=== PATIENT | female | born 1940 | race Caucasian/White ===

== ENCOUNTER 2017-03-17 13:35 | Inpatient (IN) | payer OTHER, BC ==
[2017-03-17 13:39] VITALS: BMI 24.7
--- NOTE | 2017-03-17 14:51 | PDOC ---
History of Present Illness - General Chief Complaint: Revisit, Lab Variance Stated Complaint: LAB VARIANCE, PCP SENT Time Seen by Provider: 03/17/17 14:44 History Source: Patient Exam Limitations: No Limitations - History of Present Illness Initial Comments: 03/17/17 14:55 Patient is a 77-year-old female with no past medical history who presents to the emergency department today complaining of low hemoglobin. Patient states that she was just seen by Dr. Sayda Fay for the first time 2 days ago. She shruthi routine lab work. Today patient was advised by Dr. Fay to come to the emergency department for a hemoglobin of 6. Patient states that she has not seen a primary care doctor in 14 years. Patient has no complaints at this time. Her last stool was yesterday and patient states that it was normal for her. Denies fevers, chills, weakness, shortness of breath, lethargy, chest pain, cough, edema, palpitations, nausea, vomiting, diarrhea, changes in her stool, blood in the stool, or changes in gait. Past History - Travel Traveled outside of the country in the last 30 days: No Close contact w/someone who was outside of country & ill: No - Past Medical History Allergies/Adverse Reactions: Allergies Allergy/AdvReac Type Severity Reaction Status Date / Time No Known Allergies Allergy Verified 03/17/17 13:40 Home Medications: Ambulatory Orders NK [No Known Home Medication] 03/17/17 Other medical history: DENIES MEDICAL HX - Psycho/Social/Smoking Cessation Hx Suicidal Ideation: No Smoking History: Never smoked Have you smoked in the past 12 months: No If you are a former smoker, when did you quit?: 30 YEARS AGO Information on smoking cessation initiated: No Hx Alcohol Use: No Drug/Substance Use Hx: No Review of Systems - Review of Systems Able to Perform ROS?: No Is the patient limited Tajik proficient: No Constitutional: No: Chills, Fever, Malaise, Weakness Respiratory: No: Cough, Shortness of Breath, SOB at Rest, Wheezing Cardiac (ROS): No: Chest Pain, Edema, Lightheadedness, Palpitations, Syncope, Chest Tightness ABD/GI: No: Abdominal Distended, Blood Streaked Bowels, Constipated, Diarrhea, Nausea, Rectal Bleeding, Vomiting, Tarry Stools : No: Burning, Dysuria, Frequency, Flank Pain, Hematuria Integumentary: No: Bruising, Dryness, Rash Neurological: No: Numbness, Paresthesia, Tingling, Weakness Hematologic/Lymphatic: Yes: Anemia. No: Easy Bruising, Swollen Glands All Other Systems: Reviewed and Negative *Physical Exam - Vital Signs Last Vital Signs Temp Pulse Resp BP Pulse Ox 98.1 F 89 16 147/57 100 03/17/17 13:37 03/17/17 13:37 03/17/17 13:37 03/17/17 13:37 03/17/17 13:37 - Physical Exam Comments: 03/17/17 14:59 GENERAL: Well developed, well nourished. Awake and alert. No acute distress. HEENT: Normocephalic, atraumatic. PERRLA, EOMI. No conjunctival pallor. Sclera are non- icteric. Moist mucous membranes. Oropharynx is clear. NECK: Supple. Full ROM. No JVD. Carotid pulses 2+ and symmetric, without bruits. No thyromegaly. No lymphadenopathy. CARDIOVASCULAR: Regular rate and rhythm. No murmurs, rubs, or gallops. Distal pulses are 2+ and symmetric. PULMONARY: No evidence of respiratory distress. Lungs clear to auscultation bilaterally. No wheezing, rales or rhonchi. ABDOMINAL: Soft. Non-tender. Non-distended. No rebound or guarding. No organomegaly. Normoactive bowel sounds. MUSCULOSKELETAL Normal range of motion at all joints. No bony deformities or tenderness. No CVA tenderness. EXTREMITIES: No cyanosis. No clubbing. No edema. No calf tenderness. SKIN: Warm and dry. Normal capillary refill. No rashes. No jaundice. NEUROLOGICAL: Alert, awake, appropriate. Cranial nerves 2-12 intact. No deficits to light touch and temperature in face, upper extremities and lower extremities. No motor deficits in the in face, upper extremities and lower extremities. Normoreflexic in the upper and lower extremities. Normal speech. Toes are down- going bilaterally. Gait is normal without ataxia. PSYCHIATRIC: Cooperative. Good eye contact. Appropriate mood and affect. ED Treatment Course - LABORATORY CBC & Chemistry Diagram: 03/17/17 16:50 03/17/17 16:50 Medical Decision Making - Medical Decision Making 03/17/17 15:02 Patient is a 77-year-old female with no past medical history who presents to the emergency department today complaining of low hemoglobin. We will start workup for anemia of unknown origin. We will redraw labs here in the emergency department. We'll also plan for transfusion. 1. CBC, CMP, PT/INR, TIBC, ferritin, haptoglobin, TSH, stool for occult blood 2. EKG, IV insert 3. Revaluate 03/17/17 16:42 Hemoglobin is 5.9 at this time. 2 units of blood ordered at this time. BUN and creatinine are elevated, however do not know baseline. SHARITA versus chronic changes? Will call Sumeet for admission at this time. 03/17/17 17:[address] Fay and she accepts the patient. Stool for occult blood negative at this time. *DC/Admit/Observation/Transfer Diagnosis at time of Disposition: Anemia Qualifiers: Anemia type: unspecified type Qualified Code(s): D64.9 - Anemia, unspecified - Discharge Dispostion Condition at time of disposition: Guarded Admit: Yes - Referrals Referrals: Sayda Segura [Primary Care Provider] -
[2017-03-17 17:04] LABS: BASOPHIL 0.8 % (0-2.0); EOSINOPHIL 1.3 % (0-4.5); MEAN CELL VOLUME 58.6 fl (80-96); MEAN PLT VOLUME 8.4 fl (7.5-11.1); NEUTROPHILS 78.6 % (42.8-82.8); PLATELET COUNT 282 K/MM3 (134-434); RDW 20.1 % (11.6-15.6); WHITE BLOOD COUNT 9.5 K/mm3 (4.0-10.0)
[2017-03-17 17:06] LABS: MCH 17.6 pg (25.7-33.7)
--- NOTE | 2017-03-17 17:20 | HP ---
Admitting History and Physical - Primary Care Physician PCP: Sayda Segura S - Admission Chief Complaint: severe anemia History of Present Illness: Patient is a 77-year-old female with past medical history of hyperthyroidism (s/ p treatment many years ag), pneumothorax COPD ex tobacco, who presents to the emergency department with severe anemia, low hemoglobin. Patient saw me for the first time in the office 2 days ago. She had routine lab work and her Hg came back at 6 so I advised pt to come to the emergency department for further w/u and treatment.Patient states that she has not seen a primary care doctor in 14 years. Patient has no complaints at this time. Her last stool was yesterday and patient states that it was normal for her. Denies fevers, chills, weakness, shortness of breath, lethargy, chest pain, cough, edema, palpitations, nausea, vomiting, diarrhea, changes in her stool, blood in the stool, or changes in gait. History Source: Patient Limitations to Obtaining History: No Limitations - Past Medical History Pulmonary: Yes: Other (see above) Endocrine: Yes: Hyperthyroidism - Smoking History Smoking history: Former smoker Have you smoked in the past 12 months: No If you are a former smoker, when did you quit?: 30 YEARS AGO - Alcohol/Substance Use Hx Alcohol Use: No History of Substance Use: reports: None - Social History Usual Living Arrangement: Yes: Alone ADL: Independent History of Recent Travel: No Home Medications - Allergies Allergies/Adverse Reactions: Allergies Allergy/AdvReac Type Severity Reaction Status Date / Time No Known Allergies Allergy Verified 03/17/17 13:40 - Home Medications Home Medications: Ambulatory Orders Cephalexin Monohydrate [Keflex -] 500 mg PO BID #14 capsule 03/19/17 Ferrous Sulfate [Feosol] 325 mg PO DAILY #30 tab 03/19/17 Levothyroxine [Synthroid -] 25 mcg PO DAILY@0700 #30 tablet 03/19/17 Family Disease History - Family Disease History Family History: Unremarkable Review of Systems - Review of Systems Constitutional: reports: Unintentional Wgt. Loss. denies: Chills, Fever, Lethargy Eyes: denies: Blind Spots, Blurred Vision, Double Vision HENT: denies: Difficult Swallowing, Ear Pain Neck: denies: Stiffness, Tenderness Cardiovascular: denies: Chest Pain, Edema, Palpitations, Shortness of Breath Respiratory: denies: Cough, SOB Gastrointestinal: denies: Abdominal Pain, Bloating, Constipation, Diarrhea, Vomiting Genitourinary: denies: Dysuria, Flank Pain Musculoskeletal: denies: Back Pain, Extremity Pain Integumentary: denies: Eczema, Rash Neurological: denies: Change in LOC, Headache, Seizure, Syncope Hematology/Lymphatic: denies: Easily Bruised, Excessive Bleeding Psychiatric: denies: Altered Sleep Pattern, Anxiety, Depression Physical Examination Vital Signs: Vital Signs Temperature 98.1 F 03/17/17 13:37 Pulse Rate 89 03/17/17 13:37 Respiratory Rate 16 03/17/17 13:37 Blood Pressure 147/57 03/17/17 13:37 O2 Sat by Pulse Oximetry (%) 100 03/17/17 13:37 Constitutional: Yes: No Distress, Calm Eyes: Yes: Conjunctiva Clear HENT: Yes: Atraumatic Neck: Yes: Supple, Thyromegaly Cardiovascular: Yes: Regular Rate and Rhythm Respiratory: Yes: CTA Bilaterally Gastrointestinal: Yes: Soft. No: Distention, Tenderness Renal/: No: CVA Tenderness - Left, CVA Tenderness - Right Musculoskeletal: No: Joint Stiffness, Joint Swelling Extremities: No: Cold, External Rotation Neurological: Yes: WNL, Alert, Oriented ...Motor Strength: WNL Psychiatric: Yes: WNL, Alert, Oriented. No: Agitated, Suicidal Ideation Labs: CBC, BMP 03/17/17 16:50 Imaging - Results Other: Report Reviewed Assessment/Plan Patient is a 77-year-old female with the above past medical history who presents to the emergency department with severe anemia admit blood transfusion GI, heme eval endocrine eval; f/u labs CAP CT scan d/w ptand daughter at bedside t time 75 min
[2017-03-17 17:23] LABS: INR 1.07 (0.82-1.09); PROTHROMBIN TIME (PATIENT) 11.8 SEC (9.98-11.88)
[2017-03-17 17:30] LABS: ANION GAP 9 (8-16); CO2 24 mmol/L (21-32); GLUCOSE,RANDOM 92 mg/dL (74-106)
[2017-03-17 17:33] LABS: ALK PHOS 166 U/L (45-117); BILIRUBIN,TOTAL 0.3 mg/dL (0.2-1.0); CREATININE 1.7 mg/dL (0.55-1.02); SGOT/AST 20 U/L (15-37); SGPT/ALT 18 U/L (12-78); TOT PROT 7.6 g/dl (6.4-8.2)
[2017-03-17 17:41] LABS: FERRITIN 3.705 ng/ml (6.9-282.5); THYROID STIMULATING HORMONE 8.71 uIU/ml (0.358-3.74)
[2017-03-17 17:53] LABS: POLYCHROMASIA 1+
[2017-03-17 17:54] LABS: ANISOCYTOSIS 1+; HYPOCHROMIA 3+; MACROCYTOSIS 1+; MICROCYTOSIS 1+; OVALOCYTE 1+; POIKILOCYTOSIS 1+
[2017-03-17 17:56] LABS: TEAR DROP CELLS RARE
[2017-03-17 17:57] LABS: PLATELET ESTIMATE ADEQUATE
[2017-03-17 17:59] LABS: RBC MORPHOLOGY COMMENT SLIDE SCANNED
[2017-03-17] MEDS ORDERED: CYANOCOBALAMIN (VITAMIN B-12) 1000 MCG/1 ML VIAL IM ONE (20:51)
[2017-03-18] MEDS: LEVOTHYROXINE NA 25 MCG TABLET (FP) PO SCH (06:27)
[2017-03-18 07:55] LABS: BASOPHIL 0.6 % (0-2.0); EOSINOPHIL 1.4 % (0-4.5); MCHC 30.5 g/dl (32.0-36.0); MEAN CELL VOLUME 65.6 fl (80-96); MEAN PLT VOLUME 8.3 fl (7.5-11.1); NEUTROPHILS 79.6 % (42.8-82.8); PLATELET COUNT 230 K/MM3 (134-434); RDW 25.4 % (11.6-15.6); WHITE BLOOD COUNT 9.3 K/mm3 (4.0-10.0)
[2017-03-18 07:57] LABS: ANION GAP 9 (8-16); CALCIUM 9.1 mg/dL (8.5-10.1); CO2 26 mmol/L (21-32); CREATININE 1.4 mg/dL (0.55-1.02)
[2017-03-18 09:22] LABS: GLUCOSE,RANDOM 103 mg/dL (74-106)
[2017-03-18] MEDS: FERROUS SO4 325 MG TABLET (FP) PO SCH (09:41)
--- NOTE | 2017-03-18 13:51 | PN ---
Progress Note, Physician Chief Complaint: s/p 2 U PRBC feels well no c/o tests and consults dw pt and daughter - Current Medication List Current Medications: Active Medications Ferrous Sulfate (Feosol -) 325 mg PO DAILY [facility] Last Admin: 03/18/17 09:41 Dose: 325 mg Levothyroxine Sodium (Synthroid -) 25 mcg PO DAILY@0700 [facility] Last Admin: 03/18/17 06:27 Dose: 25 mcg - Objective Vital Signs: Vital Signs Temperature 98.0 F 03/18/17 06:51 Pulse Rate 72 03/18/17 06:51 Respiratory Rate 18 03/18/17 06:51 Blood Pressure 174/72 03/18/17 06:51 O2 Sat by Pulse Oximetry (%) 100 03/18/17 01:00 Constitutional: Yes: No Distress, Calm Eyes: Yes: Conjunctiva Clear HENT: Yes: Atraumatic Neck: Yes: Supple Cardiovascular: Yes: Regular Rate and Rhythm Respiratory: Yes: CTA Bilaterally Gastrointestinal: Yes: Soft. No: Distention, Tenderness Genitourinary: No: CVA Tenderness - Left, CVA Tenderness - Right, Hematuria Musculoskeletal: No: Joint Stiffness, Joint Swelling Extremities: No: Cold, Cool Edema: No Peripheral Pulses WNL: Yes Neurological: Yes: WNL, Alert, Oriented ...Motor Strength: WNL Psychiatric: Yes: WNL, Alert, Oriented. No: Agitated, Suicidal Ideation Labs: CBC, BMP 03/18/17 06:30 03/18/17 06:30 INR, PTT INR 1.07 (0.82-1.09) 03/17/17 16:50 - ....Imaging Other: Report Reviewed Assessment/Plan Patient is a 77-year-old female with the above past medical history who presents to the emergency department with severe anemia admit blood transfusion GI, heme eval; consults appreciated and d/w pt; needs EGD and colonoscopy; pt prefers to have them outpt endocrine f/u; needs thyroid US and thyroid biopsy as outpt chest CT noted - possible bilateral INF vs atelectasis; no cough/ SOB; pulm eval abdomen CT noted - ovarian cyst; needs pelvic TV US, [facility] eval d/w pt and daughter at bedside t time 45 min
[2017-03-18] MEDS ORDERED: POTASSIUM CHLORIDE TABS 20 MEQ TABLET.ER (FP) PO ONE (13:53)
--- NOTE | 2017-03-18 14:42 | CONSULT ---
Consult Consult Specialty:: Hematology Referred by:: Dr.Ana Segura Reason for Consultation:: Anemia - History of Present Illness History of Present Illness: Mrs. León is a very pleasant 77 year old female who was admitted from 's office for new onset Anemia. Patient seen and examined. Patient's daughter at bedside. Patient mentioned that she has not seen a physician for years and she most recently saw who ordered labs as an OP, as Hgb was 5.6g/dl, prompted ER visit. She mentioned that she had no complains except that she felt tired and her ankles swell , which she attributed to her age. Otherwise , she denies n /v/cough/fever/chest pain/diarrhea/melena/unintentional weight loss Of note, she was told that she has "hyperactive" thyroid and she is a bit unsure of the hx of the thyroid nodule as she describes it to disappear and then re-appears. - Alcohol/Substance Use Hx Alcohol Use: No - Smoking History Smoking history: Never smoked Have you smoked in the past 12 months: No If you are a former smoker, when did you quit?: 30 YEARS AGO Home Medications - Allergies Allergies/Adverse Reactions: Allergies Allergy/AdvReac Type Severity Reaction Status Date / Time No Known Allergies Allergy Verified 03/17/17 13:40 - Home Medications Home Medications: Ambulatory Orders NK [No Known Home Medication] 03/17/17 Family Disease History - Family Disease History Family History: Denies Review of Systems - Review of Systems Constitutional: reports: Weakness. denies: Diaphoresis, Fever, Lethargy, Loss of Appetite, Unintentional Wgt. Loss HENT: reports: Hearing Loss. denies: Difficult Swallowing Neck: reports: Lumps, Other (nodule in the right side neck). denies: Decreased ROM Cardiovascular: denies: Chest Pain, Edema, Palpitations, Shortness of Breath Respiratory: denies: Cough, Exercise Intolerance, Hemoptysis Gastrointestinal: reports: Indigestion. denies: Abdominal Pain, Constipation, Melena, Nausea, Rectal Bleeding, Vomiting Genitourinary: denies: Burning Hematology/Lymphatic: denies: Easily Bruised, Excessive Bleeding, Swollen Glands Physical Exam Vital Signs: Vital Signs Temperature 98.6 F 03/18/17 10:00 Pulse Rate 82 03/18/17 10:00 Respiratory Rate 18 03/18/17 10:00 Blood Pressure 167/76 03/18/17 10:00 O2 Sat by Pulse Oximetry (%) 99 03/18/17 09:00 Constitutional: Yes: Well Nourished, No Distress, Calm Eyes: Yes: Conjunctiva Clear, EOM Intact HENT: Yes: Atraumatic, Normocephalic Neck: Yes: Supple, Trachea Midline, Other (right sided thyroid nodule). No: Lymphadenopathy Cardiovascular: Yes: Regular Rate and Rhythm Respiratory: Yes: Regular, CTA Bilaterally Gastrointestinal: Yes: Normal Bowel Sounds, Soft Edema: No Labs: CBC, BMP 03/18/17 06:30 03/18/17 06:30 Imaging - Results Chest X-ray: Report Reviewed Cat Scan: Report Reviewed Problem List - Problems (1) Anemia Code(s): D64.9 - ANEMIA, UNSPECIFIED Qualifiers: Anemia type: unspecified type Qualified Code(s): D64.9 - Anemia, unspecified (2) Hyperthyroidism determined by thyroid function test Code(s): E05.90 - THYROTOXICOSIS, UNSP WITHOUT THYROTOXIC CRISIS OR STORM R94.6 - ABNORMAL RESULTS OF THYROID FUNCTION STUDIES (3) SHARITA (acute kidney injury) Code(s): N17.9 - ACUTE KIDNEY FAILURE, UNSPECIFIED Assessment/Plan Severe Microcytic Iron deficiency anemia Renal Failure Elevated ESR Hyperthyroidism Thyroid nodule. -ferrtin of 3, likely was on ongoing progress -s/p 2U prbc with appropriate response. -give IV iron daily length of stay -Endo/GI consult placed. -will await the rest of the screening anemia labs including JUAN ANTONIO. will follow
[2017-03-18] MEDS ORDERED: IRON SUCROSE INJECTION 100 MG in SODIUM CHLORIDE 95 ML IVPB ONE (16:00)
[2017-03-18] MEDS ORDERED: PT OWN MED DRAWER 7, Y5N ONE (16:02)
--- NOTE | 2017-03-18 16:54 | CONSULT ---
Consult Consult Specialty:: Endocrinology Referred by:: Dr Sayda Segura Reason for Consultation:: Thyroid mass - History of Present Illness Chief Complaint: Anemia History of Present Illness: This is a 77-year-old female with h/o hyperthyroidism treated with Radioiodine many years ago who hadn't seen any physician for about 14 years until recently presented to the emergency department today complaining of low hemoglobin. Patient stated that she was just seen by Dr. Sayda Fay for the first time 2 days ago and found to have low Hemoglobin. . Patient has no complaints at this time except for feeling a little tired. She says she notices the right neck mass off and on, - History Source History Provided By: Patient, Family Member, Medical Record Limitations to Obtaining History: No Limitations - Past Medical History Endocrine: Yes: Hyperthyroidism - Alcohol/Substance Use Hx Alcohol Use: No - Smoking History Smoking history: Never smoked Have you smoked in the past 12 months: No If you are a former smoker, when did you quit?: 30 YEARS AGO Home Medications - Allergies Allergies/Adverse Reactions: Allergies Allergy/AdvReac Type Severity Reaction Status Date / Time No Known Allergies Allergy Verified 03/17/17 13:40 - Home Medications Home Medications: Ambulatory Orders NK [No Known Home Medication] 03/17/17 Review of Systems - Review of Systems Constitutional: reports: Weakness Eyes: reports: No Symptoms HENT: reports: No Symptoms Neck: reports: No Symptoms Cardiovascular: reports: No Symptoms Respiratory: reports: No Symptoms Gastrointestinal: reports: No Symptoms Genitourinary: reports: No Symptoms Musculoskeletal: reports: No Symptoms Integumentary: reports: No Symptoms Neurological: reports: No Symptoms Endocrine: reports: No Symptoms Physical Exam Vital Signs: Vital Signs Temperature 98.1 F 03/18/17 15:33 Pulse Rate 76 03/18/17 15:33 Respiratory Rate 18 03/18/17 15:33 Blood Pressure 155/75 03/18/17 15:33 O2 Sat by Pulse Oximetry (%) 99 03/18/17 09:00 Constitutional: Yes: No Distress, Calm Eyes: Yes: Conjunctiva Clear, EOM Intact HENT: Yes: Atraumatic, Normocephalic Neck: Yes: Supple, Trachea Midline, Thyromegaly, Other (Palpable Rt thyroid nodule) Labs: CBC, BMP 03/18/17 06:30 03/18/17 06:30 Imaging - Results Cat Scan: Report Reviewed Assessment/Plan AP; Thyroid nodules: 2.8 cm and 1.9 cm low attenuation lesions in Rt thyroid. Hypothyroidism s/p RadioIodine ablation of thyroid for Hyperthyroidism Anemia ?Atelectasis ?Colitis Sonogram of thyroid. Will probably need FNA of the nodules 5 to 10 % risk of malignancy with thyroid nodules discussed On LT4 25 QD Repeat TFT in 4 weeks. Will f/u
--- NOTE | 2017-03-18 17:23 | CON.PULM ---
Consult Consult Specialty:: PULM/CCM Referred by:: BALWINDER Reason for Consultation:: Abnormal CT chest - History of Present Illness Chief Complaint: Symptomatic Anemia History of Present Illness: 77 F, with listed medical history. Previous 2 PPD smoker. Developed a spontaneous Right PTX about 30 years ago that required chest tube decompression here at [facility]. Patient quit smoking after this event. Admitted due to symptomatic anemia. She received 2 units of RBCs and reports feeling better. No CP or overt SOB, but some ESCOBAR. No fever or chills. No hemoptysis. CT : scattered areas of ground glass opacities -> likely atelectasis and chronic disease. DDX : Mild pulmonary vascular congestion related to severe anemia (patient also developed some mild LE peripheral edema over the past several weeks). - History Source History Provided By: Patient Limitations to Obtaining History: No Limitations - Past Medical History Pulmonary: Yes: Other (Right PTX ). No: O2 Dependent, Pulmonary Embolus Endocrine: Yes: Hyperthyroidism - Alcohol/Substance Use Hx Alcohol Use: No - Smoking History Smoking history: Never smoked Have you smoked in the past 12 months: No If you are a former smoker, when did you quit?: 30 YEARS AGO Home Medications - Allergies Allergies/Adverse Reactions: Allergies Allergy/AdvReac Type Severity Reaction Status Date / Time No Known Allergies Allergy Verified 03/17/17 13:40 - Home Medications Home Medications: Ambulatory Orders NK [No Known Home Medication] 03/17/17 Review of Systems - Review of Systems Constitutional: reports: Lethargy, Malaise. denies: Chills, Fever, Night Sweats , Unintentional Wgt. Loss Eyes: reports: No Symptoms HENT: reports: No Symptoms Neck: reports: No Symptoms Cardiovascular: reports: No Symptoms Respiratory: reports: SOB on Exertion. denies: Cough, Hemoptysis, Snoring, SOB , Wheezing Gastrointestinal: reports: No Symptoms Genitourinary: reports: No Symptoms Breasts: reports: No Symptoms Reported Musculoskeletal: reports: No Symptoms Integumentary: reports: No Symptoms Neurological: reports: No Symptoms Endocrine: reports: No Symptoms Hematology/Lymphatic: reports: No Symptoms Psychiatric: reports: No Symptoms Physical Exam Vital Sings: Vital Signs Temperature 98.1 F 03/18/17 15:33 Pulse Rate 76 03/18/17 15:33 Respiratory Rate 18 03/18/17 15:33 Blood Pressure 155/75 03/18/17 15:33 O2 Sat by Pulse Oximetry (%) 99 03/18/17 09:00 Constitutional: Yes: No Distress, Calm Eyes: Yes: Conjunctiva Clear, EOM Intact HENT: Yes: Atraumatic, Normocephalic Neck: Yes: Supple, Trachea Midline Cardiovascular: Yes: Regular Rate and Rhythm Respiratory: Yes: CTA Bilaterally. No: Accessory Muscle Use, Orthopnea, Rales, Rhonchi, SOB, Stridor, Tachypnea, Wheezes ...Inspection: Yes: WNL Gastrointestinal: Yes: Normal Bowel Sounds, Soft Renal/: Yes: WNL Musculoskeletal: Yes: WNL Extremities: Yes: WNL Edema: Yes Peripheral Pulses WNL: Yes Integumentary: Yes: WNL Neurological: Yes: WNL, Alert, Oriented ...Motor Strength: WNL Psychiatric: Yes: WNL, Alert, Oriented Labs: CBC, BMP 03/18/17 06:30 03/18/17 06:30 Imaging - Results Chest X-ray: Report Reviewed, Image Reviewed Cat Scan: Report Reviewed, Image Reviewed Problem List - Problems (1) Anemia Code(s): D64.9 - ANEMIA, UNSPECIFIED Qualifiers: Anemia type: unspecified type Qualified Code(s): D64.9 - Anemia, unspecified (2) Hyperthyroidism determined by thyroid function test Code(s): E05.90 - THYROTOXICOSIS, UNSP WITHOUT THYROTOXIC CRISIS OR STORM R94.6 - ABNORMAL RESULTS OF THYROID FUNCTION STUDIES (3) Atelectasis of both lungs Code(s): J98.11 - ATELECTASIS (4) 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 Assessment/Plan Transfusional support to normal transfusion thresholds O2 as needed No indication for steroids at this time PFTs once stable as an outpatient BD TX PRN Continued smoking abstinence discussed I do not feel repeat imaging would be necessary in this scenario Will follow Thank you. Dr Mckeon
--- NOTE | 2017-03-18 17:45 | CON.GI ---
Consult - History of Present Illness Chief Complaint: Asymoptomatic found with severe anemia H/H 5.8 History of Present Illness: Patient is a 77 year old female with past medical history of hyperthyroidism presented to the ED on the recommendation of Dr. Segura after receiving low hemoglobin results. Patient states that she has not been seen by a physician for over 20 years. She was seen by Dr. Segura for the first time after being encouraged by her family. Patient states than she was feeling fine except for feeling very tired over the past month. Her bowel movements have been normal. In the past she had a transient episode of alternating bouts of diareah and constipation but this was self limited. She reports decreased appetite over the past month period, a weight loss of 17 lbs during this time. She denies dysphagia, abdominal pain, nausea vomiting, black or bloody stools, chest pains , palpitations. Her son has a history of "ibd". She has never had an EGD or colonoscopy. - History Source History Provided By: Patient, Family Member - Past Medical History Pulmonary: Yes: Other (Right PTX ). No: O2 Dependent, Pulmonary Embolus Endocrine: Yes: Hyperthyroidism - Alcohol/Substance Use Hx Alcohol Use: No - Smoking History Smoking history: Never smoked Have you smoked in the past 12 months: No If you are a former smoker, when did you quit?: 30 YEARS AGO Home Medications - Allergies Allergies/Adverse Reactions: Allergies Allergy/AdvReac Type Severity Reaction Status Date / Time No Known Allergies Allergy Verified 03/17/17 13:40 - Home Medications Home Medications: Ambulatory Orders NK [No Known Home Medication] 03/17/17 Family Disease History - Family Disease History Family Disease History: Other: Son ("IBD") Review of Systems - Review of Systems Constitutional: reports: Lethargy, Malaise, Unintentional Wgt. Loss (poor appetite and weight loss of 17 lbs over one month) HENT: reports: No Symptoms Neck: reports: Lumps (Thyroid nodule) Cardiovascular: reports: No Symptoms Respiratory: reports: SOB on Exertion Gastrointestinal: reports: No Symptoms. denies: Abdominal Pain, Bloating, Constipation, Diarrhea, Dysphagia, Indigestion, Melena, Nausea, Rectal Bleeding , Vomiting, Vomiting Blood, Other Genitourinary: reports: No Symptoms Musculoskeletal: reports: No Symptoms Integumentary: reports: No Symptoms Neurological: reports: No Symptoms Endocrine: reports: Unexplained Weight Loss. denies: No Symptoms, Excessive Sweating, Flushing, Increased Hunger, Increased Thirst, Unexplained Weight Gain (" unintentional loss 17 lb over one month period'), Other Hematology/Lymphatic: reports: No Symptoms Physical Exam-GI Vital Signs: Vital Signs Temperature 98.1 F 03/18/17 17:22 Pulse Rate 78 03/18/17 17:22 Respiratory Rate 20 03/18/17 17:22 Blood Pressure 143/62 03/18/17 17:22 O2 Sat by Pulse Oximetry (%) 99 03/18/17 09:00 Constitutional: Yes: Well Nourished, No Distress, Calm Eyes: Yes: WNL HENT: Yes: WNL, Atraumatic, Normocephalic Neck: Yes: Thyromegaly (right neck thyroid nodule) Cardiovascular: Yes: WNL, Regular Rate and Rhythm Respiratory: Yes: WNL, Regular, CTA Bilaterally Gastrointestinal Inspection: Yes: WNL. No: Ascites, Distention, Hernia, Scars, Other ...Auscultate: Yes: Normoactive Bowel Sounds ...Palpate: Yes: Soft. No: Firm/Rigid, Guarding, Hepatomegaly, Mass, Pulsatile Mass, Splenomegaly, Tenderness, Tenderness, Epigastium, Tenderness, Rebound, Other ...Percussion: Yes: Tympanitic Musculoskeletal: Yes: WNL Extremities: Yes: WNL Edema: LLE: 1+, RLE: 1+ Neurological: Yes: WNL Psychiatric: Yes: WNL Labs: CBC, BMP 03/18/17 06:30 03/18/17 06:30 INR, PTT INR 1.07 (0.82-1.09) 03/17/17 16:50 Problem List - Problems (1) Anemia Code(s): D64.9 - ANEMIA, UNSPECIFIED Qualifiers: Anemia type: unspecified type Qualified Code(s): D64.9 - Anemia, unspecified (2) Hyperthyroidism determined by thyroid function test Assessment/Plan: As per patient had an upcoming outpatient appointment for sonogram of the thyroid gland Code(s): E05.90 - THYROTOXICOSIS, UNSP WITHOUT THYROTOXIC CRISIS OR STORM R94.6 - ABNORMAL RESULTS OF THYROID FUNCTION STUDIES Assessment/Plan Regis looks great. She remains asymptomatic. I have noted her H/H has increased 8.6/28.2 after 2 units of PRBC. I have noted that she is receiving IV iron. Her recent weight loss of 17lbs, and iron deficiency anemia should be evaluated. I recommend that she should have an EGD and colonoscopy. Considering that she has not been seen by a physician in many years, she should first be cleared by cardiology. I have explained my recommendation for EGD and colonoscopy and I have reviewed the risks including bleeding and perforation. She is willing to proceed with informed consent. However, the patient and family has requested Dr. Willadr to perform the procedure. I have explained to the patient and family that Dr. Willard is willing to perform the procedure once he has returned from vacation at the end of next week. This can be done in or outpatient if she has been medically cleared. I have explained to her that if her cbc starts trending downwards or she becomes unstable the procedure may have to be done sooner by the covering physician Dr. Joy Rod. I will leave the ultimate decision to Dr. Segura. She understands and agrees. PLAN EGD and colonoscopy once medically cleared by cardiology May be done outpatient by Dr. Willard, if ok with Dr. Segura Keep hemoglobin >8 Await comprehensive lab studies including iron studies, tumor markers
--- NOTE | 2017-03-18 23:23 | CON.OBG ---
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 Sayda Segura Reason for Consultation:: 77yo P2 with left adnexal cystic mass on CT scan - History of Present Illness Chief Complaint: Patient was admitted with severe anemia and some weakness. In the course of her evaluation found to have a cystic left adnexal mass. History of Present Illness: Not seen by doctors x 14 yrs and has been doing well until 2-3 months ago when she began to lose weight. The pt reports losing 15lb/3mo. She reports episodes of abdominal bloating with occasional diarrhea and constipation. She denies pain , nausea, vomiting, fever or chills. No postmenopausal bleeding. 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 No: O2 Dependent, Pulmonary Embolus Gastrointestinal: Yes: Constipation Hepatobiliary: No: Cirrhosis, Cholelithiasis, Cholecystitis, Choledocholithiasis , Hepatitis A, Hepatitis B, Hepatitis C, Other Renal/: No: Renal Failure, Renal Inusuff, BPH, Cancer, Hematuria, Hemodialysis , Neurogenic Bladder, Renal Calculi, UTI, Other ...: No ...Para: 2 Heme/Onc: Yes: Anemia Infectious Disease: No: AIDS, C-Diff, Herpes Zoster, HIV, MRSA, STD's, Tuberculosis, VREF, Other Psych: No: Addictions, Anxiety, Bipolar, Depression, Panic, Psychosis, Schizophrenia, Other Musculoskeletal: No: Bursitis, Chronic low back pain, Hemiparesis, Hemiplegia, Osteoarthritis, Paraplegia, Other Rheumatology: No: Fibromyalgia, Gout, Lupus, Rheumatoid Arthritis, Sarcoidosis, Vasculitis, Other ENT: No: Allergic Rhinitis, Sinusitis, Other Endocrine: Yes: Hyperthyroidism, Hypothyroidism (s/p radioablation for hyperthyroidism) Dermatology: No: Basal Cell, Cellulitis, Eczema, Melanoma, Psoriasis, Squamous Cell, Other - Past Surgical History Past Surgical History: Yes: (x2 via midline vertical incison, 1st C/S complicated by wound dehiscence) - Alcohol/Substance Use Hx Alcohol Use: No History of Substance Use: reports: None - Smoking History Smoking history: Former smoker Have you smoked in the past 12 months: No If you are a former smoker, when did you quit?: 30 YEARS AGO - Social History Usual Living Arrangement: Alone ADL: Independent History of Recent Travel: No Home Medications - Allergies Allergies/Adverse Reactions: Allergies Allergy/AdvReac Type Severity Reaction Status Date / Time No Known Allergies Allergy Verified 03/17/17 13:40 - Home Medications Home Medications: Ambulatory Orders NK [No Known Home Medication] 03/17/17 Family Disease History - Family Disease History Family Disease History: Other: Son ("IBD"), Daughter (lupus) Review of Systems - Review of Systems Constitutional: reports: Unintentional Wgt. Loss, Weakness Eyes: reports: No Symptoms HENT: reports: No Symptoms Neck: reports: No Symptoms Cardiovascular: reports: No Symptoms Respiratory: reports: No Symptoms Gastrointestinal: reports: Constipation Genitourinary: reports: No Symptoms Breasts: reports: No Symptoms Reported Musculoskeletal: reports: No Symptoms Integumentary: reports: No Symptoms Neurological: reports: No Symptoms Endocrine: reports: Unexplained Weight Loss Hematology/Lymphatic: reports: No Symptoms Psychiatric: reports: No Symptoms Pain Intensity: 0 Physical Exam-WASTE DUSTER Vital Signs: Vital Signs Temperature 98.1 F 03/18/17 17:22 Pulse Rate 78 03/18/17 17:22 Respiratory Rate 20 03/18/17 20:36 Blood Pressure 143/62 03/18/17 17:22 O2 Sat by Pulse Oximetry (%) 100 03/18/17 20:36 Constitutional: Yes: Well Nourished, No Distress, Calm Eyes: Yes: WNL, Conjunctiva Clear HENT: Yes: WNL, Atraumatic, Normocephalic Neck: Yes: WNL, Supple, Trachea Midline Cardiovascular: Yes: WNL, Regular Rate and Rhythm Respiratory: Yes: WNL, Regular, CTA Bilaterally Gastrointestinal: Yes: WNL, Normal Bowel Sounds, Soft. No: Palpable Mass, Pulsatile Mass ...Rectal Exam: Yes: Deferred Renal/: Yes: WNL Pelvis: Yes: Other (declined) External Genitalia: Yes: Other (declined) Internal Exam Deferred: Yes Vaginal Exam: Yes: Other (declined) Musculoskeletal: Yes: WNL Extremities: Yes: WNL Edema: No Integumentary: Yes: WNL Neurological: Yes: WNL, Alert, Oriented ...Motor Strength: WNL Psychiatric: Yes: WNL, Alert, Oriented Labs: CBC, BMP 03/18/17 06:30 03/18/17 06:30 Assessment/Plan 77yo P2 with severe anemia and episodes of abdominal bloating and weight loss, found to have a 5cm left adnexal cystic mass. The pt is undergoid evlauation and treatment for severe anemia. I will follow the pt. Pelvic US is planned either as in-patient or outpatient. I discussed with the pt that all adnexal masses are considered to be potentially cancer until proven otherwise. I gave her my office information and advised to follow-up after discharge. Possible need for surgical excision of the left adnexal mass explained. This can be arranged after the pt is discharged and her w/u is completed.
[2017-03-19 06:07] LABS: FREE T3 2.7 pg/mL (2.0-4.4)
[2017-03-19 06:07] LABS: SERUM IRON 12 ug/dL (27-139); TOTAL IRON BINDING CAPACITY 404 ug/dL (250-450); UIBC 392 ug/dL (118-369)
[2017-03-19] MEDS: LEVOTHYROXINE NA 25 MCG TABLET (FP) PO SCH (06:25)
[2017-03-19 06:44] VITALS: TEMP 97.9
[2017-03-19 07:18] LABS: BASOPHIL 0.7 % (0-2.0); EOSINOPHIL 2.1 % (0-4.5); MCH 20.1 pg (25.7-33.7); MCHC 31.5 g/dl (32.0-36.0); MEAN CELL VOLUME 63.8 fl (80-96); MEAN PLT VOLUME 8.3 fl (7.5-11.1); NEUTROPHILS 78.7 % (42.8-82.8); PLATELET COUNT 214 K/MM3 (134-434); WHITE BLOOD COUNT 8.8 K/mm3 (4.0-10.0)
[2017-03-19 07:45] LABS: ANION GAP 10 (8-16); CALCIUM 8.7 mg/dL (8.5-10.1); CO2 24 mmol/L (21-32); CREATININE 1.4 mg/dL (0.55-1.02)
[2017-03-19 08:18] LABS: GLUCOSE,RANDOM 96 mg/dL (74-106)
[2017-03-19] MEDS: FERROUS SO4 325 MG TABLET (FP) PO SCH (09:57)
--- NOTE | 2017-03-19 10:03 | PN ---
Progress Note (short form) - Note Progress Note: PULMONARY Denies shortness of breath, cough, fevers or chills. Last Vital Signs Temp Pulse Resp BP Pulse Ox 97.9 F 73 20 142/64 100 03/19/17 06:42 03/19/17 06:42 03/19/17 06:42 03/19/17 06:42 03/18/17 20:36 Gen: NAD at rest Heart: RRR Lung: decreased breath sounds at the bases Abd: soft, nontender Ext: distal edema CBC, BMP 03/19/17 06:30 03/19/17 06:30 Active Medications Ferrous Sulfate (Feosol -) 325 mg PO DAILY [facility] Last Admin: 03/19/17 09:57 Dose: 325 mg Levothyroxine Sodium (Synthroid -) 25 mcg PO DAILY@0700 [facility] Last Admin: 03/19/17 06:25 Dose: 25 mcg A/P Microcytic Anemia s/p PRBC transfusions Acute Kidney Injury Hyperthyroidism Nonspecific infiltrates on CT chest - f/u echocardiogram - outpt PFTs due to smoking history - GI evaluation in progress - DVT prophylaxis
[2017-03-19 11:32] VITALS: BP 155/88; PULSE 77
--- NOTE | 2017-03-19 11:53 | CON.CARD ---
Consult Consult Specialty:: Cardiology Referred by:: Sayda Segura MD Reason for Consultation:: Pre-procedural cardiovascular evaluation - History of Present Illness Chief Complaint: Severe anemia History of Present Illness: Patient is a 77-year-old female with past medical history hypothyroidism, previous 2 PPD smoker, spontaneous right PTX 30 years ago post chest tube decompression referred for low hemoglobin of 6 with symptomatic fatigue over last month, inadvertent weight loss, but denies abd pain, melena, hematochezia, NSAID use, chest pain, dyspnea, near or true syncope, palpitations, orthopnea, PND or LE edema. 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 No: O2 Dependent, Pulmonary Embolus Gastrointestinal: Yes: Constipation Hepatobiliary: No: Cirrhosis, Cholelithiasis, Cholecystitis, Choledocholithiasis , Hepatitis A, Hepatitis B, Hepatitis C, Other Renal/: No: Renal Failure, Renal Inusuff, BPH, Cancer, Hematuria, Hemodialysis , Neurogenic Bladder, Renal Calculi, UTI, Other ...: No Infectious Disease: No: AIDS, C-Diff, Herpes Zoster, HIV, MRSA, STD's, Tuberculosis, VREF, Other Psych: No: Addictions, Anxiety, Bipolar, Depression, Panic, Psychosis, Schizophrenia, Other Musculoskeletal: No: Bursitis, Chronic low back pain, Hemiparesis, Hemiplegia, Osteoarthritis, Paraplegia, Other Rheumatology: No: Fibromyalgia, Gout, Lupus, Rheumatoid Arthritis, Sarcoidosis, Vasculitis, Other ENT: No: Allergic Rhinitis, Sinusitis, Other Endocrine: Yes: Hyperthyroidism Dermatology: No: Basal Cell, Cellulitis, Eczema, Melanoma, Psoriasis, Squamous Cell, Other - Past Surgical History Past Surgical History: Yes: (x2 via midline vertical incison, 1st C/S complicated by wound dehiscence) - Alcohol/Substance Use Hx Alcohol Use: No History of Substance Use: reports: None - Smoking History Smoking history: Never smoked Have you smoked in the past 12 months: No If you are a former smoker, when did you quit?: 30 YEARS AGO - Social History Usual Living Arrangement: Alone ADL: Independent History of Recent Travel: No Home Medications - Allergies Allergies/Adverse Reactions: Allergies Allergy/AdvReac Type Severity Reaction Status Date / Time No Known Allergies Allergy Verified 03/17/17 13:40 - Home Medications Home Medications: Ambulatory Orders NK [No Known Home Medication] 03/17/17 Family Disease History - Family Disease History Family Disease History: Other: Son ("IBD"), Daughter (lupus) Review of Systems - Review of Systems Constitutional: reports: Weakness Vital Signs: Vital Signs Temperature 97.9 F 03/19/17 09:00 Pulse Rate 77 03/19/17 09:00 Respiratory Rate 20 03/19/17 09:00 Blood Pressure 155/88 03/19/17 09:00 O2 Sat by Pulse Oximetry (%) 100 03/18/17 20:36 Constitutional: Yes: No Distress, Calm Neck: Yes: Supple Respiratory: Yes: Regular, CTA Bilaterally Gastrointestinal: Yes: Soft, Hypoactive Bowel Sounds Cardiovascular: Yes: Regular Rate and Rhythm JVD: No Carotid Bruit: No Heart Sounds: Yes: S1, S2 Murmur: Yes: Systolic Murmur, Grade 1 Edema: No - Other Data Labs, Other Data: CBC, BMP 03/19/17 06:30 03/19/17 06:30 INR, PTT INR 1.07 (0.82-1.09) 03/17/17 16:50 Troponin, BNP 03/19/17 06:30 B-Natriuretic Peptide 1331.16 H Troponin, BNP 03/19/17 06:30 B-Natriuretic Peptide 1331.16 H NSR @ [address]-T changes Echo: Pending Imaging - Results Cat Scan: Report Reviewed (CT : scattered areas of ground glass opacities -> likely atelectasis and chronic disease.) EKG: Report Reviewed (NSR @ [address]-T changes) Problem List - Problems (1) SHARITA (acute kidney injury) Code(s): N17.9 - ACUTE KIDNEY FAILURE, UNSPECIFIED (2) Anemia Code(s): D64.9 - ANEMIA, UNSPECIFIED Qualifiers: Anemia type: unspecified type Qualified Code(s): D64.9 - Anemia, unspecified (3) Atelectasis of both lungs Code(s): J98.11 - ATELECTASIS (4) 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 (5) Pre-procedural cardiovascular examination Code(s): Z01.810 - ENCOUNTER FOR PREPROCEDURAL CARDIOVASCULAR EXAMINATION (6) Hypothyroidism Code(s): E03.9 - HYPOTHYROIDISM, UNSPECIFIED Qualifiers: Hypothyroidism type: unspecified Qualified Code(s): E03.9 - Hypothyroidism, unspecified Assessment/Plan 1. Pre-procedural cardiovascular evaluation 2. Hypothyroidism 3. Microcytic Anemia s/p PRBC transfusions 4. Acute Kidney Injury 5. Nonspecific infiltrates on CT chest P:1. Transfuse to maintain Hgb>8.0, f/u iron studies and tumor markers 2. F/u echocardiogram results, dose thyroid replacement per TSH 3. Given absence of symptoms of acute coronary syndrome, decompensated CHF or malignant arrhythmia, there are no absolute cardiovascular contraindications against proceeding with planned EGD/colonoscopy 4. Outpt PFTs due to smoking history, IS, BD prn 5. Thank you for consultative opportunity
--- NOTE | 2017-03-19 13:10 | DS ---
Physical Examination Vital Signs: Vital Signs Temperature 97.9 F 03/19/17 09:00 Pulse Rate 77 03/19/17 09:00 Respiratory Rate 20 03/19/17 09:00 Blood Pressure 155/88 03/19/17 09:00 O2 Sat by Pulse Oximetry (%) 100 03/18/17 20:36 Findings/Remarks: feeling well, wants to go home, has more tests scheduled for tomorrow (mammogram , thyroid US) which can be done outpt only. Has a small area of phlebitis LUE forearm over the site of the peripheral IV (removed); d/w pt and daughter local ice, topical bacitracin, if worse or not better by tomorrow to start po keflex; ordered from pharmacy; if fever > 101 to RTER. consults reviewed and d.w pt and aprilagamericoer at bedside; w/u needed EGD colonoscopy , ROCKET ENGINE TESTER US, heme f/u, endocrine f.u and thyroid US and biopsy; pt said she will do them all BP borderline high; pt prefers not to take any meds now; likes and eats salty food; advised LS diet, check BP home and call me if > 150/90; high TSH, started on synthroid, f/u TFTs outpt; po iron; f/ u labs outpt pulm consult d/w pt; needs incentive spirometry; f/u chest CT outpt and pulm f/ u outpt seen by cardiology for EGD colonoscopy clearance echo WNL d/w pt and daughter all the above scripts done t time 45 min Constitutional: Yes: No Distress, Calm Eyes: Yes: Conjunctiva Clear HENT: Yes: Atraumatic Neck: Yes: Supple Cardiovascular: Yes: Regular Rate and Rhythm Respiratory: Yes: Regular, CTA Bilaterally Gastrointestinal: Yes: Soft Renal/: No: CVA Tenderness - Left, CVA Tenderness - Right, Hematuria Musculoskeletal: No: Back Pain, Joint Stiffness Extremities: Yes: Other (L superficial phlebitis). No: Calf Tenderness, Cold, Cool, Cyanosis Edema: No Peripheral Pulses WNL: Yes Integumentary: No: Rash, Venous Stasis Changes Neurological: Yes: WNL, Alert, Oriented ...Motor Strength: WNL Psychiatric: Yes: WNL, Alert, Oriented. No: Agitated, Suicidal Ideation Labs: CBC, BMP 03/19/17 06:30 03/19/17 06:30 Discharge Summary Reason For Visit: ANEMIA Current Active Problems SHARITA (acute kidney injury) (Acute) Anemia (Acute) Atelectasis of both lungs (Acute) 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) (Acute) Hyperthyroidism determined by thyroid function test (Acute) Hypothyroidism (Acute) Pre-procedural cardiovascular examination (Acute) Procedures: Principal: blood transfusions for severe anemia Other Procedures: CAP CT, GI, heme eval and w/u of anemia Hospital Course: improved with above; also seen by endocrine for thyroid mass, ROCKET ENGINE TESTER for ovariancyst,pulm for abNL chest CT DC home, f/u as advised. Condition: Guarded - Instructions Diet, Activity, Other Instructions: f/u PCP and labs in 1 week; check BP home call MD if >160/90; check BP in office in 1 week; LS diet GI dr Willard for EGD colonoscopy next week outpt f/u chest CT in 1 month cardiology, pulmonary f/u endocrine f/u TFTs x 1 months; thyroid biopsy outpt ROCKET ENGINE TESTER f/u for ovarian cyst, TV/US outpt f/u tumor markers heme f/u dr Gomez, spep upep results pending take meds as advised local cold compresses L forearm superficial phlebitis, topical bacitracin; if not better by tomorrow start keflex (ordered); if worse, puss/ fluctuence, fever /chills call me ewa and go to ER RTER if any CP/SOB/ bleed d/w pt and daughter Referrals: Sayda Segura [Primary Care Provider] - Eddie Willard MD [Staff Physician] - Ap Rizzo MD, MD [Staff Physician] - Luisito Gomez MD [Staff Physician] - Ronny Whitman MD [Staff Physician] - Alvino Hanna MD [Staff Physician] - Disposition: HOME - Home Medications Comprehensive Discharge Medication List: Ambulatory Orders Cephalexin Monohydrate [Keflex -] 500 mg PO BID #14 capsule 03/19/17 Ferrous Sulfate [Feosol] 325 mg PO DAILY #30 tab 03/19/17 Levothyroxine [Synthroid -] 25 mcg PO DAILY@0700 #30 tablet 03/19/17
--- NOTE | 2017-03-19 16:46 | EKG ---
Test Reason : Blood Pressure : / mmHG Vent. Rate : 072 BPM Atrial Rate : 072 BPM P-R Int : 150 ms QRS Dur : 074 ms QT Int : 414 ms P-R-T Axes : 034 -14 050 degrees QTc Int : 453 ms NORMAL SINUS RHYTHM POSSIBLE LEFT ATRIAL ENLARGEMENT CANNOT RULE OUT ANTERIOR INFARCT , AGE UNDETERMINED ABNORMAL ECG NO PREVIOUS ECGS AVAILABLE Confirmed by MIKE CHARLTON MD ([id number]) on 03/19/2017 4:46:35 PM Referred By: AM Confirmed By:MIKE CHARLTON MD
[2017-03-20 00:07] LABS: A/G RATIO 0.7 (0.7-1.7); ALBUMIN 2.9 g/dL (2.9-4.4); GLOBULIN, TOTAL 4.3 g/dL (2.2-3.9); M-SPIKE Not Observed g/dL (Not Observed); TOTAL PROTEIN 7.2 g/dL (6.0-8.5)
== END 2017-03-19 14:07 | disposition home or self-care (01) | DRG 812 ==
LOC: JER 13:35 → JERBED 17:35 → J8W 21:10
PROVIDERS: ADMIT Internal Medicine; ATTEND Internal Medicine
PROC: 30233H1 Transfusion of Nonautologous Whole Blood into Peripheral Vein, Percutaneous Approach (ICD-10-PCS; principal; 2017-03-17)
DX: D50.9 Iron deficiency anemia, unspecified (principal); N17.9 Acute kidney failure, unspecified; J98.11 Atelectasis; E05.90 Thyrotoxicosis, unspecified without thyrotoxic crisis or storm; E04.1 Nontoxic single thyroid nodule; Z87.891 Personal history of nicotine dependence; J44.9 Chronic obstructive pulmonary disease, unspecified; E89.0 Postprocedural hypothyroidism; N85.8 Other specified noninflammatory disorders of uterus; N83.202 Unspecified ovarian cyst, left side
CPT/HCPCS: 36415; 36430; 71020-TC; 71250-TC; 74176-TC; 80048; 80053; 80061; 81003; 81015; 82105; 82272; 82378; 82607; 82728; 82746; 83010; 83540; 83550; 83721; 83735; 83880; 84155; 84165; 84439; 84443; 84481; 85025; 85044; 85610; 85651; 85730; 86038; 86304; 86376; 86800; 86850; 86900; 86901; 86922; 87086; 87186; 93005; 93010; 93306-TC; 94010; 99283-25; J1756; P9038; P9058; Q9967

== ENCOUNTER → 2017-04-10 | Day surgery (SDC) | payer OTHER, BC ==
--- NOTE | 2017-04-11 15:59 | PATH ---
Cytology Non-Gynecological Report Patient Name: PATRICIA ROJAS [facility]. Rec. #: [id number] /Age/Gender: 1940 (Age: 77) / F Account: [id number] Location: RADIOLOGY Taken: 04/10/2017 Received: 04/10/2017 Reported: 04/11/2017 Physicians: Roberto Whitaker M.D. Specimen(s) Received RIGHT THYROID FNA Clinical History Right thyroid nodule, 4.5 x 2.7 x 4 cm Final Diagnosis THYROID GLAND, RIGHT LOBE, US GUIDED FINE NEEDLE ASPIRATION BIOPSY: SATISFACTORY FOR EVALUATION. NO MALIGNANT CELLS IDENTIFIED. CONSISTENT WITH NODULAR GOITER WITH CYSTIC CHANGE (BENIGN FOLLICULAR NODULE, BETHESDA CATEGORY II, BENIGN), SEE COMMENT. Comment: The smears and the cell block show clusters of bland appearing follicular epithelial cells with many cells demonstrating Hurthle cell (oncocytic) change. Numerous macrophages are present, indicative for cystic change. Few lymphocytes are seen in the background suggestive of background lymphocytic thyroiditis. Abundant colloid is present. Electronically Signed Wyatt Del Toro M.D. Gross Description Received are four air dried smears, four smears in 95% alcohol, and 20 cc of bloody fluid in formalin. Four diff-quik stained slides, four Pap stained slides and one cell block are made.
== END | disposition home or self-care (01) ==
LOC: JRADIR 07:56
PROVIDERS: ATTEND Internal Medicine
PROC: 0G9H3ZX Drainage of Right Thyroid Gland Lobe, Percutaneous Approach, Diagnostic (ICD-10-PCS; principal; 2017-04-10)
PROC: BG44ZZZ Ultrasonography of Thyroid Gland (ICD-10-PCS; 2017-04-10)
DX: E04.1 Nontoxic single thyroid nodule (principal)
CPT/HCPCS: 76942; 88173; 88305-TC

== ENCOUNTER 2017-04-21 12:39 | Inpatient (IN) | payer OTHER, BC ==
--- NOTE | 2017-04-21 12:45 | PDOC ---
History of Present Illness <Eddie Wong - Last Filed: 04/21/17 15:07> - General History Source: Patient Exam Limitations: No Limitations - History of Present Illness Initial Comments: 04/21/17 14:00 77 y/o F with a PMHx of hyperthyroidism, atelectasis of bilateral lungs, acute kidney injury presents to the ED via EMS dizziness and weakness. At PCPs office 3 and a half weeks ago, her Hgb was found to be 5, so she was transferred to a hospital and transfused two units. She was stabilized and felt better. She then received an upper and lower endoscopy outpatient 4 days ago. Since then, she has experienced multiple episodes of hematemesis and hematochezia. Today, she woke up and was so dizzy she could not stand up. She reports associated nausea. Her doctor told her they found a mass on endoscopy, which may be colon cancer. <Breanna Pratt - Last Filed: 04/21/17 17:23> - General Chief Complaint: Lightheaded Stated Complaint: DIZZY Time Seen by Provider: 04/21/17 12:44 Past History - Past Medical History Anemia: Yes Asthma: No Cancer: No Cardiac Disorders: No CVA: No COPD: No (ATELECTASIS OF BOTH LUNGS) CHF: No Dementia: No Diabetes: No GI Disorders: No Disorders: (ACUTE KIDNEY INJURY) HTN: No Hypercholesterolemia: No Liver Disease: No Seizures: No Thyroid Disease: Yes (HYPERTHYROIDISM) - Surgical History Abdominal Surgery: No Appendectomy: No Cardiac Surgery: No Cholecystectomy: No Lung Surgery: No Neurologic Surgery: No Orthopedic Surgery: No - Suicide/Smoking/Psychosocial Hx Smoking History: Former smoker Have you smoked in the past 12 months: No If you are a former smoker, when did you quit?: 30 YEARS AGO Hx Alcohol Use: No Drug/Substance Use Hx: No Substance Use Type: None Hx Substance Use Treatment: No <Eddie Wong - Last Filed: 04/21/17 15:07> <Breanna Pratt - Last Filed: 04/21/17 17:23> - Past Medical History Allergies/Adverse Reactions: Allergies Allergy/AdvReac Type Severity Reaction Status Date / Time No Known Allergies Allergy Verified 04/21/17 13:00 Home Medications: Ambulatory Orders Ferrous Sulfate [Feosol] 325 mg PO DAILY #30 tab 03/19/17 Levothyroxine [Synthroid -] 25 mcg PO DAILY@0700 #30 tablet 03/19/17 Review of Systems - Review of Systems Able to Perform ROS?: Yes Comments:: 04/21/17 14:00 GENERAL/CONSTITUTIONAL: (+) weakness. No fever or chills. HEAD, EYES, EARS, NOSE AND THROAT: No change in vision. No ear pain or discharge. No sore throat. CARDIOVASCULAR: No chest pain or shortness of breath. RESPIRATORY: No cough, wheezing, or hemoptysis. GASTROINTESTINAL: (+) nausea, vomiting, hematemesis, hematochezia. No diarrhea or constipation. GENITOURINARY: No dysuria, frequency, or change in urination. MUSCULOSKELETAL: No joint or muscle swelling or pain. No neck or back pain. SKIN: No rash NEUROLOGIC: (+) dizziness. No headache, loss of consciousness, or change in strength/sensation. ENDOCRINE: No increased thirst. No abnormal weight change. HEMATOLOGIC/LYMPHATIC: No anemia, easy bleeding, or history of blood clots. ALLERGIC/IMMUNOLOGIC: No hives or skin allergy. <Breanna Pratt - Last Filed: 04/21/17 17:23> *Physical Exam - Vital Signs Last Vital Signs Temp Pulse Resp BP Pulse Ox 97.7 F 78 17 100/51 98 04/21/17 12:57 04/21/17 13:42 04/21/17 13:42 04/21/17 13:42 04/21/17 13:42 - Physical Exam Comments: 04/21/17 14:00 GENERAL: Awake, alert, and fully oriented, in no acute distress. Pale, frail. HEAD: No signs of trauma EYES: PERRLA, EOMI, sclera anicteric, conjunctiva clear ENT: Auricles normal inspection, hearing grossly normal, nares patent, oropharynx clear without exudates. Moist mucosa NECK: Normal ROM, supple, no lymphadenopathy, JVD, or masses LUNGS: Breath sounds equal, clear to auscultation bilaterally. No wheezes, and no crackles HEART: Regular rate and rhythm, normal S1 and S2, no murmurs, rubs or gallops ABDOMEN: Soft, nontender, normoactive bowel sounds. No guarding, no rebound. No masses EXTREMITIES: Normal range of motion, no edema. No clubbing or cyanosis. No cords, erythema, or tenderness NEUROLOGICAL: Cranial nerves II through XII grossly intact. Normal speech, normal gait SKIN: Warm, Dry, normal turgor, no rashes or lesions noted. <SantaBreanna Danielle - Last Filed: 04/21/17 17:23> Heart Score/ECG Review #1 04/21/17 15:23 NSR at 69 bpm. <Nigel Prattobhan Danielle - Last Filed: 04/21/17 17:23> ED Treatment Course - LABORATORY CBC & Chemistry Diagram: 04/21/17 13:00 04/21/17 13:20 <Eddie Wong - Last Filed: 04/21/17 15:07> - LABORATORY CBC & Chemistry Diagram: 04/21/17 13:00 04/21/17 13:20 - ADDITIONAL ORDERS Additional order review: Laboratory Results 04/21/17 13:00 PT with INR 13.20 H INR 1.20 H PTT (Actin FS) 24.7 L 04/21/17 13:00 RBC 2.14 L D MCV 76.6 L MCHC 31.2 L RDW 30.7 H MPV 7.1 L D Neutrophils % 84.9 H Lymphocytes % 6.2 L Monocytes % 8.5 Eosinophils % 0.1 D Basophils % 0.3 - RADIOLOGY Radiograph Interpretation: 04/21/17 16:36 Chest X-Ray Reported by Dr. Nicolás Lehman Impression: No significant interval change or acute lung disease is present. 04/21/17 17:19 Abdomen & Pelvis CT Reported by Dr. Sony Cardoza Impression: COncentric wall thickening is noted involving the ascending colon with associated mild pericolonic soft tissue stranding. Given the lack of interval change in comparison to a previous CT study of 03/18/17 neoplastic disease is probably more likely. As on the prior study there are several mildly enlarged adjacent right lower quadrant mesenteric lymph nodes. The remainder of the study also appears unchanged. Nonspecific 6 cm left adnexal cyst - ? cystadenoma/cystadenocarcinoma. Hepatic cirrhosis. Mild splenomegaly. Small hiatal hernia. Cholelithiasis. Unchanged bilateral pathcy lower lung field opacities consistent with chronic atelectasis/scarring. - Medications Given in the ED: ED Medications Discontinued Medications Generic Name Dose Route Start Last Admin Trade Name Freq PRN Reason Stop Dose Admin Famotidine/Sodium Chloride 50 mls @ 100 mls/hr 04/21/17 13:02 04/21/17 13:22 Pepcid 20 Mg Premixed Ivpb - IVPB 04/21/17 13:31 100 mls/hr ONCE ONE Administration Sodium Chloride 1,000 mls @ 1,000 mls/hr 04/21/17 13:00 04/21/17 13:22 Normal Saline - IV 04/21/17 13:59 1,000 mls/hr ASDIR STA Administration Ondansetron HCl 4 mg 04/21/17 13:02 04/21/17 13:22 Zofran Injection IVPUSH 04/21/17 13:03 4 mg ONCE ONE Administration <Breanna Pratt - Last Filed: 04/21/17 17:23> *DC/Admit/Observation/Transfer - Discharge Dispostion Admit: Yes - Attestations Physician Attestion: 04/21/17 12:44 I, Dr. Eddie Wong, attest that this document has been prepared under my direction and personally reviewed by me in its entirety. I further attest, that it accurately reflects all work, treatment, procedures and medical decision -making performed by me. <Eddie Wong - Last Filed: 04/21/17 15:07> - Attestations Scribe Attestion: 04/21/17 14:00 Documentation prepared by Breanna Pratt, acting as clinical medical assistant for Eddie Wong DO. <Breanna Pratt - Last Filed: 04/21/17 17:23> Diagnosis at time of Disposition: Acute blood loss anemia GIB (gastrointestinal bleeding) Qualifiers: GI bleed type/associated pathology: unspecified gastrointestinal hemorrhage type Qualified Code(s): K92.2 - Gastrointestinal hemorrhage, unspecified - Discharge Dispostion Condition at time of disposition: Improved - Referrals
[2017-04-21 13:00] VITALS: BMI 24.5
[2017-04-21] MEDS ORDERED: SODIUM CHLORIDE 1,000 ML IV STA (13:00)
[2017-04-21] MEDS ORDERED: ONDANSETRON 4 MG/2 ML VIAL IVPUSH ONE (13:02)
[2017-04-21] MEDS ORDERED: FAMOTIDINE 20 MG/50 ML IVPB 50 ML IVPB ONE ×2 (13:02→13:09)
[2017-04-21] MEDS ORDERED: ONDANSETRON 4 MG/2 ML VIAL ONE (13:09)
[2017-04-21 13:25] LABS: BASOPHIL 0.3 % (0-2.0); EOSINOPHIL 0.1 % (0-4.5); MCH 23.9 pg (25.7-33.7); MCHC 31.2 g/dl (32.0-36.0); MEAN CELL VOLUME 76.6 fl (80-96); MEAN PLT VOLUME 7.1 fl (7.5-11.1); NEUTROPHILS 84.9 % (42.8-82.8); PLATELET COUNT 220 K/MM3 (134-434); RDW 30.7 % (11.6-15.6); WHITE BLOOD COUNT 11.4 K/mm3 (4.0-10.0)
[2017-04-21 13:44] LABS: INR 1.2 (0.82-1.09); PROTHROMBIN TIME (PATIENT) 13.2 SEC (9.98-11.88)
[2017-04-21 13:47] LABS: ACTIVATED PTT 24.7 SECONDS (26.9-34.4)
[2017-04-21 13:59] LABS: ALBUMIN 2.1 g/dl (3.4-5.0); ANION GAP 11 (8-16); CALCIUM 7.3 mg/dL (8.5-10.1); CO2 21 mmol/L (21-32)
[2017-04-21 14:05] LABS: ALK PHOS 171 U/L (45-117); BILIRUBIN,TOTAL 0.3 mg/dL (0.2-1.0); CPK 31 IU/L (26-192); CREATININE 1.5 mg/dL (0.55-1.02); LDH 153 U/L (84-246); SGOT/AST 20 U/L (15-37); SGPT/ALT 18 U/L (12-78); TOT PROT 5.6 g/dl (6.4-8.2); TROPONIN I 0.02 ng/ml (0.00-0.05)
[2017-04-21 14:07] LABS: GLUCOSE,RANDOM 118 mg/dL (74-106)
[2017-04-21 14:14] LABS: ANISOCYTOSIS 2+; HYPOCHROMIA 2+; PLATELET ESTIMATE ADEQUATE (NORMAL)
--- NOTE | 2017-04-21 14:29 | HP ---
Admitting History and Physical - Primary Care Physician PCP: Sayda Segura S - Admission Chief Complaint: dizziness History of Present Illness: 77 y/o F with a PMHx of hyperthyroidism, atelectasis of bilateral lungs, acute kidney injury presents to the ED via EMS dizziness and weakness. At PCPs office 3 and a half weeks ago, her Hgb was found to be 5, so she was transferred to a hospital and transfused two units. She was stabilized and felt better. She then received an upper and lower endoscopy outpatient 4 days ago. Since then, she has experienced multiple episodes of hematemesis and hematochezia. Today, she woke up and was so dizzy she could not stand up. She reports associated nausea. Her doctor told her they found a mass on endoscopy, which may be colon cancer. History Source: Patient, Family Member, Medical Record Limitations to Obtaining History: No Limitations - Past Medical History Pulmonary: Yes: Other Gastrointestinal: Yes: Constipation Heme/Onc: Yes: Anemia Endocrine: Yes: Hyperthyroidism - Past Surgical History Past Surgical History: Yes: - Smoking History Smoking history: Former smoker Have you smoked in the past 12 months: No If you are a former smoker, when did you quit?: 30 YEARS AGO - Alcohol/Substance Use Hx Alcohol Use: No History of Substance Use: reports: None - Social History Usual Living Arrangement: Yes: With Child ADL: Independent History of Recent Travel: No Home Medications - Allergies Allergies/Adverse Reactions: Allergies Allergy/AdvReac Type Severity Reaction Status Date / Time No Known Allergies Allergy Verified 04/21/17 13:00 - Home Medications Home Medications: Ambulatory Orders Ferrous Sulfate [Feosol] 325 mg PO DAILY #30 tab 03/19/17 Levothyroxine [Synthroid -] 25 mcg PO DAILY@0700 #30 tablet 03/19/17 Family Disease History - Family Disease History Family Disease History: Other: Daughter (lupus) Review of Systems - Review of Systems Constitutional: denies: Chills, Fever Eyes: denies: Blind Spots, Blurred Vision HENT: denies: Ear Pain, Epistaxis Neck: denies: Pain on Movement, Tenderness Cardiovascular: denies: Chest Pain, Shortness of Breath Respiratory: denies: Cough, Hemoptysis, SOB Gastrointestinal: reports: Rectal Bleeding, Vomiting Blood. denies: Abdominal Pain, Bloating, Constipation, Diarrhea Genitourinary: denies: Discharge, Dysuria, Flank Pain Musculoskeletal: denies: Back Pain, Extremity Pain Integumentary: denies: Pruritis, Rash Neurological: denies: Confusion, Unsteady Gait Hematology/Lymphatic: denies: Easily Bruised, Excessive Bleeding Psychiatric: denies: Altered Sleep Pattern, Anxiety, Depression Physical Examination Vital Signs: Vital Signs Temperature 97.7 F 04/21/17 12:57 Pulse Rate 78 04/21/17 13:42 Respiratory Rate 17 04/21/17 13:42 Blood Pressure 100/51 04/21/17 13:42 O2 Sat by Pulse Oximetry (%) 98 04/21/17 13:42 Constitutional: Yes: No Distress, Calm Eyes: Yes: Conjunctiva Clear HENT: Yes: Atraumatic Neck: Yes: Supple Cardiovascular: Yes: Regular Rate and Rhythm Respiratory: Yes: CTA Bilaterally Gastrointestinal: Yes: Soft. No: Distention, Tenderness Renal/: No: CVA Tenderness - Left, CVA Tenderness - Right Musculoskeletal: No: Joint Stiffness, Joint Swelling Extremities: No: Cold, Cool, Cyanosis Edema: No Integumentary: No: Rash, Venous Stasis Changes Neurological: Yes: WNL, Alert, Oriented ...Motor Strength: WNL Psychiatric: Yes: WNL, Alert, Oriented. No: Agitated, Suicidal Ideation Labs: CBC, BMP 04/21/17 13:00 04/21/17 13:20 Imaging - Results Chest X-ray: Report Reviewed Other: Report Reviewed Assessment/Plan 77 y/o F with a PMHx of hyperthyroidism, atelectasis of bilateral lungs, acute kidney injury presents to the ED via EMS dizziness and weakness. At PCPs office 3 and a half weeks ago, her Hgb was found to be 5, so she was transferred to a hospital and transfused two units. She was stabilized and felt better. She then received an upper and lower endoscopy outpatient 4 days ago. Since then, she has experienced multiple episodes of hematemesis and hematochezia. Today, she woke up and was so dizzy she could not stand up. She reports associated nausea. Her doctor told her they found a mass on endoscopy, which may be colon cancer. admit to telemetry cardiac and GI eval check pathology d/w pt and daughter at bedside surgical eval dr Torres transfuse to Hg 8-9 falls PFX d/w Gi dr Willard
[2017-04-21 14:35] LABS: THYROID STIMULATING HORMONE 3.37 uIU/ml (0.358-3.74)
[2017-04-21] MEDS ORDERED: PANTOPRAZOLE SODIUM 80 MG in SODIUM CHLORIDE 100 ML IVPB SCH (16:15)
--- NOTE | 2017-04-21 16:34 | EKG ---
Test Reason : Blood Pressure : / mmHG Vent. Rate : 069 BPM Atrial Rate : 069 BPM P-R Int : 154 ms QRS Dur : 074 ms QT Int : 452 ms P-R-T Axes : 043 -10 036 degrees QTc Int : 484 ms NORMAL SINUS RHYTHM CANNOT RULE OUT ANTERIOR INFARCT (CITED ON OR BEFORE 17-MAR-2017) ABNORMAL ECG WHEN COMPARED WITH ECG OF 17-MAR-2017 17:37, T WAVE VARIATION Confirmed by AMERICO FIGUEROA, ARTURO ([id number]) on 04/21/2017 4:33:42 PM Referred By: Confirmed By:ARTURO DRISCOLL MD
[2017-04-21] MEDS ORDERED: PANTOPRAZOLE SODIUM 40 MG VIAL ONE (16:44)
--- NOTE | 2017-04-21 16:47 | CON.GI ---
Consult Consult Specialty:: GASTROENTEROLOGY - History of Present Illness Chief Complaint: VOMITING, HEMATEMESIS,HEMATOCHEZIA History of Present Illness: 77 YEAR OLD FEMALEL WHO HAS A HISTORY OF IRON DEFICIENCY ANEMIA AND WAS SEEN INPATIENT FOR SAME LAST MONTH. SHE WAS FOUND TO HAVE A THICKENED ASCENDING COLON READ A COLITIS. SHE HAD ENDOSCOPY AND COLONOSCOPY ON FRIDAY. WE HAD OFFER HER EARLIER INPATIENT PROCEDURES WITH MY PARTNER BUT SHE REFUSED. THE REPORTS ARE IN THE COMPUTER. ON UPPER ENDOSCOPY SHE WAS FOUND TO HAVE SEVERE ESOPHAGITIS AND ABNORMAL DISTAL ESOPHAGEAL TISSUE POSSIBLY IN THE FACE OF LONGSTANDING REFLUX/SEXTON'S. BIOPSY WERE TAKEN TO RULE OUT MALIGNANCY. IN THE COLON SHE HAD A FRIABLE MASS IN THE DISTAL ASCENDING COLON/ HEPATIC FLEXURE THAT WAS LARGE. I WAS NOT ABLE TO PASS INTO THE PROXIMAL ASCENDING COLO. BIOPSIES WERE OBTAINED. SHE HAS BEEN ON PRILOSEC SINCE FRIDAY. SHE WAS DOING WELL ALL WEEKEND. YESTERDAY HER DAUGHTER SAID SHE LOOKED WEAK. THE PATIENT THIS MORNING HAD DIZZINESS AND VOMITED DARK MATERIAL WITH A LITTLE BLOOD. SHE ALSO HAD MILD HEMATOCHEZIA. IN THE ED SHE WAS FOUND TO HAVE A HGB OF 5 AND IS NOW ADMITTED. 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's, CVA, Dementia, Migraine, Multiple Sclerosis, Peripheral Neuropathy, Parkinson's, Seizure, Syncope, TIA, Vertigo, Other Cardio/Vascular: No: AFIB, Aneurysm, Aortic Insufficiency, Aortic Stenosis, CAD , CHF, Deep Vein Thrombosis, HTN, Hyperlipdemia, WI, Mitral Insufficiency, Mitral Stenosis, Murmur, Pulmonary Hypertension, Other Pulmonary: Yes: Other Gastrointestinal: Yes: Constipation Hepatobiliary: No: Cirrhosis, Cholelithiasis, Cholecystitis, Choledocholithiasis , Hepatitis A, Hepatitis B, Hepatitis C, Other Renal/: No: Renal Failure, Renal Inusuff, BPH, Cancer, Hematuria, Hemodialysis , Neurogenic Bladder, Renal Calculi, UTI, Other Reproductive: No: Ectopic , Endometriosis, Fibroids, PID, Polycystic Ovary Syndrome, Postmenopausal, Other Heme/Onc: Yes: Anemia Infectious Disease: No: AIDS, C-Diff, Herpes Zoster, HIV, MRSA, STD's, Tuberculosis, VREF, Other Psych: No: Addictions, Anxiety, Bipolar, Depression, Panic, Psychosis, Schizophrenia, Other Musculoskeletal: No: Bursitis, Chronic low back pain, Hemiparesis, Hemiplegia, Osteoarthritis, Paraplegia, Other Rheumatology: No: Fibromyalgia, Gout, Lupus, Rheumatoid Arthritis, Sarcoidosis, Vasculitis, Other Endocrine: Yes: Hyperthyroidism Dermatology: No: Basal Cell, Cellulitis, Eczema, Melanoma, Psoriasis, Squamous Cell, Other - Past Surgical History Past Surgical History: Yes: Colonoscopy, , Upper Endoscopy - Alcohol/Substance Use Hx Alcohol Use: No History of Substance Use: reports: None - Smoking History Smoking history: Former smoker Have you smoked in the past 12 months: No If you are a former smoker, when did you quit?: 30 YEARS AGO - Social History Usual Living Arrangement: Alone ADL: Independent History of Recent Travel: No Home Medications - Allergies Allergies/Adverse Reactions: Allergies Allergy/AdvReac Type Severity Reaction Status Date / Time No Known Allergies Allergy Verified 04/21/17 13:00 - Home Medications Home Medications: Ambulatory Orders Ferrous Sulfate [Feosol] 325 mg PO DAILY #30 tab 03/19/17 Levothyroxine [Synthroid -] 25 mcg PO DAILY@0700 #30 tablet 03/19/17 Family Disease History - Family Disease History Family Disease History: Other: Son, Daughter Review of Systems - Review of Systems Constitutional: reports: Weakness Eyes: reports: No Symptoms HENT: reports: No Symptoms Neck: reports: No Symptoms Cardiovascular: reports: No Symptoms Respiratory: reports: No Symptoms Gastrointestinal: reports: Nausea, Rectal Bleeding, Vomiting Genitourinary: denies: No Symptoms, Burning, Discharge, Dysuria, Flank Pain, Frequency, Hematuria, Incontinence, Lesions, Menses, Pain, Testicular Mass, Testicular Pain, Testicular Swelling, Urgency, Vaginal Bleeding, Other Breasts: denies: No Symptoms Reported, See HPI, Breast Implants, Discharge from Nipple, Lumps, Pain, Skin Changes, Other Musculoskeletal: denies: No Symptoms, Back Pain, Crepitus, Decreased ROM, Extremity Pain, Joint Pain, Joint Swelling, Muscle Pain, Muscle Cramps, Muscle Weakness, Other Integumentary: denies: No Symptoms, Blister, Bruising, Change in Color, Eczema, Erythema, Incision, Lesions, Lump, Pallor, Pruritis, Rash, Wound, Other Neurological: reports: Dizziness Physical Exam-GI Vital Signs: Vital Signs Temperature 97.6 F 04/21/17 15:15 Pulse Rate 73 04/21/17 16:24 Respiratory Rate 18 04/21/17 16:24 Blood Pressure 130/54 04/21/17 16:24 O2 Sat by Pulse Oximetry (%) 100 04/21/17 16:24 Constitutional: Yes: No Distress, Calm Eyes: Yes: Conjunctiva Clear HENT: Yes: Normocephalic Neck: Yes: Supple Cardiovascular: Yes: Regular Rate and Rhythm Respiratory: Yes: Regular Gastrointestinal Inspection: Yes: WNL ...Auscultate: Yes: Normoactive Bowel Sounds ...Palpate: Yes: Soft Musculoskeletal: Yes: WNL Extremities: Yes: WNL Neurological: Yes: Alert, Oriented, Other (NON FOCAL) Psychiatric: Yes: Alert, Oriented Labs: INR, PTT INR 1.20 (0.82-1.09) H 04/21/17 13:00 Laboratory Tests 04/21/17 04/21/17 04/21/17 13:00 13:00 13:20 WBC 11.4 H D RBC 2.14 L D Hgb 5.1 L* D Hct 16.4 L D MCV 76.6 L MCH 23.9 L MCHC 31.2 L RDW 30.7 H Plt Count 220 D MPV 7.1 L D Neutrophils % 84.9 H Lymphocytes % 6.2 L Monocytes % 8.5 Eosinophils % 0.1 D Basophils % 0.3 Hypochromia 2+ Platelet Estimate Adequate Anisocytosis 2+ PT with INR 13.20 H INR 1.20 H PTT (Actin FS) 24.7 L Sodium 139 Potassium 4.0 Chloride 107 Carbon Dioxide 21 D Anion Gap 11 BUN 47 H D Creatinine 1.5 H Creat Clearance w eGFR 33.67 Random Glucose 118 H D Calcium 7.3 L Total Bilirubin 0.3 AST 20 D ALT 18 D Alkaline Phosphatase 171 H D LD Total 153 Creatine Kinase 31 Troponin I 0.02 Total Protein 5.6 L D Albumin 2.1 L D TSH 3.37 D Imaging - Results Cat Scan: Pending Problem List - Problems (1) Hematemesis with nausea Assessment/Plan: PROBLABLY BLEEDING FROM ESOPHAGITIS AND BIOPSY. BLEEDING SUGGESTS SEVERE INFLAMMATION AND/OR DYSPLASIA(MALIGNANCY). TRANSFUSE TO HGB OF 9 OR BETTER. NPO , AWAIT BIOPSIES WHICH SHOULD BE BY TOMORROW. I HAVE PLACED CALL TO PATHOLOGY. UNOFFCIALLY THE NEW CT SCAN FROM TODAY SHOWS THE LARGE COLONIC MASS IN THE HEPATIC AND ASCENDING COLON. PATIENT NEEDS TO BE SEEN BY A SURGEON DURING THIS HOSPITALIZATION. DR AGUILERA HAS SUGGESTED DR CUENCA. I WILL PLACE A CONSULT REQUEST INTO HIM. I WILL SEND A CEA OFF TODAY. COLON BIOPSIES SHOULD BE READY BY TOMORROW OR THE NEXT DAY. IF EGD IS NEEDED I WILL REPEAT THAT THIS WEEK. DAVIE HARVEY MD Code(s): K92.0 - HEMATEMESIS R11.0 - NAUSEA (2) Acute blood loss anemia Code(s): D62 - ACUTE POSTHEMORRHAGIC ANEMIA (3) Iron deficiency anemia Code(s): D50.9 - IRON DEFICIENCY ANEMIA, UNSPECIFIED (4) Colon neoplasm Code(s): D49.0 - NEOPLASM OF UNSPECIFIED BEHAVIOR OF DIGESTIVE SYSTEM (5) Esophagitis Code(s): K20.9 - ESOPHAGITIS, UNSPECIFIED (6) Hypothyroidism Code(s): E03.9 - HYPOTHYROIDISM, UNSPECIFIED Qualifiers: Hypothyroidism type: unspecified Qualified Code(s): E03.9 - Hypothyroidism, unspecified
[2017-04-21] MEDS: PANTOPRAZOLE SODIUM 80 MG in SODIUM CHLORIDE 100 ML IVPB SCH (19:30)
[2017-04-22] MEDS: PANTOPRAZOLE SODIUM 80 MG in SODIUM CHLORIDE 100 ML IVPB SCH ×2 (04:00→15:02)
[2017-04-22] MEDS: LEVOTHYROXINE NA 25 MCG TABLET (FP) PO SCH (06:21)
[2017-04-22 07:56] LABS: BASOPHIL 0.5 % (0-2.0); EOSINOPHIL 0.5 % (0-4.5); MCH 26.9 pg (25.7-33.7); MCHC 32.9 g/dl (32.0-36.0); MEAN CELL VOLUME 81.8 fl (80-96); MEAN PLT VOLUME 8.5 fl (7.5-11.1); NEUTROPHILS 82.7 % (42.8-82.8); PLATELET COUNT 178 K/MM3 (134-434); RDW 26.7 % (11.6-15.6)
[2017-04-22 08:04] LABS: WHITE BLOOD COUNT 10.7 K/mm3 (4.0-10.0)
[2017-04-22 08:17] LABS: ALBUMIN 2.1 g/dl (3.4-5.0); ALK PHOS 144 U/L (45-117); ANION GAP 7 (8-16); BILIRUBIN,TOTAL 0.6 mg/dL (0.2-1.0); CALCIUM 7.2 mg/dL (8.5-10.1); CO2 22 mmol/L (21-32); CREATININE 1.3 mg/dL (0.55-1.02); GLUCOSE,RANDOM 84 mg/dL (74-106); SGOT/AST 22 U/L (15-37); SGPT/ALT 16 U/L (12-78); TOT PROT 5.7 g/dl (6.4-8.2)
[2017-04-22] MEDS ORDERED: PANTOPRAZOLE SODIUM 40 MG in SODIUM CHLORIDE 100 ML IVPB SCH (10:00)
[2017-04-22] MEDS ORDERED: PEG3350/SOD SULF,BICARB,CL/KCL 4,000 ML SOLN.RECON PO ONE (10:30)
--- NOTE | 2017-04-22 10:30 | PN ---
Progress Note, Physician Chief Complaint: in bed NAD afebrile VSS no new c/o; no CP/SOB, no cough/dysuria s/p 2 U PRBC Hg 7.6; will order 2 more units PRBC all consults reviewed and d/w pt and daughter at bedside - Current Medication List Current Medications: Active Medications Ferrous Sulfate (Feosol -) 325 mg PO DAILY [facility] Pantoprazole Sodium 80 mg/ (Sodium Chloride) 100 mls @ 10 mls/hr IVPB Q10H KARL PRN Reason: 8 MG/HR Last Admin: 04/22/17 04:00 Dose: 10 mls/hr Levothyroxine Sodium (Synthroid -) 25 mcg PO DAILY@0700 KARL Last Admin: 04/22/17 06:21 Dose: 25 mcg - Objective Vital Signs: Vital Signs Temperature 99.1 F 04/22/17 06:00 Pulse Rate 74 04/22/17 06:00 Respiratory Rate 20 04/22/17 06:00 Blood Pressure 113/50 04/22/17 06:00 O2 Sat by Pulse Oximetry (%) 103 H 04/21/17 21:00 Constitutional: Yes: No Distress, Calm Eyes: Yes: Conjunctiva Clear HENT: Yes: Atraumatic Neck: Yes: Supple Cardiovascular: Yes: Regular Rate and Rhythm Respiratory: Yes: CTA Bilaterally Gastrointestinal: Yes: Soft. No: Distention, Tenderness Genitourinary: No: CVA Tenderness - Left, CVA Tenderness - Right Musculoskeletal: No: Joint Stiffness, Joint Swelling Extremities: No: Cold, Cool, Cyanosis Edema: No Integumentary: No: Rash, Venous Stasis Changes Neurological: Yes: WNL, Alert, Oriented ...Motor Strength: WNL Psychiatric: Yes: WNL, Alert, Oriented. No: Agitated, Suicidal Ideation Labs: CBC, BMP 04/22/17 05:35 04/22/17 05:35 INR, PTT INR 1.20 (0.82-1.09) H 04/21/17 13:00 - ....Imaging Other: Report Reviewed Assessment/Plan 77 y/o F with a PMHx of hyperthyroidism, atelectasis of bilateral lungs, acute kidney injury presents to the ED via EMS dizziness and weakness. Severe anemia GI bleed, colonic mass possible colon CA admitted to telemetry; consults appreciated transfuse to Hg 8-9 cardiac and GI eval check pathology surgical eval - d/w dr Torres - for tumor excision in am; also d/w [employer] dr Hanna to eval for ovarian mass/cyst found on abdomen pelvic CT falls PFX d/w pt and daughter NO ABSOLUTE CONTRAINDICATIONS FOR THE PROPOSED SURGERY
[2017-04-22] MEDS: FERROUS SO4 325 MG TABLET (FP) PO SCH (12:24)
--- NOTE | 2017-04-22 12:41 | CONSULT ---
Consultation: REQUESTING PROVIDER: CONSULT REQUEST: We have been asked to medically evaluate this patient for pre- operative risk assessment. HISTORY OF PRESENT ILLNESS: 77F with PMH hyperthyroidism, atelectasis of bilateral lungs, acute kidney injury who presented to ED with weakness and dizziness. Pt was admitted for severe anemia. Pt had Abd CT which revealed possible colon CA as well as cystic pelvic mass. Pt is to go for abdominal surgery tomorrow. REVIEW OF SYSTEMS: CONSTITUTIONAL: generalized weakness Absent: fever, chills, diaphoresis, , malaise, loss of appetite, weight change HEENT: Absent: rhinorrhea, nasal congestion, throat pain, throat swelling, difficulty swallowing, mouth swelling, ear pain, eye pain, visual changes CARDIOVASCULAR: Absent: chest pain, syncope, palpitations, irregular heart rate, lightheadedness , peripheral edema RESPIRATORY: Absent: cough, shortness of breath, dyspnea with exertion, orthopnea, wheezing, stridor, hemoptysis GASTROINTESTINAL: Absent: abdominal pain, abdominal distension, nausea, vomiting, diarrhea, constipation, melena, hematochezia GENITOURINARY: Absent: dysuria, frequency, urgency, hesitancy, hematuria, flank pain, genital pain MUSCULOSKELETAL: Absent: myalgia, arthralgia, joint swelling, back pain, neck pain SKIN: Absent: rash, itching, pallor HEMATOLOGIC/IMMUNOLOGIC: Absent: easy bleeding, easy bruising, lymphadenopathy, frequent infections ENDOCRINE: Absent: unexplained weight gain, unexplained weight loss, heat intolerance, cold intolerance NEUROLOGIC: Absent: headache, focal weakness or paresthesias, dizziness, unsteady gait, seizure, mental status changes, bladder or bowel incontinence PSYCHIATRIC: Absent: anxiety, depression, suicidal or homicidal ideation, hallucinations. PHYSICAL EXAMINATION Vital Signs - 24 hr 04/21/17 04/21/17 04/21/17 15:15 16:24 17:30 Temperature 97.6 F Pulse Rate Pulse Rate [ 73 73 72 Apical] Respiratory 18 17 Rate Blood Pressure Blood Pressure 102/44 130/54 100/58 [Left Arm] O2 Sat by Pulse 100 98 Oximetry (%) 04/21/17 04/21/17 04/21/17 18:00 21:00 22:00 Temperature 98.0 F 99.1 F Pulse Rate 80 84 Pulse Rate [ Apical] Respiratory 18 20 Rate Blood Pressure 125/55 118/62 Blood Pressure [Left Arm] O2 Sat by Pulse 103 H Oximetry (%) 04/22/17 04/22/17 04/22/17 02:10 06:00 09:00 Temperature 99.6 F 99.1 F 98.8 F Pulse Rate 85 74 79 Pulse Rate [ Apical] Respiratory 18 20 18 Rate Blood Pressure 133/58 113/50 121/61 Blood Pressure [Left Arm] O2 Sat by Pulse Oximetry (%) GENERAL: Awake, alert, and fully oriented, in no acute distress. HEAD: Normal with no signs of trauma. NECK: Normal range of motion, supple without lymphadenopathy, JVD, or masses. LUNGS: Breath sounds equal, clear to auscultation bilaterally. No wheezes, and no crackles. No accessory muscle use. HEART: Regular rate and rhythm, normal S1 and S2 with soft 2/6 systolic ejection murmur at RUSB, no rub or gallop. ABDOMEN: Soft, nontender, not distended, normoactive bowel sounds, no guarding, no rebound, no masses. No hepatomegaly or splenomegaly. UPPER EXTREMITIES: 2+ pulses, warm, well-perfused. No cyanosis. No clubbing. Cap refill <2 seconds. No peripheral edema. LOWER EXTREMITIES: 2+ pulses, warm, well-perfused. No calf tenderness. No peripheral edema. NEUROLOGICAL: Cranial nerves II-XII intact. Normal speech. SKIN: Warm, dry, normal turgor, no rashes or lesions noted. Laboratory Results - last 24 hr 04/22/17 04/22/17 05:35 05:35 WBC 10.7 H RBC 2.81 L D Hgb 7.6 L D Hct 23.0 L D MCV 81.8 MCH 26.9 D MCHC 32.9 RDW 26.7 H Plt Count 178 MPV 8.5 D Neutrophils % 82.7 Lymphocytes % 7.3 L Monocytes % 9.0 Eosinophils % 0.5 D Basophils % 0.5 Sodium 139 Potassium 3.7 Chloride 110 H Carbon Dioxide 22 Anion Gap 7 L BUN 40 H Creatinine 1.3 H Creat Clearance w eGFR 39.72 Random Glucose 84 D Calcium 7.2 L Total Bilirubin 0.6 D AST 22 ALT 16 Alkaline Phosphatase 144 H Total Protein 5.7 L Albumin 2.1 L Active Medications Generic Name Dose Route Start Last Admin Trade Name Freq PRN Reason Stop Dose Admin Ferrous Sulfate 325 mg 04/22/17 10:00 04/22/17 12:24 Feosol - PO 325 mg DAILY KARL Administration Pantoprazole Sodium 80 mg/ 100 mls @ 10 mls/hr 04/21/17 19:00 04/22/17 04:00 Sodium Chloride IVPB 10 mls/hr Q10H KARL Administration 8 MG/HR Levothyroxine Sodium 25 mcg 04/22/17 07:00 04/22/17 06:21 Synthroid - PO 25 mcg DAILY@0700 KARL Administration ASSESSMENT/PLAN: 77F with PMH hyperthyroidism, atelectasis of bilateral lungs, acute kidney injury who presented to ED with weakness and dizziness. Pt was admitted for severe anemia. #Abdominal surgery -Pt walks up 30 steps daily without cp, sob, hay -No cardiac history -Former smoker, quit 41yrs ago -Given absence of symptoms of acute coronary syndrome, decompensated CHF or malignant arrhythmia, there are no absolute cardiovascular contraindications against proceeding with planned abdominal surgery #Anemia -requiring transfusions -Hb 7.6 #Hypothyroid -on Synthroid Dispo: Thank you for this consultative opportunity. Heber Mendoza MD PGY-1 Cardiology service Visit type - Emergency Visit Emergency Visit: No - New Patient This patient is new to me today: No - Critical Care Critical Care patient: No
--- NOTE | 2017-04-22 12:42 | CON.CARD ---
Consult Consult Specialty:: Cardiology Referred by:: Dr. Segura Reason for Consultation:: Cardiac evaluation and for clearance - History of Present Illness Chief Complaint: Severe anemia History of Present Illness: Patient is a 77 year old female with underlying history of hypothyroidism, previous smoker, spontaneous pneumothorax post chest tube decompression and low hemoglobin with symptomatic fatigue who underwent colonoscopy. She was admitted with GI bleed and severe anemia. She as near obstructive mass in the hepatic flexure and currently awaits surgical intervention. Cardiology consultation was called for clearance. She denies chest pain, shortness of breath or palpitations. She denies paroxysmal nocturnal dyspnea or orthopnea. She denies fever or chills. She denies headache or lightheadedness. She denies nausea, vomiting, diarrhea or abdominal pain. Hemoglobin was 5 and she was transfused with PRBC. - History Source History Provided By: Patient, Medical Record Limitations to Obtaining History: No Limitations - Past Medical History Gastrointestinal: Yes: Constipation, GI Bleed, Other (Colon mass at the hepatic flexure) Heme/Onc: Yes: Anemia Endocrine: Yes: Hyperthyroidism - Past Surgical History Past Surgical History: Yes: Colonoscopy, , Upper Endoscopy - Alcohol/Substance Use Hx Alcohol Use: No History of Substance Use: reports: None - Smoking History Smoking history: Former smoker Have you smoked in the past 12 months: No If you are a former smoker, when did you quit?: 30 YEARS AGO - Social History Usual Living Arrangement: Alone ADL: Independent History of Recent Travel: No Home Medications - Allergies Allergies/Adverse Reactions: Allergies Allergy/AdvReac Type Severity Reaction Status Date / Time No Known Allergies Allergy Verified 04/21/17 13:00 - Home Medications Home Medications: Ambulatory Orders Ferrous Sulfate [Feosol] 325 mg PO DAILY #30 tab 03/19/17 Levothyroxine [Synthroid -] 25 mcg PO DAILY@0700 #30 tablet 03/19/17 Family Disease History - Family Disease History Family Disease History: Other: Son, Daughter Review of Systems - Review of Systems Constitutional: denies: Chills, Fever Cardiovascular: denies: Chest Pain, Palpitations, Shortness of Breath Respiratory: denies: Cough, Hemoptysis, Orthopnea, PND, SOB, SOB on Exertion Gastrointestinal: denies: Abdominal Pain, Constipation, Diarrhea, Melena, Nausea , Rectal Bleeding, Vomiting Musculoskeletal: denies: Joint Pain Neurological: denies: Dizziness, Headache, Seizure, Syncope, Weakness Vital Signs: Vital Signs Temperature 98.8 F 04/22/17 09:00 Pulse Rate 79 04/22/17 09:00 Respiratory Rate 18 04/22/17 09:00 Blood Pressure 121/61 04/22/17 09:00 O2 Sat by Pulse Oximetry (%) 103 H 04/21/17 21:00 Neck: Yes: Supple Respiratory: Yes: CTA Bilaterally Gastrointestinal: Yes: Normal Bowel Sounds, Soft. No: Tenderness Cardiovascular: Yes: Regular Rate and Rhythm JVD: No Carotid Bruit: No PMI: Non-Displaced Heart Sounds: Yes: S1, S2. No: Gallop Murmur: Yes: Systolic Murmur, Grade 1 Edema: No - Other Data Labs, Other Data: CBC, BMP 04/22/17 05:35 04/22/17 05:35 INR, PTT INR 1.20 (0.82-1.09) H 04/21/17 13:00 Laboratory Results - last 24 hr 04/21/17 04/22/17 04/22/17 13:04 05:35 05:35 WBC 10.7 H RBC 2.81 L D Hgb 7.6 L D Hct 23.0 L D MCV 81.8 MCH 26.9 D MCHC 32.9 RDW 26.7 H Plt Count 178 MPV 8.5 D Neutrophils % 82.7 Lymphocytes % 7.3 L Monocytes % 9.0 Eosinophils % 0.5 D Basophils % 0.5 Sodium 139 Potassium 3.7 Chloride 110 H Carbon Dioxide 22 Anion Gap 7 L BUN 40 H Creatinine 1.3 H Creat Clearance w eGFR 39.72 Random Glucose 84 D Calcium 7.2 L Total Bilirubin 0.6 D AST 22 ALT 16 Alkaline Phosphatase 144 H Total Protein 5.7 L Albumin 2.1 L Urine Color Urine Appearance Urine pH Urine Protein Urine Glucose (UA) Urine Ketones Urine Blood Urine Nitrite Urine Bilirubin Urine Urobilinogen Urine RBC Urine WBC Blood Type O POSITIVE Antibody Screen Negative Crossmatch See Detail 04/22/17 09:12 WBC RBC Hgb Hct MCV MCH MCHC RDW Plt Count MPV Neutrophils % Lymphocytes % Monocytes % Eosinophils % Basophils % Sodium Potassium Chloride Carbon Dioxide Anion Gap BUN Creatinine Creat Clearance w eGFR Random Glucose Calcium Total Bilirubin AST ALT Alkaline Phosphatase Total Protein Albumin Urine Color Yellow Urine Appearance Cloudy Urine pH 7.0 Urine Protein 1+ H Urine Glucose (UA) Negative Urine Ketones Negative Urine Blood 1+ H Urine Nitrite Negative Urine Bilirubin Negative Urine Urobilinogen Negative Urine RBC 2 Urine WBC 1118 Blood Type Antibody Screen Crossmatch Normal sinus rhythm Imaging - Results Chest X-ray: Report Reviewed (Unremarkable) Cat Scan: Report Reviewed (Colonic thickening, adenexal mass) Ultrasound: Report Reviewed (Transvaginal with adnexal cyst) EKG: Report Reviewed Problem List - Problems (1) Acute blood loss anemia Code(s): D62 - ACUTE POSTHEMORRHAGIC ANEMIA (2) Colon neoplasm Code(s): D49.0 - NEOPLASM OF UNSPECIFIED BEHAVIOR OF DIGESTIVE SYSTEM (3) Iron deficiency anemia Code(s): D50.9 - IRON DEFICIENCY ANEMIA, UNSPECIFIED Qualifiers: Iron deficiency anemia type: unspecified iron deficiency Qualified Code(s): D50.9 - Iron deficiency anemia, unspecified (4) Anemia Code(s): D64.9 - ANEMIA, UNSPECIFIED Qualifiers: Anemia type: unspecified type Qualified Code(s): D64.9 - Anemia, unspecified (5) Hypothyroidism Code(s): E03.9 - HYPOTHYROIDISM, UNSPECIFIED Qualifiers: Hypothyroidism type: unspecified Qualified Code(s): E03.9 - Hypothyroidism, unspecified (6) Pre-procedural cardiovascular examination Code(s): Z01.810 - ENCOUNTER FOR PREPROCEDURAL CARDIOVASCULAR EXAMINATION Assessment/Plan 1. Colon mass for surgery 2. Microcytic anemia requiring PRBC transfusion 3. Hypothyroidism 4. CKD 5. Adnexal cyst PLAN: 1. No absolute contraindication in proceeding with surgery in view of absence of ischemic symptoms, decompensated congestive heart failure or malignant arrhythmias. 2. Follow CBC and transfuse PRBC as needed Will follow with you. Thank you Tucker Marquez MD
[2017-04-22 12:48] LABS: URINE APPEARANCE CLOUDY; URINE BILIRUBIN NEGATIVE (NEGATIVE); URINE BLOOD 1+ (NEGATIVE); URINE COLOR YELLOW; URINE GLUCOSE (UA) NEGATIVE (NEGATIVE); URINE KETONE NEGATIVE (NEGATIVE); URINE NITRITE NEGATIVE (NEGATIVE); URINE UROBILINOGEN NEGATIVE mg/dL (0.2-1.0)
[2017-04-22 12:55] LABS: URINE LEUK ESTERASE 3+ (NEGATIVE); URINE PROTEIN 1+ (NEGATIVE)
--- NOTE | 2017-04-22 13:00 | PN ---
Progress Note (short form) - Note Progress Note: surgery pt seen and examined. full consult dictated. 77f with known colonic mass, underwent colonoscopy and upper endoscopy Ayo. Pt admitted yesterday for presumed upper gi bleed from upper endoscoy biopsy. colonoscopy showed nearly obstruction mass a hepatic flexure. Ct shows apple core lesion at hepatic flexure/distal ascending colon. Enlarged lymph nodes noted. No liver lesions. HGB 5 on arrival and now 7 after 2 prbc. incidental finding of adenexal mass noted. on exam abd is soft with midline scar. no masses. Plan- hepatic flexure colon mass likely cancer with anemia and near obstruction. Pt will benefit from colonic resection. Upper gi bleed appears to have resolved. 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 follow biopsy results. will start bowel prep. invanz prophylaxis. Poss surgery tomorrow.
[2017-04-22 13:09] LABS: URINE RBC 2 /hpf (0-3); URINE WBC 1118 /hpf (3-5)
--- NOTE | 2017-04-22 14:48 | CON.PULM ---
Consult Consult Specialty:: PULM/CCM Referred by:: BALWINDER Reason for Consultation:: Clearance prior to surgery - History of Present Illness Chief Complaint: weakness / severe anemia History of Present Illness: 77 hyperthyroidism, colonic mass suspected to be colon CA, former smoker, history of PTX and decompression, and likely chronic lung disease. CT chest 03/2017 : chronic mild atelectasis in the bases, nodules or masses. Patient admitted for symptomatic anemia requiring pRBCS. Obstructing mass noted on CT imaging. 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: Alzheimer's, CVA, Dementia, Migraine, Multiple Sclerosis, Peripheral Neuropathy, Parkinson's, Seizure, Syncope, TIA, Vertigo, Other Cardio/Vascular: No: AFIB, Aneurysm, Aortic Insufficiency, Aortic Stenosis, CAD , CHF, Deep Vein Thrombosis, HTN, Hyperlipdemia, OK, Mitral Insufficiency, Mitral Stenosis, Murmur, Pulmonary Hypertension, Other Pulmonary: Yes: Other Gastrointestinal: Yes: Constipation Hepatobiliary: No: Cirrhosis, Cholelithiasis, Cholecystitis, Choledocholithiasis , Hepatitis A, Hepatitis B, Hepatitis C, Other Renal/: No: Renal Failure, Renal Inusuff, BPH, Cancer, Hematuria, Hemodialysis , Neurogenic Bladder, Renal Calculi, UTI, Other Infectious Disease: No: AIDS, C-Diff, Herpes Zoster, HIV, MRSA, STD's, Tuberculosis, VREF, Other Psych: No: Addictions, Anxiety, Bipolar, Depression, Panic, Psychosis, Schizophrenia, Other Musculoskeletal: No: Bursitis, Chronic low back pain, Hemiparesis, Hemiplegia, Osteoarthritis, Paraplegia, Other Rheumatology: No: Fibromyalgia, Gout, Lupus, Rheumatoid Arthritis, Sarcoidosis, Vasculitis, Other Endocrine: Yes: Hyperthyroidism Dermatology: No: Basal Cell, Cellulitis, Eczema, Melanoma, Psoriasis, Squamous Cell, Other - Past Surgical History Past Surgical History: Yes: Colonoscopy, , Upper Endoscopy - Alcohol/Substance Use Hx Alcohol Use: No History of Substance Use: reports: None - Smoking History Smoking history: Former smoker Have you smoked in the past 12 months: No If you are a former smoker, when did you quit?: 30 YEARS AGO - Social History Usual Living Arrangement: Alone ADL: Independent History of Recent Travel: No Home Medications - Allergies Allergies/Adverse Reactions: Allergies Allergy/AdvReac Type Severity Reaction Status Date / Time No Known Allergies Allergy Verified 04/21/17 13:00 - Home Medications Home Medications: Ambulatory Orders Ferrous Sulfate [Feosol] 325 mg PO DAILY #30 tab 03/19/17 Levothyroxine [Synthroid -] 25 mcg PO DAILY@0700 #30 tablet 03/19/17 Family Disease History - Family Disease History Family Disease History: Other: Son, Daughter Review of Systems - Review of Systems Constitutional: reports: Lethargy, Malaise. denies: Chills, Fever, Night Sweats Eyes: reports: No Symptoms HENT: reports: No Symptoms Neck: reports: No Symptoms Cardiovascular: denies: Chest Pain, Palpitations, Shortness of Breath Respiratory: denies: Cough, Hemoptysis, Snoring, SOB, Wheezing Gastrointestinal: reports: Bloating, Indigestion, Nausea Genitourinary: reports: No Symptoms Breasts: reports: No Symptoms Reported Musculoskeletal: reports: No Symptoms Integumentary: reports: No Symptoms Neurological: reports: No Symptoms Hematology/Lymphatic: reports: No Symptoms Psychiatric: reports: No Symptoms Physical Exam Vital Sings: Vital Signs Temperature 98.8 F 04/22/17 09:00 Pulse Rate 79 04/22/17 09:00 Respiratory Rate 18 04/22/17 09:00 Blood Pressure 121/61 04/22/17 09:00 O2 Sat by Pulse Oximetry (%) 103 H 04/21/17 21:00 Constitutional: Yes: No Distress, Calm Eyes: Yes: Conjunctiva Clear, EOM Intact HENT: Yes: Atraumatic, Normocephalic Neck: Yes: Supple, Trachea Midline Cardiovascular: Yes: Regular Rate and Rhythm Respiratory: Yes: CTA Bilaterally, On Nasal O2. No: Accessory Muscle Use, Rales , Stridor, Tachypnea, Wheezes ...Inspection: Yes: WNL ...Clubbing: No Gastrointestinal: Yes: Normal Bowel Sounds, Soft Renal/: Yes: WNL Musculoskeletal: Yes: WNL Extremities: Yes: WNL Edema: No Peripheral Pulses WNL: Yes Integumentary: Yes: WNL Neurological: Yes: Alert, Oriented ...Motor Strength: WNL Psychiatric: Yes: WNL, Alert, Oriented Labs: CBC, BMP 04/22/17 05:35 09/19/17 05:35 Imaging - Results Chest X-ray: Report Reviewed, Image Reviewed Problem List - Problems (1) Acute blood loss anemia Code(s): D62 - ACUTE POSTHEMORRHAGIC ANEMIA (2) Colon neoplasm Code(s): D49.0 - NEOPLASM OF UNSPECIFIED BEHAVIOR OF DIGESTIVE SYSTEM (3) Esophagitis Code(s): K20.9 - ESOPHAGITIS, UNSPECIFIED (4) GIB (gastrointestinal bleeding) Code(s): K92.2 - GASTROINTESTINAL HEMORRHAGE, UNSPECIFIED Qualifiers: GI bleed type/associated pathology: unspecified gastrointestinal hemorrhage type Qualified Code(s): K92.2 - Gastrointestinal hemorrhage, unspecified (5) Hematemesis with nausea Code(s): K92.0 - HEMATEMESIS R11.0 - NAUSEA (6) SHARITA (acute kidney injury) Code(s): N17.9 - ACUTE KIDNEY FAILURE, UNSPECIFIED (7) Atelectasis of both lungs Code(s): J98.11 - ATELECTASIS (8) 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 Assessment/Plan Transfusional support O2 as needed BD TX PRN No role for systemic steroids at this time No obvious history consistent with OSAS> No Pulmonary contraindication for OR as intervention outweighs risk Dr Mckeon
--- NOTE | 2017-04-22 16:11 | CONS ---
DATE OF CONSULTATION: 04/22/2017 REASON FOR CONSULTATION: Colon mass. This is a consultation at the request of Dr. Sayda Segura. This is an inpatient consultation. BRIEF HISTORY: This is a 77-year-old female who was recently diagnosed with anemia. At the time, she had a CAT scan done which showed an abnormal portion of her ascending colon and hepatic flexure. At that time, it was considered either to be a malignancy versus colitis, and she declined colonoscopy then. She underwent last Friday a colonoscopy as well as an upper endoscopy. Colonoscopy findings were significant for a mass located at the hepatic flexure, that was nearly obstructing, and the scope was unable to pass. She also was noted on upper endoscopy to have inflammatory changes at the GE junction, and biopsies were taken there as well. Patient was discharged home on a high-fiber diet and returned to the hospital yesterday with vomiting blood and blood in her stool. She was admitted for presumed bleeding from her upper endoscopy biopsy sites. Since admission, her bleeding has stopped. Her hemoglobin was 5 on admission, and after 2 units of blood, it is now 7.5. Request was made for surgical evaluation for the colonic mass. She admits to a 15-pound weight loss in the past 3 months. PAST MEDICAL HISTORY: Significant for anemia, possible colitis, and constipation. PAST SURGICAL HISTORY: Includes 2 sections, followed by incisional hernia repair. She had a chest tube placed for pneumothorax many years ago. SOCIAL HISTORY: Significant for quitting tobacco 40 years ago. HOME MEDICATIONS: Include iron and Synthroid. FAMILY HISTORY: Negative for malignancy in the immediate family. REVIEW OF SYSTEMS: General: Admits to fatigue. Cardiac: Denies chest pain or palpitations. Respiratory: Denies shortness of breath or wheeze. Gastrointestinal: As in HPI. Genitourinary: Denies dysuria. Musculoskeletal: Denies joint pain and joint swelling. Psychiatric: Denies anxiety, depression, or hearing voices. PHYSICAL EXAMINATION: General: This is a well-developed, well-nourished, 77-year-old female in no distress. Vital Signs: She is afebrile. Her vital signs are stable. HEENT: Her head is normocephalic. Her sclerae are anicteric. Neck: Supple. Chest: Clear. Abdomen: Soft, nontender. There is a large midline scar. There are no obvious hernias. She has no masses, no tenderness. Extremities: Trace edema. LABORATORY DATA: Her white blood cell count is 10.7; her hemoglobin is 7.6, up from 5.1; her platelet count is 178. Her coagulation profile is normal. Her chemistries are unremarkable with the exception of a mildly elevated alkaline phosphatase. On review of her imaging, she has a CAT scan of her abdomen and pelvis which shows a thickened segment of her distal ascending colon as well as hepatic flexure, with an apple-core appearance. Contrast is able to pass through it, but it is definitely compressed. She also has enlarged lymph nodes in that area. There are no obvious masses noted in the liver. No omental caking noted. She does appear to have an incidental finding of a cystic mass located probably in her adnexa which is felt to either be a cystadenoma or a cystadenocarcinoma. The patient has had an ultrasound of this; results are pending. ASSESSMENT: This is a 77-year-old female with history of weight loss, anemia, and constipation, noted to have a colonic mass on CAT scan and colonoscopy located at her hepatic flexure. She also was admitted for an upper gastrointestinal bleed from an upper endoscopy biopsy site and has an incidental pelvic mass. At this point, the patient would benefit from a colonic resection of this likely malignancy. We will await biopsy results which should be available today. Also, I have requested a gynecological opinion regarding the cystic mass located in the pelvis, and ultrasound results are pending. Based on recommendations, we will likely move in the direction of surgery potentially tomorrow. This can likely be done laparoscopically. We will start the patient with a bowel prep of GoLYTELY. We will give Invanz prophylaxis at the time of incision to prevent infection. Patient is currently being optimized by the cardiology service. Even if this is not proven to be a malignancy, there are other indications for surgery such as near obstruction and anemia, and the patient likely would benefit from having this segment removed. Risks and benefits of surgery have been explained to the patient and her daughter in detail. These are including, but not limited to, the possibility of conversion to open, possible injury to viscera, the possibility of blood loss requiring blood transfusion, the possibility of an anastomotic leak, the possibility of future hernia, the possibility of future obstruction, the possibility of an ostomy, plus a multitude of medical risks including, but not limited to, cardiac, neurologic, pulmonary, and vascular complications, even . The patient understands these risks and is agreeable to surgery. DO SHON NAVARRO/[id number]
--- NOTE | 2017-04-22 17:44 | PN ---
GI Progress Note Subjective: GASTROENTEROLOGY STARTED ON BOWEL PREP HAVING BM, TOLERATING OK FOR SURGERY TOMORROW - Objective Vital Signs: Vital Signs Temperature 98.3 F 04/22/17 15:22 Pulse Rate 72 04/22/17 15:22 Respiratory Rate 18 04/22/17 09:00 Blood Pressure 119/59 04/22/17 15:22 O2 Sat by Pulse Oximetry (%) 103 H 04/21/17 21:00 Constitutional: No Distress, Calm Eyes: Yes: Conjunctiva Clear HENT: Yes: Normocephalic Neck: Yes: Supple Cardiovascular: Yes: Regular Rate and Rhythm Respiratory: Yes: Regular Gastrointestinal Inspection: Yes: WNL ...Auscultate: Yes: Normoactive Bowel Sounds Extremities: Yes: WNL Labs: CBC, BMP 04/22/17 05:35 04/22/17 05:35 INR, PTT INR 1.20 (0.82-1.09) H 04/21/17 13:00 - ....Imaging X-ray: Report Reviewed, Image Reviewed Problem List - Problems (1) Colon neoplasm Assessment/Plan: SEEN BY GENERAL SURGERY. SPOKE WITH PATHOLOGIST TODAY BIOPSIES FROM MASS IN HEPATIC/ASCENDING COLON WERE TUBULAR ADENOMA. CLINICALLY I BELIEVE THAT THIS IS A MALIGNANCY AND THE RESULTS ARE DUE TO SAMPLING SMALL PART OF A LARGE TUMOR. THE TUMOR IS AT AT 7 CM AND HAS CAUSED BLEEDING AND SEVERE ANEMIA. I AGREE WITH PROCEEDING TO SURGERY TOMORROW. NEEDS TRANSFUSIONAL SUPPORT, REPEAT CBC AFTER TRANSFUSIONS AT 11 AM Code(s): D49.0 - NEOPLASM OF UNSPECIFIED BEHAVIOR OF DIGESTIVE SYSTEM (2) Hematemesis with nausea Assessment/Plan: BLEEDING HAS STOPPED WOULD CONTINUE IV PROTONIX FOR [address] ALLEN TODAY ESOPHAGEAL BIOPSY + FOR SEXTON'S ESOPHAGITIS NO DYSPLASIA PLAN FOR REPEAT EGD 3 MONTHS POST SURGERY Code(s): K92.0 - HEMATEMESIS R11.0 - NAUSEA (3) Acute blood loss anemia Code(s): D62 - ACUTE POSTHEMORRHAGIC ANEMIA (4) Iron deficiency anemia Code(s): D50.9 - IRON DEFICIENCY ANEMIA, UNSPECIFIED Qualifiers: Iron deficiency anemia type: unspecified iron deficiency Qualified Code(s): D50.9 - Iron deficiency anemia, unspecified (5) Esophagitis Code(s): K20.9 - ESOPHAGITIS, UNSPECIFIED (6) Hypothyroidism Code(s): E03.9 - HYPOTHYROIDISM, UNSPECIFIED Qualifiers: Hypothyroidism type: unspecified Qualified Code(s): E03.9 - Hypothyroidism, unspecified
--- NOTE | 2017-04-22 20:39 | CON.OBG ---
Consult Consult Specialty:: SURVEYOR'S ASSISTANT Referred by:: Dr. Monroe Segura Reason for Consultation:: 77yo female with left cystic adnexal mass - History of Present Illness Chief Complaint: 77yo female with left cystic adnexal mass, admitted for severe anemia, and diagnosed with colon mass. History of Present Illness: The pt was seen by me in Mar for a left adnexal mass, while she was admitted to [facility] with severe anemia. The pt was asked to f/u in office but did not come in. I was asked to see the patient today, after she was admitted again for anemia and found to have a large colon mass that showed tubular adenoma on bx but may be malignant. The pt is scheduled for colon resection tomorrow morning. - History Source History Provided By: Patient, Medical Record Limitations to Obtaining History: No Limitations - Past Medical History MICROBIAL SPECIALIST: No: Alzheimer's, CVA, Dementia, Migraine, Multiple Sclerosis, Peripheral Neuropathy, Parkinson's, Seizure, Syncope, TIA, Vertigo, Other Cardio/Vascular: No: AFIB, Aneurysm, Aortic Insufficiency, Aortic Stenosis, CAD , CHF, Deep Vein Thrombosis, HTN, Hyperlipdemia, [place], Mitral Insufficiency, Mitral Stenosis, Murmur, Pulmonary Hypertension, Other Pulmonary: Yes: Other Gastrointestinal: Yes: Constipation, GI Bleed, Other (Colon mass at the hepatic flexure) Hepatobiliary: No: Cirrhosis, Cholelithiasis, Cholecystitis, Choledocholithiasis , Hepatitis A, Hepatitis B, Hepatitis C, Other Renal/: No: Renal Failure, Renal Inusuff, BPH, Cancer, Hematuria, Hemodialysis , Neurogenic Bladder, Renal Calculi, UTI, Other Heme/Onc: Yes: Anemia Infectious Disease: No: AIDS, C-Diff, Herpes Zoster, HIV, MRSA, STD's, Tuberculosis, VREF, Other Psych: No: Addictions, Anxiety, Bipolar, Depression, Panic, Psychosis, Schizophrenia, Other Musculoskeletal: No: Bursitis, Chronic low back pain, Hemiparesis, Hemiplegia, Osteoarthritis, Paraplegia, Other Rheumatology: No: Fibromyalgia, Gout, Lupus, Rheumatoid Arthritis, Sarcoidosis, Vasculitis, Other Endocrine: Yes: Hyperthyroidism Dermatology: No: Basal Cell, Cellulitis, Eczema, Melanoma, Psoriasis, Squamous Cell, Other - Past Surgical History Past Surgical History: Yes: Colonoscopy, (x 2), Upper Endoscopy - Alcohol/Substance Use Hx Alcohol Use: No History of Substance Use: reports: None - Smoking History Smoking history: Former smoker Have you smoked in the past 12 months: No If you are a former smoker, when did you quit?: 30 YEARS AGO - Social History Usual Living Arrangement: Alone ADL: Independent History of Recent Travel: No Home Medications - Allergies Allergies/Adverse Reactions: Allergies Allergy/AdvReac Type Severity Reaction Status Date / Time No Known Allergies Allergy Verified 04/21/17 13:00 - Home Medications Home Medications: Ambulatory Orders Ferrous Sulfate [Feosol] 325 mg PO DAILY #30 tab 03/19/17 Levothyroxine [Synthroid -] 25 mcg PO DAILY@0700 #30 tablet 03/19/17 Family Disease History - Family Disease History Family Disease History: Other: Son, Daughter Review of Systems - Review of Systems Constitutional: reports: Lethargy, Weakness Eyes: reports: No Symptoms HENT: reports: No Symptoms Neck: reports: No Symptoms Cardiovascular: reports: Shortness of Breath Gastrointestinal: reports: No Symptoms Genitourinary: reports: No Symptoms Breasts: reports: No Symptoms Reported Integumentary: reports: No Symptoms Neurological: reports: No Symptoms Endocrine: reports: No Symptoms Hematology/Lymphatic: reports: No Symptoms Psychiatric: reports: No Symptoms Pain Intensity: 0 Physical Exam-SURVEYOR'S ASSISTANT Vital Signs: Vital Signs Temperature 98.7 F 04/22/17 18:00 Pulse Rate 75 04/22/17 18:00 Respiratory Rate 18 04/22/17 18:00 Blood Pressure 137/60 04/22/17 18:00 O2 Sat by Pulse Oximetry (%) 103 H 04/21/17 21:00 Labs: CBC, BMP 04/22/17 05:35 04/22/17 05:35 Assessment/Plan 77yo P2 with 6.5cm left cystic adnexal mass and large colon mass. The pt is scheduled by surgery (Dr. Torres) for colon resection in am (time is to be determined). It would be preferable if the patient also has left oophorectomy, possibly bilateral oophorectomy, done at the same time. Either myself or my partner will attempt to accommodate tomorrow's OR schedule. However, I spoke to Dr. Torres and he feels comfortable to perform a left oophorectomy without SURVEYOR'S ASSISTANT involvement, if necessary.
[2017-04-23] MEDS ORDERED: PT OWN MED DRAWER 7, Y5N ONE (01:29)
[2017-04-23 01:30] LABS: MCH 27.4 pg (25.7-33.7); MCHC 33.6 g/dl (32.0-36.0); MEAN CELL VOLUME 81.4 fl (80-96); MEAN PLT VOLUME 8.5 fl (7.5-11.1); PLATELET COUNT 177 K/MM3 (134-434); RDW 22.5 % (11.6-15.6); WHITE BLOOD COUNT 12.3 K/mm3 (4.0-10.0)
[2017-04-23] MEDS: PANTOPRAZOLE SODIUM 80 MG in SODIUM CHLORIDE 100 ML IVPB SCH ×2 (01:32→21:15)
[2017-04-23] MEDS: LEVOTHYROXINE NA 25 MCG TABLET (FP) PO SCH (06:07)
[2017-04-23 08:15] LABS: BASOPHIL 0.4 % (0-2.0); EOSINOPHIL 0.4 % (0-4.5); MCH 26.8 pg (25.7-33.7); MCHC 33.3 g/dl (32.0-36.0); MEAN CELL VOLUME 80.4 fl (80-96); MEAN PLT VOLUME 8.5 fl (7.5-11.1); NEUTROPHILS 86.5 % (42.8-82.8); PLATELET COUNT 174 K/MM3 (134-434); WHITE BLOOD COUNT 13.1 K/mm3 (4.0-10.0)
--- NOTE | 2017-04-23 08:44 | PN ---
Progress Note, Physician History of Present Illness: Tolerated laparoscopic extended right colectomy with en bloc resection of portion of abd wall and removal of left adenexal mass without hemodynamic perturbations. - Current Medication List Current Medications: Active Medications Ertapenem (Invanz (Pre-Docked)) 1 gm IVPB ONCE ONE Stop: 04/23/17 10:01 Ferrous Sulfate (Feosol -) 325 mg PO DAILY [facility] Last Admin: 04/22/17 12:24 Dose: 325 mg Pantoprazole Sodium 80 mg/ (Sodium Chloride) 100 mls @ 10 mls/hr IVPB Q10H [facility] PRN Reason: 8 MG/HR Last Admin: 04/23/17 01:32 Dose: 10 mls/hr Levothyroxine Sodium (Synthroid -) 25 mcg PO DAILY@0700 [facility] Last Admin: 04/23/17 06:07 Dose: Not Given - Objective Vital Signs: Vital Signs Temperature 99.4 F 04/23/17 08:02 Pulse Rate 77 04/23/17 08:02 Respiratory Rate 18 04/23/17 08:02 Blood Pressure 147/67 04/23/17 08:02 O2 Sat by Pulse Oximetry (%) 97 04/22/17 21:00 Constitutional: Yes: No Distress, Calm Neck: Yes: Supple Cardiovascular: Yes: Regular Rate and Rhythm Respiratory: Yes: Regular, Diminished, On Nasal O2 Gastrointestinal: Yes: Soft, Hypoactive Bowel Sounds, Other (Post-op) Edema: No Labs: CBC, BMP 04/23/17 05:46 INR, PTT INR 1.20 (0.82-1.09) H 04/21/17 13:00 Problem List - Problems (1) Acute blood loss anemia Code(s): D62 - ACUTE POSTHEMORRHAGIC ANEMIA (2) Colon neoplasm Code(s): D49.0 - NEOPLASM OF UNSPECIFIED BEHAVIOR OF DIGESTIVE SYSTEM (3) GIB (gastrointestinal bleeding) Code(s): K92.2 - GASTROINTESTINAL HEMORRHAGE, UNSPECIFIED Qualifiers: GI bleed type/associated pathology: unspecified gastrointestinal hemorrhage type Qualified Code(s): K92.2 - Gastrointestinal hemorrhage, unspecified (4) Hypothyroidism Code(s): E03.9 - HYPOTHYROIDISM, UNSPECIFIED Qualifiers: Hypothyroidism type: unspecified Qualified Code(s): E03.9 - Hypothyroidism, unspecified (5) Adnexal mass Code(s): N94.9 - UNSP COND ASSOC W FEMALE GENITAL ORGANS AND MENSTRUAL CYCLE (6) S/P laparoscopic colectomy Code(s): Z90.49 - ACQUIRED ABSENCE OF OTHER SPECIFIED PARTS OF DIGESTIVE TRACT (7) Chronic kidney disease Code(s): N18.9 - CHRONIC KIDNEY DISEASE, UNSPECIFIED Qualifiers: Chronic kidney disease stage: stage 2 (mild) Qualified Code(s): N18.2 - Chronic kidney disease, stage 2 (mild) Assessment/Plan 1. Hepatic flexure colon mass POD#0 laparoscopic right colectomy, tumor invading abd wall and adhesed to surface of duodenum and likely involving lymphatics and vascular 2. Left cystic adnexal mass post left oophorectomy POD#0 2. Microcytic anemia post transfusion 3. Hypothyroidism 4. CKD PLAN: 1. Follow CBC and transfuse PRBC as needed 2. F/u pathology, staging work-up 3. Routine post-op care, mojgan-op abx course, DVT prophylaxis
[2017-04-23 08:55] LABS: ALBUMIN 2.2 g/dl (3.4-5.0); ANION GAP 13 (8-16); CALCIUM 7.3 mg/dL (8.5-10.1); CO2 19 mmol/L (21-32); SGOT/AST 19 U/L (15-37); SGPT/ALT 14 U/L (12-78)
[2017-04-23 08:58] LABS: ALK PHOS 175 U/L (45-117); BILIRUBIN,TOTAL 0.7 mg/dL (0.2-1.0); CREATININE 1.3 mg/dL (0.55-1.02); TOT PROT 5.7 g/dl (6.4-8.2)
[2017-04-23 08:59] LABS: GLUCOSE,RANDOM 96 mg/dL (74-106)
[2017-04-23] MEDS: FERROUS SO4 325 MG TABLET (FP) PO SCH (09:03)
[2017-04-23] MEDS ORDERED: ROCURONIUM BROMIDE 50 MG/5 ML VIAL ONE ×2 (09:10→09:36)
[2017-04-23] MEDS ORDERED: PROPOFOL 20 ML ONE (09:10)
[2017-04-23] MEDS ORDERED: SUCCINYLCHOLINE CHLORIDE 200 MG/10 ML VIAL ONE (09:10)
[2017-04-23] MEDS ORDERED: LIDOCAINE HCL/PF 2% SDV 5ML VIAL ONE (09:15)
[2017-04-23] MEDS ORDERED: ERTAPENEM SODIUM 1 GM/50 ML PRE-DOCKED IVPB ONE ×2 (09:20→10:00)
[2017-04-23] MEDS ORDERED: DEXAMETHASONE SOD PHOSPHATE 4 MG/1 ML VIAL ONE (09:32)
[2017-04-23] MEDS ORDERED: ceFAZolin SODIUM 1 GM VIAL ONE (09:32)
[2017-04-23 09:46] LABS: PLATELET ESTIMATE ADEQUATE (NORMAL)
[2017-04-23 09:47] LABS: ANISOCYTOSIS 2+; MICROCYTOSIS 1+; POLYCHROMASIA F
[2017-04-23] MEDS ORDERED: HYDROmorphone HCL/PF 1 MG/ML VIAL (FOR PYXIS CHARGING ONLY) ONE (09:57)
--- NOTE | 2017-04-23 10:38 | PN ---
Progress Note, Physician Chief Complaint: in postop s/p R hemicolectomy opens eyes; NAD; VSS afebrile daughter at bedside also d/w surgery dr Torres; most likely colon CA; will ask antoni onc jitendra d/w [employer] dr Hanna - Current Medication List Current Medications: Active Medications Ferrous Sulfate (Feosol -) 325 mg PO DAILY [facility] Last Admin: 04/23/17 09:03 Dose: Not Given Pantoprazole Sodium 80 mg/ (Sodium Chloride) 100 mls @ 10 mls/hr IVPB Q10H [facility] PRN Reason: 8 MG/HR Last Admin: 04/23/17 01:32 Dose: 10 mls/hr Levothyroxine Sodium (Synthroid -) 25 mcg PO DAILY@0700 [facility] Last Admin: 04/23/17 06:07 Dose: Not Given - Objective Vital Signs: Vital Signs Temperature 99.4 F 04/23/17 08:02 Pulse Rate 77 04/23/17 08:02 Respiratory Rate 18 04/23/17 08:02 Blood Pressure 147/67 04/23/17 08:02 O2 Sat by Pulse Oximetry (%) 97 04/22/17 21:00 Constitutional: Yes: No Distress Eyes: Yes: Conjunctiva Clear HENT: Yes: Atraumatic Neck: Yes: Supple Cardiovascular: Yes: Regular Rate and Rhythm Respiratory: Yes: Diminished Gastrointestinal: Yes: Soft, Other (s/p surgery ND, decreased BS) Genitourinary: No: Hematuria Musculoskeletal: No: Joint Swelling Extremities: No: Cold, Cool, Cyanosis Edema: No Integumentary: No: Rash, Venous Stasis Changes Neurological: No: Alert, Oriented Psychiatric: No: Alert, Oriented, Agitated Labs: CBC, BMP 04/23/17 05:46 04/23/17 05:46 INR, PTT INR 1.20 (0.82-1.09) H 04/21/17 13:00 - ....Imaging Other: Report Reviewed Assessment/Plan 77 y/o F with a PMHx of hyperthyroidism, atelectasis of bilateral lungs, acute kidney injury presents to the ED via EMS dizziness and weakness. Severe anemia GI bleed, colonic mass possible colon CA admitted to telemetry; consults appreciated transfused to 9 s/p R hemicolectomy and partial oophorectomy cardiac, pulm and GI f/u check pathology Heme onc eval f/u labs d/w pt's daughter t time 40 min
[2017-04-23] MEDS ORDERED: GLYCOPYRROLATE 0.2 MG/1 ML VIAL ONE (11:42)
[2017-04-23] MEDS ORDERED: NEOSTIGMINE METHYLSULFATE 0.5 MG/ML - 10 ML MDV ONE (11:43)
--- NOTE | 2017-04-23 12:21 | OP ---
Operative Note - Note: Operative Date: 04/23/17 Pre-Operative Diagnosis: right colon neoplasm, left adenexal mass, weight loss, anemia, constipation Operation: laparoscopic extended right colectomy with en bloc resection of portion of abd wall, removal of left adenexal mass Findings: tumor invading abd wall and adhesed to surface of duodenum and likely involving lymphatics and vascular (See Dr. Torres's description in dictated report) left adenexal mass/cyst Post-Operative Diagnosis: Same as Pre-op Surgeon: Michael Torres Vp Customer Development: Eloy Herzog Anesthesiologist/IMPRESS ASSOCIATE: Enrico Brady Anesthesia: General Specimens Removed: right colon with transverse colon, portion of abd wall, left adenexal mass Estimated Blood Loss (mls): 30 Operative Report Dictated: Yes
[2017-04-23] MEDS ORDERED: oxyCODONE HCL 5 MG TABLET PO PRN (12:27)
[2017-04-23] MEDS ORDERED: ACETAMINOPHEN 650 MG SUPP.RECT PR PRN (12:32)
[2017-04-23] MEDS ORDERED: LACTATED RINGERS SOLUTION 1,000 ML IV SCH (13:00)
[2017-04-23] MEDS ORDERED: ONDANSETRON 4 MG/2 ML VIAL IVPUSH PRN (13:00)
[2017-04-23] MEDS ORDERED: HYDROmorphone HCL CARPU-JECT 2 MG/1 ML DISP.SYRIN ONE (13:06)
[2017-04-23] MEDS: HYDROmorphone HCL CARPU-JECT 1 MG/1 ML DISP.SYRIN IVPUSH PRN ×2 (13:10→13:50)
--- NOTE | 2017-04-23 16:15 | CONSULT ---
Consult Consult Specialty:: Oncology - History of Present Illness History of Present Illness: Known from previous hospiatlization. Now diagnosed with colon cancer. s/p surgerytoday. Seen for the new diagnosis. 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: No: Alzheimer's, CVA, Dementia, Migraine, Multiple Sclerosis, Peripheral Neuropathy, Parkinson's, Seizure, Syncope, TIA, Vertigo, Other Cardio/Vascular: No: AFIB, Aneurysm, Aortic Insufficiency, Aortic Stenosis, CAD , CHF, Deep Vein Thrombosis, HTN, Hyperlipdemia, [place], Mitral Insufficiency, Mitral Stenosis, Murmur, Pulmonary Hypertension, Other Pulmonary: Yes: Other Gastrointestinal: Yes: Constipation Hepatobiliary: No: Cirrhosis, Cholelithiasis, Cholecystitis, Choledocholithiasis , Hepatitis A, Hepatitis B, Hepatitis C, Other Renal/: No: Renal Failure, Renal Inusuff, BPH, Cancer, Hematuria, Hemodialysis , Neurogenic Bladder, Renal Calculi, UTI, Other Infectious Disease: No: AIDS, C-Diff, Herpes Zoster, HIV, MRSA, STD's, Tuberculosis, VREF, Other Psych: No: Addictions, Anxiety, Bipolar, Depression, Panic, Psychosis, Schizophrenia, Other Musculoskeletal: No: Bursitis, Chronic low back pain, Hemiparesis, Hemiplegia, Osteoarthritis, Paraplegia, Other Rheumatology: No: Fibromyalgia, Gout, Lupus, Rheumatoid Arthritis, Sarcoidosis, Vasculitis, Other Endocrine: Yes: Hyperthyroidism Dermatology: No: Basal Cell, Cellulitis, Eczema, Melanoma, Psoriasis, Squamous Cell, Other - Past Surgical History Past Surgical History: Yes: - Alcohol/Substance Use Hx Alcohol Use: No History of Substance Use: reports: None - Smoking History Smoking history: Former smoker Have you smoked in the past 12 months: No If you are a former smoker, when did you quit?: 30 YEARS AGO - Social History Usual Living Arrangement: Alone ADL: Independent History of Recent Travel: No Home Medications - Allergies Allergies/Adverse Reactions: Allergies Allergy/AdvReac Type Severity Reaction Status Date / Time No Known Allergies Allergy Verified 04/21/17 13:00 - Home Medications Home Medications: Ambulatory Orders Ferrous Sulfate [Feosol] 325 mg PO DAILY #30 tab 03/19/17 Levothyroxine [Synthroid -] 25 mcg PO DAILY@0700 #30 tablet 03/19/17 Family Disease History - Family Disease History Family Disease History: Other: Son, Daughter (lupus) Physical Exam Vital Signs: Vital Signs Temperature 98.2 F 04/23/17 15:17 Pulse Rate 78 04/23/17 15:17 Respiratory Rate 18 04/23/17 15:17 Blood Pressure 126/70 04/23/17 15:17 O2 Sat by Pulse Oximetry (%) 99 04/23/17 15:17 Constitutional: Yes: Other (sleepy) Cardiovascular: Yes: Regular Rate and Rhythm Respiratory: Yes: Regular, CTA Bilaterally Edema: No Labs: CBC, BMP 04/23/17 05:46 04/23/17 05:46 Imaging - Results Cat Scan: Report Reviewed Assessment/Plan New diagnosis of colon cancer. Will await for final surgical path report. recommendations to follow likely will need adjuvant chemo will f/u CEA. discussed with son and corazon d/w
[2017-04-23] MEDS: D5-1/2NS+20 MEQ KCL - 1,000 ML IV SCH (21:19)
[2017-04-24] MEDS: morphine CARPU-JECT 2 MG/1 ML DISP.SYRIN IVPB PRN (02:48)
[2017-04-24] MEDS: PANTOPRAZOLE SODIUM 80 MG in SODIUM CHLORIDE 100 ML IVPB SCH ×2 (06:43→16:06)
[2017-04-24 07:32] LABS: BASOPHIL 0.1 % (0-2.0); MCH 27.3 pg (25.7-33.7); MCHC 33.5 g/dl (32.0-36.0); MEAN CELL VOLUME 81.3 fl (80-96); NEUTROPHILS 88.2 % (42.8-82.8); PLATELET COUNT 231 K/MM3 (134-434); RDW 23.7 % (11.6-15.6); WHITE BLOOD COUNT 12.9 K/mm3 (4.0-10.0)
[2017-04-24 07:49] LABS: ALBUMIN 1.8 g/dl (3.4-5.0); ANION GAP 8 (8-16); CO2 21 mmol/L (21-32); CREATININE 1.6 mg/dL (0.55-1.02); GLUCOSE,RANDOM 165 mg/dL (74-106); MAGNESIUM 2.2 mg/dL (1.8-2.4); SGOT/AST 22 U/L (15-37); SGPT/ALT 14 U/L (12-78)
[2017-04-24 07:50] LABS: ALK PHOS 134 U/L (45-117); BILIRUBIN,TOTAL 0.5 mg/dL (0.2-1.0); TOT PROT 5.5 g/dl (6.4-8.2)
[2017-04-24 08:30] LABS: CALCIUM 6.8 mg/dL (8.5-10.1)
[2017-04-24] MEDS ORDERED: PANTOPRAZOLE SODIUM 40 MG in SODIUM CHLORIDE 100 ML IVPB SCH (10:00)
--- NOTE | 2017-04-24 10:22 | PN ---
Progress Note, Physician History of Present Illness: Incisional discomfort, no flatus yet. - Current Medication List Current Medications: Active Medications Acetaminophen (Tylenol Suppository -) 650 mg ND Q4H PRN PRN Reason: FEVER OR PAIN Enoxaparin Sodium (Lovenox -) 40 mg SQ BID [facility] Ertapenem (Invanz (Pre-Docked)) 1 gm IVPB DAILY [facility] Stop: 04/25/17 08:59 Hydromorphone HCl (Dilaudid Injection -) 0.5 mg IVPUSH [id number] PRN PRN Reason: PAIN Stop: 04/26/17 13:01 Last Admin: 04/23/17 13:50 Dose: 0.5 mg Potassium Chloride/Dextrose/Sod Cl (D5-1/2ns+20 Meq Kcl -) 1,000 mls @ 100 mls/ hr IV ASDIR [facility] Last Admin: 04/23/17 21:19 Dose: 100 mls/hr Pantoprazole Sodium 80 mg/ (Sodium Chloride) 100 mls @ 10 mls/hr IVPB Q10H [facility] PRN Reason: 8 MG/HR Last Admin: 04/24/17 06:43 Dose: 10 mls/hr Morphine Sulfate (Morphine Injection -) 4 mg IVPB Q3H PRN PRN Reason: MODERATE PAIN Morphine Sulfate (Morphine Injection -) 2 mg IVPB Q3H PRN PRN Reason: PAIN Last Admin: 04/24/17 02:48 Dose: 2 mg Oxycodone HCl (Roxicodone -) 7.5 mg PO Q4H PRN PRN Reason: PAIN - Objective Vital Signs: Vital Signs Temperature 98.2 F 04/24/17 06:00 Pulse Rate 79 04/24/17 06:00 Respiratory Rate 20 04/24/17 06:00 Blood Pressure 119/50 04/24/17 06:00 O2 Sat by Pulse Oximetry (%) 100 04/23/17 21:00 Constitutional: Yes: No Distress, Calm Neck: Yes: Supple Cardiovascular: Yes: Regular Rate and Rhythm Respiratory: Yes: Regular, Diminished, On Nasal O2 Gastrointestinal: Yes: Soft, Hypoactive Bowel Sounds, Other (Post-op) Edema: No Labs: CBC, BMP 04/24/17 06:40 04/24/17 06:40 INR, PTT INR 1.20 (0.82-1.09) H 04/21/17 13:00 Problem List - Problems (1) Acute blood loss anemia Code(s): D62 - ACUTE POSTHEMORRHAGIC ANEMIA (2) Colon neoplasm Code(s): D49.0 - NEOPLASM OF UNSPECIFIED BEHAVIOR OF DIGESTIVE SYSTEM (3) GIB (gastrointestinal bleeding) Code(s): K92.2 - GASTROINTESTINAL HEMORRHAGE, UNSPECIFIED Qualifiers: GI bleed type/associated pathology: unspecified gastrointestinal hemorrhage type Qualified Code(s): K92.2 - Gastrointestinal hemorrhage, unspecified (4) Hypothyroidism Code(s): E03.9 - HYPOTHYROIDISM, UNSPECIFIED Qualifiers: Hypothyroidism type: unspecified Qualified Code(s): E03.9 - Hypothyroidism, unspecified (5) Adnexal mass Code(s): N94.9 - UNSP COND ASSOC W FEMALE GENITAL ORGANS AND MENSTRUAL CYCLE (6) S/P laparoscopic colectomy Code(s): Z90.49 - ACQUIRED ABSENCE OF OTHER SPECIFIED PARTS OF DIGESTIVE TRACT (7) Chronic kidney disease Code(s): N18.9 - CHRONIC KIDNEY DISEASE, UNSPECIFIED Qualifiers: Chronic kidney disease stage: stage 2 (mild) Qualified Code(s): N18.2 - Chronic kidney disease, stage 2 (mild) Assessment/Plan 1. Hepatic flexure colon caincer POD#1 laparoscopic right colectomy, tumor invading abd wall and adhesed to surface of duodenum and likely involving lymphatics and vascular 2. Left cystic adnexal mass post left oophorectomy POD#1 3. Microcytic anemia post transfusion 4. Hypothyroidism 5. Acute on CKD PLAN: 1. Follow CBC and transfuse PRBC as needed, IVF with monitor renal fxn 2. F/u pathology, CEA, staging work-up, likely will need adjuvant chemo 3. Routine post-op care, mojgan-op abx course, DVT prophylaxis
--- NOTE | 2017-04-24 10:25 | PN ---
Progress Note, Physician Chief Complaint: in bed has RUQ pain with moving; daughter at bedside; to do OOB with PT; still NPO; did not pass stools nor gas. - Current Medication List Current Medications: Active Medications Acetaminophen (Tylenol Suppository -) 650 mg HI Q4H PRN PRN Reason: FEVER OR PAIN Calcium Chloride (Calcium Chloride 10% -) 1 gm IVPB ONCE ONE Stop: 04/24/17 10:23 Enoxaparin Sodium (Lovenox -) 40 mg SQ BID [facility] Ertapenem (Invanz (Pre-Docked)) 1 gm IVPB DAILY [facility] Stop: 04/25/17 08:59 Hydromorphone HCl (Dilaudid Injection -) 0.5 mg IVPUSH [id number] PRN PRN Reason: PAIN Stop: 04/26/17 13:01 Last Admin: 04/23/17 13:50 Dose: 0.5 mg Potassium Chloride/Dextrose/Sod Cl (D5-1/2ns+20 Meq Kcl -) 1,000 mls @ 100 mls/ hr IV ASDIR [facility] Last Admin: 04/23/17 21:19 Dose: 100 mls/hr Pantoprazole Sodium 80 mg/ (Sodium Chloride) 100 mls @ 10 mls/hr IVPB Q10H [facility] PRN Reason: 8 MG/HR Last Admin: 04/24/17 06:43 Dose: 10 mls/hr Morphine Sulfate (Morphine Injection -) 4 mg IVPB Q3H PRN PRN Reason: MODERATE PAIN Morphine Sulfate (Morphine Injection -) 2 mg IVPB Q3H PRN PRN Reason: PAIN Last Admin: 04/24/17 02:48 Dose: 2 mg Oxycodone HCl (Roxicodone -) 7.5 mg PO Q4H PRN PRN Reason: PAIN - Objective Vital Signs: Vital Signs Temperature 98.2 F 04/24/17 06:00 Pulse Rate 79 04/24/17 06:00 Respiratory Rate 20 04/24/17 06:00 Blood Pressure 119/50 04/24/17 06:00 O2 Sat by Pulse Oximetry (%) 100 04/23/17 21:00 Constitutional: Yes: No Distress, Calm Eyes: Yes: Conjunctiva Clear HENT: Yes: Atraumatic Neck: Yes: Supple Cardiovascular: Yes: Regular Rate and Rhythm Respiratory: Yes: CTA Bilaterally Gastrointestinal: Yes: Soft, Tenderness (RUQ) Musculoskeletal: No: Joint Stiffness, Joint Swelling Extremities: No: Cold, Cool Edema: No Integumentary: No: Rash, Venous Stasis Changes Neurological: Yes: WNL, Alert, Oriented ...Motor Strength: WNL Psychiatric: Yes: WNL, Alert, Oriented. No: Agitated, Suicidal Ideation Labs: CBC, BMP 04/24/17 06:40 04/24/17 06:40 INR, PTT INR 1.20 (0.82-1.09) H 04/21/17 13:00 - ....Imaging Other: Report Reviewed Assessment/Plan 77 y/o F with a PMHx of hyperthyroidism, atelectasis of bilateral lungs, acute kidney injury presents to the ED via EMS dizziness and weakness. Severe anemia GI bleed, colonic mass probably colon CA s/p R hemicolectomy and partial oophorectomy cardiac, pulm and GI f/u check pathology Heme onc eval f/u labs d/w pt's daughter
--- NOTE | 2017-04-24 10:36 | PN ---
Progress Note (short form) - Note Progress Note: PULMONARY Denies shortness of breath or chest pain. c/o discomfort from NGT. Pain adequately controlled. Last Vital Signs Temp Pulse Resp BP Pulse Ox 98.2 F 79 20 119/50 100 04/24/17 06:00 04/24/17 06:00 04/24/17 06:00 04/24/17 06:00 04/23/17 21:00 Gen: NAD at rest Heart: RRR Lung: decreased breath sounds at the bases Abd:soft, appropriately tender, incisions clean Ext: no edema CBC, BMP 04/24/17 06:40 04/24/17 06:40 Active Medications Acetaminophen (Tylenol Suppository -) 650 mg [place] Q4H PRN PRN Reason: FEVER OR PAIN Calcium Chloride (Calcium Chloride 10% -) 1 gm IVPB ONCE ONE Stop: 04/24/17 10:23 Enoxaparin Sodium (Lovenox -) 40 mg SQ BID [facility] Ertapenem (Invanz (Pre-Docked)) 1 gm IVPB DAILY [facility] Stop: 04/25/17 08:59 Hydromorphone HCl (Dilaudid Injection -) 0.5 mg IVPUSH [id number] PRN PRN Reason: PAIN Stop: 04/26/17 13:01 Last Admin: 04/23/17 13:50 Dose: 0.5 mg Potassium Chloride/Dextrose/Sod Cl (D5-1/2ns+20 Meq Kcl -) 1,000 mls @ 100 mls/ hr IV ASDIR [facility] Last Admin: 04/23/17 21:19 Dose: 100 mls/hr Pantoprazole Sodium 80 mg/ (Sodium Chloride) 100 mls @ 10 mls/hr IVPB Q10H [facility] PRN Reason: 8 MG/HR Last Admin: 04/24/17 06:43 Dose: 10 mls/hr Morphine Sulfate (Morphine Injection -) 4 mg IVPB Q3H PRN PRN Reason: MODERATE PAIN Morphine Sulfate (Morphine Injection -) 2 mg IVPB Q3H PRN PRN Reason: PAIN Last Admin: 04/24/17 02:48 Dose: 2 mg Oxycodone HCl (Roxicodone -) 7.5 mg PO Q4H PRN PRN Reason: PAIN A/P Colon Cancer/Left Adnexal Mass s/p Laparoscopic Right Colectomy Anemia Acute on Chronic Renal Failure Hypothyroidism - f/u pathology - pain control - incentive spirometry - NGT per surgery - await return of bowel function - DVT prophylaxis
[2017-04-24] MEDS ORDERED: CALCIUM CHLORIDE 10% 1 GM/10 ML *VIAL IVPB ONE (11:15)
[2017-04-24] MEDS: D5-1/2NS+20 MEQ KCL - 1,000 ML IV SCH ×2 (11:20→22:00)
[2017-04-24] MEDS: morphine CARPU-JECT 4 MG/1 ML DISP.SYRIN IVPB PRN ×2 (11:22→18:14)
--- NOTE | 2017-04-24 11:27 | OP ---
DATE OF OPERATION: 04/23/2017 PREOPERATIVE DIAGNOSES: Large-bowel obstruction; right colonic mass, suspect carcinoma; complex left adnexal mass. POSTOPERATIVE DIAGNOSES: Large-bowel obstruction; right colonic mass, suspect carcinoma; complex left adnexal mass. PROCEDURE: Laparoscopic extended right hemicolectomy, resection of right adnexal mass, resection of portion of right upper abdominal wall, omental patch, peritoneal lavage. SURGEON: Michael Torres MD FLATWORK TIER: Eloy Herzog DO ANESTHESIA: Enrico Brady MD (general). ESTIMATED BLOOD LOSS: Minimal. SPECIMEN: None. OPERATIVE FINDINGS: 1. Large bulky tumor in the right colon at the level of the hepatic flexure. 2. Obvious growth beyond the serosa of the colon into the right upper abdominal wall. 3. Obvious bulky lymph nodes in the ileocolic and middle colic pedicles. 4. No obvious ascites. 5. No obvious peritoneal implants. 6. Cystic mass in the left adnexa region, consistent with a complex left ovarian cyst. DESCRIPTION OF OPERATIVE PROCEDURE: Patient identified and appropriately positioned on the operating room table. After placement of general anesthesia, the abdomen prepped and draped in the usual sterile fashion with ChloraPrep. A supraumbilical incision was made deep in the subcutaneous tissue. The fascia was divided sharply, the peritoneum incised, and under direct vision, a Veress needle followed by a structural needle placed. The remaining ports, all 5 mm, placed under direct vision. Upon placement of the laparoscope, grossly the liver appeared to be mildly cirrhotic (macronodular). There was an obvious bulky tumor adherent to the right upper abdominal wall. The mesentery to the right colon (the ileocolic and middle colic pedicles) contained bulky adenopathy. There was no obvious ascites, peritoneal implants. There was a large complex cystic mass in the left adnexa. The right colon was lifted to the anterior abdominal wall. What appeared to be the right colic pedicle was identified. This pedicle was completely thickened and bulky with what would be consistent with metastatic tumor into the lymph nodes. The peritoneum overlying the pedicle was incised. The lymph nodes were as best as possible down to the level of the vessels, and the vessels were serially ligated with the [employer] LigaSure device. Four welds placed prior to complete division. Some tumor due to the adenopathy had to be left in the vascular pedicle. The loose areolar plane, that is normally developed once this was divided overlying the duodenum, was not able to be developed easily due to this tumor. The tissue plane overlying the retroperitoneum and duodenum was edematous. The plane was bluntly. However, the duodenum could not be identified well at this point due to the large bulky mass that was encountered medially which appeared to be consistent with the right colic and middle colic bundles that was all encased in tumor. Given this finding, the colon now was rolled medially to the patient's left lower quadrant of the abdomen and the abdominal wall. The colon was clearly growing into the right upper abdominal wall. The portion of the abdominal wall was resected with the LigaSure device including the oblique musculature and transversus abdominis muscle. This was then taken down to the level of the white line of Toldt and coming from inferiorly and at the more-distal segment of the hepatic flexure. The 2 ends were then met and the colon off the abdominal wall. Due to the vascular issues that were encountered medially, the transverse colon now was from the gastrocolic ligament with LigaSure device. Again, this whole tissue plane was markedly edematous from the tumor. The mesentery of the transverse colon was identified, and the hepatic flexure was taken down in a similar fashion using the LigaSure device. Next, the transverse colon was lifted to the anterior abdominal wall, and the middle colic pedicle was identified more medial. The pedicle was left intact, and the left branch clearly was followed toward the distal segment of the transverse colon. The pedicle at the root of the mesentery was traced down to the level of the root, and the right branch was identified as well, and just at the takeoff of the right branch was noted to be a large amount of bulky adenopathy. The right branch was dissected bluntly as best off the adenopathy and taken with the LigaSure device. Again, 4 welds placed prior to complete division. Portions of the lymph node had to be left intact to separate out the right middle branch of the middle colic vessels. This was then directed more towards the right colic. That window had to be created from 2 sides most medially and from a lateral aspect. The window in that mesentery was marked thickened and consistent with tumor filled. This was divided with LigaSure device as well, and in doing this division and separation, the duodenum was followed and identified from the level of the pylorus around the first portion and second portion of the duodenum. The colon now rolled medially , and going from lateral to medial in this section, the colon was off the anterolateral aspect of the duodenum. Now, the colon was rolled laterally, and the medial dissection plane was then done in a similar fashion, dividing the thickened mesentery and peritoneal reflection off the duodenum. This was done sharply. Once the 2 windows were created, the right colic bundle identified along with a large amount of tumor. This was divided with LigaSure device. The left branch of the middle colic was left intact going to the distal segment of the transverse colon. The distal line of resection was grossly chosen to be approximately 5-6 inches away from the obvious end of the tumor. At this point, the mesenteric had been completely freed, and the gastrocolic completely freed to what I was going to use at the level of the distal line of resection. Next, the colon was completely freed off the white line of Toldt along with the appendix in the right pelvis with blunt and sharp dissection. The peritoneal attachment of the ileum in the pelvis was divided sharply to allow mobilization of the small bowel. Once this was accomplished, attention now focused to removing the left adnexal mass. The pelvis identified and there were adhesions of sigmoid colon to the left pelvis and left abdominal wall. These adhesions were taken down with the LigaSure device, and once the colon was freed off the left pelvic wall, the left adnexal mass was identified. The adnexal mass was plastered to the pelvic wall and with blunt dissection. The broad ligament identified and the anterior layer of the broad ligament was scored sharply, and in doing so, the ovarian vessels identified and serially taken off with the LigaSure device. Four welds placed prior to complete division. The complex mass was then rolled medially off the tube, and the plane between the mass and the tube was divided with the LigaSure device. Once that was accomplished, the suspensory ligament of the ovary medially was off the round ligament, and the specimen was then held with a grasper. The pelvis was then irrigated and the operative field examined, noted to be hemostatic. At this point, the camera port site was then extended inferiorly beyond the umbilicus. A wound protector placed. The wound was then subsequently draped off, and the complex ovarian mass was brought out through the wound protector and handed off as specimen, left complex adnexal mass. Then, the colon was brought out through the wound protector as well, as well as the portion of the ileum. Approximately a foot of the ileum was mobilized into the operative field, and the colon was mobilized to the level of the divided mesentery. The proximal line of resection was chosen approximately 7 inches from the ileocecal valve, and the distal line of resection was chosen approximately 5 inches from the obvious gross disease. The ileum was anastomosed to the transverse colon in a functional, modo-fo-gxke fashion with a JUAN 80, 3.8-mm stapler. The enterotomy closed with a TA 60, 3.8-mm stapler. The transverse staple line was oversewn with 3-0 silk Lembert sutures. The mesentery to the divided small bowel was taken with LigaSure device. Again, 4 welds were placed prior to complete division. Next, a portion of the omentum was mobilized over the transverse oversewn staple line and anchored with interrupted 3-0 silk sutures as an omental patch. This was a pedicle patch with the vascular supply left intact. The bowel proximal and distal to the anastomosis was pink and viable grossly. There was no misfire, and the bobby were all intact. There was a good 2-1/2 to 3 fingerbreadths' opening. The bowel returned now to its anatomic position. The duodenum examined and noted to be grossly without violation. The pedicles that were taken were hemostatic as well. At this point, the drape, re-draping, and wound protector were removed. Surgeon and welder first class changed gown and gloves, as well as suction and Bovie tip. The abdomen was then copiously irrigated with warm saline. Approximately 5 L were used. The operative field examined and noted to be hemostatic. During the anastomosis of the ileum to the transverse colon, the distal transverse colon had liquid greenish stool. This was suctioned and locally lavaged with dilute 50% Betadine. The operative field examined once again, noted to be hemostatic. Where the abdominal wall was resected, the edges had Covidien clips applied so that it may help if radiation is to be given. The midline fascia was reapproximated with interrupted No. 1 PDS suture. The subcutaneous space irrigated, and the skin was left open since this was a contaminated case and the bowel was not prepped well due to its large-bowel obstruction. At the conclusion of this case, sponge and needle counts were correct. ATTESTATION: A brief operative note handwritten on the preprinted form. [facility] queried prior to giving any narcotics. Roberto BENNETT [id number] cc: MD Eddie Velasquez MD MTDD
[2017-04-24] MEDS: ERTAPENEM SODIUM 1 GM/50 ML PRE-DOCKED IVPB SCH ×2 (12:03→12:06)
--- NOTE | 2017-04-24 21:14 | PN ---
Progress Note (short form) - Note Progress Note: Patient seen and examined Feels OK AFVSS Cor: RSR, No murmurs, No gallops Lungs: Clear to P&A Abd: Soft, Normal bowel sounds, No organomegaly Ext:No significant edema Skin: No rashes, Integument intact Abnormal Lab Results 04/21/17 04/25/17 04/25/17 13:04 06:15 06:15 WBC 12.8 H RBC 3.48 L Hgb 9.5 L Hct 29.1 L RDW 23.6 H MPV 7.4 L Neutrophils % 91.3 H Lymphocytes % 3.2 L Chloride 110 H Anion Gap 7 L Creatinine 1.3 H Random Glucose 133 H Calcium 7.6 L Alkaline Phosphatase 121 H Total Protein 5.2 L Albumin 1.8 L Crossmatch See Detail Active Medications Generic Name Dose Route Start Last Admin Trade Name Freq PRN Reason Stop Dose Admin Acetaminophen 650 mg 04/23/17 12:32 Tylenol Suppository - [place] Q4H PRN FEVER OR PAIN Enoxaparin Sodium 40 mg 04/25/17 10:00 04/25/17 09:13 Lovenox - SQ 40 mg BID KARL Administration Hydromorphone HCl 0.5 mg 04/23/17 13:00 04/23/17 13:50 Dilaudid Injection - IVPUSH 04/26/17 13:01 0.5 mg [id number] PRN Administration PAIN Potassium Chloride/Dextrose/Sod Cl 1,000 mls @ 100 mls/hr 04/23/17 12:30 08:38 D5-1/2ns+20 Meq Kcl - IV 100 mls/hr ASDIR KARL Administration Pantoprazole Sodium 80 mg/ 100 mls @ 10 mls/hr 04/23/17 21:00 04/25/17 03:05 Sodium Chloride IVPB 10 mls/hr Q10H KARL Administration 8 MG/HR Morphine Sulfate 4 mg 04/23/17 12:27 04/24/17 18:14 Morphine Injection - IVPB 4 mg Q3H PRN Administration MODERATE PAIN Morphine Sulfate 2 mg 04/23/17 22:12 04/25/17 09:12 Morphine Injection - IVPB 2 mg Q3H PRN Administration PAIN Oxycodone HCl 7.5 mg 04/23/17 12:27 Roxicodone - PO Q4H PRN PAIN A/P 77 y/o patient with iron deficiency anemia, CKD, rt. hemicolectomy for colonic mass suspect T4b, node+ await final path PD no. 1 ambulatory
[2017-04-25] MEDS: PANTOPRAZOLE SODIUM 80 MG in SODIUM CHLORIDE 100 ML IVPB SCH ×3 (03:05→22:57)
[2017-04-25 07:12] LABS: BASOPHIL 0.1 % (0-2.0); EOSINOPHIL 0.3 % (0-4.5); MCH 27.3 pg (25.7-33.7); MCHC 32.7 g/dl (32.0-36.0); MEAN CELL VOLUME 83.5 fl (80-96); MEAN PLT VOLUME 7.4 fl (7.5-11.1); NEUTROPHILS 91.3 % (42.8-82.8); PLATELET COUNT 179 K/MM3 (134-434); RDW 23.6 % (11.6-15.6); WHITE BLOOD COUNT 12.8 K/mm3 (4.0-10.0)
[2017-04-25 07:30] LABS: ALBUMIN 1.8 g/dl (3.4-5.0); ANION GAP 7 (8-16); CALCIUM 7.6 mg/dL (8.5-10.1); CO2 21 mmol/L (21-32)
[2017-04-25 07:34] LABS: ALK PHOS 121 U/L (45-117); BILIRUBIN,TOTAL 0.6 mg/dL (0.2-1.0); CREATININE 1.3 mg/dL (0.55-1.02); SGOT/AST 19 U/L (15-37); SGPT/ALT 12 U/L (12-78); TOT PROT 5.2 g/dl (6.4-8.2)
[2017-04-25 07:35] LABS: GLUCOSE,RANDOM 133 mg/dL (74-106)
[2017-04-25] MEDS: D5-1/2NS+20 MEQ KCL - 1,000 ML IV SCH ×3 (08:38→23:30)
[2017-04-25] MEDS: morphine CARPU-JECT 2 MG/1 ML DISP.SYRIN IVPB PRN ×3 (09:12→19:46)
--- NOTE | 2017-04-25 09:28 | PN ---
Progress Note, Physician Chief Complaint: in bed still with RUQ pain; NPO, did not pass gas yet Braga removed was OOB with PT but has abdominal pain when moving - Current Medication List Current Medications: Active Medications Acetaminophen (Tylenol Suppository -) 650 mg [place] Q4H PRN PRN Reason: FEVER OR PAIN Enoxaparin Sodium (Lovenox -) 40 mg SQ BID [facility] Last Admin: 04/25/17 09:13 Dose: 40 mg Hydromorphone HCl (Dilaudid Injection -) 0.5 mg IVPUSH [id number] PRN PRN Reason: PAIN Stop: 04/26/17 13:01 Last Admin: 04/23/17 13:50 Dose: 0.5 mg Potassium Chloride/Dextrose/Sod Cl (D5-1/2ns+20 Meq Kcl -) 1,000 mls @ 100 mls/ hr IV ASDIR [facility] Last Admin: 04/25/17 08:38 Dose: 100 mls/hr Pantoprazole Sodium 80 mg/ (Sodium Chloride) 100 mls @ 10 mls/hr IVPB Q10H KARL PRN Reason: 8 MG/HR Last Admin: 04/25/17 03:05 Dose: 10 mls/hr Morphine Sulfate (Morphine Injection -) 4 mg IVPB Q3H PRN PRN Reason: MODERATE PAIN Last Admin: 04/24/17 18:14 Dose: 4 mg Morphine Sulfate (Morphine Injection -) 2 mg IVPB Q3H PRN PRN Reason: PAIN Last Admin: 04/25/17 09:12 Dose: 2 mg Oxycodone HCl (Roxicodone -) 7.5 mg PO Q4H PRN PRN Reason: PAIN - Objective Vital Signs: Vital Signs Temperature 98 F 04/25/17 08:00 Pulse Rate 97 H 04/25/17 08:00 Respiratory Rate 18 04/25/17 08:00 Blood Pressure 158/60 04/25/17 08:00 O2 Sat by Pulse Oximetry (%) 100 04/24/17 21:00 Constitutional: Yes: No Distress Eyes: Yes: Conjunctiva Clear HENT: Yes: Atraumatic Neck: Yes: Supple Cardiovascular: Yes: Regular Rate and Rhythm Respiratory: Yes: CTA Bilaterally Gastrointestinal: Yes: Soft Musculoskeletal: No: Joint Stiffness, Joint Swelling Extremities: No: Cold, Cool, Cyanosis Edema: No Integumentary: No: Rash, Venous Stasis Changes Neurological: Yes: WNL, Alert, Oriented ...Motor Strength: WNL Psychiatric: Yes: WNL, Alert, Oriented. No: Agitated, Suicidal Ideation Labs: CBC, BMP 04/25/17 06:15 04/25/17 06:15 INR, PTT INR 1.20 (0.82-1.09) H 04/21/17 13:00 - ....Imaging Other: Report Reviewed Assessment/Plan 77 y/o F with a PMHx of hyperthyroidism, atelectasis of bilateral lungs, acute kidney injury presents to the ED via EMS dizziness and weakness. Severe anemia GI bleed, colonic mass probably colon CA s/p R hemicolectomy and partial oophorectomy cardiac, pulm and GI f/u check pathology Heme onc eval f/u labs d/w pt's daughter
[2017-04-25] MEDS ORDERED: ENOXAPARIN NA (PORCINE) 40 MG/0.4 ML DISP.SYRIN SQ SCH (10:00)
--- NOTE | 2017-04-25 10:59 | PN ---
Progress Note (short form) - Note Progress Note: surgery pt seen and examined. still sore on right side. ambulating. no flatus. no nausea afebrile u/o 1000 abd- soft, expected right sided muscular tenderness, incision clean, mild distension, Laboratory Tests 04/25/ 06:15 WBC 12.8 H A/P 1) pod #2- cont npo. cont ivf, d/c garcia 2) pain- dilaudid, 3) prophylaxis- protonix, lovenox, oob 4) likey colon ca- suspect t4, node positive- follow path 5) low albumin, malnutrition- increased risk of leak. would not start tpn as likely to start diet in next 2-4 days and risk > benefit
--- NOTE | 2017-04-25 11:57 | PN ---
Progress Note (short form) - Note Progress Note: Patient seen and examined Sitting in a chair. Bowel fn not returned yet, POD#2 remains NPO. Seen by Surgery Has soreness in the abdomen AFVSS Cor: RSR, No murmurs, No gallops Lungs: Clear to P&A Ext:No significant edema Skin: No rashes, Integument intact Temp Pulse Resp BP Pulse Ox 98 F 97 H 18 158/60 100 04/25/17 08:00 04/25/17 08:00 04/25/17 08:00 04/25/17 08:00 04/24/17 21:00 CBC, BMP 04/25/17 06:15 04/25/17 06:15 Current Medications Generic Name Dose Route Start Last Admin Trade Name Freq PRN Reason Stop Dose Admin Acetaminophen 650 mg 04/23/17 12:32 Tylenol Suppository - [place] Q4H PRN FEVER OR PAIN Enoxaparin Sodium 40 mg 04/25/17 10:00 04/25/17 09:13 Lovenox - SQ 40 mg BID KARL Administration Hydromorphone HCl 0.5 mg 04/23/17 13:00 04/23/17 13:50 Dilaudid Injection - IVPUSH 04/26/17 13:01 0.5 mg [id number] PRN Administration PAIN Potassium Chloride/Dextrose/Sod Cl 1,000 mls @ 100 mls/hr 04/23/17 12:30 08:38 D5-1/2ns+20 Meq Kcl - IV 100 mls/hr ASDIR KARL Administration Pantoprazole Sodium 80 mg/ 100 mls @ 10 mls/hr 04/23/17 21:00 04/25/17 03:05 Sodium Chloride IVPB 10 mls/hr Q10H KARL Administration 8 MG/HR Morphine Sulfate 4 mg 04/23/17 12:27 04/24/17 18:14 Morphine Injection - IVPB 4 mg Q3H PRN Administration MODERATE PAIN Morphine Sulfate 2 mg 04/23/17 22:12 04/25/17 09:12 Morphine Injection - IVPB 2 mg Q3H PRN Administration PAIN Oxycodone HCl 7.5 mg 04/23/17 12:27 Roxicodone - PO Q4H PRN PAIN Assessment/Plan: Likely Stage III Colon ca, await final path POD#2. Anemia from colon ca. -will need adjuvant therapy once discharged, yet to discuss with the pt, will await the final pathology -CEA reviewed, not high. -staging w/u , last CT chest was from 03/18. -appreciate surgery consult -she states that she walked in the hallway yesterday -DVT ppx -d/c jose today
--- NOTE | 2017-04-25 14:33 | PN ---
Progress Note, Physician History of Present Illness: Incisional discomfort, no flatus yet, NGT d/doe. - Current Medication List Current Medications: Active Medications Acetaminophen (Tylenol Suppository -) 650 mg [place] Q4H PRN PRN Reason: FEVER OR PAIN Enoxaparin Sodium (Lovenox -) 40 mg SQ BID [facility] Last Admin: 04/25/17 09:13 Dose: 40 mg Hydromorphone HCl (Dilaudid Injection -) 0.5 mg IVPUSH [id number] PRN PRN Reason: PAIN Stop: 04/26/17 13:01 Last Admin: 04/23/17 13:50 Dose: 0.5 mg Potassium Chloride/Dextrose/Sod Cl (D5-1/2ns+20 Meq Kcl -) 1,000 mls @ 100 mls/ hr IV ASDIR [facility] Last Admin: 04/25/17 08:38 Dose: 100 mls/hr Pantoprazole Sodium 80 mg/ (Sodium Chloride) 100 mls @ 10 mls/hr IVPB Q10H KARL PRN Reason: 8 MG/HR Last Admin: 04/25/17 13:19 Dose: 10 mls/hr Morphine Sulfate (Morphine Injection -) 4 mg IVPB Q3H PRN PRN Reason: MODERATE PAIN Last Admin: 04/24/17 18:14 Dose: 4 mg Morphine Sulfate (Morphine Injection -) 2 mg IVPB Q3H PRN PRN Reason: PAIN Last Admin: 04/25/17 12:21 Dose: 2 mg Oxycodone HCl (Roxicodone -) 7.5 mg PO Q4H PRN PRN Reason: PAIN - Objective Vital Signs: Vital Signs Temperature 98 F 04/25/17 08:00 Pulse Rate 97 H 04/25/17 08:00 Respiratory Rate 18 04/25/17 08:00 Blood Pressure 158/60 04/25/17 08:00 O2 Sat by Pulse Oximetry (%) 96 04/25/17 09:00 Constitutional: Yes: No Distress, Calm Neck: Yes: Supple Cardiovascular: Yes: Regular Rate and Rhythm Respiratory: Yes: Regular, Diminished Gastrointestinal: Yes: Soft, Hypoactive Bowel Sounds Edema: No Labs: CBC, BMP 04/25/17 06:15 04/25/17 06:15 INR, PTT INR 1.20 (0.82-1.09) H 04/21/17 13:00 Problem List - Problems (1) Acute blood loss anemia Code(s): D62 - ACUTE POSTHEMORRHAGIC ANEMIA (2) Colon neoplasm Code(s): D49.0 - NEOPLASM OF UNSPECIFIED BEHAVIOR OF DIGESTIVE SYSTEM (3) GIB (gastrointestinal bleeding) Code(s): K92.2 - GASTROINTESTINAL HEMORRHAGE, UNSPECIFIED Qualifiers: GI bleed type/associated pathology: unspecified gastrointestinal hemorrhage type Qualified Code(s): K92.2 - Gastrointestinal hemorrhage, unspecified (4) Hypothyroidism Code(s): E03.9 - HYPOTHYROIDISM, UNSPECIFIED Qualifiers: Hypothyroidism type: unspecified Qualified Code(s): E03.9 - Hypothyroidism, unspecified (5) Adnexal mass Code(s): N94.9 - UNSP COND ASSOC W FEMALE GENITAL ORGANS AND MENSTRUAL CYCLE (6) S/P laparoscopic colectomy Code(s): Z90.49 - ACQUIRED ABSENCE OF OTHER SPECIFIED PARTS OF DIGESTIVE TRACT (7) Chronic kidney disease Code(s): N18.9 - CHRONIC KIDNEY DISEASE, UNSPECIFIED Qualifiers: Chronic kidney disease stage: stage 2 (mild) Qualified Code(s): N18.2 - Chronic kidney disease, stage 2 (mild) Assessment/Plan 1. Hepatic flexure colon caincer POD#2 laparoscopic right colectomy, tumor invading abd wall and adhesed to surface of duodenum and likely involving lymphatics and vascular 2. Left cystic adnexal mass post left oophorectomy POD#2 3. Microcytic anemia post transfusion 4. Hypothyroidism 5. Acute on CKD PLAN: 1. Follow CBC and transfuse PRBC as needed, IVF with monitor renal fxn, replete K 2. F/u pathology, staging work-up, likely will need adjuvant chemo 3. Routine post-op care, analgesia as needed DVT prophylaxis, await return of bowel function, early ambulation
[2017-04-26] MEDS: morphine CARPU-JECT 2 MG/1 ML DISP.SYRIN IVPB PRN (01:07)
[2017-04-26 08:02] LABS: BASOPHIL 0.4 % (0-2.0); MCHC 32.8 g/dl (32.0-36.0); MEAN CELL VOLUME 82.3 fl (80-96); MEAN PLT VOLUME 8.4 fl (7.5-11.1); NEUTROPHILS 91.6 % (42.8-82.8); PLATELET COUNT 177 K/MM3 (134-434); WHITE BLOOD COUNT 13.4 K/mm3 (4.0-10.0)
[2017-04-26] MEDS: PANTOPRAZOLE SODIUM 80 MG in SODIUM CHLORIDE 100 ML IVPB SCH ×2 (08:08→19:59)
[2017-04-26] MEDS: D5-1/2NS+20 MEQ KCL - 1,000 ML IV SCH ×2 (08:12→19:59)
[2017-04-26 08:40] LABS: ALBUMIN 1.5 g/dl (3.4-5.0); ALK PHOS 117 U/L (45-117); ANION GAP 7 (8-16); BILIRUBIN,TOTAL 1.4 mg/dL (0.2-1.0); CALCIUM 7.1 mg/dL (8.5-10.1); CO2 20 mmol/L (21-32); CREATININE 1.2 mg/dL (0.55-1.02); GLUCOSE,RANDOM 122 mg/dL (74-106); MAGNESIUM 1.9 mg/dL (1.8-2.4); SGOT/AST 18 U/L (15-37); SGPT/ALT 11 U/L (12-78); TOT PROT 4.9 g/dl (6.4-8.2)
--- NOTE | 2017-04-26 09:11 | PN ---
Progress Note (short form) - Note Progress Note: surgery pt seen and examined. still sore on right side. ambulated yesterday. some flatus. no nausea. only pain with movement. had some hallucinations last night afebrile abd- soft, expected right sided muscular tenderness, incision clean, mild distension, soft in all 4 quadrants Laboratory Tests 04/26/ 07:00 WBC 13.4 H A/P 1) pod #3- cont npo. cont ivf, garcia replaced for retention, will remove again and try again 2) pain- hold narcotics, only tylenol 3) prophylaxis- protonix, lovenox, oob 4) likey colon ca- suspect t4, node positive- follow path 5) low albumin, malnutrition- increased risk of leak. would not start tpn as likely to start diet in next 2-4 days and risk > benefit
[2017-04-26] MEDS: ENOXAPARIN NA (PORCINE) 40 MG/0.4 ML DISP.SYRIN SQ SCH (09:34)
--- NOTE | 2017-04-26 11:20 | PN ---
Progress Note, Physician Chief Complaint: still has abdominal pain with moving, to remove Braga and watch for urinary retention daughter at bedside; pt still NPO - Current Medication List Current Medications: Active Medications Acetaminophen (Tylenol Suppository -) 650 mg [place] Q4H PRN PRN Reason: FEVER OR PAIN Enoxaparin Sodium (Lovenox -) 40 mg SQ DAILY [facility] Last Admin: 04/26/17 09:34 Dose: 40 mg Potassium Chloride/Dextrose/Sod Cl (D5-1/2ns+20 Meq Kcl -) 1,000 mls @ 100 mls/ hr IV ASDIR KARL Last Admin: 04/26/17 08:12 Dose: 100 mls/hr Pantoprazole Sodium 80 mg/ (Sodium Chloride) 100 mls @ 10 mls/hr IVPB Q10H KARL PRN Reason: 8 MG/HR Last Admin: 04/26/17 08:08 Dose: 10 mls/hr - Objective Vital Signs: Vital Signs Temperature 98 F 04/26/17 08:00 Pulse Rate 83 04/26/17 08:00 Respiratory Rate 18 04/26/17 08:00 Blood Pressure 142/61 04/26/17 08:00 O2 Sat by Pulse Oximetry (%) 98 04/26/17 09:00 Constitutional: Yes: No Distress Eyes: Yes: Conjunctiva Clear HENT: Yes: Atraumatic Neck: Yes: Supple Cardiovascular: Yes: Regular Rate and Rhythm Respiratory: Yes: CTA Bilaterally Gastrointestinal: Yes: Soft, Tenderness (with palpation). No: Distention Genitourinary: No: CVA Tenderness - Left, CVA Tenderness - Right Musculoskeletal: Yes: Joint Stiffness. No: Joint Swelling Extremities: No: Cold, Cool, Cyanosis Edema: No Integumentary: No: Rash, Venous Stasis Changes Neurological: Yes: WNL, Alert, Oriented ...Motor Strength: WNL Psychiatric: Yes: WNL, Alert, Oriented. No: Agitated, Suicidal Ideation Labs: CBC, BMP 04/26/17 07:00 04/26/17 07:00 INR, PTT INR 1.20 (0.82-1.09) H 04/21/17 13:00 - ....Imaging Other: Report Reviewed Assessment/Plan 77 y/o F with a PMHx of hyperthyroidism, atelectasis of bilateral lungs, acute kidney injury presents to the ED via EMS dizziness and weakness. Severe anemia GI bleed, colonic mass probably colon CA s/p R hemicolectomy and partial oophorectomy cardiac, pulm and GI f/u check pathology f/u labs d/w pt's daughter
--- NOTE | 2017-04-26 11:48 | PN ---
Progress Note (short form) - Note Progress Note: Chief Complaint: Events noted, notes reviewed, Sitting in a chair complaining of incision discomfort, denies any chest discomfort or dyspnea History of Present Illness: Seen and examined. Events noted, notes reviewed, Sitting in a chair complaining of incision discomfort, denies any chest discomfort or dyspnea Medications: Current Medications Acetaminophen (Tylenol Suppository -) 650 mg [place] Q4H PRN PRN Reason: FEVER OR PAIN Enoxaparin Sodium (Lovenox -) 40 mg SQ DAILY [facility] Last Admin: 04/26/17 09:34 Dose: 40 mg Potassium Chloride/Dextrose/Sod Cl (D5-1/2ns+20 Meq Kcl -) 1,000 mls @ 100 mls/ hr IV ASDIR [facility] Last Admin: 04/26/17 08:12 Dose: 100 mls/hr Pantoprazole Sodium 80 mg/ (Sodium Chloride) 100 mls @ 10 mls/hr IVPB Q10H [facility] PRN Reason: 8 MG/HR Last Admin: 04/26/17 08:08 Dose: 10 mls/hr Vital Signs: Last Vital Signs Temp Pulse Resp BP Pulse Ox 98 F 83 18 142/61 98 04/26/17 08:00 04/26/17 08:00 04/26/17 08:00 04/26/17 08:00 04/26/17 09:00 Intake & Output 04/23/17 04/24/17 04/25/17 04/26/17 23:59 23:59 23:59 23:59 Intake Total 1100 1490 2770 100 Output Total 450 1000 1602 900 Balance 898 513 1822 -800 Neck: Supple Negative JVD No Bruit Respiratory: Diminished Breath Sounds at the Bases Cardiovascular: S1 S2 Regular Rate Rhythm Gastrointestinal: Soft Benign Hypoactive Bowel Sounds Ext: No Edema Labs: CBC, BMP 04/26/17 07:00 04/26/17 07:00 INR, PTT INR 1.20 (0.82-1.09) H 04/21/17 13:00 Assessment/Plan ASSESSMENT: 1. Hepatic flexure colon carcinoma stage III, POD#3, post laparoscopic right colectomy 2. Left cystic adnexal mass post left oophorectomy POD#3 3. Anemia post transfusion 4. Hypothyroidism 5. Acute on CKD PLAN: 1. Pain management as per primary team 2. DVT prophylaxis 3. Adjuvant chemotherapy as per oncology service pending staging Dania Gerard M.D.
--- NOTE | 2017-04-26 12:19 | PN ---
Progress Note (short form) - Note Progress Note: Patient seen and examined Sitting in a chair. Bowel fn not returned yet, POD#3 remains NPO. Seen by Surgery continues to have soreness in the abdomen walked today +hallucinations post morphine administration AFVSS Cor: RSR, No murmurs, No gallops Lungs: Clear to P&A Ext:No significant edema Skin: No rashes, Integum Last Vital Signs Temp Pulse Resp BP Pulse Ox 98 F 83 18 142/61 98 04/26/17 08:00 04/26/17 08:00 04/26/17 08:00 04/26/17 08:00 04/26/17 09:00 CBC, BMP 04/26/17 07:00 04/26/17 07:00 Current Medications Generic Name Dose Route Start Last Admin Trade Name Freq PRN Reason Stop Dose Admin Acetaminophen 650 mg 04/23/17 12:32 Tylenol Suppository - [place] Q4H PRN FEVER OR PAIN Enoxaparin Sodium 40 mg 04/26/17 10:00 04/26/17 09:34 Lovenox - SQ 40 mg DAILY [facility] Administration Potassium Chloride/Dextrose/Sod Cl 1,000 mls @ 100 mls/hr 04/23/17 12:30 08:12 D5-1/2ns+20 Meq Kcl - IV 100 mls/hr ASDIR [facility] Administration Pantoprazole Sodium 80 mg/ 100 mls @ 10 mls/hr 04/23/17 21:00 04/26/17 08:08 Sodium Chloride IVPB 10 mls/hr Q10H [facility] Administration 8 MG/HR Assessment/Plan: Likely Stage III Colon ca, await final path POD#2. Anemia from colon ca. -discuss chemo once recovers -will consider to repeat CT imaging ( CT chest) once more stable, last from no evidence of jarrod involvement. -pain control, did not want percocet/morphine, Tylenol extra strength. -await return of normal bowel function, garcia back in as failed TOV -rest management per primary team -discussed with family at bedside
[2017-04-27] MEDS: PANTOPRAZOLE SODIUM 80 MG in SODIUM CHLORIDE 100 ML IVPB SCH ×2 (05:49→14:23)
[2017-04-27] MEDS: D5-1/2NS+20 MEQ KCL - 1,000 ML IV SCH ×2 (05:49→17:58)
[2017-04-27 07:32] LABS: BASOPHIL 0.2 % (0-2.0); EOSINOPHIL 1.1 % (0-4.5); MCH 27.6 pg (25.7-33.7); MCHC 33.7 g/dl (32.0-36.0); MEAN CELL VOLUME 81.7 fl (80-96); MEAN PLT VOLUME 8.3 fl (7.5-11.1); PLATELET COUNT 173 K/MM3 (134-434); RDW 24.1 % (11.6-15.6); WHITE BLOOD COUNT 10.7 K/mm3 (4.0-10.0)
--- NOTE | 2017-04-27 07:56 | PN ---
Progress Note (short form) - Note Progress Note: surgery pt seen and examined. feels better. small flatus. afebrile abd- soft, minimal right sided tenderness, much improved Laboratory Tests 04/27/17 06:30 WBC 10.7 H A/P 1) pod #4- cont npo. cont ivf, garcia still in for retention, will remove again and try again 2) pain- only tylenol 3) prophylaxis- protonix, lovenox, oob 4) likey colon ca- suspect t4, node positive- follow path 5) low albumin, malnutrition- increased risk of leak. would not start tpn as likely to start diet in next 2-4 days and risk > benefit
[2017-04-27 08:02] LABS: ANION GAP 10 (8-16); CALCIUM 7.3 mg/dL (8.5-10.1); CO2 18 mmol/L (21-32); CREATININE 1.1 mg/dL (0.55-1.02); GLUCOSE,RANDOM 127 mg/dL (74-106); MAGNESIUM 1.8 mg/dL (1.8-2.4)
--- NOTE | 2017-04-27 09:08 | PN ---
Progress Note, Physician Chief Complaint: in bed awake alert NAD; could not urinate so Braga reinserted; passed gas but no stool; still NPO - Current Medication List Current Medications: Active Medications Acetaminophen (Tylenol Suppository -) 650 mg [place] Q4H PRN PRN Reason: FEVER OR PAIN Acetaminophen (Tylenol -) 650 mg PO Q4H PRN PRN Reason: FEVER OR PAIN Enoxaparin Sodium (Lovenox -) 40 mg SQ DAILY [facility] Last Admin: 04/26/17 09:34 Dose: 40 mg Potassium Chloride/Dextrose/Sod Cl (D5-1/2ns+20 Meq Kcl -) 1,000 mls @ 100 mls/ hr IV ASDIR [facility] Last Admin: 04/27/17 05:49 Dose: 100 mls/hr Pantoprazole Sodium 80 mg/ (Sodium Chloride) 100 mls @ 10 mls/hr IVPB Q10H [facility] PRN Reason: 8 MG/HR Last Admin: 04/27/17 05:49 Dose: 10 mls/hr - Objective Vital Signs: Vital Signs Temperature 97.9 F 04/27/17 07:33 Pulse Rate 78 04/27/17 07:33 Respiratory Rate 18 04/27/17 07:33 Blood Pressure 130/58 04/27/17 07:33 O2 Sat by Pulse Oximetry (%) 98 04/26/17 21:00 Constitutional: Yes: No Distress Eyes: Yes: Conjunctiva Clear HENT: Yes: Atraumatic Neck: Yes: Supple Cardiovascular: Yes: Regular Rate and Rhythm Respiratory: Yes: CTA Bilaterally Gastrointestinal: Yes: Soft. No: Distention Genitourinary: No: CVA Tenderness - Left, CVA Tenderness - Right Musculoskeletal: No: Joint Stiffness, Joint Swelling Extremities: No: Cold, Cool, Cyanosis Edema: No Integumentary: No: Rash, Venous Stasis Changes Neurological: Yes: WNL, Alert, Oriented ...Motor Strength: WNL Psychiatric: Yes: WNL, Alert, Oriented. No: Agitated, Suicidal Ideation Labs: CBC, BMP 04/27/17 06:30 04/27/17 06:30 INR, PTT INR 1.20 (0.82-1.09) H 04/21/17 13:00 - ....Imaging Other: Report Reviewed Assessment/Plan 77 y/o F with a PMHx of hyperthyroidism, atelectasis of bilateral lungs, acute kidney injury presents to the ED via EMS dizziness and weakness. Severe anemia GI bleed, colonic mass probably colon CA s/p R hemicolectomy and partial oophorectomy cardiac, pulm and GI f/u check pathology f/u labs d/w pt's daughter
--- NOTE | 2017-04-27 09:31 | PN ---
Progress Note (short form) - Note Progress Note: Chief Complaint: Events noted, notes reviewed, resting in bed, complaining of incision discomfort severity of which has decreased, denies any chest discomfort or dyspnea History of Present Illness: Seen and examined. Events noted, notes reviewed, resting in bed, complaining of incision discomfort severity of which has decreased, denies any chest discomfort or dyspnea Medications: Current Medications Acetaminophen (Tylenol Suppository -) 650 mg [place] Q4H PRN PRN Reason: FEVER OR PAIN Acetaminophen (Tylenol -) 650 mg PO Q4H PRN PRN Reason: FEVER OR PAIN Enoxaparin Sodium (Lovenox -) 40 mg SQ DAILY [facility] Last Admin: 04/26/17 09:34 Dose: 40 mg Potassium Chloride/Dextrose/Sod Cl (D5-1/2ns+20 Meq Kcl -) 1,000 mls @ 100 mls/ hr IV ASDIR [facility] Last Admin: 04/27/17 05:49 Dose: 100 mls/hr Pantoprazole Sodium 80 mg/ (Sodium Chloride) 100 mls @ 10 mls/hr IVPB Q10H [facility] PRN Reason: 8 MG/HR Last Admin: 04/27/17 05:49 Dose: 10 mls/hr Vital Signs: Last Vital Signs Temp Pulse Resp BP Pulse Ox 97.9 F 78 18 130/58 98 04/27/17 07:33 04/27/17 07:33 04/27/17 07:33 04/27/17 07:33 04/26/17 21:00 Intake & Output 04/24/17 04/25/17 04/26/17 04/27/17 23:59 23:59 23:59 23:59 Intake Total 1490 2770 100 1320 Output Total 1000 1602 1625 100 Balance 490 1168 -1525 1220 Neck: Supple Negative JVD No Bruit Respiratory: Diminished Breath Sounds at the Bases Cardiovascular: S1 S2 Regular Rate Rhythm Gastrointestinal: Soft Benign Hypoactive Bowel Sounds Ext: No Edema Labs: CBC, BMP 04/27/17 06:30 04/27/17 06:30 INR, PTT INR 1.20 (0.82-1.09) H 04/21/17 13:00 Assessment/Plan ASSESSMENT: 1. Hepatic flexure colon carcinoma stage III, POD#4, post laparoscopic right colectomy 2. Left cystic adnexal mass post left oophorectomy POD#4 3. Anemia post transfusion 4. Hypothyroidism 5. Acute on CKD PLAN: 1. Pain management as per primary team 2. DVT prophylaxis 3. Adjuvant chemotherapy as per oncology service pending staging Dania Gerard M.D.
[2017-04-27 10:11] LABS: ANISOCYTOSIS 2+; MACROCYTOSIS 1+
[2017-04-27] MEDS: ENOXAPARIN NA (PORCINE) 40 MG/0.4 ML DISP.SYRIN SQ SCH (10:46)
[2017-04-27] MEDS: ACETAMINOPHEN 325 MG TABLET (FP) PO PRN (13:49)
[2017-04-28] MEDS: PANTOPRAZOLE SODIUM 80 MG in SODIUM CHLORIDE 100 ML IVPB SCH ×2 (02:00→10:19)
[2017-04-28 08:38] LABS: BASOPHIL 0.2 % (0-2.0); EOSINOPHIL 1.3 % (0-4.5); MCH 26.6 pg (25.7-33.7); MCHC 32.8 g/dl (32.0-36.0); MEAN CELL VOLUME 81.2 fl (80-96); MEAN PLT VOLUME 7.6 fl (7.5-11.1); NEUTROPHILS 87.1 % (42.8-82.8); PLATELET COUNT 269 K/MM3 (134-434); RDW 24.4 % (11.6-15.6); WHITE BLOOD COUNT 13.6 K/mm3 (4.0-10.0)
[2017-04-28 09:07] LABS: ANION GAP 9 (8-16); CALCIUM 7.5 mg/dL (8.5-10.1); CO2 19 mmol/L (21-32); CREATININE 1.3 mg/dL (0.55-1.02); GLUCOSE,RANDOM 109 mg/dL (74-106); MAGNESIUM 1.8 mg/dL (1.8-2.4); PHOSPHOROUS 2.8 mg/dL (2.5-4.9)
--- NOTE | 2017-04-28 09:38 | PN ---
Progress Note, Physician History of Present Illness: Incisional discomfort improving, having BM, but reports voiding dysfunction. - Current Medication List Current Medications: Active Medications Acetaminophen (Tylenol Suppository -) 650 mg [place] Q4H PRN PRN Reason: FEVER OR PAIN Acetaminophen (Tylenol -) 650 mg PO Q4H PRN PRN Reason: FEVER OR PAIN Last Admin: 04/27/17 13:49 Dose: 650 mg Enoxaparin Sodium (Lovenox -) 40 mg SQ DAILY [facility] Last Admin: 04/27/17 10:46 Dose: 40 mg Potassium Chloride/Dextrose/Sod Cl (D5-1/2ns+20 Meq Kcl -) 1,000 mls @ 100 mls/ hr IV ASDIR [facility] Last Admin: 04/27/17 17:58 Dose: 100 mls/hr Pantoprazole Sodium 80 mg/ (Sodium Chloride) 100 mls @ 10 mls/hr IVPB Q10H [facility] PRN Reason: 8 MG/HR Last Admin: 04/28/17 02:00 Dose: 10 mls/hr - Objective Vital Signs: Vital Signs Temperature 97.6 F 04/28/17 05:44 Pulse Rate 78 04/28/17 05:44 Respiratory Rate 20 04/28/17 05:44 Blood Pressure 145/52 04/28/17 05:44 O2 Sat by Pulse Oximetry (%) 96 04/27/17 21:00 Constitutional: Yes: No Distress, Calm Neck: Yes: Supple Cardiovascular: Yes: Regular Rate and Rhythm Respiratory: Yes: Regular, Diminished Gastrointestinal: Yes: Normal Bowel Sounds, Soft Edema: No Labs: CBC, BMP 04/28/17 07:30 04/28/17 07:30 INR, PTT INR 1.20 (0.82-1.09) H 04/21/17 13:00 Problem List - Problems (1) Acute blood loss anemia Code(s): D62 - ACUTE POSTHEMORRHAGIC ANEMIA (2) Colon neoplasm Code(s): D49.0 - NEOPLASM OF UNSPECIFIED BEHAVIOR OF DIGESTIVE SYSTEM (3) GIB (gastrointestinal bleeding) Code(s): K92.2 - GASTROINTESTINAL HEMORRHAGE, UNSPECIFIED Qualifiers: GI bleed type/associated pathology: unspecified gastrointestinal hemorrhage type Qualified Code(s): K92.2 - Gastrointestinal hemorrhage, unspecified (4) Hypothyroidism Code(s): E03.9 - HYPOTHYROIDISM, UNSPECIFIED Qualifiers: Hypothyroidism type: unspecified Qualified Code(s): E03.9 - Hypothyroidism, unspecified (5) Adnexal mass Code(s): N94.9 - UNSP COND ASSOC W FEMALE GENITAL ORGANS AND MENSTRUAL CYCLE (6) S/P laparoscopic colectomy Code(s): Z90.49 - ACQUIRED ABSENCE OF OTHER SPECIFIED PARTS OF DIGESTIVE TRACT (7) Chronic kidney disease Code(s): N18.9 - CHRONIC KIDNEY DISEASE, UNSPECIFIED Qualifiers: Chronic kidney disease stage: stage 2 (mild) Qualified Code(s): N18.2 - Chronic kidney disease, stage 2 (mild) Assessment/Plan 1. Stage III hepatic flexure colon cancer POD#5 laparoscopic right colectomy 2. Left cystic adnexal mass post left oophorectomy POD#5 3. Microcytic anemia post transfusion 4. Hypothyroidism 5. Acute on CKD 6. Voiding dysfunction PLAN: 1. Pain management as per primary team 2. DVT and GI prophylaxis 3. Adjuvant chemotherapy as per oncology service pending staging 4. Bladder scan and catheterization as needed
--- NOTE | 2017-04-28 10:07 | PN ---
Progress Note (short form) - Note Progress Note: surgery pt seen and examined. feels the same. tolerated some liquids last night. still no voiding. only walked two times yesterday. afebrile abd- soft, more distension today, minimal tenderness, soft Laboratory Tests 04/28/ 07:30 WBC 13.6 H A/P 1) pod #5- full liquids. cont ivf, straight cath prn, 2) pain- only tylenol 3) prophylaxis- protonix, lovenox, oob 4) likey colon ca- suspect t4, node positive- follow path 5) low albumin, malnutrition- increased risk of leak. cont liquids. 6) leukocytosis- unclear source. will get cxr to look for atelectasis. will check ua. no fever. been off abx for 4 days.
[2017-04-28] MEDS: ENOXAPARIN NA (PORCINE) 40 MG/0.4 ML DISP.SYRIN SQ SCH (10:15)
[2017-04-28] MEDS: D5-1/2NS+20 MEQ KCL - 1,000 ML IV SCH (10:19)
[2017-04-28] MEDS: ACETAMINOPHEN 325 MG TABLET (FP) PO PRN (11:41)
--- NOTE | 2017-04-28 11:48 | PN ---
Progress Note (short form) - Note Progress Note: Ambulated with a walker. Denies CP or SOB. Some minimal dry cough. Using the Incentive Spirometer sporadically according to her daughter. CXR : Left basilar plate like atelectasis / No gross infiltrate Intake & Output 04/25/17 04/26/17 04/27/17 04/28/17 23:59 23:59 23:59 23:59 Intake Total 2770 1310 2530 1320 Output Total 1602 1625 825 200 Balance 1168 -315 1705 1120 Last Vital Signs Temp Pulse Resp BP Pulse Ox 97.6 F 78 20 145/52 96 04/28/17 05:44 04/28/17 05:44 04/28/17 05:44 04/28/17 05:44 04/27/17 21:00 Active Medications Acetaminophen (Tylenol Suppository -) 650 mg [place] Q4H PRN PRN Reason: FEVER OR PAIN Acetaminophen (Tylenol -) 650 mg PO Q4H PRN PRN Reason: FEVER OR PAIN Last Admin: 04/28/17 11:41 Dose: 650 mg Enoxaparin Sodium (Lovenox -) 40 mg SQ DAILY [facility] Last Admin: 04/28/17 10:15 Dose: 40 mg Pantoprazole Sodium 80 mg/ (Sodium Chloride) 100 mls @ 10 mls/hr IVPB Q10H [facility] PRN Reason: 8 MG/HR Last Admin: 04/28/17 10:19 Dose: Not Given Potassium Chloride/Dextrose/Sod Cl (D5-1/2ns+20 Meq Kcl -) 1,000 mls @ 70 mls/ hr IV ASDIR [facility] Last Admin: 04/28/17 10:19 Dose: 70 mls/hr Constitutional: Yes: No Distress Eyes: Yes: Conjunctiva Clear, EOM Intact HENT: Yes: Atraumatic, Normocephalic Neck: Yes: Supple, Trachea Midline Cardiovascular: Yes: Regular Rate and Rhythm Respiratory: Yes: CTA Bilaterally, On Nasal O2. No: Accessory Muscle Use, Rales , Stridor, Tachypnea, Wheezes ...Inspection: Yes: WNL ...Clubbing: No Gastrointestinal: Yes: Normal Bowel Sounds, Soft Renal/: Yes: WNL Musculoskeletal: Yes: WNL Extremities: Yes: WNL Edema: No Peripheral Pulses WNL: Yes Integumentary: Yes: WNL Neurological: Yes: Alert, Oriented ...Motor Strength: WNL Psychiatric: Yes: WNL, Alert, Oriented Labs: Laboratory Results - last 24 hr 04/28/17 04/28/17 07:30 07:30 WBC 13.6 H RBC 3.73 Hgb 9.9 L Hct 30.3 L MCV 81.2 MCH 26.6 MCHC 32.8 RDW 24.4 H Plt Count 269 D MPV 7.6 Neutrophils % 87.1 H Lymphocytes % 4.6 L D Monocytes % 6.8 Eosinophils % 1.3 Basophils % 0.2 Sodium 135 L Potassium 4.3 Chloride 107 Carbon Dioxide 19 L Anion Gap 9 BUN 13 Creatinine 1.3 H Random Glucose 109 H Calcium 7.5 L Phosphorus 2.8 D Magnesium 1.8 Problem List - Problems (1) Acute blood loss anemia Code(s): D62 - ACUTE POSTHEMORRHAGIC ANEMIA (2) Colon neoplasm Code(s): D49.0 - NEOPLASM OF UNSPECIFIED BEHAVIOR OF DIGESTIVE SYSTEM (3) Esophagitis Code(s): K20.9 - ESOPHAGITIS, UNSPECIFIED (4) GIB (gastrointestinal bleeding) Code(s): K92.2 - GASTROINTESTINAL HEMORRHAGE, UNSPECIFIED Qualifiers: GI bleed type/associated pathology: unspecified gastrointestinal hemorrhage type Qualified Code(s): K92.2 - Gastrointestinal hemorrhage, unspecified (5) Hematemesis with nausea Code(s): K92.0 - HEMATEMESIS R11.0 - NAUSEA (6) SHARITA (acute kidney injury) Code(s): N17.9 - ACUTE KIDNEY FAILURE, UNSPECIFIED (7) Atelectasis of both lungs Code(s): J98.11 - ATELECTASIS (8) 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 S/P laparoscopic extended right colectomy with en bloc resection of portion of abd wall, removal of left adenexal mass Assessment/Plan Encouraged patient to use Incentive Spirometer and Ambulate -> Do not think that she needs ABX at this time O2 as needed BD TX PRN No role for systemic steroids at this time D/C planning Dr Mckeon Problem List - Problems (1) Acute blood loss anemia Code(s): D62 - ACUTE POSTHEMORRHAGIC ANEMIA (2) Colon neoplasm Code(s): D49.0 - NEOPLASM OF UNSPECIFIED BEHAVIOR OF DIGESTIVE SYSTEM (3) Esophagitis Code(s): K20.9 - ESOPHAGITIS, UNSPECIFIED (4) GIB (gastrointestinal bleeding) Code(s): K92.2 - GASTROINTESTINAL HEMORRHAGE, UNSPECIFIED Qualifiers: GI bleed type/associated pathology: unspecified gastrointestinal hemorrhage type Qualified Code(s): K92.2 - Gastrointestinal hemorrhage, unspecified (5) Hematemesis with nausea Code(s): K92.0 - HEMATEMESIS R11.0 - NAUSEA (6) SHARITA (acute kidney injury) Code(s): N17.9 - ACUTE KIDNEY FAILURE, UNSPECIFIED (7) Atelectasis of both lungs Code(s): J98.11 - ATELECTASIS (8) 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
--- NOTE | 2017-04-28 14:01 | PN ---
Progress Note, Physician Chief Complaint: OOB to chair had 1 BM is on fluid diet; Braga removed - Current Medication List Current Medications: Active Medications Acetaminophen (Tylenol Suppository -) 650 mg [place] Q4H PRN PRN Reason: FEVER OR PAIN Acetaminophen (Tylenol -) 650 mg PO Q4H PRN PRN Reason: FEVER OR PAIN Last Admin: 04/28/17 11:41 Dose: 650 mg Enoxaparin Sodium (Lovenox -) 40 mg SQ DAILY [facility] Last Admin: 04/28/17 10:15 Dose: 40 mg Pantoprazole Sodium 80 mg/ (Sodium Chloride) 100 mls @ 10 mls/hr IVPB Q10H [facility] PRN Reason: 8 MG/HR Last Admin: 04/28/17 10:19 Dose: Not Given Potassium Chloride/Dextrose/Sod Cl (D5-1/2ns+20 Meq Kcl -) 1,000 mls @ 70 mls/ hr IV ASDIR [facility] Last Admin: 04/28/17 10:19 Dose: 70 mls/hr - Objective Vital Signs: Vital Signs Temperature 97.9 F 04/28/17 08:00 Pulse Rate 76 04/28/17 08:00 Respiratory Rate 20 04/28/17 08:00 Blood Pressure 116/63 04/28/17 08:00 O2 Sat by Pulse Oximetry (%) 96 04/28/17 08:00 Constitutional: Yes: No Distress, Calm Eyes: Yes: Conjunctiva Clear HENT: Yes: Atraumatic Neck: Yes: Supple Cardiovascular: Yes: Regular Rate and Rhythm Respiratory: Yes: CTA Bilaterally Gastrointestinal: Yes: Soft, Tenderness Genitourinary: No: CVA Tenderness - Left, CVA Tenderness - Right Musculoskeletal: No: Joint Stiffness, Joint Swelling Extremities: No: Cold, Cool, Cyanosis Edema: No Integumentary: No: Rash, Venous Stasis Changes Neurological: Yes: WNL, Alert, Oriented ...Motor Strength: WNL Psychiatric: Yes: WNL, Alert, Oriented. No: Agitated, Suicidal Ideation Labs: CBC, BMP 04/28/17 07:30 04/28/17 07:30 INR, PTT INR 1.20 (0.82-1.09) H 04/21/17 13:00 - ....Imaging Other: Report Reviewed Assessment/Plan 77 y/o F with a PMHx of hyperthyroidism, atelectasis of bilateral lungs, acute kidney injury presents to the ED via EMS dizziness and weakness. Severe anemia GI bleed, colonic mass probably colon CA s/p R hemicolectomy and partial oophorectomy cardiac, pulm and GI f/u check pathology f/u labs d/w pt's daughter
[2017-04-29 05:09] LABS: URINE APPEARANCE CLEAR; URINE BILIRUBIN NEGATIVE (NEGATIVE); URINE BLOOD 1+ (NEGATIVE); URINE COLOR YELLOW; URINE GLUCOSE (UA) NEGATIVE (NEGATIVE); URINE KETONE NEGATIVE (NEGATIVE); URINE NITRITE NEGATIVE (NEGATIVE); URINE PROTEIN NEGATIVE (NEGATIVE); URINE UROBILINOGEN NEGATIVE mg/dL (0.2-1.0)
[2017-04-29 05:26] LABS: URINE LEUK ESTERASE 1+ (NEGATIVE)
[2017-04-29 05:32] LABS: URINE BACTERIA RARE /hpf (NONE SEEN); URINE MUCUS RARE; URINE RBC 12 /hpf (0-3); URINE WBC 14 /hpf (3-5)
[2017-04-29 07:08] LABS: BASOPHIL 0.5 % (0-2.0); EOSINOPHIL 1.1 % (0-4.5); MCH 26.8 pg (25.7-33.7); MCHC 32.7 g/dl (32.0-36.0); MEAN CELL VOLUME 81.9 fl (80-96); MEAN PLT VOLUME 7.7 fl (7.5-11.1); NEUTROPHILS 87.8 % (42.8-82.8); PLATELET COUNT 394 K/MM3 (134-434); RDW 24.4 % (11.6-15.6); WHITE BLOOD COUNT 12.2 K/mm3 (4.0-10.0)
[2017-04-29 08:38] LABS: ANION GAP 11 (8-16); CALCIUM 7.6 mg/dL (8.5-10.1); CO2 18 mmol/L (21-32); CREATININE 1.5 mg/dL (0.55-1.02); GLUCOSE,RANDOM 108 mg/dL (74-106); MAGNESIUM 1.9 mg/dL (1.8-2.4); PHOSPHOROUS 2.9 mg/dL (2.5-4.9)
[2017-04-29] MEDS: D5-1/2NS+20 MEQ KCL - 1,000 ML IV SCH ×2 (08:59→10:52)
--- NOTE | 2017-04-29 09:48 | PN ---
Progress Note (short form) - Note Progress Note: Chief Complaint: Events noted, notes reviewed, resting in bed, denies any chest discomfort or dyspnea History of Present Illness: Seen and examined. Events noted, notes reviewed, resting in bed, denies any chest discomfort or dyspnea Medications: Current Medications Acetaminophen (Tylenol Suppository -) 650 mg [place] Q4H PRN PRN Reason: FEVER OR PAIN Acetaminophen (Tylenol -) 650 mg PO Q4H PRN PRN Reason: FEVER OR PAIN Last Admin: 04/28/17 11:41 Dose: 650 mg Enoxaparin Sodium (Lovenox -) 40 mg SQ DAILY [facility] Last Admin: 04/28/17 10:15 Dose: 40 mg Pantoprazole Sodium 80 mg/ (Sodium Chloride) 100 mls @ 10 mls/hr IVPB Q10H [facility] PRN Reason: 8 MG/HR Last Admin: 04/28/17 10:19 Dose: Not Given Potassium Chloride/Dextrose/Sod Cl (D5-1/2ns+20 Meq Kcl -) 1,000 mls @ 70 mls/ hr IV ASDIR [facility] Last Admin: 04/29/17 08:59 Dose: 70 mls/hr Vital Signs: Last Vital Signs Temp Pulse Resp BP Pulse Ox 97.8 F 84 18 132/57 96 04/29/17 06:00 04/29/17 06:00 04/29/17 06:00 04/29/17 06:00 04/28/17 21:00 Intake & Output 04/26/17 04/27/17 04/28/17 04/29/17 23:59 23:59 23:59 23:59 Intake Total 1310 2530 1556 60 Output Total 1625 825 200 Balance -315 1705 1356 60 Neck: Supple Negative JVD No Bruit Respiratory: Diminished Breath Sounds at the Bases Cardiovascular: S1 S2 Regular Rate Rhythm Gastrointestinal: Soft Benign Normal Bowel Sounds Ext: No Edema Labs: CBC, BMP 04/29/17 06:10 04/29/17 06:10 Assessment/Plan ASSESSMENT: 1. Hepatic flexure colon carcinoma stage III, post laparoscopic right colectomy 2. Left cystic adnexal mass post left oophorectomy 3. Anemia post transfusion 4. Hypothyroidism 5. Acute on CKD PLAN: 1. Pain management as per primary team 2. DVT prophylaxis 3. Adjuvant chemotherapy as per oncology service Dania Gerard M.D.
[2017-04-29] MEDS: ENOXAPARIN NA (PORCINE) 40 MG/0.4 ML DISP.SYRIN SQ SCH (09:56)
[2017-04-29] MEDS: ACETAMINOPHEN 325 MG TABLET (FP) PO PRN (09:58)
--- NOTE | 2017-04-29 10:20 | PN ---
GI Progress Note Subjective: GASTROENTEROLOGY SEEN TODAY, SHE IS OOB WALKING IN HALLS STILL ON LIQUID DIET PASSING STOOLS SOME RESIDUAL PAIN SPOKE WITH SURGEON AFTER OPERATION AND CALLED PATHOLOGY TODAY THE FULL PATH REPORT WILL BE READY IN THE AM - Objective Vital Signs: Vital Signs Temperature 97.8 F 04/29/17 06:00 Pulse Rate 84 04/29/17 06:00 Respiratory Rate 18 04/29/17 06:00 Blood Pressure 132/57 04/29/17 06:00 O2 Sat by Pulse Oximetry (%) 96 04/28/17 21:00 Constitutional: Calm Eyes: Yes: Conjunctiva Clear Neck: Yes: Supple Cardiovascular: Yes: Regular Rate and Rhythm Respiratory: Yes: Regular ...Auscultate: Yes: Normoactive Bowel Sounds ...Palpate: Yes: Other (HEALING WOUNDS) Extremities: Yes: WNL Labs: CBC, BMP 04/29/17 06:10 04/29/17 06:10 INR, PTT INR 1.20 (0.82-1.09) H 04/21/17 13:00 Problem List - Problems (1) Colon neoplasm Assessment/Plan: AWAIT FOR PATH ONCOLOGY FOLLOW UP POST OP CARE PER SURGERY Code(s): D49.0 - NEOPLASM OF UNSPECIFIED BEHAVIOR OF DIGESTIVE SYSTEM (2) Barretts esophagus Assessment/Plan: CONTINUE PROTONIX, CAN CHANGE TO PROTONIX 40 MG PO BID EGD OUTPATIENT Code(s): K22.70 - SEXTON'S ESOPHAGUS WITHOUT DYSPLASIA (3) Hematemesis with nausea Code(s): K92.0 - HEMATEMESIS R11.0 - NAUSEA (4) Acute blood loss anemia Code(s): D62 - ACUTE POSTHEMORRHAGIC ANEMIA (5) Iron deficiency anemia Code(s): D50.9 - IRON DEFICIENCY ANEMIA, UNSPECIFIED Qualifiers: Iron deficiency anemia type: unspecified iron deficiency Qualified Code(s): D50.9 - Iron deficiency anemia, unspecified (6) Hypothyroidism Code(s): E03.9 - HYPOTHYROIDISM, UNSPECIFIED Qualifiers: Hypothyroidism type: unspecified Qualified Code(s): E03.9 - Hypothyroidism, unspecified
[2017-04-29] MEDS: PANTOPRAZOLE SODIUM 80 MG in SODIUM CHLORIDE 100 ML IVPB SCH (10:37)
--- NOTE | 2017-04-29 10:40 | PN ---
Progress Note, Physician Chief Complaint: OOB to chair started purre diet tolerated well, had BM and urinated OJ less pain consults reviewed daughter and son at bedside walked with PT 200 feet - Current Medication List Current Medications: Active Medications Acetaminophen (Tylenol Suppository -) 650 mg [place] Q4H PRN PRN Reason: FEVER OR PAIN Acetaminophen (Tylenol -) 650 mg PO Q4H PRN PRN Reason: FEVER OR PAIN Last Admin: 04/29/17 09:58 Dose: 650 mg Enoxaparin Sodium (Lovenox -) [address] [facility] Last Admin: 04/29/17 09:56 Dose: 40 mg Pantoprazole Sodium 80 mg/ (Sodium Chloride) 100 mls @ 10 mls/hr IVPB Q10H [facility] PRN Reason: 8 MG/HR Last Admin: 04/28/17 10:19 Dose: Not Given Potassium Chloride/Dextrose/Sod Cl (D5-1/2ns+20 Meq Kcl -) 1,000 mls @ 70 mls/ hr IV ASDIR [facility] Last Admin: 04/29/17 08:59 Dose: 70 mls/hr - Objective Vital Signs: Vital Signs Temperature 97.8 F 04/29/17 06:00 Pulse Rate 84 04/29/17 06:00 Respiratory Rate 18 04/29/17 06:00 Blood Pressure 132/57 04/29/17 06:00 O2 Sat by Pulse Oximetry (%) 96 04/28/17 21:00 Constitutional: Yes: No Distress, Calm Eyes: Yes: Conjunctiva Clear HENT: Yes: Atraumatic Neck: Yes: Supple Cardiovascular: Yes: Regular Rate and Rhythm Respiratory: Yes: CTA Bilaterally Gastrointestinal: Yes: Soft, Tenderness (less). No: Distention Genitourinary: No: CVA Tenderness - Left, CVA Tenderness - Right Musculoskeletal: No: Joint Stiffness, Joint Swelling Extremities: No: Cold, Cool, Cyanosis Edema: No Integumentary: No: Rash, Venous Stasis Changes Neurological: Yes: WNL, Alert, Oriented ...Motor Strength: WNL Psychiatric: Yes: WNL, Alert, Oriented. No: Agitated, Suicidal Ideation Labs: CBC, BMP 04/29/17 06:10 04/29/17 06:10 INR, PTT INR 1.20 (0.82-1.09) H 04/21/17 13:00 - ....Imaging Other: Report Reviewed Assessment/Plan 77 y/o F with a PMHx of hyperthyroidism, atelectasis of bilateral lungs, acute kidney injury presents to the ED via EMS dizziness and weakness. Severe anemia GI bleed, colonic mass colon CA s/p R hemicolectomy and partial oophorectomy cardiac, pulm and GI f/u oncology f/u outpt for further treatment f/u labs d/w pt and pt's daughter and son DC home in am if OK with surgery
--- NOTE | 2017-04-29 13:24 | PATH ---
Surgical Pathology Report Patient Name: PATRICIA ROJAS [facility]. Rec. #: [id number] /Age/Gender: 1940 (Age: 77) / F Account: [id number] Location: [address] [place] [address]/[facility] Taken: 04/23/2017 Received: 04/23/2017 Reported: 04/29/2017 Physicians: Michael Segura M.D. Specimen(s) Received A: LEFT ADNEXAL MASS B: EXTENDED RIGHT HEMICOLECTOMY WITH PORTION OF RIGHT ABDOMINAL WALL Clinical History Colon mass Final Diagnosis A. LEFT ADNEXAL MASS, EXCISION: BENIGN MUCINOUS CYSTADENOMA, ENDOCERVICAL TYPE, ALONG WITH BENIGN CYSTIC OXANA TUMOR. NO MALIGNANT FEATURES IDENTIFIED. B. COLON, EXTENDED RIGHT HEMICOLECTOMY WITH RIGHT ABDOMINAL WALL RESECTION: MODERATELY DIFFERENTIATED (LOW GRADE) ADENOCARCINOMA WITH EXTENSIVE NECROSIS, 5.5 CM IN GREATEST DIMENSION, EXTENDING THROUGH ENTIRE THICKNESS OF COLONIC WALL TO VISCERAL SEROSA, WITH GROSSLY NOTED AREA OF PERFORATION. DENSE FIBROUS ADHESIONS TO PORTION OF ABDOMINAL WALL ARE NOTED, BUT NO NEOPLASTIC GLANDS ARE IDENTIFIED INVADING INTO ABDOMINAL WALL. PROXIMAL, DISTAL, AND RADIAL MARGINS OF EXCISION ARE FREE OF CARCINOMA, WITH CARCINOMA 0.8 CM FROM THE RADIAL/ABDOMINAL WALL MARGIN, AND 6 CM FROM THE DISTAL MARGIN. LYMPH VASCULAR INVASION IS PRESENT. PERINEURAL INVASION IS PRESENT. AREAS SUSPICIOUS FOR LARGE VESSEL/VENOUS INVASION ARE IDENTIFIED WITH ELASTIC STAIN, BUT NO DEFINITE LARGE VESSEL/VENOUS INVASION IS IDENTIFIED. NO METASTATIC CARCINOMA IDENTIFIED IN 20 MESENTERIC LYMPH NODES (0/20). BENIGN APPENDIX WITH FIBROUS OBLITERATION OF LUMEN PRESENT. Comment: Also see prior specimen [id number]. Immunohistochemical stains for MisMatch Repair Protein Analysis performed at [facility] in [place], [place] ([id number]) and interpreted at [facility] show the following: RESULTS: HMLH-1 LOSS OF NUCLEAR EXPRESSION HMSH-2 INTACT NUCLEAR EXPRESSION HMSH-6 INTACT NUCLEAR EXPRESSION PMS2 LOSS OF NUCLEAR EXPRESSION INTERPRETATION: Loss of nuclear expression of MLH1 and PSM2: Additional molecular tests are pending, and a report will follow. Comments Colorectal carcinoma : Surgical Pathology Cancer Case Summary (Checklist) Based on AJCC/UICC TNM, 7th edition Specimen: B. EXTENDED RIGHT HEMICOLECTOMY WITH PORTION OF RIGHT ABDOMINAL WALL Procedure: EXTENDED RIGHT HEMICOLECTOMY Tumor Site: RIGHT COLON Tumor Size Greatest dimension: 5.5 cm Macroscopic Tumor Perforation _X__ Present Histologic Type : ADENOCARCINOMA Histologic Grade _X__ Low-grade (well-differentiated to moderately differentiated) Microscopic Tumor Extension _X__ Tumor penetrates to the surface of the visceral peritoneum (serosa) Margins Proximal Margin _X__ Uninvolved by invasive carcinoma Distal Margin _X__ Uninvolved by invasive carcinoma Circumferential (Radial) or Mesenteric Margin _X__ Uninvolved by invasive carcinoma If all margins uninvolved by invasive carcinoma: Distance of invasive carcinoma from closest margin: 8 mm Specify margin: ABDOMINAL WALL/ RADIAL MARGIN Lymph-Vascular Invasion _X__ Present Perineural Invasion _X__ Present Tumor Deposits (discontinuous extramural extension) _X__ Not identified Pathologic Staging (pTNM) Primary Tumor: pT4a Regional Lymph Nodes: pN0 Number examined 20 Number involved 0 Distant Metastasis : pMX Electronically Signed Ap Joshua M.D. Gross Description A. Received in formalin labeled "left adnexal mass," is a 6.0 x 5.2 x 4.5 cm intact cyst. The outer surface is winkler kraus and smooth. The lumen contains clear serous fluid. The inner lining of the cyst is smooth. No excrescences are identified grossly. Intramural Director sections are submitted in 4 cassettes. B. Received in formalin labeled "extended right hemicolectomy with portion of right abdominal wall," is a 9 cm in length portion of terminal ileum with an attached 19 cm in length portion of cecum and right colon. There is a suture present marking the abdominal wall, per the surgeon. The specimen displays 2 stapled mucosal margins and abundant attached pericolonic adipose tissue. The serosa is winkler-kraus with a focal defect and fibrous adhesions as well as a 2 cm in greatest dimension portion of attached abdominal wall (inked blue). There is a 4 cm in length vermiform appendix attached to the cecum. Sectioning reveals a 5.5 x 5.3 cm winkler-brown, circumferential, hemorrhagic and ulcerated mass in the right colon, 6 cm from the distal mucosal margin. The mass extends through the serosa and into the pericolonic adipose tissue. The mass is focally continuous with the serosal defect. The mass is 1 cm from the mesenteric margin of resection. The remaining colonic mucosa is winkler with normal folds. Sectioning of the appendix reveals a focally dilated lumen containing brown fecal material. Sectioning of the pericolonic adipose tissue reveals multiple winkler, irregular lymph nodes ranging from 0.3-0.7 cm in greatest dimension. Intramural Director sections are submitted in 27 cassettes as follows: 1-terminal ileal margin of resection; 2-distal mucosal margin of resection; 3-mesenteric margin of resection; 4-appendix; 5-6-mass to abdominal wall (inked blue); 7-mass to serosal defect; 2-85-fzmzugdphn mass; 13-uninvolved terminal ileum; 14-uninvolved distal right colon; 15-23-one whole bisected lymph node each; 64-23-wnbcyeyf whole lymph nodes each. 04/24/2017 [facility]04/24/2017
--- NOTE | 2017-04-29 14:32 | PN ---
Progress Note (short form) - Note Progress Note: surgery pt seen and examined. feels well today. tolerating liquids. ambulating. no pain. afebrile abd- soft, nt,nd, incision clean Laboratory Tests 04/29/17 06:10 WBC 12.2 H A/P 1) pod #6- low residue diet for 1 week. surgically stable for d/c tomorrow if remains well. 2) pain- only tylenol 3) prophylaxis- protonix, lovenox, while in hospital 4) likey colon ca- t4 with negative nodes, will need outpt onc eval 5) low albumin, malnutrition- low fiber diet 6) leukocytosis- unclear source. cxr and ua unremarkable. likely reactive. slightly improved.
--- NOTE | 2017-04-29 16:05 | PN ---
Progress Note (short form) - Note Progress Note: Feels overall better. Denies CP or SOB. Some minimal dry cough. Intake & Output 04/26/17 04/27/17 04/28/17 04/29/17 23:59 23:59 23:59 23:59 Intake Total 1310 2530 1556 260 Output Total 1625 825 200 Balance -315 1705 1356 260 Last Vital Signs Temp Pulse Resp BP Pulse Ox 97.3 F L 70 21 141/58 97 04/29/17 13:47 04/29/17 13:47 04/29/17 13:47 04/29/17 13:47 04/29/17 09:00 Active Medications Acetaminophen (Tylenol Suppository -) [address] Q4H PRN PRN Reason: FEVER OR PAIN Acetaminophen (Tylenol -) 650 mg PO Q4H PRN PRN Reason: FEVER OR PAIN Last Admin: 04/29/17 09:58 Dose: 650 mg Enoxaparin Sodium (Lovenox -) 40 mg SQ DAILY KARL Last Admin: 04/29/17 09:56 Dose: 40 mg Pantoprazole Sodium (Protonix -) 40 mg PO DAILY [facility] Constitutional: Yes: No Distress Eyes: Yes: Conjunctiva Clear, EOM Intact HENT: Yes: Atraumatic, Normocephalic Neck: Yes: Supple, Trachea Midline Cardiovascular: Yes: Regular Rate and Rhythm Respiratory: Yes: CTA Bilaterally, On Nasal O2. No: Accessory Muscle Use, Rales , Stridor, Tachypnea, Wheezes ...Inspection: Yes: WNL ...Clubbing: No Gastrointestinal: Yes: Normal Bowel Sounds, Soft Renal/: Yes: WNL Musculoskeletal: Yes: WNL Extremities: Yes: WNL Edema: No Peripheral Pulses WNL: Yes Integumentary: Yes: WNL Neurological: Yes: Alert, Oriented ...Motor Strength: WNL Psychiatric: Yes: WNL, Alert, Oriented Labs: Laboratory Results - last 24 hr 04/29/17 04/29/17 04/29/17 04:00 06:10 06:10 WBC 12.2 H RBC 3.95 Hgb 10.6 L Hct 32.4 MCV 81.9 MCH 26.8 MCHC 32.7 RDW 24.4 H Plt Count 394 D MPV 7.7 Neutrophils % 87.8 H Lymphocytes % 3.6 L D Monocytes % 7.0 Eosinophils % 1.1 Basophils % 0.5 Sodium 133 L Potassium 4.4 Chloride 104 Carbon Dioxide 18 L Anion Gap 11 BUN 15 Creatinine 1.5 H Random Glucose 108 H Calcium 7.6 L Phosphorus 2.9 Magnesium 1.9 Urine Color Yellow Urine Appearance Clear Urine pH 6.0 Ur Specific Joseph <= 1.005 Urine Protein Negative Urine Glucose (UA) Negative Urine Ketones Negative Urine Blood 1+ H Urine Nitrite Negative Urine Bilirubin Negative Urine Urobilinogen Negative Urine RBC 12 Urine WBC 14 Ur Epithelial Cells Rare Urine Bacteria Rare Urine Mucus Rare Problem List - Problems (1) Acute blood loss anemia Code(s): D62 - ACUTE POSTHEMORRHAGIC ANEMIA (2) Colon neoplasm Code(s): D49.0 - NEOPLASM OF UNSPECIFIED BEHAVIOR OF DIGESTIVE SYSTEM (3) Esophagitis Code(s): K20.9 - ESOPHAGITIS, UNSPECIFIED (4) GIB (gastrointestinal bleeding) Code(s): K92.2 - GASTROINTESTINAL HEMORRHAGE, UNSPECIFIED Qualifiers: GI bleed type/associated pathology: unspecified gastrointestinal hemorrhage type Qualified Code(s): K92.2 - Gastrointestinal hemorrhage, unspecified (5) Hematemesis with nausea Code(s): K92.0 - HEMATEMESIS R11.0 - NAUSEA (6) SHARITA (acute kidney injury) Code(s): N17.9 - ACUTE KIDNEY FAILURE, UNSPECIFIED (7) Atelectasis of both lungs Code(s): J98.11 - ATELECTASIS (8) 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 S/P laparoscopic extended right colectomy with en bloc resection of portion of abd wall, removal of left adenexal mass Assessment/Plan Incentive Spirometery Ambulate as tolerated O2 as needed BD TX PRN Monitor off ABX No role for systemic steroids at this time D/C planning Dr Mckeon Problem List - Problems (1) Acute blood loss anemia Code(s): D62 - ACUTE POSTHEMORRHAGIC ANEMIA (2) Colon neoplasm Code(s): D49.0 - NEOPLASM OF UNSPECIFIED BEHAVIOR OF DIGESTIVE SYSTEM (3) Esophagitis Code(s): K20.9 - ESOPHAGITIS, UNSPECIFIED (4) GIB (gastrointestinal bleeding) Code(s): K92.2 - GASTROINTESTINAL HEMORRHAGE, UNSPECIFIED Qualifiers: GI bleed type/associated pathology: unspecified gastrointestinal hemorrhage type Qualified Code(s): K92.2 - Gastrointestinal hemorrhage, unspecified (5) Hematemesis with nausea Code(s): K92.0 - HEMATEMESIS R11.0 - NAUSEA (6) SHARITA (acute kidney injury) Code(s): N17.9 - ACUTE KIDNEY FAILURE, UNSPECIFIED (7) Atelectasis of both lungs Code(s): J98.11 - ATELECTASIS (8) 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
--- NOTE | 2017-04-29 19:24 | PN ---
Progress Note (short form) - Note Progress Note: Patient seen and examined Patient and family well known to me . Discussed diagnosis with patient/family . At least T4a lesion. Testing for microsatellite instability reveals 2 MMR r genes abnormal and additional testing is pending. P.E. Remains weak and debilitated post surgery Lungs are clear. RSR Abdomen is distended with surgical scars. normoactive bowel sounds LE edema Last Vital Signs Temp Pulse Resp BP Pulse Ox 97.3 F L 70 21 141/58 97 04/29/17 13:47 04/29/17 13:47 04/29/17 13:47 04/29/17 13:47 04/29/17 09:00 CBC, BMP 04/29/17 06:10 04/29/17 06:10 Impression: Invasive adenoca of colon - multiple negative prognostic features-- gross perforation, LVI, Perineural invasion, at least T4a lesion, possible large vessel invasion-- although not proven. Will need adjuvant systemic therapy when healed surgically. patient and family aware.
[2017-04-30 08:07] LABS: BASOPHIL 0.4 % (0-2.0); EOSINOPHIL 0.6 % (0-4.5); MCH 26.5 pg (25.7-33.7); MCHC 32.7 g/dl (32.0-36.0); MEAN CELL VOLUME 81.1 fl (80-96); MEAN PLT VOLUME 7.8 fl (7.5-11.1); NEUTROPHILS 87.6 % (42.8-82.8); PLATELET COUNT 246 K/MM3 (134-434); RDW 23.7 % (11.6-15.6); WHITE BLOOD COUNT 10.9 K/mm3 (4.0-10.0)
[2017-04-30 08:42] LABS: ALBUMIN 1.4 g/dl (3.4-5.0); ANION GAP 9 (8-16); CALCIUM 7.5 mg/dL (8.5-10.1); CO2 17 mmol/L (21-32); CREATININE 1.4 mg/dL (0.55-1.02); GLUCOSE,RANDOM 83 mg/dL (74-106); SGOT/AST 42 U/L (15-37)
[2017-04-30 08:45] LABS: ALK PHOS 360 U/L (45-117); BILIRUBIN,TOTAL 0.9 mg/dL (0.2-1.0); SGPT/ALT 32 U/L (12-78); TOT PROT 4.7 g/dl (6.4-8.2)
[2017-04-30 08:59] VITALS: BP 149/58; PULSE 78; TEMP 98.2
[2017-04-30] MEDS: ENOXAPARIN NA (PORCINE) 40 MG/0.4 ML DISP.SYRIN SQ SCH (09:16)
[2017-04-30] MEDS ORDERED: PANTOPRAZOLE 40 MG TABLET (FP) PO SCH (10:00)
--- NOTE | 2017-04-30 11:16 | PN ---
Progress Note (short form) - Note Progress Note: Patient seen and examined Sitting in a chair. ready to be discharged. AFVSS Cor: RSR, No murmurs, No gallops Lungs: Clear to P&A Abdomen: slightly distended, BS+ Ext:No significant edema Skin: No rashes, Integum Last Vital Signs Temp Pulse Resp BP Pulse Ox 98.2 F 78 18 149/58 98 04/30/17 08:00 04/30/17 08:00 04/30/17 08:00 04/30/17 08:00 04/29/17 20:23 Current Medications Generic Name Dose Route Start Last Admin Trade Name Freq PRN Reason Stop Dose Admin Acetaminophen 650 mg 04/23/17 12:32 Tylenol Suppository - AR Q4H PRN FEVER OR PAIN Acetaminophen 650 mg 04/26/17 13:38 04/29/17 09:58 Tylenol - PO 650 mg Q4H PRN Administration FEVER OR PAIN Enoxaparin Sodium 40 mg 04/26/17 10:00 04/30/17 09:16 Lovenox - SQ 40 mg DAILY KARL Administration Pantoprazole Sodium 40 mg 04/30/17 10:00 04/30/17 09:16 Protonix - PO 40 mg DAILY KARL Administration CBC, BMP 04/30/17 06:30 04/30/17 06:30 INR, PTT INR 1.20 (0.82-1.09) H 04/21/17 13:00 Assessment/Plan: Likely Stage III Colon ca, with negative prognostic markers Anemia from colon ca. s/p surgery -advised to follow-up in the office -seen by yesterday as per family wishes. -they are aware of the plan
--- NOTE | 2017-04-30 11:21 | DS ---
Physical Examination Vital Signs: Vital Signs Temperature 98.2 F 04/30/17 08:00 Pulse Rate 78 04/30/17 08:00 Respiratory Rate 18 04/30/17 08:00 Blood Pressure 149/58 04/30/17 08:00 O2 Sat by Pulse Oximetry (%) 98 04/29/17 20:23 Findings/Remarks: in bed looks great feels well, less pain, ate OK, had BM and urinated normally; wants to go home; daughter at bedside results, pathology, tests and consults reviewed and d/w pt and daughter d/w ONC dr Gomez & dr Luna, d/w surgery dr Melissa BASS to go home, f/u as advised meds, diet d/w pt and daughter script done will have home VNS; d/w staff t time 40 min Constitutional: Yes: No Distress, Calm Eyes: Yes: Conjunctiva Clear HENT: Yes: Atraumatic Neck: Yes: Supple Cardiovascular: Yes: Regular Rate and Rhythm Respiratory: Yes: CTA Bilaterally Gastrointestinal: Yes: Soft. No: Distention, Tenderness Renal/: No: CVA Tenderness - Left, CVA Tenderness - Right Musculoskeletal: No: Joint Stiffness, Joint Swelling Extremities: No: Cold, Cool, Cyanosis Edema: No Integumentary: No: Rash, Venous Stasis Changes Neurological: Yes: WNL, Alert, Oriented ...Motor Strength: WNL Psychiatric: Yes: WNL, Alert, Oriented. No: Agitated, Suicidal Ideation Labs: CBC, BMP 04/30/17 06:30 04/30/17 06:30 Discharge Summary Reason For Visit: GASTROINTESTINAL HEMORRHAGE,ANEMIA Current Active Problems Acute blood loss anemia (Acute) Adnexal mass (Acute) Barretts esophagus (Acute) Chronic kidney disease (Acute) Colon neoplasm (Acute) Esophagitis (Acute) GIB (gastrointestinal bleeding) (Acute) Hematemesis with nausea (Acute) Iron deficiency anemia (Acute) S/P laparoscopic colectomy (Acute) Procedures: Principal: admitted with anemia, colon mass Other Procedures: R hemicolectomy; diagnosed with colon CA; Hospital Course: transfused; seen by ONCOLOGY; stable now for DC; f/u as advised d/w pt and daughter, d/w consultants Condition: Improved - Instructions Diet, Activity, Other Instructions: f/u PCP and surgery in 1-2 weeks see ONCOLOGY after cleared by surgery to start colon CA treatment RTER if worse pain or fever/ or bleeding f/u with endocrine dr Whitman for thyroid ds, pulmonary dr Monterroso for lung ds and cardiology dr Alma fairchild done and d/w pt and daughter Referrals: Sayda Segura [Primary Care Provider] - Michael Torres MD [Staff Physician] - Luisito Gomez MD [Staff Physician] - Disposition: VNS/HOME HEALTH CARE - Home Medications Comprehensive Discharge Medication List: Ambulatory Orders Ferrous Sulfate [Feosol] 325 mg PO DAILY #30 tab 03/19/17 Levothyroxine [Synthroid -] 25 mcg PO DAILY@0700 #30 tablet 03/19/17 Acetaminophen [Tylenol .Regular Strength -] 650 mg PO Q4H PRN #0 tablet Pantoprazole Sodium [Protonix -] 40 mg PO DAILY #30 tab 04/30/17
--- NOTE | 2017-04-30 12:01 | PN ---
Progress Note (short form) - Note Progress Note: surgery pt seen and examined. feels well. abd soft, nt Plan- agree with discharge. will see in 1-2 weeks. low fiber for one week.
== END 2017-04-30 14:31 | disposition home health service (06) | DRG 329 ==
LOC: JER 12:39 → JERBED 15:09 → J4W 18:00 → JSAMEDAYSX 04-23 10:39 → J6S 04-23 15:10
PROVIDERS: ADMIT Internal Medicine; ATTEND Internal Medicine
PROC: 30233N1 Transfusion of Nonautologous Red Blood Cells into Peripheral Vein, Percutaneous Approach (ICD-10-PCS; 2017-04-21)
PROC: 0UB14ZZ Excision of Left Ovary, Percutaneous Endoscopic Approach (ICD-10-PCS; 2017-04-23)
PROC: 0WBF4ZZ Excision of Abdominal Wall, Percutaneous Endoscopic Approach (ICD-10-PCS; 2017-04-23)
PROC: 0WUF47Z Supplement Abdominal Wall with Autologous Tissue Substitute, Percutaneous Endoscopic Approach (ICD-10-PCS; 2017-04-23)
PROC: 0DTF4ZZ Resection of Right Large Intestine, Percutaneous Endoscopic Approach (ICD-10-PCS; principal; 2017-04-23 09:30)
DX: C18.9 Malignant neoplasm of colon, unspecified (principal); K63.1 Perforation of intestine (nontraumatic); N17.9 Acute kidney failure, unspecified; J98.11 Atelectasis; D62 Acute posthemorrhagic anemia; K92.0 Hematemesis; E46 Unspecified protein-calorie malnutrition; Z87.891 Personal history of nicotine dependence; D63.0 Anemia in neoplastic disease; N83.202 Unspecified ovarian cyst, left side; R11.0 Nausea; K20.9 Esophagitis, unspecified; E03.9 Hypothyroidism, unspecified; K59.09 Other constipation; N18.2 Chronic kidney disease, stage 2 (mild); E88.09 Other disorders of plasma-protein metabolism, not elsewhere classified; D72.828 Other elevated white blood cell count; Z68.24 Body mass index [BMI] 24.0-24.9, adult
CPT/HCPCS: 36415; 36430; 71010-TC; 71020-TC; 74176-TC; 76830-TC; 76856-TC; 80048; 80053; 81003; 81015; 82378; 83540; 83615; 83735; 84100; 84443; 84484; 85025; 85027; 85610; 85730; 86850; 86900; 86901; 86922; 88307-TC; 88309-TC; 93005; 93010; 94760; 97116-GP; 97162-GP; 99285-25; P9038; P9058

== ENCOUNTER 2017-05-16 09:28 | Inpatient (IN) | payer OTHER, BC ==
--- NOTE | 2017-05-16 09:52 | PDOC ---
History of Present Illness - General History Source: Patient, Family Exam Limitations: No Limitations - History of Present Illness Initial Comments: 05/16/17 10:35 The patient is a 77 year old female, with a significant past medical history of colon cancer and tumor(s/p right hemicolectomy) , atelectasis both lungs, SHARITA, and hypothyroidism, who presents to the ED sent by PCP Dr. Segura for evaluation of low sodium levels and elevated BUN/creatinine s/p right hemicolectomy, resection of right adnexal mass, and resection of right upper abdominal wall on 04/23/17. As per daughter, the patient was seen by her PCP Dr. Segura yesterday, where she had bloodwork done which revealed low sodium and elevated BUN/cr. Daughter reports patient was given Lasix yesterday, and was advised to present to the ED for further evaluation. Daughter reports patient was eating normally s/p surgery, but during the past week she has decreased appetite. Patient reports decreased urinary output(which improved after receiving Lasix yesterday), but denies any dysuria, hematuria, or urgency. She denies any nausea, vomiting, diarrhea, or constipation. She reports lower extremity edema bilaterally, but denies any chest pain, shortness of breath, diaphoresis, or palpitations. Patient reports she had an US of her lower extremities yesterday, which was negative. She denies any fever, chills, cough, headache, or dizziness. She denies any recent travel or sick contacts. Allergies: NKDA Past Surgical History: Hemicolectomy, resection of right adnexal mass, and resection of right upper abdominal wall. Social History: Former Smoker. No ETOH or recreational drug use. PCP: Dr. Segura Surgeon: Dr. Torres <Kerry Dent - Last Filed: 05/16/17 12:31> <Cheli Monreal - Last Filed: 05/16/17 12:35> - General Chief Complaint: Revisit, Lab Variance Stated Complaint: EVALUATION (PCP SENT),LOW NA Time Seen by Provider: 05/16/17 09:51 Past History <Kerry Dent - Last Filed: 05/16/17 12:31> - Past Medical History Anemia: Yes Asthma: No Cancer: Yes (COLON CA AND TUMOR) Cardiac Disorders: No CVA: No COPD: No (ATELECTASIS OF BOTH LUNGS) CHF: No Dementia: No Diabetes: No GI Disorders: No Disorders: (ACUTE KIDNEY INJURY) HTN: No Hypercholesterolemia: No Liver Disease: No Seizures: No Thyroid Disease: Yes (HYPOTHYROIDISM) - Surgical History Abdominal Surgery: Yes (COLON) Appendectomy: No Cardiac Surgery: No Cholecystectomy: No Lung Surgery: No Neurologic Surgery: No Orthopedic Surgery: No - Suicide/Smoking/Psychosocial Hx Smoking History: Former smoker Have you smoked in the past 12 months: No If you are a former smoker, when did you quit?: 30 YEARS AGO Information on smoking cessation initiated: No 'Breaking Loose' booklet given: 04/21/17 Hx Alcohol Use: No Drug/Substance Use Hx: No Substance Use Type: None Hx Substance Use Treatment: No <Cheli Monreal - Last Filed: 05/16/17 12:35> - Past Medical History Allergies/Adverse Reactions: Allergies Allergy/AdvReac Type Severity Reaction Status Date / Time No Known Allergies Allergy Verified 05/16/17 09:32 Home Medications: Ambulatory Orders Furosemide [Lasix] 40 mg PO DAILY 05/16/17 Iron 0 mg PO DAILY 05/16/17 Levothyroxine [Synthroid -] 25 mcg PO DAILY 05/16/17 Multivitamin/Iron/Folic Acid [Centrum Women Tablet] 1 each PO DAILY 05/16/17 Pantoprazole Sodium 40 mg PO DAILY 05/16/17 Potassium Chloride 20 meq PO DAILY 05/16/17 Review of Systems - Review of Systems Able to Perform ROS?: Yes Comments:: 05/16/17 10:35 GENERAL/CONSTITUTIONAL: No fever or chills. No weakness. HEAD, EYES, EARS, NOSE AND THROAT: No change in vision. No ear pain or discharge. No sore throat. CARDIOVASCULAR: No chest pain or shortness of breath. RESPIRATORY: No cough, wheezing, or hemoptysis. GASTROINTESTINAL: No nausea, vomiting, diarrhea or constipation. GENITOURINARY: No dysuria, frequency, or change in urination. MUSCULOSKELETAL: Yes bilateral lower extremity edema. No joint or muscle swelling or pain. No neck or back pain. SKIN: No rash NEUROLOGIC: No headache, vertigo, loss of consciousness, or change in strength/ sensation. ENDOCRINE: Yes decreased appetite. No increased thirst. No abnormal weight change. HEMATOLOGIC/LYMPHATIC: No anemia, easy bleeding, or history of blood clots. ALLERGIC/IMMUNOLOGIC: No hives or skin allergy. <Kerry Dent - Last Filed: 05/16/17 12:31> *Physical Exam - Vital Signs Last Vital Signs Temp Pulse Resp BP Pulse Ox 97.9 F 88 18 125/61 100 05/16/17 09:33 05/16/17 09:33 05/16/17 09:33 05/16/17 09:33 05/16/17 09:33 - Physical Exam Comments: 05/16/17 10:36 GENERAL: Awake, alert, and fully oriented, in no acute distress HEAD: No signs of trauma EYES: PERRLA, EOMI, sclera anicteric, conjunctiva clear ENT: Auricles normal inspection, hearing grossly normal, nares patent, oropharynx clear without exudates. Moist mucosa NECK: Normal ROM, supple, no lymphadenopathy, JVD, or masses LUNGS: Breath sounds equal, clear to auscultation bilaterally. No wheezes, and no crackles HEART: Regular rate and rhythm, normal S1 and S2, no murmurs, rubs or gallops ABDOMEN: Tender at the incision points, but incisions are dry and well-healing. Soft, normoactive bowel sounds. No guarding, no rebound. No masses EXTREMITIES: 4+ pitting edema in the bilateral lower extremities. Normal range of motion. No clubbing or cyanosis. No cords, erythema, or tenderness NEUROLOGICAL: Cranial nerves II through XII grossly intact. Normal speech, normal gait SKIN: Well healing incisions. Warm, Dry, normal turgor, no rashes noted. <Kerry Dent - Last Filed: 05/16/17 12:31> - Vital Signs Last Vital Signs Temp Pulse Resp BP Pulse Ox 97.9 F 88 18 125/61 100 05/16/17 09:33 05/16/17 09:33 05/16/17 09:33 05/16/17 09:33 05/16/17 09:33 <Cheli Monreal - Last Filed: 05/16/17 12:35> Heart Score/ECG Review - ECG Intrepretation Comment:: 05/16/17 10:32 sinus at 89, q waves anterior that are age indeterminate, t wave flattening diffusely <Cheli Monreal - Last Filed: 05/16/17 12:35> ED Treatment Course - LABORATORY CBC & Chemistry Diagram: 05/16/17 10:54 05/16/17 10:54 <Kerry Dent - Last Filed: 05/16/17 12:31> - LABORATORY CBC & Chemistry Diagram: 05/16/17 10:54 05/16/17 10:54 <Cheli Monreal - Last Filed: 05/16/17 12:35> Medical Decision Making - Medical Decision Making 05/16/17 12:31 First call placed to Dr. Segura at 12:30. Case discussed at this time. <Kerry Dent - Last Filed: 05/16/17 12:31> - Medical Decision Making 05/16/17 10:29 a/p: 77yo female sent by PMD for elevated bun/cr and low sodium on outpt labs yesterday -given a dose of lasix yesterday by PMD. -outpt ultrasound negative for dvt -post op 3 weeks from colon resection with normal bowel habits -elevated WBC, poss post op reaction, concern given abnl labs for poss infection , will obtain cxr and ua/cx -monitor given low sodium -will most likely need admission 05/16/17 12:33 pt denies coughing. no cp/sob. Pt with mildly elevated wbc. No fevers. Ua negative. CXR shows atelectasis. Will monitor. Pt with elevated BUN/CR. Case discussed with the patient who is willing to stay for further eval and treatment. Pt had elevated TSH yesterday. Has low albumin today. Will need inpt management. 05/16/17 12:[address] Segura who accepts pt to service. <Cheli Monreal - Last Filed: 05/16/17 12:35> *DC/Admit/Observation/Transfer - Attestations Scribe Attestion: 05/16/17 10:36 Documentation prepared by Kerry Dent, acting as medical videographer for Cheli Monreal DO. <Kerry Dent - Last Filed: 05/16/17 12:31> - Discharge Dispostion Admit: Yes - Attestations Physician Attestion: 05/16/17 12:35 I, Dr. Cheli Monreal, DO, attest that this document has been prepared under my direction and personally reviewed by me in its entirety. I further attest, that it accurately reflects all work, treatment, procedures and medical decision -making performed by me. <Cheli Monreal - Last Filed: 05/16/17 12:35> Diagnosis at time of Disposition: Generalized edema, SHARITA (acute kidney injury), Hypoalbuminemia - Discharge Dispostion Condition at time of disposition: Fair - Referrals Referrals: Sayda Segura [Primary Care Provider] -
[2017-05-16 11:28] LABS: MCH 25.8 pg (25.7-33.7); MCHC 31.9 g/dl (32.0-36.0); MEAN CELL VOLUME 80.8 fl (80-96); MEAN PLT VOLUME 6.8 fl (7.5-11.1); PLATELET COUNT 285 K/MM3 (134-434); WHITE BLOOD COUNT 17.4 K/mm3 (4.0-10.0)
[2017-05-16 11:37] LABS: INR 1.22 (0.82-1.09); PROTHROMBIN TIME (PATIENT) 13.8 SEC (9.98-11.88)
[2017-05-16 11:40] LABS: ACTIVATED PTT 31.8 SECONDS (26.9-34.4)
[2017-05-16 11:52] LABS: URINE APPEARANCE SLCLOUDY; URINE BILIRUBIN NEGATIVE (NEGATIVE); URINE BLOOD NEGATIVE (NEGATIVE); URINE COLOR YELLOW; URINE GLUCOSE (UA) NEGATIVE (NEGATIVE); URINE KETONE NEGATIVE (NEGATIVE); URINE NITRITE NEGATIVE (NEGATIVE); URINE PROTEIN NEGATIVE (NEGATIVE); URINE UROBILINOGEN NEGATIVE mg/dL (0.2-1.0)
[2017-05-16 12:21] LABS: ALBUMIN 1.5 g/dl (3.4-5.0); ANION GAP 14 (8-16); BILIRUBIN,TOTAL 0.5 mg/dL (0.2-1.0); CO2 22 mmol/L (21-32); CREATININE 1.8 mg/dL (0.55-1.02); GLUCOSE,RANDOM 102 mg/dL (74-106); MAGNESIUM 1.9 mg/dL (1.8-2.4); SGOT/AST 24 U/L (15-37); SGPT/ALT 19 U/L (12-78); TOT PROT 5.6 g/dl (6.4-8.2)
[2017-05-16 12:22] LABS: ALK PHOS 316 U/L (45-117)
[2017-05-16 12:38] LABS: THYROID STIMULATING HORMONE 8.53 uIU/ml (0.358-3.74)
[2017-05-16 12:39] LABS: FREE T4 1.67 ng/dl (0.76-1.46)
[2017-05-16 13:40] LABS: PLATELET ESTIMATE ADEQUATE (NORMAL); TOTAL CELLS COUNTED 100
[2017-05-16 16:27] VITALS: BMI 28.7
[2017-05-16 17:10] LABS: URINE LEUK ESTERASE 1+ (NEGATIVE)
--- NOTE | 2017-05-16 17:28 | HP ---
Admitting History and Physical - Primary Care Physician PCP: Sayda Segura - Admission Chief Complaint: legs edema, weight gain, low Na and high creat, high WBC; LLE cellulitis History of Present Illness: The patient is a 77 year old female, with a significant past medical history of colon cancer and tumor(s/p right hemicolectomy) , atelectasis both lungs, SHARITA, and hypothyroidism, who presents to the ED after I saw her in office the day before and found to have low sodium levels and elevated BUN/creatinine - s/p recent right hemicolectomy, resection of right adnexal mass, and resection of right upper abdominal wall on 04/23/17.Daughter reports patient was eating normally s/p surgery, but during the past week she has decreased appetite. Patient reports decreased urinary output(which improved after receiving Lasix yesterday), but denies any dysuria, hematuria, or urgency. She denies any nausea , vomiting, diarrhea, or constipation. She reports lower extremity edema bilaterally, but denies any chest pain, shortness of breath, diaphoresis, or palpitations. Patient reports she had an US of her lower extremities yesterday, which was negative. She denies any fever, chills, cough, headache, or dizziness. She denies any recent travel or sick contacts. legs US negative for DVT pt's albumin also very low pt reported 25 lbs weight gain since her surgery (2 weeks) also noted some redness LLE pretibial not sure from what no wounds or trauma; no falls; no bug bites; scratched it, itchy and tender now History Source: Patient, Family Member, Medical Record Limitations to Obtaining History: No Limitations - Past Medical History Pulmonary: Yes: Other Gastrointestinal: Yes: Constipation Heme/Onc: Yes: Anemia Endocrine: Yes: Hyperthyroidism - Past Surgical History Past Surgical History: Yes: - Advance Directives Advance Directives: Yes: Living Will, Health Care Proxy - Smoking History Smoking history: Former smoker Have you smoked in the past 12 months: No If you are a former smoker, when did you quit?: 50 YEARS AGO - Alcohol/Substance Use Hx Alcohol Use: No History of Substance Use: reports: None - Social History Usual Living Arrangement: Yes: Alone ADL: Independent History of Recent Travel: No Home Medications - Allergies Allergies/Adverse Reactions: Allergies Allergy/AdvReac Type Severity Reaction Status Date / Time No Known Allergies Allergy Verified 05/16/17 09:32 - Home Medications Home Medications: Ambulatory Orders Furosemide [Lasix] 40 mg PO DAILY 05/16/17 Iron 0 mg PO DAILY 05/16/17 Levothyroxine [Synthroid -] 25 mcg PO DAILY 05/16/17 Multivitamin/Iron/Folic Acid [Centrum Women Tablet] 1 each PO DAILY 05/16/17 Pantoprazole Sodium 40 mg PO DAILY 05/16/17 Potassium Chloride 20 meq PO DAILY 05/16/17 Family Disease History - Family Disease History Family Disease History: Other: Son, Daughter (lupus) Review of Systems - Review of Systems Constitutional: denies: Chills, Fever, Loss of Appetite Eyes: denies: Blurred Vision, Double Vision HENT: denies: Ear Pain, Epistaxis Neck: denies: Stiffness, Tenderness Cardiovascular: denies: Chest Pain, Shortness of Breath Respiratory: denies: Cough, SOB Gastrointestinal: denies: Abdominal Pain, Diarrhea, Rectal Bleeding, Vomiting Genitourinary: denies: Burning, Dysuria, Flank Pain Musculoskeletal: denies: Back Pain, Joint Pain Integumentary: reports: Rash (LLE). denies: Wound Neurological: reports: Unsteady Gait, Weakness (general). denies: Change in LOC , Dizziness, Headache, Seizure, Syncope Endocrine: reports: Unexplained Weight Gain Hematology/Lymphatic: denies: Easily Bruised, Excessive Bleeding Psychiatric: denies: Altered Sleep Pattern, Anxiety, Depression, Suicidal Physical Examination Vital Signs: Vital Signs Temperature 97.5 F L 05/16/17 15:00 Pulse Rate 77 05/16/17 15:00 Respiratory Rate 18 05/16/17 15:00 Blood Pressure 120/50 05/16/17 15:00 O2 Sat by Pulse Oximetry (%) 100 05/16/17 15:52 Constitutional: Yes: No Distress, Calm Eyes: Yes: Conjunctiva Clear HENT: Yes: Atraumatic Neck: Yes: Supple Cardiovascular: Yes: Regular Rate and Rhythm Respiratory: Yes: CTA Bilaterally Gastrointestinal: Yes: Soft, Ascites, Other (s/p surgery. wound healed). No: Tenderness Renal/: No: CVA Tenderness - Left, CVA Tenderness - Right, Hematuria Musculoskeletal: No: Joint Stiffness, Joint Swelling Extremities: Yes: Erythema (LLE pretibial). No: Cold, Cool, Cyanosis Edema: Yes (3+ both legs) Peripheral Pulses WNL: Yes Integumentary: Yes: Rash (LLE). No: Pressure Ulcer, Skin Tear, Venous Stasis Changes Neurological: Yes: WNL, Alert, Oriented ...Motor Strength: WNL Psychiatric: Yes: WNL, Alert, Oriented. No: Agitated, Suicidal Ideation Imaging - Results Chest X-ray: Report Reviewed Other: Report Reviewed Assessment/Plan The patient is a 77 year old female, with a significant past medical history of colon cancer and tumor(s/p right hemicolectomy) , atelectasis both lungs, SHARITA, and hypothyroidism, who presents to the ED with LLE cellulitis, also both legs edema and anasarca, ascites; ARF/CRF; low Na, low albumine, high creat and high WBC admit to inpt IV ATB Renal, cardio, ID and surgery eval lasix close f/u labs f/u cultures falls DVT pfx d/w pt and staff, d/w pt's daughter and son at bedside
[2017-05-16 18:15] LABS: URINE BACTERIA MANY /hpf (NEGATIVE); URINE RBC 0-2 /hpf (0-3)
[2017-05-16] MEDS: CEFTRIAXONE 1 G/50 ML PREMIX 50 ML IVPB SCH (19:11)
[2017-05-16] MEDS: HEPARIN NA (PORCINE) 5,000 UNITS/ML 1ML VIAL SQ SCH (22:00)
[2017-05-16] MEDS: ACETAMINOPHEN 325 MG TABLET (FP) PO PRN (22:00)
[2017-05-17] MEDS: LEVOTHYROXINE NA 50 MCG TABLET (FP) PO SCH (06:05)
[2017-05-17] MEDS: ACETAMINOPHEN 325 MG TABLET (FP) PO PRN ×3 (06:05→21:37)
[2017-05-17 07:25] LABS: BASOPHIL 0.1 % (0-2.0); EOSINOPHIL 0.3 % (0-4.5); MCH 25.7 pg (25.7-33.7); MEAN CELL VOLUME 80.4 fl (80-96); MEAN PLT VOLUME 7.5 fl (7.5-11.1); NEUTROPHILS 89.8 % (42.8-82.8); PLATELET COUNT 270 K/MM3 (134-434); RDW 21.3 % (11.6-15.6); WHITE BLOOD COUNT 16.4 K/mm3 (4.0-10.0)
[2017-05-17 07:42] LABS: ALBUMIN 1.3 g/dl (3.4-5.0); ANION GAP 12 (8-16); CALCIUM 8.1 mg/dL (8.5-10.1); CO2 20 mmol/L (21-32); GLUCOSE,RANDOM 87 mg/dL (74-106)
[2017-05-17 07:47] LABS: ALK PHOS 305 U/L (45-117); BILIRUBIN,TOTAL 0.6 mg/dL (0.2-1.0); CREATININE 1.8 mg/dL (0.55-1.02); SGPT/ALT 18 U/L (12-78); TOT PROT 5.2 g/dl (6.4-8.2)
[2017-05-17 08:15] LABS: SGOT/AST 37 U/L (15-37)
--- NOTE | 2017-05-17 09:00 | CON.NEP ---
Consult Consult Specialty:: Nephrology Referred by:: Dr. Segura Reason for Consultation:: SHARITA, Volume overload - History of Present Illness Chief Complaint: Leg swelling History of Present Illness: This is a 77 year old woman with PMhx of Colon Ca (recently diagnosed) s/p right hemicolectomy, hypothyrodisim, CKD (Cr ~1.3 last admission) who presented with complaints of leg swelling found to have BUN/Cr of 24/1.8. Denies any NSAID use. No recent contrast exposure. No flank pain, hematuria. Notes decreased urine output. No N/V/D. Has been moving her bowels. Has some Abd tenderness. Seen the surgeon this past week and told that the abd was doing well. - History Source History Provided By: Patient Limitations to Obtaining History: No Limitations - Past Medical History Pulmonary: Yes: Other Gastrointestinal: Yes: Constipation Heme/Onc: Yes: Cancer Endocrine: Yes: Hyperthyroidism - Past Surgical History Past Surgical History: Yes: - Alcohol/Substance Use Hx Alcohol Use: No History of Substance Use: reports: None - Smoking History Smoking history: Former smoker Have you smoked in the past 12 months: No If you are a former smoker, when did you quit?: 50 YEARS AGO - Social History Usual Living Arrangement: Alone ADL: Independent History of Recent Travel: No Home Medications - Allergies Allergies/Adverse Reactions: Allergies Allergy/AdvReac Type Severity Reaction Status Date / Time No Known Allergies Allergy Verified 05/16/17 09:32 - Home Medications Home Medications: Ambulatory Orders Furosemide [Lasix] 40 mg PO DAILY 05/16/17 Iron 0 mg PO DAILY 05/16/17 Levothyroxine [Synthroid -] 25 mcg PO DAILY 05/16/17 Multivitamin/Iron/Folic Acid [Centrum Women Tablet] 1 each PO DAILY 05/16/17 Pantoprazole Sodium 40 mg PO DAILY 05/16/17 Potassium Chloride 20 meq PO DAILY 05/16/17 Family Disease History - Family Disease History Family Disease History: Other: Son, Daughter (lupus) Review of Systems - Review of Systems Constitutional: reports: No Symptoms Eyes: reports: No Symptoms HENT: reports: No Symptoms Neck: reports: No Symptoms Cardiovascular: reports: Edema. denies: Chest Pain, Palpitations, Shortness of Breath Respiratory: denies: Cough, Hemoptysis, Orthopnea, SOB, SOB on Exertion Gastrointestinal: reports: Abdominal Pain, Constipation. denies: Nausea, Vomiting Genitourinary: denies: Dysuria, Flank Pain Neurological: reports: No Symptoms Nephrology Consult - Height Height: 5 ft 2 in - Weight Weight: 157 lb 1.6 oz - BMI Body Mass Index (BMI): 28.7 - Lab Results CBC,BMP: CBC, BMP 05/17/17 06:00 05/17/17 06:00 Anion Gap: Anion Gap Anion Gap 12 (8-16) 05/17/17 06:00 - Imaging Chest X-ray: Report Reviewed - Physical Examination Vital Signs: Vital Signs Temperature 97.7 F 05/17/17 06:29 Pulse Rate 81 05/17/17 06:29 Respiratory Rate 20 05/17/17 06:29 Blood Pressure 128/60 05/17/17 06:29 O2 Sat by Pulse Oximetry (%) 100 05/16/17 21:00 Constitutional: Yes: No Distress, Calm Eyes: Yes: Conjunctiva Clear, EOM Intact HENT: Yes: Atraumatic, Normocephalic Neck: Yes: Supple Cardiovascular: Yes: Regular Rate and Rhythm, S1, S2. No: JVD, Murmur, Rub Respiratory: Yes: Regular, CTA Bilaterally. No: Rales, Rhonchi, SOB Gastrointestinal: Yes: Distention, Tenderness. No: Soft Renal/: No: Anuria, Bladder Distention, CVA Tenderness - Left, CVA Tenderness - Right, Braga Present Edema: No Neurological: Yes: Alert, Oriented Problem List - Problems (1) SHARITA (acute kidney injury) Code(s): N17.9 - ACUTE KIDNEY FAILURE, UNSPECIFIED (2) Anasarca Code(s): R60.1 - GENERALIZED EDEMA (3) Hypoalbuminemia Code(s): E88.09 - OTH DISORDERS OF PLASMA-PROTEIN METABOLISM, NEC (4) Colon neoplasm Code(s): D49.0 - NEOPLASM OF UNSPECIFIED BEHAVIOR OF DIGESTIVE SYSTEM Assessment/Plan 77 year old woman with PMhx of Colon Ca (recently diagnosed) s/p right hemicolectomy, hypothyrodisim, CKD (Cr ~1.3 last admission) who presented with complaints of leg swelling found to have BUN/Cr of 24/1.8. #Acute Renal Failure with Edema Differential includes obstruction vs. pre-renal injury in setting of HF vs. Abd compartment syndrome Urine studies show low Na, (no urine cr so could not calculate FeNa) UA showed no protein so less likely nephrotic syndrome causing LE edema check Renal US r/o obstruction Give IV Lasix 40m x 1, trend BUN/Cr levels Low salt diet consider surgical eval to access abd as it is distended #Colon Ca with Abd distension s/p recent hemicolectomy supportive care surgical eval #Hyponatremia from fluid overload/CKD trend with IV diuresis #Anemia/Leukocytosis Management as per primary/heme Thank you Will follow Raul Fuentes DO
[2017-05-17] MEDS: HEPARIN NA (PORCINE) 5,000 UNITS/ML 1ML VIAL SQ SCH ×2 (09:42→21:36)
[2017-05-17] MEDS: CEFTRIAXONE 1 G/50 ML PREMIX 50 ML IVPB SCH (09:43)
[2017-05-17] MEDS: MULTIVITAMINS (DAILY MVI) TABLET (FP) PO SCH (09:45)
[2017-05-17] MEDS: FERROUS SO4 325 MG TABLET (FP) PO SCH (09:45)
[2017-05-17] MEDS ORDERED: FUROSEMIDE 40 MG/4 ML INJECTABLE VIAL IVPB ONE (12:15)
[2017-05-17] MEDS ORDERED: FUROSEMIDE 40 MG/4 ML INJECTABLE VIAL ONE (12:15)
--- NOTE | 2017-05-17 12:29 | PN ---
Progress Note, Physician Chief Complaint: in bed NAD afebrile; s/p lasix x1 diuresed a lot; to check weight daily LLE slightly better with ATB; ambulates to the bathroom; advised to call for help; falls risks and PFX d/w pt - Current Medication List Current Medications: Active Medications Acetaminophen (Tylenol -) 650 mg PO Q6H PRN PRN Reason: FEVER OR PAIN Last Admin: 05/17/17 06:05 Dose: 650 mg Ferrous Sulfate (Feosol -) 325 mg PO DAILY@0800 [facility] Last Admin: 05/17/17 09:45 Dose: 325 mg Heparin Sodium (Porcine) (Heparin -) 5,000 unit SQ BID [facility] Last Admin: 05/17/17 09:42 Dose: 5,000 unit CEFTRIAXONE 1 G/50 ML PREMIX (Ceftriaxone 1 Gm-D5w Bag) 50 mls @ 100 mls/hr IVPB DAILY [facility] Last Admin: 05/17/17 09:43 Dose: 100 mls/hr Levothyroxine Sodium (Synthroid -) 50 mcg PO DAILY@0700 [facility] Last Admin: 05/17/17 06:05 Dose: 50 mcg Multivitamins/Minerals/Vitamin C (Tab-A-Vit -) 1 tab PO DAILY [facility] Last Admin: 05/17/17 09:45 Dose: 1 tab - Objective Vital Signs: Vital Signs Temperature 97.7 F 05/17/17 06:29 Pulse Rate 81 05/17/17 06:29 Respiratory Rate 20 05/17/17 06:29 Blood Pressure 128/60 05/17/17 06:29 O2 Sat by Pulse Oximetry (%) 100 05/16/17 21:00 Constitutional: Yes: No Distress, Calm Eyes: Yes: Conjunctiva Clear HENT: Yes: Atraumatic Neck: Yes: Supple Cardiovascular: Yes: Regular Rate and Rhythm Respiratory: Yes: Regular Gastrointestinal: Yes: Soft, Ascites. No: Tenderness Genitourinary: No: CVA Tenderness - Left, CVA Tenderness - Right Musculoskeletal: No: Joint Stiffness, Joint Swelling Extremities: No: Cold, Cool Edema: Yes Integumentary: Yes: Rash. No: Venous Stasis Changes Neurological: Yes: WNL, Alert, Oriented ...Motor Strength: WNL Psychiatric: Yes: WNL, Alert, Oriented. No: Agitated, Suicidal Ideation Labs: CBC, BMP 05/17/17 06:00 05/17/17 06:00 INR, PTT INR 1.22 (0.82-1.09) H 05/16/17 10:54 - ....Imaging Other: Report Reviewed Assessment/Plan The patient is a 77 year old female, with a significant past medical history of colon cancer and tumor(s/p right hemicolectomy) , atelectasis both lungs, SHARITA, and hypothyroidism, who presents to the ED with LLE cellulitis, also both legs edema and anasarca, ascites; ARF/CRF; low Na, low albumine, high creat and high WBC admit to inpt IV ATB Renal, cardio, ID and surgery consults lasix close f/u labs f/u cultures falls DVT pfx d/w pt and staff, d/w pt's daughterat bedside
--- NOTE | 2017-05-17 12:49 | EKG ---
Test Reason : Blood Pressure : / mmHG Vent. Rate : 089 BPM Atrial Rate : 089 BPM P-R Int : 132 ms QRS Dur : 076 ms QT Int : 366 ms P-R-T Axes : -05 -06 012 degrees QTc Int : 445 ms NORMAL SINUS RHYTHM WITH SINUS ARRHYTHMIA INFERIOR INFARCT , AGE UNDETERMINED CANNOT RULE OUT ANTERIOR INFARCT (CITED ON OR BEFORE 17-MAR-2017) ABNORMAL ECG WHEN COMPARED WITH ECG OF 21-APR-2017 13:43, NO SIGNIFICANT CHANGE WAS FOUND Confirmed by LATRICIA HEAD MD ([id number]) on 05/17/2017 12:49:12 PM Referred By: Confirmed By:LATRICIA HEAD MD
--- NOTE | 2017-05-17 14:58 | CON.CARD ---
Consult Consult Specialty:: Cardiology Referred by:: Dr. Segura Reason for Consultation:: Cardiac evaluation - History of Present Illness Chief Complaint: Pedal edema History of Present Illness: Patient is a 77 year old female with underlying history of hypothyroidism, history of spontaneous pneumothorax post chest tube decompression, anemia and CKD who was sent in by PMD for management of hyponatremia, elevated BUN/Cr and bilateral pedal edema. She denies chest pain, shortness of breath or palpitations. She denies paroxysmal nocturnal dyspnea or orthopnea. She denies fever or chills. She denies headache or lightheadedness. She recently had abdominal surgery for resection of mass in the hepatic flexure. Surgery was uneventful. - History Source History Provided By: Patient, Medical Record Limitations to Obtaining History: No Limitations - Past Medical History Gastrointestinal: Yes: Other (Post abdominal surgery) Endocrine: Yes: Hypothyroidism - Past Surgical History Past Surgical History: Yes: Colectomy, Additional Surgical History: Resection of adnexal mass - Alcohol/Substance Use Hx Alcohol Use: No History of Substance Use: reports: None - Smoking History Smoking history: Former smoker Have you smoked in the past 12 months: No If you are a former smoker, when did you quit?: 50 YEARS AGO - Social History Usual Living Arrangement: Alone ADL: Independent History of Recent Travel: No Home Medications - Allergies Allergies/Adverse Reactions: Allergies Allergy/AdvReac Type Severity Reaction Status Date / Time No Known Allergies Allergy Verified 05/16/17 09:32 - Home Medications Home Medications: Ambulatory Orders Furosemide [Lasix] 40 mg PO DAILY 05/16/17 Iron 0 mg PO DAILY 05/16/17 Levothyroxine [Synthroid -] 25 mcg PO DAILY 05/16/17 Multivitamin/Iron/Folic Acid [Centrum Women Tablet] 1 each PO DAILY 05/16/17 Pantoprazole Sodium 40 mg PO DAILY 05/16/17 Potassium Chloride 20 meq PO DAILY 05/16/17 Family Disease History - Family Disease History Family Disease History: Other: Son, Daughter (lupus) Review of Systems - Review of Systems Constitutional: denies: Chills, Fever Cardiovascular: denies: Chest Pain, Palpitations, Shortness of Breath Respiratory: denies: Cough, Hemoptysis, Orthopnea, PND, SOB, SOB on Exertion Gastrointestinal: denies: Abdominal Pain, Constipation, Diarrhea, Melena, Nausea , Rectal Bleeding, Vomiting Musculoskeletal: denies: Joint Pain Neurological: denies: Dizziness, Headache, Seizure, Syncope Vital Signs: Vital Signs Temperature 97.4 F L 05/17/17 14:53 Pulse Rate 93 H 05/17/17 14:53 Respiratory Rate 18 05/17/17 14:53 Blood Pressure 130/69 05/17/17 14:53 O2 Sat by Pulse Oximetry (%) 100 05/16/17 21:00 Neck: Yes: Supple Respiratory: Yes: Regular, CTA Bilaterally Gastrointestinal: Yes: Normal Bowel Sounds, Distention. No: Tenderness Cardiovascular: Yes: Regular Rate and Rhythm JVD: No Carotid Bruit: No PMI: Non-Displaced Heart Sounds: Yes: S1, S2 Murmur: Yes: Systolic Murmur, Grade 1 Edema: Yes Edema: LLE: 1+, RLE: 1+ - Other Data Labs, Other Data: CBC, BMP 05/17/17 06:00 05/17/17 06:00 INR, PTT INR 1.22 (0.82-1.09) H 05/16/17 10:54 Laboratory Results - last 24 hr 05/16/17 05/17/17 05/17/17 11:30 06:00 06:00 WBC 16.4 H RBC 3.29 L Hgb 8.5 L Hct 26.4 L MCV 80.4 MCH 25.7 MCHC 32.0 RDW 21.3 H Plt Count 270 MPV 7.5 D Neutrophils % 89.8 H Lymphocytes % 3.7 L Monocytes % 6.1 Eosinophils % 0.3 Basophils % 0.1 Sodium 131 L Potassium 4.4 Chloride 99 Carbon Dioxide 20 L Anion Gap 12 BUN 25 H Creatinine 1.8 H Creat Clearance w eGFR 27.28 Random Glucose 87 Calcium 8.1 L Ferritin 172.960 Total Bilirubin 0.6 AST 37 D ALT 18 Alkaline Phosphatase 305 H Total Protein 5.2 L Albumin 1.3 L Urine Color Yellow Urine Appearance Slcloudy Urine pH 5.0 Ur Specific Jay <= 1.005 Urine Protein Negative Urine Glucose (UA) Negative Urine Ketones Negative Urine Blood Negative Urine Nitrite Negative Urine Bilirubin Negative Urine Urobilinogen Negative Ur Leukocyte Esterase 1+ H Urine RBC 0-2 Urine WBC 2-5 Ur Epithelial Cells Few Urine Bacteria Many Normal sinus rhythm with sinus arrhythmia Imaging - Results Chest X-ray: Report Reviewed (Atelectasis left base) EKG: Report Reviewed Problem List - Problems (1) SHARITA (acute kidney injury) Code(s): N17.9 - ACUTE KIDNEY FAILURE, UNSPECIFIED (2) Adnexal mass Code(s): N94.9 - UNSP COND ASSOC W FEMALE GENITAL ORGANS AND MENSTRUAL CYCLE (3) Anemia Code(s): D64.9 - ANEMIA, UNSPECIFIED Qualifiers: Anemia type: unspecified type Qualified Code(s): D64.9 - Anemia, unspecified; D64.9 - Anemia, unspecified (4) Colon neoplasm Code(s): D49.0 - NEOPLASM OF UNSPECIFIED BEHAVIOR OF DIGESTIVE SYSTEM (5) Hypothyroidism Code(s): E03.9 - HYPOTHYROIDISM, UNSPECIFIED Qualifiers: Hypothyroidism type: unspecified Qualified Code(s): E03.9 - Hypothyroidism, unspecified; E03.9 - Hypothyroidism, unspecified; E03.9 - Hypothyroidism, unspecified (6) Hyponatremia Code(s): E87.1 - HYPO-OSMOLALITY AND HYPONATREMIA Assessment/Plan 1. Hyponatremia 2. Acute on CKD 3. Pedal edema 4. Hypothyroidism 5. Post abdominal surgery with hemicolectomy, resection of adnexal mass 6. Anemia PLAN: 1. Correct Na. 2. Diuretics as needed and monitor renal function. Renal input noted 3. Antibiotic coverage 4. Surgery evaluation for post op management - abdomen appears distended although she does not complain of abdominal discomfort Further plans are to follow Tucker Marquez MD
[2017-05-17 15:54] LABS: SODIUM,RANDOM URINE 9 MMOL/L
[2017-05-18] MEDS: LEVOTHYROXINE NA 50 MCG TABLET (FP) PO SCH (06:09)
[2017-05-18 07:35] LABS: BASOPHIL 0.9 % (0-2.0); EOSINOPHIL 0.9 % (0-4.5); MCH 25.7 pg (25.7-33.7); MCHC 32.4 g/dl (32.0-36.0); MEAN CELL VOLUME 79.3 fl (80-96); MEAN PLT VOLUME 7.7 fl (7.5-11.1); PLATELET COUNT 286 K/MM3 (134-434); RDW 21.5 % (11.6-15.6)
[2017-05-18 08:19] LABS: ANION GAP 13 (8-16); CALCIUM 7.4 mg/dL (8.5-10.1); CO2 22 mmol/L (21-32); CREATININE 1.7 mg/dL (0.55-1.02); FERRITIN 145.496 ng/ml (6.9-282.5); GLUCOSE,RANDOM 89 mg/dL (74-106); MAGNESIUM 1.9 mg/dL (1.8-2.4)
[2017-05-18 08:20] LABS: ALBUMIN 1.3 g/dl (3.4-5.0); ALK PHOS 292 U/L (45-117); BILIRUBIN,TOTAL 0.3 mg/dL (0.2-1.0); SGOT/AST 24 U/L (15-37); SGPT/ALT 17 U/L (12-78); TOT PROT 5.2 g/dl (6.4-8.2)
[2017-05-18] MEDS: FERROUS SO4 325 MG TABLET (FP) PO SCH (08:30)
[2017-05-18] MEDS: ACETAMINOPHEN 325 MG TABLET (FP) PO PRN ×2 (09:10→17:55)
[2017-05-18] MEDS: CEFTRIAXONE 1 G/50 ML PREMIX 50 ML IVPB SCH (09:11)
[2017-05-18] MEDS: HEPARIN NA (PORCINE) 5,000 UNITS/ML 1ML VIAL SQ SCH ×2 (09:11→22:46)
[2017-05-18] MEDS: MULTIVITAMINS (DAILY MVI) TABLET (FP) PO SCH (09:12)
--- NOTE | 2017-05-18 09:12 | PN ---
Progress Note (short form) - Note Progress Note: Renal follow up for SHARITA Pt seen and examined at the bedside reports some "pulling" like tenderness in the abd legs remain swollen but imporved per pt no sob making urine Vital Signs Temperature 98.2 F 05/18/17 08:27 Pulse Rate 85 05/18/17 08:27 Respiratory Rate 16 05/18/17 08:27 Blood Pressure 132/69 05/18/17 08:27 O2 Sat by Pulse Oximetry (%) 100 05/16/17 21:00 Intake & Output 05/15/17 05/16/17 05/17/17 05/18/17 23:59 23:59 23:59 23:59 Intake Total 100 1150 50 Balance 100 1150 50 Weight 157 lb 1.6 oz 157 lb 1.6 oz NAD, awake and alert RRR, no M/R CTA + abd distension, + tense, no tenderness 2+ LE edema, no cyanosis or clubbing CBC, BMP 05/18/17 06:15 05/18/17 06:15 Current Medications Acetaminophen (Tylenol -) 650 mg PO Q6H PRN PRN Reason: FEVER OR PAIN Last Admin: 05/17/17 21:37 Dose: 650 mg Ferrous Sulfate (Feosol -) 325 mg PO DAILY@0800 [facility] Last Admin: 05/17/17 09:45 Dose: 325 mg Heparin Sodium (Porcine) (Heparin -) 5,000 unit SQ BID [facility] Last Admin: 05/17/17 21:36 Dose: 5,000 unit CEFTRIAXONE 1 G/50 ML PREMIX (Ceftriaxone 1 Gm-D5w Bag) 50 mls @ 100 mls/hr IVPB DAILY [facility] Last Admin: 05/17/17 09:43 Dose: 100 mls/hr Levothyroxine Sodium (Synthroid -) 50 mcg PO DAILY@0700 [facility] Last Admin: 05/18/17 06:09 Dose: 50 mcg Multivitamins/Minerals/Vitamin C (Tab-A-Vit -) 1 tab PO DAILY [facility] Last Admin: 05/17/17 09:45 Dose: 1 tab A/P 77 year old woman with PMhx of Colon Ca (recently diagnosed) s/p right hemicolectomy, hypothyrodisim, CKD (Cr ~1.3 last admission) who presented with complaints of leg swelling found to have BUN/Cr of 24/1.8. #Acute Renal Failure with Edema Differential includes obstruction vs. pre-renal injury in setting of HF vs. Abd compartment syndrome Urine studies show FeNa < 1% indicating preserved tubular function Pt also has subnephrotic proteinuria Renal function stable at this time continue IV lasix 40mg IV once daily for management of edema imaging of the kidney is pending #Colon Ca with Abd distension s/p recent hemicolectomy supportive care surgical eval Abd US is ordered #Hyponatremia from fluid overload/CKD trend with IV diuresis #Anemia/Leukocytosis Management as per primary/heme Thank you Will follow Raul Fuentes DO Problem List - Problems (1) SHARITA (acute kidney injury) Code(s): N17.9 - ACUTE KIDNEY FAILURE, UNSPECIFIED (2) Anasarca Code(s): R60.1 - GENERALIZED EDEMA (3) Hypoalbuminemia Code(s): E88.09 - OTH DISORDERS OF PLASMA-PROTEIN METABOLISM, NEC (4) Colon neoplasm Code(s): D49.0 - NEOPLASM OF UNSPECIFIED BEHAVIOR OF DIGESTIVE SYSTEM
--- NOTE | 2017-05-18 09:32 | CONS ---
DATE OF CONSULTATION: 05/18/2017 REQUESTING PHYSICIAN: Sayda Segura MD RESPONDING PHYSICIAN: Rommel Acevedo MD REASON FOR CONSULTATION: Status post hemicolectomy for cancer/abdominal evaluation. HISTORY: This is a 77-year-old woman who apparently was diagnosed with locally-advanced right colon cancer recently. She underwent a laparoscopic right hemicolectomy approximately 2-1/2 weeks ago. She was discharged home and doing well; however, over the course of the last several days, she had a diminished appetite and was not quite feeling herself. She saw her PMD, who had run some routine blood work and found that she was hyponatremic with evidence also of renal failure. With that history, she was admitted to the hospital. According to the patient, she has been eating at home regularly without difficulty. She has been moving her bowels. She states that she had a bowel movement here in the hospital last night. She has been eating regular food, which has been brought from home by her daughter yesterday. On questioning, she complains of mild right-sided abdominal discomfort since the surgery, which waxes and wanes, but is tolerable. No other specific complaints. PAST MEDICAL HISTORY: Hypothyroidism, heart disease. PHYSICAL EXAMINATION: General: She is awake and alert, in no acute distress. Abdomen: Mildly distended, but soft with mild tenderness along the right gutter in the region of the recent right hemicolectomy. No guarding or rebound. LABORATORY DATA: White count 16.4 with hemoglobin 8.5 and hematocrit 26.4. Her electrolytes are essentially within normal limits with a sodium now 131, BUN 25, creatinine 1.4. Urine clean-catch obtained on May 16, 2017, is consistent with gram-D strep/enterococcus (more than 100,000). No imaging studies. IMPRESSION: A 77-year-old woman status post laparoscopic right hemicolectomy for locally-advanced colon cancer approximately 2-1/2 weeks ago. Patient now admitted with hyponatremia and an elevated creatinine of 1.8. Here in the hospital, the patient had been found to have a significant leg edema and has been managed with Lasix by the Cardiology Service with some improvement. The etiology of her acute renal failure with this edema is unknown at this time. In spite the patient tolerating a diet and moving her bowels, her abdomen is mild to moderately distended and mildly tender along the right gutter of undetermined etiology. No acute surgical findings. Suggest would continue diet as already instituted, considering the patient does have a functioning gut, but complete both cardiac and renal evaluations. CT of the abdomen and pelvis could be considered once her medical issues have been addressed and if she still remains with abdominal distention. Patient also noted to have a urinary tract infection with positive urine cultures/negative blood cultures; being addressed by Medical Service. I will remain available and thank you. ROMMEL ACEVEDO M.D. [id number]
[2017-05-18] MEDS ORDERED: POLYETHYLENE GLYCOL 3350 119 GM BTL PO PRN (09:52)
--- NOTE | 2017-05-18 09:52 | PN ---
Progress Note, Physician Chief Complaint: OOB to chair, ate OK had BM; feels better - Current Medication List Current Medications: Active Medications Acetaminophen (Tylenol -) 650 mg PO Q6H PRN PRN Reason: FEVER OR PAIN Last Admin: 05/18/17 09:10 Dose: 650 mg Ferrous Sulfate (Feosol -) 325 mg PO DAILY@0800 [facility] Last Admin: 05/17/17 09:45 Dose: 325 mg Furosemide (Lasix Injection -) 40 mg IVPB ONCE ONE Stop: 05/18/17 10:01 Heparin Sodium (Porcine) (Heparin -) 5,000 unit SQ BID [facility] Last Admin: 05/18/17 09:11 Dose: 5,000 unit CEFTRIAXONE 1 G/50 ML PREMIX (Ceftriaxone 1 Gm-D5w Bag) 50 mls @ 100 mls/hr IVPB DAILY [facility] Last Admin: 05/18/17 09:11 Dose: 100 mls/hr Levothyroxine Sodium (Synthroid -) 50 mcg PO DAILY@0700 [facility] Last Admin: 05/18/17 06:09 Dose: 50 mcg Multivitamins/Minerals/Vitamin C (Tab-A-Vit -) 1 tab PO DAILY [facility] Last Admin: 05/18/17 09:12 Dose: 1 tab - Objective Vital Signs: Vital Signs Temperature 98.2 F 05/18/17 08:27 Pulse Rate 85 05/18/17 08:27 Respiratory Rate 16 05/18/17 08:27 Blood Pressure 132/69 05/18/17 08:27 O2 Sat by Pulse Oximetry (%) 100 05/16/17 21:00 Constitutional: Yes: No Distress, Calm Eyes: Yes: Conjunctiva Clear HENT: Yes: Atraumatic Neck: Yes: Supple Cardiovascular: Yes: Regular Rate and Rhythm Respiratory: Yes: CTA Bilaterally Gastrointestinal: Yes: Soft, Ascites Extremities: No: Cold, Cool Edema: Yes Integumentary: Yes: Rash. No: Venous Stasis Changes Neurological: Yes: WNL, Alert, Oriented ...Motor Strength: WNL Psychiatric: Yes: WNL, Alert, Oriented. No: Agitated Labs: CBC, BMP 05/18/17 06:15 05/18/17 06:15 INR, PTT INR 1.22 (0.82-1.09) H 05/16/17 10:54 - ....Imaging Other: Report Reviewed Assessment/Plan The patient is a 77 year old female, with a significant past medical history of colon cancer and tumor(s/p right hemicolectomy) , atelectasis both lungs, SHARITA, and hypothyroidism, who presents to the ED with LLE cellulitis, also both legs edema and anasarca, ascites; ARF/CRF; low Na, low albumine, high creat and high WBC admit to inpt IV ATB Renal, cardio, ID and surgery consults lasix close f/u labs f/u cultures falls DVT pfx d/w pt and staff
[2017-05-18] MEDS ORDERED: FUROSEMIDE 40 MG/4 ML INJECTABLE VIAL IVPB ONE (10:00)
[2017-05-18] MEDS ORDERED: PANTOPRAZOLE 40 MG TABLET (FP) PO SCH (10:00)
--- NOTE | 2017-05-18 10:08 | PN ---
Progress Note, Physician Chief Complaint: Sitting in chair Not in distress History of Present Illness: Patient was seen and examined. Awake and alert. Chart was reviewed Denies chest pain, SOB or palpitations Abdomen appears distended Await further evaluation - Current Medication List Current Medications: Active Medications Acetaminophen (Tylenol -) 650 mg PO Q6H PRN PRN Reason: FEVER OR PAIN Last Admin: 05/18/17 09:10 Dose: 650 mg Ferrous Sulfate (Feosol -) 325 mg PO DAILY@0800 [facility] Last Admin: 05/17/17 09:45 Dose: 325 mg Heparin Sodium (Porcine) (Heparin -) 5,000 unit SQ BID [facility] Last Admin: 05/18/17 09:11 Dose: 5,000 unit CEFTRIAXONE 1 G/50 ML PREMIX (Ceftriaxone 1 Gm-D5w Bag) 50 mls @ 100 mls/hr IVPB DAILY [facility] Last Admin: 05/18/17 09:11 Dose: 100 mls/hr Levothyroxine Sodium (Synthroid -) 50 mcg PO DAILY@0700 [facility] Last Admin: 05/18/17 06:09 Dose: 50 mcg Multivitamins/Minerals/Vitamin C (Tab-A-Vit -) 1 tab PO DAILY [facility] Last Admin: 05/18/17 09:12 Dose: 1 tab Pantoprazole Sodium (Protonix -) 40 mg PO BID [facility] Polyethylene Glycol (Miralax (For Daily Use) -) 17 gm PO DAILY PRN PRN Reason: CONSTIPATION - Objective Vital Signs: Vital Signs Temperature 98.2 F 05/18/17 08:27 Pulse Rate 85 05/18/17 08:27 Respiratory Rate 16 05/18/17 08:27 Blood Pressure 132/69 05/18/17 08:27 O2 Sat by Pulse Oximetry (%) 100 05/16/17 21:00 Neck: Yes: Supple Cardiovascular: Yes: Regular Rate and Rhythm, Murmur (Soft SM), S1, S2 Respiratory: Yes: CTA Bilaterally Gastrointestinal: Yes: Distention. No: Tenderness Edema: Yes Edema: LLE: 2+, RLE: 2+ Additional Findings/Remarks: - Review of Systems Constitutional: denies: Chills, Fever Cardiovascular: denies: Chest Pain, Palpitations, Shortness of Breath Respiratory: denies: Cough, Hemoptysis, Orthopnea, PND, SOB, SOB on Exertion Gastrointestinal: denies: Abdominal Pain, Constipation, Diarrhea, Melena, Nausea , Rectal Bleeding, Vomiting Musculoskeletal: denies: Joint Pain Neurological: denies: Dizziness, Headache, Seizure, Syncope Labs: CBC, BMP 05/18/17 06:15 05/18/17 06:15 INR, PTT INR 1.22 (0.82-1.09) H 05/16/17 10:54 Problem List - Problems (1) SHARITA (acute kidney injury) Code(s): N17.9 - ACUTE KIDNEY FAILURE, UNSPECIFIED (2) Adnexal mass Code(s): N94.9 - UNSP COND ASSOC W FEMALE GENITAL ORGANS AND MENSTRUAL CYCLE (3) Anemia Code(s): D64.9 - ANEMIA, UNSPECIFIED Qualifiers: Anemia type: unspecified type Qualified Code(s): D64.9 - Anemia, unspecified; D64.9 - Anemia, unspecified (4) Colon neoplasm Code(s): D49.0 - NEOPLASM OF UNSPECIFIED BEHAVIOR OF DIGESTIVE SYSTEM (5) Hypothyroidism Code(s): E03.9 - HYPOTHYROIDISM, UNSPECIFIED Qualifiers: Hypothyroidism type: unspecified Qualified Code(s): E03.9 - Hypothyroidism, unspecified; E03.9 - Hypothyroidism, unspecified; E03.9 - Hypothyroidism, unspecified (6) Hyponatremia Code(s): E87.1 - HYPO-OSMOLALITY AND HYPONATREMIA Assessment/Plan 1. Hyponatremia 2. Acute on CKD 3. Pedal edema 4. Hypothyroidism 5. Post abdominal surgery with hemicolectomy, resection of adnexal mass 6. Anemia PLAN: 1. Correct Na. (currently 131) 2. Diuretics as needed and monitor renal function. Renal input noted. Renal US 3. Antibiotic coverage 4. Surgery evaluation for post op management - abdomen appears distended although she does not complain of abdominal discomfort - currently scheduled for CT of abdomen and pelvis Further plans are to follow Tucker Marquez MD
--- NOTE | 2017-05-18 14:38 | PN ---
Progress Note (short form) - Note Progress Note: ID Consult dictated Cellulitis L LE S/P laparoscopic colectomy Azotemia Asymptomatic bacteruria Cefazolin 1gm IVPB q12h Elevation, LE No treatment for + Urine c/s
--- NOTE | 2017-05-18 15:24 | CONS ---
DATE OF CONSULTATION: DATE OF DICTATION: 05/18/2017 A 77-year-old female evaluated for cellulitis of the left lower extremity. The patient had undergone a laparoscopic right hemicolectomy and excision of right adnexal mass on April 23, 2017. She was discharged home. She was seen in followup by her primary care physician, where she was noted to have lower extremity edema, hyponatremia, and azotemia. She was admitted to the hospital. Her hospital course has been complicated by development of erythema, warmth, and swelling of the pretibial aspect of the left lower extremity. She was treated with ceftriaxone for presumed cellulitis. She denies any history of trauma to that area. No insect or animal bites or scratches. She denies prior history of soft tissue infection requiring hospitalization. Denies history of MRSA. She has been afebrile. White count on admission was elevated at 17,000. She was also found to have positive urine culture for enterococcus; however, denies any urinary tract symptoms. She has had no dysuria or hematuria. PAST MEDICAL HISTORY: Positive for colon cancer, hypothyroidism, acute kidney injury. PAST SURGICAL HISTORY: Status post laparoscopic right hemicolectomy and excision of right adnexal mass. No known allergies. MEDICATIONS: Lasix, Synthroid, Protonix. SOCIAL HISTORY: She lives at home. Former smoker. SYSTEMS REVIEW: Neurologic: No loss of consciousness, seizure activity, focal weakness. Cardiac: Negative chest pain or palpitations. Respiratory: Negative cough or sputum production. Gastrointestinal: As per HPI. Genitourinary: Negative for urinary tract infection. LABORATORY DATA: White count on admission 17,000, presently 12.0; hematocrit 25.0; platelet count 286. BUN 28, creatinine 1.7. Urinalysis with 2 to 5 white cells. Urine culture with enterococcus. Blood cultures with no growth. Chest x-ray negative for acute infiltrate. PHYSICAL EXAMINATION: General: She is out of bed to chair, in no acute distress. Vital Signs: Temperature 98.2, blood pressure 132/69, pulse 85 and regular, respirations 16/min. HEENT: Sclerae anicteric. Heart Sounds: S1, S2. Lungs: Clear. Abdomen: Soft, obese, healed laparoscopic surgical wounds. Extremities: Positive for edema to 2+ bilaterally. There is an area of erythema and warmth present over the pretibial aspect of the left lower extremity approximately 12 cm in length. It is slightly tender. No fluctuance or crepitus. No lymphangitic streaking. IMPRESSION: 1. Cellulitis of the left lower extremity. 2. Status post laparoscopic colectomy. 3. Azotemia. 4. Asymptomatic bacteruria. Empiric antibiotic coverage for skin pathogens with cefazolin 1 g IV piggyback every 12 hours. Continue elevation, diuretic therapy. No treatment for positive urine culture. Thank you for the kind referral. LATRICIA MUNOZ M.D. [id number]
[2017-05-18] MEDS ORDERED: FUROSEMIDE 40 MG/4 ML INJECTABLE VIAL ONE (16:08)
[2017-05-18] MEDS ORDERED: PT OWN MED DRAWER 7, Y5N ONE (16:09)
[2017-05-18] MEDS ORDERED: CEFAZOLIN 1 GM in DEXTROSE 5%-WATER - 50 ML IVPB SCH (22:00)
[2017-05-19] MEDS: ACETAMINOPHEN 325 MG TABLET (FP) PO PRN (02:24)
[2017-05-19 06:06] LABS: SERUM IRON 12 ug/dL (27-139); TOTAL IRON BINDING CAPACITY 130 ug/dL (250-450); UIBC 118 ug/dL (118-369)
[2017-05-19] MEDS: LEVOTHYROXINE NA 50 MCG TABLET (FP) PO SCH (06:44)
[2017-05-19 07:30] LABS: BASOPHIL 0.7 % (0-2.0); EOSINOPHIL 0.6 % (0-4.5); MCHC 32.8 g/dl (32.0-36.0); MEAN CELL VOLUME 79.2 fl (80-96); MEAN PLT VOLUME 7.4 fl (7.5-11.1); NEUTROPHILS 84.2 % (42.8-82.8); PLATELET COUNT 289 K/MM3 (134-434); RDW 21.1 % (11.6-15.6); WHITE BLOOD COUNT 13.6 K/mm3 (4.0-10.0)
[2017-05-19 07:53] LABS: ALBUMIN 1.3 g/dl (3.4-5.0); CALCIUM 7.3 mg/dL (8.5-10.1); GLUCOSE,RANDOM 89 mg/dL (74-106)
[2017-05-19 07:57] LABS: ALK PHOS 294 U/L (45-117); ANION GAP 13 (8-16); BILIRUBIN,TOTAL 0.4 mg/dL (0.2-1.0); CO2 23 mmol/L (21-32); CREATININE 1.7 mg/dL (0.55-1.02); MAGNESIUM 1.8 mg/dL (1.8-2.4); PHOSPHOROUS 4.8 mg/dL (2.5-4.9); SGOT/AST 24 U/L (15-37); SGPT/ALT 15 U/L (12-78)
[2017-05-19] MEDS ORDERED: CEFAZOLIN 1 GM/D5W 50 ML IVPB SCH (08:25)
[2017-05-19] MEDS: FERROUS SO4 325 MG TABLET (FP) PO SCH (09:00)
[2017-05-19] MEDS: MULTIVITAMINS (DAILY MVI) TABLET (FP) PO SCH (09:34)
[2017-05-19] MEDS: PANTOPRAZOLE 40 MG TABLET (FP) PO SCH (09:34)
[2017-05-19] MEDS: HEPARIN NA (PORCINE) 5,000 UNITS/ML 1ML VIAL SQ SCH ×2 (09:35→23:31)
[2017-05-19] MEDS ORDERED: CEFAZOLIN (PRE-DOCKED) 50 ML IVPB SCH (09:41)
--- NOTE | 2017-05-19 09:48 | PN ---
Progress Note, Physician History of Present Illness: C/O vague mid-abdominal "pulling " sensation No N/V No BM today No c/o L LE pain Denies dysuria Afebrile WBC slightly elevated - Current Medication List Current Medications: Active Medications Acetaminophen (Tylenol -) 650 mg PO Q6H PRN PRN Reason: FEVER OR PAIN Last Admin: 05/19/17 02:24 Dose: 650 mg Ferrous Sulfate (Feosol -) 325 mg PO DAILY@0800 [facility] Last Admin: 05/19/17 09:00 Dose: 325 mg Heparin Sodium (Porcine) (Heparin -) 5,000 unit SQ BID [facility] Last Admin: 05/19/17 09:35 Dose: 5,000 unit Cefazolin Sodium (Ancef 1gm Ivpb (Pre-Docked)) 50 mls @ 100 mls/hr IVPB BID [facility] Levothyroxine Sodium (Synthroid -) 50 mcg PO DAILY@0700 [facility] Last Admin: 05/19/17 06:44 Dose: 50 mcg Multivitamins/Minerals/Vitamin C (Tab-A-Vit -) 1 tab PO DAILY [facility] Last Admin: 05/19/17 09:34 Dose: 1 tab Pantoprazole Sodium (Protonix -) 40 mg PO DAILY [facility] Last Admin: 05/19/17 09:34 Dose: 40 mg Polyethylene Glycol (Miralax (For Daily Use) -) 17 gm PO DAILY PRN PRN Reason: CONSTIPATION - Objective Vital Signs: Vital Signs Temperature 98.7 F 05/19/17 09:33 Pulse Rate 90 05/19/17 09:33 Respiratory Rate 16 05/19/17 09:33 Blood Pressure 128/47 05/19/17 09:33 O2 Sat by Pulse Oximetry (%) 100 05/16/17 21:00 Constitutional: Yes: No Distress Eyes: Yes: Conjunctiva Clear Cardiovascular: Yes: Regular Rate and Rhythm, S1, S2 Respiratory: Yes: CTA Bilaterally Gastrointestinal: Yes: Normal Bowel Sounds, Soft. No: Tenderness Extremities: Yes: Other (decreased Le edema decreased L LE erythema) Labs: CBC, BMP 05/19/17 05:35 05/19/17 05:35 INR, PTT INR 1.22 (0.82-1.09) H 05/16/17 10:54 Assessment/Plan Cellulitis L LE Asymptomatic bacteruria Leukocytosis Azotemia S/P laparoscopic colectomy Continue cefazolin Elevation
[2017-05-19] MEDS ORDERED: POTASSIUM CHLORIDE TABS 20 MEQ TABLET.ER (FP) PO ONE (09:54)
--- NOTE | 2017-05-19 11:42 | PN ---
Progress Note, Physician Chief Complaint: in bed no new c/o but more abdomen distension, seen by surgery - Current Medication List Current Medications: Active Medications Acetaminophen (Tylenol -) 650 mg PO Q6H PRN PRN Reason: FEVER OR PAIN Last Admin: 05/19/17 02:24 Dose: 650 mg Ferrous Sulfate (Feosol -) 325 mg PO DAILY@0800 [facility] Last Admin: 05/19/17 09:00 Dose: 325 mg Heparin Sodium (Porcine) (Heparin -) 5,000 unit SQ BID [facility] Last Admin: 05/19/17 09:35 Dose: 5,000 unit Cefazolin Sodium (Ancef 1gm Ivpb (Pre-Docked)) 50 mls @ 100 mls/hr IVPB BID [facility] Last Admin: 05/19/17 09:53 Dose: 100 mls/hr Levothyroxine Sodium (Synthroid -) 50 mcg PO DAILY@0700 [facility] Last Admin: 05/19/17 06:44 Dose: 50 mcg Multivitamins/Minerals/Vitamin C (Tab-A-Vit -) 1 tab PO DAILY [facility] Last Admin: 05/19/17 09:34 Dose: 1 tab Pantoprazole Sodium (Protonix -) 40 mg PO DAILY [facility] Last Admin: 05/19/17 09:34 Dose: 40 mg Polyethylene Glycol (Miralax (For Daily Use) -) 17 gm PO DAILY PRN PRN Reason: CONSTIPATION - Objective Vital Signs: Vital Signs Temperature 98.7 F 05/19/17 09:33 Pulse Rate 90 05/19/17 09:33 Respiratory Rate 16 05/19/17 09:33 Blood Pressure 128/47 05/19/17 09:33 O2 Sat by Pulse Oximetry (%) 100 05/16/17 21:00 Constitutional: Yes: No Distress, Calm Eyes: Yes: Conjunctiva Clear HENT: Yes: Atraumatic Neck: Yes: Supple Cardiovascular: Yes: Regular Rate and Rhythm Respiratory: Yes: CTA Bilaterally Gastrointestinal: Yes: Soft, Distention. No: Tenderness Genitourinary: No: CVA Tenderness - Left, CVA Tenderness - Right Musculoskeletal: No: Joint Stiffness, Joint Swelling Extremities: No: Cold, Cool Edema: Yes Integumentary: Yes: Rash (LLE better) Neurological: Yes: WNL, Alert, Oriented ...Motor Strength: WNL Psychiatric: Yes: WNL, Alert, Oriented. No: Agitated, Suicidal Ideation Labs: CBC, BMP 05/19/17 05:35 05/19/17 05:35 INR, PTT INR 1.22 (0.82-1.09) H 05/16/17 10:54 - ....Imaging Other: Report Reviewed Assessment/Plan The patient is a 77 year old female, with a significant past medical history of colon cancer and tumor(s/p right hemicolectomy) , atelectasis both lungs, SHARITA, and hypothyroidism, who presents to the ED with LLE cellulitis, also both legs edema and anasarca, ascites; ARF/CRF; low Na, low albumine, high creat and high WBC admit to inpt IV ATB per ID Renal, cardio, ID and surgery consults appreciated will check abdomen CT lasix close f/u labs f/u cultures falls DVT pfx d/w pt and staff
--- NOTE | 2017-05-19 11:52 | PN ---
Progress Note (short form) - Note Progress Note: Renal follow up for SHARITA Pt seen and examined at the bedside awake and alert no acute complaints no N/V, moving bowels making urine leg edema getting better Vital Signs Temperature 98.7 F 05/19/17 09:33 Pulse Rate 90 05/19/17 09:33 Respiratory Rate 16 05/19/17 09:33 Blood Pressure 128/47 05/19/17 09:33 O2 Sat by Pulse Oximetry (%) 100 05/16/17 21:00 Intake & Output 05/16/17 05/17/17 05/18/17 05/19/17 23:59 23:59 23:59 23:59 Intake Total 100 1150 730 200 Balance 100 1150 730 200 Weight 157 lb 1.6 oz 157 lb 1.6 oz NAD RRR, no M/R CTA + abd distension, + tense, no tenderness 1+ edema in LE CBC, BMP 05/19/17 05:35 05/19/17 05:35 Laboratory Tests 05/17/17 05/17/17 05/18/17 15:15 15:15 06:15 Calcium 7.4 L Phosphorus 4.0 D Magnesium 1.9 Iron TIBC Iron Saturation Albumin 1.3 L U Random Total Protein 72 H Ur Random Sodium 9 Ur Random Urea Nitrogn 527 Urine Creatinine 103.0 05/18/17 05/19/17 06:15 05:35 Calcium 7.3 L Phosphorus 4.8 Magnesium 1.8 Iron 12 L TIBC 130 L Iron Saturation 9 L Albumin 1.3 L U Random Total Protein Ur Random Sodium Ur Random Urea Nitrogn Urine Creatinine Current Medications Acetaminophen (Tylenol -) 650 mg PO Q6H PRN PRN Reason: FEVER OR PAIN Last Admin: 05/19/17 02:24 Dose: 650 mg Ferrous Sulfate (Feosol -) 325 mg PO DAILY@0800 [facility] Last Admin: 05/19/17 09:00 Dose: 325 mg Furosemide (Lasix Injection -) 40 mg IVPUSH DAILY [facility] Heparin Sodium (Porcine) (Heparin -) 5,000 unit SQ BID [facility] Last Admin: 05/19/17 09:35 Dose: 5,000 unit Cefazolin Sodium (Ancef 1gm Ivpb (Pre-Docked)) 50 mls @ 100 mls/hr IVPB BID [facility] Last Admin: 10/16/17 09:53 Dose: 100 mls/hr Levothyroxine Sodium (Synthroid -) 50 mcg PO DAILY@0700 [facility] Last Admin: 05/19/17 06:44 Dose: 50 mcg Multivitamins/Minerals/Vitamin C (Tab-A-Vit -) 1 tab PO DAILY [facility] Last Admin: 05/19/17 09:34 Dose: 1 tab Pantoprazole Sodium (Protonix -) 40 mg PO DAILY [facility] Last Admin: 05/19/17 09:34 Dose: 40 mg Polyethylene Glycol (Miralax (For Daily Use) -) 17 gm PO DAILY PRN PRN Reason: CONSTIPATION Potassium Chloride (K-Dur -) 40 meq PO DAILY [facility] A/P 77 year old woman with PMhx of Colon Ca (recently diagnosed) s/p right hemicolectomy, hypothyrodisim, CKD (Cr ~1.3 last admission) who presented with complaints of leg swelling found to have BUN/Cr of 24/1.8. #Acute Renal Failure with Edema Renal Us showed no obstruction urine studies are bland w/o significant proteinuria or blood FeNa is low indicating preserved tubular function to get additional IV lasix today trend BUN/Cr #Colon Ca with Abd distension s/p recent hemicolectomy Surgical follow up of the abd consider non-contrast CT of the Abd #Hyponatremia from fluid overload/CKD, mild improvement thus far trend with IV diuresis #Anemia/Leukocytosis Management as per primary/heme Raul Fuentes DO Problem List - Problems (1) SHARITA (acute kidney injury) Code(s): N17.9 - ACUTE KIDNEY FAILURE, UNSPECIFIED (2) Anasarca Code(s): R60.1 - GENERALIZED EDEMA (3) Hypoalbuminemia Code(s): E88.09 - OTH DISORDERS OF PLASMA-PROTEIN METABOLISM, NEC (4) Colon neoplasm Code(s): D49.0 - NEOPLASM OF UNSPECIFIED BEHAVIOR OF DIGESTIVE SYSTEM
[2017-05-19] MEDS: POTASSIUM CHLORIDE TABS 20 MEQ TABLET.ER (FP) PO SCH (12:16)
--- NOTE | 2017-05-19 12:46 | PN ---
Progress Note, Physician - Current Medication List Current Medications: Active Medications Acetaminophen (Tylenol -) 650 mg PO Q6H PRN PRN Reason: FEVER OR PAIN Last Admin: 05/19/17 02:24 Dose: 650 mg Ferrous Sulfate (Feosol -) 325 mg PO DAILY@0800 [facility] Last Admin: 05/19/17 09:00 Dose: 325 mg Furosemide (Lasix Injection -) 40 mg IVPUSH DAILY [facility] Heparin Sodium (Porcine) (Heparin -) 5,000 unit SQ BID [facility] Last Admin: 05/19/17 09:35 Dose: 5,000 unit Cefazolin Sodium (Ancef 1gm Ivpb (Pre-Docked)) 50 mls @ 100 mls/hr IVPB BID [facility] Last Admin: 05/19/17 09:53 Dose: 100 mls/hr Levothyroxine Sodium (Synthroid -) 50 mcg PO DAILY@0700 [facility] Last Admin: 05/19/17 06:44 Dose: 50 mcg Multivitamins/Minerals/Vitamin C (Tab-A-Vit -) 1 tab PO DAILY [facility] Last Admin: 05/19/17 09:34 Dose: 1 tab Pantoprazole Sodium (Protonix -) 40 mg PO DAILY [facility] Last Admin: 05/19/17 09:34 Dose: 40 mg Polyethylene Glycol (Miralax (For Daily Use) -) 17 gm PO DAILY PRN PRN Reason: CONSTIPATION Potassium Chloride (K-Dur -) 40 meq PO DAILY [facility] Last Admin: 05/19/17 12:16 Dose: Not Given - Objective Vital Signs: Vital Signs Temperature 98.7 F 05/19/17 09:33 Pulse Rate 90 05/19/17 09:33 Respiratory Rate 16 05/19/17 09:33 Blood Pressure 128/47 05/19/17 09:33 O2 Sat by Pulse Oximetry (%) 100 05/16/17 21:00 Labs: CBC, BMP 05/19/17 05:35 05/19/17 05:35 INR, PTT INR 1.22 (0.82-1.09) H 05/16/17 10:54 Assessment/Plan 1. Hyponatremia 2. Acute on CKD with hypokalemia 3. Pedal edema with Cellulitis L LE and Leukocytosis 4. Asymptomatic bacteruria 5. Hypothyroidism 6. Colon cancer post right hemicolectomy, resection of adnexal mass 7. Anemia PLAN: 1. Correct Na. (currently 131) 2. Diuretics as needed and monitor renal function and electrolytes. Renal input and Renal US results noted, replete K 3. Empiric antibiotic coverage per C&S 4. Surgery evaluation for post op management - abdomen appears distended although she does not complain of abdominal discomfort - currently scheduled for CT of abdomen and pelvis
--- NOTE | 2017-05-19 13:10 | CONSULT ---
Consult - text type - Consultation Consultation Note: Covering Dr. Padilla. Was asked to evaluate this patient however, as per records, Dr Willard is the patient's director of customer acquisition who saw her on prior admissions and was involved in her care. Please reach out and inform him about the patient. Discussed with covering RN.
[2017-05-19] MEDS: FUROSEMIDE 40 MG/4 ML INJECTABLE VIAL IVPUSH SCH (13:23)
[2017-05-19] MEDS ORDERED: ERTAPENEM SODIUM 1 GM/50 ML PRE-DOCKED IVPB SCH (14:30)
--- NOTE | 2017-05-19 14:34 | PN ---
Progress Note (short form) - Note Progress Note: surgery ct reviewed. Large collection at site of abdominal wall resection with some drops of air in this location and near the anastamosis. large ascites without free air over liver. Differential includes previous sealed/small current anastamotic leak vs abscess vs residual gas and seroma from laparoscopic surgery. Will arrange for IR drainage of collection. If there is a leak would attempt non operative management as she would have a hostile abd this close to her previous surgery. Pt is eating well and non toxic appearing. will change abx to ivanz from ancef.
--- NOTE | 2017-05-19 16:09 | CONSULT ---
Consult - text type - Consultation Consultation Note: The patient is a 77 year old female, with a significant past medical history of colon cancer (s/p right hemicolectomy) , - s/p recent right hemicolectomy, resection of right adnexal mass, and resection of right upper abdominal wall on 04/23/17. She denies any nausea, vomiting, diarrhea, or constipation. She reports lower extremity edema bilaterally, but denies any chest pain, shortness of breath, diaphoresis, or palpitations. She denies any fever, chills, cough, headache, or dizziness. pt's albumin also very low pt reported 25 lbs weight gain since her surgery (2 weeks) - Past Medical History Pulmonary: Yes: Other Gastrointestinal: Yes: Constipation Heme/Onc: Yes: Anemia Endocrine: Yes: Hyperthyroidism - Past Surgical History Past Surgical History: Yes: - Advance Directives Advance Directives: Yes: Living Will, Health Care Proxy - Smoking History Smoking history: Former smoker - Allergies Allergies/Adverse Reactions: Allergies Allergy/AdvReac Type Severity Reaction Status Date / Time No Known Allergies Allergy Verified 05/16/17 09:32 - Home Medications Home Medications: Ambulatory Orders Furosemide [Lasix] 40 mg PO DAILY 05/16/17 Iron 0 mg PO DAILY 05/16/17 Levothyroxine [Synthroid -] 25 mcg PO DAILY 05/16/17 Multivitamin/Iron/Folic Acid [Centrum Women Tablet] 1 each PO DAILY 05/16/17 Pantoprazole Sodium 40 mg PO DAILY 05/16/17 Potassium Chloride 20 meq PO DAILY 05/16/17 Physical Examination Vital Signs: Last Vital Signs Temp Pulse Resp BP Pulse Ox 97.7 F 76 26 H 147/62 100 05/19/17 14:02 05/19/17 16:25 05/19/17 16:25 05/19/17 16:25 05/19/17 16:25 Cor: RSR, No murmurs, No gallops Lungs: Clear to P&A Abd: Soft, Normal bowel sounds, ascites, incision sites erythema Ext:edema, LLE cellulitis Skin: No rashes, Integument intact Assessment/Plan The patient is a 77 year old female, with a significant past medical history of colon cancer and tumor(s/p right hemicolectomy) , atelectasis both lungs, SHARITA, and hypothyroidism, who presents to the ED with LLE cellulitis, also both legs edema and anasarca, ascites; ARF/CRF; low Na, low albumin, high creat and high WBC CT shows large abdominal wall collection--air /fluid level --concerning for abscess-- at site of recent resection also with intraabdominal air ? anastomotic leak started antibiotics IR draingage transfusion for Hgb <7 will follow
[2017-05-19] MEDS: METRONIDAZOLE 500 MG PREMIXED 100 ML IVPB SCH ×2 (16:25→23:31)
[2017-05-19] MEDS: CEFTRIAXONE 2 GM in DEXTROSE 5%-WATER - 100 ML IVPB SCH (16:25)
[2017-05-20] MEDS: METRONIDAZOLE 500 MG PREMIXED 100 ML IVPB SCH ×3 (03:02→17:22)
[2017-05-20] MEDS: LEVOTHYROXINE NA 50 MCG TABLET (FP) PO SCH (06:43)
[2017-05-20 07:50] LABS: BASOPHIL 0.4 % (0-2.0); EOSINOPHIL 0.3 % (0-4.5); MCH 26.3 pg (25.7-33.7); MCHC 33.1 g/dl (32.0-36.0); MEAN CELL VOLUME 79.5 fl (80-96); MEAN PLT VOLUME 7.2 fl (7.5-11.1); PLATELET COUNT 288 K/MM3 (134-434); RDW 18.3 % (11.6-15.6); WHITE BLOOD COUNT 14.5 K/mm3 (4.0-10.0)
[2017-05-20] MEDS: FERROUS SO4 325 MG TABLET (FP) PO SCH (08:00)
[2017-05-20 08:11] LABS: ALBUMIN 1.4 g/dl (3.4-5.0); ALK PHOS 319 U/L (45-117); ANION GAP 13 (8-16); BILIRUBIN,TOTAL 0.7 mg/dL (0.2-1.0); CALCIUM 7.4 mg/dL (8.5-10.1); CO2 24 mmol/L (21-32); CREATININE 1.5 mg/dL (0.55-1.02); MAGNESIUM 1.8 mg/dL (1.8-2.4); SGOT/AST 21 U/L (15-37); SGPT/ALT 13 U/L (12-78); TOT PROT 5.4 g/dl (6.4-8.2)
[2017-05-20 08:18] LABS: GLUCOSE,RANDOM 83 mg/dL (74-106)
[2017-05-20] MEDS: PANTOPRAZOLE 40 MG TABLET (FP) PO SCH (09:16)
[2017-05-20] MEDS: POTASSIUM CHLORIDE TABS 20 MEQ TABLET.ER (FP) PO SCH (09:16)
[2017-05-20] MEDS: HEPARIN NA (PORCINE) 5,000 UNITS/ML 1ML VIAL SQ SCH ×2 (09:16→22:10)
[2017-05-20] MEDS: MULTIVITAMINS (DAILY MVI) TABLET (FP) PO SCH (09:16)
[2017-05-20] MEDS: CEFTRIAXONE 2 GM in DEXTROSE 5%-WATER - 100 ML IVPB SCH (09:16)
--- NOTE | 2017-05-20 09:43 | PN ---
Progress Note, Physician Chief Complaint: events noted pt in bed NAD no new c/o no pain, R abdomen drain in / fluid collection in R abdomen, d/w surgery - Current Medication List Current Medications: Active Medications Acetaminophen (Tylenol -) 650 mg PO Q6H PRN PRN Reason: FEVER OR PAIN Last Admin: 05/19/17 02:24 Dose: 650 mg Ferrous Sulfate (Feosol -) 325 mg PO DAILY@0800 [facility] Last Admin: 05/20/17 08:00 Dose: 325 mg Furosemide (Lasix Injection -) 40 mg IVPUSH DAILY [facility] Last Admin: 05/19/17 13:23 Dose: 40 mg Heparin Sodium (Porcine) (Heparin -) 5,000 unit SQ BID [facility] Last Admin: 05/20/17 09:16 Dose: 5,000 unit Ceftriaxone Sodium 2 gm/ (Dextrose) 100 mls @ 200 mls/hr IVPB DAILY [facility] Last Admin: 05/20/17 09:16 Dose: 200 mls/hr Metronidazole (Flagyl 500mg Premixed Ivpb -) 100 mls @ 100 mls/hr IVPB Q8H-IV [facility] Last Admin: 05/20/17 03:02 Dose: 100 mls/hr Levothyroxine Sodium (Synthroid -) 50 mcg PO DAILY@0700 [facility] Last Admin: 05/20/17 06:43 Dose: 50 mcg Multivitamins/Minerals/Vitamin C (Tab-A-Vit -) 1 tab PO DAILY [facility] Last Admin: 05/20/17 09:16 Dose: 1 tab Pantoprazole Sodium (Protonix -) 40 mg PO DAILY [facility] Last Admin: 05/20/17 09:16 Dose: 40 mg Polyethylene Glycol (Miralax (For Daily Use) -) 17 gm PO DAILY PRN PRN Reason: CONSTIPATION Potassium Chloride (K-Dur -) 40 meq PO DAILY [facility] Last Admin: 05/20/17 09:16 Dose: 40 meq - Objective Vital Signs: Vital Signs Temperature 97.8 F 05/20/17 06:00 Pulse Rate 78 05/20/17 06:00 Respiratory Rate 20 05/20/17 06:00 Blood Pressure 114/55 05/20/17 06:00 O2 Sat by Pulse Oximetry (%) 99 05/19/17 21:00 Constitutional: Yes: No Distress, Calm Eyes: Yes: Conjunctiva Clear HENT: Yes: Atraumatic Neck: Yes: Supple Cardiovascular: Yes: Regular Rate and Rhythm Respiratory: Yes: CTA Bilaterally Gastrointestinal: Yes: Soft. No: Distention, Tenderness Genitourinary: No: CVA Tenderness - Left, CVA Tenderness - Right Musculoskeletal: No: Joint Stiffness, Joint Swelling Extremities: No: Cold, Cool Edema: Yes Integumentary: Yes: Rash Neurological: Yes: WNL, Alert, Oriented ...Motor Strength: WNL Psychiatric: Yes: WNL, Alert, Oriented. No: Agitated Labs: CBC, BMP 05/20/17 06:00 05/20/17 06:00 INR, PTT INR 1.22 (0.82-1.09) H 05/16/17 10:54 - ....Imaging Other: Report Reviewed Assessment/Plan The patient is a 77 year old female, with a significant past medical history of colon cancer and tumor(s/p right hemicolectomy) , atelectasis both lungs, SHARITA, and hypothyroidism, who presents to the ED with LLE cellulitis, also both legs edema and anasarca, ascites; ARF/CRF; low Na, low albumine, high creat and high WBC R abdomen collection r/o abscess; drained in IR, drain still in IV ATB per ID Renal, cardio, ID and surgery consults appreciated lasix iv close f/u labs f/u cultures falls DVT pfx d/w pt and staff d/w surgery dr Herzog and ID dr Núñez
[2017-05-20] MEDS: FUROSEMIDE 40 MG/4 ML INJECTABLE VIAL IVPUSH SCH (09:56)
--- NOTE | 2017-05-20 11:21 | PN ---
Progress Note, Physician Chief Complaint: Events noted Now with a drain inserted for abdominal fluid collection/abscess History of Present Illness: Patient was seen and examined. Awake and alert. Chart was reviewed Denies chest pain, SOB or palpitations Abdominal CT noted and drain inserted for fluid collection suspicious for abscess in addition to ascites - Current Medication List Current Medications: Active Medications Acetaminophen (Tylenol -) 650 mg PO Q6H PRN PRN Reason: FEVER OR PAIN Last Admin: 05/19/17 02:24 Dose: 650 mg Ferrous Sulfate (Feosol -) 325 mg PO DAILY@0800 [facility] Last Admin: 05/20/17 08:00 Dose: 325 mg Furosemide (Lasix Injection -) 40 mg IVPUSH DAILY [facility] Last Admin: 05/20/17 09:56 Dose: 40 mg Heparin Sodium (Porcine) (Heparin -) 5,000 unit SQ BID [facility] Last Admin: 05/20/17 09:16 Dose: 5,000 unit Ceftriaxone Sodium 2 gm/ (Dextrose) 100 mls @ 200 mls/hr IVPB DAILY [facility] Last Admin: 05/20/17 09:16 Dose: 200 mls/hr Metronidazole (Flagyl 500mg Premixed Ivpb -) 100 mls @ 100 mls/hr IVPB Q8H-IV [facility] Last Admin: 05/20/17 09:56 Dose: 100 mls/hr Levothyroxine Sodium (Synthroid -) 50 mcg PO DAILY@0700 [facility] Last Admin: 05/20/17 06:43 Dose: 50 mcg Multivitamins/Minerals/Vitamin C (Tab-A-Vit -) 1 tab PO DAILY [facility] Last Admin: 05/20/17 09:16 Dose: 1 tab Pantoprazole Sodium (Protonix -) 40 mg PO DAILY [facility] Last Admin: 05/20/17 09:16 Dose: 40 mg Polyethylene Glycol (Miralax (For Daily Use) -) 17 gm PO DAILY PRN PRN Reason: CONSTIPATION Potassium Chloride (K-Dur -) 40 meq PO DAILY [facility] Last Admin: 05/20/17 09:16 Dose: 40 meq - Objective Vital Signs: Vital Signs Temperature 97.8 F 05/20/17 06:00 Pulse Rate 78 05/20/17 06:00 Respiratory Rate 20 05/20/17 06:00 Blood Pressure 114/55 05/20/17 06:00 O2 Sat by Pulse Oximetry (%) 99 05/19/17 21:00 Neck: Yes: Supple Cardiovascular: Yes: Regular Rate and Rhythm, S1, S2 Respiratory: Yes: Diminished Gastrointestinal: Yes: Ascites, Distention, Other (drain inserted) Edema: Yes Edema: LLE: 1+, RLE: 1+ Additional Findings/Remarks: - Review of Systems Constitutional: denies: Chills, Fever Cardiovascular: denies: Chest Pain, Palpitations, Shortness of Breath Respiratory: denies: Cough, Hemoptysis, Orthopnea, PND, SOB, SOB on Exertion Gastrointestinal: denies: Abdominal Pain, Constipation, Diarrhea, Melena, Nausea , Rectal Bleeding, Vomiting Musculoskeletal: denies: Joint Pain Neurological: denies: Dizziness, Headache, Seizure, Syncope Labs: CBC, BMP 05/20/17 06:00 05/20/17 06:00 Problem List - Problems (1) SHARITA (acute kidney injury) Code(s): N17.9 - ACUTE KIDNEY FAILURE, UNSPECIFIED (2) Adnexal mass Code(s): N94.9 - UNSP COND ASSOC W FEMALE GENITAL ORGANS AND MENSTRUAL CYCLE (3) Anemia Code(s): D64.9 - ANEMIA, UNSPECIFIED Qualifiers: Anemia type: unspecified type Qualified Code(s): D64.9 - Anemia, unspecified; D64.9 - Anemia, unspecified (4) Colon neoplasm Code(s): D49.0 - NEOPLASM OF UNSPECIFIED BEHAVIOR OF DIGESTIVE SYSTEM (5) Hypothyroidism Code(s): E03.9 - HYPOTHYROIDISM, UNSPECIFIED Qualifiers: Hypothyroidism type: unspecified Qualified Code(s): E03.9 - Hypothyroidism, unspecified; E03.9 - Hypothyroidism, unspecified; E03.9 - Hypothyroidism, unspecified (6) Hyponatremia Code(s): E87.1 - HYPO-OSMOLALITY AND HYPONATREMIA (7) Abdominal abscess Code(s): K65.1 - PERITONEAL ABSCESS (8) Ascites Code(s): R18.8 - OTHER ASCITES Qualifiers: Ascites type: other type Qualified Code(s): R18.8 - Other ascites; R18.8 - Other ascites Assessment/Plan 1. Hyponatremia 2. Acute on CKD 3. Pedal edema 4. Hypothyroidism 5. Post abdominal surgery with hemicolectomy, resection of adnexal mass - fluid collection suspicious for abscess s/p insertion of drain, presence of ascities with abdominal distension 6. Anemia PLAN: 1. Correct Na. 2. Diuretics as needed and monitor renal function. 3. Antibiotic coverage 4. Surgery input noted. Drain in place and monitor output and repeat imaging study to follow Further plans are to follow Tucker Marquez MD
--- NOTE | 2017-05-20 15:47 | PN ---
Progress Note (short form) - Note Progress Note: Renal follow up for SHARITA Pt seen and examined at the bedside chart reviewed s/p CT yesterday that showed abcess in Abd, s/p drain placement pt without any acute complaints leg edema is improving Vital Signs Temperature 97.3 F L 05/20/17 15:07 Pulse Rate 75 05/20/17 15:07 Respiratory Rate 20 05/20/17 15:07 Blood Pressure 121/56 05/20/17 15:07 O2 Sat by Pulse Oximetry (%) 99 05/20/17 09:00 Intake & Output 05/17/17 05/18/17 05/19/17 05/20/17 23:59 23:59 23:59 23:59 Intake Total 1150 730 790 900 Output Total 100 70 Balance 1150 730 690 830 Weight 157 lb 1.6 oz 151 lb 156 lb NAD RRR, no M/R CTA + abd distension, + tense, no tenderness, drain in place 1+ edema in LE CBC, BMP 05/20/17 06:00 05/20/17 06:00 Current Medications Acetaminophen (Tylenol -) 650 mg PO Q6H PRN PRN Reason: FEVER OR PAIN Last Admin: 05/19/17 02:24 Dose: 650 mg Ferrous Sulfate (Feosol -) 325 mg PO DAILY@0800 [facility] Last Admin: 05/20/17 08:00 Dose: 325 mg Furosemide (Lasix Injection -) 40 mg IVPUSH DAILY [facility] Last Admin: 05/20/17 09:56 Dose: 40 mg Heparin Sodium (Porcine) (Heparin -) 5,000 unit SQ BID [facility] Last Admin: 05/20/17 09:16 Dose: 5,000 unit Ceftriaxone Sodium 2 gm/ (Dextrose) 100 mls @ 200 mls/hr IVPB DAILY [facility] Last Admin: 05/20/17 09:16 Dose: 200 mls/hr Metronidazole (Flagyl 500mg Premixed Ivpb -) 100 mls @ 100 mls/hr IVPB Q8H-IV [facility] Last Admin: 05/20/17 09:56 Dose: 100 mls/hr Levothyroxine Sodium (Synthroid -) 50 mcg PO DAILY@0700 [facility] Last Admin: 05/20/17 06:43 Dose: 50 mcg Multivitamins/Minerals/Vitamin C (Tab-A-Vit -) 1 tab PO DAILY [facility] Last Admin: 05/20/17 09:16 Dose: 1 tab Pantoprazole Sodium (Protonix -) 40 mg PO DAILY [facility] Last Admin: 05/20/17 09:16 Dose: 40 mg Polyethylene Glycol (Miralax (For Daily Use) -) 17 gm PO DAILY PRN PRN Reason: CONSTIPATION Potassium Chloride (K-Dur -) 40 meq PO DAILY [facility] Last Admin: 05/20/17 09:16 Dose: 40 meq A/P 77 year old woman with PMhx of Colon Ca (recently diagnosed) s/p right hemicolectomy, hypothyrodisim, CKD (Cr ~1.3 last admission) who presented with complaints of leg swelling found to have BUN/Cr of 24/1.8. #Acute Renal Failure with Edema Renal Us showed no obstruction urine studies are bland w/o significant proteinuria or blood Renal function improving slowly continue IV lasix daily trend BUN/Cr pt is currently NPO #Colon Ca with Abd distension s/p recent hemicolectomy s/p drain placement NPO surgical follow up continue Abx as per primary/ID #Hyponatremia from fluid overload/CKD, mild improvement thus far trend with IV diuresis Raul Fuentes DO Problem List - Problems (1) SHARITA (acute kidney injury) Code(s): N17.9 - ACUTE KIDNEY FAILURE, UNSPECIFIED (2) Anasarca Code(s): R60.1 - GENERALIZED EDEMA (3) Hypoalbuminemia Code(s): E88.09 - OTH DISORDERS OF PLASMA-PROTEIN METABOLISM, NEC (4) Colon neoplasm Code(s): D49.0 - NEOPLASM OF UNSPECIFIED BEHAVIOR OF DIGESTIVE SYSTEM
--- NOTE | 2017-05-20 16:21 | PN ---
Progress Note (short form) - Note Progress Note: Patient seen and examined. She feels a bit weak. She did get blood transfusion yesterday. Chart reviewed. Events noted. All consults input noted. O/E: Cor: RSR, No murmurs, No gallops Lungs: Clear to P&A Abd: distended, catheter present, Ext:edema, LLE cellulitis Temp Pulse Resp BP Pulse Ox 97.3 F L 75 20 121/56 99 05/20/17 15:07 05/20/17 15:07 05/20/17 15:07 05/20/17 15:07 05/20/17 09:00 CBC, BMP 05/20/17 06:00 05/20/17 06:00 Current Medications Generic Name Dose Route Start Last Admin Trade Name Freq PRN Reason Stop Dose Admin Acetaminophen 650 mg 05/16/17 20:03 05/19/17 02:24 Tylenol - PO 650 mg Q6H PRN Administration FEVER OR PAIN Ferrous Sulfate 325 mg 05/17/17 08:00 05/20/17 08:00 Feosol - PO 325 mg DAILY@0800 [facility] Administration Furosemide 40 mg 05/19/17 11:45 05/20/17 09:56 Lasix Injection - IVPUSH 40 mg DAILY [facility] Administration Heparin Sodium (Porcine) 5,000 unit 05/16/17 22:00 05/20/17 09:16 Heparin - SQ 5,000 unit BID [facility] Administration Ceftriaxone Sodium 2 gm/ 100 mls @ 200 mls/hr 05/19/17 15:30 05/20/17 09:16 Dextrose IVPB 200 mls/hr DAILY [facility] Administration Metronidazole 100 mls @ 100 mls/hr 05/19/17 14:45 05/20/17 09:56 Flagyl 500mg Premixed Ivpb - IVPB 100 mls/hr Q8H-IV [facility] Administration Levothyroxine Sodium 50 mcg 05/17/17 07:00 05/20/17 06:43 Synthroid - PO 50 mcg DAILY@0700 [facility] Administration Multivitamins/Minerals/Vitamin C 1 tab 05/17/17 10:00 05/20/17 09:16 Tab-A-Vit - PO 1 tab DAILY [facility] Administration Pantoprazole Sodium 40 mg 05/19/17 10:00 05/20/17 09:16 Protonix - PO 40 mg DAILY [facility] Administration Polyethylene Glycol 17 gm 05/18/17 09:52 Miralax (For Daily Use) - PO DAILY PRN CONST[facility] Potassium Chloride 40 meq 05/19/17 11:45 05/20/17 09:16 K-Dur - PO 40 meq DAILY [facility] Administration The patient is a 77 year old female, with a significant past medical history of colon cancer and tumor(s/p right hemicolectomy) , atelectasis both lungs, SHARITA, and hypothyroidism, who presents to the ED with LLE cellulitis, also both legs edema and anasarca, ascites; ARF/CRF; low Na, low albumin, high creat and high WBC CT shows large abdominal wall collection--air /fluid level --concerning for abscess-- at site of recent resection started antibiotics IR drainage transfusion for Hgb <7 will follow
--- NOTE | 2017-05-20 16:38 | PN ---
Progress Note (short form) - Note Progress Note: surgery pt seen and examined. hungry. feels well. over 100 drainage from marcia abd- soft, nt Plan- cont marcia drain. cont iv abx. start diet. Pt clinically well. may repeat ct on Friday.
[2017-05-21] MEDS: METRONIDAZOLE 500 MG PREMIXED 100 ML IVPB SCH ×3 (01:01→17:27)
[2017-05-21] MEDS: LEVOTHYROXINE NA 50 MCG TABLET (FP) PO SCH (06:15)
[2017-05-21 07:40] LABS: BASOPHIL 0.6 % (0-2.0); EOSINOPHIL 0.6 % (0-4.5); MCH 26.7 pg (25.7-33.7); MCHC 33.4 g/dl (32.0-36.0); MEAN CELL VOLUME 79.8 fl (80-96); MEAN PLT VOLUME 7.4 fl (7.5-11.1); NEUTROPHILS 85.6 % (42.8-82.8); PLATELET COUNT 296 K/MM3 (134-434); RDW 18.4 % (11.6-15.6); WHITE BLOOD COUNT 12.4 K/mm3 (4.0-10.0)
[2017-05-21] MEDS: FERROUS SO4 325 MG TABLET (FP) PO SCH (07:46)
[2017-05-21 07:59] LABS: ANION GAP 12 (8-16); CALCIUM 7.6 mg/dL (8.5-10.1); CO2 24 mmol/L (21-32); GLUCOSE,RANDOM 82 mg/dL (74-106); MAGNESIUM 1.7 mg/dL (1.8-2.4)
[2017-05-21 08:00] LABS: CREATININE 1.7 mg/dL (0.55-1.02); PHOSPHOROUS 5.2 mg/dL (2.5-4.9)
[2017-05-21] MEDS ORDERED: PT OWN MED DRAWER 7, Y5N ONE (09:07)
[2017-05-21] MEDS: MULTIVITAMINS (DAILY MVI) TABLET (FP) PO SCH (09:10)
[2017-05-21] MEDS: PANTOPRAZOLE 40 MG TABLET (FP) PO SCH (09:10)
[2017-05-21] MEDS: POTASSIUM CHLORIDE TABS 20 MEQ TABLET.ER (FP) PO SCH (09:10)
[2017-05-21] MEDS: FUROSEMIDE 40 MG/4 ML INJECTABLE VIAL IVPUSH SCH (09:11)
[2017-05-21] MEDS: HEPARIN NA (PORCINE) 5,000 UNITS/ML 1ML VIAL SQ SCH ×2 (09:11→21:49)
[2017-05-21] MEDS: CEFTRIAXONE 2 GM in DEXTROSE 5%-WATER - 100 ML IVPB SCH (09:11)
--- NOTE | 2017-05-21 09:55 | PN ---
Progress Note (short form) - Note Progress Note: surgery pt seen and examined. feels great. walking. ate 1/2 pound of roast beef last night. best appetite in weeks. afebrile abd- soft, mild distension, nt drain with pus, anaerobic smell, kraus, 70 ml in last 24 hours. no obvious fecal matter Plan- post colectomy abscess, doubt leak. cont iv abx. cont drain. would repeat ct Friday with fistulagram by IR
[2017-05-21] MEDS ORDERED: MAGNESIUM SULF 50% (8.12 MEQ/2 ML-1 GM VIAL) IVPB ONE (12:00)
--- NOTE | 2017-05-21 12:17 | PN ---
Progress Note, Physician Chief Complaint: OOB to chair ate OK, daughter at bedside - Current Medication List Current Medications: Active Medications Acetaminophen (Tylenol -) 650 mg PO Q6H PRN PRN Reason: FEVER OR PAIN Last Admin: 05/19/17 02:24 Dose: 650 mg Ferrous Sulfate (Feosol -) 325 mg PO DAILY@0800 [facility] Last Admin: 05/21/17 07:46 Dose: 325 mg Furosemide (Lasix Injection -) 40 mg IVPUSH DAILY [facility] Last Admin: 05/21/17 09:11 Dose: 40 mg Heparin Sodium (Porcine) (Heparin -) 5,000 unit SQ BID [facility] Last Admin: 05/21/17 09:11 Dose: 5,000 unit Ceftriaxone Sodium 2 gm/ (Dextrose) 100 mls @ 200 mls/hr IVPB DAILY [facility] Last Admin: 05/21/17 09:11 Dose: 200 mls/hr Metronidazole (Flagyl 500mg Premixed Ivpb -) 100 mls @ 100 mls/hr IVPB Q8H-IV [facility] Last Admin: 05/21/17 09:11 Dose: 100 mls/hr Levothyroxine Sodium (Synthroid -) 50 mcg PO DAILY@0700 [facility] Last Admin: 05/21/17 06:15 Dose: 50 mcg Multivitamins/Minerals/Vitamin C (Tab-A-Vit -) 1 tab PO DAILY [facility] Last Admin: 05/21/17 09:10 Dose: 1 tab Pantoprazole Sodium (Protonix -) 40 mg PO DAILY [facility] Last Admin: 05/21/17 09:10 Dose: 40 mg Polyethylene Glycol (Miralax (For Daily Use) -) 17 gm PO DAILY PRN PRN Reason: CONSTIPATION Potassium Chloride (K-Dur -) 40 meq PO DAILY [facility] Last Admin: 05/21/17 09:10 Dose: 40 meq - Objective Vital Signs: Vital Signs Temperature 97.7 F 05/21/17 06:00 Pulse Rate 79 05/21/17 06:00 Respiratory Rate 20 05/21/17 06:00 Blood Pressure 110/56 05/21/17 06:00 O2 Sat by Pulse Oximetry (%) 96 05/20/17 21:00 Constitutional: Yes: No Distress Eyes: Yes: Conjunctiva Clear HENT: Yes: Atraumatic Neck: Yes: Supple Cardiovascular: Yes: Regular Rate and Rhythm Respiratory: Yes: CTA Bilaterally Gastrointestinal: Yes: Soft. No: Distention, Tenderness Musculoskeletal: No: Joint Swelling Extremities: No: Cold, Cool Edema: Yes Integumentary: Yes: Rash Neurological: Yes: WNL, Alert, Oriented ...Motor Strength: WNL Psychiatric: Yes: WNL, Alert, Oriented. No: Agitated Labs: CBC, BMP 05/21/17 06:00 05/21/17 06:00 INR, PTT INR 1.22 (0.82-1.09) H 05/16/17 10:54 - ....Imaging Other: Report Reviewed Assessment/Plan The patient is a 77 year old female, with a significant past medical history of colon cancer and tumor(s/p right hemicolectomy) , atelectasis both lungs, HSARITA, and hypothyroidism, who presents to the ED with LLE cellulitis, also both legs edema and anasarca, ascites; ARF/CRF; low Na, low albumine, high creat and high WBC R abdomen collection r/o abscess/ collection; drained in IR, drain in IV ATB per ID Renal, cardio, ID and surgery consults appreciated lasix iv close f/u labs f/u cultures falls DVT pfx d/w pt and staff d/w daughter
--- NOTE | 2017-05-21 14:27 | PN ---
Progress Note, Physician History of Present Illness: Afebrile, abd pain and distension improving with drainage. - Current Medication List Current Medications: Active Medications Acetaminophen (Tylenol -) 650 mg PO Q6H PRN PRN Reason: FEVER OR PAIN Last Admin: 05/19/17 02:24 Dose: 650 mg Ferrous Sulfate (Feosol -) 325 mg PO DAILY@0800 [facility] Last Admin: 05/21/17 07:46 Dose: 325 mg Furosemide (Lasix Injection -) 40 mg IVPUSH DAILY [facility] Last Admin: 05/21/17 09:11 Dose: 40 mg Heparin Sodium (Porcine) (Heparin -) 5,000 unit SQ BID [facility] Last Admin: 05/21/17 09:11 Dose: 5,000 unit Ceftriaxone Sodium 2 gm/ (Dextrose) 100 mls @ 200 mls/hr IVPB DAILY [facility] Last Admin: 05/21/17 09:11 Dose: 200 mls/hr Metronidazole (Flagyl 500mg Premixed Ivpb -) 100 mls @ 100 mls/hr IVPB Q8H-IV [facility] Last Admin: 05/21/17 09:11 Dose: 100 mls/hr Levothyroxine Sodium (Synthroid -) 50 mcg PO DAILY@0700 [facility] Last Admin: 05/21/17 06:15 Dose: 50 mcg Multivitamins/Minerals/Vitamin C (Tab-A-Vit -) 1 tab PO DAILY [facility] Last Admin: 05/21/17 09:10 Dose: 1 tab Pantoprazole Sodium (Protonix -) 40 mg PO DAILY [facility] Last Admin: 05/21/17 09:10 Dose: 40 mg Polyethylene Glycol (Miralax (For Daily Use) -) 17 gm PO DAILY PRN PRN Reason: CONSTIPATION Potassium Chloride (K-Dur -) 40 meq PO DAILY [facility] Last Admin: 05/21/17 09:10 Dose: 40 meq - Objective Vital Signs: Vital Signs Temperature 97.4 F L 05/21/17 09:00 Pulse Rate 80 05/21/17 09:00 Respiratory Rate 20 05/21/17 09:00 Blood Pressure 118/54 05/21/17 09:00 O2 Sat by Pulse Oximetry (%) 98 05/21/17 09:00 Constitutional: Yes: No Distress, Calm, Thin Neck: Yes: Supple Cardiovascular: Yes: Regular Rate and Rhythm Respiratory: Yes: Regular, Diminished Gastrointestinal: Yes: Soft, Hypoactive Bowel Sounds, Other (Abd drain in place) Edema: Yes Labs: CBC, BMP 05/21/17 06:00 05/21/17 06:00 INR, PTT INR 1.22 (0.82-1.09) H 05/16/17 10:54 Problem List - Problems (1) SHARITA (acute kidney injury) Code(s): N17.9 - ACUTE KIDNEY FAILURE, UNSPECIFIED (2) Abdominal abscess Code(s): K65.1 - PERITONEAL ABSCESS (3) Ascites Code(s): R18.8 - OTHER ASCITES Qualifiers: Ascites type: other type Qualified Code(s): R18.8 - Other ascites; R18.8 - Other ascites (4) Hyponatremia Code(s): E87.1 - HYPO-OSMOLALITY AND HYPONATREMIA (5) Chronic kidney disease Code(s): N18.9 - CHRONIC KIDNEY DISEASE, UNSPECIFIED Qualifiers: Chronic kidney disease stage: stage 2 (mild) Qualified Code(s): N18.2 - Chronic kidney disease, stage 2 (mild); N18.2 - Chronic kidney disease, stage 2 (mild) (6) Hypothyroidism Code(s): E03.9 - HYPOTHYROIDISM, UNSPECIFIED Qualifiers: Hypothyroidism type: unspecified Qualified Code(s): E03.9 - Hypothyroidism, unspecified; E03.9 - Hypothyroidism, unspecified; E03.9 - Hypothyroidism, unspecified Assessment/Plan 05/19/2017 Echo: Normal LV size and fxn, no sig valve abnl 1. Hyponatremia 2. Acute on CKD 3. Pedal edema 4. Hypothyroidism 5. Post abdominal surgery with hemicolectomy, resection of adnexal mass - with abscess formation s/p insertion of drain, presence of ascities with abdominal distension 6. Anemia PLAN: 1. Correct Na. 2. Change to Lasix 40 po qd with monitor diuretic response, renal function and electrolytes, wrap legs. 3. Complete antibiotic coverage 4. Surgery input noted. Drain in place and monitor output and plan for repeat ct Friday with fistulagram by IR 5. DVT and GI prophylaxis
--- NOTE | 2017-05-21 18:36 | PN ---
Progress Note (short form) - Note Progress Note: Renal follow up for SHARITA Pt seen and examined at the bedside sitting in the chair no sob, chest pain abd feels ok tolerated diet last night Vital Signs Temperature 97.8 F 05/21/17 14:27 Pulse Rate 79 05/21/17 14:27 Respiratory Rate 20 05/21/17 14:27 Blood Pressure 116/87 05/21/17 14:27 O2 Sat by Pulse Oximetry (%) 98 05/21/17 09:00 Intake & Output 05/18/17 05/19/17 05/20/17 05/21/17 23:59 23:59 23:59 23:59 Intake Total 730 856 878 5284 Output Total 100 140 20 Balance 730 734 658 1678 Weight 151 lb 156 lb 155 lb 8 oz NAD RRR, no M/R CTA + abd distension, + tense, no tenderness, drain in place 1+ edema in LE CBC, BMP 05/21/17 06:00 05/21/17 06:00 Current Medications Acetaminophen (Tylenol -) 650 mg PO Q6H PRN PRN Reason: FEVER OR PAIN Last Admin: 05/19/17 02:24 Dose: 650 mg Ferrous Sulfate (Feosol -) 325 mg PO DAILY@0800 [facility] Last Admin: 05/21/17 07:46 Dose: 325 mg Furosemide (Lasix -) 40 mg PO DAILY [facility] Heparin Sodium (Porcine) (Heparin -) 5,000 unit SQ BID [facility] Last Admin: 05/21/17 09:11 Dose: 5,000 unit Ceftriaxone Sodium 2 gm/ (Dextrose) 100 mls @ 200 mls/hr IVPB DAILY [facility] Last Admin: 05/21/17 09:11 Dose: 200 mls/hr Metronidazole (Flagyl 500mg Premixed Ivpb -) 100 mls @ 100 mls/hr IVPB Q8H-IV [facility] Last Admin: 05/21/17 17:27 Dose: 100 mls/hr Levothyroxine Sodium (Synthroid -) 50 mcg PO DAILY@0700 [facility] Last Admin: 05/21/17 06:15 Dose: 50 mcg Multivitamins/Minerals/Vitamin C (Tab-A-Vit -) 1 tab PO DAILY [facility] Last Admin: 05/21/17 09:10 Dose: 1 tab Pantoprazole Sodium (Protonix -) 40 mg PO DAILY [facility] Last Admin: 05/21/17 09:10 Dose: 40 mg Polyethylene Glycol (Miralax (For Daily Use) -) 17 gm PO DAILY PRN PRN Reason: CONSTIPATION Potassium Chloride (K-Dur -) 40 meq PO DAILY [facility] Last Admin: 05/21/17 09:10 Dose: 40 meq A/P 77 year old woman with PMhx of Colon Ca (recently diagnosed) s/p right hemicolectomy, hypothyrodisim, CKD (Cr ~1.3 last admission) who presented with complaints of leg swelling found to have BUN/Cr of 24/1.8. #Acute Renal Failure with Edema Cr up trended to 1.7 today from 1.5 on IV lasix (got dose today), to get oral lasix tomorrow trend BUN/Cr #Colon Ca with Abd distension s/p recent hemicolectomy s/p drain placement surgical follow up continue Abx as per primary/ID #Hyponatremia from fluid overload/CKD, mild improvement thus far trend with diuresis Raul Fuentes DO Problem List - Problems (1) SHARITA (acute kidney injury) Code(s): N17.9 - ACUTE KIDNEY FAILURE, UNSPECIFIED (2) Anasarca Code(s): R60.1 - GENERALIZED EDEMA (3) Hypoalbuminemia Code(s): E88.09 - OTH DISORDERS OF PLASMA-PROTEIN METABOLISM, NEC (4) Colon neoplasm Code(s): D49.0 - NEOPLASM OF UNSPECIFIED BEHAVIOR OF DIGESTIVE SYSTEM
[2017-05-22] MEDS: METRONIDAZOLE 500 MG PREMIXED 100 ML IVPB SCH ×3 (01:06→18:08)
[2017-05-22] MEDS: LEVOTHYROXINE NA 50 MCG TABLET (FP) PO SCH (06:11)
--- NOTE | 2017-05-22 07:29 | PN ---
Progress Note, Physician Chief Complaint: drain in still draining no abdominal pain; afebrile - Current Medication List Current Medications: Active Medications Acetaminophen (Tylenol -) 650 mg PO Q6H PRN PRN Reason: FEVER OR PAIN Last Admin: 05/19/17 02:24 Dose: 650 mg Ferrous Sulfate (Feosol -) 325 mg PO DAILY@0800 [facility] Last Admin: 05/21/17 07:46 Dose: 325 mg Furosemide (Lasix -) 40 mg PO DAILY [facility] Heparin Sodium (Porcine) (Heparin -) 5,000 unit SQ BID [facility] Last Admin: 05/21/17 21:49 Dose: 5,000 unit Ceftriaxone Sodium 2 gm/ (Dextrose) 100 mls @ 200 mls/hr IVPB DAILY [facility] Last Admin: 05/21/17 09:11 Dose: 200 mls/hr Metronidazole (Flagyl 500mg Premixed Ivpb -) 100 mls @ 100 mls/hr IVPB Q8H-IV [facility] Last Admin: 05/22/17 01:06 Dose: 100 mls/hr Levothyroxine Sodium (Synthroid -) 50 mcg PO DAILY@0700 [facility] Last Admin: 05/22/17 06:11 Dose: 50 mcg Multivitamins/Minerals/Vitamin C (Tab-A-Vit -) 1 tab PO DAILY [facility] Last Admin: 05/21/17 09:10 Dose: 1 tab Pantoprazole Sodium (Protonix -) 40 mg PO DAILY [facility] Last Admin: 05/21/17 09:10 Dose: 40 mg Polyethylene Glycol (Miralax (For Daily Use) -) 17 gm PO DAILY PRN PRN Reason: CONSTIPATION Potassium Chloride (K-Dur -) 40 meq PO DAILY [facility] Last Admin: 05/21/17 09:10 Dose: 40 meq - Objective Vital Signs: Vital Signs Temperature 97.6 F 05/22/17 06:00 Pulse Rate 75 05/22/17 06:00 Respiratory Rate 20 05/22/17 06:00 Blood Pressure 112/53 05/22/17 06:00 O2 Sat by Pulse Oximetry (%) 98 05/21/17 21:00 Constitutional: Yes: No Distress, Calm Eyes: Yes: Conjunctiva Clear HENT: Yes: Atraumatic Neck: Yes: Supple Cardiovascular: Yes: Regular Rate and Rhythm Respiratory: Yes: CTA Bilaterally Gastrointestinal: Yes: Soft. No: Distention, Tenderness Genitourinary: No: CVA Tenderness - Left, CVA Tenderness - Right Musculoskeletal: No: Joint Stiffness, Joint Swelling Extremities: No: Cold, Cool, Cyanosis Edema: Yes Integumentary: Yes: Rash (much improved). No: Venous Stasis Changes Neurological: Yes: WNL, Alert, Oriented ...Motor Strength: WNL Psychiatric: Yes: WNL, Alert, Oriented. No: Agitated, Suicidal Ideation Labs: CBC, BMP 05/21/17 06:00 05/21/17 06:00 INR, PTT INR 1.22 (0.82-1.09) H 05/16/17 10:54 - ....Imaging Other: Report Reviewed Assessment/Plan The patient is a 77 year old female, with a significant past medical history of colon cancer and tumor(s/p right hemicolectomy) , atelectasis both lungs, SHARITA, and hypothyroidism, who presents to the ED with LLE cellulitis, also both legs edema and anasarca, ascites; ARF/CRF; low Na, low albumine, high creat and high WBC R abdomen collection r/o abscess/ collection; drained in IR, drain in IV ATB per ID Renal, cardio, ID and surgery consults appreciated lasix po close f/u labs and weight f/u cultures falls DVT pfx d/w pt and staff d/w daughter
[2017-05-22 07:47] LABS: BASOPHIL 0.3 % (0-2.0); EOSINOPHIL 0.7 % (0-4.5); MCH 26.5 pg (25.7-33.7); MCHC 33.4 g/dl (32.0-36.0); MEAN CELL VOLUME 79.5 fl (80-96); MEAN PLT VOLUME 6.8 fl (7.5-11.1); NEUTROPHILS 83.9 % (42.8-82.8); PLATELET COUNT 349 K/MM3 (134-434); RDW 19.2 % (11.6-15.6); WHITE BLOOD COUNT 11.6 K/mm3 (4.0-10.0)
[2017-05-22 08:16] LABS: ALBUMIN 1.4 g/dl (3.4-5.0); ANION GAP 14 (8-16); CALCIUM 7.3 mg/dL (8.5-10.1); CO2 23 mmol/L (21-32); MAGNESIUM 2.3 mg/dL (1.8-2.4); SGOT/AST 17 U/L (15-37)
[2017-05-22 08:18] LABS: ALK PHOS 297 U/L (45-117); BILIRUBIN,TOTAL 0.3 mg/dL (0.2-1.0); CREATININE 1.4 mg/dL (0.55-1.02); PHOSPHOROUS 3.5 mg/dL (2.5-4.9); SGPT/ALT 6 U/L (12-78); TOT PROT 5.4 g/dl (6.4-8.2)
[2017-05-22 08:19] LABS: GLUCOSE,RANDOM 117 mg/dL (74-106)
[2017-05-22] MEDS ORDERED: PT OWN MED DRAWER 7, Y5N ONE (08:44)
[2017-05-22] MEDS: CEFTRIAXONE 2 GM in DEXTROSE 5%-WATER - 100 ML IVPB SCH (09:01)
[2017-05-22] MEDS: PANTOPRAZOLE 40 MG TABLET (FP) PO SCH (09:03)
[2017-05-22] MEDS: MULTIVITAMINS (DAILY MVI) TABLET (FP) PO SCH (09:03)
[2017-05-22] MEDS: FERROUS SO4 325 MG TABLET (FP) PO SCH (09:03)
[2017-05-22] MEDS: FUROSEMIDE 40 MG TABLET (FP) PO SCH (09:03)
[2017-05-22] MEDS: HEPARIN NA (PORCINE) 5,000 UNITS/ML 1ML VIAL SQ SCH ×2 (09:03→22:11)
[2017-05-22] MEDS: POTASSIUM CHLORIDE TABS 20 MEQ TABLET.ER (FP) PO SCH (09:03)
--- NOTE | 2017-05-22 10:10 | PN ---
Progress Note, Physician History of Present Illness: Afebrile, abd pain and distension improving with drainage. LE wrapped. - Current Medication List Current Medications: Active Medications Acetaminophen (Tylenol -) 650 mg PO Q6H PRN PRN Reason: FEVER OR PAIN Last Admin: 05/19/17 02:24 Dose: 650 mg Ferrous Sulfate (Feosol -) 325 mg PO DAILY@0800 [facility] Last Admin: 05/22/17 09:03 Dose: 325 mg Furosemide (Lasix -) 40 mg PO DAILY [facility] [place] Last Admin: 05/22/17 09:03 Dose: 40 mg Heparin Sodium (Porcine) (Heparin -) 5,000 unit SQ BID [facility] [place] Last Admin: 05/22/17 09:03 Dose: 5,000 unit Ceftriaxone Sodium 2 gm/ (Dextrose) 100 mls @ 200 mls/hr IVPB DAILY [facility] [place] Last Admin: 05/22/17 09:01 Dose: 200 mls/hr Metronidazole (Flagyl 500mg Premixed Ivpb -) 100 mls @ 100 mls/hr IVPB Q8H-IV [facility] [place] Last Admin: 05/22/17 09:02 Dose: 100 mls/hr Levothyroxine Sodium (Synthroid -) 50 mcg PO DAILY@0700 [facility] [place] Last Admin: 05/22/17 06:11 Dose: 50 mcg Multivitamins/Minerals/Vitamin C (Tab-A-Vit -) 1 tab PO DAILY [facility] [place] Last Admin: 05/22/17 09:03 Dose: 1 tab Pantoprazole Sodium (Protonix -) 40 mg PO DAILY [facility] [place] Last Admin: 05/22/17 09:03 Dose: 40 mg Polyethylene Glycol (Miralax (For Daily Use) -) 17 gm PO DAILY PRN PRN Reason: CONSTIPATION Potassium Chloride (K-Dur -) 40 meq PO DAILY [facility] [place] Last Admin: 05/22/17 09:03 Dose: 40 meq - Objective Vital Signs: Vital Signs Temperature 97.6 F 05/22/17 06:00 Pulse Rate 83 05/22/17 09:19 Respiratory Rate 18 05/22/17 09:19 Blood Pressure 120/59 05/22/17 09:19 O2 Sat by Pulse Oximetry (%) 98 05/21/17 21:00 Constitutional: Yes: No Distress, Calm, Thin Neck: Yes: Supple Cardiovascular: Yes: Regular Rate and Rhythm Respiratory: Yes: Regular, Diminished Gastrointestinal: Yes: Soft, Distention, Hypoactive Bowel Sounds Edema: Yes Edema: LLE: 1+, RLE: 1+ Labs: CBC, BMP 05/22/17 06:00 05/22/17 06:00 INR, PTT INR 1.22 (0.82-1.09) H 05/16/17 10:54 Problem List - Problems (1) SHARITA (acute kidney injury) Code(s): N17.9 - ACUTE KIDNEY FAILURE, UNSPECIFIED (2) Abdominal abscess Code(s): K65.1 - PERITONEAL ABSCESS (3) Ascites Code(s): R18.8 - OTHER ASCITES Qualifiers: Ascites type: other type Qualified Code(s): R18.8 - Other ascites; R18.8 - Other ascites (4) Hyponatremia Code(s): E87.1 - HYPO-OSMOLALITY AND HYPONATREMIA (5) Chronic kidney disease Code(s): N18.9 - CHRONIC KIDNEY DISEASE, UNSPECIFIED Qualifiers: Chronic kidney disease stage: stage 2 (mild) Qualified Code(s): N18.2 - Chronic kidney disease, stage 2 (mild); N18.2 - Chronic kidney disease, stage 2 (mild) (6) Hypothyroidism Code(s): E03.9 - HYPOTHYROIDISM, UNSPECIFIED Qualifiers: Hypothyroidism type: unspecified Qualified Code(s): E03.9 - Hypothyroidism, unspecified; E03.9 - Hypothyroidism, unspecified; E03.9 - Hypothyroidism, unspecified Assessment/Plan 05/19/2017 Echo: Normal LV size and fxn, no sig valve abnl 1. Hyponatremia 2. Acute on CKD improving 3. Pedal edema 4. Hypothyroidism 5. Post abdominal surgery with hemicolectomy, resection of adnexal mass - with abscess formation s/p insertion of drain, presence of ascities with abdominal distension 6. Anemia PLAN: 1. Correct Na. 2. Continue Lasix 40 po qd with monitor diuretic response, renal function and electrolytes, wrap legs, replete K. 3. Complete antibiotic coverage 4. Surgery input noted. Drain in place and monitor output and plan for repeat ct Friday with fistulagram by IR 5. DVT and GI prophylaxis
--- NOTE | 2017-05-22 14:38 | PN ---
Progress Note (short form) - Note Progress Note: surgery pt well. afebrile abd- soft, nt, marcia purulent 60 ml recorded over 24 hours Plan- repeat ct tomorrow with IR fistulagram. Poss d/c on po augmentin 875 bid for 1 week pending cultures/sensitivites. will need to go home with drain.
--- NOTE | 2017-05-22 16:15 | PN ---
Progress Note (short form) - Note Progress Note: Renal follow up for SHARITA Pt seen and examined at the bedside complains of pain and pulling sensation in her left leg when trying to walk Vital Signs Temperature 97.7 F 05/22/17 14:02 Pulse Rate 79 05/22/17 14:02 Respiratory Rate 20 05/22/17 14:02 Blood Pressure 122/52 05/22/17 14:02 O2 Sat by Pulse Oximetry (%) 98 05/21/17 21:00 Intake & Output 05/19/17 05/20/17 05/21/17 05/22/17 23:59 23:59 23:59 23:59 Intake Total 389 642 4524 520 Output Total 100 140 20 115 Balance 264 991 5961 405 Weight 151 lb 156 lb 155 lb 8 oz 156 lb 8 oz NAD RRR, no M/R CTA + abd distension, + tense, no tenderness, drain in place 1+ edema in LE CBC, BMP 05/22/17 06:00 05/22/17 06:00 Current Medications Acetaminophen (Tylenol -) 650 mg PO Q6H PRN PRN Reason: FEVER OR PAIN Last Admin: 05/19/17 02:24 Dose: 650 mg Ferrous Sulfate (Feosol -) 325 mg PO DAILY@0800 [facility] Last Admin: 05/22/17 09:03 Dose: 325 mg Furosemide (Lasix -) 40 mg PO DAILY [facility] Last Admin: 05/22/17 09:03 Dose: 40 mg Heparin Sodium (Porcine) (Heparin -) 5,000 unit SQ BID [facility] Last Admin: 05/22/17 09:03 Dose: 5,000 unit Ceftriaxone Sodium 2 gm/ (Dextrose) 100 mls @ 200 mls/hr IVPB DAILY [facility] Last Admin: 05/22/17 09:01 Dose: 200 mls/hr Metronidazole (Flagyl 500mg Premixed Ivpb -) 100 mls @ 100 mls/hr IVPB Q8H-IV [facility] Last Admin: 05/22/17 09:02 Dose: 100 mls/hr Levothyroxine Sodium (Synthroid -) 50 mcg PO DAILY@0700 [facility] Last Admin: 05/22/17 06:11 Dose: 50 mcg Multivitamins/Minerals/Vitamin C (Tab-A-Vit -) 1 tab PO DAILY [facility] Last Admin: 05/22/17 09:03 Dose: 1 tab Pantoprazole Sodium (Protonix -) 40 mg PO DAILY [facility] Last Admin: 05/22/17 09:03 Dose: 40 mg Polyethylene Glycol (Miralax (For Daily Use) -) 17 gm PO DAILY PRN PRN Reason: CONSTIPATION Potassium Chloride (K-Dur -) 40 meq PO DAILY [facility] Last Admin: 05/22/17 09:03 Dose: 40 meq A/P 77 year old woman with PMhx of Colon Ca (recently diagnosed) s/p right hemicolectomy, hypothyrodisim, CKD (Cr ~1.3 last admission) who presented with complaints of leg swelling found to have BUN/Cr of 24/1.8. #Acute Renal Failure with Edema cr improved to 1.4 today continue oral lasix trend BUN/Cr #Colon Ca with Abd distension s/p recent hemicolectomy s/p drain placement surgical follow up continue Abx as per primary/ID #Hyponatremia from fluid overload/CKD, mild improvement thus far trend with diuresis #Leg pain for repeat US today US done prior to admission was negative for DVT Raul Fuentes DO Problem List - Problems (1) SHARITA (acute kidney injury) Code(s): N17.9 - ACUTE KIDNEY FAILURE, UNSPECIFIED (2) Anasarca Code(s): R60.1 - GENERALIZED EDEMA (3) Hypoalbuminemia Code(s): E88.09 - OTH DISORDERS OF PLASMA-PROTEIN METABOLISM, NEC (4) Colon neoplasm Code(s): D49.0 - NEOPLASM OF UNSPECIFIED BEHAVIOR OF DIGESTIVE SYSTEM
[2017-05-22] MEDS: ACETAMINOPHEN 325 MG TABLET (FP) PO PRN (16:27)
[2017-05-23] MEDS: METRONIDAZOLE 500 MG PREMIXED 100 ML IVPB SCH ×3 (01:08→18:34)
[2017-05-23] MEDS: LEVOTHYROXINE NA 50 MCG TABLET (FP) PO SCH ×2 (06:18→18:35)
[2017-05-23 08:43] LABS: CALCIUM 7.6 mg/dL (8.5-10.1)
[2017-05-23 08:46] LABS: ANION GAP 12 (8-16); CO2 22 mmol/L (21-32); CREATININE 1.5 mg/dL (0.55-1.02); GLUCOSE,RANDOM 94 mg/dL (74-106); MAGNESIUM 2.2 mg/dL (1.8-2.4); PHOSPHOROUS 3.7 mg/dL (2.5-4.9)
[2017-05-23] MEDS ORDERED: PT OWN MED DRAWER 7, Y5N ONE (10:22)
[2017-05-23] MEDS: HEPARIN NA (PORCINE) 5,000 UNITS/ML 1ML VIAL SQ SCH ×2 (10:33→21:56)
[2017-05-23] MEDS: CEFTRIAXONE 2 GM in DEXTROSE 5%-WATER - 100 ML IVPB SCH (10:33)
--- NOTE | 2017-05-23 10:47 | PN ---
Progress Note, Physician History of Present Illness: Afebrile, abd pain and distension improving with drainage. LE wrapped with improvement in edema. - Current Medication List Current Medications: Active Medications Acetaminophen (Tylenol -) 650 mg PO Q6H PRN PRN Reason: FEVER OR PAIN Last Admin: 05/22/17 16:27 Dose: 325 mg Ferrous Sulfate (Feosol -) 325 mg PO DAILY@0800 [facility] Last Admin: 05/22/17 09:03 Dose: 325 mg Furosemide (Lasix -) 40 mg PO DAILY [facility] Last Admin: 05/22/17 09:03 Dose: 40 mg Heparin Sodium (Porcine) (Heparin -) 5,000 unit SQ BID [facility] Last Admin: 05/22/17 22:11 Dose: 5,000 unit Ceftriaxone Sodium 2 gm/ (Dextrose) 100 mls @ 200 mls/hr IVPB DAILY [facility] Last Admin: 05/22/17 09:01 Dose: 200 mls/hr Metronidazole (Flagyl 500mg Premixed Ivpb -) 100 mls @ 100 mls/hr IVPB Q8H-IV [facility] Last Admin: 05/23/17 01:08 Dose: 100 mls/hr Levothyroxine Sodium (Synthroid -) 50 mcg PO DAILY@0700 [facility] Last Admin: 05/23/17 06:18 Dose: Not Given Multivitamins/Minerals/Vitamin C (Tab-A-Vit -) 1 tab PO DAILY [facility] Last Admin: 05/22/17 09:03 Dose: 1 tab Pantoprazole Sodium (Protonix -) 40 mg PO DAILY [facility] Last Admin: 05/22/17 09:03 Dose: 40 mg Polyethylene Glycol (Miralax (For Daily Use) -) 17 gm PO DAILY PRN PRN Reason: CONSTIPATION Potassium Chloride (K-Dur -) 40 meq PO DAILY [facility] Last Admin: 05/22/17 09:03 Dose: 40 meq - Objective Vital Signs: Vital Signs Temperature 97.4 F L 05/23/17 10:31 Pulse Rate 71 05/23/17 10:31 Respiratory Rate 18 05/23/17 10:31 Blood Pressure 125/55 05/23/17 10:31 O2 Sat by Pulse Oximetry (%) 99 05/22/17 21:00 Constitutional: Yes: No Distress, Calm Neck: Yes: Supple Cardiovascular: Yes: Regular Rate and Rhythm Respiratory: Yes: Regular, Diminished Gastrointestinal: Yes: Soft, Distention, Hypoactive Bowel Sounds Edema: Yes Edema: LLE: 1+, RLE: 1+ Labs: CBC, BMP 05/22/17 06:00 05/23/17 07:00 INR, PTT INR 1.22 (0.82-1.09) H 05/16/17 10:54 - ....Imaging Ultrasound: Report Reviewed (No DVT) Problem List - Problems (1) SHARITA (acute kidney injury) Code(s): N17.9 - ACUTE KIDNEY FAILURE, UNSPECIFIED (2) Abdominal abscess Code(s): K65.1 - PERITONEAL ABSCESS (3) Ascites Code(s): R18.8 - OTHER ASCITES Qualifiers: Ascites type: other type Qualified Code(s): R18.8 - Other ascites; R18.8 - Other ascites (4) Hyponatremia Code(s): E87.1 - HYPO-OSMOLALITY AND HYPONATREMIA (5) Chronic kidney disease Code(s): N18.9 - CHRONIC KIDNEY DISEASE, UNSPECIFIED Qualifiers: Chronic kidney disease stage: stage 2 (mild) Qualified Code(s): N18.2 - Chronic kidney disease, stage 2 (mild); N18.2 - Chronic kidney disease, stage 2 (mild) (6) Hypothyroidism Code(s): E03.9 - HYPOTHYROIDISM, UNSPECIFIED Qualifiers: Hypothyroidism type: unspecified Qualified Code(s): E03.9 - Hypothyroidism, unspecified; E03.9 - Hypothyroidism, unspecified; E03.9 - Hypothyroidism, unspecified Assessment/Plan 05/19/2017 Echo: Normal LV size and fxn, no sig valve abnl 1. Hyponatremia 2. Acute on CKD improving 3. Pedal edema 4. Hypothyroidism 5. Post abdominal surgery with hemicolectomy, resection of adnexal mass - with abscess formation s/p insertion of drain, presence of ascities with abdominal distension 6. Anemia PLAN: 1. Correct Na. 2. Continue Lasix 40 po qd with monitor diuretic response, renal function and electrolytes, wrap legs, replete K. 3. Complete antibiotic coverage 4. Surgery input noted. Drain in place and monitor output and f/u CT fistulogram results 5. DVT and GI prophylaxis
--- NOTE | 2017-05-23 11:52 | PN ---
Progress Note, Physician Chief Complaint: feels well afebrile no abdominal pain; no leg pain - Current Medication List Current Medications: Active Medications Acetaminophen (Tylenol -) 650 mg PO Q6H PRN PRN Reason: FEVER OR PAIN Last Admin: 05/22/17 16:27 Dose: 325 mg Ferrous Sulfate (Feosol -) 325 mg PO DAILY@0800 [facility] Last Admin: 05/22/17 09:03 Dose: 325 mg Furosemide (Lasix -) 40 mg PO DAILY [facility] Last Admin: 05/22/17 09:03 Dose: 40 mg Heparin Sodium (Porcine) (Heparin -) 5,000 unit SQ BID [facility] Last Admin: 05/23/17 10:33 Dose: 5,000 unit Ceftriaxone Sodium 2 gm/ (Dextrose) 100 mls @ 200 mls/hr IVPB DAILY [facility] Last Admin: 05/23/17 10:33 Dose: 200 mls/hr Metronidazole (Flagyl 500mg Premixed Ivpb -) 100 mls @ 100 mls/hr IVPB Q8H-IV [facility] Last Admin: 05/23/17 10:33 Dose: 100 mls/hr Levothyroxine Sodium (Synthroid -) 50 mcg PO DAILY@0700 [facility] Last Admin: 05/23/17 06:18 Dose: Not Given Multivitamins/Minerals/Vitamin C (Tab-A-Vit -) 1 tab PO DAILY [facility] Last Admin: 05/22/17 09:03 Dose: 1 tab Pantoprazole Sodium (Protonix -) 40 mg PO DAILY [facility] Last Admin: 05/22/17 09:03 Dose: 40 mg Polyethylene Glycol (Miralax (For Daily Use) -) 17 gm PO DAILY PRN PRN Reason: CONSTIPATION Potassium Chloride (K-Dur -) 40 meq PO DAILY [facility] Last Admin: 05/22/17 09:03 Dose: 40 meq - Objective Vital Signs: Vital Signs Temperature 97.4 F L 05/23/17 10:31 Pulse Rate 71 05/23/17 10:31 Respiratory Rate 18 05/23/17 10:31 Blood Pressure 125/55 05/23/17 10:31 O2 Sat by Pulse Oximetry (%) 99 05/22/17 21:00 Constitutional: Yes: No Distress, Calm Eyes: Yes: Conjunctiva Clear HENT: Yes: Atraumatic Neck: Yes: Supple Cardiovascular: Yes: Regular Rate and Rhythm Respiratory: Yes: CTA Bilaterally Gastrointestinal: Yes: Soft. No: Distention, Tenderness Genitourinary: No: CVA Tenderness - Left, CVA Tenderness - Right Musculoskeletal: No: Joint Stiffness, Joint Swelling Extremities: No: Cold, Cool Edema: Yes Integumentary: Yes: Rash. No: Venous Stasis Changes Neurological: Yes: WNL, Alert, Oriented ...Motor Strength: WNL Psychiatric: Yes: WNL, Alert, Oriented. No: Agitated, Suicidal Ideation Labs: CBC, BMP 05/22/17 06:00 05/23/17 07:00 INR, PTT INR 1.22 (0.82-1.09) H 05/16/17 10:54 - ....Imaging Other: Report Reviewed Assessment/Plan The patient is a 77 year old female, with a significant past medical history of colon cancer and tumor(s/p right hemicolectomy) , atelectasis both lungs, SHARITA, and hypothyroidism, who presents to the ED with LLE cellulitis, also both legs edema and anasarca, ascites; ARF/CRF; low Na, low albumine, high creat and high WBC R abdomen collection r/o abscess/ collection; drained in IR, drain in IV ATB per ID Renal, cardio, ID and surgery consults appreciated lasix po close f/u labs and weight f/u cultures falls DVT pfx d/w pt and staff d/w daughter
--- NOTE | 2017-05-23 13:51 | PN ---
Progress Note (short form) - Note Progress Note: surgery ct shows significant improvement in collection. fistulagram being done now. pt feels well plan-surgically stable for d/c with drain. 1 week augmentin 875 bid. follow results of fistula-gram.
--- NOTE | 2017-05-23 15:47 | PN ---
Progress Note, Physician History of Present Illness: OOB in chair No c/o leg pain No abdominal pain No fever/ chills - Current Medication List Current Medications: Active Medications Acetaminophen (Tylenol -) 650 mg PO Q6H PRN PRN Reason: FEVER OR PAIN Last Admin: 05/22/17 16:27 Dose: 325 mg Ferrous Sulfate (Feosol -) 325 mg PO DAILY@0800 [facility] Last Admin: 05/22/17 09:03 Dose: 325 mg Furosemide (Lasix -) 40 mg PO DAILY [facility] Last Admin: 05/22/17 09:03 Dose: 40 mg Heparin Sodium (Porcine) (Heparin -) 5,000 unit SQ BID [facility] Last Admin: 05/23/17 10:33 Dose: 5,000 unit Ceftriaxone Sodium 2 gm/ (Dextrose) 100 mls @ 200 mls/hr IVPB DAILY [facility] Last Admin: 05/23/17 10:33 Dose: 200 mls/hr Metronidazole (Flagyl 500mg Premixed Ivpb -) 100 mls @ 100 mls/hr IVPB Q8H-IV [facility] Last Admin: 05/23/17 10:33 Dose: 100 mls/hr Levothyroxine Sodium (Synthroid -) 50 mcg PO DAILY@0700 [facility] Last Admin: 05/23/17 06:18 Dose: Not Given Multivitamins/Minerals/Vitamin C (Tab-A-Vit -) 1 tab PO DAILY [facility] Last Admin: 05/22/17 09:03 Dose: 1 tab Pantoprazole Sodium (Protonix -) 40 mg PO DAILY [facility] Last Admin: 05/22/17 09:03 Dose: 40 mg Polyethylene Glycol (Miralax (For Daily Use) -) 17 gm PO DAILY PRN PRN Reason: CONSTIPATION Potassium Chloride (K-Dur -) 40 meq PO DAILY [facility] Last Admin: 05/22/17 09:03 Dose: 40 meq - Objective Vital Signs: Vital Signs Temperature 97.4 F L 05/23/17 10:31 Pulse Rate 71 05/23/17 10:31 Respiratory Rate 18 05/23/17 10:31 Blood Pressure 125/55 05/23/17 10:31 O2 Sat by Pulse Oximetry (%) 99 05/22/17 21:00 Constitutional: Yes: No Distress Eyes: Yes: Conjunctiva Clear Cardiovascular: Yes: Regular Rate and Rhythm, S1, S2 Respiratory: Yes: CTA Bilaterally Gastrointestinal: Yes: Normal Bowel Sounds, Soft, Other (+ DELFIN drain with scant serous fluid). No: Tenderness Extremities: Yes: Other (resolved erythema L LE) Edema: Yes Labs: CBC, BMP 05/22/17 06:00 05/23/17 07:00 INR, PTT INR 1.22 (0.82-1.09) H 05/16/17 10:54 Assessment/Plan Cellulitis L LE resolved Asymptomatic bacteruria Leukocytosis improved Azotemia S/P laparoscopic colectomy S/P drainage intraabdominal collection may substitute po Augmentin 875mg bid x 7d
--- NOTE | 2017-05-23 15:54 | PN ---
Progress Note (short form) - Note Progress Note: Renal follow up for SHARITA Pt seen and examined at the bedside no acute complaints no sob, chest pain Vital Signs Temperature 97.4 F L 05/23/17 10:31 Pulse Rate 71 05/23/17 10:31 Respiratory Rate 18 05/23/17 10:31 Blood Pressure 125/55 05/23/17 10:31 O2 Sat by Pulse Oximetry (%) 99 05/22/17 21:00 Intake & Output 05/20/17 05/21/17 05/22/17 05/23/17 23:59 23:59 23:59 23:59 Intake Total 900 1200 620 200 Output Total 140 20 120 10 Balance 760 1180 500 190 Weight 156 lb 155 lb 8 oz 156 lb 8 oz 157 lb 1.6 oz NAD RRR, no M/R CTA + abd distension, + tense, no tenderness, drain in place 1+ edema in LE CBC, BMP 05/22/17 06:00 05/23/17 07:00 Current Medications Acetaminophen (Tylenol -) 650 mg PO Q6H PRN PRN Reason: FEVER OR PAIN Last Admin: 05/22/17 16:27 Dose: 325 mg Ferrous Sulfate (Feosol -) 325 mg PO DAILY@0800 [facility] Last Admin: 05/22/17 09:03 Dose: 325 mg Furosemide (Lasix -) 40 mg PO DAILY [facility] Last Admin: 05/22/17 09:03 Dose: 40 mg Heparin Sodium (Porcine) (Heparin -) 5,000 unit SQ BID [facility] Last Admin: 05/23/17 10:33 Dose: 5,000 unit Ceftriaxone Sodium 2 gm/ (Dextrose) 100 mls @ 200 mls/hr IVPB DAILY [facility] Last Admin: 05/23/17 10:33 Dose: 200 mls/hr Metronidazole (Flagyl 500mg Premixed Ivpb -) 100 mls @ 100 mls/hr IVPB Q8H-IV [facility] Last Admin: 05/23/17 10:33 Dose: 100 mls/hr Levothyroxine Sodium (Synthroid -) 50 mcg PO DAILY@0700 [facility] Last Admin: 05/23/17 06:18 Dose: Not Given Multivitamins/Minerals/Vitamin C (Tab-A-Vit -) 1 tab PO DAILY [facility] Last Admin: 05/22/17 09:03 Dose: 1 tab Pantoprazole Sodium (Protonix -) 40 mg PO DAILY [facility] Last Admin: 05/22/17 09:03 Dose: 40 mg Polyethylene Glycol (Miralax (For Daily Use) -) 17 gm PO DAILY PRN PRN Reason: CONSTIPATION Potassium Chloride (K-Dur -) 40 meq PO DAILY [facility] Last Admin: 05/22/17 09:03 Dose: 40 meq A/P 77 year old woman with PMhx of Colon Ca (recently diagnosed) s/p right hemicolectomy, hypothyrodisim, CKD (Cr ~1.3 last admission) who presented with complaints of leg swelling found to have BUN/Cr of 24/1.8. #Acute Renal Failure with Edema Renal function stable at the present time continue oral laix 40mg daily, can titrate further with goal of evolemia trend BUN/cr as inpatient #Colon Ca with Abd distension s/p recent hemicolectomy continue drain with abx as per sx #Hyponatremia from fluid overload/CKD, mild improvement thus far trend with diuresis salt and free water restriction #Leg pain no DVT on US Raul Alfredo FINN Problem List - Problems (1) SHARITA (acute kidney injury) Code(s): N17.9 - ACUTE KIDNEY FAILURE, UNSPECIFIED (2) Anasarca Code(s): R60.1 - GENERALIZED EDEMA (3) Hypoalbuminemia Code(s): E88.09 - OTH DISORDERS OF PLASMA-PROTEIN METABOLISM, NEC (4) Colon neoplasm Code(s): D49.0 - NEOPLASM OF UNSPECIFIED BEHAVIOR OF DIGESTIVE SYSTEM
[2017-05-23] MEDS: POTASSIUM CHLORIDE TABS 20 MEQ TABLET.ER (FP) PO SCH (17:18)
[2017-05-23] MEDS: PANTOPRAZOLE 40 MG TABLET (FP) PO SCH (17:18)
[2017-05-23] MEDS: MULTIVITAMINS (DAILY MVI) TABLET (FP) PO SCH (17:19)
[2017-05-23] MEDS: FUROSEMIDE 40 MG TABLET (FP) PO SCH (17:19)
[2017-05-23] MEDS: FERROUS SO4 325 MG TABLET (FP) PO SCH (17:19)
[2017-05-24] MEDS: METRONIDAZOLE 500 MG PREMIXED 100 ML IVPB SCH ×3 (02:32→18:21)
[2017-05-24] MEDS: LEVOTHYROXINE NA 50 MCG TABLET (FP) PO SCH (06:31)
[2017-05-24] MEDS ORDERED: PT OWN MED DRAWER 7, Y5N ONE ×2 (08:42→09:19)
[2017-05-24] MEDS: FUROSEMIDE 40 MG TABLET (FP) PO SCH (09:17)
[2017-05-24] MEDS: FERROUS SO4 325 MG TABLET (FP) PO SCH (09:17)
[2017-05-24] MEDS: MULTIVITAMINS (DAILY MVI) TABLET (FP) PO SCH (09:17)
[2017-05-24] MEDS: PANTOPRAZOLE 40 MG TABLET (FP) PO SCH (09:17)
[2017-05-24] MEDS: POTASSIUM CHLORIDE TABS 20 MEQ TABLET.ER (FP) PO SCH (09:17)
[2017-05-24] MEDS: CEFTRIAXONE 2 GM in DEXTROSE 5%-WATER - 100 ML IVPB SCH (09:20)
--- NOTE | 2017-05-24 09:48 | PN ---
Progress Note, Physician Chief Complaint: switched to po ATB per ID; repeat abdomen CT noted and d/w pt and daughter;l has a lot of leakage around the R drain tube but less fluid draining in the bag ; will check with surgery further tx gained 1 lbs on po lasix will give 1 extra dose IV - Current Medication List Current Medications: Active Medications Acetaminophen (Tylenol -) 650 mg PO Q6H PRN PRN Reason: FEVER OR PAIN Last Admin: 05/22/17 16:27 Dose: 325 mg Ferrous Sulfate (Feosol -) 325 mg PO DAILY@0800 [facility] Last Admin: 05/24/17 09:17 Dose: 325 mg Furosemide (Lasix -) 40 mg PO DAILY [facility] Last Admin: 05/24/17 09:17 Dose: 40 mg Ceftriaxone Sodium 2 gm/ (Dextrose) 100 mls @ 200 mls/hr IVPB DAILY [facility] Last Admin: 05/24/17 09:20 Dose: 200 mls/hr Metronidazole (Flagyl 500mg Premixed Ivpb -) 100 mls @ 100 mls/hr IVPB Q8H-IV [facility] Last Admin: 05/24/17 09:15 Dose: 100 mls/hr Levothyroxine Sodium (Synthroid -) 50 mcg PO DAILY@0700 [facility] Last Admin: 05/24/17 06:31 Dose: 50 mcg Multivitamins/Minerals/Vitamin C (Tab-A-Vit -) 1 tab PO DAILY [facility] Last Admin: 05/24/17 09:17 Dose: 1 tab Pantoprazole Sodium (Protonix -) 40 mg PO DAILY [facility] Last Admin: 05/24/17 09:17 Dose: 40 mg Polyethylene Glycol (Miralax (For Daily Use) -) 17 gm PO DAILY PRN PRN Reason: CONSTIPATION Potassium Chloride (K-Dur -) 40 meq PO DAILY [facility] Last Admin: 05/24/17 09:17 Dose: 40 meq - Objective Vital Signs: Vital Signs Temperature 97.7 F 05/24/17 09:00 Pulse Rate 82 05/24/17 09:00 Respiratory Rate 18 05/24/17 09:00 Blood Pressure 122/61 05/24/17 09:00 O2 Sat by Pulse Oximetry (%) 94 L 05/23/17 21:00 Constitutional: Yes: No Distress, Calm Eyes: Yes: Conjunctiva Clear HENT: Yes: Atraumatic Neck: Yes: Supple Cardiovascular: Yes: Regular Rate and Rhythm Respiratory: Yes: CTA Bilaterally Gastrointestinal: Yes: Soft. No: Distention, Tenderness Genitourinary: No: CVA Tenderness - Left, CVA Tenderness - Right Musculoskeletal: No: Joint Stiffness, Joint Swelling Extremities: No: Cold, Cool Edema: Yes Neurological: Yes: WNL, Alert, Oriented ...Motor Strength: WNL Psychiatric: Yes: WNL, Alert, Oriented. No: Agitated, Suicidal Ideation Labs: CBC, BMP 05/22/17 06:00 05/23/17 07:00 INR, PTT INR 1.22 (0.82-1.09) H 05/16/17 10:54 - ....Imaging Other: Report Reviewed Assessment/Plan The patient is a 77 year old female, with a significant past medical history of colon cancer and tumor(s/p right hemicolectomy) , atelectasis both lungs, SHARITA, and hypothyroidism, who presents to the ED with LLE cellulitis, also both legs edema and anasarca, ascites; ARF/CRF; low Na, low albumine, high creat and high WBC R abdomen collection r/o abscess/ collection; drained in IR, drain in with peritube leakage po ATB per ID Renal, cardio, ID and surgery f/u lasix po and 1 extra dose IV see above close f/u labs and weight f/u cultures falls DVT pfx d/w pt and staff d/w daughter
[2017-05-24] MEDS ORDERED: FUROSEMIDE 40 MG/4 ML INJECTABLE VIAL IVPUSH ONE (10:30)
--- NOTE | 2017-05-24 11:03 | PN ---
Progress Note (short form) - Note Progress Note: Chief Complaint: Events noted, notes reviewed, denies any chest pain or dyspnea , denies any abdominal discomfort, peripheral edema persists History of Present Illness: Seen and examined. Events noted, notes reviewed, denies any chest pain or dyspnea, denies any abdominal discomfort, peripheral edema persists Medications: Current Medications Acetaminophen (Tylenol -) 650 mg PO Q6H PRN PRN Reason: FEVER OR PAIN Last Admin: 05/22/17 16:27 Dose: 325 mg Ferrous Sulfate (Feosol -) 325 mg PO DAILY@0800 [facility] Last Admin: 05/24/17 09:17 Dose: 325 mg Furosemide (Lasix -) 40 mg PO DAILY [facility] Last Admin: 05/24/17 09:17 Dose: 40 mg Ceftriaxone Sodium 2 gm/ (Dextrose) 100 mls @ 200 mls/hr IVPB DAILY [facility] Last Admin: 05/24/17 09:20 Dose: 200 mls/hr Metronidazole (Flagyl 500mg Premixed Ivpb -) 100 mls @ 100 mls/hr IVPB Q8H-IV [facility] Last Admin: 05/24/17 09:15 Dose: 100 mls/hr Levothyroxine Sodium (Synthroid -) 50 mcg PO DAILY@0700 [facility] Last Admin: 05/24/17 06:31 Dose: 50 mcg Multivitamins/Minerals/Vitamin C (Tab-A-Vit -) 1 tab PO DAILY [facility] Last Admin: 05/24/17 09:17 Dose: 1 tab Pantoprazole Sodium (Protonix -) 40 mg PO DAILY [facility] Last Admin: 05/24/17 09:17 Dose: 40 mg Polyethylene Glycol (Miralax (For Daily Use) -) 17 gm PO DAILY PRN PRN Reason: CONSTIPATION Potassium Chloride (K-Dur -) 40 meq PO DAILY [facility] Last Admin: 05/24/17 09:17 Dose: 40 meq Vital Signs: Last Vital Signs Temp Pulse Resp BP Pulse Ox 97.7 F 82 18 122/61 94 L 05/24/17 09:00 05/24/17 09:00 05/24/17 09:00 05/24/17 09:00 05/23/17 21:00 Intake & Output 05/21/17 05/22/17 05/23/17 05/24/17 23:59 23:59 23:59 23:59 Intake Total 1200 620 550 100 Output Total 20 120 65 0 Balance 1180 500 485 100 Weight 155 lb 8 oz 156 lb 8 oz 157 lb 1.6 oz 158 lb 5 oz Constitutional: No Distress, Calm Neck: Supple Negative JVD No Bruit Respiratory: Clear to A&P Bilaterally Cardiovascular: S1 S2 Regular Rate and Rhythm Gastrointestinal: Soft Benign Normal Bowel Sounds Ext: No Edema Labs: CBC, BMP 05/22/17 06:00 05/23/17 07:00 Hepatic Panel Total Bilirubin 0.3 mg/dL (0.2-1.0) D 05/22/17 06:00 AST 17 U/L (15-37) 05/22/17 06:00 ALT 6 U/L (12-78) L D 05/22/17 06:00 Alkaline Phosphatase 297 U/L (45-117) H 05/22/17 06:00 Albumin 1.4 g/dl (3.4-5.0) L 05/22/17 06:00 INR, PTT INR 1.22 (0.82-1.09) H 05/16/17 10:54 Assessment/Plan ASSESSMENT: 1. Hyponatremia, persistent 2. Acute on CKD, resolving 3. Persistent peripheral edema 4. Hypothyroidism 5. Post abdominal surgery with hemicolectomy, resection of adnexal mass - with abscess formation post insertion of drain 6. Anemia PLAN: 1. Hyponatremia correction 2. Continue PO Lasix with caution and close monitoring of renal function 3. Antibiotic as per the primary 4. Leg elevation and ANDI bandage prn for management of the above noted peripheral edema Dania Gerard M.D.
--- NOTE | 2017-05-24 11:08 | PN ---
Progress Note (short form) - Note Progress Note: surgery ct shows no fistula. abscess much improved. cont drain. will follow as outpt. needs 1 week of augmentin 875 bid at discharge
--- NOTE | 2017-05-24 14:30 | PN ---
Progress Note, Physician Chief Complaint: The patient seen in her room. Daughter with her. The patient had Hemicolectomy and has developed abdominal abscess. The DELFIN drain is draining minimal amounts of purulent drainage. This is a 77 year old woman with PMhx of Colon Ca s/p right Hemicolectomy, Hypothyrodisim, CKD (Cr ~1.3 last admission) who presented with complaints of leg swelling found to have BUN/Cr of 24/1.8. The Renal functions are improved now to Serum Cr 1.5. - Current Medication List Current Medications: Active Medications Acetaminophen (Tylenol -) 650 mg PO Q6H PRN PRN Reason: FEVER OR PAIN Last Admin: 05/22/17 16:27 Dose: 325 mg Ferrous Sulfate (Feosol -) 325 mg PO DAILY@0800 [facility] Last Admin: 05/24/17 09:17 Dose: 325 mg Furosemide (Lasix -) 40 mg PO DAILY [facility] Last Admin: 05/24/17 09:17 Dose: 40 mg Ceftriaxone Sodium 2 gm/ (Dextrose) 100 mls @ 200 mls/hr IVPB DAILY [facility] Last Admin: 05/24/17 09:20 Dose: 200 mls/hr Metronidazole (Flagyl 500mg Premixed Ivpb -) 100 mls @ 100 mls/hr IVPB Q8H-IV [facility] Last Admin: 05/24/17 09:15 Dose: 100 mls/hr Levothyroxine Sodium (Synthroid -) 50 mcg PO DAILY@0700 [facility] Last Admin: 05/24/17 06:31 Dose: 50 mcg Multivitamins/Minerals/Vitamin C (Tab-A-Vit -) 1 tab PO DAILY [facility] Last Admin: 05/24/17 09:17 Dose: 1 tab Pantoprazole Sodium (Protonix -) 40 mg PO DAILY [facility] Last Admin: 05/24/17 09:17 Dose: 40 mg Polyethylene Glycol (Miralax (For Daily Use) -) 17 gm PO DAILY PRN PRN Reason: CONSTIPATION Potassium Chloride (K-Dur -) 40 meq PO DAILY [facility] Last Admin: 05/24/17 09:17 Dose: 40 meq - Objective Vital Signs: Vital Signs Temperature 97.3 F L 05/24/17 13:44 Pulse Rate 93 H 05/24/17 13:44 Respiratory Rate 20 05/24/17 13:44 Blood Pressure 129/63 05/24/17 13:44 O2 Sat by Pulse Oximetry (%) 94 L 05/23/17 21:00 Constitutional: Yes: Well Nourished, Calm, Pallor Eyes: Yes: Conjunctiva Clear HENT: Yes: Normocephalic Neck: Yes: Supple Respiratory: Yes: Regular, Diminished Gastrointestinal: Yes: Normal Bowel Sounds, Soft Edema: Yes Edema: LLE: 3+, RLE: 3+ Neurological: Yes: Alert, Oriented Labs: CBC, BMP 05/22/17 06:00 05/23/17 07:00 INR, PTT INR 1.22 (0.82-1.09) H 05/16/17 10:54 Problem List - Problems (1) SHARITA (acute kidney injury) Code(s): N17.9 - ACUTE KIDNEY FAILURE, UNSPECIFIED (2) Abdominal abscess Code(s): K65.1 - PERITONEAL ABSCESS (3) Ascites Code(s): R18.8 - OTHER ASCITES Qualifiers: Ascites type: other type Qualified Code(s): R18.8 - Other ascites; R18.8 - Other ascites (4) Hypoalbuminemia Code(s): E88.09 - OTH DISORDERS OF PLASMA-PROTEIN METABOLISM, NEC (5) Hyponatremia Code(s): E87.1 - HYPO-OSMOLALITY AND HYPONATREMIA (6) Chronic kidney disease Code(s): N18.9 - CHRONIC KIDNEY DISEASE, UNSPECIFIED Qualifiers: Chronic kidney disease stage: stage 2 (mild) Qualified Code(s): N18.2 - Chronic kidney disease, stage 2 (mild); N18.2 - Chronic kidney disease, stage 2 (mild) (7) Colon neoplasm Code(s): D49.0 - NEOPLASM OF UNSPECIFIED BEHAVIOR OF DIGESTIVE SYSTEM Assessment/Plan 77 year old woman with PMhx of Colon Ca (recently diagnosed) s/p right hemicolectomy, hypothyrodisim, CKD (Cr ~1.3 last admission) #Acute Renal Failure with Edema Renal function stable at the present time. The last Serum Creatinine is 1.5 mg/ dL continue oral laix 40mg daily, can titrate further with goal of evolemia trend BUN/cr as inpatient #Colon Ca with Abd distension s/p recent hemicolectomy continue drain with abx as per sx #Hyponatremia From fluid overload/CKD, mild improvement thus far trend with diuresis salt and free water restriction Leg pain and edema no DVT on US Plan: Continue Lasix Sodium restriction in diet. Abx as ordered. Will monitor the renal functions periodically. Thank you. Will follow with you. Swetha Light MD
[2017-05-25] MEDS: METRONIDAZOLE 500 MG PREMIXED 100 ML IVPB SCH ×2 (01:32→10:08)
[2017-05-25] MEDS: LEVOTHYROXINE NA 50 MCG TABLET (FP) PO SCH (06:03)
[2017-05-25 07:55] LABS: ALBUMIN 1.5 g/dl (3.4-5.0); ANION GAP 12 (8-16); CALCIUM 7.5 mg/dL (8.5-10.1); CO2 23 mmol/L (21-32); CREATININE 1.3 mg/dL (0.55-1.02); SGOT/AST 20 U/L (15-37); SGPT/ALT < 6 U/L (12-78)
[2017-05-25 07:56] LABS: ALK PHOS 258 U/L (45-117); BILIRUBIN,TOTAL 0.5 mg/dL (0.2-1.0); TOT PROT 5.3 g/dl (6.4-8.2)
[2017-05-25 08:26] LABS: BASOPHIL 0.5 % (0-2.0); EOSINOPHIL 0.7 % (0-4.5); MCHC 33.8 g/dl (32.0-36.0); MEAN CELL VOLUME 79.9 fl (80-96); NEUTROPHILS 84.5 % (42.8-82.8); PLATELET COUNT 251 K/MM3 (134-434); RDW 19.4 % (11.6-15.6); WHITE BLOOD COUNT 10.6 K/mm3 (4.0-10.0)
[2017-05-25 08:29] LABS: GLUCOSE,RANDOM 98 mg/dL (74-106)
--- NOTE | 2017-05-25 09:21 | PN ---
Progress Note, Physician Chief Complaint: afebrile no pain had BM less draining in the bag and less leakage around the tube; pt feels uncomfortable to go home with the drain tube; will f/u with surgery to see if possible to DC drain tube here - Current Medication List Current Medications: Active Medications Acetaminophen (Tylenol -) 650 mg PO Q6H PRN PRN Reason: FEVER OR PAIN Last Admin: 05/22/17 16:27 Dose: 325 mg Ferrous Sulfate (Feosol -) 325 mg PO DAILY@0800 [facility] Last Admin: 05/24/17 09:17 Dose: 325 mg Furosemide (Lasix -) 40 mg PO DAILY [facility] Last Admin: 05/24/17 09:17 Dose: 40 mg Ceftriaxone Sodium 2 gm/ (Dextrose) 100 mls @ 200 mls/hr IVPB DAILY [facility] Last Admin: 05/24/17 09:20 Dose: 200 mls/hr Metronidazole (Flagyl 500mg Premixed Ivpb -) 100 mls @ 100 mls/hr IVPB Q8H-IV [facility] Last Admin: 05/25/17 01:32 Dose: 100 mls/hr Levothyroxine Sodium (Synthroid -) 50 mcg PO DAILY@0700 [facility] Last Admin: 05/25/17 06:03 Dose: 50 mcg Multivitamins/Minerals/Vitamin C (Tab-A-Vit -) 1 tab PO DAILY [facility] Last Admin: 05/24/17 09:17 Dose: 1 tab Pantoprazole Sodium (Protonix -) 40 mg PO DAILY [facility] Last Admin: 05/24/17 09:17 Dose: 40 mg Polyethylene Glycol (Miralax (For Daily Use) -) 17 gm PO DAILY PRN PRN Reason: CONSTIPATION Potassium Chloride (K-Dur -) 40 meq PO DAILY [facility] Last Admin: 05/24/17 09:17 Dose: 40 meq - Objective Vital Signs: Vital Signs Temperature 97.8 F 05/25/17 05:20 Pulse Rate 90 05/24/17 22:06 Respiratory Rate 18 05/24/17 22:06 Blood Pressure 128/55 05/24/17 22:06 O2 Sat by Pulse Oximetry (%) 94 L 05/24/17 21:00 Constitutional: Yes: No Distress, Calm Eyes: Yes: Conjunctiva Clear HENT: Yes: Atraumatic Neck: Yes: Supple Cardiovascular: Yes: Regular Rate and Rhythm Respiratory: Yes: CTA Bilaterally Gastrointestinal: Yes: Soft. No: Distention, Tenderness Genitourinary: No: CVA Tenderness - Left, CVA Tenderness - Right Musculoskeletal: No: Joint Stiffness, Joint Swelling Extremities: No: Cold, Cool, Cyanosis Edema: Yes (less, legs) Integumentary: Yes: Rash (LLE less;). No: Venous Stasis Changes Neurological: Yes: WNL, Alert, Oriented ...Motor Strength: WNL Psychiatric: Yes: WNL, Alert, Oriented. No: Agitated, Suicidal Ideation Labs: CBC, BMP 05/25/17 06:00 05/25/17 06:00 INR, PTT INR 1.22 (0.82-1.09) H 05/16/17 10:54 - ....Imaging Other: Report Reviewed Assessment/Plan The patient is a 77 year old female, with a significant past medical history of colon cancer and tumor(s/p right hemicolectomy) , atelectasis both lungs, SHARITA, and hypothyroidism, who presents to the ED with LLE cellulitis, also both legs edema and anasarca, ascites; ARF/CRF; low Na, low albumine, high creat and high WBC R abdomen collection r/o abscess/ collection; drained in IR, drain in with peritube leakage better - further tx per surgery po ATB per ID Renal, cardio, ID and surgery f/u lasix po LLE cellulitis better but pt said she has on/off LLE rash in the same spot for over 1 year, intermittently - I advised her to see yanci Bray after DC home close f/u labs and weight cultures noted falls DVT pfx d/w pt and staff
[2017-05-25] MEDS ORDERED: PT OWN MED DRAWER 7, Y5N ONE (10:05)
[2017-05-25 10:08] LABS: ANISOCYTOSIS 2+; HYPOCHROMIA 2+; MICROCYTOSIS 2+
[2017-05-25] MEDS: CEFTRIAXONE 2 GM in DEXTROSE 5%-WATER - 100 ML IVPB SCH (10:08)
[2017-05-25] MEDS: MULTIVITAMINS (DAILY MVI) TABLET (FP) PO SCH (10:08)
[2017-05-25] MEDS: POTASSIUM CHLORIDE TABS 20 MEQ TABLET.ER (FP) PO SCH (10:08)
[2017-05-25] MEDS: PANTOPRAZOLE 40 MG TABLET (FP) PO SCH (10:08)
[2017-05-25] MEDS: FUROSEMIDE 40 MG TABLET (FP) PO SCH (10:08)
[2017-05-25] MEDS: FERROUS SO4 325 MG TABLET (FP) PO SCH (10:08)
--- NOTE | 2017-05-25 10:47 | PN ---
Progress Note (short form) - Note Progress Note: Chief Complaint: Events noted, notes reviewed, denies any chest pain or dyspnea , denies any abdominal discomfort, peripheral edema persists but improved History of Present Illness: Seen and examined. Events noted, notes reviewed, denies any chest pain or dyspnea, denies any abdominal discomfort, peripheral edema persists but improved Medications: Current Medications Acetaminophen (Tylenol -) 650 mg PO Q6H PRN PRN Reason: FEVER OR PAIN Last Admin: 05/22/17 16:27 Dose: 325 mg Ferrous Sulfate (Feosol -) 325 mg PO DAILY@0800 [facility] Last Admin: 05/25/17 10:08 Dose: 325 mg Furosemide (Lasix -) 40 mg PO DAILY [facility] Last Admin: 05/25/17 10:08 Dose: 40 mg Ceftriaxone Sodium 2 gm/ (Dextrose) 100 mls @ 200 mls/hr IVPB DAILY [facility] Last Admin: 05/25/17 10:08 Dose: 200 mls/hr Metronidazole (Flagyl 500mg Premixed Ivpb -) 100 mls @ 100 mls/hr IVPB Q8H-IV [facility] Last Admin: 05/25/17 10:08 Dose: 100 mls/hr Levothyroxine Sodium (Synthroid -) 50 mcg PO DAILY@0700 [facility] Last Admin: 05/25/17 06:03 Dose: 50 mcg Multivitamins/Minerals/Vitamin C (Tab-A-Vit -) 1 tab PO DAILY [facility] Last Admin: 05/25/17 10:08 Dose: 1 tab Pantoprazole Sodium (Protonix -) 40 mg PO DAILY [facility] Last Admin: 05/25/17 10:08 Dose: 40 mg Polyethylene Glycol (Miralax (For Daily Use) -) 17 gm PO DAILY PRN PRN Reason: CONSTIPATION Potassium Chloride (K-Dur -) 40 meq PO DAILY [facility] Last Admin: 05/25/17 10:08 Dose: 40 meq Vital Signs: Last Vital Signs Temp Pulse Resp BP Pulse Ox 98.1 F 75 18 135/58 94 L 05/25/17 10:11 05/25/17 10:11 05/25/17 10:11 05/25/17 10:11 05/24/17 21:00 Intake & Output 05/22/17 05/23/17 05/24/17 05/25/17 23:59 23:59 23:59 23:59 Intake Total 620 550 987 100 Output Total 120 65 0 10 Balance 500 485 987 90 Weight 156 lb 8 oz 157 lb 1.6 oz 158 lb 5 oz Constitutional: No Distress, Calm Neck: Supple Negative JVD No Bruit Respiratory: Clear to A&P Bilaterally Cardiovascular: S1 S2 Regular Rate and Rhythm Gastrointestinal: Soft Benign Normal Bowel Sounds Ext: Edema Labs: CBC, BMP 05/25/17 06:00 05/25/17 06:00 Hepatic Panel Total Bilirubin 0.5 mg/dL (0.2-1.0) D 05/25/17 06:00 AST 20 U/L (15-37) 05/25/17 06:00 ALT < 6 U/L (12-78) L 05/25/17 06:00 Alkaline Phosphatase 258 U/L (45-117) H 05/25/17 06:00 Albumin 1.5 g/dl (3.4-5.0) L 05/25/17 06:00 Assessment/Plan ASSESSMENT: 1. Hyponatremia, persistent 2. Acute on CKD, resolving 3. Persistent peripheral edema, resolving 4. Hypothyroidism 5. Post abdominal surgery with hemicolectomy, resection of adnexal mass - with abscess formation post insertion of drain 6. Anemia PLAN: 1. Hyponatremia correction as per the primary team 2. Continue PO Lasix with caution and close monitoring of renal function 3. Antibiotic as per the primary 4. Leg elevation and ANDI bandage prn for management of the above noted persistent peripheral edema Dania Gerard M.D.
--- NOTE | 2017-05-25 12:27 | PN ---
Progress Note, Physician Chief Complaint: The patient seen in her room. Family visiting. Reports feeling much better. The patient had Hemicolectomy and has developed abdominal abscess. Has leg swelling and redness, L > R Maintains good urine output. - Current Medication List Current Medications: Active Medications Acetaminophen (Tylenol -) 650 mg PO Q6H PRN PRN Reason: FEVER OR PAIN Last Admin: 05/22/17 16:27 Dose: 325 mg Amoxicillin/Clavulanate Potassium (Augmentin - 875mg Tablet) 1 tab PO BID@0800, 1730 [facility] Ferrous Sulfate (Feosol -) 325 mg PO DAILY@0800 [facility] Last Admin: 05/25/17 10:08 Dose: 325 mg Furosemide (Lasix -) 40 mg PO DAILY [facility] Last Admin: 05/25/17 10:08 Dose: 40 mg Hydrocortisone (Hytone 1% Cream -) 1 applic TP BID [facility] Levothyroxine Sodium (Synthroid -) 50 mcg PO DAILY@0700 [facility] Last Admin: 05/25/17 06:03 Dose: 50 mcg Multivitamins/Minerals/Vitamin C (Tab-A-Vit -) 1 tab PO DAILY [facility] Last Admin: 05/25/17 10:08 Dose: 1 tab Pantoprazole Sodium (Protonix -) 40 mg PO DAILY [facility] Last Admin: 05/25/17 10:08 Dose: 40 mg Polyethylene Glycol (Miralax (For Daily Use) -) 17 gm PO DAILY PRN PRN Reason: CONSTIPATION Potassium Chloride (K-Dur -) 40 meq PO DAILY [facility] Last Admin: 05/25/17 10:08 Dose: 40 meq - Objective Vital Signs: Vital Signs Temperature 98.1 F 05/25/17 10:11 Pulse Rate 75 05/25/17 10:11 Respiratory Rate 18 05/25/17 10:11 Blood Pressure 135/58 05/25/17 10:11 O2 Sat by Pulse Oximetry (%) 94 L 05/24/17 21:00 Constitutional: Yes: No Distress, Calm Eyes: Yes: Conjunctiva Clear HENT: Yes: Normocephalic Neck: Yes: Trachea Midline Cardiovascular: Yes: S1, S2 Respiratory: Yes: Regular, Diminished Gastrointestinal: Yes: Normal Bowel Sounds Edema: LLE: 2+, RLE: 2+ Neurological: Yes: Alert, Oriented Psychiatric: Yes: Alert, Oriented Labs: CBC, BMP 05/25/17 06:00 05/25/17 06:00 INR, PTT INR 1.22 (0.82-1.09) H 05/16/17 10:54 Problem List - Problems (1) SHARITA (acute kidney injury) Code(s): N17.9 - ACUTE KIDNEY FAILURE, UNSPECIFIED (2) Abdominal abscess Code(s): K65.1 - PERITONEAL ABSCESS (3) Ascites Code(s): R18.8 - OTHER ASCITES Qualifiers: Ascites type: other type Qualified Code(s): R18.8 - Other ascites; R18.8 - Other ascites (4) Hypoalbuminemia Code(s): E88.09 - OTH DISORDERS OF PLASMA-PROTEIN METABOLISM, NEC (5) Hyponatremia Code(s): E87.1 - HYPO-OSMOLALITY AND HYPONATREMIA (6) Chronic kidney disease Code(s): N18.9 - CHRONIC KIDNEY DISEASE, UNSPECIFIED Qualifiers: Chronic kidney disease stage: stage 2 (mild) Qualified Code(s): N18.2 - Chronic kidney disease, stage 2 (mild); N18.2 - Chronic kidney disease, stage 2 (mild) (7) Colon neoplasm Code(s): D49.0 - NEOPLASM OF UNSPECIFIED BEHAVIOR OF DIGESTIVE SYSTEM Assessment/Plan The patient is a 77 year old female, with a significant past medical history of colon cancer s/p right hemicolectomy , atelectasis both lungs, SHARITA, and hypothyroidism, who presents to the ED with Left lower extremity cellulitis, also both legs edema , ascites; ARF/CRF, Hyponatremia. The patient is on Lasix 40 mg daily, and she tolerates it well. Will continue the same. LLE cellulitis better ...On abx Acute Renal failure. The azotemia is improving towards her baseline. Serum Sodium in acceptable range and stable. Will monitor. Thank you. Swetha Light MD
[2017-05-25] MEDS: HYDROCORTISONE 1% TOPICAL CREAM 30 GM TUBE TP SCH ×2 (13:29→22:04)
[2017-05-25] MEDS: ACETAMINOPHEN 325 MG TABLET (FP) PO PRN (17:22)
[2017-05-25] MEDS: AMOX TR/POT CLAV 875MG/125MG TABLETS (FP) PO SCH (17:53)
[2017-05-26] MEDS: LEVOTHYROXINE NA 50 MCG TABLET (FP) PO SCH (06:13)
[2017-05-26] MEDS: AMOX TR/POT CLAV 875MG/125MG TABLETS (FP) PO SCH ×2 (08:30→17:46)
[2017-05-26] MEDS: FERROUS SO4 325 MG TABLET (FP) PO SCH (08:30)
[2017-05-26] MEDS: HYDROCORTISONE 1% TOPICAL CREAM 30 GM TUBE TP SCH ×2 (09:26→21:54)
[2017-05-26] MEDS: FUROSEMIDE 40 MG TABLET (FP) PO SCH (09:26)
[2017-05-26] MEDS: MULTIVITAMINS (DAILY MVI) TABLET (FP) PO SCH (09:26)
[2017-05-26] MEDS: POTASSIUM CHLORIDE TABS 20 MEQ TABLET.ER (FP) PO SCH (09:26)
[2017-05-26] MEDS: PANTOPRAZOLE 40 MG TABLET (FP) PO SCH (09:26)
--- NOTE | 2017-05-26 10:30 | PN ---
Progress Note, Physician Chief Complaint: still with leakage around the drain tube R abdomen - Current Medication List Current Medications: Active Medications Acetaminophen (Tylenol -) 650 mg PO Q6H PRN PRN Reason: FEVER OR PAIN Last Admin: 05/25/17 17:22 Dose: 325 mg Amoxicillin/Clavulanate Potassium (Augmentin - 875mg Tablet) 1 tab PO BID@0800, 1730 [facility] Last Admin: 05/26/17 08:30 Dose: 1 tab Ferrous Sulfate (Feosol -) 325 mg PO DAILY@0800 [facility] Last Admin: 05/26/17 08:30 Dose: 325 mg Furosemide (Lasix -) 40 mg PO DAILY [facility] Last Admin: 05/26/17 09:26 Dose: 40 mg Hydrocortisone (Hytone 1% Cream -) 1 applic TP BID [facility] Last Admin: 05/26/17 09:26 Dose: 1 applic Levothyroxine Sodium (Synthroid -) 50 mcg PO DAILY@0700 [facility] Last Admin: 05/26/17 06:13 Dose: 50 mcg Multivitamins/Minerals/Vitamin C (Tab-A-Vit -) 1 tab PO DAILY [facility] Last Admin: 05/26/17 09:26 Dose: 1 tab Pantoprazole Sodium (Protonix -) 40 mg PO DAILY [facility] Last Admin: 05/26/17 09:26 Dose: 40 mg Polyethylene Glycol (Miralax (For Daily Use) -) 17 gm PO DAILY PRN PRN Reason: CONSTIPATION Potassium Chloride (K-Dur -) 40 meq PO DAILY [facility] Last Admin: 05/26/17 09:26 Dose: 40 meq - Objective Vital Signs: Vital Signs Temperature 98.0 F 05/26/17 09:24 Pulse Rate 82 05/26/17 09:24 Respiratory Rate 18 05/26/17 09:24 Blood Pressure 122/55 05/26/17 09:24 O2 Sat by Pulse Oximetry (%) 98 05/25/17 21:00 Constitutional: Yes: No Distress, Calm Eyes: Yes: Conjunctiva Clear HENT: Yes: Atraumatic Neck: Yes: Supple Cardiovascular: Yes: Regular Rate and Rhythm Respiratory: Yes: CTA Bilaterally Gastrointestinal: Yes: Soft. No: Tenderness Genitourinary: No: CVA Tenderness - Left, CVA Tenderness - Right Musculoskeletal: No: Joint Swelling, Muscle Pain Extremities: No: Cold, Cool, Cyanosis Edema: Yes (much less) Neurological: Yes: WNL, Alert, Oriented ...Motor Strength: WNL Psychiatric: Yes: WNL, Alert, Oriented. No: Agitated, Suicidal Ideation Labs: CBC, BMP 05/25/17 06:00 05/25/17 06:00 INR, PTT INR 1.22 (0.82-1.09) H 05/16/17 10:54 - ....Imaging Other: Report Reviewed Assessment/Plan The patient is a 77 year old female, with a significant past medical history of colon cancer and tumor(s/p right hemicolectomy) , atelectasis both lungs, SHARITA, and hypothyroidism, who presents to the ED with LLE cellulitis, also both legs edema and anasarca, ascites; ARF/CRF; low Na, low albumine, high creat and high WBC R abdomen collection r/o abscess/ collection; drained in IR, drain in with peritube leakage better - further tx per surgery po ATB per ID Renal, cardio, ID and surgery f/u lasix po LLE cellulitis better but pt said she has on/off LLE rash in the same spot for over 1 year, intermittently - I advised her to see yanci Bray after DC home close f/u labs and weight cultures noted falls DVT pfx d/w pt and staff
--- NOTE | 2017-05-26 10:54 | PN ---
Progress Note, Physician History of Present Illness: Afebrile, abd pain and distension improving with drainage. LE wrapped with improvement in edema. - Current Medication List Current Medications: Active Medications Acetaminophen (Tylenol -) 650 mg PO Q6H PRN PRN Reason: FEVER OR PAIN Last Admin: 05/25/17 17:22 Dose: 325 mg Amoxicillin/Clavulanate Potassium (Augmentin - 875mg Tablet) 1 tab PO BID@0800, 1730 [facility] Last Admin: 05/26/17 08:30 Dose: 1 tab Ferrous Sulfate (Feosol -) 325 mg PO DAILY@0800 [facility] Last Admin: 05/26/17 08:30 Dose: 325 mg Furosemide (Lasix -) 40 mg PO DAILY [facility] Last Admin: 05/26/17 09:26 Dose: 40 mg Hydrocortisone (Hytone 1% Cream -) 1 applic TP BID [facility] Last Admin: 05/26/17 09:26 Dose: 1 applic Levothyroxine Sodium (Synthroid -) 50 mcg PO DAILY@0700 [facility] Last Admin: 05/26/17 06:13 Dose: 50 mcg Multivitamins/Minerals/Vitamin C (Tab-A-Vit -) 1 tab PO DAILY [facility] Last Admin: 05/26/17 09:26 Dose: 1 tab Pantoprazole Sodium (Protonix -) 40 mg PO DAILY [facility] Last Admin: 05/26/17 09:26 Dose: 40 mg Polyethylene Glycol (Miralax (For Daily Use) -) 17 gm PO DAILY PRN PRN Reason: CONSTIPATION Potassium Chloride (K-Dur -) 40 meq PO DAILY [facility] Last Admin: 05/26/17 09:26 Dose: 40 meq - Objective Vital Signs: Vital Signs Temperature 98.0 F 05/26/17 09:24 Pulse Rate 82 05/26/17 09:24 Respiratory Rate 18 05/26/17 09:24 Blood Pressure 122/55 05/26/17 09:24 O2 Sat by Pulse Oximetry (%) 98 05/25/17 21:00 Constitutional: Yes: No Distress, Calm, Thin Neck: Yes: Supple Cardiovascular: Yes: Regular Rate and Rhythm Respiratory: Yes: Regular, Diminished Gastrointestinal: Yes: Soft, Hypoactive Bowel Sounds Edema: Yes Labs: CBC, BMP 05/25/17 06:00 05/25/17 06:00 INR, PTT INR 1.22 (0.82-1.09) H 05/16/17 10:54 Problem List - Problems (1) SHARITA (acute kidney injury) Code(s): N17.9 - ACUTE KIDNEY FAILURE, UNSPECIFIED (2) Abdominal abscess Code(s): K65.1 - PERITONEAL ABSCESS (3) Ascites Code(s): R18.8 - OTHER ASCITES Qualifiers: Ascites type: other type Qualified Code(s): R18.8 - Other ascites; R18.8 - Other ascites (4) Hyponatremia Code(s): E87.1 - HYPO-OSMOLALITY AND HYPONATREMIA (5) Chronic kidney disease Code(s): N18.9 - CHRONIC KIDNEY DISEASE, UNSPECIFIED Qualifiers: Chronic kidney disease stage: stage 2 (mild) Qualified Code(s): N18.2 - Chronic kidney disease, stage 2 (mild); N18.2 - Chronic kidney disease, stage 2 (mild) (6) Hypothyroidism Code(s): E03.9 - HYPOTHYROIDISM, UNSPECIFIED Qualifiers: Hypothyroidism type: unspecified Qualified Code(s): E03.9 - Hypothyroidism, unspecified; E03.9 - Hypothyroidism, unspecified; E03.9 - Hypothyroidism, unspecified Assessment/Plan 05/19/2017 Echo: Normal LV size and fxn, no sig valve abnl 1. Hyponatremia, persistent 2. Acute on CKD improving 3. Pedal edema improving 4. Hypothyroidism 5. Post abdominal surgery with hemicolectomy, resection of adnexal mass - with abscess formation s/p insertion of drain, presence of ascities with abdominal distension 6. Anemia PLAN: 1. Correct Na. 2. Continue Lasix 40 po qd with monitor diuretic response, renal function and electrolytes, wrap legs, replete K. 3. Complete antibiotic course 4. Leg elevation and ANDI bandage prn for management of the above noted persistent peripheral edema 5. DVT and GI prophylaxis
--- NOTE | 2017-05-26 12:41 | PN ---
Progress Note (short form) - Note Progress Note: surgery pt seen and examined last night and today. feels well. drain leaking at skin site and air entering bag. spoke with Dr. Weston who will adjust drain. no surgical contraindication to discharge.
--- NOTE | 2017-05-26 13:19 | PN ---
Progress Note, Physician Chief Complaint: The patient seen in her room. Seems upset about the leaking drain. Maintains good urine output. no chest pain. No shortness of breath. - Current Medication List Current Medications: Active Medications Acetaminophen (Tylenol -) 650 mg PO Q6H PRN PRN Reason: FEVER OR PAIN Last Admin: 05/25/17 17:22 Dose: 325 mg Amoxicillin/Clavulanate Potassium (Augmentin - 875mg Tablet) 1 tab PO BID@0800, 1730 [facility] Last Admin: 05/26/17 08:30 Dose: 1 tab Ferrous Sulfate (Feosol -) 325 mg PO DAILY@0800 [facility] Last Admin: 05/26/17 08:30 Dose: 325 mg Furosemide (Lasix -) 40 mg PO DAILY [facility] Last Admin: 05/26/17 09:26 Dose: 40 mg Hydrocortisone (Hytone 1% Cream -) 1 applic TP BID [facility] Last Admin: 05/26/17 09:26 Dose: 1 applic Levothyroxine Sodium (Synthroid -) 50 mcg PO DAILY@0700 [facility] Last Admin: 05/26/17 06:13 Dose: 50 mcg Multivitamins/Minerals/Vitamin C (Tab-A-Vit -) 1 tab PO DAILY [facility] Last Admin: 05/26/17 09:26 Dose: 1 tab Pantoprazole Sodium (Protonix -) 40 mg PO DAILY [facility] Last Admin: 05/26/17 09:26 Dose: 40 mg Polyethylene Glycol (Miralax (For Daily Use) -) 17 gm PO DAILY PRN PRN Reason: CONSTIPATION Potassium Chloride (K-Dur -) 40 meq PO DAILY [facility] Last Admin: 05/26/17 09:26 Dose: 40 meq - Objective Vital Signs: Vital Signs Temperature 98.0 F 05/26/17 09:24 Pulse Rate 82 05/26/17 09:24 Respiratory Rate 18 05/26/17 09:24 Blood Pressure 122/55 05/26/17 09:24 O2 Sat by Pulse Oximetry (%) 98 05/26/17 09:24 Constitutional: Yes: Anxious, Mild Distress Eyes: Yes: Conjunctiva Clear HENT: Yes: Atraumatic Neck: Yes: Trachea Midline Cardiovascular: Yes: Regular Rate and Rhythm, S1, S2 Respiratory: Yes: Regular, CTA Bilaterally Gastrointestinal: Yes: Normal Bowel Sounds Genitourinary: No: CVA Tenderness - Left, CVA Tenderness - Right Neurological: Yes: Alert, Oriented Labs: CBC, BMP 05/25/17 06:00 05/25/17 06:00 INR, PTT INR 1.22 (0.82-1.09) H 05/16/17 10:54 Problem List - Problems (1) SHARITA (acute kidney injury) Code(s): N17.9 - ACUTE KIDNEY FAILURE, UNSPECIFIED (2) Abdominal abscess Code(s): K65.1 - PERITONEAL ABSCESS (3) Ascites Code(s): R18.8 - OTHER ASCITES Qualifiers: Ascites type: other type Qualified Code(s): R18.8 - Other ascites; R18.8 - Other ascites (4) Hypoalbuminemia Code(s): E88.09 - OTH DISORDERS OF PLASMA-PROTEIN METABOLISM, NEC (5) Hyponatremia Code(s): E87.1 - HYPO-OSMOLALITY AND HYPONATREMIA (6) Chronic kidney disease Code(s): N18.9 - CHRONIC KIDNEY DISEASE, UNSPECIFIED Qualifiers: Chronic kidney disease stage: stage 2 (mild) Qualified Code(s): N18.2 - Chronic kidney disease, stage 2 (mild); N18.2 - Chronic kidney disease, stage 2 (mild) (7) Colon neoplasm Code(s): D49.0 - NEOPLASM OF UNSPECIFIED BEHAVIOR OF DIGESTIVE SYSTEM Assessment/Plan The patient is a 77 year old female, with a significant past medical history of colon cancer s/p right hemicolectomy , atelectasis both lungs, SHARITA, and hypothyroidism, who presents to the ED with Left lower extremity cellulitis, also both legs edema , ascites; ARF/CRF, Hyponatremia. leaking DELFIN drain. IR to evaluate. LLE cellulitis better ...On abx Acute Renal failure. The azotemia is improving towards her baseline. Serum Sodium in acceptable range and stable ( 133 mEq/L) Will monitor. Thank you. Swetha Light MD
[2017-05-26] MEDS: ACETAMINOPHEN 325 MG TABLET (FP) PO PRN (17:49)
[2017-05-27] MEDS: LEVOTHYROXINE NA 50 MCG TABLET (FP) PO SCH (06:03)
[2017-05-27] MEDS: FERROUS SO4 325 MG TABLET (FP) PO SCH (09:21)
[2017-05-27] MEDS: HYDROCORTISONE 1% TOPICAL CREAM 30 GM TUBE TP SCH ×2 (09:21→09:33)
[2017-05-27] MEDS: AMOX TR/POT CLAV 875MG/125MG TABLETS (FP) PO SCH (09:21)
[2017-05-27] MEDS: FUROSEMIDE 40 MG TABLET (FP) PO SCH (09:21)
[2017-05-27] MEDS: PANTOPRAZOLE 40 MG TABLET (FP) PO SCH (09:26)
[2017-05-27] MEDS: MULTIVITAMINS (DAILY MVI) TABLET (FP) PO SCH (09:26)
[2017-05-27] MEDS: POTASSIUM CHLORIDE TABS 20 MEQ TABLET.ER (FP) PO SCH (09:26)
[2017-05-27 09:28] VITALS: BP 129/65; PULSE 85; TEMP 98.4
--- NOTE | 2017-05-27 10:15 | PN ---
Progress Note, Physician - Current Medication List Current Medications: Active Medications Acetaminophen (Tylenol -) 650 mg PO Q6H PRN PRN Reason: FEVER OR PAIN Last Admin: 05/26/17 17:49 Dose: 325 mg Amoxicillin/Clavulanate Potassium (Augmentin - 875mg Tablet) 1 tab PO BID@0800, 1730 [facility] Last Admin: 05/27/17 09:21 Dose: 1 tab Ferrous Sulfate (Feosol -) 325 mg PO DAILY@0800 [facility] Last Admin: 05/27/17 09:21 Dose: 325 mg Furosemide (Lasix -) 40 mg PO DAILY [facility] Last Admin: 05/27/17 09:21 Dose: 40 mg Hydrocortisone (Hytone 1% Cream -) 1 applic TP BID [facility] Last Admin: 05/27/17 09:33 Dose: 1 applic Levothyroxine Sodium (Synthroid -) 50 mcg PO DAILY@0700 [facility] Last Admin: 05/27/17 06:03 Dose: 50 mcg Multivitamins/Minerals/Vitamin C (Tab-A-Vit -) 1 tab PO DAILY [facility] Last Admin: 05/27/17 09:26 Dose: 1 tab Pantoprazole Sodium (Protonix -) 40 mg PO DAILY [facility] Last Admin: 05/27/17 09:26 Dose: 40 mg Polyethylene Glycol (Miralax (For Daily Use) -) 17 gm PO DAILY PRN PRN Reason: CONSTIPATION Potassium Chloride (K-Dur -) 40 meq PO DAILY [facility] Last Admin: 05/27/17 09:26 Dose: 40 meq - Objective Vital Signs: Vital Signs Temperature 98.4 F 05/27/17 09:27 Pulse Rate 85 05/27/17 09:27 Respiratory Rate 18 05/27/17 09:27 Blood Pressure 129/65 05/27/17 09:27 O2 Sat by Pulse Oximetry (%) 98 05/26/17 20:35 Labs: CBC, BMP 05/25/17 06:00 05/25/17 06:00 INR, PTT INR 1.22 (0.82-1.09) H 05/16/17 10:54 Problem List - Problems (1) SHARITA (acute kidney injury) Code(s): N17.9 - ACUTE KIDNEY FAILURE, UNSPECIFIED (2) Adnexal mass Code(s): N94.9 - UNSP COND ASSOC W FEMALE GENITAL ORGANS AND MENSTRUAL CYCLE (3) Anemia Code(s): D64.9 - ANEMIA, UNSPECIFIED Qualifiers: Anemia type: unspecified type Qualified Code(s): D64.9 - Anemia, unspecified; D64.9 - Anemia, unspecified (4) Colon neoplasm Code(s): D49.0 - NEOPLASM OF UNSPECIFIED BEHAVIOR OF DIGESTIVE SYSTEM (5) Hypothyroidism Code(s): E03.9 - HYPOTHYROIDISM, UNSPECIFIED Qualifiers: Hypothyroidism type: unspecified Qualified Code(s): E03.9 - Hypothyroidism, unspecified; E03.9 - Hypothyroidism, unspecified; E03.9 - Hypothyroidism, unspecified (6) Hyponatremia Code(s): E87.1 - HYPO-OSMOLALITY AND HYPONATREMIA (7) Abdominal abscess Code(s): K65.1 - PERITONEAL ABSCESS (8) Ascites Code(s): R18.8 - OTHER ASCITES Qualifiers: Ascites type: other type Qualified Code(s): R18.8 - Other ascites; R18.8 - Other ascites
--- NOTE | 2017-05-27 11:08 | DS ---
Physical Examination Vital Signs: Vital Signs Temperature 98.4 F 05/27/17 09:27 Pulse Rate 85 05/27/17 09:27 Respiratory Rate 18 05/27/17 09:27 Blood Pressure 129/65 05/27/17 09:27 O2 Sat by Pulse Oximetry (%) 98 05/26/17 20:35 Findings/Remarks: feels well no c.o no apin VSS afebrile; R abdomen tube drain changed yesterday, no leak around tube and very small amount of DC in tube d/w pt and daughter at bedside; cleared by surgery to go home; F/u with surgery, GI, PCP and IR as advised; remove R drain as advised by surgery ATB and Lasix, K po ordered / pharmacy and d/w pt and daughter scripts done; d/w CM; t time 40 min Constitutional: Yes: No Distress, Calm Eyes: Yes: Conjunctiva Clear HENT: Yes: Atraumatic Neck: Yes: Supple Cardiovascular: Yes: Regular Rate and Rhythm Respiratory: Yes: CTA Bilaterally Gastrointestinal: Yes: Soft, Other (R drain tube no leakage no rash no tenderness;). No: Tenderness Renal/: No: CVA Tenderness - Left, CVA Tenderness - Right Musculoskeletal: No: Back Pain, Joint Stiffness, Joint Swelling Extremities: No: Cold, Cool, Cyanosis Edema: Yes (much improved) Neurological: Yes: WNL, Alert, Oriented ...Motor Strength: WNL Psychiatric: Yes: WNL, Alert, Oriented. No: Agitated, Suicidal Ideation Labs: CBC, BMP 05/25/17 06:00 05/25/17 06:00 Discharge Summary Reason For Visit: ACUTE KIDNEY INJURY Current Active Problems SHARITA (acute kidney injury) (Acute) Abdominal abscess (Acute) Anasarca (Acute) Ascites (Acute) Hypoalbuminemia (Acute) Hyponatremia (Acute) Procedures: Principal: admitted with legs edema, LLE cellulitis; UTI;. also found to have R abdominal abscess after R hemicolectomy;. also ARF/ IV depleted , hypoNa and hypoalbuminemia; Other Procedures: IV ATB per ID; seen by surgery;. had R abdominal draain by IR ;. po lasix and K; cardiology eval; Hospital Course: improved with above; DC home on PO ATB and with R abdominal draining tube; F/u as advised and remove tube per surgery Condition: Improved - Instructions Diet, Activity, Other Instructions: f.u PCP and surgery in 1-2 weeks after DC home; remove drain per surgery outpt; f/u labs CBC CMP in 1-2 weeks after DC home RTER if worse or recurrent c/o or fever; falls PFX; GI f/u as advised legs elevation; check weight daily; call me if up > 2-3 lbs home VNS for R abdominal drainage site; go to ER or call us if any pain, rash or drainage Referrals: Sayda Segura [Primary Care Provider] - Michael Torres MD [Staff Physician] - Eddie Willard MD [Staff Physician] - Disposition: VNS/HOME HEALTH CARE - Home Medications Comprehensive Discharge Medication List: Ambulatory Orders Furosemide [Lasix] 40 mg PO DAILY 05/16/17 Iron 0 mg PO DAILY 05/16/17 Multivitamin/Iron/Folic Acid [Centrum Women Tablet] 1 each PO DAILY 05/16/17 Pantoprazole Sodium 40 mg PO DAILY 05/16/17 Potassium Chloride 20 meq PO DAILY 05/16/17 Acetaminophen [Tylenol .Regular Strength -] 650 mg PO Q6H PRN #0 tablet Amox-Tr/K Cl [Augmentin 875-125mg Tablet -] 1 tab PO BID@0800,1730 #14 tablet Furosemide [Lasix -] 40 mg PO DAILY #90 tablet 05/25/17 Hydrocortisone 1% Cream [Hytone 1% Cream -] 1 applic TP BID #1 tube 05/25/17 Levothyroxine [Synthroid -] 50 mcg PO DAILY@0700 tablet 05/25/17 Multivitamins [Multivit ([facility] Formul[facility])] 1 tab PO DAILY tab 05/25/17 Pantoprazole Sodium [Protonix -] 40 mg PO DAILY tab 05/25/17 Polyethylene Glycol 3350 [Miralax 119 gm Btl -] 17 gm PO DAILY PRN #0 bottle Potassium Chloride [K-Dur -] 40 meq PO DAILY #90 tab 05/25/17
--- NOTE | 2017-05-27 12:10 | PN ---
Progress Note, Physician Chief Complaint: The patient seen in her room. Comfortable. The drain gas been changed. No chest pain. No fever. Good urine output. - Current Medication List Current Medications: Active Medications Acetaminophen (Tylenol -) 650 mg PO Q6H PRN PRN Reason: FEVER OR PAIN Last Admin: 05/26/17 17:49 Dose: 325 mg Amoxicillin/Clavulanate Potassium (Augmentin - 875mg Tablet) 1 tab PO BID@0800, 1730 [facility] Last Admin: 05/27/17 09:21 Dose: 1 tab Ferrous Sulfate (Feosol -) 325 mg PO DAILY@0800 [facility] Last Admin: 05/27/17 09:21 Dose: 325 mg Furosemide (Lasix -) 40 mg PO DAILY [facility] Last Admin: 05/27/17 09:21 Dose: 40 mg Hydrocortisone (Hytone 1% Cream -) 1 applic TP BID [facility] Last Admin: 05/27/17 09:33 Dose: 1 applic Levothyroxine Sodium (Synthroid -) 50 mcg PO DAILY@0700 [facility] Last Admin: 05/27/17 06:03 Dose: 50 mcg Multivitamins/Minerals/Vitamin C (Tab-A-Vit -) 1 tab PO DAILY [facility] Last Admin: 05/27/17 09:26 Dose: 1 tab Pantoprazole Sodium (Protonix -) 40 mg PO DAILY [facility] Last Admin: 05/27/17 09:26 Dose: 40 mg Polyethylene Glycol (Miralax (For Daily Use) -) 17 gm PO DAILY PRN PRN Reason: CONSTIPATION Potassium Chloride (K-Dur -) 40 meq PO DAILY [facility] Last Admin: 05/27/17 09:26 Dose: 40 meq - Objective Vital Signs: Vital Signs Temperature 98.4 F 05/27/17 09:27 Pulse Rate 85 05/27/17 09:27 Respiratory Rate 18 05/27/17 09:27 Blood Pressure 129/65 05/27/17 09:27 O2 Sat by Pulse Oximetry (%) 98 05/26/17 20:35 Constitutional: Yes: No Distress, Anxious Eyes: Yes: Conjunctiva Clear HENT: Yes: Normocephalic Neck: Yes: Trachea Midline Cardiovascular: Yes: S1, S2 Respiratory: Yes: CTA Bilaterally Gastrointestinal: Yes: Normal Bowel Sounds, Other (DELFIN drain with minimal purilent drainage.) Genitourinary: No: CVA Tenderness - Left, CVA Tenderness - Right Labs: CBC, BMP 05/25/17 06:00 05/25/17 06:00 INR, PTT INR 1.22 (0.82-1.09) H 05/16/17 10:54 Problem List - Problems (1) SHARITA (acute kidney injury) Code(s): N17.9 - ACUTE KIDNEY FAILURE, UNSPECIFIED (2) Abdominal abscess Code(s): K65.1 - PERITONEAL ABSCESS (3) Ascites Code(s): R18.8 - OTHER ASCITES Qualifiers: Ascites type: other type Qualified Code(s): R18.8 - Other ascites; R18.8 - Other ascites (4) Hypoalbuminemia Code(s): E88.09 - OTH DISORDERS OF PLASMA-PROTEIN METABOLISM, NEC (5) Hyponatremia Code(s): E87.1 - HYPO-OSMOLALITY AND HYPONATREMIA (6) Chronic kidney disease Code(s): N18.9 - CHRONIC KIDNEY DISEASE, UNSPECIFIED Qualifiers: Chronic kidney disease stage: stage 2 (mild) Qualified Code(s): N18.2 - Chronic kidney disease, stage 2 (mild); N18.2 - Chronic kidney disease, stage 2 (mild) (7) Colon neoplasm Code(s): D49.0 - NEOPLASM OF UNSPECIFIED BEHAVIOR OF DIGESTIVE SYSTEM Assessment/Plan The patient is a 77 year old female, with a significant past medical history of colon cancer s/p right hemicolectomy , atelectasis both lungs, SHARITA, and hypothyroidism, who presented to the ER with Left lower extremity cellulitis, also both legs edema , ascites; ARF/CRF, Hyponatremia. The DELFIN drain replaced. The patient says she ma be discharged today. LLE cellulitis improving. Acute Renal failure. The azotemia is improving towards her baseline. Serum Sodium in acceptable range and stable If discharged, she should have VNS arrangements. I will follow her as out patient as needed. Thanks again for your trust in our services. Swetha Light MD
== END 2017-05-27 12:35 | disposition home health service (06) | DRG 862 ==
LOC: JER 09:28 → JERBED 12:35 → J7W 14:00
PROVIDERS: ADMIT Internal Medicine; ATTEND Internal Medicine
PROC: 30233N1 Transfusion of Nonautologous Red Blood Cells into Peripheral Vein, Percutaneous Approach (ICD-10-PCS; principal; 2017-05-19)
PROC: 0W9G30Z Drainage of Peritoneal Cavity with Drainage Device, Percutaneous Approach (ICD-10-PCS; 2017-05-19)
PROC: BW11YZZ Fluoroscopy of Abdomen and Pelvis using Other Contrast (ICD-10-PCS; 2017-05-23)
DX: T81.4XXA Infection following a procedure, initial encounter (principal); K65.1 Peritoneal abscess; N17.9 Acute kidney failure, unspecified; L03.116 Cellulitis of left lower limb; N39.0 Urinary tract infection, site not specified; E87.1 Hypo-osmolality and hyponatremia; R18.8 Other ascites; J98.11 Atelectasis; Y83.9 Surgical procedure, unspecified as the cause of abnormal reaction of the patient, or of later complication, without mention of misadventure at the time of the procedure; E88.09 Other disorders of plasma-protein metabolism, not elsewhere classified; D64.9 Anemia, unspecified; E03.9 Hypothyroidism, unspecified; Z85.038 Personal history of other malignant neoplasm of large intestine; N18.9 Chronic kidney disease, unspecified; D72.829 Elevated white blood cell count, unspecified; E87.70 Fluid overload, unspecified
CPT/HCPCS: 36415; 36430; 49406; 49423; 71010-TC; 74176-TC; 76000-TC; 76080-TC; 76098-TC; 76700-TC; 77012-TC; 80048; 80053; 81003; 81015; 82272; 82436; 82570; 82728; 83540; 83550; 83735; 83880; 84100; 84133; 84156; 84300; 84439; 84443; 84540; 85025; 85027; 85610; 85730; 86850; 86900; 86901; 86922; 87040; 87070; 87075; 87076; 87086; 87102; 87116; 87186; 87205; 87206; 87210; 87899; 93005; 93010; 93306-TC; 93970-TC; 93971-TC; 99284-25; C1729; C1769; J1644; P9038; P9058; Q9967

== ENCOUNTER 2017-08-29 10:42 | Inpatient (IN) | payer OTHER, BC ==
--- NOTE | 2017-08-29 14:59 | PDOC ---
History of Present Illness - General Chief Complaint: Bleeding from Anus Stated Complaint: VAGINAL BLEEDING Time Seen by Provider: 08/29/17 11:40 History Source: Patient - History of Present Illness Timing/Duration: reports: other (this am) Past History - Past Medical History Allergies/Adverse Reactions: Allergies Allergy/AdvReac Type Severity Reaction Status Date / Time No Known Allergies Allergy Verified 08/29/17 11:39 Home Medications: Ambulatory Orders Acetaminophen [Tylenol .Regular Strength -] 650 mg PO Q6H PRN #0 tablet Levothyroxine [Synthroid -] 50 mcg PO DAILY@0700 tablet 05/25/17 Multivitamins [Multivit ([facility] Formul[facility])] 1 tab PO DAILY tab 05/25/17 Pantoprazole Sodium [Protonix -] 40 mg PO DAILY tab 05/25/17 Anemia: Yes Cancer: Yes (COLON CA AND TUMOR) Disorders: Yes (ACUTE KIDNEY INJURY) Liver Disease: Yes (cirrhosis) Thyroid Disease: Yes (HYPOTHYROIDISM) - Surgical History Abdominal Surgery: Yes (COLON) - Suicide/Smoking/Psychosocial Hx Smoking History: Former smoker Have you smoked in the past 12 months: No If you are a former smoker, when did you quit?: 50 YEARS AGO Information on smoking cessation initiated: No 'Breaking Loose' booklet given: 04/21/17 Hx Alcohol Use: No Drug/Substance Use Hx: No Substance Use Type: None Hx Substance Use Treatment: No Review of Systems - Review of Systems Constitutional: No: Chills, Fever Respiratory: No: Shortness of Breath Cardiac (ROS): No: Chest Pain, Lightheadedness, Palpitations, Syncope ABD/GI: No: Constipated, Nausea, Vomiting, Abdominal cramping *Physical Exam - Vital Signs Last Vital Signs Temp Pulse Resp BP Pulse Ox 97.9 F 84 16 123/60 100 08/29/17 11:39 08/29/17 11:39 08/29/17 11:39 08/29/17 11:39 08/29/17 11:39 - Physical Exam General Appearance: Yes: Appropriately Dressed. No: Apparent Distress HEENT: positive: Normal Voice Neck: positive: Supple Respiratory/Chest: negative: Respiratory Distress Cardiovascular: positive: Regular Rate, S1, S2 Gastrointestinal/Abdominal: positive: Soft. negative: Tender Rectal Exam: positive: other (sig amount of maroon colored stool) Integumentary: positive: Dry, Warm Neurologic: positive: Fully Oriented, Alert, Normal Mood/Affect ED Treatment Course - LABORATORY CBC & Chemistry Diagram: 08/29/17 15:00 08/29/17 15:00 Medical Decision Making - Medical Decision Making 08/29/17 14:55 77-year-old female, history of colon cancer status post resection, cirrhosis, Whitfield's esophagus, status post endoscopy with clipping of bleeding site to distal esophagus [address] Willard, with hemoglobin of 10 day 4 days ago , here w/ 1 episode of black stool this a.m. States stool was loose. No constipation, abdominal pain, nausea, vomiting, fever, chills, weakness, or dizziness. See exam UGIB w/p recent surveillance endoscopy for Whitfield's w/ clipping of distal esophagus bleeding site Stable in ED w/ benign abd and significant maroon colored stool on glove -IVF -labs -GI c/s -admit 08/29/17 15:[address] Sayda Segura, wants patient admitted to her service. Pending GI c/s for recs. Will start protonix as per ED attending 08/29/17 15:25 08/29/17 15:32 08/29/17 16:29 Dr. Willard bedside evaluating patient. Hemoglobin came back at 8, will do CBC every 2 hours while patient in ER. Patient has a ready bed on [facility] but as per M.Richard, wants patient upgraded to ICU. Now waiting for lumber racker to call back. Of note, patient had ultrasound earlier today which showed signs consistent with cirrhosis. GI recommending octreotide at this time 08/29/17 16:[address] Mckeon for the ICU *DC/Admit/Observation/Transfer Diagnosis at time of Disposition: GIB (gastrointestinal bleeding) Qualifiers: GI bleed type/associated pathology: melena Qualified Code(s): K92.1 - Melena - Discharge Dispostion Condition at time of disposition: Fair Admit: Yes - Referrals - Patient Instructions - Post Discharge Activity
[2017-08-29] MEDS ORDERED: SODIUM CHLORIDE 500 ML IV STA (15:02)
[2017-08-29] MEDS ORDERED: PANTOPRAZOLE SODIUM 40 MG VIAL IVPUSH ONE (15:32)
[2017-08-29 15:42] LABS: BASO % 0.8 % (0-2.0); EOS % 2.6 % (0-4.5); HEMATOCRIT 25.5 % (32.4-45.2); HEMOGLOBIN 8.5 GM/dL (10.7-15.3); LYMPH % 13.6 % (8-40); MCH 29.6 pg (25.7-33.7); MCHC 33.5 g/dl (32.0-36.0); MEAN CELL VOLUME 88.4 fl (80-96); MEAN PLT VOLUME 8.4 fl (7.5-11.1); PLATELET COUNT 182 K/MM3 (134-434); RBC 2.89 M/mm3 (3.60-5.2); RDW 15.9 % (11.6-15.6); WHITE BLOOD COUNT 6.2 K/mm3 (4.0-10.0)
[2017-08-29] MEDS ORDERED: PANTOPRAZOLE SODIUM 80 MG in SODIUM CHLORIDE 100 ML IVPB SCH (15:45)
[2017-08-29] MEDS ORDERED: PANTOPRAZOLE SODIUM 40 MG VIAL ONE (15:49)
[2017-08-29] MEDS ORDERED: PANTOPRAZOLE SODIUM 160 MG in DEXTROSE 5%-WATER - 290 ML IVPB ONE (16:00)
[2017-08-29 16:06] LABS: INR 1.08 (0.82-1.09); PROTHROMBIN TIME (PATIENT) 12.2 SEC (9.98-11.88)
[2017-08-29 16:11] LABS: ALBUMIN 2.7 g/dl (3.4-5.0); ALK PHOS 377 U/L (45-117); ANION GAP 9 (8-16); BILIRUBIN,TOTAL 0.4 mg/dL (0.2-1.0); BLOOD UREA NITROGEN 40 mg/dL (7-18); CALCIUM 8.3 mg/dL (8.5-10.1); CHLORIDE 106 mmol/L (98-107); CO2 24 mmol/L (21-32); CREATININE 1.3 mg/dL (0.55-1.02); GLUCOSE,RANDOM 92 mg/dL (74-106); POTASSIUM 4.5 mmol/L (3.5-5.1); SGOT/AST 41 U/L (15-37); SGPT/ALT 26 U/L (12-78); SODIUM 139 mmol/L (136-145); TOT PROT 7.2 g/dl (6.4-8.2)
[2017-08-29] MEDS ORDERED: OCTREOTIDE ACETATE 50 MCG/1 ML - 1 ML VIAL IVPUSH ONE (16:36)
--- NOTE | 2017-08-29 16:39 | CON.GI ---
Consult Consult Specialty:: Gastroenterology Referred by:: Dr. Segura Reason for Consultation:: GI bleed - History of Present Illness Chief Complaint: Maroon colored stool and melena this AM. History of Present Illness: 77F underwent an EGD on 08/[address] Willard during which biopsies were taken from the distal esophagus which caused bleeding that required endoclipping. She was sent for a CBC the next day and reports it as being normal. Today while having a sonogram here today she noted black and marroon colored rectal bleeding. She had one episode and none since. The sonogram was done to assess her cirrhosis which Dr. Willard has attributed to a fatty liver. She has a h/o Sexton's esophagus and was told that her esophagus was very raw. 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 She tells me that her renal function has normalized. She has not yet started chemotherapy. 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 SAMPSON), Cholelithiasis, Other (ASCITES POST SURGERY, HYPOALBUMINEMIA) Renal/: Yes: Renal Failure (resolved) Infectious Disease: Yes: Other (INTRAABDOMINAL ABSCESS POST SURGERY) Endocrine: Yes: Hyperthyroidism (treated with RAIU and now hypothyroid, recent benign biopsy) Dermatology: Yes: Cellulitis - Past Surgical History Past Surgical History: Yes: Colonoscopy, (C section x 2), Oopherectomy , Upper Endoscopy Additional Surgical History: s/p Right hemiocolectomy, ovariectomy 04/24/17 for cancer - Alcohol/Substance Use Hx Alcohol Use: No History of Substance Use: reports: None - Smoking History Smoking history: Former smoker Have you smoked in the past 12 months: No If you are a former smoker, when did you quit?: 50 YEARS AGO - Social History Usual Living Arrangement: Alone ADL: Independent Place of : [facility] History of Recent Travel: No Home Medications - Allergies Allergies/Adverse Reactions: Allergies Allergy/AdvReac Type Severity Reaction Status Date / Time No Known Allergies Allergy Verified 08/29/17 11:39 - Home Medications Home Medications: Ambulatory Orders Acetaminophen [Tylenol .Regular Strength -] 650 mg PO Q6H PRN #0 tablet Levothyroxine [Synthroid -] 50 mcg PO DAILY@0700 tablet 05/25/17 Multivitamins [Multivit ([facility] Formulary)] 1 tab PO DAILY tab 05/25/17 Pantoprazole Sodium [Protonix -] 40 mg PO DAILY tab 05/25/17 Family Disease History - Family Disease History Family Disease History: CA: Father (lung cancer), Mother (ovarian cancer), Brother (lung cancer), Other: Son, Daughter (lupus) Review of Systems - Review of Systems Constitutional: reports: Unintentional Wgt. Loss, Weakness Eyes: reports: No Symptoms HENT: reports: No Symptoms Neck: reports: No Symptoms Cardiovascular: reports: No Symptoms Respiratory: reports: No Symptoms Gastrointestinal: reports: Rectal Bleeding Genitourinary: reports: No Symptoms Neurological: reports: No Symptoms Physical Exam-GI Vital Signs: Vital Signs Temperature 97.9 F 08/29/17 11:39 Pulse Rate 77 08/29/17 16:19 Respiratory Rate 16 08/29/17 16:19 Blood Pressure 114/48 08/29/17 16:19 O2 Sat by Pulse Oximetry (%) 100 08/29/17 16:19 CBC,CMP WBC 6.2 K/mm3 (4.0-10.0) 08/29/17 15:00 RBC 2.89 M/mm3 (3.60-5.2) L D 08/29/17 15:00 Hgb 8.5 GM/dL (10.7-15.3) L D 08/29/17 15:00 Hct 25.5 % (32.4-45.2) L D 08/29/17 15:00 MCV 88.4 fl (80-96) 08/29/17 15:00 MCH 29.6 pg (25.7-33.7) 08/29/17 15:00 MCHC 33.5 g/dl (32.0-36.0) 08/29/17 15:00 RDW 15.9 % (11.6-15.6) H 08/29/17 15:00 Plt Count 182 K/MM3 (134-434) 08/29/17 15:00 MPV 8.4 fl (7.5-11.1) 08/29/17 15:00 Neutrophils % 71.0 % (42.8-82.8) 08/29/17 15:00 Lymphocytes % 13.6 % (8-40) D 08/29/17 15:00 Monocytes % 12.0 % (3.8-10.2) H 08/29/17 15:00 Eosinophils % 2.6 % (0-4.5) D 08/29/17 15:00 Basophils % 0.8 % (0-2.0) 08/29/17 15:00 Sodium 139 mmol/L (136-145) 08/29/17 15:00 Potassium 4.5 mmol/L (3.5-5.1) 08/29/17 15:00 Chloride 106 mmol/L (98-107) 08/29/17 15:00 Carbon Dioxide 24 mmol/L (21-32) 08/29/17 15:00 Anion Gap 9 (8-16) 08/29/17 15:00 BUN 40 mg/dL (7-18) H 08/29/17 15:00 Creatinine 1.3 mg/dL (0.55-1.02) H 08/29/17 15:00 Creat Clearance w eGFR 39.72 (>60) 08/29/17 15:00 Random Glucose 92 mg/dL (74-106) 08/29/17 15:00 Calcium 8.3 mg/dL (8.5-10.1) L 08/29/17 15:00 Total Bilirubin 0.4 mg/dL (0.2-1.0) D 08/29/17 15:00 AST 41 U/L (15-37) H 08/29/17 15:00 ALT 26 U/L (12-78) 08/29/17 15:00 Alkaline Phosphatase 377 U/L (45-117) H 08/29/17 15:00 Total Protein 7.2 g/dl (6.4-8.2) 08/29/17 15:00 Albumin 2.7 g/dl (3.4-5.0) L 08/29/17 15:00 Current Medications Generic Name Dose Route Start Last Admin Trade Name Freq PRN Reason Stop Dose Admin Pantoprazole Sodium 160 mg/ 290 mls @ 14.5 mls/hr 08/29/17 16:00 08/29/17 16: 18 Dextrose IVPB 08/30/17 11:59 14.5 mls/hr Q20H ONE Administration Octreotide Acetate 1,200 mcg/ 500 mls @ 20.83 mls/hr 08/29/17 17:00 Sodium Chloride IVPB ASDIR KARL 50 MCG/HR Constitutional: Yes: Anxious Eyes: Yes: Conjunctiva Clear HENT: Yes: Atraumatic Neck: Yes: Supple Cardiovascular: Yes: Regular Rate and Rhythm Respiratory: Yes: CTA Bilaterally Gastrointestinal Inspection: Yes: Scars (laparoscopic and overlapping midline suprapubic vertical incisions) ...Auscultate: Yes: Normoactive Bowel Sounds ...Palpate: Yes: Soft, Other (nontender) ...Rectal Exam: Yes: Guaiac Positive (radha of dried red blood), Hemorrhoids/ External Labs: CBC, BMP 08/29/17 15:00 08/29/17 15:00 Imaging - Results Ultrasound: Report Reviewed (cholelithiasis, cirrhosis) Problem List - Problems (1) GERD (gastroesophageal reflux disease) Code(s): K21.9 - GASTRO-ESOPHAGEAL REFLUX DISEASE WITHOUT ESOPHAGITIS (2) Cholelithiasis Code(s): K80.20 - CALCULUS OF GALLBLADDER W/O CHOLECYSTITIS W/O OBSTRUCTION (3) Acute blood loss anemia Assessment/Plan: Suspect bleeding from the distal esophageal biopsy sites that has not been controlled by the clips. This may reflects portal hypertension given her cirrhosis so will empirically start octreotide with the pantoprazole drip, Given portal hypertension concerns would not transfuse for Hb over 8. Will follow CBCs. I have discussed the potential need for emergent endoscopic intervention with risk of distal esophageal perforation. Code(s): D62 - ACUTE POSTHEMORRHAGIC ANEMIA (4) Barretts esophagus Code(s): K22.70 - SEXTON'S ESOPHAGUS WITHOUT DYSPLASIA (5) Cirrhosis Code(s): K74.60 - UNSPECIFIED CIRRHOSIS OF LIVER (6) Colon neoplasm Code(s): D49.0 - NEOPLASM OF UNSPECIFIED BEHAVIOR OF DIGESTIVE SYSTEM Assessment/Plan Octreotide and PPI drips Serial CBCs Transfuse as needed Will reserve repeat EGD for persistent bleeding.
[2017-08-29] MEDS ORDERED: OCTREOTIDE ACETATE 1,200 MCG in DEXTROSE 5%-WATER - 488 ML IVPB SCH (16:45)
[2017-08-29] MEDS ORDERED: SODIUM CHLORIDE IVPB SCH (17:00)
[2017-08-29] MEDS ORDERED: OCTREOTIDE ACETATE IVPB SCH (17:00)
[2017-08-29 17:53] LABS: EOS % 2.9 % (0-4.5); HEMATOCRIT 23.5 % (32.4-45.2); HEMOGLOBIN 7.9 GM/dL (10.7-15.3); LYMPH % 14.8 % (8-40); MCH 30.1 pg (25.7-33.7); MCHC 33.5 g/dl (32.0-36.0); MEAN CELL VOLUME 89.8 fl (80-96); MEAN PLT VOLUME 9.2 fl (7.5-11.1); MONO % 13.7 % (3.8-10.2); NEUT % 67.6 % (42.8-82.8); PLATELET COUNT 146 K/MM3 (134-434); RBC 2.62 M/mm3 (3.60-5.2); RDW 16.1 % (11.6-15.6); WHITE BLOOD COUNT 5.5 K/mm3 (4.0-10.0)
[2017-08-29 20:10] VITALS: BMI 22.8
[2017-08-29] MEDS ORDERED: ACETAMINOPHEN 325 MG TABLET (FP) PO PRN (20:39)
--- NOTE | 2017-08-29 20:46 | HP ---
Admitting History and Physical - Primary Care Physician PCP: Sayda Segura S - Admission Chief Complaint: GI bleed History of Present Illness: 77-year-old female, history of colon cancer status post resection about 5 months ago, cirrhosis, Whitfield's esophagus, status post endoscopy 5 days ago with clipping of bleeding site to distal esophagus [address] Willard, had hemoglobin of 10 day 4 days ago, here w/ 1 episode of black stool this a.m. States stool was loose. No constipation, abdominal pain, nausea, vomiting, fever, chills, weakness, or dizziness. 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 SAMPSON), Cholelithiasis, Other (ASCITES POST SURGERY, HYPOALBUMINEMIA) Renal/: Yes: Renal Failure (resolved) Heme/Onc: Yes: Anemia Infectious Disease: Yes: Other (INTRAABDOMINAL ABSCESS POST SURGERY) Endocrine: Yes: Hyperthyroidism (treated with RAIU and now hypothyroid, recent benign biopsy) Dermatology: Yes: Cellulitis - Past Surgical History Past Surgical History: Yes: Colonoscopy, (C section x 2), Oopherectomy , Upper Endoscopy - Smoking History Smoking history: Former smoker Have you smoked in the past 12 months: No If you are a former smoker, when did you quit?: 50 YEARS AGO - Alcohol/Substance Use Hx Alcohol Use: No History of Substance Use: reports: None - Social History ADL: Independent History of Recent Travel: No Home Medications - Allergies Allergies/Adverse Reactions: Allergies Allergy/AdvReac Type Severity Reaction Status Date / Time No Known Allergies Allergy Verified 08/29/17 11:39 - Home Medications Home Medications: Ambulatory Orders Acetaminophen [Tylenol .Regular Strength -] 650 mg PO Q6H PRN #0 tablet Levothyroxine [Synthroid -] 50 mcg PO DAILY@0700 tablet 05/25/17 Multivitamins [Multivit ([facility] Formulary)] 1 tab PO DAILY tab 05/25/17 Pantoprazole Sodium [Protonix -] 40 mg PO DAILY tab 05/25/17 Family Disease History - Family Disease History Family Disease History: CA: Father (lung cancer), Mother (ovarian cancer), Brother (lung cancer), Other: Son, Daughter (lupus) Review of Systems - Review of Systems Constitutional: denies: Chills, Fever, Lethargy, Loss of Appetite Eyes: denies: Blind Spots, Blurred Vision, Double Vision HENT: denies: Difficult Swallowing, Epistaxis Neck: denies: Stiffness, Tenderness Cardiovascular: denies: Chest Pain, Shortness of Breath Respiratory: denies: Cough, Hemoptysis, SOB Gastrointestinal: reports: Constipation. denies: Abdominal Pain, Bloating, Diarrhea, Vomiting Genitourinary: reports: Dysuria (frequent urination but no burning no hematuria) . denies: Flank Pain Musculoskeletal: denies: Back Pain, Extremity Pain Integumentary: denies: Eczema, Rash, Wound Neurological: reports: Unsteady Gait, Weakness (general). denies: Change in LOC , Change in Speech, Confusion, Dizziness, Headache, Seizure, Syncope Endocrine: denies: Excessive Sweating Hematology/Lymphatic: denies: Easily Bruised, Excessive Bleeding Psychiatric: denies: Anxiety, Depression Physical Examination Vital Signs: Vital Signs Temperature 98.2 F 08/29/17 19:30 Pulse Rate 74 08/29/17 19:30 Respiratory Rate 16 08/29/17 19:30 Blood Pressure 136/52 08/29/17 19:30 O2 Sat by Pulse Oximetry (%) 100 08/29/17 19:30 Constitutional: Yes: No Distress, Calm Eyes: Yes: Conjunctiva Clear HENT: Yes: Atraumatic Neck: Yes: Supple Cardiovascular: Yes: Regular Rate and Rhythm Respiratory: Yes: CTA Bilaterally Gastrointestinal: Yes: Soft, Melena. No: Distention, Tenderness Renal/: No: CVA Tenderness - Left, CVA Tenderness - Right, Hematuria Musculoskeletal: No: Joint Stiffness, Joint Swelling Extremities: No: Cold, Cool, Cyanosis Edema: No Integumentary: No: Rash, Venous Stasis Changes Neurological: Yes: WNL, Alert, Oriented ...Motor Strength: WNL Psychiatric: Yes: WNL, Alert, Oriented. No: Agitated, Suicidal Ideation Labs: CBC, BMP 08/29/17 17:00 08/29/17 15:00 Imaging - Results Chest X-ray: Report Reviewed Other: Report Reviewed Assessment/Plan 77-year-old female, history of colon cancer status post resection, cirrhosis, Whitfield's esophagus, status post endoscopy with clipping of bleeding site to distal esophagus [address] Willard, with hemoglobin of 10 day 4 days ago , here w/ 1 episode of black stool this a.m. States stool was loose. Hg 8 and + melena will admit to ICU GI eval NPO IV octreotide IV PPI serial CBC might need blood transfusions if active bleeding will need emergent EGD also d/w pt and son & daughter: will check UCX r/o UTI gastric PFX, PPI falls PFX pt advised do not get OOB alone, call for help if needs OOB DVT PFX with TEDs and SCDs, can not use sq heparin b/o GI bleed; pt at risk for DVT/PE given immobility and ho cancer, hypercoag state, pt and family aware prognosis guarded t time 75 min
--- NOTE | 2017-08-29 21:01 | CONSULT ---
Consult Consult Specialty:: Pulm/CCM Reason for Consultation:: GIB - History of Present Illness Chief Complaint: GIB History of Present Illness: 77yow with PMHx of colon cancer s/p rt hemicolectmy, cirrhosis, Sexton's esophagus, s/p endoscopy with clipping of bleeding polyp to distal esophagus who presents to ED with c/o 1 episode of maroon colored and black loose stool this a.m. She denied constipation, abdominal pain, nausea, vomiting, fever, chills, weakness, or dizziness. In ED HR 84, BP 123/60, O2 sat 100% o rm air. Labs notable for Hgb 7.9 down fro 8.5 on08/26, BUN/creat 40/1.3. She was started on PPI and octreotide drips and transferred to ICU for management. In ICU HD stable. No new episodes of melena. 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 SAMPSON), Cholelithiasis, Other (ASCITES POST SURGERY, HYPOALBUMINEMIA) Renal/: Yes: Renal Failure (resolved) Infectious Disease: Yes: Other (INTRAABDOMINAL ABSCESS POST SURGERY) Endocrine: Yes: Hyperthyroidism (treated with RAIU and now hypothyroid, recent benign biopsy) Dermatology: Yes: Cellulitis - Past Surgical History Past Surgical History: Yes: Colonoscopy, (C section x 2), Oopherectomy , Upper Endoscopy Additional Surgical History: s/p Right hemiocolectomy, ovariectomy 04/24/17 for cancer - Alcohol/Substance Use Hx Alcohol Use: No History of Substance Use: reports: None - Smoking History Smoking history: Former smoker Have you smoked in the past 12 months: No If you are a former smoker, when did you quit?: 50 YEARS AGO - Social History Usual Living Arrangement: Alone ADL: Independent History of Recent Travel: No Home Medications - Allergies Allergies/Adverse Reactions: Allergies Allergy/AdvReac Type Severity Reaction Status Date / Time No Known Allergies Allergy Verified 08/29/17 11:39 - Home Medications Home Medications: Ambulatory Orders Acetaminophen [Tylenol .Regular Strength -] 650 mg PO Q6H PRN #0 tablet 10/22/ 17 Levothyroxine [Synthroid -] 50 mcg PO DAILY@0700 tablet 05/25/17 Multivitamins [Multivit ([facility] Formulary)] 1 tab PO DAILY tab 05/25/17 Pantoprazole Sodium [Protonix -] 40 mg PO DAILY tab 05/25/17 Family Disease History - Family Disease History Family Disease History: CA: Father (lung cancer), Mother (ovarian cancer), Brother (lung cancer), Other: Son, Daughter (lupus) Review of Systems - Review of Systems Constitutional: reports: No Symptoms Eyes: reports: No Symptoms HENT: reports: No Symptoms Neck: reports: No Symptoms Cardiovascular: reports: No Symptoms Respiratory: reports: No Symptoms Gastrointestinal: reports: No Symptoms Genitourinary: reports: No Symptoms Musculoskeletal: reports: No Symptoms Integumentary: reports: No Symptoms Neurological: reports: No Symptoms Endocrine: reports: No Symptoms Hematology/Lymphatic: reports: No Symptoms Psychiatric: reports: No Symptoms Physical Exam Vital Signs: Vital Signs Temperature 98.2 F 08/29/17 19:30 Pulse Rate 74 08/29/17 19:30 Respiratory Rate 16 08/29/17 19:30 Blood Pressure 136/52 08/29/17 19:30 O2 Sat by Pulse Oximetry (%) 100 08/29/17 19:30 Constitutional: Yes: Well Nourished, No Distress, Calm Eyes: Yes: WNL, PERRL HENT: Yes: Atraumatic, Normocephalic Neck: Yes: Supple, Trachea Midline Cardiovascular: Yes: Regular Rate and Rhythm Respiratory: Yes: Regular, CTA Bilaterally Gastrointestinal: Yes: Normal Bowel Sounds, Soft Renal/: Yes: Braga Present Extremities: Yes: WNL Edema: No Peripheral Pulses WNL: Yes Integumentary: Yes: WNL Neurological: Yes: Alert, Oriented Psychiatric: Yes: Alert, Oriented Labs: CBC, BMP 08/29/17 17:00 08/29/17 15:00 CBC,CMP WBC 5.5 K/mm3 (4.0-10.0) 08/29/17 17:00 RBC 2.62 M/mm3 (3.60-5.2) L 08/29/17 17:00 Hgb 7.9 GM/dL (10.7-15.3) L 08/29/17 17:00 Hct 23.5 % (32.4-45.2) L 08/29/17 17:00 MCV 89.8 fl (80-96) 08/29/17 17:00 MCH 30.1 pg (25.7-33.7) 08/29/17 17:00 MCHC 33.5 g/dl (32.0-36.0) 08/29/17 17:00 RDW 16.1 % (11.6-15.6) H 08/29/17 17:00 Plt Count 146 K/MM3 (134-434) 08/29/17 17:00 MPV 9.2 fl (7.5-11.1) 08/29/17 17:00 Neutrophils % 67.6 % (42.8-82.8) 08/29/17 17:00 Lymphocytes % 14.8 % (8-40) 08/29/17 17:00 Monocytes % 13.7 % (3.8-10.2) H 08/29/17 17:00 Eosinophils % 2.9 % (0-4.5) 08/29/17 17:00 Basophils % 1.0 % (0-2.0) 08/29/17 17:00 Sodium 139 mmol/L (136-145) 08/29/17 15:00 Potassium 4.5 mmol/L (3.5-5.1) 08/29/17 15:00 Chloride 106 mmol/L (98-107) 08/29/17 15:00 Carbon Dioxide 24 mmol/L (21-32) 08/29/17 15:00 Anion Gap 9 (8-16) 08/29/17 15:00 BUN 40 mg/dL (7-18) H 08/29/17 15:00 Creatinine 1.3 mg/dL (0.55-1.02) H 08/29/17 15:00 Creat Clearance w eGFR 39.72 (>60) 08/29/17 15:00 Random Glucose 92 mg/dL (74-106) 08/29/17 15:00 Calcium 8.3 mg/dL (8.5-10.1) L 08/29/17 15:00 Total Bilirubin 0.4 mg/dL (0.2-1.0) D 08/29/17 15:00 AST 41 U/L (15-37) H 08/29/17 15:00 ALT 26 U/L (12-78) 08/29/17 15:00 Alkaline Phosphatase 377 U/L (45-117) H 08/29/17 15:00 Total Protein 7.2 g/dl (6.4-8.2) 08/29/17 15:00 Albumin 2.7 g/dl (3.4-5.0) L 08/29/17 15:00 Current Medications Acetaminophen (Tylenol -) 650 mg PO Q6H PRN PRN Reason: FEVER Pantoprazole Sodium 160 mg/ (Dextrose) 290 mls @ 14.5 mls/hr IVPB Q20H ONE Stop: 08/30/17 11:59 Last Admin: 08/29/17 16:18 Dose: 14.5 mls/hr Octreotide Acetate 1,200 mcg/ (Sodium Chloride) 500 mls @ 20.83 mls/hr IVPB ASDIR KARL PRN Reason: 50 MCG/HR Last Admin: 08/29/17 17:13 Dose: 20.83 mls/hr Levothyroxine Sodium (Synthroid -) 50 mcg PO DAILY@0700 KARL Multivitamins/Minerals/Vitamin C (Tab-A-Vit -) 1 tab PO DAILY KARL Vital Signs Period Temp Pulse Resp BP Sys/Benavides Pulse Ox Last 24 Hr 97.9 F-98.5 F 62-84 14-18 109-141/48-64 100-100 Imaging - Results Ultrasound: Report Reviewed Problem List - Problems (1) GERD (gastroesophageal reflux disease) Code(s): K21.9 - GASTRO-ESOPHAGEAL REFLUX DISEASE WITHOUT ESOPHAGITIS (2) GIB (gastrointestinal bleeding) Code(s): K92.2 - GASTROINTESTINAL HEMORRHAGE, UNSPECIFIED Qualifiers: GI bleed type/associated pathology: melena Qualified Code(s): K92.1 - Melena (3) SHARITA (acute kidney injury) Code(s): N17.9 - ACUTE KIDNEY FAILURE, UNSPECIFIED (4) Acute blood loss anemia Code(s): D62 - ACUTE POSTHEMORRHAGIC ANEMIA (5) Anemia Code(s): D64.9 - ANEMIA, UNSPECIFIED Qualifiers: Anemia type: unspecified type Qualified Code(s): D64.9 - Anemia, unspecified (6) Barretts esophagus Code(s): K22.70 - SEXTON'S ESOPHAGUS WITHOUT DYSPLASIA (7) Cirrhosis Code(s): K74.60 - UNSPECIFIED CIRRHOSIS OF LIVER (8) Colon neoplasm Code(s): D49.0 - NEOPLASM OF UNSPECIFIED BEHAVIOR OF DIGESTIVE SYSTEM (9) Esophagitis Code(s): K20.9 - ESOPHAGITIS, UNSPECIFIED Assessment/Plan 77yow with PMHx of colon cancer s/p rt hemicolectmy, cirrhosis, Sexton's esophagus, s/p endoscopy with clipping of bleeding polyp to distal esophagus who presents to ED with melena and acute anemia. Started on PPI and octreotide drips. Being followed by GI. She is hemodynamically stable. Plan: -GI consulted -Maintain large bore mojgan IV -continue PPI and octreotide drips -Serial CBC and coags -Transfuse for Hgb <7 -NPO for now -Advance diet as per GI -DVT proph with SCD Pebbles L[place], BETHEL CC time 35mins
[2017-08-29] MEDS ORDERED: VASOPRESSIN 20 UNITS/ML VIAL IV ONE (21:46)
[2017-08-29] MEDS ORDERED: NOREPINEPHRINE BITARTRATE 4 MG/4 ML ML IV ONE (21:56)
[2017-08-29 23:16] LABS: BASO % 0.7 % (0-2.0); EOS % 4.8 % (0-4.5); HEMATOCRIT 24.4 % (32.4-45.2); HEMOGLOBIN 8.2 GM/dL (10.7-15.3); LYMPH % 15.9 % (8-40); MCH 29.9 pg (25.7-33.7); MCHC 33.5 g/dl (32.0-36.0); MEAN CELL VOLUME 89.2 fl (80-96); MEAN PLT VOLUME 8.1 fl (7.5-11.1); MONO % 11.9 % (3.8-10.2); NEUT % 66.7 % (42.8-82.8); PLATELET COUNT 130 K/MM3 (134-434); RBC 2.73 M/mm3 (3.60-5.2); WHITE BLOOD COUNT 4.3 K/mm3 (4.0-10.0)
[2017-08-30 02:33] LABS: URINE APPEARANCE CLOUDY; URINE BILIRUBIN NEGATIVE (NEGATIVE); URINE BLOOD 1+ (NEGATIVE); URINE COLOR YELLOW; URINE GLUCOSE (UA) NEGATIVE (NEGATIVE); URINE KETONE NEGATIVE (NEGATIVE); URINE NITRITE NEGATIVE (NEGATIVE); URINE PROTEIN NEGATIVE (NEGATIVE); URINE UROBILINOGEN NEGATIVE mg/dL (0.2-1.0)
[2017-08-30 02:35] LABS: URINE LEUK ESTERASE 3+ (NEGATIVE)
[2017-08-30 02:38] LABS: EPI CELLS FEW /HPF (FEW); URINE BACTERIA MANY /hpf (NONE SEEN); URINE HYALINE CAST 2 /lpf; URINE MUCUS RARE
[2017-08-30] MEDS: LEVOTHYROXINE NA 50 MCG TABLET (FP) PO SCH (06:08)
[2017-08-30 06:30] LABS: BASO % 0.8 % (0-2.0); EOS % 5.1 % (0-4.5); HEMATOCRIT 24.4 % (32.4-45.2); HEMOGLOBIN 8.3 GM/dL (10.7-15.3); LYMPH % 11.2 % (8-40); MCH 30.3 pg (25.7-33.7); MCHC 33.9 g/dl (32.0-36.0); MEAN CELL VOLUME 89.4 fl (80-96); MEAN PLT VOLUME 8.9 fl (7.5-11.1); MONO % 11.7 % (3.8-10.2); NEUT % 71.2 % (42.8-82.8); PLATELET COUNT 136 K/MM3 (134-434); RBC 2.73 M/mm3 (3.60-5.2); RDW 15.8 % (11.6-15.6); WHITE BLOOD COUNT 4.8 K/mm3 (4.0-10.0)
[2017-08-30 06:57] LABS: CHLORIDE 107 mmol/L (98-107); POTASSIUM 4.2 mmol/L (3.5-5.1); SODIUM 140 mmol/L (136-145)
[2017-08-30 07:08] LABS: ALBUMIN 2.6 g/dl (3.4-5.0); ALK PHOS 316 U/L (45-117); ANION GAP 8 (8-16); BILIRUBIN,TOTAL 0.6 mg/dL (0.2-1.0); BLOOD UREA NITROGEN 38 mg/dL (7-18); CALCIUM 8.4 mg/dL (8.5-10.1); CO2 25 mmol/L (21-32); CREATININE 1.4 mg/dL (0.55-1.02); PHOSPHOROUS 3.9 mg/dL (2.5-4.9); SGOT/AST 41 U/L (15-37); SGPT/ALT 23 U/L (12-78); TOT PROT 6.7 g/dl (6.4-8.2)
[2017-08-30 07:18] LABS: GLUCOSE,RANDOM 102 mg/dL (74-106)
--- NOTE | 2017-08-30 09:33 | PN ---
Progress Note, Physician Chief Complaint: in ICU Hg stable no bleed so far; OOB to chair consults and tests appreciated and d/w pt and daughter at bedside UA loaded WBC, urinary frequency; UCX pending; IV ceftriaxone for now pt had abdominal wall cellulitis couple months ago had po ATB per ID at [place] then had diarrhea which resolved when ATB completed; will f/u closely here - Current Medication List Current Medications: Active Medications Acetaminophen (Tylenol -) 650 mg PO Q6H PRN PRN Reason: FEVER Pantoprazole Sodium 160 mg/ (Dextrose) 290 mls @ 14.5 mls/hr IVPB Q20H ONE Stop: 08/30/17 11:59 Last Admin: 08/29/17 16:18 Dose: 14.5 mls/hr Octreotide Acetate 1,200 mcg/ (Sodium Chloride) 500 mls @ 20.83 mls/hr IVPB ASDIR KARL PRN Reason: 50 MCG/HR Last Admin: 08/29/17 17:13 Dose: 20.83 mls/hr Ceftriaxone Sodium 1 gm/ (Dextrose) 50 mls @ 100 mls/hr IVPB DAILY KARL Levothyroxine Sodium (Synthroid -) 50 mcg PO DAILY@0700 KARL Last Admin: 08/30/17 06:08 Dose: Not Given Multivitamins/Minerals/Vitamin C (Tab-A-Vit -) 1 tab PO DAILY KARL - Objective Vital Signs: Vital Signs Temperature 98.2 F 08/30/17 06:00 Pulse Rate 65 08/30/17 08:00 Respiratory Rate 16 08/30/17 08:00 Blood Pressure 126/55 08/30/17 08:00 O2 Sat by Pulse Oximetry (%) 100 08/29/17 21:00 Constitutional: Yes: No Distress, Calm Eyes: Yes: Conjunctiva Clear HENT: Yes: Atraumatic Neck: Yes: Supple Cardiovascular: Yes: Regular Rate and Rhythm Respiratory: Yes: CTA Bilaterally Gastrointestinal: Yes: Soft. No: Distention, Tenderness Genitourinary: No: CVA Tenderness - Left, CVA Tenderness - Right, Hematuria Musculoskeletal: No: Joint Stiffness, Joint Swelling Extremities: Yes: Other (TEDs to legs; had SCDs to legs at night). No: Calf Tenderness, Cold, Cool, Cyanosis Edema: No Integumentary: No: Pressure Ulcer, Rash, Skin Tear, Venous Stasis Changes Neurological: Yes: WNL, Alert, Oriented ...Motor Strength: WNL Psychiatric: Yes: WNL, Alert, Oriented. No: Agitated, Suicidal Ideation Labs: CBC, BMP 08/30/17 06:10 08/30/17 06:10 INR, PTT INR 1.08 (0.82-1.09) 08/29/17 15:00 - ....Imaging Other: Report Reviewed Assessment/Plan 77-year-old female, history of colon cancer status post resection, cirrhosis, Whitfield's esophagus, status post endoscopy with clipping of bleeding site to distal esophagus [address] Willard, with hemoglobin of 10 day 4 days ago , here w/ 1 episode of black stool this a.m. States stool was loose. Hg 8 and + melena admitted to ICU GI f/u NPO IV octreotide IV PPI serial CBC might need blood transfusions if active bleeding will need emergent EGD also d/w pt and son & daughter: IV ceftriaxone for UTI, check UCX; to let me know if diarrhea develops gastric PFX, PPI falls PFX pt advised do not get OOB alone, call for help if needs OOB DVT PFX with TEDs and SCDs, can not use sq heparin b/o GI bleed; pt at risk for DVT/PE given immobility and ho cancer, hypercoag state, pt and family aware prognosis guarded t time 40 min
[2017-08-30] MEDS ORDERED: CEFTRIAXONE 1 G/50 ML PREMIX 50 ML IVPB SCH (10:00)
--- NOTE | 2017-08-30 10:17 | PN ---
Progress Note (short form) - Note Progress Note: PULM/CCM Pt seen & examined in the ICU. Pt is CA+OX3, no melena O/N, no Abd Pain. ACTIVE MEDS Acetaminophen (Tylenol -) 650 mg PO Q6H PRN PRN Reason: FEVER CEFTRIAXONE 1 G/50 ML PREMIX (Ceftriaxone 1 Gm-D5w Bag) 50 mls @ 100 mls/hr IVPB DAILY [facility] Last Admin: 08/30/17 11:45 Dose: 100 mls/hr Pantoprazole Sodium 160 mg/ (Dextrose) 290 mls @ 14.5 mls/hr IVPB Q20H [facility] Last Admin: 08/30/17 14:30 Dose: 14.5 mls/hr Octreotide Acetate 1,200 mcg/ (Sodium Chloride) 500 mls @ 20.83 mls/hr IVPB ASDIR [facility] PRN Reason: 50 MCG/HR Last Admin: 08/30/17 18:52 Dose: 20.83 mls/hr Levothyroxine Sodium (Synthroid -) 50 mcg PO DAILY@0700 [facility] Last Admin: 08/30/17 06:08 Dose: Not Given Multivitamins/Minerals/Vitamin C (Tab-A-Vit -) 1 tab PO DAILY [facility] Last Admin: 08/30/17 12:27 Dose: Not Given V/S Period Temp Pulse Resp BP Sys/Benavides Pulse Ox Last 24 Hr 98.0 F-98.5 F 59-70 07-21 120-161/50-68 100-100 I'S & O's 08/27/17 08/28/17 08/29/17 08/30/17 23:59 23:59 23:59 23:59 Intake Total 1121.2 Balance 1121.2 Weight 58.649 kg 58.649 kg CBC, BMP 08/30/17 19:20 08/30/17 06:10 RECENT STUDIES TO NOTE: CXR 08/29: The heart size is within normal limits. The lung levine are free of pulmonary infiltrates or pleural effusions. There is tortuosity and calcification of the thoracic aorta and degenerative changes of the thoracic spine. IMPRESSION: No acute disease. ASSESS: This is a 77 y/o woman w/ a PMHx/o colon CA s/p R hemicolectmy, cirrhosis, Whitfield's esophagus, s/p endoscopy w/ clipping of bleeding polyp to distal esophagus on 08/25 who re-presents now (08/29) w/ asymptomatic maroon colored and black loose stool. PLAN: -Maintain Large Bore IVs X 2 -Maintain active T & S -Continue PPI drip -Wean Octreotide -Clear liquids -Serial CBCs -Monitor LA -Normal transfusion thresholds -EGD for persistent bleeding -SCDs DGL, ACNP-BC [facility] ICU PULM/CCM 4405 Critical Care Total Critical Care Time (in minutes): 39 Critical Care Statement: The care of this patient involved high complexity decision making to prevent further life threatening deterioration of the patient 's condition and/or to evaluate & treat vital organ system(s) failure or risk of failure.
--- NOTE | 2017-08-30 12:19 | EKG ---
Test Reason : Blood Pressure : / mmHG Vent. Rate : 071 BPM Atrial Rate : 071 BPM P-R Int : 150 ms QRS Dur : 076 ms QT Int : 420 ms P-R-T Axes : 050 -27 038 degrees QTc Int : 456 ms NORMAL SINUS RHYTHM POSSIBLE LEFT ATRIAL ENLARGEMENT CANNOT RULE OUT ANTERIOR INFARCT (CITED ON OR BEFORE 17-MAR-2017) ABNORMAL ECG WHEN COMPARED WITH ECG OF 02-JUN-2017 12:21, NO SIGNIFICANT CHANGE WAS FOUND Confirmed by MD MARKUS, KATI ([id number]) on 08/30/2017 12:19:17 PM Referred By: Confirmed By:KATI APARICIO MD
[2017-08-30] MEDS: MULTIVITAMINS (DAILY MVI) TABLET (FP) PO SCH (12:27)
--- NOTE | 2017-08-30 13:38 | PN ---
GI Progress Note Subjective: GI NOte: No bloody BM overnight. NO pain or vomiting. Thirsty. - Objective Vital Signs: Vital Signs Temperature 98.3 F 08/30/17 10:00 Pulse Rate 66 08/30/17 10:00 Respiratory Rate 16 08/30/17 12:00 Blood Pressure 161/68 08/30/17 11:26 O2 Sat by Pulse Oximetry (%) 100 08/30/17 12:00 Laboratory Tests 08/29/17 08/29/17 08/29/17 15:00 15:00 15:00 Hgb 8.5 L D Hct 25.5 L D Plt Count 182 INR 1.08 BUN 40 H Creatinine 1.3 H Total Bilirubin 0.4 D AST 41 H ALT 26 Alkaline Phosphatase 377 H Albumin 2.7 L 08/29/17 08/29/17 08/30/17 17:00 23:00 06:10 Hgb 7.9 L 8.2 L 8.3 L Hct Plt Count 136 INR BUN Creatinine Total Bilirubin AST ALT Alkaline Phosphatase Albumin 08/30/17 06:10 Hgb Hct Plt Count INR BUN 38 H Creatinine 1.4 H Total Bilirubin 0.6 D AST 41 H ALT 23 Alkaline Phosphatase 316 H Albumin Constitutional: No Distress Eyes: Yes: Conjunctiva Clear ...Auscultate: Yes: Normoactive Bowel Sounds ...Palpate: Yes: Soft, Other (nontender) Labs: CBC, BMP 08/30/17 06:10 08/30/17 06:10 INR, PTT INR 1.08 (0.82-1.09) 08/29/17 15:00 Assessment/Plan Decrease Octreotide to 25mcg/hr Continue PPI drip Clear liquids Serial CBCs Transfuse as needed Will reserve repeat EGD for persistent bleeding. Problem List - Problems (1) GERD (gastroesophageal reflux disease) Code(s): K21.9 - GASTRO-ESOPHAGEAL REFLUX DISEASE WITHOUT ESOPHAGITIS Qualifiers: Esophagitis presence: with esophagitis Qualified Code(s): K21.0 - Gastro- esophageal reflux disease with esophagitis (2) Cholelithiasis Code(s): K80.20 - CALCULUS OF GALLBLADDER W/O CHOLECYSTITIS W/O OBSTRUCTION (3) Acute blood loss anemia Assessment/Plan: It appears that the bleeding from the distal esophageal biopsy sites has resolved. Will decrease octreotide rate and continue PPI drip. Caleb allow clear liquids. Given gallstones will check GGT as the alkaline phosphatase is elevated. [place] emergent endoscopic intervention for life threatening bleeding. Code(s): D62 - ACUTE POSTHEMORRHAGIC ANEMIA (4) Barretts esophagus Code(s): K22.70 - SEXTON'S ESOPHAGUS WITHOUT DYSPLASIA (5) Cirrhosis Code(s): K74.60 - UNSPECIFIED CIRRHOSIS OF LIVER (6) Colon neoplasm Code(s): D49.0 - NEOPLASM OF UNSPECIFIED BEHAVIOR OF DIGESTIVE SYSTEM
[2017-08-30] MEDS ORDERED: SODIUM CHLORIDE IVPB SCH (13:39)
[2017-08-30] MEDS ORDERED: OCTREOTIDE ACETATE IVPB SCH (13:39)
[2017-08-30] MEDS ORDERED: PANTOPRAZOLE SODIUM 80 MG in SODIUM CHLORIDE 100 ML IVPB SCH (13:45)
[2017-08-30] MEDS: PANTOPRAZOLE SODIUM 160 MG in DEXTROSE 5%-WATER - 290 ML IVPB SCH (14:30)
[2017-08-30] MEDS: SODIUM CHLORIDE IVPB SCH (18:52)
[2017-08-30] MEDS: OCTREOTIDE ACETATE IVPB SCH (18:52)
[2017-08-30 19:33] LABS: HEMATOCRIT 27.4 % (32.4-45.2); HEMOGLOBIN 9.1 GM/dL (10.7-15.3); MCH 29.7 pg (25.7-33.7); MCHC 33.2 g/dl (32.0-36.0); MEAN CELL VOLUME 89.4 fl (80-96); MEAN PLT VOLUME 8.2 fl (7.5-11.1); PLATELET COUNT 153 K/MM3 (134-434); RBC 3.06 M/mm3 (3.60-5.2); RDW 15.9 % (11.6-15.6); WHITE BLOOD COUNT 5.6 K/mm3 (4.0-10.0)
[2017-08-31] MEDS: LEVOTHYROXINE NA 50 MCG TABLET (FP) PO SCH (06:11)
[2017-08-31 06:42] LABS: HEMATOCRIT 26.4 % (32.4-45.2); HEMOGLOBIN 8.9 GM/dL (10.7-15.3); LYMPH % 9.7 % (8-40); MCH 30.2 pg (25.7-33.7); MCHC 33.8 g/dl (32.0-36.0); MEAN CELL VOLUME 89.3 fl (80-96); MEAN PLT VOLUME 8.8 fl (7.5-11.1); MONO % 12.1 % (3.8-10.2); NEUT % 71.2 % (42.8-82.8); PLATELET COUNT 157 K/MM3 (134-434); RBC 2.96 M/mm3 (3.60-5.2); RDW 15.6 % (11.6-15.6); WHITE BLOOD COUNT 5.3 K/mm3 (4.0-10.0)
[2017-08-31 07:08] LABS: ALBUMIN 2.7 g/dl (3.4-5.0); BILIRUBIN,TOTAL 0.5 mg/dL (0.2-1.0); TOT PROT 7.1 g/dl (6.4-8.2)
[2017-08-31 07:10] LABS: ALBUMIN 2.7 g/dl (3.4-5.0); ANION GAP 10 (8-16); BLOOD UREA NITROGEN 34 mg/dL (7-18); CALCIUM 8.6 mg/dL (8.5-10.1); CHLORIDE 104 mmol/L (98-107); CO2 25 mmol/L (21-32); GAMMA GLUTAMYL TRANSPEPTIDASE 149 U/L (5-85); POTASSIUM 3.9 mmol/L (3.5-5.1); SODIUM 139 mmol/L (136-145)
[2017-08-31 07:12] LABS: ALK PHOS 303 U/L (45-117); BILIRUBIN,TOTAL 0.5 mg/dL (0.2-1.0); CREATININE 1.5 mg/dL (0.55-1.02); SGOT/AST 39 U/L (15-37); SGPT/ALT 23 U/L (12-78); TOT PROT 7.2 g/dl (6.4-8.2)
[2017-08-31 07:20] LABS: BILIRUBIN,DIRECT 0.2 mg/dL (0.0-0.2)
[2017-08-31 07:21] LABS: GLUCOSE,RANDOM 117 mg/dL (74-106)
--- NOTE | 2017-08-31 10:16 | PN ---
GI Progress Note Subjective: GI NOte: Had maroon colored BMs x 2 last night after clear liquids but Hb has not fallen. Hopefully this reflects passage of old blood. - Objective Vital Signs: Vital Signs Temperature 98.2 F 08/31/17 06:00 Pulse Rate 64 08/31/17 08:00 Respiratory Rate 15 08/31/17 08:00 Blood Pressure 143/60 08/31/17 08:00 O2 Sat by Pulse Oximetry (%) 100 08/30/17 21:00 Laboratory Tests 08/29/17 08/29/17 08/29/17 15:00 15:00 17:00 Hgb 8.5 L D 7.9 L BUN 40 H Creatinine 1.3 H 08/29/17 08/30/17 08/30/17 23:00 06:10 19:20 Hgb 8.2 L 8.3 L 9.1 L BUN Creatinine 08/31/17 08/31/17 06:15 06:15 Hgb 8.9 L BUN 34 H Creatinine 1.5 H Constitutional: Calm ...Auscultate: Yes: Normoactive Bowel Sounds ...Palpate: Yes: Soft, Other (nontender) Labs: CBC, BMP 08/31/17 06:15 08/31/17 06:15 INR, PTT INR 1.08 (0.82-1.09) 08/29/17 15:00 Problem List - Problems (1) GERD (gastroesophageal reflux disease) Code(s): K21.9 - GASTRO-ESOPHAGEAL REFLUX DISEASE WITHOUT ESOPHAGITIS Qualifiers: Esophagitis presence: with esophagitis Qualified Code(s): K21.0 - Gastro- esophageal reflux disease with esophagitis (2) Cholelithiasis Code(s): K80.20 - CALCULUS OF GALLBLADDER W/O CHOLECYSTITIS W/O OBSTRUCTION (3) Acute blood loss anemia Assessment/Plan: I believe that the bleeding from the distal esophageal biopsy sites is resolving. Will allow clear liquids but will not decrease octreotide yet. [place] emergent endoscopic intervention for life threatening bleeding. Code(s): D62 - ACUTE POSTHEMORRHAGIC ANEMIA (4) Barretts esophagus Code(s): K22.70 - SEXTON'S ESOPHAGUS WITHOUT DYSPLASIA (5) Cirrhosis Code(s): K74.60 - UNSPECIFIED CIRRHOSIS OF LIVER (6) Colon neoplasm Code(s): D49.0 - NEOPLASM OF UNSPECIFIED BEHAVIOR OF DIGESTIVE SYSTEM
--- NOTE | 2017-08-31 10:23 | PN ---
Progress Note, Physician Chief Complaint: in bed NAD VSShad few melenic dark blood stools last night but HG 9, stable - ? old blood? also has some diarrhea; will add bacid po; will ask ID for further ATB tx; UCx Strep d/w pt and daughter at bedside; - Current Medication List Current Medications: Active Medications Acetaminophen (Tylenol -) 650 mg PO Q6H PRN PRN Reason: FEVER CEFTRIAXONE 1 G/50 ML PREMIX (Ceftriaxone 1 Gm-D5w Bag) 50 mls @ 100 mls/hr IVPB DAILY [facility] Last Admin: 08/30/17 11:45 Dose: 100 mls/hr Pantoprazole Sodium 160 mg/ (Dextrose) 290 mls @ 14.5 mls/hr IVPB Q20H [facility] Last Admin: 08/30/17 14:30 Dose: 14.5 mls/hr Octreotide Acetate 1,200 mcg/ (Sodium Chloride) 500 mls @ 20.83 mls/hr IVPB ASDIR [facility] PRN Reason: 50 MCG/HR Last Admin: 08/30/17 18:52 Dose: 20.83 mls/hr Levothyroxine Sodium (Synthroid -) 50 mcg PO DAILY@0700 [facility] Last Admin: 08/31/17 06:11 Dose: Not Given Multivitamins/Minerals/Vitamin C (Tab-A-Vit -) 1 tab PO DAILY [facility] Last Admin: 08/30/17 12:27 Dose: Not Given - Objective Vital Signs: Vital Signs Temperature 98.6 F 08/31/17 10:00 Pulse Rate 66 08/31/17 10:00 Respiratory Rate 15 08/31/17 10:00 Blood Pressure 132/70 08/31/17 10:00 O2 Sat by Pulse Oximetry (%) 100 08/30/17 21:00 Constitutional: Yes: No Distress, Calm Eyes: Yes: Conjunctiva Clear HENT: Yes: Atraumatic Neck: Yes: Supple Cardiovascular: Yes: Regular Rate and Rhythm Respiratory: Yes: CTA Bilaterally Gastrointestinal: Yes: Soft. No: Distention Genitourinary: No: CVA Tenderness - Left, CVA Tenderness - Right, Hematuria Musculoskeletal: No: Joint Stiffness, Joint Swelling Extremities: No: Cold, Cool, Cyanosis Edema: No Integumentary: No: Rash, Venous Stasis Changes Neurological: Yes: WNL, Alert, Oriented ...Motor Strength: WNL Psychiatric: Yes: WNL, Alert, Oriented. No: Agitated, Suicidal Ideation Labs: CBC, BMP 08/31/17 06:15 08/31/17 06:15 INR, PTT INR 1.08 (0.82-1.09) 08/29/17 15:00 - ....Imaging Other: Report Reviewed Assessment/Plan 77-year-old female, history of colon cancer status post resection, cirrhosis, Whitfield's esophagus, status post endoscopy with clipping of bleeding site to distal esophagus [address] Willard, with hemoglobin of 10 day 4 days ago , here w/ 1 episode of black stool this a.m. States stool was loose. Hg 9 now without any blood products but recurrent melena admitted to ICU GI f/u NPO IV octreotide IV PPI serial CBC might need blood transfusions if active bleeding will need emergent EGD also d/w pt and daughter: IV ceftriaxone for UTI, UCX STrep; diarrhea - po bacid, check stools for CDiff ID eval gastric PFX, PPI falls PFX pt advised do not get OOB alone, call for help if needs OOB DVT PFX with TEDs and SCDs, can not use sq heparin b/o GI bleed; pt at risk for DVT/PE given immobility and ho cancer, hypercoag state, pt and family aware prognosis guarded t time 40 min
--- NOTE | 2017-08-31 13:04 | PN ---
Progress Note (short form) - Note Progress Note: ID Consult dictated GI bleed UTI Grp B strep Antibiotic - induced diarrhea Amoxicillin suspension 250mg po tid x 7d
--- NOTE | 2017-08-31 14:41 | CONS ---
DATE OF CONSULTATION: DATE OF DICTATION: 08/31/2017 The patient is a 77-year-old female who was evaluated for urinary tract infection and Whitfield's esophagus. She had undergone EGD on August 25, 2017, with clipping of distal esophageal vessels. She subsequently developed melenic stool and anemia. She was admitted to the intensive care unit. In the intensive care unit, the patient complained of urinary frequency. Urinalysis showed many white cells. Urine culture is now growing a group B streptococcus. She was empirically treated with ceftriaxone, and patient reports developing diarrhea after taking ceftriaxone. The patient had had a similar episode last year, when she was being treated for cellulitis. She developed profuse diarrhea while on ceftriaxone. She denies any dysuria or hematuria at the present time. No high-grade fever or shaking chills. Past medical history positive for colon cancer, status post right hemicolectomy, hypothyroidism, cirrhosis, chronic liver disease, Whitfield's esophagus. PAST SURGICAL HISTORY: Status post section. No known allergies. MEDICATIONS: Synthroid and Protonix. SOCIAL HISTORY: Resides at home with family members. Former smoker. Nondrinker. SYSTEMS REVIEW: Neurologic: No loss of consciousness, seizure activity, or focal weakness. Cardiac: Negative chest pain or palpitations. Respiratory: Negative cough or sputum production. Gastrointestinal: As per HPI. Genitourinary: As per HPI. LABORATORY DATA: White count 5.3, hematocrit 26.4, platelet count 157. BUN 34, creatinine 1.5, total bilirubin 0.5, alkaline phosphatase 303, AST 39. Urinalysis: 561 white cells. Urine culture growing group B streptococcus. PHYSICAL EXAMINATION: General: She is awake and alert, not acutely toxic appearing. Vital Signs: Temperature 98.6. Blood pressure 140/61. Pulse 66, regular. Respirations 15 per minute. Eyes: Sclerae anicteric. Heart Sounds: S1, S2. Lungs: Clear bilaterally. No rhonchi, rales, or wheezes. Abdomen: Soft. No tenderness elicited. Extremities: Negative for edema. IMPRESSION: 1. Gastrointestinal bleed. 2. Group B streptococcus urinary tract infection. 3. Antibiotic-induced diarrhea. Will substitute amoxicillin 250 mg p.o. 3 times a day for 7 days for treatment of urinary tract infection. Will give suspension in light of recent esophageal bleed. Case discussed with patient's daughter present at the time of examination. Thank you for the kind referral. LATRICIA MUNOZ M.D. [id number]
[2017-08-31] MEDS: AMOXICILLIN ORAL SUSPENSION - 250 MG/5 ML PO SCH ×2 (16:35→22:41)
[2017-08-31] MEDS: LACTOBACILLUS ACIDOPHILUS 1 EACH TAB (FP) PO SCH (16:35)
--- NOTE | 2017-08-31 17:19 | PN ---
Progress Note (short form) - Note Progress Note: PULM/CCM Pt seen & examined in the ICU. Pt is CA+OX3, few melanic dark stools O/N, Hgb stable 8.9 - 9.0. Active Medications Acetaminophen (Tylenol -) 650 mg PO Q6H PRN PRN Reason: FEVER Amoxicillin (Amoxicillin Suspension -) 250 mg PO TID [facility] Last Admin: 08/31/17 16:35 Dose: 250 mg Pantoprazole Sodium 160 mg/ (Dextrose) 290 mls @ 14.5 mls/hr IVPB Q20H [facility] Last Admin: 08/30/17 14:30 Dose: 14.5 mls/hr Octreotide Acetate 1,200 mcg/ (Sodium Chloride) 500 mls @ 20.83 mls/hr IVPB ASDIR [facility] PRN Reason: 50 MCG/HR Last Admin: 08/30/17 18:52 Dose: 20.83 mls/hr Lactobacillus Acidophilus (Bacid -) 1 tab PO DAILY [facility] Last Admin: 08/31/17 16:35 Dose: 1 tab Levothyroxine Sodium (Synthroid -) 50 mcg PO DAILY@0700 [facility] Last Admin: 08/31/17 06:11 Dose: Not Given Multivitamins/Minerals/Vitamin C (Tab-A-Vit -) 1 tab PO DAILY [facility] Last Admin: 08/30/17 12:27 Dose: Not Given Vital Signs Period Temp Pulse Resp BP Sys/Benavides Pulse Ox Last 24 Hr 98.2 F-98.7 F 60-68 12-17 132-165/51-70 100 Initial Vital Signs Temp Pulse Resp BP Pulse Ox 97.9 F 84 16 123/60 100 08/29/17 11:39 08/29/17 11:39 08/29/17 11:39 08/29/17 11:39 08/29/17 11:39 GEN: 77 y/o woman, C & A, OOB --> Chair, NAD HEENT: PERRL, an-icteric, Dry MMM PULM: CTAB CV: nml S1 S2, RR ABD: + VBS, S/S N/T N/D X4Q EXT: + Pulses, WWPX4, (-) edema CBC, BMP 08/31/17 06:15 08/31/17 06:15 Microbiology 08/29/17 21:00 Urine - Urine Clean Catch Urine Culture - Preliminary Strep Agalactiae Group B RECENT STUDIES TO NOTE: CXR 08/29: The heart size is within normal limits. The lung levine are free of pulmonary infiltrates or pleural effusions. There is tortuosity and calcification of the thoracic aorta and degenerative changes of the thoracic spine. IMPRESSION: No acute disease. ASSESS: This is a 77 y/o woman w/ a PMHx/o colon CA s/p R hemicolectmy, cirrhosis, Whitfield's esophagus, s/p endoscopy w/ clipping of bleeding polyp to distal esophagus on 08/25 who re-presents now (08/29) w/ asymptomatic maroon colored and black loose stool c/b a Grp B strep UTI. PLAN: -Maintain Large Bore IVs X 2 -Maintain active T & S -Continue PPI drip -Cont Octreotide -Clear liquids -Serial CBCs -Monitor LA -Normal transfusion thresholds -EGD for persistent bleeding -GI -Amoxicillin suspension 250mg po tid x 7d -ID -SCDs DGL, ACNP-BC [facility] ICU PULM/CCM 4431 Critical Care Total Critical Care Time (in minutes): 39 Critical Care Statement: The care of this patient involved high complexity decision making to prevent further life threatening deterioration of the patient 's condition and/or to evaluate & treat vital organ system(s) failure or risk of failure.
[2017-08-31] MEDS: OCTREOTIDE ACETATE IVPB SCH (19:00)
[2017-08-31] MEDS: SODIUM CHLORIDE IVPB SCH (19:00)
[2017-09-01 06:08] LABS: EOS % 6.6 % (0-4.5); HEMATOCRIT 26.1 % (32.4-45.2); HEMOGLOBIN 8.8 GM/dL (10.7-15.3); LYMPH % 9.1 % (8-40); MCH 30.1 pg (25.7-33.7); MCHC 33.7 g/dl (32.0-36.0); MEAN CELL VOLUME 89.1 fl (80-96); MEAN PLT VOLUME 7.9 fl (7.5-11.1); NEUT % 70.3 % (42.8-82.8); PLATELET COUNT 165 K/MM3 (134-434); RBC 2.92 M/mm3 (3.60-5.2); RDW 15.5 % (11.6-15.6); WHITE BLOOD COUNT 5.1 K/mm3 (4.0-10.0)
[2017-09-01] MEDS: LEVOTHYROXINE NA 50 MCG TABLET (FP) PO SCH (06:40)
[2017-09-01] MEDS: AMOXICILLIN ORAL SUSPENSION - 250 MG/5 ML PO SCH ×3 (06:41→20:59)
[2017-09-01] MEDS: PANTOPRAZOLE SODIUM 160 MG in DEXTROSE 5%-WATER - 290 ML IVPB SCH (06:42)
[2017-09-01 06:59] LABS: ANION GAP 10 (8-16); BLOOD UREA NITROGEN 27 mg/dL (7-18); CALCIUM 8.3 mg/dL (8.5-10.1); CHLORIDE 105 mmol/L (98-107); CO2 24 mmol/L (21-32); CREATININE 1.5 mg/dL (0.55-1.02); POTASSIUM 3.6 mmol/L (3.5-5.1); SODIUM 139 mmol/L (136-145)
[2017-09-01 07:01] LABS: GLUCOSE,RANDOM 120 mg/dL (74-106)
--- NOTE | 2017-09-01 07:43 | PN ---
Progress Note (short form) - Note Progress Note: ID Oral antibiotic No urinary complaints Selected Entries 09/01/17 06:00 Temperature 98.4 F Pulse Rate 53 L Respiratory 14 Rate Blood Pressure 136/61 Microbiology 08/29/17 21:00 Urine - Urine Clean Catch Urine Culture - Preliminary Strep Agalactiae Group B Laboratory Tests 08/29/17 09/01/17 21:03 05:40 WBC 5.1 Hgb 8.8 L Hct 26.1 L Plt Count 165 Urine Urobilinogen Negative Urine WBC (Auto) 561 Urine RBC (Auto) 23 Urine Bacteria Many Assessment Group B strep urinary infection Plan Antibiotic as ordered Kindly recall us as needed Wilton FIGUEROA
[2017-09-01] MEDS: LACTOBACILLUS ACIDOPHILUS 1 EACH TAB (FP) PO SCH (09:28)
[2017-09-01] MEDS: MULTIVITAMINS (DAILY MVI) TABLET (FP) PO SCH (09:28)
--- NOTE | 2017-09-01 09:37 | PN ---
Physical Exam: SUBJECTIVE: Patient seen and examined The patient is a 77 year old female with a history of colon cancer s/p hemicolectomy, cirrhosis, mckeon's esophagus s/p endoscopic clipping of a bleeding polyp on 08/25 who is admitted to the ICU for melena, GI bleed and acute anemia. The patient denies any abdominal pain or any bowel movements since yesterday. Otherwise no acute events overnight. OBJECTIVE: Vital Signs Period Temp Pulse Resp BP Sys/Benavides Pulse Ox Last 24 Hr 98.2 F-98.6 F 53-68 12-18 130-165/55-70 100 GENERAL: The patient is awake, alert, and fully oriented, in no acute distress. HEAD: Normal with no signs of trauma. EYES: sclera anicteric, conjunctiva clear. No ptosis. ENT: oropharynx clear without exudates, moist mucous membranes. NECK: Trachea midline, full range of motion, supple. LUNGS: Breath sounds equal, clear to auscultation bilaterally, no wheezes, no crackles, no accessory muscle use. HEART: Regular rate and rhythm, S1, S2 without murmur, rub or gallop. ABDOMEN: Soft, nontender, nondistended, normoactive bowel sounds, no guarding, no rebound, no hepatosplenomegaly, no masses. EXTREMITIES: 2+ pulses, warm, well-perfused, no edema. NEUROLOGICAL: Normal speech, gait not observed. PSYCH: Normal mood, normal affect. SKIN: Warm, dry, normal turgor, no rashes or lesions noted Laboratory Results - last 24 hr 09/01/17 09/01/17 05:40 05:40 WBC 5.1 RBC 2.92 L Hgb 8.8 L Hct 26.1 L MCV 89.1 MCH 30.1 MCHC 33.7 RDW 15.5 Plt Count 165 MPV 7.9 D Neutrophils % 70.3 Lymphocytes % 9.1 Monocytes % 13.0 H Eosinophils % 6.6 H Basophils % 1.0 Sodium 139 Potassium 3.6 Chloride 105 Carbon Dioxide 24 Anion Gap 10 BUN 27 H Creatinine 1.5 H Random Glucose 120 H Calcium 8.3 L Active Medications Generic Name Dose Route Start Last Admin Trade Name Freq PRN Reason Stop Dose Admin Acetaminophen 650 mg 08/29/17 20:39 Tylenol - PO Q6H PRN FEVER Amoxicillin 250 mg 08/31/17 14:00 09/01/17 06:41 Amoxicillin Suspension - PO 250 mg TID [facility] Administration Pantoprazole Sodium 160 mg/ 290 mls @ 14.5 mls/hr 08/30/17 14:15 09/01/17 06: 42 Dextrose IVPB 14.5 mls/hr Q20H [facility] Administration Octreotide Acetate 1,200 mcg/ 500 mls @ 20.83 mls/hr 08/30/17 19:00 08/31/17 19:00 Sodium Chloride IVPB 20.83 mls/hr ASDIR [facility] Administration 50 MCG/HR Lactobacillus Acidophilus 1 tab 08/31/17 12:30 09/01/17 09:28 Bacid - PO 1 tab DAILY [facility] Administration Levothyroxine Sodium 50 mcg 08/30/17 07:00 09/01/17 06:40 Synthroid - PO 50 mcg DAILY@0700 [facility] Administration Multivitamins/Minerals/Vitamin C 1 tab 08/30/17 10:00 09/01/17 09:28 Tab-A-Vit - PO 1 tab DAILY [facility] Administration ASSESSMENT/PLAN: The patient is a 77 year old female with a history of colon cancer s/p hemicolectomy, cirrhosis, mckeon's esophagus s/p endoscopic clipping of a bleeding polyp on 08/25 who is admitted to the ICU for melena, GI bleed and acute anemia. NEURO Patient is alert and oriented x3 No issues currently. -Will continue to monitor. CV No Issues currently. -Will continue to monitor. RESP No Issues currently. -Will continue to monitor GI #GI bleed with melena The patient reports no stools over the past 1 day. She was noted to have 2 melenotic small bowel movements 1 day ago, but otherwise no acute changes. GI is following. -Continue Octreotide drip. -Continue Pantoprazole drip. -Will continue to monitor. -Appreciate GI recs. Heme #Acute Anemia The patient presented with a hgb of 7.3 which is now improved to 8.8 -Will continue to monitor h/h. -Will transfuse as needed. Renal No issues currently. -Will continue to monitor. ID No issues currently. -Will continue to monitor. MSK No issues currently FEN/GI -Replete electrolytes PRN, will monitor PPX -Pantoprazole -Mechanical SCDs DISPO: Stable for floor monitoring. Visit type - Emergency Visit Emergency Visit: No - New Patient This patient is new to me today: Yes Date on this admission: 09/01/17 - Critical Care Critical Care patient: No
--- NOTE | 2017-09-01 10:27 | PN ---
Progress Note, Physician Chief Complaint: in ICU on IV octreotide H&H stable but had some black loose stools on IV ATB for UTI, will ask ID eval on clear fluid diet tolerates OK no N/V/ abdominal pain daughter at bedside d/w GI dr Willard pt had outpt US with him which showed R abdominal mass, will check CT scan - Current Medication List Current Medications: Active Medications Acetaminophen (Tylenol -) 650 mg PO Q6H PRN PRN Reason: FEVER Amoxicillin (Amoxicillin Suspension -) 250 mg PO TID [facility] Last Admin: 09/01/17 06:41 Dose: 250 mg Pantoprazole Sodium 160 mg/ (Dextrose) 290 mls @ 14.5 mls/hr IVPB Q20H [facility] Last Admin: 09/01/17 06:42 Dose: 14.5 mls/hr Octreotide Acetate 1,200 mcg/ (Sodium Chloride) 500 mls @ 20.83 mls/hr IVPB ASDIR [facility] PRN Reason: 50 MCG/HR Last Admin: 08/31/17 19:00 Dose: 20.83 mls/hr Lactobacillus Acidophilus (Bacid -) 1 tab PO DAILY [facility] Last Admin: 09/01/17 09:28 Dose: 1 tab Levothyroxine Sodium (Synthroid -) 50 mcg PO DAILY@0700 [facility] Last Admin: 09/01/17 06:40 Dose: 50 mcg Multivitamins/Minerals/Vitamin C (Tab-A-Vit -) 1 tab PO DAILY [facility] Last Admin: 09/01/17 09:28 Dose: 1 tab - Objective Vital Signs: Vital Signs Temperature 98 F 09/01/17 10:00 Pulse Rate 68 09/01/17 10:00 Respiratory Rate 18 09/01/17 10:00 Blood Pressure 150/60 09/01/17 10:00 O2 Sat by Pulse Oximetry (%) 100 08/31/17 21:00 Constitutional: Yes: No Distress, Calm Eyes: Yes: Conjunctiva Clear HENT: Yes: Atraumatic Neck: Yes: Supple Cardiovascular: Yes: Regular Rate and Rhythm Respiratory: Yes: CTA Bilaterally Gastrointestinal: Yes: Soft. No: Distention, Tenderness Genitourinary: No: CVA Tenderness - Left, CVA Tenderness - Right Musculoskeletal: No: Joint Stiffness, Joint Swelling Extremities: No: Cold, Cool Edema: No Integumentary: No: Rash, Venous Stasis Changes Neurological: Yes: WNL, Alert, Oriented ...Motor Strength: WNL Psychiatric: Yes: WNL, Alert, Oriented. No: Agitated, Suicidal Ideation Labs: CBC, BMP 09/01/17 05:40 09/01/17 05:40 INR, PTT INR 1.08 (0.82-1.09) 08/29/17 15:00 - ....Imaging Other: Report Reviewed Assessment/Plan 77-year-old female, history of colon cancer status post resection, cirrhosis, Whitfield's esophagus, status post endoscopy with clipping of bleeding site to distal esophagus [address] Willard, with hemoglobin of 10 day 4 days ago , here w/ 1 episode of black stool this a.m. States stool was loose. Hg 9 now without any blood products but recurrent melena admitted to ICU GI f/u ? R abdominal mass/US - will check abdominal CT scan clear fluids diet IV octreotide IV PPI serial CBC might need blood transfusions if active bleeding will need emergent EGD UTI: ID eval for ATB tx diarrhea - po bacid, check stools for CDiff gastric PFX, PPI falls PFX pt advised do not get OOB alone, call for help if needs OOB DVT PFX with TEDs and SCDs, can not use sq heparin b/o GI bleed; pt at risk for DVT/PE given immobility and ho cancer, hypercoag state, pt and family aware prognosis guarded t time 40 min
--- NOTE | 2017-09-01 11:05 | PN ---
GI Progress Note Subjective: Dr. Becerra covering for Dr. Padilla No acute events No overt bleeding Overall Ms. León states feeling well No PRBC transfusion requirements - Objective Vital Signs: Vital Signs Temperature 98 F 09/01/17 10:00 Pulse Rate 68 09/01/17 10:00 Respiratory Rate 18 09/01/17 10:00 Blood Pressure 150/60 09/01/17 10:00 O2 Sat by Pulse Oximetry (%) 100 08/31/17 21:00 Constitutional: Calm Eyes: No: Sclera Icterus Cardiovascular: Yes: Regular Rate and Rhythm. No: Murmur Respiratory: Yes: CTA Bilaterally Gastrointestinal Inspection: Yes: Scars (midline vertical surgical scar), Other (protuberant lower abdomen) ...Auscultate: Yes: Normoactive Bowel Sounds ...Palpate: Yes: Soft. No: Hepatomegaly, Splenomegaly, Tenderness ...Percussion: No: Tympanitic Edema: No (No LE edema) Neurological: Yes: Alert, Oriented Labs: CBC, BMP 09/01/17 05:40 09/01/17 05:40 INR, PTT INR 1.08 (0.82-1.09) 08/29/17 15:00 Problem List - Problems (1) GIB (gastrointestinal bleeding) Assessment/Plan: Suspected UGIB s/p EGD w/ mckeon's surveillance biopsies 09/[address] Wlilard Likely post biopsy bleeding however with h/o cirrhosis being treated as if portal HTN could be playing a role such as bleeding from esophageal varices s/p biopsy. Plan: Continue clears Decreased octreotide to 25mcg/hr Continue PPI drip until tomorrow then change to 40mg once daily Monitor for active ongoing bleeding Code(s): K92.2 - GASTROINTESTINAL HEMORRHAGE, UNSPECIFIED Qualifiers: GI bleed type/associated pathology: melena Qualified Code(s): K92.1 - Melena
--- NOTE | 2017-09-01 12:49 | PN ---
Teaching Attending Note Name of Resident: Julian Banuelso ATTENDING PHYSICIAN STATEMENT I saw and evaluated the patient. I reviewed the resident's note and discussed the case with the resident. I agree with the resident's findings and plan as documented. SUBJECTIVE: Pt seen and examined in the ICU. No bleeding overnight. Denies shortness of breath, chest pain or abdominal pain. OBJECTIVE: Last Vital Signs Temp Pulse Resp BP Pulse Ox 98 F 64 18 134/80 100 09/01/17 10:00 09/01/17 12:00 09/01/17 12:00 09/01/17 12:00 08/31/17 21:00 Intake & Output 08/29/17 08/30/17 08/31/17 09/01/17 23:59 23:59 23:59 23:59 Intake Total 1121.2 1170.6 576 Balance 1121.2 1170.6 576 Weight 58.649 kg 58.649 kg 58.287 kg 57.606 kg Gen: NAD at rest Heart: RRR Lung: decreased breath sounds at the bases Abd: soft, nontender Ext: no edema CBC, BMP 09/01/17 05:40 09/01/17 05:40 Active Medications Acetaminophen (Tylenol -) 650 mg PO Q6H PRN PRN Reason: FEVER Amoxicillin (Amoxicillin Suspension -) 250 mg PO TID [facility] Last Admin: 09/01/17 06:41 Dose: 250 mg Pantoprazole Sodium 160 mg/ (Dextrose) 290 mls @ 14.5 mls/hr IVPB Q20H [facility] Last Admin: 09/01/17 06:42 Dose: 14.5 mls/hr Octreotide Acetate 1,200 mcg/ (Sodium Chloride) 500 mls @ 20.83 mls/hr IVPB ASDIR [facility] PRN Reason: 50 MCG/HR Last Admin: 08/31/17 19:00 Dose: 20.83 mls/hr Lactobacillus Acidophilus (Bacid -) 1 tab PO DAILY [facility] Last Admin: 09/01/17 09:28 Dose: 1 tab Levothyroxine Sodium (Synthroid -) 50 mcg PO DAILY@0700 [facility] Last Admin: 09/01/17 06:40 Dose: 50 mcg Multivitamins/Minerals/Vitamin C (Tab-A-Vit -) 1 tab PO DAILY [facility] Last Admin: 09/01/17 09:28 Dose: 1 tab ASSESSMENT AND PLAN: GI Bleed Liver Cirrhosis UTI h/o Colon Ca s/p R hemicolectomy Whitfield's Esophagus - monitor H/H - transfuse as needed - complete octreotide gtt - protoinx gtt per GI - clear liquids - continue antibiotics - DVT prophylaxis - can monitor on floor
[2017-09-01 14:11] LABS: HBSAG SCREEN Negative (Negative); HEP B CORE AB, TOT Negative (Negative)
[2017-09-01] MEDS ORDERED: SODIUM CHLORIDE IVPB SCH ×2 (14:28→17:30)
[2017-09-01] MEDS ORDERED: OCTREOTIDE ACETATE IVPB SCH ×2 (14:28→17:30)
[2017-09-01] MEDS ORDERED: PT OWN MED DRAWER 7, Y5N ONE (14:40)
[2017-09-01] MEDS ORDERED: OCTREOTIDE ACETATE 1,200 MCG in DEXTROSE 5%-WATER - 488 ML IVPB SCH (17:30)
[2017-09-02 06:21] LABS: BASO % 1.1 % (0-2.0); HEMATOCRIT 24.7 % (32.4-45.2); HEMOGLOBIN 8.4 GM/dL (10.7-15.3); LYMPH % 11.5 % (8-40); MCH 30.2 pg (25.7-33.7); MCHC 34.1 g/dl (32.0-36.0); MEAN CELL VOLUME 88.6 fl (80-96); MEAN PLT VOLUME 8.2 fl (7.5-11.1); MONO % 13.8 % (3.8-10.2); NEUT % 65.6 % (42.8-82.8); PLATELET COUNT 165 K/MM3 (134-434); RBC 2.79 M/mm3 (3.60-5.2); RDW 15.6 % (11.6-15.6)
[2017-09-02] MEDS: AMOXICILLIN ORAL SUSPENSION - 250 MG/5 ML PO SCH ×3 (06:28→21:37)
[2017-09-02] MEDS: PANTOPRAZOLE SODIUM 160 MG in DEXTROSE 5%-WATER - 290 ML IVPB SCH ×2 (06:31→06:32)
[2017-09-02] MEDS: LEVOTHYROXINE NA 50 MCG TABLET (FP) PO SCH (06:31)
--- NOTE | 2017-09-02 06:36 | PN ---
Progress Note, Physician Chief Complaint: feels OK no new c/o abdomen CT d/w pt and daughter: large collection R sided of abdomen - pt asymptomatic, no fever no WBC d/w surgery dr Herzog: most likely seroma collection s/p surgery; no intervention needed at this point; f/u US in 2-3 months d/w pt and daughter if she develops any pain or fever to call us or go to ER right away had some black stools but H&H stable; still on clear fluids, will d/w GI to advnace diet on PO ATB, still diarrhea - Current Medication List Current Medications: Active Medications Acetaminophen (Tylenol -) 650 mg PO Q6H PRN PRN Reason: FEVER Amoxicillin (Amoxicillin Suspension -) 250 mg PO TID [facility] Last Admin: 09/02/17 06:28 Dose: 250 mg Pantoprazole Sodium 160 mg/ (Dextrose) 290 mls @ 14.5 mls/hr IVPB Q20H [facility] Last Admin: 09/02/17 06:32 Dose: 14.5 mls/hr Octreotide Acetate 1,200 mcg/ (Sodium Chloride) 500 mls @ 10.41 mls/hr IVPB ASDIR [facility] PRN Reason: 25 MCG/HR Last Admin: 09/01/17 18:03 Dose: 10.41 mls/hr Lactobacillus Acidophilus (Bacid -) 1 tab PO DAILY [facility] Last Admin: 09/01/17 09:28 Dose: 1 tab Levothyroxine Sodium (Synthroid -) 50 mcg PO DAILY@0700 [facility] Last Admin: 09/02/17 06:31 Dose: 50 mcg Multivitamins/Minerals/Vitamin C (Tab-A-Vit -) 1 tab PO DAILY [facility] Last Admin: 09/01/17 09:28 Dose: 1 tab - Objective Vital Signs: Vital Signs Temperature 98.5 F 09/01/17 22:00 Pulse Rate 59 L 09/02/17 00:00 Respiratory Rate 14 09/02/17 00:00 Blood Pressure 146/61 09/02/17 00:00 O2 Sat by Pulse Oximetry (%) 98 09/02/17 00:38 Constitutional: Yes: No Distress, Calm Eyes: Yes: Conjunctiva Clear HENT: Yes: Atraumatic Neck: Yes: Supple Cardiovascular: Yes: Regular Rate and Rhythm Respiratory: Yes: CTA Bilaterally Gastrointestinal: Yes: Soft. No: Distention, Tenderness Musculoskeletal: No: Joint Stiffness, Joint Swelling Extremities: No: Cold, Cool, Cyanosis Edema: No Integumentary: No: Rash, Venous Stasis Changes Neurological: Yes: WNL, Alert, Oriented ...Motor Strength: WNL Psychiatric: Yes: WNL, Alert, Oriented. No: Agitated, Suicidal Ideation Labs: CBC, BMP 09/02/17 05:45 INR, PTT INR 1.08 (0.82-1.09) 08/29/17 15:00 - ....Imaging Other: Report Reviewed Assessment/Plan 77-year-old female, history of colon cancer status post resection, cirrhosis, Whitfield's esophagus, status post endoscopy with clipping of bleeding site to distal esophagus [address] Willard, with hemoglobin of 10 day 4 days ago , here w/ 1 episode of black stool this a.m. States stool was loose. Hg 9 now without any blood products but recurrent melena admitted to ICU GI f/u, advance diet? R abdominal seroma, f/u outpt see above clear fluids diet IV octreotide IV PPI serial CBC might need blood transfusions if active bleeding will need emergent EGD UTI: po ATB tx per ID. diarrhea - po bacid, check stools for CDiff gastric PFX, PPI falls PFX pt advised do not get OOB alone, call for help if needs OOB DVT PFX with TEDs and SCDs, can not use sq heparin b/o GI bleed; pt at risk for DVT/PE given immobility and ho cancer, hypercoag state, pt and family aware prognosis guarded t time 40 min
[2017-09-02 06:50] LABS: ALBUMIN 2.6 g/dl (3.4-5.0); ANION GAP 9 (8-16); BILIRUBIN,TOTAL 0.4 mg/dL (0.2-1.0); BLOOD UREA NITROGEN 20 mg/dL (7-18); CALCIUM 8.1 mg/dL (8.5-10.1); CHLORIDE 106 mmol/L (98-107); CO2 24 mmol/L (21-32); CREATININE 1.5 mg/dL (0.55-1.02); MAGNESIUM 1.9 mg/dL (1.8-2.4); PHOSPHOROUS 3.4 mg/dL (2.5-4.9); POTASSIUM 3.4 mmol/L (3.5-5.1); SGOT/AST 27 U/L (15-37); SGPT/ALT 17 U/L (12-78); SODIUM 139 mmol/L (136-145); TOT PROT 6.7 g/dl (6.4-8.2)
[2017-09-02 06:51] LABS: ALK PHOS 250 U/L (45-117)
[2017-09-02 06:52] LABS: GLUCOSE,RANDOM 112 mg/dL (74-106)
[2017-09-02] MEDS ORDERED: POTASSIUM CHLORIDE TABS 20 MEQ TABLET.ER (FP) PO ONE (08:30)
--- NOTE | 2017-09-02 08:56 | PN ---
Physical Exam: SUBJECTIVE: Patient seen and examined The patient is a 77 year old female with a history of colon cancer s/p hemicolectomy, cirrhosis, mckeon's esophagus s/p endoscopic clipping of a bleeding polyp on 08/25 who is admitted to the ICU for melena, GI bleed and acute anemia. Patient noted to have a dark bowel movement overnight, but otherwise no obvious signs of acute bleeding. CT abdomen pelvis demonstrated a concern for a lesion in the RUQ concerning for abscess vs. hematoma vs. fluid collection. Otherwise, no acute events overnight. OBJECTIVE: Vital Signs Period Temp Pulse Resp BP Sys/Benavides Pulse Ox Last 24 Hr 98 F-98.5 F 54-68 14-20 120-150/55-97 98-100 GENERAL: The patient is awake, alert, and fully oriented, in no acute distress. HEAD: Normal with no signs of trauma. EYES: sclera anicteric, conjunctiva clear. No ptosis. ENT: oropharynx clear without exudates, moist mucous membranes. NECK: Trachea midline, full range of motion, supple. LUNGS: Breath sounds equal, clear to auscultation bilaterally, no wheezes, no crackles, no accessory muscle use. HEART: Regular rate and rhythm, S1, S2 without murmur, rub or gallop. ABDOMEN: Soft, nontender, nondistended, normoactive bowel sounds, no guarding, no rebound, no hepatosplenomegaly, no masses. EXTREMITIES: 2+ pulses, warm, well-perfused, no edema. NEUROLOGICAL: Normal speech, gait not observed. PSYCH: Normal mood, normal affect. SKIN: Warm, dry, normal turgor, no rashes or lesions noted Laboratory Results - last 24 hr 08/31/17 09/02/17 09/02/17 06:15 05:45 05:45 WBC 5.0 RBC 2.79 L Hgb 8.4 L Hct 24.7 L MCV 88.6 MCH 30.2 MCHC 34.1 RDW 15.6 Plt Count 165 MPV 8.2 Neutrophils % 65.6 Lymphocytes % 11.5 D Monocytes % 13.8 H Eosinophils % 8.0 H Basophils % 1.1 Sodium 139 Potassium 3.4 L Chloride 106 Carbon Dioxide 24 Anion Gap 9 BUN 20 H Creatinine 1.5 H Creat Clearance w eGFR 33.67 Random Glucose 112 H Calcium 8.1 L Phosphorus 3.4 Magnesium 1.9 Total Bilirubin 0.4 AST 27 ALT 17 Alkaline Phosphatase 250 H Total Protein 6.7 Albumin 2.6 L Tumor Marker AFP 3.5 [place]ER[place] Screen Negative Hepatitis A Ab Total Negative Hep Bs Antigen Negative Hep Bs Antibody Non reactive Hep B Core Total Ab Negative Hepatitis C Antibody <0.1 Active Medications Generic Name Dose Route Start Last Admin Trade Name Freq PRN Reason Stop Dose Admin Acetaminophen 650 mg 08/29/17 20:39 Tylenol - PO Q6H PRN FEVER Amoxicillin 250 mg 08/31/17 14:00 09/02/17 06:28 Amoxicillin Suspension - PO 250 mg TID [facility] Administration Pantoprazole Sodium 160 mg/ 290 mls @ 14.5 mls/hr 08/30/17 14:15 09/02/17 06: 32 Dextrose IVPB 14.5 mls/hr Q20H [facility] Administration Octreotide Acetate 1,200 mcg/ 500 mls @ 10.41 mls/hr 09/01/17 17:30 09/01/17 18:03 Sodium Chloride IVPB 10.41 mls/hr ASDIR [facility] Administration 25 MCG/HR Lactobacillus Acidophilus 1 tab 08/31/17 12:30 09/01/17 09:28 Bacid - PO 1 tab DAILY [facility] Administration Levothyroxine Sodium 50 mcg 08/30/17 07:00 09/02/17 06:31 Synthroid - PO 50 mcg DAILY@0700 [facility] Administration Multivitamins/Minerals/Vitamin C 1 tab 08/30/17 10:00 09/01/17 09:28 Tab-A-Vit - PO 1 tab DAILY [facility] Administration ASSESSMENT/PLAN: The patient is a 77 year old female with a history of colon cancer s/p hemicolectomy, cirrhosis, mckeon's esophagus s/p endoscopic clipping of a bleeding polyp on 08/25 who is admitted to the ICU for melena, GI bleed and acute anemia. NEURO Patient is alert and oriented x3 No issues currently. -Will continue to monitor. CV No Issues currently. -Will continue to monitor. RESP No Issues currently. -Will continue to monitor GI #GI bleed with melena The patient reports 1 dark bowel movement overnight. She was noted to have 2 melenotic small bowel movements 2 day ago, but otherwise no acute changes. GI is following. CT abdomen demonstrated a fluid collection in the RUQ likely due to post-operative changes. -Discontinue Octreotide drip. -Discontinue Pantoprazole drip. -Will continue to monitor. -Appreciate GI recs. Heme #Acute Anemia The patient presented with a hgb of 7.3 which is now improved to 8.4 -Will continue to monitor h/h. -Will transfuse as needed. Renal No issues currently. -Will continue to monitor. ID No issues currently. -Will continue to monitor. MSK No issues currently FEN/GI -Replete electrolytes PRN, will monitor PPX -Mechanical SCDs DISPO: Stable for floor monitoring. Visit type - Emergency Visit Emergency Visit: No - New Patient This patient is new to me today: No - Critical Care Critical Care patient: No
--- NOTE | 2017-09-02 08:57 | PN ---
Progress Note (short form) - Note Progress Note: surgery pt admitted for ugi bleed. previous right colectomy with abdominal wall resection and subsequent hematoma/abscess drainage. Pt readmitted several months later for ugi bleed. eating well. normal wbc. no fever. ct done now showing resolution of ascites and heterogeneous collection at previous drain site. clinically not an abscess. clinically not a recurrence as it is too large. suspect residual hematoma. no need to drain. consider repeat imaging in 3 months to ensure decreasing size.
[2017-09-02] MEDS: MULTIVITAMINS (DAILY MVI) TABLET (FP) PO SCH (09:35)
[2017-09-02] MEDS: LACTOBACILLUS ACIDOPHILUS 1 EACH TAB (FP) PO SCH (09:35)
[2017-09-02] MEDS ORDERED: ACETAMINOPHEN 325 MG TABLET (FP) PO PRN (12:13)
--- NOTE | 2017-09-02 12:59 | PN ---
Teaching Attending Note Name of Resident: Julian Banuelos ATTENDING PHYSICIAN STATEMENT I saw and evaluated the patient. I reviewed the resident's note and discussed the case with the resident. I agree with the resident's findings and plan as documented. SUBJECTIVE: Pt seen and examined in the ICU. Dark stools overnight but H/H stable. Off protonix and octreotide gtts. OBJECTIVE: Last Vital Signs Temp Pulse Resp BP Pulse Ox 97.2 F L 58 L 16 115/72 98 09/02/17 10:27 09/02/17 12:00 09/02/17 12:00 09/02/17 10:27 09/02/17 00:38 Intake & Output 08/30/17 08/31/17 09/01/17 09/02/17 23:59 23:59 23:59 23:59 Intake Total 1121.2 1170.6 2004.6 319.2 Balance 1121.2 1170.6 2004.6 319.2 Weight 58.649 kg 58.287 kg 57.606 kg 58.105 kg Gen: NAD at rest Heart: RRR Lung: decreased breath sounds at the bases Abd: soft, nontender Ext: no edema CBC, BMP 09/02/17 05:45 09/02/17 05:45 Active Medications Acetaminophen (Tylenol -) 650 mg PO Q6H PRN PRN Reason: FEVER Amoxicillin (Amoxicillin Suspension -) 250 mg PO TID [facility] Lactobacillus Acidophilus (Bacid -) 1 tab PO DAILY [facility] Levothyroxine Sodium (Synthroid -) 50 mcg PO DAILY@0700 [facility] Multivitamins/Minerals/Vitamin C (Tab-A-Vit -) 1 tab PO DAILY [facility] Pantoprazole Sodium (Protonix -) 40 mg PO BID [facility] ASSESSMENT AND PLAN: GI Bleed Liver Cirrhosis UTI h/o Colon Ca s/p R hemicolectomy Whitfield's Esophagus - monitor H/H - transfuse as needed - PO protonix - advance diet per GI - continue antibiotics - DVT prophylaxis - can monitor on floor
--- NOTE | 2017-09-02 16:31 | PN ---
GI Progress Note Subjective: GI NOte: Stool have cahnged form shamar to black but Hb remains stable. No pain. I have stop PPI and octreotide drips. Will advance diet - Objective Vital Signs: Vital Signs Temperature 98.4 F 09/02/17 13:45 Pulse Rate 64 09/02/17 13:45 Respiratory Rate 16 09/02/17 13:45 Blood Pressure 144/62 09/02/17 13:45 O2 Sat by Pulse Oximetry (%) 98 09/02/17 00:38 Laboratory Tests 08/29/17 08/30/17 08/31/17 23:00 19:20 06:15 Hgb 8.2 L 9.1 L 8.9 L 09/01/17 09/02/17 05:40 05:45 Hgb 8.8 L 8.4 L Constitutional: No Distress ...Auscultate: Yes: Normoactive Bowel Sounds ...Palpate: Yes: Soft, Other (nontender) Labs: CBC, BMP 09/02/17 05:45 09/02/17 05:45 INR, PTT INR 1.08 (0.82-1.09) 08/29/17 15:00 Problem List - Problems (1) GERD (gastroesophageal reflux disease) Code(s): K21.9 - GASTRO-ESOPHAGEAL REFLUX DISEASE WITHOUT ESOPHAGITIS Qualifiers: Esophagitis presence: with esophagitis Qualified Code(s): K21.0 - Gastro- esophageal reflux disease with esophagitis (2) Cholelithiasis Code(s): K80.20 - CALCULUS OF GALLBLADDER W/O CHOLECYSTITIS W/O OBSTRUCTION (3) Acute blood loss anemia Assessment/Plan: Marah is now passing old blood. Will allow soft diet. Continue oral PPI Code(s): D62 - ACUTE POSTHEMORRHAGIC ANEMIA (4) Barretts esophagus Code(s): K22.70 - SEXTON'S ESOPHAGUS WITHOUT DYSPLASIA (5) Cirrhosis Code(s): K74.60 - UNSPECIFIED CIRRHOSIS OF LIVER (6) Colon neoplasm Code(s): D49.0 - NEOPLASM OF UNSPECIFIED BEHAVIOR OF DIGESTIVE SYSTEM
[2017-09-02] MEDS ORDERED: PANTOPRAZOLE 40 MG TABLET (FP) PO SCH ×2 (22:00)
[2017-09-03] MEDS: AMOXICILLIN ORAL SUSPENSION - 250 MG/5 ML PO SCH (05:36)
[2017-09-03 05:45] LABS: HEMATOCRIT 25.2 % (32.4-45.2); HEMOGLOBIN 8.5 GM/dL (10.7-15.3); MCH 30.2 pg (25.7-33.7); MCHC 33.6 g/dl (32.0-36.0); MEAN CELL VOLUME 89.8 fl (80-96); PLATELET COUNT 155 K/MM3 (134-434); RBC 2.81 M/mm3 (3.60-5.2); RDW 15.7 % (11.6-15.6); WHITE BLOOD COUNT 5.2 K/mm3 (4.0-10.0)
[2017-09-03 06:06] LABS: ALBUMIN 2.6 g/dl (3.4-5.0); ANION GAP 8 (8-16); BLOOD UREA NITROGEN 17 mg/dL (7-18); CALCIUM 8.3 mg/dL (8.5-10.1); CHLORIDE 106 mmol/L (98-107); CO2 24 mmol/L (21-32); POTASSIUM 3.9 mmol/L (3.5-5.1); SODIUM 138 mmol/L (136-145)
[2017-09-03 06:09] LABS: ALK PHOS 287 U/L (45-117); BILIRUBIN,TOTAL 0.4 mg/dL (0.2-1.0); CREATININE 1.6 mg/dL (0.55-1.02); SGOT/AST 27 U/L (15-37); SGPT/ALT 15 U/L (12-78)
[2017-09-03 06:10] LABS: GLUCOSE,RANDOM 114 mg/dL (74-106)
[2017-09-03] MEDS ORDERED: LEVOTHYROXINE NA 50 MCG TABLET (FP) PO SCH (07:00)
--- NOTE | 2017-09-03 08:38 | DS ---
Physical Examination Vital Signs: Vital Signs Temperature 97.9 F 09/03/17 06:00 Pulse Rate 62 09/03/17 06:00 Respiratory Rate 15 09/03/17 06:00 Blood Pressure 141/62 09/03/17 06:00 O2 Sat by Pulse Oximetry (%) 99 09/02/17 21:18 Findings/Remarks: in bed doing well no GI bleed no black stools; diarrhea subsided tolerated po food, wants to go home ambulates OK H&H stable; off IV octreotide per ID OK to DC ATB per GI OK to DC home f/u as advised d/w pt and daughter at bedside scripts done t time 40 min Constitutional: Yes: No Distress, Calm Eyes: Yes: Conjunctiva Clear HENT: Yes: Atraumatic Neck: Yes: Supple Cardiovascular: Yes: Regular Rate and Rhythm Respiratory: Yes: CTA Bilaterally Gastrointestinal: Yes: Soft. No: Distention, Tenderness Renal/: No: CVA Tenderness - Left, CVA Tenderness - Right Musculoskeletal: No: Joint Stiffness, Joint Swelling, Muscle Pain Extremities: No: Cold, Cool, Cyanosis Edema: No Integumentary: No: Rash, Venous Stasis Changes Neurological: Yes: WNL, Alert, Oriented ...Motor Strength: WNL Psychiatric: Yes: WNL, Alert, Oriented. No: Agitated, Suicidal Ideation Labs: CBC, BMP 09/03/17 05:15 09/03/17 05:15 Discharge Summary Reason For Visit: MELENA Current Active Problems Cholelithiasis (Acute) GERD (gastroesophageal reflux disease) (Acute) GIB (gastrointestinal bleeding) (Acute) Procedures: Principal: admitted with UGI bleed sec to varices / liver cirrhosis after EGD Other Procedures: IV octreotide; ICU monitoring;. GI eval dr Padilla;. UTI: ATB per ID; surgery eval also Hospital Course: improved with above; DC home and f/u as advised; Condition: Improved - Instructions Referrals: Sayda Segura [Primary Care Provider] - Ricarda Padilla MD [Staff Physician] - Eloy Herzog MD [Staff Physician] - Disposition: VNS/HOME HEALTH CARE - Home Medications Comprehensive Discharge Medication List: Ambulatory Orders Acetaminophen [Tylenol .Regular Strength -] 650 mg PO Q6H PRN #0 tablet Levothyroxine [Synthroid -] 50 mcg PO DAILY@0700 tablet 05/25/17 Multivitamins [Multivit ([facility])] 1 tab PO DAILY tab 05/25/17 Pantoprazole Sodium [Protonix -] 40 mg PO DAILY tab 05/25/17
[2017-09-03 09:01] VITALS: BP 111/61; PULSE 62
[2017-09-03 09:42] VITALS: TEMP 98.2
[2017-09-03] MEDS ORDERED: PANTOPRAZOLE 40 MG TABLET (FP) PO SCH (10:00)
[2017-09-03] MEDS ORDERED: MULTIVITAMINS (DAILY MVI) TABLET (FP) PO SCH (10:00)
[2017-09-03] MEDS ORDERED: LACTOBACILLUS ACIDOPHILUS 1 EACH TAB (FP) PO SCH (10:00)
--- NOTE | 2017-09-03 11:19 | PN ---
Physical Exam: SUBJECTIVE: Patient seen and examined. She is feeling good today, no complaints , no more episodes of bleeding. No overnight events. OBJECTIVE: Vital Signs Period Temp Pulse Resp BP Sys/Benavides Pulse Ox Last 24 Hr 97.9 F-98.4 F 58-109 13-18 111-153/51-69 99-99 GENERAL: The patient is awake, alert, and fully oriented, in no acute distress. HEAD: Normal with no signs of trauma. EYES: extraocular movements intact, sclera anicteric, conjunctiva clear. ENT: oropharynx clear without exudates, moist mucous membranes. NECK: Trachea midline, full range of motion, supple. LUNGS: Breath sounds equal, clear to auscultation bilaterally, no wheezes, no crackles, no accessory muscle use. HEART: Regular rate and rhythm, S1, S2 without murmur, rub or gallop. ABDOMEN: Soft, nontender, distended, normoactive bowel sounds, no guarding, no rebound, no hepatosplenomegaly, no masses, well healed longitudinal scar present , s/p hemicolectomy. EXTREMITIES: 2+ pulses, warm, no edema. NEUROLOGICAL: Normal speech, no facial asymmetry, motor 5/5, gait WNL. PSYCH: Normal mood, normal affect. SKIN: Warm, dry, normal turgor, no rashes. Laboratory Results - last 24 hr 09/03/17 09/03/17 05:15 05:15 WBC 5.2 RBC 2.81 L Hgb 8.5 L Hct 25.2 L MCV 89.8 MCH 30.2 MCHC 33.6 RDW 15.7 H Plt Count 155 MPV 8.0 Sodium 138 Potassium 3.9 Chloride 106 Carbon Dioxide 24 Anion Gap 8 BUN 17 Creatinine 1.6 H Creat Clearance w eGFR 31.26 Random Glucose 114 H Calcium 8.3 L Total Bilirubin 0.4 AST 27 ALT 15 Alkaline Phosphatase 287 H Total Protein 7.0 Albumin 2.6 L Active Medications Generic Name Dose Route Start Last Admin Trade Name Freq PRN Reason Stop Dose Admin Acetaminophen 650 mg 09/02/17 12:13 Tylenol - PO Q6H PRN FEVER Lactobacillus Acidophilus 1 tab 09/03/17 10:00 09/03/17 09:46 Bacid - PO 1 tab DAILY [facility] Administration Levothyroxine Sodium 50 mcg 09/03/17 07:00 09/03/17 06:08 Synthroid - PO 50 mcg DAILY@0700 [facility] Administration Multivitamins/Minerals/Vitamin C 1 tab 09/03/17 10:00 09/03/17 09:46 Tab-A-Vit - PO 1 tab DAILY [facility] Administration Pantoprazole Sodium 40 mg 09/03/17 10:00 09/03/17 09:46 Protonix - PO 40 mg DAILY [facility] Administration ASSESSMENT/PLAN: The patient is a 77 year old female with a history of colon cancer s/p hemicolectomy, cirrhosis, mckeon's esophagus s/p endoscopic clipping of a bleeding polyp on 08/25 who is admitted to the ICU for melena, GI bleed and acute anemia. NEURO Patient is alert and oriented x3 No issues currently. CV No Issues currently. -Will continue to monitor. RESP No Issues currently. -Will continue to monitor GI GI bleed with melena -the pt still reports dark bowel movements but no melena. Octreotide drip and PPI drip were stopped -Will continue to monitor. Heme Acute Anemia The patient presented with a hgb of 7.3 which is now improved to 8.4, stable today 8.5 Renal No issues currently. -Will continue to monitor. ID No issues currently. -Will continue to monitor. FEN no fluids/no changes/soft diet PPX -Mechanical SCDs GI PPX: protonix 40 mg qd DISPO: Stable for floor monitoring or discharge home Problem List - Problems (1) GERD (gastroesophageal reflux disease) Code(s): K21.9 - GASTRO-ESOPHAGEAL REFLUX DISEASE WITHOUT ESOPHAGITIS Qualifiers: Esophagitis presence: with esophagitis Qualified Code(s): K21.0 - Gastro- esophageal reflux disease with esophagitis (2) Acute blood loss anemia Code(s): D62 - ACUTE POSTHEMORRHAGIC ANEMIA (3) Anemia Code(s): D64.9 - ANEMIA, UNSPECIFIED Qualifiers: Anemia type: unspecified type Qualified Code(s): D64.9 - Anemia, unspecified (4) Barretts esophagus Code(s): K22.70 - MCKEON'S ESOPHAGUS WITHOUT DYSPLASIA (5) Cirrhosis Code(s): K74.60 - UNSPECIFIED CIRRHOSIS OF LIVER (6) Colon neoplasm Code(s): D49.0 - NEOPLASM OF UNSPECIFIED BEHAVIOR OF DIGESTIVE SYSTEM (7) History of colon cancer Code(s): Z85.038 - PERSONAL HISTORY OF MALIGNANT NEOPLASM OF LARGE INTESTINE Visit type - Emergency Visit Emergency Visit: Yes ED Registration Date: 08/29/17 Care time: The patient presented to the Emergency Department on the above date and was hospitalized for further evaluation of their emergent condition. - New Patient This patient is new to me today: No - Critical Care Critical Care patient: Yes Total Critical Care Time (in minutes): 40 Critical Care Statement: The care of this patient involved high complexity decision making to prevent further life threatening deterioration of the patient 's condition and/or to evaluate & treat vital organ system(s) failure or risk of failure.
--- NOTE | 2017-09-03 11:37 | PN ---
Teaching Attending Note Name of Resident: Virgen Gaspar ATTENDING PHYSICIAN STATEMENT I saw and evaluated the patient. I reviewed the resident's note and discussed the case with the resident. I agree with the resident's findings and plan as documented. SUBJECTIVE: Pt seen and examined in the ICU. Dark stools overnight but no change in H/H. Tolerating soft diet. OBJECTIVE: Last Vital Signs Temp Pulse Resp BP Pulse Ox 98.2 F 62 18 111/61 99 09/03/17 09:01 09/03/17 09:01 09/03/17 09:01 09/03/17 09:01 09/02/17 21:18 Intake & Output 08/31/17 09/01/17 09/02/17 09/03/17 23:59 23:59 23:59 23:59 Intake Total 1170.6 2005.6 999.2 120 Balance 1170.6 2005.6 999.2 120 Weight 58.287 kg 57.606 kg 58.105 kg 57.425 kg Gen: NAD at rest Heart: RRR Lung: decreased breath sounds at the bases Abd: soft, nontender Ext: no edema CBC, BMP 09/03/17 05:15 09/03/17 05:15 Active Medications Acetaminophen (Tylenol -) 650 mg PO Q6H PRN PRN Reason: FEVER Lactobacillus Acidophilus (Bacid -) 1 tab PO DAILY [facility] Last Admin: 09/03/17 09:46 Dose: 1 tab Levothyroxine Sodium (Synthroid -) 50 mcg PO DAILY@0700 [facility] Last Admin: 09/03/17 06:08 Dose: 50 mcg Multivitamins/Minerals/Vitamin C (Tab-A-Vit -) 1 tab PO DAILY [facility] Last Admin: 09/03/17 09:46 Dose: 1 tab Pantoprazole Sodium (Protonix -) 40 mg PO DAILY [facility] Last Admin: 09/03/17 09:46 Dose: 40 mg ASSESSMENT AND PLAN: GI Bleed Liver Cirrhosis UTI h/o Colon Ca s/p R hemicolectomy Whitfield's Esophagus - monitor H/H - transfuse as needed - PO protonix - advance diet per GI - s/p antibiotics - DVT prophylaxis - d/c planning
== END 2017-09-03 11:30 | disposition home health service (06) | DRG 919 ==
LOC: JER 10:42 → JERBED 15:02 → JICU 18:28
PROVIDERS: ADMIT Internal Medicine; ATTEND Internal Medicine
DX: K91.840 Postprocedural hemorrhage of a digestive system organ or structure following a digestive system procedure (principal); I85.01 Esophageal varices with bleeding; D62 Acute posthemorrhagic anemia; C18.9 Malignant neoplasm of colon, unspecified; N39.0 Urinary tract infection, site not specified; K76.6 Portal hypertension; B95.1 Streptococcus, group B, as the cause of diseases classified elsewhere; K74.60 Unspecified cirrhosis of liver; K22.70 Barrett's esophagus without dysplasia; K21.0 Gastro-esophageal reflux disease with esophagitis; E03.9 Hypothyroidism, unspecified; R19.7 Diarrhea, unspecified; Z87.891 Personal history of nicotine dependence; Z90.49 Acquired absence of other specified parts of digestive tract; Z85.038 Personal history of other malignant neoplasm of large intestine
CPT/HCPCS: 36415; 71045-TC; 74176-TC; 76700-TC; 80048; 80053; 80076; 81003; 81015; 82105; 82977; 83735; 84100; 85025; 85027; 85610; 86038; 86704; 86706; 86708; 86803; 86850; 86900; 86901; 87086; 87186; 87340; 93005; 93010; 99284-25

== ENCOUNTER 2017-09-22 11:31 | Inpatient (IN) | payer OTHER, BC ==
--- NOTE | 2017-09-22 12:58 | PDOC ---
History of Present Illness - General History Source: Patient Exam Limitations: No Limitations - History of Present Illness Initial Comments: 09/22/17 17:27 The patient is a 77 year old female with a significant PMH of anemia, colon CA ( s/p resection), acute kidney injury, cirrhosis of liver, Barretts esophagus, varices, hemorrhoids, and hypothyroidism who presents to the emergency department with 3 episodes of black tarry stool since this morning. She describes her stool this morning as liquid diarrhea episodes with a blackish color and tarry appearance at about 3AM, 7:30AM, and 9AM, which became a black, consistent solid stool at 11AM. She also reports associated nausea and upper abdominal discomfort. The patient notes she has had 2 previous episodes of hematochezia over the past 6 months after she had her resection, and has had multiple endoscopies done. Her prior endoscopies have been done by Dr. Willard and Dr. Padilla. The patient denies chest pain, shortness of breath, headache and dizziness. Denies fever, chills, nausea, vomit, and constipation. Denies dysuria, frequency, urgency and hematuria. Denies weakness, numbness Allergies: NKA Past surgical history: Colon resection. Social history: No reported cigarette, alcohol, or drug use. PCP: None reported. <Ghanshyam Park - Last Filed: 09/22/17 17:51> <Herman Juan - Last Filed: 09/22/17 19:13> - General Chief Complaint: Rectal Bleed Stated Complaint: BLOOD IN STOOL Time Seen by Provider: 09/22/17 12:25 Past History <Ghanshyam Park - Last Filed: 09/22/17 17:51> - Past Medical History Anemia: Yes Cancer: Yes (COLON CA AND TUMOR) COPD: No Disorders: Yes (ACUTE KIDNEY INJURY) Liver Disease: Yes (cirrhosis) Thyroid Disease: Yes (HYPOTHYROIDISM) - Surgical History Abdominal Surgery: Yes (COLON resection) - Suicide/Smoking/Psychosocial Hx Smoking History: Never smoked Have you smoked in the past 12 months: No If you are a former smoker, when did you quit?: 50 YEARS AGO Information on smoking cessation initiated: No 'Breaking Loose' booklet given: 08/29/17 Hx Alcohol Use: No Drug/Substance Use Hx: No Substance Use Type: None Hx Substance Use Treatment: No <Drake,Dionjeff - Last Filed: 09/22/17 19:13> - Past Medical History Allergies/Adverse Reactions: Allergies Allergy/AdvReac Type Severity Reaction Status Date / Time No Known Allergies Allergy Verified 09/22/17 11:48 Home Medications: Ambulatory Orders Levothyroxine [Synthroid -] 50 mcg PO DAILY@0700 tablet 05/25/17 Multivit-Min/Iron/Folic/Lutein [Centrum Silver Women Tablet] 1 each PO DAILY Pantoprazole Sodium [Protonix -] 40 mg PO BID 09/22/17 Review of Systems - Review of Systems Able to Perform ROS?: Yes Comments:: 09/22/17 17:27 GENERAL/CONSTITUTIONAL: No fever or chills. No weakness. HEAD, EYES, EARS, NOSE AND THROAT: No change in vision. No ear pain or discharge. No sore throat. GASTROINTESTINAL: (+) Black tarry stool. No nausea, vomiting, or constipation. GENITOURINARY: No dysuria, frequency, or change in urination. CARDIOVASCULAR: No chest pain or shortness of breath. RESPIRATORY: No cough, wheezing, or hemoptysis. MUSCULOSKELETAL: No joint or muscle swelling or pain. No neck or back pain. SKIN: No rash NEUROLOGIC: No headache, vertigo, loss of consciousness, or change in strength/ sensation. ENDOCRINE: No increased thirst. No abnormal weight change. HEMATOLOGIC/LYMPHATIC: No anemia, easy bleeding, or history of blood clots. ALLERGIC/IMMUNOLOGIC: No hives or skin allergy. <Ghanshyam Park - Last Filed: 09/22/17 17:51> *Physical Exam - Vital Signs Last Vital Signs Temp Pulse Resp BP Pulse Ox 97.7 F 72 18 130/55 100 09/22/17 11:35 09/22/17 11:35 09/22/17 11:35 09/22/17 11:35 09/22/17 11:35 - Physical Exam Comments: 09/22/17 17:28 GENERAL: Awake, alert, and fully oriented, in no acute distress HEAD: No signs of trauma EYES: PERRLA, EOMI, sclera anicteric, conjunctiva clear ENT: Auricles normal inspection, hearing grossly normal, nares patent, oropharynx clear without exudates. Moist mucosa NECK: Normal ROM, supple, no lymphadenopathy, JVD, or masses LUNGS: Breath sounds equal, clear to auscultation bilaterally. No wheezes, and no crackles HEART: Regular rate and rhythm, normal S1 and S2, no murmurs, rubs or gallops ABDOMEN: Soft, nontender, normoactive bowel sounds. No guarding, no rebound. No masses. Rectal exam with non bleeding, non thrombosed hemorrhoids with dark brown stool w/o tangela blood. EXTREMITIES: Normal range of motion, no edema. No clubbing or cyanosis. No cords , erythema, or tenderness BACK: No midline spinal tenderness in cervical/thoracic/lumbar region NEUROLOGICAL: Normal speech, cranial nerves intact, negative pronator drift, 5/ 5 strength in all 4 extremities, normal sensation to light touch in all 4 extremities, normal cerebellar exam, normal gait, normal reflexes and tone SKIN: Warm, Dry, normal turgor, no rashes or lesions noted. <Ghanshyam Park - Last Filed: 09/22/17 17:51> - Vital Signs Last Vital Signs Temp Pulse Resp BP Pulse Ox 97.7 F 72 18 130/55 100 09/22/17 11:35 09/22/17 11:35 09/22/17 11:35 09/22/17 11:35 09/22/17 11:35 <Herman Juan - Last Filed: 09/22/17 19:13> ED Treatment Course - LABORATORY CBC & Chemistry Diagram: 09/22/17 15:00 09/22/17 16:50 - ADDITIONAL ORDERS Additional order review: Laboratory Results 09/22/17 09/22/17 09/22/17 15:00 15:00 15:00 PT with INR INR PTT (Actin FS) Sodium Cancelled Potassium Cancelled Chloride Cancelled Carbon Dioxide Cancelled Anion Gap Cancelled BUN Cancelled Creatinine Cancelled Creat Clearance w eGFR Cancelled Random Glucose Cancelled Lactic Acid 1.2 Calcium Cancelled Total Bilirubin Cancelled AST Cancelled ALT Cancelled Alkaline Phosphatase Cancelled Total Protein Cancelled Albumin Cancelled Lipase Cancelled Stool Occult Blood Crossmatch See Detail 09/22/17 09/22/17 15:00 13:57 PT with INR 11.90 H INR 1.05 PTT (Actin FS) 32.6 Sodium Potassium Chloride Carbon Dioxide Anion Gap BUN Creatinine Creat Clearance w eGFR Random Glucose Lactic Acid Calcium Total Bilirubin AST ALT Alkaline Phosphatase Total Protein Albumin Lipase Stool Occult Blood Negative Crossmatch 09/22/17 15:00 RBC 2.36 L MCV 85.5 MCHC 33.6 RDW 15.2 MPV 8.0 Neutrophils % 82.0 D Lymphocytes % 8.7 D Monocytes % 8.0 Eosinophils % 0.6 D Basophils % 0.7 - Medications Given in the ED: ED Medications Discontinued Medications Generic Name Dose Route Start Last Admin Trade Name Ethel PRN Reason Stop Dose Admin Pantoprazole Sodium 40 mg 09/22/17 13:48 09/22/17 15:24 Protonix Iv IVPUSH 09/22/17 13:49 40 mg ONCE ONE Administration <Ghanshyam Park - Last Filed: 09/22/17 17:51> - LABORATORY CBC & Chemistry Diagram: 09/22/17 15:00 09/22/17 16:50 <Herman Juan - Last Filed: 09/22/17 19:13> Medical Decision Making - Medical Decision Making 09/22/17 16:[address] Padilla at 15:40, who said he could not come down to see the patient and told us to contact. Dr. Becerra. We spoke with Dr. Becerra who came down and discussed the case. Awaiting recommendations. 09/22/17 17:[address] Navjot Segura who admitted the patient. <Ghanshyam Park - Last Filed: 09/22/17 17:51> - Medical Decision Making 09/22/17 16:41 77yo F hx colon ca, varices s/p clipping, hx UGIB p/w melena since 3am this morning. Vitals in ED wnl. Guaiac stool dark but occult negative. Pt given pantoprazole. Hgb returned as 6.8. Pt's family states baseline hgb in 9's. Ocretotide ordered given hx varices. Pt stated her GI doc was Dr. Flores, we discussed case with him, he asked that we call Dr. Becerra. Case discussed with Dr. Becerra in the ED, who has evaluated patient and ordered octreotide bolus/drip Case discussed with Dr. Emiliano Segura, who accepts patient for admission to inpt med/surg. Case discussed in detail with admitting physician including history, physical exam and ancillary studies. Admitting physician has assumed care for the patient, will follow all pending diagnostics and will complete the evaluation and treatment. <Herman Juan - Last Filed: 09/22/17 19:13> *DC/Admit/Observation/Transfer - Attestations Scribe Attestion: 09/22/17 17:28 Documentation prepared by Ghanshyam Park, acting as medical records library professor for Herman Juan MD. <Ghanshyam Park - Last Filed: 09/22/17 17:51> - Discharge Dispostion Admit: Yes - Attestations Physician Attestion: 09/22/17 16:45 I, Dr. Herman Juan MD, attest that this document has been prepared under my direction and personally reviewed by me in its entirety. I further attest, that it accurately reflects all work, treatment, procedures and medical decision -making performed by me. <Herman Juan - Last Filed: 09/22/17 19:13> Diagnosis at time of Disposition: GIB (gastrointestinal bleeding) Qualifiers: GI bleed type/associated pathology: melena Qualified Code(s): K92.1 - Melena - Discharge Dispostion Condition at time of disposition: Stable
[2017-09-22] MEDS ORDERED: PANTOPRAZOLE SODIUM 40 MG VIAL IVPUSH ONE (13:48)
[2017-09-22 15:08] LABS: BASO % 0.7 % (0-2.0); EOS % 0.6 % (0-4.5); HEMATOCRIT 20.2 % (32.4-45.2); LYMPH % 8.7 % (8-40); MCH 28.7 pg (25.7-33.7); MCHC 33.6 g/dl (32.0-36.0); MEAN CELL VOLUME 85.5 fl (80-96); PLATELET COUNT 182 K/MM3 (134-434); RBC 2.36 M/mm3 (3.60-5.2); RDW 15.2 % (11.6-15.6); WHITE BLOOD COUNT 8.1 K/mm3 (4.0-10.0)
[2017-09-22 15:15] LABS: HEMOGLOBIN 6.8 GM/dL (10.7-15.3)
[2017-09-22 15:16] LABS: ADD RBC MORPHOLOGY YES
[2017-09-22] MEDS ORDERED: PANTOPRAZOLE SODIUM 40 MG VIAL ONE (15:23)
[2017-09-22 15:32] LABS: INR 1.05 (0.82-1.09); PROTHROMBIN TIME (PATIENT) 11.9 SEC (9.98-11.88)
[2017-09-22 15:35] LABS: ACTIVATED PTT 32.6 SECONDS (26.9-34.4)
[2017-09-22 15:44] LABS: ANISOCYTOSIS 1+; PLATELET ESTIMATE ADEQUATE
--- NOTE | 2017-09-22 16:37 | CON.GI ---
Consult Consult Specialty:: GI: Dr. Becerra covering for Dr. Padilla Referred by:: Dr. Sayda Segura Reason for Consultation:: Melena - History of Present Illness Chief Complaint: My stool was black History of Present Illness: 77F admitted through [facility] ER for evaluation of black bowel movements. She states that she was in her USOH up until last night when she began experiencing black "muddy" bowel movements. they persisted through the night and into this morning. Her last bowel movements was dark but formed. She has been followed by Dr. Eddie Willard for cirrhosis. She recently had undergone upper endoscopy with him in mid / end of this past August with ? biopsies performed for mckeon's (? clipping performed). She subsequently developed melena, was seen by Dr. Ricarda Padilla 08/29/16 and was admitted to the [facility] ICU. She was started in octreotide drip and PPI, treated conservatively and was discharged. CT scan at that time revealed a periduodenal mass as well. She opted to switch care to Dr. Padilla as she wanted more local care. Currently, she has not had a melenic BM in the ER. She denies abdominal pain , nausea, vomiting or hematemesis. She denies eddie hematochezia. 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 SAMPSON), Cholelithiasis, Other (ASCITES POST SURGERY, HYPOALBUMINEMIA) Renal/: Yes: Renal Failure (resolved) Infectious Disease: Yes: Other (INTRAABDOMINAL ABSCESS POST SURGERY) Endocrine: Yes: Hyperthyroidism (treated with RAIU and now hypothyroid, recent benign biopsy) Dermatology: Yes: Cellulitis - Past Surgical History Past Surgical History: Yes: Colectomy, Colonoscopy, (C section x 2), Oopherectomy, Upper Endoscopy - Alcohol/Substance Use Hx Alcohol Use: No History of Substance Use: reports: None - Smoking History Smoking history: Never smoked Have you smoked in the past 12 months: No If you are a former smoker, when did you quit?: 50 YEARS AGO - Social History Usual Living Arrangement: Alone ADL: Independent Place of : [place] History of Recent Travel: No Home Medications - Allergies Allergies/Adverse Reactions: Allergies Allergy/AdvReac Type Severity Reaction Status Date / Time No Known Allergies Allergy Verified 09/22/17 11:48 - Home Medications Home Medications: Ambulatory Orders Levothyroxine [Synthroid -] 50 mcg PO DAILY@0700 tablet 05/25/17 Multivit-Min/Iron/Folic/Lutein [Centrum Silver Women Tablet] 1 each PO DAILY Pantoprazole Sodium [Protonix -] 40 mg PO BID 09/22/17 Family Disease History - Family Disease History Family Disease History: CA: Father (lung cancer), Mother (ovarian cancer), Brother (lung cancer), Other: Son, Daughter (lupus) Physical Exam-GI Vital Signs: Vital Signs Temperature 97.7 F 09/22/17 16:00 Pulse Rate 91 09/22/17 16:00 Respiratory Rate 18 09/22/17 16:00 Blood Pressure 132/59 09/22/17 16:00 O2 Sat by Pulse Oximetry (%) 100 RA 09/22/17 16:00 Constitutional: Yes: Calm Eyes: No: Sclera Icterus Cardiovascular: Yes: Regular Rate and Rhythm, Murmur (+ Systolic murmur) Respiratory: Yes: CTA Bilaterally Gastrointestinal Inspection: Yes: Scars ...Auscultate: Yes: Normoactive Bowel Sounds ...Palpate: Yes: Soft. No: Hepatomegaly, Splenomegaly, Tenderness ...Percussion: No: Tympanitic ...Rectal Exam: Yes: Other (+ external hemorrhoids with mild rectal prolapse. No blood/melena) Edema: No (No LE edema) Neurological: Yes: Alert, Oriented Labs: CBC, BMP 09/22/17 15:00 09/22/17 15:00 INR, PTT INR 1.05 (0.82-1.09) 09/22/17 15:00 Problem List - Problems (1) Melena Assessment/Plan: Patient with melenic BM's through the night and worsening anemia from her baseline. hemopdynamically stable. ? etiology of melena. ? secondary to pathology associated with portal HTN such as esophageal/gastric varices, portal gastropathy. ? If alternate pathology such as PUD / invasive process to the duodenum given CT scan findings. Plan: Discussed possibility of upper endoscopy with Ms. León and her daughter who was present bedside. she is hesitant to have endoscopy performed at this time and wanted to discuss things with Dr. Padilla first. I discussed things with her and he will be talking with her and her daughter. In the interim: Admit to ICU NPO except meds Octrotide drip and infusion ordered Protonix drip ordered Code(s): K92.1 - MELENA
[2017-09-22] MEDS ORDERED: OCTREOTIDE ACETATE 50 MCG/1 ML - 1 ML VIAL IVPUSH ONE (16:56)
[2017-09-22] MEDS ORDERED: PANTOPRAZOLE SODIUM 80 MG in SODIUM CHLORIDE 100 ML IVPB SCH (17:00)
[2017-09-22 17:48] LABS: ALBUMIN 2.7 g/dl (3.4-5.0); ANION GAP 8 (8-16); BILIRUBIN,TOTAL 0.5 mg/dL (0.2-1.0); BLOOD UREA NITROGEN 29 mg/dL (7-18); CALCIUM 7.8 mg/dL (8.5-10.1); CHLORIDE 101 mmol/L (98-107); CO2 25 mmol/L (21-32); CREATININE 1.1 mg/dL (0.55-1.02); GLUCOSE,RANDOM 91 mg/dL (74-106); POTASSIUM 3.7 mmol/L (3.5-5.1); SGOT/AST 33 U/L (15-37); SGPT/ALT 13 U/L (12-78); SODIUM 134 mmol/L (136-145); TOT PROT 6.5 g/dl (6.4-8.2)
[2017-09-22 17:49] LABS: ALK PHOS 213 U/L (45-117)
[2017-09-22] MEDS: PANTOPRAZOLE SODIUM 160 MG in DEXTROSE 5%-WATER - 290 ML IVPB SCH (18:00)
[2017-09-22] MEDS: OCTREOTIDE ACETATE 1,200 MCG in DEXTROSE 5%-WATER - 488 ML IVPB SCH (18:00)
[2017-09-22] MEDS ORDERED: OCTREOTIDE ACETATE 100 MCG/1 ML ONE (18:07)
[2017-09-23 00:47] VITALS: BMI 21.3
--- NOTE | 2017-09-23 01:17 | CONSULT ---
Consult Consult Specialty:: Pulm Critical Care Referred by:: Dr. Moreno Reason for Consultation:: GIB - History of Present Illness Chief Complaint: black tarry stools History of Present Illness: The patient is a 77 yo woman w/ PMHx of anemia, colon CA (s/p resection), SHARITA, cirrhosis, Barretts esophagus, bleeding varices, hemorrhoids, and hypothyroidism who presented to the [facility] w/ c/o of black tarry stool x3 since morning. She described her stool this morning as first formed tarry stool then liquid tarry stool. +dizziness and weakness, +nausea and indigestion. Of note, she endorses that she had 2 episodes of hematochezia over the past 6 months after she had her resection, and has had multiple EGDs done (by Dr. Willard and Dr. Padilla). Confirmed Barretts in August 2017 c/b melena req' ing ICU stay, tx'ed conservatively and discharged. CT scan at that time revealed a periduodenal mass. In the ED, she was hemodynamically stable, started on octreotide and protonix gtts, Hgb 6.7 and received 1 Unit PRBC and started 2nd unit PRBC before arriving to ICU overnight. In the ICU, pt is hemodynamically stable, she denies any discomfort, and nausea is improved. No stool since arriving to ED from home. No abdominal tenderness on palp. Skin is warm and pink. 2nd unit of PRBC hanging. Continued on octreotide and protonix gtts. 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 SAMPSON), Cholelithiasis, Other (ASCITES POST SURGERY, HYPOALBUMINEMIA) Renal/: Yes: Renal Failure (resolved) Infectious Disease: Yes: Other (INTRAABDOMINAL ABSCESS POST SURGERY) Endocrine: Yes: Hyperthyroidism (treated with RAIU and now hypothyroid, recent benign biopsy) Dermatology: Yes: Cellulitis - Past Surgical History Past Surgical History: Yes: Colectomy, Colonoscopy, (C section x 2), Oopherectomy, Upper Endoscopy - Alcohol/Substance Use Hx Alcohol Use: No History of Substance Use: reports: None - Smoking History Smoking history: Never smoked Have you smoked in the past 12 months: No If you are a former smoker, when did you quit?: 50 YEARS AGO - Social History Usual Living Arrangement: Alone ADL: Independent History of Recent Travel: No Home Medications - Allergies Allergies/Adverse Reactions: Allergies Allergy/AdvReac Type Severity Reaction Status Date / Time No Known Allergies Allergy Verified 09/22/17 11:48 - Home Medications Home Medications: Ambulatory Orders Levothyroxine [Synthroid -] 50 mcg PO DAILY@0700 tablet 05/25/17 Multivit-Min/Iron/Folic/Lutein [Centrum Silver Women Tablet] 1 each PO DAILY Pantoprazole Sodium [Protonix -] 40 mg PO BID 09/22/17 Family Disease History - Family Disease History Family Disease History: CA: Father (lung cancer), Mother (ovarian cancer), Brother (lung cancer), Other: Son, Daughter (lupus) Review of Systems - Review of Systems Constitutional: reports: No Symptoms Eyes: reports: No Symptoms HENT: reports: No Symptoms Neck: reports: No Symptoms Cardiovascular: reports: No Symptoms Respiratory: reports: No Symptoms Gastrointestinal: reports: Bloating, Nausea. denies: Abdominal Pain, Constipation, Dysphagia, Vomiting, Vomiting Blood Genitourinary: reports: No Symptoms Breasts: reports: No Symptoms Reported Musculoskeletal: reports: No Symptoms Integumentary: reports: No Symptoms Neurological: reports: Dizziness, Weakness Endocrine: reports: No Symptoms Hematology/Lymphatic: reports: No Symptoms Psychiatric: reports: No Symptoms Pain Intensity: 0 Physical Exam Vital Signs: Vital Signs Temperature 98.5 F 09/23/17 00:25 Pulse Rate 78 09/23/17 00:25 Respiratory Rate 16 09/23/17 00:25 Blood Pressure 157/78 09/23/17 00:25 O2 Sat by Pulse Oximetry (%) 100 09/23/17 00:25 Constitutional: Yes: Well Nourished, No Distress, Calm Eyes: Yes: WNL, Conjunctiva Clear, EOM Intact HENT: Yes: WNL, Atraumatic, Normocephalic Neck: Yes: WNL, Supple, Trachea Midline Cardiovascular: Yes: WNL, Regular Rate and Rhythm Respiratory: Yes: WNL, Regular, CTA Bilaterally Gastrointestinal: Yes: Normal Bowel Sounds. No: Abdomen, Obese, Distention, Hernia, Melena, Palpable Mass, Pulsatile Mass, Rectal Bleeding, Tenderness, Tenderness, Epigastrium, Tenderness, Rebound, Vomiting ...Rectal Exam: Yes: Deferred Renal/: Yes: WNL Breast(s): Yes: WNL Musculoskeletal: Yes: WNL Extremities: Yes: WNL Edema: Yes Edema: LLE: Trace, RLE: Trace Peripheral Pulses WNL: Yes Integumentary: Yes: WNL Neurological: Yes: WNL, Alert, Oriented ...Motor Strength: WNL Psychiatric: Yes: WNL, Alert, Oriented Labs: CBC, BMP 09/22/17 15:00 09/22/17 16:50 Imaging - Results Chest X-ray: Report Reviewed (clear) Problem List - Problems (1) Acute blood loss anemia Code(s): D62 - ACUTE POSTHEMORRHAGIC ANEMIA (2) Cirrhosis Code(s): K74.60 - UNSPECIFIED CIRRHOSIS OF LIVER (3) GIB (gastrointestinal bleeding) Code(s): K92.2 - GASTROINTESTINAL HEMORRHAGE, UNSPECIFIED Qualifiers: GI bleed type/associated pathology: melena Qualified Code(s): K92.1 - Melena (4) Hyponatremia Code(s): E87.1 - HYPO-OSMOLALITY AND HYPONATREMIA Assessment/Plan This is a 77 yo woman admitted to ICU for further management and evaluation of black tarry stool most likely Upper GIB in the setting of cirrhosis ?portal HTN vs. bleeding varices given hx vs. malignancy given duodenal mass on recent CT vs. PUD. Plan: -maintain large bore PIVs -transfuse PRBC -trend CBC and coags -NPO except meds -Octrotide drip -Protonix drip ordered -F/u w/ Dr. padilla re: EGD discussions/ plan -trend creat (adm creat 1.1) BETHEL Palacio- Pulm Critical Care
[2017-09-23 02:26] LABS: URINE APPEARANCE CLEAR; URINE BILIRUBIN NEGATIVE (NEGATIVE); URINE BLOOD NEGATIVE (NEGATIVE); URINE COLOR LTYELLOW; URINE GLUCOSE (UA) NEGATIVE (NEGATIVE); URINE KETONE TRACE (NEGATIVE); URINE LEUK ESTERASE NEGATIVE (NEGATIVE); URINE NITRITE NEGATIVE (NEGATIVE); URINE PROTEIN NEGATIVE (NEGATIVE); URINE UROBILINOGEN NEGATIVE mg/dL (0.2-1.0)
[2017-09-23] MEDS ORDERED: PT OWN MED DRAWER 7, Y5N ONE ×6 (06:13→18:44)
[2017-09-23 06:49] LABS: ALBUMIN 2.7 g/dl (3.4-5.0); ANION GAP 12 (8-16); BLOOD UREA NITROGEN 31 mg/dL (7-18); CALCIUM 8.2 mg/dL (8.5-10.1); CHLORIDE 101 mmol/L (98-107); CO2 23 mmol/L (21-32); CREATININE 1.1 mg/dL (0.55-1.02); POTASSIUM 3.6 mmol/L (3.5-5.1); SGOT/AST 38 U/L (15-37); SGPT/ALT 12 U/L (12-78); SODIUM 136 mmol/L (136-145)
[2017-09-23 06:50] LABS: ALK PHOS 199 U/L (45-117); TOT PROT 6.5 g/dl (6.4-8.2)
[2017-09-23 06:53] LABS: GLUCOSE,RANDOM 129 mg/dL (74-106)
[2017-09-23] MEDS ORDERED: LEVOTHYROXINE NA 50 MCG TABLET (FP) PO SCH (07:00)
--- NOTE | 2017-09-23 07:07 | PN ---
Progress Note, Physician History of Present Illness: 77 YOF with h/o cirrhosis, esophageal varices s/p clipping, colon CA s/p resection, multiple EGD and colonoscopies (by Drs. Willard and Valerie), anemia (baseline Hgb 9-10), SHARITA, Whitfield's esophagus, and hypothyroidism, presented to ED afternoon of 09/22 with black tarry stool, nausea and upper abdominal discomfort. She denies recent EtOH use. She normally takes Protonix. VS wnl at that time, FOBT negative (but reportedly dark stool on SASHA), Hgb 6.8, INR 1.05, Dr. Jaycob Becerra saw patient, octreotide bolus&drip and protonix drip ordered, patient transfused pRBC x2 units, then patient admitted to Dr. Navjot Segura. Subjective: Patient notes mild lower abdominal gas-like pain which is relieved if she is able to pass gas. One small BM this morning which was dark. Intake/Output: In: 732cc Out: 200cc Net: 532cc BM: One this AM, several yesterday - Current Medication List Current Medications: Active Medications Octreotide Acetate 1,200 mcg/ (Dextrose) 500 mls @ 20.83 mls/hr IVPB ASDIR KARL PRN Reason: 50 MCG/HR Last Admin: 09/22/17 18:00 Dose: 20.83 mls/hr Pantoprazole Sodium 160 mg/ (Dextrose) 290 mls @ 14.5 mls/hr IVPB Q20H KARL Last Admin: 09/22/17 18:00 Dose: 14.5 mls/hr Levothyroxine Sodium (Synthroid Injection -) 50 mcg IVPUSH DAILY [facility] - Objective Vital Signs: Vital Signs Temperature 98.2 F 09/23/17 06:00 Pulse Rate 67 09/23/17 06:00 Respiratory Rate 17 09/23/17 06:00 Blood Pressure 162/66 09/23/17 06:00 O2 Sat by Pulse Oximetry (%) 100 09/23/17 00:25 Constitutional: Yes: Well Nourished, No Distress, Calm Eyes: Yes: Conjunctiva Clear, EOM Intact HENT: Yes: Atraumatic, Normocephalic Neck: Yes: Supple, Trachea Midline Cardiovascular: Yes: Regular Rate and Rhythm Respiratory: Yes: Regular, CTA Bilaterally Gastrointestinal: Yes: Normal Bowel Sounds, Soft, Other (minimal suprapubic tenderness stated d/t gas) ...Rectal Exam: Yes: Other (small external hemorrhoid, no active bleeding) Musculoskeletal: Yes: WNL Extremities: Yes: WNL Edema: No Integumentary: Yes: WNL. No: Jaundice Neurological: Yes: WNL, Alert, Oriented. No: Asterixis Psychiatric: Yes: WNL, Alert, Oriented Labs: CBC, BMP 09/23/17 05:35 INR, PTT INR 1.05 (0.82-1.09) 09/22/17 15:00 Assessment/Plan 77 YOF with h/o cirrhosis, esophageal varices s/p clipping, colon CA s/p resection, multiple EGD and colonoscopies (by Drs. Willard and Valerie), anemia (baseline Hgb 9-10), SAHRITA, Whitfield's esophagus, and hypothyroidism, presented to ED afternoon of 09/22 with black tarry stool, nausea and upper abdominal discomfort. She denies recent EtOH use. She normally takes Protonix. VS wnl at that time, FOBT negative (but reportedly dark stool on SASHA), Hgb 6.8, INR 1.05, Dr. Jaycob Becerra saw patient, octreotide bolus&drip and protonix drip ordered, patient transfused pRBC x2 units, then patient admitted to Dr. Navjot Segura. GI #Melena. Most likely UGIB, specifically most likely bleeding varices. Possible alternate etiology PUD or malignancy (as Pt had colon CA in the past now s/p resection). Patient denies recent fever, lymphadenopathy, night sweats. Did have 5 lb weight loss in the past month or so but had been hospitalized for UGIB in August and subsequently was on liquid diet until a week ago -GI following -Patient wishes to hold off on EGD until she can speak with her GI doctor ( Valerie) -Continue ostreotide and protonix drip -Trend BUN/Cr and H/H (recheck CBCD this afternoon) -Patient to have endoscopy either tomorrow or Friday -NPO for now per GI -Start D5-1/2 NS at 50cc/hr HEME #Anemia, worsened from baseline. ED Hgb was 6.8, family notes normal baseline for her is 9-10. Most likely acute blood loss anemia. Patient is s/p pRBC transfusion x2 units night of 09/22. -Monitor H/H -Transfuse prn for Hgb<7.0 or symptomatic -Monitor for transfusion reaction FEN/GI #Hyponatremia, mild, resolved. -Monitor CMP #Cirrhosis, chronic. Associated varices previously clipped. Previously had been speculated to be SAMPSON. Patient denies h/o hepatitis or EtOH use. -Continue octreotide per GI recs PPX GI: Protonix and octreotide drip DVT: SCDs DISPO: Continued ICU care
[2017-09-23 08:10] LABS: HEMATOCRIT 28.2 % (32.4-45.2); HEMOGLOBIN 9.7 GM/dL (10.7-15.3); MCH 29.2 pg (25.7-33.7); MCHC 34.5 g/dl (32.0-36.0); MEAN CELL VOLUME 84.8 fl (80-96); MEAN PLT VOLUME 8.9 fl (7.5-11.1); PLATELET COUNT 144 K/MM3 (134-434); RBC 3.32 M/mm3 (3.60-5.2); RDW 14.5 % (11.6-15.6); WHITE BLOOD COUNT 7.2 K/mm3 (4.0-10.0)
[2017-09-23] MEDS ORDERED: LEVOTHYROXINE SODIUM 100 MCG VIAL IVPUSH SCH ×2 (10:00→10:11)
--- NOTE | 2017-09-23 10:19 | PN ---
GI Progress Note Subjective: Patient describes small dark BM this morning Denies abdominal pain S/P 2 U PRBC - Objective Vital Signs: Vital Signs Temperature 98.2 F 09/23/17 06:00 Pulse Rate 64 09/23/17 09:00 Respiratory Rate 22 09/23/17 09:00 Blood Pressure 152/64 09/23/17 09:00 O2 Sat by Pulse Oximetry (%) 100 09/23/17 08:04 Constitutional: Calm Eyes: No: Sclera Icterus Cardiovascular: Yes: Regular Rate and Rhythm Respiratory: Yes: CTA Bilaterally Gastrointestinal Inspection: No: Distention ...Auscultate: Yes: Normoactive Bowel Sounds ...Palpate: No: Hepatomegaly, Tenderness ...Percussion: No: Tympanitic Edema: No (No LE edema) Neurological: Yes: Alert, Oriented Labs: CBC, BMP 09/23/17 05:35 09/23/17 05:35 INR, PTT INR 1.05 (0.82-1.09) 09/22/17 15:00 Hepatic Panel Total Bilirubin 1.0 mg/dL (0.2-1.0) D 09/23/17 05:35 AST 38 U/L (15-37) H 09/23/17 05:35 ALT 12 U/L (12-78) 09/23/17 05:35 Alkaline Phosphatase 199 U/L (45-117) H 09/23/17 05:35 Albumin 2.7 g/dl (3.4-5.0) L 09/23/17 05:35 Problem List - Problems (1) Melena Assessment/Plan: Monitor H/H For possible EGD +/- banding tomorrow Octreotide infusion Protonix infusion Code(s): K92.1 - MELENA
--- NOTE | 2017-09-23 10:26 | HP ---
Admitting History and Physical - Primary Care Physician PCP: Navjot Segura - Admission Chief Complaint: Black Stools History of Present Illness: Pt with significant Hx/o Colon Ca ans s/p resection, liver cirrhosi and esophageal varices, Barretts esophagus, noticed to have black stool the night before coming to ER; in ER she was found to have Hb of 6.8. Pt was admitted, started on IV Protonix, IV Octreotide, PRBC were ordered. 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 SAMPSON), Cholelithiasis, Other (ASCITES POST SURGERY, HYPOALBUMINEMIA) Renal/: Yes: Renal Failure (resolved) Heme/Onc: Yes: Anemia Infectious Disease: Yes: Other (INTRAABDOMINAL ABSCESS POST SURGERY) Endocrine: Yes: Hyperthyroidism (treated with RAIU and now hypothyroid, recent benign biopsy) Dermatology: Yes: Cellulitis - Past Surgical History Past Surgical History: Yes: Colectomy, Colonoscopy, (C section x 2), Oopherectomy, Upper Endoscopy - Smoking History Smoking history: Never smoked Have you smoked in the past 12 months: No If you are a former smoker, when did you quit?: 50 YEARS AGO - Alcohol/Substance Use Hx Alcohol Use: No History of Substance Use: reports: None - Social History ADL: Independent History of Recent Travel: No Home Medications - Allergies Allergies/Adverse Reactions: Allergies Allergy/AdvReac Type Severity Reaction Status Date / Time No Known Allergies Allergy Verified 09/22/17 11:48 - Home Medications Home Medications: Ambulatory Orders Levothyroxine [Synthroid -] 50 mcg PO DAILY@0700 tablet 05/25/17 Multivit-Min/Iron/Folic/Lutein [Centrum Silver Women Tablet] 1 each PO DAILY Pantoprazole Sodium [Protonix -] 40 mg PO BID 09/22/17 Family Disease History - Family Disease History Family Disease History: CA: Father (lung cancer), Mother (ovarian cancer), Brother (lung cancer), Other: Son, Daughter (lupus) Review of Systems - Review of Systems Constitutional: denies: Chills, Fever Eyes: denies: Blurred Vision, Double Vision HENT: denies: Difficult Swallowing, Ear Discharge, Ear Pain, Throat Pain Neck: denies: Pain on Movement, Stiffness Cardiovascular: denies: Chest Pain, Palpitations Respiratory: denies: Cough, SOB, Wheezing Gastrointestinal: reports: Bloating. denies: Abdominal Pain, Diarrhea, Vomiting Genitourinary: denies: Burning, Discharge, Frequency Musculoskeletal: denies: Back Pain, Joint Swelling, Muscle Pain Integumentary: denies: Bruising, Eczema, Rash Neurological: denies: Change in LOC, Change in Speech Endocrine: reports: Excessive Sweating. denies: Intolerance to Cold Hematology/Lymphatic: denies: Easily Bruised, Excessive Bleeding Psychiatric: denies: Anxiety, Depression Physical Examination Vital Signs: Vital Signs Temperature 98.2 F 09/23/17 06:00 Pulse Rate 64 09/23/17 09:00 Respiratory Rate 22 09/23/17 09:00 Blood Pressure 152/64 09/23/17 09:00 O2 Sat by Pulse Oximetry (%) 100 09/23/17 08:04 Constitutional: Yes: No Distress, Calm Eyes: Yes: Conjunctiva Clear HENT: No: Pharyngeal Erythema, Rhinnorhea Neck: Yes: Trachea Midline. No: Lymphadenopathy Cardiovascular: Yes: Regular Rate and Rhythm, S1, S2 Respiratory: Yes: Regular, CTA Bilaterally. No: Rales Gastrointestinal: Yes: Normal Bowel Sounds, Soft. No: Tenderness ...Rectal Exam: Yes: Deferred Renal/: Yes: Other (deferred). No: CVA Tenderness - Left, CVA Tenderness - Right Musculoskeletal: No: Back Pain, Joint Swelling, Muscle Pain Extremities: No: Cold, Cool Edema: No Integumentary: No: Bruising, Rash Neurological: Yes: Alert, Oriented, Other (symmeteric examination in UE/ LE/ face) Psychiatric: Yes: Alert, Oriented Labs: CBC, BMP 09/23/17 05:35 09/23/17 05:35 Imaging - Results Chest X-ray: Report Reviewed Problem List - Problems (1) GIB (gastrointestinal bleeding) Code(s): K92.2 - GASTROINTESTINAL HEMORRHAGE, UNSPECIFIED Qualifiers: GI bleed type/associated pathology: melena Qualified Code(s): K92.1 - Melena (2) Esophageal varices Code(s): I85.00 - ESOPHAGEAL VARICES WITHOUT BLEEDING (3) Anemia Code(s): D64.9 - ANEMIA, UNSPECIFIED Qualifiers: Anemia type: unspecified type Qualified Code(s): D64.9 - Anemia, unspecified (4) Chronic kidney disease Code(s): N18.9 - CHRONIC KIDNEY DISEASE, UNSPECIFIED Qualifiers: Chronic kidney disease stage: stage 2 (mild) Qualified Code(s): N18.2 - Chronic kidney disease, stage 2 (mild) (5) Cirrhosis Code(s): K74.60 - UNSPECIFIED CIRRHOSIS OF LIVER (6) Esophageal varices determined by endoscopy Code(s): I85.00 - ESOPHAGEAL VARICES WITHOUT BLEEDING (7) Hypothyroidism Code(s): E03.9 - HYPOTHYROIDISM, UNSPECIFIED Qualifiers: Hypothyroidism type: unspecified Qualified Code(s): E03.9 - Hypothyroidism , unspecified (8) Hyponatremia Code(s): E87.1 - HYPO-OSMOLALITY AND HYPONATREMIA Assessment/Plan Admit to ICU IV Octreotide IV Protonix GI consult -appreciated; case was d/w Dr. Nory Camilo, for Endoscopy in AM. NPO Serial labs AM labs Case was d/w pt and pt's dg ( at bed side); both are hesitant about EDG; importance of EGD was reviewed with both; risks associated with anemia were reviewed; all questions were answered. Time spent for admission and coordination of care: over 85 minutes.
[2017-09-23] MEDS: PANTOPRAZOLE SODIUM 160 MG in DEXTROSE 5%-WATER - 290 ML IVPB SCH (12:19)
--- NOTE | 2017-09-23 12:58 | EKG ---
Test Reason : Blood Pressure : / mmHG Vent. Rate : 075 BPM Atrial Rate : 075 BPM P-R Int : 114 ms QRS Dur : 082 ms QT Int : 420 ms P-R-T Axes : 010 -33 022 degrees QTc Int : 469 ms NORMAL SINUS RHYTHM LEFT AXIS DEVIATION LOW VOLTAGE QRS CANNOT RULE OUT ANTERIOR INFARCT (CITED ON OR BEFORE 17-MAR-2017) ABNORMAL ECG Confirmed by Mike Koo MD ([id number]) on 09/23/2017 12:58:13 PM Referred By: Confirmed By:Mike Koo MD
[2017-09-23 19:06] LABS: HEMATOCRIT 27.8 % (32.4-45.2); HEMOGLOBIN 9.5 GM/dL (10.7-15.3); MCH 29.2 pg (25.7-33.7); MCHC 34.1 g/dl (32.0-36.0); MEAN CELL VOLUME 85.7 fl (80-96); PLATELET COUNT 180 K/MM3 (134-434); RBC 3.24 M/mm3 (3.60-5.2); RDW 14.5 % (11.6-15.6); WHITE BLOOD COUNT 9.3 K/mm3 (4.0-10.0)
[2017-09-23] MEDS: SIMETHICONE 40 MG/0.6 ML BOTTLE PO PRN (19:27)
[2017-09-23] MEDS: OCTREOTIDE ACETATE 1,200 MCG in DEXTROSE 5%-WATER - 488 ML IVPB SCH (19:32)
--- NOTE | 2017-09-23 21:33 | PN ---
Progress Note (short form) - Note Progress Note: GI NOte: Dr. Becerra's coverage consultaton and earlier note today is appreciated. Last night Marah informed me that she would like for me to assume her GI care. I had advised her to return to Dr. Willard's care during her last visit but she has changed her mind. I reviewed her prvious ebndoscopies , surgical reports and pathology. I discussed EGD in detail with Marah and her son and daughter. I explained my concern about a new periduodenal mass vs collection on her current CT. This could be a hematoma and source of this anemia. The duodenal ramos are thickened and may reflect tumor invasion which I also discussed. I informed them of the potential risks of upper endoscopy which may include rubber band ligation of varices including the risks of perforation and hemorrhage. She has signed an informed consent. I roge attempt this tomorrow if the schedule permits.
[2017-09-24 07:06] LABS: HEMATOCRIT 28.5 % (32.4-45.2); HEMOGLOBIN 9.7 GM/dL (10.7-15.3); MCH 28.9 pg (25.7-33.7); MCHC 33.9 g/dl (32.0-36.0); MEAN CELL VOLUME 85.3 fl (80-96); MEAN PLT VOLUME 7.7 fl (7.5-11.1); PLATELET COUNT 184 K/MM3 (134-434); RBC 3.34 M/mm3 (3.60-5.2); RDW 14.7 % (11.6-15.6); WHITE BLOOD COUNT 8.9 K/mm3 (4.0-10.0)
[2017-09-24 07:25] LABS: INR 1.06 (0.82-1.09)
[2017-09-24 07:28] LABS: ACTIVATED PTT 29.7 SECONDS (26.9-34.4)
[2017-09-24 07:58] LABS: ALBUMIN 2.9 g/dl (3.4-5.0); ANION GAP 10 (8-16); BLOOD UREA NITROGEN 29 mg/dL (7-18); CALCIUM 7.7 mg/dL (8.5-10.1); CHLORIDE 99 mmol/L (98-107); CO2 23 mmol/L (21-32); CREATININE 1.2 mg/dL (0.55-1.02); GLUCOSE,RANDOM 124 mg/dL (74-106); LDH 323 U/L (84-246); POTASSIUM 3.4 mmol/L (3.5-5.1); SGOT/AST 38 U/L (15-37); SGPT/ALT 12 U/L (12-78); SODIUM 132 mmol/L (136-145)
[2017-09-24 08:02] LABS: ALK PHOS 190 U/L (45-117); BILIRUBIN,TOTAL 0.7 mg/dL (0.2-1.0); TOT PROT 6.7 g/dl (6.4-8.2)
--- NOTE | 2017-09-24 09:29 | PN ---
Progress Note (short form) - Note Progress Note: Oncology Note: Brief HPI: Known to us from 04/2017. In 04/2017 was admitted anemia found to have colon mass and was s/p /p right hemicolectomy for a hepatic flexure carcinoma with local lymphatic spread, due to her high risk features chemo was considered at that time, but post surgery, she has multiple hospitalizations including for abscess requiring multiple drains and subsequently developed renal failure and anasarca. recently, she had admissions for GIB, s/p EGD in 08/2017 and now again admitted with black tarry stools. Her CT scan was reviewed from before and from this admission, and did not have evidence of any mets in 05/2017 , but now has a possible "mass" near the duodenal region for which she underwent endoscopic procedure again today, for which results are pending, but 's note reviewed. She also has h/o cirrhosis/Portal HTN/Whitfield's We were consulted for the known hx of colon ca and also now with a possible mass. Patient is seen and examined. Just returned from the procedure. Last Vital Signs Temp Pulse Resp BP Pulse Ox 98.2 F 88 14 173/63 98 09/24/17 06:00 09/24/17 08:00 09/24/17 09:00 09/24/17 08:00 09/24/17 09:00 CBC, BMP 09/24/17 06:45 09/24/17 06:45 Current Medications Generic Name Dose Route Start Last Admin Trade Name Freq PRN Reason Stop Dose Admin Octreotide Acetate 1,200 mcg/ 500 mls @ 20.83 mls/hr 09/22/17 17:00 09/23/17 19:32 Dextrose IVPB Not Given ASDIR KARL 50 MCG/HR Pantoprazole Sodium 160 mg/ 290 mls @ 14.5 mls/hr 09/22/17 17:00 09/23/17 12: 19 Dextrose IVPB 14.5 mls/hr Q20H KARL Administration Levothyroxine Sodium 50 mcg 09/23/17 10:11 09/24/17 06:24 Synthroid Injection - IVPUSH Not Given DAILY@0700 KARL Simethicone 40 mg 09/23/17 16:45 09/23/17 19:27 Mylicon Liquid - PO 40 mg QID PRN Administration PAIN Chart reviewed in detail. GI/EGD noted Likely recurrent Colon Ca. mass bleeding/Obstruction, will d/w path, will need to consider ?RT. supportive transfusions Multi-disciplinary discussion to be held will d/w daughter.
--- NOTE | 2017-09-24 10:02 | PN ---
Progress Note, Physician Chief Complaint: chart, tests, labs, events noted s/p ICU admission for UGI bleed s/p PRBC transfusions and IV octreotide seen by ICU team and GI VSS awake alert NAD no bleed currently but had some black stools earlier - Current Medication List Current Medications: Active Medications Octreotide Acetate 1,200 mcg/ (Dextrose) 500 mls @ 20.83 mls/hr IVPB ASDIR KARL PRN Reason: 50 MCG/HR Last Admin: 09/23/17 19:32 Dose: Not Given Pantoprazole Sodium 160 mg/ (Dextrose) 290 mls @ 14.5 mls/hr IVPB Q20H [facility] Last Admin: 09/23/17 12:19 Dose: 14.5 mls/hr Levothyroxine Sodium (Synthroid Injection -) 50 mcg IVPUSH DAILY@0700 [facility] Last Admin: 09/24/17 06:24 Dose: Not Given Potassium Chloride (K-Dur -) 40 meq PO ONCE ONE Stop: 09/24/17 09:30 Simethicone (Mylicon Liquid -) 40 mg PO QID PRN PRN Reason: PAIN Last Admin: 09/23/17 19:27 Dose: 40 mg - Objective Vital Signs: Vital Signs Temperature 98.2 F 09/24/17 06:00 Pulse Rate 61 09/24/17 09:37 Respiratory Rate 14 09/24/17 09:37 Blood Pressure 136/62 09/24/17 09:37 O2 Sat by Pulse Oximetry (%) 98 09/24/17 09:00 Constitutional: Yes: No Distress, Calm Eyes: Yes: Conjunctiva Clear HENT: Yes: Atraumatic Neck: Yes: Supple Cardiovascular: Yes: Regular Rate and Rhythm Respiratory: Yes: CTA Bilaterally Gastrointestinal: Yes: Soft. No: Distention, Tenderness Genitourinary: No: CVA Tenderness - Left, CVA Tenderness - Right Musculoskeletal: No: Joint Stiffness, Joint Swelling Extremities: No: Cold, Cool, Cyanosis Edema: No Integumentary: No: Rash, Venous Stasis Changes Neurological: Yes: WNL, Alert, Oriented ...Motor Strength: WNL Psychiatric: Yes: WNL, Alert, Oriented. No: Agitated Labs: CBC, BMP 09/24/17 06:45 09/24/17 06:45 INR, PTT INR 1.06 (0.82-1.09) 09/24/17 06:45 - ....Imaging Other: Report Reviewed Assessment/Plan 77 YOF h/o colon CA s/p R hemicolectomy 1 year ago s/p EGD 1 month ago esopahgeal varices, liver cirrhosis admitted with UGI bleed and severe anemia ICU PRBC transfusions IV octreotide f/u CBC further managemnet per GI; repeat EGD, abdomen CT consider surgery eval d/w pt and daughter prognosis guarded DVT PFX TEDs to legs, SCDs, pt does not want them for now can not use sq heparin b/o active GI bleed and anemia; d/w pt risks of clotting (cancer hypercoag state) and bleeding with sq heparin, she is aware falls PFX pt advised do not get OOB alone decubs PFX; pt is ambulatory, walks to bathroom t time 40 min
[2017-09-24] MEDS ORDERED: POTASSIUM CHLORIDE TABS 20 MEQ TABLET.ER (FP) PO ONE ×2 (10:30→13:00)
[2017-09-24] MEDS: PANTOPRAZOLE SODIUM 160 MG in DEXTROSE 5%-WATER - 290 ML IVPB SCH (10:38)
--- NOTE | 2017-09-24 11:24 | PN ---
Progress Note (short form) - Note Progress Note: GI Procedure NOte: Please see scanned EGD report. Bleeding is emanating from a partially obstructing neoplasm in the 2nd portion of the duodenum which most likely represents invasion by recurrent colon cancer. Only a single biopsy was taken which may not be diagnostic as it could not be well directed into the tumor. The findings were discussed with the daughter and Dr Segura.
[2017-09-24 12:36] LABS: AMYLASE 44 U/L (25-115); LIPASE 92 U/L (73-393)
--- NOTE | 2017-09-24 12:49 | PN ---
Teaching Attending Note Name of Resident: Emperatriz Hardwick ATTENDING PHYSICIAN STATEMENT I saw and evaluated the patient. I reviewed the resident's note and discussed the case with the resident. I agree with the resident's findings and plan as documented. SUBJECTIVE: Pt seen and examined in the ICU. s/p EGD this AM showing bleeding likely from duodenal mass. Denies shortness of breath or chest pain. No abdominal pain, nausea or vomiting. OBJECTIVE: Last Vital Signs Temp Pulse Resp BP Pulse Ox 98.3 F 62 20 159/56 98 09/24/17 10:00 09/24/17 10:00 09/24/17 10:00 09/24/17 10:00 09/24/17 09:00 Intake & Output 09/21/17 09/22/17 09/23/17 09/24/17 23:59 23:59 23:59 23:59 Intake Total 1152.4 623.6 Output Total 1500 Balance -347.6 623.6 Weight 58.967 kg 54.613 kg 54.658 kg Gen: NAD at rest Heart: RRR Lung: decreased breath sounds at the bases Abd: soft, nontender Ext: no edema CBC, BMP 09/24/17 06:45 09/24/17 06:45 Active Medications Octreotide Acetate 1,200 mcg/ (Dextrose) 500 mls @ 20.83 mls/hr IVPB ASDIR KARL PRN Reason: 50 MCG/HR Last Admin: 09/23/17 19:32 Dose: Not Given Levothyroxine Sodium (Synthroid Injection -) 50 mcg IVPUSH DAILY@0700 [facility] Last Admin: 09/24/17 06:24 Dose: Not Given Pantoprazole Sodium (Protonix -) 40 mg PO BID [facility] Simethicone (Mylicon Liquid -) 40 mg PO QID PRN PRN Reason: PAIN Last Admin: 09/23/17 19:27 Dose: 40 mg ASSESSMENT AND PLAN: GI Bleed Acute Blood Loss Anemia 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
[2017-09-24] MEDS ORDERED: OCTREOTIDE ACETATE 1,200 MCG in DEXTROSE 5%-WATER - 488 ML IVPB SCH ×2 (15:46→21:23)
[2017-09-24] MEDS ORDERED: SIMETHICONE 40 MG/0.6 ML BOTTLE PO PRN (15:46)
[2017-09-24] MEDS ORDERED: PT OWN MED DRAWER 7, Y5N ONE (17:16)
[2017-09-24] MEDS: SIMETHICONE 40 MG/0.6 ML BOTTLE PO PRN ×2 (19:07→23:30)
[2017-09-24] MEDS: PANTOPRAZOLE 40 MG TABLET (FP) PO SCH (21:32)
[2017-09-24] MEDS ORDERED: PANTOPRAZOLE 40 MG TABLET (FP) PO SCH (22:00)
[2017-09-25] MEDS: SIMETHICONE 40 MG/0.6 ML BOTTLE PO PRN (05:34)
[2017-09-25 06:02] LABS: BASO % 0.6 % (0-2.0); EOS % 2.1 % (0-4.5); HEMATOCRIT 28.3 % (32.4-45.2); HEMOGLOBIN 9.8 GM/dL (10.7-15.3); LYMPH % 7.6 % (8-40); MCH 29.7 pg (25.7-33.7); MCHC 34.8 g/dl (32.0-36.0); MEAN CELL VOLUME 85.4 fl (80-96); MEAN PLT VOLUME 8.2 fl (7.5-11.1); MONO % 9.7 % (3.8-10.2); PLATELET COUNT 176 K/MM3 (134-434); RBC 3.31 M/mm3 (3.60-5.2); RDW 14.4 % (11.6-15.6); WHITE BLOOD COUNT 7.3 K/mm3 (4.0-10.0)
[2017-09-25 06:29] LABS: ALBUMIN 2.9 g/dl (3.4-5.0); ANION GAP 10 (8-16); BLOOD UREA NITROGEN 20 mg/dL (7-18); CALCIUM 8.2 mg/dL (8.5-10.1); CHLORIDE 99 mmol/L (98-107); CO2 23 mmol/L (21-32); CREATININE 1.2 mg/dL (0.55-1.02); POTASSIUM 3.8 mmol/L (3.5-5.1); SGOT/AST 35 U/L (15-37); SGPT/ALT 12 U/L (12-78); SODIUM 132 mmol/L (136-145)
[2017-09-25 06:31] LABS: ALK PHOS 207 U/L (45-117); BILIRUBIN,TOTAL 0.8 mg/dL (0.2-1.0); TOT PROT 6.8 g/dl (6.4-8.2)
[2017-09-25 06:32] LABS: GLUCOSE,RANDOM 126 mg/dL (74-106)
--- NOTE | 2017-09-25 06:37 | PN ---
Progress Note, Physician Chief Complaint: no more bleeding EGD and US noted duodenal mass; needs surgical and heme onc eval d/w pt and daughter - Current Medication List Current Medications: Active Medications Octreotide Acetate 1,200 mcg/ (Dextrose) 500 mls @ 20.83 mls/hr IVPB ASDIR KARL PRN Reason: 50 MCG/HR Last Admin: 09/24/17 21:32 Dose: 20.83 mls/hr Levothyroxine Sodium (Synthroid Injection -) 50 mcg IVPUSH DAILY@0700 KARL Pantoprazole Sodium (Protonix -) 40 mg PO BID KARL Last Admin: 09/24/17 21:32 Dose: 40 mg Simethicone (Mylicon Liquid -) 40 mg PO Q6H PRN PRN Reason: PAIN Last Admin: 09/25/17 05:34 Dose: 40 mg - Objective Vital Signs: Vital Signs Temperature 98 F 09/25/17 03:09 Pulse Rate 67 09/25/17 03:09 Respiratory Rate 18 09/25/17 03:09 Blood Pressure 162/86 09/25/17 03:09 O2 Sat by Pulse Oximetry (%) 98 09/24/17 22:00 Constitutional: Yes: No Distress, Calm Eyes: Yes: Conjunctiva Clear HENT: Yes: Atraumatic Neck: Yes: Supple Cardiovascular: Yes: Regular Rate and Rhythm Respiratory: Yes: CTA Bilaterally Gastrointestinal: Yes: Soft. No: Distention, Tenderness Genitourinary: No: CVA Tenderness - Left, CVA Tenderness - Right Musculoskeletal: No: Joint Stiffness, Joint Swelling Extremities: No: Cold, Cool, Cyanosis Edema: No Integumentary: No: Rash, Venous Stasis Changes Neurological: Yes: WNL, Alert, Oriented ...Motor Strength: WNL Psychiatric: Yes: WNL, Alert, Oriented. No: Agitated, Suicidal Ideation Labs: CBC, BMP 09/25/17 05:22 INR, PTT INR 1.06 (0.82-1.09) 09/24/17 06:45 - ....Imaging Other: Report Reviewed Assessment/Plan 77 YOF h/o colon CA s/p R hemicolectomy 1 year ago s/p EGD 1 month ago esophageal varices, liver cirrhosis admitted with UGI bleed and severe anemia ICU s/p PRBC transfusions IV octreotide f/u CBC IM B12 for low B12; will need iron po further managemnet per GI; consider repeat EGD with pediatric tube to get sample tissue for pathology (d/w GI - not able to get good samples b/o duodenal obstruction) heme onc and surgery eval d/w pt and daughter prognosis guarded DVT PFX TEDs to legs, SCDs, pt does not want them for now can not use sq heparin b/o active GI bleed and anemia; falls PFX pt advised do not get OOB alone decubs PFX; pt is ambulatory, walks to bathroom t time 40 min
[2017-09-25] MEDS ORDERED: LEVOTHYROXINE SODIUM 100 MCG VIAL IVPUSH SCH (07:00)
[2017-09-25] MEDS ORDERED: amLODIPine BESYLATE 2.5 MG TABLET (FP) ONE (07:41)
[2017-09-25] MEDS ORDERED: PT OWN MED DRAWER 7, Y5N ONE (07:42)
[2017-09-25] MEDS ORDERED: amLODIPine BESYLATE 2.5 MG TABLET (FP) PO ONE (07:45)
[2017-09-25] MEDS: LEVOTHYROXINE SODIUM 100 MCG VIAL IVPUSH SCH (08:03)
[2017-09-25] MEDS: PANTOPRAZOLE 40 MG TABLET (FP) PO SCH ×2 (09:18→21:37)
--- NOTE | 2017-09-25 13:50 | CONS ---
DATE OF CONSULTATION: 09/25/2017 REFERRING PHYSICIAN: Ricarda Padilla MD REASON FOR REFERRAL: Duodenal mass. BRIEF HISTORY: This is a 77-year-old female who approximately a year ago I had operated on for a right colon cancer. At that point, she underwent an extensive resection; she had an extended right hemicolectomy with abdominal wall resection and peeling of the tumor off the duodenum. Her pathology at that time demonstrated 0 out of 22 lymph nodes, she had a perforation, and the tumor exceeded the serosa. Margins of resection on the abdominal wall were negative. Margins of resections proximal and distal were also negative as well. At the time of surgery, it appeared patient had locally advanced cancer. She now presents with anemia, and she underwent recent endoscopy by Dr. Willard in August of this year. The endoscopy did not demonstrate any acute findings. Repeat endoscopy by Dr. Padilla noted a mass at the level of the second portion of the duodenum. Given the location of this mass, biopsies of this were very difficult , and the mass was friable (appeared also to be the source of her melenic stools). Pathology on the biopsy masses pending. At the time of admission, the patient had a hemoglobin of 5 and change. She had no leukocytosis noted. PAST MEDICAL HISTORY: As mentioned above. She has a history of esophageal varices, Whitfield's, cirrhosis as well. PAST SURGICAL HISTORY: As mentioned above. x2, oophorectomy, and multitude of endoscopies. ALLERGIES: None. MEDICATIONS: Refer to chart. SOCIAL HISTORY: Patient does not smoke or drink. PHYSICAL EXAMINATION: Unremarkable. She has very well-healed scars. IMPRESSION/PLAN: Duodenal mass. This is a 77-year-old female with a duodenal mass. There are findings extrinsic as well as intrinsic, and therefore, it is thought that this patient could have a recurrent disease at this time. Pathology is still outstanding. If the pathology demonstrates obvious tumor, the patient should be treated appropriately. If no obvious tumor is identified, consideration should be given for a percutaneous biopsy by Interventional Radiology of the extrinsic mass at the level of the duodenum. In any event, the patient, given her cirrhosis and varices, is not a surgical candidate at this time, and this patient should be managed medically. No acute surgical intervention is offered or needed at this time. Thank you for allowing me to participate in the care of your patient. I will be available on a p.r.n. basis. Roberto BENNETT [id number] cc: MD Irving Pierce DO Orest Kozicky, MD Richard Wu, MD MTDD
--- NOTE | 2017-09-25 15:34 | PATH ---
Surgical Pathology Report Patient Name: PATRICIA ROJAS [facility]. Rec. #: [id number] /Age/Gender: 1940 (Age: 77) / F Account: [id number] Location: ICU [employer] Taken: 09/24/2017 Received: 09/24/2017 Reported: 09/25/2017 Physicians: Roberto Yan M.D. Amara Nandikolla, M.D. Specimen(s) Received BX NEOPLASM 2ND PORTION DUODENUM Clinical History Preoperative diagnosis: CA hepatic flexure, melena Postoperative diagnosis: Hiatal hernia, esophageal varices, portal gastropathy,? Neoplasm in second portion of duodenum Final Diagnosis DUODENUM, SECOND PORTION, NEOPLASM, BIOPSY: SUPERFICIAL FRAGMENTS OF SMALL BOWEL MUCOSA WITH SEVERE ACUTE AND CHRONIC INFLAMMATION, FOCAL ULCERATION AND HEMORRHAGE. Comment: Deeper levels examined. Suggest clinical/radiologic correlation. Prior colon carcinoma s/p resection is noted ([id number]). Findings discussed with Dr. Barnett. Electronically Signed Ana Price M.D. Gross Description Received in formalin, labeled "biopsy neoplasm second portion duodenum" are 4 winkler-brown, irregular portions of soft tissue ranging from 0.1-0.3 cm. in greatest dimension. The specimens are submitted in toto in one cassette. 09/24/201709/24/2017
--- NOTE | 2017-09-25 16:26 | PN ---
GI Progress Note Subjective: For Dr. Padilla: No abdominal pain No melena Pathology from EGD = ulcerated small bowel mucosa - Objective Vital Signs: Vital Signs Temperature 98.3 F 09/25/17 14:00 Pulse Rate 64 09/25/17 14:00 Respiratory Rate 18 09/25/17 14:00 Blood Pressure 146/70 09/25/17 14:00 O2 Sat by Pulse Oximetry (%) 100 09/25/17 09:00 Constitutional: Calm Eyes: No: Sclera Icterus Cardiovascular: Yes: Regular Rate and Rhythm Respiratory: Yes: CTA Bilaterally Gastrointestinal Inspection: No: Distention ...Auscultate: Yes: Normoactive Bowel Sounds ...Palpate: No: Tenderness Edema: No (No LE edema) Neurological: Yes: Alert, Oriented Labs: CBC, BMP 09/25/17 05:22 09/25/17 05:22 INR, PTT INR 1.06 (0.82-1.09) 09/24/17 06:45 Assessment/Plan 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 Padilla. While biopsies unrevealing for malignancy, he will consider repeat EGD with pediatric endoscope and await oncology input. D/C Octrotide continue protonix Problem List - Problems (1) Melena Code(s): K92.1 - MELENA
--- NOTE | 2017-09-25 18:07 | PN ---
Progress Note (short form) - Note Progress Note: Had d/w Ms. León and her daughter re: path findings. Explained that to reevaluate the site and try to obtain further biopsies / get better look at the duodenal site in question, Dr. Padilla wanted to perform repeat EGD with pediatric endoscope for further evaluation. Ms. Pritchard consented for procedure. Problem List - Problems (1) Melena Code(s): K92.1 - MELENA
[2017-09-26] MEDS: LEVOTHYROXINE SODIUM 100 MCG VIAL IVPUSH SCH (06:04)
[2017-09-26 06:07] LABS: CARCINOEMBRYONIC ANTIGEN 2.5 ng/mL (0.0-4.7)
[2017-09-26] MEDS: SIMETHICONE 40 MG/0.6 ML BOTTLE PO PRN (09:13)
[2017-09-26] MEDS: PANTOPRAZOLE 40 MG TABLET (FP) PO SCH ×2 (09:15→21:10)
--- NOTE | 2017-09-26 10:18 | PN ---
Progress Note, Physician Chief Complaint: no GI bleed, counts stable - Current Medication List Current Medications: Active Medications Levothyroxine Sodium (Synthroid Injection -) 50 mcg IVPUSH DAILY@0700 [facility] Last Admin: 09/26/17 06:04 Dose: Not Given Pantoprazole Sodium (Protonix -) 40 mg PO BID [facility] Last Admin: 09/26/17 09:15 Dose: 40 mg Simethicone (Mylicon Liquid -) 40 mg PO Q6H PRN PRN Reason: PAIN Last Admin: 09/26/17 09:13 Dose: 40 mg - Objective Vital Signs: Vital Signs Temperature 97.7 F 09/26/17 02:00 Pulse Rate 66 09/26/17 06:00 Respiratory Rate 18 09/26/17 06:00 Blood Pressure 149/55 09/26/17 06:00 O2 Sat by Pulse Oximetry (%) 100 09/25/17 21:00 Constitutional: Yes: No Distress, Calm Eyes: Yes: Conjunctiva Clear HENT: Yes: Atraumatic Neck: Yes: Supple Cardiovascular: Yes: Regular Rate and Rhythm Respiratory: Yes: CTA Bilaterally Gastrointestinal: Yes: Soft. No: Distention, Tenderness Genitourinary: No: CVA Tenderness - Left, CVA Tenderness - Right Musculoskeletal: No: Joint Stiffness, Joint Swelling Extremities: No: Cold, Cool Edema: No Integumentary: No: Rash, Venous Stasis Changes Neurological: Yes: WNL, Alert, Oriented ...Motor Strength: WNL Psychiatric: Yes: WNL, Alert, Oriented. No: Agitated Labs: CBC, BMP 09/25/17 05:22 09/25/17 05:22 INR, PTT INR 1.06 (0.82-1.09) 09/24/17 06:45 - ....Imaging Other: Report Reviewed Assessment/Plan 77 YOF h/o colon CA s/p R hemicolectomy 1 year ago s/p EGD 1 month ago esophageal varices, liver cirrhosis admitted with UGI bleed and severe anemia ICU s/p PRBC transfusions IV octreotide f/u CBC IM B12 for low B12; will need iron po path pending heme onc and surgery eval d/w pt and daughter prognosis guarded advised DVT PFX TEDs to legs, SCDs, pt still does not want them for now can not use sq heparin b/o active GI bleed and anemia; falls PFX pt advised do not get OOB alone decubs PFX; pt is ambulatory, walks to bathroom
--- NOTE | 2017-09-26 12:50 | PN ---
Progress Note (short form) - Note Progress Note: Patient seen and examined Scheduled for follow up endoscopy with pediatric scope. 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 Last Vital Signs Temp Pulse Resp BP Pulse Ox 97.6 F 60 18 166/66 100 09/26/17 10:00 09/26/17 12:00 09/26/17 12:00 09/26/17 12:00 09/25/17 21:00 HEENT: ROSI, EOM Intact Oropharynx: No thrush, No mucositis, coated tongue Cor: RSR, No murmurs, No gallops Lungs: Clear to P&A Abd: Soft, Normal bowel sounds, No organomegaly, sensitivty in RLQ Ext:No significant edema Skin: No rashes, Integument intact CBC, BMP 09/25/17 05:22 09/25/17 05:22 Current Medications Generic Name Dose Route Start Last Admin Trade Name Freq PRN Reason Stop Dose Admin Levothyroxine Sodium 50 mcg 09/25/17 07:00 09/26/17 06:04 Synthroid Injection - IVPUSH Not Given DAILY@0700 [facility] Pantoprazole Sodium 40 mg 09/24/17 22:00 09/26/17 09:15 Protonix - PO 40 mg BID [facility] Administration Simethicone 40 mg 09/24/17 21:23 09/26/17 09:13 Mylicon Liquid - PO 40 mg Q6H PRN Administration PAIN Impression: 77 year old with history of colon ca , s/p surgery with no post op adjuvant therapy. Course complicated by post op complications. Presents now with GI bleeding , duodenal mass. For biopsy with pediatric scope. Unfortunately , most likely recurrent colon ca. To await biopsy results and then for discussion. about management.
--- NOTE | 2017-09-26 14:24 | PN ---
Progress Note (short form) - Note Progress Note: GI NOte: Please see scanned EGD report. Today I was able to negotiate the scope alongside the friable duodenal neoplasm and obtain multiple biopsies. The tumor is growing semicircumferentially and in some portions occludes 3/4 of the lumen. It spans about 6-7 cm from the descending to the end of the 2nd portion of the duodenum. The ampulla could not be identified. Findings were discussed with Marah, her daughter and her son. Given the findings I will allow full liquids. She will need to be observed in the ICU for bleeding following biopsies of this friable tumor. I await the pathology result.
[2017-09-26 21:58] LABS: BASO % 0.8 % (0-2.0); EOS % 1.8 % (0-4.5); HEMATOCRIT 29.9 % (32.4-45.2); HEMOGLOBIN 10.3 GM/dL (10.7-15.3); LYMPH % 6.9 % (8-40); MCH 29.5 pg (25.7-33.7); MCHC 34.4 g/dl (32.0-36.0); MEAN CELL VOLUME 85.9 fl (80-96); MEAN PLT VOLUME 8.1 fl (7.5-11.1); MONO % 9.7 % (3.8-10.2); NEUT % 80.8 % (42.8-82.8); PLATELET COUNT 218 K/MM3 (134-434); RBC 3.49 M/mm3 (3.60-5.2); RDW 14.9 % (11.6-15.6); WHITE BLOOD COUNT 7.7 K/mm3 (4.0-10.0)
[2017-09-27] MEDS ORDERED: PT OWN MED DRAWER 7, Y5N ONE (03:58)
[2017-09-27] MEDS: LEVOTHYROXINE SODIUM 100 MCG VIAL IVPUSH SCH (06:12)
[2017-09-27 06:47] LABS: BASO % 0.6 % (0-2.0); EOS % 2.2 % (0-4.5); HEMATOCRIT 28.3 % (32.4-45.2); HEMOGLOBIN 9.8 GM/dL (10.7-15.3); LYMPH % 8.2 % (8-40); MCH 29.6 pg (25.7-33.7); MCHC 34.5 g/dl (32.0-36.0); MEAN CELL VOLUME 85.7 fl (80-96); MEAN PLT VOLUME 8.7 fl (7.5-11.1); MONO % 10.4 % (3.8-10.2); NEUT % 78.6 % (42.8-82.8); PLATELET COUNT 220 K/MM3 (134-434); RBC 3.31 M/mm3 (3.60-5.2); RDW 14.9 % (11.6-15.6); RETICULOCYTES 2.66 % (0.5-1.5); WHITE BLOOD COUNT 7.4 K/mm3 (4.0-10.0)
[2017-09-27 07:01] LABS: CHLORIDE 97 mmol/L (98-107); POTASSIUM 3.5 mmol/L (3.5-5.1); SODIUM 132 mmol/L (136-145)
--- NOTE | 2017-09-27 07:12 | PN ---
Progress Note, Physician Chief Complaint: has gas, better with simethicone path nonrevealing will need repeat EGD with smaller tube - Current Medication List Current Medications: Active Medications Cyanocobalamin (Vitamin B12 Injection -) 1,000 mcg IM DAILY [facility] Levothyroxine Sodium (Synthroid Injection -) 50 mcg IVPUSH DAILY@0700 [facility] Last Admin: 09/27/17 06:12 Dose: 50 mcg Pantoprazole Sodium (Protonix -) 40 mg PO BID [facility] Last Admin: 09/26/17 21:10 Dose: 40 mg Simethicone (Mylicon Liquid -) 40 mg PO Q6H PRN PRN Reason: PAIN Last Admin: 09/26/17 09:13 Dose: 40 mg - Objective Vital Signs: Vital Signs Temperature 97.6 F 09/27/17 06:00 Pulse Rate 69 09/26/17 22:00 Respiratory Rate 18 09/27/17 06:00 Blood Pressure 144/62 09/27/17 06:00 O2 Sat by Pulse Oximetry (%) 100 09/25/17 21:00 Constitutional: Yes: No Distress, Calm Eyes: Yes: Conjunctiva Clear HENT: Yes: Atraumatic Neck: Yes: Supple Cardiovascular: Yes: Regular Rate and Rhythm Respiratory: Yes: CTA Bilaterally Gastrointestinal: Yes: Soft. No: Distention, Tenderness Genitourinary: No: CVA Tenderness - Left, CVA Tenderness - Right Musculoskeletal: No: Joint Stiffness, Joint Swelling Extremities: No: Cold, Cool Edema: No Integumentary: No: Rash, Venous Stasis Changes Neurological: Yes: WNL, Alert, Oriented ...Motor Strength: WNL Psychiatric: Yes: WNL, Alert, Oriented. No: Agitated, Suicidal Ideation Labs: INR, PTT INR 1.06 (0.82-1.09) 09/24/17 06:45 - ....Imaging Other: Report Reviewed Assessment/Plan 77 YOF h/o colon CA s/p R hemicolectomy 1 year ago s/p EGD 1 month ago esophageal varices, liver cirrhosis admitted with UGI bleed and severe anemia ICU s/p PRBC transfusions IV octreotide f/u CBC IM B12 for low B12; repeat EGD per GI heme onc and surgery eval d/w pt and daughter prognosis guarded advised DVT PFX TEDs to legs, SCDs, pt still does not want them for now can not use sq heparin b/o active GI bleed and anemia; falls PFX pt advised do not get OOB alone decubs PFX; pt is ambulatory, walks to bathroom
[2017-09-27 07:19] LABS: ALBUMIN 2.8 g/dl (3.4-5.0); ALK PHOS 217 U/L (45-117); ANION GAP 15 (8-16); BILIRUBIN,TOTAL 0.7 mg/dL (0.2-1.0); BLOOD UREA NITROGEN 18 mg/dL (7-18); CALCIUM 8.1 mg/dL (8.5-10.1); CO2 20 mmol/L (21-32); CREATININE 1.1 mg/dL (0.55-1.02); SGOT/AST 28 U/L (15-37); SGPT/ALT 14 U/L (12-78); TOT PROT 6.9 g/dl (6.4-8.2)
[2017-09-27 07:33] LABS: GLUCOSE,RANDOM 111 mg/dL (74-106)
[2017-09-27] MEDS: CYANOCOBALAMIN (VITAMIN B-12) 1000 MCG/1 ML VIAL IM SCH (09:50)
[2017-09-27] MEDS: PANTOPRAZOLE 40 MG TABLET (FP) PO SCH ×2 (09:50→21:01)
--- NOTE | 2017-09-27 16:11 | PN ---
GI Progress Note Subjective: GI NOte: No overt bleeding following the biopsies. No BM but is passing flatus. Tolerated full liquids and wants more. Hb stable. Discussed the case with Dr. Luna as well as Marah's children. - Objective Vital Signs: Vital Signs Temperature 98.5 F 09/27/17 14:00 Pulse Rate 71 09/27/17 14:00 Respiratory Rate 16 09/27/17 14:00 Blood Pressure 143/61 09/27/17 14:00 O2 Sat by Pulse Oximetry (%) 100 09/25/17 21:00 Laboratory Tests 09/22/17 09/22/17 09/22/17 15:00 15:00 16:50 WBC 8.1 D Hgb 6.8 L* D Plt Count Retic Count PT with INR 11.90 H BUN Creatinine Total Bilirubin AST ALT Alkaline Phosphatase 213 H Albumin Carcinoembryonic Ag 09/23/17 09/23/17 09/24/17 05:35 18:00 06:45 WBC 9.3 Hgb 9.5 L 9.7 L Plt Count 180 D Retic Count PT with INR BUN 31 H Creatinine 1.1 H Total Bilirubin 1.0 D AST 38 H ALT 12 Alkaline Phosphatase 199 H Albumin 2.7 L Carcinoembryonic Ag 09/24/17 09/24/17 09/26/17 06:45 06:45 21:30 WBC Hgb 10.3 L Plt Count Retic Count PT with INR BUN Creatinine Total Bilirubin AST ALT Alkaline Phosphatase 190 H Albumin Carcinoembryonic Ag 2.5 09/27/17 09/27/17 06:15 06:15 WBC Hgb 9.8 L Plt Count Retic Count 2.66 H D PT with INR BUN 18 Creatinine 1.1 H Total Bilirubin 0.7 AST ALT Alkaline Phosphatase 217 H Albumin Carcinoembryonic Ag Constitutional: Calm ...Auscultate: Yes: Normoactive Bowel Sounds ...Palpate: Yes: Soft, Other (nontender) Labs: CBC, BMP 09/27/17 06:15 09/27/17 06:15 INR, PTT INR 1.06 (0.82-1.09) 09/24/17 06:45 Problem List - Problems (1) Duodenal mass Assessment/Plan: Continue to suspect recurrence of colon cancer at within the duodenum associated with bleeding and partial duodenal and biliary ( rising alkaline phosphatase) obstruction. Discussed palliative RT and then perhaps chemotherapy with Dr Luna. Await pathology. Will try chopped diet Code(s): K31.89 - OTHER DISEASES OF STOMACH AND DUODENUM (2) GIB (gastrointestinal bleeding) Code(s): K92.2 - GASTROINTESTINAL HEMORRHAGE, UNSPECIFIED Qualifiers: GI bleed type/associated pathology: melena Qualified Code(s): K92.1 - Melena
[2017-09-28] MEDS ORDERED: PT OWN MED DRAWER 7, Y5N ONE (05:22)
[2017-09-28] MEDS: LEVOTHYROXINE SODIUM 100 MCG VIAL IVPUSH SCH (06:00)
[2017-09-28 06:23] LABS: BASO % 0.7 % (0-2.0); EOS % 3.1 % (0-4.5); HEMATOCRIT 26.1 % (32.4-45.2); LYMPH % 11.3 % (8-40); MCH 29.6 pg (25.7-33.7); MCHC 34.4 g/dl (32.0-36.0); MEAN CELL VOLUME 86.1 fl (80-96); MEAN PLT VOLUME 8.4 fl (7.5-11.1); MONO % 11.7 % (3.8-10.2); NEUT % 73.2 % (42.8-82.8); PLATELET COUNT 210 K/MM3 (134-434); RBC 3.03 M/mm3 (3.60-5.2); RDW 15.3 % (11.6-15.6)
[2017-09-28 06:50] LABS: ALBUMIN 2.6 g/dl (3.4-5.0); ANION GAP 11 (8-16); BLOOD UREA NITROGEN 20 mg/dL (7-18); CALCIUM 8.4 mg/dL (8.5-10.1); CHLORIDE 97 mmol/L (98-107); CO2 24 mmol/L (21-32); POTASSIUM 3.7 mmol/L (3.5-5.1); SGOT/AST 29 U/L (15-37); SGPT/ALT 14 U/L (12-78); SODIUM 132 mmol/L (136-145)
[2017-09-28 06:53] LABS: ALK PHOS 235 U/L (45-117); BILIRUBIN,TOTAL 0.4 mg/dL (0.2-1.0); CREATININE 1.1 mg/dL (0.55-1.02); GAMMA GLUTAMYL TRANSPEPTIDASE 118 U/L (5-85); TOT PROT 6.5 g/dl (6.4-8.2)
[2017-09-28 07:01] LABS: GLUCOSE,RANDOM 111 mg/dL (74-106)
--- NOTE | 2017-09-28 07:32 | PN ---
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 d/w pt and daughter; path pending - Current Medication List Current Medications: Active Medications Cyanocobalamin (Vitamin B12 Injection -) 1,000 mcg IM DAILY [facility] Last Admin: 09/27/17 09:50 Dose: 1,000 mcg Levothyroxine Sodium (Synthroid Injection -) 50 mcg IVPUSH DAILY@0700 [facility] Last Admin: 09/28/17 06:00 Dose: 50 mcg Pantoprazole Sodium (Protonix -) 40 mg PO BID [facility] Last Admin: 09/27/17 21:01 Dose: 40 mg Simethicone (Mylicon Liquid -) 40 mg PO Q6H PRN PRN Reason: PAIN Last Admin: 09/26/17 09:13 Dose: 40 mg - Objective Vital Signs: Vital Signs Temperature 98.3 F 09/28/17 04:45 Pulse Rate 62 09/28/17 04:45 Respiratory Rate 12 09/28/17 04:45 Blood Pressure 144/56 09/28/17 04:45 O2 Sat by Pulse Oximetry (%) 100 09/25/17 21:00 Constitutional: Yes: No Distress, Calm Eyes: Yes: Conjunctiva Clear HENT: Yes: Atraumatic Neck: Yes: Supple Cardiovascular: Yes: Regular Rate and Rhythm Respiratory: Yes: CTA Bilaterally Gastrointestinal: Yes: Soft. No: Distention, Tenderness Genitourinary: No: CVA Tenderness - Left, CVA Tenderness - Right Musculoskeletal: No: Joint Stiffness, Joint Swelling Extremities: No: Cold, Cool, Cyanosis Edema: No Integumentary: No: Pressure Ulcer, Rash, Venous Stasis Changes Neurological: Yes: WNL, Alert, Oriented ...Motor Strength: WNL Psychiatric: Yes: WNL, Alert, Oriented. No: Agitated, Suicidal Ideation Labs: CBC, BMP 09/28/17 06:00 09/28/17 06:00 INR, PTT INR 1.06 (0.82-1.09) 09/24/17 06:45 - ....Imaging Other: Report Reviewed Assessment/Plan 77 YOF h/o colon CA s/p R hemicolectomy 1 year ago s/p EGD 1 month ago esophageal varices, liver cirrhosis admitted with UGI bleed and severe anemia, stable f/u CBC IM B12 for low B12; noted EGD, f/u GI; path pending heme onc and surgery f/u d/w pt and daughter prognosis guarded advised DVT PFX TEDs to legs, SCDs can not use sq heparin b/o active GI bleed and anemia; falls PFX pt advised do not get OOB alone decubs PFX; pt is ambulatory, walks to bathroom
[2017-09-28] MEDS: PANTOPRAZOLE 40 MG TABLET (FP) PO SCH ×2 (10:29→21:42)
[2017-09-28] MEDS: CYANOCOBALAMIN (VITAMIN B-12) 1000 MCG/1 ML VIAL IM SCH (10:30)
--- NOTE | 2017-09-28 15:56 | PN ---
GI Progress Note Subjective: GI NOte: Tolerated soft diet but hates the appearance of most entrees. No nausea or vomiting. Has not had a BM in days. Alkaline phosphatase creeping up. - Objective Vital Signs: Vital Signs Temperature 97.8 F 09/28/17 10:00 Pulse Rate 69 09/28/17 10:00 Respiratory Rate 18 09/28/17 10:00 Blood Pressure 123/69 09/28/17 10:00 O2 Sat by Pulse Oximetry (%) 100 09/28/17 08:00 Laboratory Tests 09/27/17 09/27/17 09/28/17 06:15 06:15 06:00 WBC 7.0 Hgb 9.8 L 9.0 L Total Bilirubin GGT Alkaline Phosphatase 217 H 09/28/17 06:00 WBC Hgb Total Bilirubin 0.4 D GGT 118 H D Alkaline Phosphatase 235 H Constitutional: Calm Gastrointestinal Inspection: Yes: Distention ...Auscultate: Yes: Normoactive Bowel Sounds ...Palpate: Yes: Soft, Other (nontender) Labs: CBC, BMP 09/28/17 06:00 09/28/17 06:00 INR, PTT INR 1.06 (0.82-1.09) 09/24/17 06:45 Assessment/Plan Will try soft diet Will start Miralax for constipation Problem List - Problems (1) Duodenal mass Code(s): K31.89 - OTHER DISEASES OF STOMACH AND DUODENUM (2) GIB (gastrointestinal bleeding) Code(s): K92.2 - GASTROINTESTINAL HEMORRHAGE, UNSPECIFIED Qualifiers: GI bleed type/associated pathology: melena Qualified Code(s): K92.1 - Melena
[2017-09-28] MEDS: POLYETHYLENE GLYCOL 3350 119 GM BTL PO SCH (21:44)
[2017-09-29] MEDS: LEVOTHYROXINE SODIUM 100 MCG VIAL IVPUSH SCH (06:09)
--- NOTE | 2017-09-29 07:02 | PN ---
Progress Note, Physician Chief Complaint: feels well no c/o tolerated po regular food; path most likely to be back tomorrow; d/w pt and daughter will DC home after pathology back; if malignant will need f/u with heme onc as outpt - Current Medication List Current Medications: Active Medications Cyanocobalamin (Vitamin B12 Injection -) 1,000 mcg IM DAILY [facility] Last Admin: 09/28/17 10:30 Dose: 1,000 mcg Levothyroxine Sodium (Synthroid Injection -) 50 mcg IVPUSH DAILY@0700 [facility] Last Admin: 09/29/17 06:09 Dose: 50 mcg Pantoprazole Sodium (Protonix -) 40 mg PO BID [facility] Last Admin: 09/28/17 21:42 Dose: 40 mg Polyethylene Glycol (Miralax (For Daily Use) -) 17 gm PO BID [facility] Last Admin: 09/28/17 21:44 Dose: Not Given Simethicone (Mylicon Liquid -) 40 mg PO Q6H PRN PRN Reason: PAIN Last Admin: 09/26/17 09:13 Dose: 40 mg - Objective Vital Signs: Vital Signs Temperature 97.9 F 09/29/17 06:00 Pulse Rate 65 09/29/17 06:00 Respiratory Rate 18 09/29/17 06:00 Blood Pressure 144/60 09/29/17 06:00 O2 Sat by Pulse Oximetry (%) 100 09/28/17 20:33 Constitutional: Yes: No Distress, Calm Eyes: Yes: Conjunctiva Clear HENT: Yes: Atraumatic Neck: Yes: Supple Cardiovascular: Yes: Regular Rate and Rhythm Respiratory: Yes: CTA Bilaterally Gastrointestinal: Yes: Soft. No: Distention, Tenderness Genitourinary: No: CVA Tenderness - Left, CVA Tenderness - Right Musculoskeletal: No: Joint Stiffness, Joint Swelling Extremities: No: Cold, Cool Edema: No Integumentary: No: Rash, Venous Stasis Changes Neurological: Yes: WNL, Alert, Oriented ...Motor Strength: WNL Psychiatric: Yes: WNL, Alert, Oriented. No: Agitated, Suicidal Ideation Labs: CBC, BMP 09/28/17 06:00 09/28/17 06:00 INR, PTT INR 1.06 (0.82-1.09) 09/24/17 06:45 - ....Imaging Other: Report Reviewed Assessment/Plan 77 YOF h/o colon CA s/p R hemicolectomy 1 year ago s/p EGD 1 month ago esophageal varices, liver cirrhosis c shadi path report, GI f/u; DC planning if tolerates food OK will need close heme onc and surgery f/u d/w pt and daughter prognosis guarded advised DVT PFX TEDs to legs, SCDs can not use sq heparin b/o active GI bleed and anemia; falls PFX pt advised do not get OOB alone decubs PFX; pt and daughter do not want home VNS, home PT
[2017-09-29] MEDS ORDERED: PT OWN MED DRAWER 7, Y5N ONE ×2 (09:27→19:30)
[2017-09-29] MEDS: POLYETHYLENE GLYCOL 3350 119 GM BTL PO SCH ×2 (09:46→22:12)
[2017-09-29] MEDS: PANTOPRAZOLE 40 MG TABLET (FP) PO SCH ×2 (09:47→22:10)
[2017-09-29] MEDS: CYANOCOBALAMIN (VITAMIN B-12) 1000 MCG/1 ML VIAL IM SCH (11:20)
--- NOTE | 2017-09-29 15:27 | PN ---
GI Progress Note Subjective: No acute events Had a formed black BM this morning Daughter present at bedside - Objective Vital Signs: Vital Signs Temperature 97.7 F 09/29/17 08:59 Pulse Rate 74 09/29/17 14:46 Respiratory Rate 18 09/29/17 14:46 Blood Pressure 123/49 09/29/17 14:46 O2 Sat by Pulse Oximetry (%) 100 09/29/17 10:00 Constitutional: Calm Eyes: No: Sclera Icterus Cardiovascular: Yes: Regular Rate and Rhythm, Murmur Respiratory: Yes: CTA Bilaterally Gastrointestinal Inspection: No: Distention ...Auscultate: Yes: Normoactive Bowel Sounds ...Palpate: No: Tenderness ...Percussion: No: Tympanitic Edema: No (No LE edema) Neurological: Yes: Alert, Oriented Labs: CBC, BMP 09/28/17 06:00 09/28/17 06:00 INR, PTT INR 1.06 (0.82-1.09) 09/24/17 06:45 Problem List - Problems (1) Duodenal mass Assessment/Plan: Likely source of melena Awaiting path report Diet advanced Code(s): K31.89 - OTHER DISEASES OF STOMACH AND DUODENUM
--- NOTE | 2017-09-29 17:59 | PN ---
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 recently, she had admissions for GIB, s/p EGD in 08/2017 and now again admitted with black tarry stools. Her CT scan was reviewed from before and from this admission, and did not have evidence of any mets in 05/2017 , but now has a possible "mass" near the duodenal region for which she underwent endoscopic procedure again today, for which results are pending. She also has h/o cirrhosis/Portal HTN/[facility] awaiting path report
[2017-09-30] MEDS: LEVOTHYROXINE SODIUM 100 MCG VIAL IVPUSH SCH (06:53)
--- NOTE | 2017-09-30 09:27 | DS ---
Physical Examination Vital Signs: Vital Signs Temperature 97.8 F 09/30/17 07:38 Pulse Rate 66 09/30/17 07:38 Respiratory Rate 20 09/30/17 07:45 Blood Pressure 132/63 09/30/17 07:38 O2 Sat by Pulse Oximetry (%) 100 09/30/17 07:45 Findings/Remarks: felt good but this am felt bloated, did not eat much, no N/V/ pain still wants to go home, will d/w GI if able to eat DC home later today Constitutional: Yes: No Distress, Calm Eyes: Yes: Conjunctiva Clear HENT: Yes: Atraumatic Neck: Yes: Supple Cardiovascular: Yes: Regular Rate and Rhythm Respiratory: Yes: CTA Bilaterally Gastrointestinal: Yes: Soft. No: Distention, Tenderness Renal/: No: CVA Tenderness - Left, CVA Tenderness - Right Musculoskeletal: No: Joint Stiffness, Joint Swelling Extremities: No: Cold, Cool Edema: No Integumentary: No: Rash, Venous Stasis Changes Neurological: Yes: WNL, Alert, Oriented ...Motor Strength: WNL Psychiatric: Yes: WNL, Alert, Oriented. No: Agitated, Suicidal Ideation Labs: CBC, BMP 09/28/17 06:00 09/28/17 06:00 Discharge Summary Reason For Visit: GASTROINTESTINAL BLEEDING Current Active Problems Duodenal mass (Acute) Esophageal varices (Acute) Esophageal varices determined by endoscopy (Acute) Melena (Acute) Procedures: Principal: admitted with UGI bleed and severe anemia Other Procedures: colon CA< duodenal mass; had EGD; path pending. received PRBC , IV octreotide. seen by ONC and surgery Hospital Course: improved with above; F/u as advised Condition: Stable - Instructions Diet, Activity, Other Instructions: f/u PCP and labs CBC CMP in 1-2 weeks check final path report in 1-2 weeks f/u GI, surgery and heme onc in 2-4 weeks further management per ONC falls PFX Referrals: Sayda Segura [Primary Care Provider] - Ricarda Padilla MD [Staff Physician] - Michael Torres MD [Staff Physician] - Luisito Gomez MD [Staff Physician] - Disposition: HOME - Home Medications Comprehensive Discharge Medication List: Ambulatory Orders Levothyroxine [Synthroid -] 50 mcg PO DAILY@0700 tablet 10/22/17 Multivit-Min/Iron/Folic/Lutein [Centrum Silver Women Tablet] 1 each PO DAILY Pantoprazole Sodium [Protonix -] 40 mg PO BID 09/22/17
[2017-09-30] MEDS ORDERED: PT OWN MED DRAWER 7, Y5N ONE (09:40)
[2017-09-30] MEDS: CYANOCOBALAMIN (VITAMIN B-12) 1000 MCG/1 ML VIAL IM SCH (09:41)
[2017-09-30] MEDS: PANTOPRAZOLE 40 MG TABLET (FP) PO SCH ×2 (09:41→21:45)
[2017-09-30] MEDS: POLYETHYLENE GLYCOL 3350 119 GM BTL PO SCH ×2 (09:41→21:45)
[2017-09-30] MEDS: SIMETHICONE 40 MG/0.6 ML BOTTLE PO PRN (13:51)
[2017-09-30] MEDS ORDERED: MAG HYDROX/AL HYDROX/SIMETH 30 ML UNIT-DOSE CUP PO PRN (16:41)
--- NOTE | 2017-09-30 22:01 | PN ---
GI Progress Note Subjective: GI NOte: Marah developed bloating and abdominal pain despite having had a BM earlier today. She subsequently vomited and that brought relief. Her pathology is still pending. - Objective Vital Signs: Vital Signs Temperature 97.9 F 09/30/17 20:14 Pulse Rate 76 09/30/17 20:14 Respiratory Rate 20 09/30/17 20:14 Blood Pressure 140/62 09/30/17 20:14 O2 Sat by Pulse Oximetry (%) 100 09/30/17 07:45 Laboratory Tests 09/27/17 09/28/17 06:15 06:00 Hgb 9.0 L Retic Count 2.66 H D Constitutional: Anxious Gastrointestinal Inspection: Yes: Distention ...Auscultate: Yes: Hyperactive Bowel Sounds ...Palpate: Yes: Soft, Other (succusion splash) Labs: CBC, BMP 09/28/17 06:00 09/28/17 06:00 INR, PTT INR 1.06 (0.82-1.09) 09/24/17 06:45 Problem List - Problems (1) Duodenal mass Assessment/Plan: Suspect gastric outlet obstruction due to recurrence of colon cancer within the duodenum. Will order UGI series Code(s): K31.89 - OTHER DISEASES OF STOMACH AND DUODENUM (2) GIB (gastrointestinal bleeding) Code(s): K92.2 - GASTROINTESTINAL HEMORRHAGE, UNSPECIFIED Qualifiers: GI bleed type/associated pathology: melena Qualified Code(s): K92.1 - Melena
[2017-10-01] MEDS ORDERED: PT OWN MED DRAWER 7, Y5N ONE (06:27)
[2017-10-01] MEDS: LEVOTHYROXINE SODIUM 100 MCG VIAL IVPUSH SCH (06:33)
--- NOTE | 2017-10-01 06:35 | PN ---
Progress Note, Physician Chief Complaint: worse today, not able to eat, bloated, KUB noted; nauseous, discharge home plan cancelled seen by GI, GI series pending - Current Medication List Current Medications: Active Medications Al Hydroxide/Mg Hydroxide (Mylanta Oral Suspension -) 30 ml PO Q6H PRN PRN Reason: INDIGESTION Last Admin: 09/30/17 16:48 Dose: 30 ml Cyanocobalamin (Vitamin B12 Injection -) 1,000 mcg IM DAILY [facility] Last Admin: 09/30/17 09:41 Dose: 1,000 mcg Levothyroxine Sodium (Synthroid Injection -) 50 mcg IVPUSH DAILY@0700 [facility] Last Admin: 09/30/17 06:53 Dose: 50 mcg Pantoprazole Sodium (Protonix -) 40 mg PO BID [facility] Last Admin: 09/30/17 21:45 Dose: 40 mg Polyethylene Glycol (Miralax (For Daily Use) -) 17 gm PO BID [facility] Last Admin: 09/30/17 21:45 Dose: 17 gm Simethicone (Mylicon Liquid -) 40 mg PO Q6H PRN PRN Reason: PAIN Last Admin: 09/30/17 13:51 Dose: 40 mg - Objective Vital Signs: Vital Signs Temperature 97.8 F 10/01/17 02:00 Pulse Rate 78 10/01/17 06:00 Respiratory Rate 20 10/01/17 06:00 Blood Pressure 133/61 10/01/17 06:00 O2 Sat by Pulse Oximetry (%) 99 09/30/17 21:00 Constitutional: Yes: No Distress, Calm Eyes: Yes: Conjunctiva Clear HENT: Yes: Atraumatic Neck: Yes: Supple Cardiovascular: Yes: Regular Rate and Rhythm Respiratory: Yes: CTA Bilaterally Gastrointestinal: Yes: Soft. No: Distention, Tenderness Genitourinary: No: CVA Tenderness - Left, CVA Tenderness - Right Musculoskeletal: No: Joint Stiffness, Joint Swelling Extremities: No: Cold, Cool Edema: No Integumentary: No: Rash, Venous Stasis Changes Neurological: Yes: WNL, Alert, Oriented ...Motor Strength: WNL Psychiatric: Yes: WNL, Alert, Oriented. No: Agitated, Suicidal Ideation Labs: CBC, BMP 09/28/17 06:00 09/28/17 06:00 INR, PTT INR 1.06 (0.82-1.09) 09/24/17 06:45 - ....Imaging Other: Report Reviewed Assessment/Plan 77 YOF h/o colon CA s/p R hemicolectomy 1 year ago s/p EGD 1 month ago esophageal varices, liver cirrhosis N/V/ abdominal bloating, duodenal mass check path report still pending, I called path, most likely available later today GI series IV PPI, IV zofran prn NPO for now heme onc and surgery f/u d/w pt and daughter prognosis guarded advised DVT PFX TEDs to legs, SCDs can not use sq heparin b/o active GI bleed and anemia; falls PFX pt advised do not get OOB alone decubs PFX; d/w staff
--- NOTE | 2017-10-01 09:25 | PN ---
GI Progress Note Subjective: GI NOte: NO vomiting overnight. Had a brown loose BM today. Still feels gassy. Daughter is with her today. I explained my concerns about obstruction by the tumor and that the path is still pending. Going for UGI - Objective Vital Signs: Vital Signs Temperature 97.8 F 10/01/17 02:00 Pulse Rate 78 10/01/17 06:00 Respiratory Rate 20 10/01/17 06:00 Blood Pressure 133/61 10/01/17 06:00 O2 Sat by Pulse Oximetry (%) 99 09/30/17 21:00 Constitutional: Calm Gastrointestinal Inspection: Yes: Distention ...Auscultate: Yes: Normoactive Bowel Sounds ...Palpate: Yes: Soft, Other (nontender) ...Percussion: Yes: Tympanitic Labs: CBC, BMP 09/28/17 06:00 09/28/17 06:00 INR, PTT INR 1.06 (0.82-1.09) 09/24/17 06:45 Problem List - Problems (1) Duodenal mass Assessment/Plan: Going for UGI to exclude gastric outlet obstruction at level of the duodenum. Code(s): K31.89 - OTHER DISEASES OF STOMACH AND DUODENUM (2) GIB (gastrointestinal bleeding) Code(s): K92.2 - GASTROINTESTINAL HEMORRHAGE, UNSPECIFIED Qualifiers: GI bleed type/associated pathology: melena Qualified Code(s): K92.1 - Melena
[2017-10-01] MEDS ORDERED: ONDANSETRON 4 MG/2 ML VIAL IVPB PRN (10:58)
[2017-10-01] MEDS: POLYETHYLENE GLYCOL 3350 119 GM BTL PO SCH ×2 (11:13→22:08)
[2017-10-01] MEDS: PANTOPRAZOLE SODIUM 40 MG VIAL IVPB SCH ×2 (11:22→22:07)
[2017-10-01] MEDS: CYANOCOBALAMIN (VITAMIN B-12) 1000 MCG/1 ML VIAL IM SCH (11:22)
[2017-10-01] MEDS: SIMETHICONE 40 MG/0.6 ML BOTTLE PO PRN (16:49)
--- NOTE | 2017-10-01 18:24 | PN ---
Progress Note (short form) - Note Progress Note: Oncology Note: Pt seen and examined. all the events noted. +nausea. UGI series d/w , consistent with Obstruction. Family ( both son and daughter ) at bedside. O/E: Cor: RSR, No murmurs, No gallops Lungs: Clear to P&A Abd: Distended , BS+ Extremities: no c/c/e neuro: AAOx3 Last Vital Signs Temp Pulse Resp BP Pulse Ox 98.3 F 82 20 142/60 99 10/01/17 14:00 10/01/17 16:00 10/01/17 16:00 10/01/17 16:00 10/01/17 09:00 CBC, BMP 09/28/17 06:00 09/28/17 06:00 Current Medications Generic Name Dose Route Start Last Admin Trade Name Freq PRN Reason Stop Dose Admin Al Hydroxide/Mg Hydroxide 30 ml 09/30/17 16:41 09/30/17 16:48 Mylanta Oral Suspension - PO 30 ml Q6H PRN Administration INDIGESTION Cyanocobalamin 1,000 mcg 09/27/17 10:00 10/01/17 11:22 Vitamin B12 Injection - IM 1,000 mcg DAILY KARL Administration Levothyroxine Sodium 50 mcg 09/25/17 07:00 10/01/17 06:33 Synthroid Injection - IVPUSH 50 mcg DAILY@0700 KARL Administration Ondansetron HCl 8 mg 10/01/17 10:58 10/01/17 11:22 Zofran Injection IVPB 8 mg Q8H PRN Administration NAUSEA Pantoprazole Sodium 40 mg 10/01/17 11:00 10/01/17 11:22 Protonix Iv IVPB 40 mg BID KARL Administration Polyethylene Glycol 17 gm 09/28/17 22:00 10/01/17 11:13 Miralax (For Daily Use) - PO Not Given BID KARL Simethicone 40 mg 09/24/17 21:23 10/01/17 16:49 Mylicon Liquid - PO 40 mg Q6H PRN Administration PAIN Recurrent Colon Ca. (path not signed out yet, but preliminary report consistent with the prior colon adeno) Now Obstructive mass. different options discussed:with both kids and pt 1) surgery ( reviewed prior surgical note and have discussed the same) 2) Stent ( explained that this procedure can be only done at [facility]) 3) consult Rad-Onc to get their input on giving RT for the obstruction 4) once any of the modality chosen and she puts up some nutritional intake, chemo might be added in a period of time. The above for palliative purposes was explained too. They wanted to talk amongst and also discuss further and also wanted to discuss with . spoke to Appreciate his input all along dw . aware.
[2017-10-02] MEDS ORDERED: PT OWN MED DRAWER 7, Y5N ONE ×2 (03:46→13:12)
[2017-10-02] MEDS: LEVOTHYROXINE SODIUM 100 MCG VIAL IVPUSH SCH (06:10)
--- NOTE | 2017-10-02 06:32 | PN ---
Progress Note, Physician Chief Complaint: in bed not able to eat b/o N/V, is on fluid diet d/w GI and heme onc the options, d/w pt and daughter at bedside - Current Medication List Current Medications: Active Medications Al Hydroxide/Mg Hydroxide (Mylanta Oral Suspension -) 30 ml PO Q6H PRN PRN Reason: INDIGESTION Last Admin: 09/30/17 16:48 Dose: 30 ml Cyanocobalamin (Vitamin B12 Injection -) 1,000 mcg IM DAILY [facility] Last Admin: 10/01/17 11:22 Dose: 1,000 mcg Levothyroxine Sodium (Synthroid Injection -) 50 mcg IVPUSH DAILY@0700 [facility] Last Admin: 10/02/17 06:10 Dose: 50 mcg Ondansetron HCl (Zofran Injection) 8 mg IVPB Q8H PRN PRN Reason: NAUSEA Last Admin: 10/01/17 11:22 Dose: 8 mg Pantoprazole Sodium (Protonix Iv) 40 mg IVPB BID [facility] Last Admin: 10/01/17 22:07 Dose: 40 mg Polyethylene Glycol (Miralax (For Daily Use) -) 17 gm PO BID [facility] Last Admin: 10/01/17 22:08 Dose: Not Given Simethicone (Mylicon Liquid -) 40 mg PO Q6H PRN PRN Reason: PAIN Last Admin: 10/01/17 16:49 Dose: 40 mg - Objective Vital Signs: Vital Signs Temperature 98.2 F 10/02/17 02:00 Pulse Rate 69 10/02/17 06:08 Respiratory Rate 18 10/02/17 06:08 Blood Pressure 142/66 10/02/17 06:08 O2 Sat by Pulse Oximetry (%) 99 10/01/17 21:00 Constitutional: Yes: No Distress, Calm Eyes: Yes: Conjunctiva Clear HENT: Yes: Atraumatic Neck: Yes: Supple Cardiovascular: Yes: Regular Rate and Rhythm Respiratory: Yes: CTA Bilaterally Gastrointestinal: Yes: Soft, Distention. No: Palpable Mass, Tenderness Genitourinary: No: CVA Tenderness - Left, CVA Tenderness - Right, Hematuria Musculoskeletal: No: Joint Stiffness, Joint Swelling Extremities: No: Cold, Cool, Cyanosis Edema: No Integumentary: No: Rash, Venous Stasis Changes Neurological: Yes: WNL, Alert, Oriented ...Motor Strength: WNL Psychiatric: Yes: WNL, Alert, Oriented. No: Agitated, Suicidal Ideation Labs: CBC, BMP 09/28/17 06:00 09/28/17 06:00 INR, PTT INR 1.06 (0.82-1.09) 09/24/17 06:45 - ....Imaging Other: Report Reviewed Assessment/Plan 77 YOF h/o colon CA s/p R hemicolectomy 1 year ago s/p EGD 1 month ago esophageal varices, liver cirrhosis N/V/ abdominal bloating, duodenal mass path cw recurrent colon adenoCA IV PPI, IV zofran prn NPO for now heme onc and GI f/u d/w pt and daughter options, including stent or jejunostomy (not able to be done here, will need transfer to tertiary center), then chemo and possibly radiation therapy prognosis guarded advised DVT PFX TEDs to legs, SCDs can not use sq heparin b/o active GI bleed and anemia; falls PFX pt advised do not get OOB alone decubs PFX; d/w staff
[2017-10-02] MEDS: CYANOCOBALAMIN (VITAMIN B-12) 1000 MCG/1 ML VIAL IM SCH (10:34)
[2017-10-02] MEDS: PANTOPRAZOLE SODIUM 40 MG VIAL IVPB SCH ×2 (10:34→21:27)
--- NOTE | 2017-10-02 12:18 | PN ---
GI Progress Note Subjective: No acute events No vomiting today Biopsies of duodenal tumor unofficial however c/w adeno from colon - Objective Vital Signs: Vital Signs Temperature 98.2 F 10/02/17 02:00 Pulse Rate 69 10/02/17 06:08 Respiratory Rate 18 10/02/17 06:08 Blood Pressure 142/66 10/02/17 06:08 O2 Sat by Pulse Oximetry (%) 99 10/01/17 21:00 Constitutional: Calm Eyes: No: Sclera Icterus Cardiovascular: Yes: Regular Rate and Rhythm Gastrointestinal Inspection: Yes: Distention (Softly protubernat, no sucussion splash, mild TTP RUQ) ...Auscultate: Yes: Normoactive Bowel Sounds Labs: CBC, BMP 09/28/17 06:00 09/28/17 06:00 INR, PTT INR 1.06 (0.82-1.09) 09/24/17 06:45 Problem List - Problems (1) Duodenal mass Assessment/Plan: Suspected metastatic colon cancer with developing gastric outlet obstruction - On clears. currently. If vomiting persists strict NPO. Trying to avoid NGT if possible given that she still has endoclip at the [place] - For transfer to [facility] for further treatement and likely duodenal stent placement Code(s): K31.89 - OTHER DISEASES OF STOMACH AND DUODENUM
--- NOTE | 2017-10-02 13:14 | PATH ---
Surgical Pathology Report Patient Name: PATRICIA ROJAS [facility]. Rec. 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 Louis C. Androne, M.D. Amara Nandikolla, M.D. Specimen(s) Received BX DUODENUM MASS Clinical History Preoperative diagnosis: Duodenal mass Postoperative diagnosis: Duodenal mass, rule out adenocarcinoma Final Diagnosis DUODENAL MASS, BIOPSY: INVASIVE ADENOCARCINOMA, MODERATELY DIFFERENTIATED. Comment: Immunohistochemical stains performed and interpreted at [facility] show the tumor is positive for AE1/3, while negative for CK7 and CK20. Immunohistochemical stain performed at [place], [place] ([id number]) and interpreted at [facility] show CDX2 is positive. Prior material from the colon ([id number]) is reviewed and show morphologic overlap. Overall findings are compatible with recurrent adenocarcinoma from patient's known right colon tumor. Findings discussed with Drs. Segura and Ericka. Electronically Signed Ana Price M.D. Gross Description Received in formalin labeled "biopsy duodenal mass," is a 1.5 x 1.0 x 0.2 cm aggregate of winkler soft tissue fragments admixed with blood clot. The formalin is filtered the specimen is entirely submitted in one cassette. /09/26/2017 saudi09/26/2017
[2017-10-02] MEDS: POLYETHYLENE GLYCOL 3350 119 GM BTL PO SCH ×2 (15:43→21:04)
[2017-10-02] MEDS: SIMETHICONE 40 MG/0.6 ML BOTTLE PO PRN ×2 (16:06→22:30)
--- NOTE | 2017-10-02 19:06 | PN ---
Progress Note (short form) - Note Progress Note: Patient seen and examined Discussed options with GI High risk with surgery, and patient is not inclined in this direction anyway. RT/Chemotherapy to "open-up" obstruction an option, but even if successful, it would take weeks . Mechanical stenting seems to be best option. Patient is willing to be transferred to [facility] for stenting. Hopefully thereafter, oncologic intervention can be entertained. Last Vital Signs Temp Pulse Resp BP Pulse Ox 98.6 F 81 18 145/66 99 10/02/17 14:00 10/02/17 14:00 10/02/17 14:00 10/02/17 14:00 10/02/17 09:00 No icterus No thrush Lungs- clear Cor- RSR Abd- hyperactive bowel sounds Extremities - no significant CBC, BMP 09/28/17 06:00 09/28/17 06:00 Current Medications Generic Name Dose Route Start Last Admin Trade Name Freq PRN Reason Stop Dose Admin Al Hydroxide/Mg Hydroxide 30 ml 09/30/17 16:41 09/30/17 16:48 Mylanta Oral Suspension - PO 30 ml Q6H PRN Administration INDIGESTION Cyanocobalamin 1,000 mcg 09/27/17 10:00 10/02/17 10:34 Vitamin B12 Injection - IM 1,000 mcg DAILY KARL Administration Levothyroxine Sodium 50 mcg 09/25/17 07:00 10/02/17 06:10 Synthroid Injection - IVPUSH 50 mcg DAILY@0700 KARL Administration Ondansetron HCl 8 mg 10/01/17 10:58 10/01/17 11:22 Zofran Injection IVPB 8 mg Q8H PRN Administration NAUSEA Pantoprazole Sodium 40 mg 10/01/17 11:00 10/02/17 10:34 Protonix Iv IVPB 40 mg BID KARL Administration Polyethylene Glycol 17 gm 09/28/17 22:00 10/02/17 15:43 Miralax (For Daily Use) - PO Not Given BID KARL Simethicone 40 mg 09/24/17 21:23 10/02/17 16:06 Mylicon Liquid - PO 40 mg Q6H PRN Administration PAIN Impression: Recurrent colon ca with obstruction Consideration for transfer and stenting to relieve obstruction.
--- NOTE | 2017-10-02 20:54 | PN ---
Progress Note (short form) - Note Progress Note: Radiation Oncology Pt seen, chart/films reviewed, dictated consult to follow. 77 yo with hx of Colon CA s/p resection w/o adjuvant tx, now with bx proven recurrence involving duodenum and assoc w obstruction and bleeding. Apparently not a good candidate for surgical resection. Discussed role of RT +/- chemo to palliate further bleeding and obstruction. Possibility of worsening obstruction during therapy and consideration for temporary stent and/or J-tube for nutritional support was discussed. She is planning to have stent placed at [facility]. She and dtr will further consider palliative therapy thereafter. Risks and benefits of RT discussed. Will f/u after stent placement.
[2017-10-03] MEDS: LEVOTHYROXINE SODIUM 100 MCG VIAL IVPUSH SCH (06:40)
--- NOTE | 2017-10-03 07:38 | PN ---
Progress Note, Physician Chief Complaint: still with abdominal distension on fluid diet; daughter at bedside, pt and daughter agreed transfer to [facility] for duodenal stent had long discussions with heme onc, GI and radiation onc; plan well outlined - Current Medication List Current Medications: Active Medications Al Hydroxide/Mg Hydroxide (Mylanta Oral Suspension -) 30 ml PO Q6H PRN PRN Reason: INDIGESTION Last Admin: 09/30/17 16:48 Dose: 30 ml Cyanocobalamin (Vitamin B12 Injection -) 1,000 mcg IM DAILY [facility] Last Admin: 10/02/17 10:34 Dose: 1,000 mcg Levothyroxine Sodium (Synthroid Injection -) 50 mcg IVPUSH DAILY@0700 [facility] Last Admin: 10/03/17 06:40 Dose: 50 mcg Ondansetron HCl (Zofran Injection) 8 mg IVPB Q8H PRN PRN Reason: NAUSEA Last Admin: 10/01/17 11:22 Dose: 8 mg Pantoprazole Sodium (Protonix Iv) 40 mg IVPB BID [facility] Last Admin: 10/02/17 21:27 Dose: 40 mg Polyethylene Glycol (Miralax (For Daily Use) -) 17 gm PO BID [facility] Last Admin: 10/02/17 21:04 Dose: Not Given Simethicone (Mylicon Liquid -) 40 mg PO Q6H PRN PRN Reason: PAIN Last Admin: 10/02/17 22:30 Dose: 40 mg - Objective Vital Signs: Vital Signs Temperature 98.1 F 10/03/17 06:00 Pulse Rate 71 10/03/17 06:00 Respiratory Rate 18 10/03/17 06:00 Blood Pressure 142/62 10/03/17 06:00 O2 Sat by Pulse Oximetry (%) 100 10/02/17 21:00 Constitutional: Yes: No Distress, Calm Eyes: Yes: Conjunctiva Clear HENT: Yes: Atraumatic Neck: Yes: Supple Cardiovascular: Yes: Regular Rate and Rhythm Respiratory: Yes: CTA Bilaterally Gastrointestinal: Yes: Soft, Distention. No: Tenderness Genitourinary: No: CVA Tenderness - Left, CVA Tenderness - Right Musculoskeletal: No: Joint Stiffness, Joint Swelling Extremities: No: Cold, Cool Edema: No Integumentary: No: Rash, Venous Stasis Changes Neurological: Yes: WNL, Alert, Oriented ...Motor Strength: WNL Psychiatric: Yes: WNL, Alert, Oriented. No: Agitated Labs: CBC, BMP 09/28/17 06:00 09/28/17 06:00 INR, PTT INR 1.06 (0.82-1.09) 09/24/17 06:45 - ....Imaging Other: Report Reviewed Assessment/Plan 77 YOF h/o colon CA s/p R hemicolectomy 1 year ago s/p EGD 1 month ago esophageal varices, liver cirrhosis N/V/ abdominal bloating, duodenal mass path cw recurrent colon adenoCA IV PPI, IV zofran prn NPO for now heme onc and GI f/u d/w pt and daughter options, pt and daughter agreed that pt to be transferred to [facility] [place] for duodenal stent, then chemo and possibly radiation therapy as outpt - pt to f/u with ONC and Rad ONC after DC from [facility]; they understand that the above therapies are palliative not curative; prognosis guarded advised DVT PFX TEDs to legs, SCDs can not use sq heparin b/o active GI bleed and anemia; falls PFX pt advised do not get OOB alone decubs PFX; d/w staff d/w GI dr Daily who also spoke with GI in [facility] d/w Onc dr Luna who arrainged transfer to [facility]
[2017-10-03 08:32] LABS: BASO % 0.7 % (0-2.0); EOS % 2.6 % (0-4.5); HEMATOCRIT 24.4 % (32.4-45.2); HEMOGLOBIN 8.2 GM/dL (10.7-15.3); MCH 29.6 pg (25.7-33.7); MCHC 33.8 g/dl (32.0-36.0); MEAN CELL VOLUME 87.7 fl (80-96); MEAN PLT VOLUME 7.7 fl (7.5-11.1); MONO % 13.6 % (3.8-10.2); NEUT % 74.1 % (42.8-82.8); PLATELET COUNT 211 K/MM3 (134-434); RBC 2.78 M/mm3 (3.60-5.2); RDW 16.5 % (11.6-15.6); WHITE BLOOD COUNT 6.2 K/mm3 (4.0-10.0)
[2017-10-03 09:05] LABS: ALBUMIN 2.7 g/dl (3.4-5.0); ALK PHOS 261 U/L (45-117); ANION GAP 11 (8-16); BILIRUBIN,TOTAL 0.5 mg/dL (0.2-1.0); BLOOD UREA NITROGEN 22 mg/dL (7-18); CALCIUM 7.8 mg/dL (8.5-10.1); CHLORIDE 99 mmol/L (98-107); CO2 21 mmol/L (21-32); CREATININE 1.2 mg/dL (0.55-1.02); GLUCOSE,RANDOM 98 mg/dL (74-106); POTASSIUM 3.8 mmol/L (3.5-5.1); SODIUM 131 mmol/L (136-145); TOT PROT 6.2 g/dl (6.4-8.2)
[2017-10-03] MEDS: POLYETHYLENE GLYCOL 3350 119 GM BTL PO SCH (09:18)
[2017-10-03] MEDS: CYANOCOBALAMIN (VITAMIN B-12) 1000 MCG/1 ML VIAL IM SCH (09:20)
[2017-10-03] MEDS: PANTOPRAZOLE SODIUM 40 MG VIAL IVPB SCH (09:20)
[2017-10-03] MEDS ORDERED: AMINO ACIDS 4.25%/D5W 1,000 ML IV SCH ×2 (11:00→15:15)
[2017-10-03 11:48] LABS: SGOT/AST 33 U/L (15-37)
[2017-10-03 11:49] LABS: SGPT/ALT 11 U/L (12-78)
[2017-10-03] MEDS ORDERED: DEXTROSE 5%-NORMAL SALINE 1,000 ML IV SCH (12:15)
[2017-10-03 13:11] VITALS: TEMP 98.3
--- NOTE | 2017-10-03 14:44 | PN ---
Progress Note (short form) - Note Progress Note: events noted d/w d/w Onc attending of [facility]. d/w pt/daughter/ pt awaits transfer to [facility] for Stent. O/E: Cor: RSR, No murmurs, No gallops Lungs: Clear to P&A Abd: Distended , BS+ Extremities: no c/c/e neuro: AAOx3 Last Vital Signs Temp Pulse Resp BP Pulse Ox 98.3 F 72 18 161/68 100 10/03/17 13:10 10/03/17 13:10 10/03/17 13:10 10/03/17 13:10 10/03/17 09:00 CBC, BMP 10/03/17 07:40 10/03/17 08:30 Current Medications Generic Name Dose Route Start Last Admin Trade Name Freq PRN Reason Stop Dose Admin Al Hydroxide/Mg Hydroxide 30 ml 09/30/17 16:41 09/30/17 16:48 Mylanta Oral Suspension - PO 30 ml Q6H PRN Administration INDIGESTION Cyanocobalamin 1,000 mcg 09/27/17 10:00 10/03/17 09:20 Vitamin B12 Injection - IM 1,000 mcg DAILY KARL Administration Dextrose/Sodium Chloride 1,000 mls @ 42 mls/hr 10/03/17 12:15 D5-Ns - IV ASDIR KARL Levothyroxine Sodium 50 mcg 09/25/17 07:00 10/03/17 06:40 Synthroid Injection - IVPUSH 50 mcg DAILY@0700 KARL Administration Ondansetron HCl 8 mg 10/01/17 10:58 10/01/17 11:22 Zofran Injection IVPB 8 mg Q8H PRN Administration NAUSEA Pantoprazole Sodium 40 mg 10/01/17 11:00 10/03/17 09:20 Protonix Iv IVPB 40 mg BID KARL Administration Polyethylene Glycol 17 gm 09/28/17 22:00 10/03/17 09:18 Miralax (For Daily Use) - PO Not Given BID KARL Simethicone 40 mg 09/24/17 21:23 10/02/17 22:30 Mylicon Liquid - PO 40 mg Q6H PRN Administration PAIN Recurrent Colon Ca. Obstruction at the duodenum if Hgb trending down further, if here, will need to transfuse for Stent placement at [facility] transfer to [facility] (Onc service) once bed is available.
--- NOTE | 2017-10-03 14:53 | PN ---
GI Progress Note Subjective: GI NOte: Tolerating liquids. Having brown BMs. Less gas pain. Not vomiting. UGI reviewed. I discussed the case in detail with Dr Gomez yesterday. We mutually agree that Marah should have an attempt at duodenal stenting to allow for feeding and to build Marah up in anticipation of RT and chemo. I have discussed the plan with Marah who has already accepted transfer to [facility]. I have placed a call to Dr. Hudson Sherman who places such stents and await his return call to inform him of Marah's condition. - Objective Vital Signs: Vital Signs Temperature 98.3 F 10/03/17 13:10 Pulse Rate 72 10/03/17 13:10 Respiratory Rate 18 10/03/17 13:10 Blood Pressure 161/68 10/03/17 13:10 O2 Sat by Pulse Oximetry (%) 100 10/03/17 09:00 Laboratory Tests 09/26/17 09/27/17 09/28/17 21:30 06:15 06:00 Hgb 10.3 L 9.0 L Retic Count 2.66 H D Total Bilirubin AST ALT Alkaline Phosphatase 10/03/17 10/03/17 07:40 08:30 Hgb 8.2 L Retic Count Total Bilirubin 0.5 D AST 33 ALT 11 L Alkaline Phosphatase 261 H Constitutional: Anxious ...Auscultate: Yes: Normoactive Bowel Sounds ...Palpate: Yes: Soft, Other (nontender) Labs: CBC, BMP 10/03/17 07:40 10/03/17 08:30 INR, PTT INR 1.06 (0.82-1.09) 09/24/17 06:45 Assessment/Plan Obstructing colon cancer recurrence in 2nd portion of the duodenum Await transfer to [facility] for duodenal stenting Dr Pierson will be covering this weekend. Please call him if needed. Problem List - Problems (1) Duodenal mass Assessment/Plan: Recurrence of colon cancer in the duodenum confirmed. Await transfer to [facility] for duodenal stenting. Code(s): K31.89 - OTHER DISEASES OF STOMACH AND DUODENUM (2) GIB (gastrointestinal bleeding) Code(s): K92.2 - GASTROINTESTINAL HEMORRHAGE, UNSPECIFIED Qualifiers: GI bleed type/associated pathology: melena Qualified Code(s): K92.1 - Melena
--- NOTE | 2017-10-03 14:59 | CONSULT ---
Consult - text type - Consultation Consultation Note: Renal Consult for Hyponatremia and parental nutrition This is a 77 year old woman with PMhx of CKD/SHARITA, Colon Ca s/p resection with now recurrence, Hypothyrodism presented with black tarry stools and found to have gastric outlet obstruction and Na of 131 and only able to tolerate liquid diet. PMHx: as above Allergies: NDKDA Family Hx: NC Social Hx: No T/A/D ROS: as per HPI Home Medications Medication Instructions Recorded Levothyroxine [Synthroid -] 50 mcg PO DAILY@0700 tablet 05/25/17 Multivit-Min/Iron/Folic/Lutein 1 each PO DAILY 09/22/17 [Centrum Silver Women Tablet] Pantoprazole Sodium [Protonix -] 40 mg PO BID 09/22/17 Mag Hydrox/Al Hydrox/Simeth 30 ml PO Q6H PRN cup 10/01/17 [Mylanta Oral Suspension -] Pantoprazole Sodium [Protonix -] 40 mg PO BID tablet.ec 10/01/17 Polyethylene Glycol 3350 [Miralax 17 gm PO BID bottle 10/01/17 119 gm Btl -] Simethicone Liquid [Mylicon Liquid 40 mg PO Q6H PRN ml 10/01/17 -] Vital Signs Temperature 98.3 F 10/03/17 14:00 Pulse Rate 72 10/03/17 14:00 Respiratory Rate 18 10/03/17 14:00 Blood Pressure 161/68 10/03/17 14:00 O2 Sat by Pulse Oximetry (%) 100 10/03/17 09:00 Intake & Output 09/30/17 10/01/17 10/02/17 10/03/17 23:59 23:59 23:59 23:59 Intake Total 20 180 180 10 Balance 20 180 180 10 NAD awake and alert RRR, No M/R + abd distension NO LE edema CBC, BMP 10/03/17 07:40 10/03/17 08:30 Current Medications Al Hydroxide/Mg Hydroxide (Mylanta Oral Suspension -) 30 ml PO Q6H PRN PRN Reason: INDIGESTION Last Admin: 09/30/17 16:48 Dose: 30 ml Cyanocobalamin (Vitamin B12 Injection -) 1,000 mcg IM DAILY [facility] Last Admin: 10/03/17 09:20 Dose: 1,000 mcg Dextrose/Sodium Chloride (D5-Ns -) 1,000 mls @ 42 mls/hr IV ASDIR [facility] Levothyroxine Sodium (Synthroid Injection -) 50 mcg IVPUSH DAILY@0700 [facility] Last Admin: 10/03/17 06:40 Dose: 50 mcg Ondansetron HCl (Zofran Injection) 8 mg IVPB Q8H PRN PRN Reason: NAUSEA Last Admin: 10/01/17 11:22 Dose: 8 mg Pantoprazole Sodium (Protonix Iv) 40 mg IVPB BID [facility] Last Admin: 10/03/17 09:20 Dose: 40 mg Polyethylene Glycol (Miralax (For Daily Use) -) 17 gm PO BID [facility] Last Admin: 10/03/17 09:18 Dose: Not Given Simethicone (Mylicon Liquid -) 40 mg PO Q6H PRN PRN Reason: PAIN Last Admin: 10/02/17 22:30 Dose: 40 mg 77 year old woman with PMhx of CKD/SHARITA, Colon Ca s/p resection with now recurrence, Hypothyrodism presented with black tarry stools and found to have gastric outlet obstruction and Na of 131 and only able to tolerate liquid diet. #Hyponatremia likely hyopvolemic hyponatremia moreno Start NS at 75cc per hour trend Na Qdaily no indication for 3% saline check Urine Na, Urine OSM, serum OSM #Poor oral intake in setting of gastric outlet obstruction will start Clinamix at 42cc per hour in addition to NS awaiting transfer to [facility] Raul Fuentes DO
[2017-10-03] MEDS ORDERED: AA 2.75 %/CALCIUM/LYTES/D7.5W 1,000 ML IVPB SCH (15:15)
[2017-10-03] MEDS ORDERED: SODIUM CHLORIDE 1,000 ML IV SCH (15:15)
--- NOTE | 2017-10-03 18:03 | PN ---
Progress Note (short form) - Note Progress Note: GI NOte: I spoke with Dr Hudson Sherman at [facility] who will prepare to insert the duodenal stent early next week. Problem List - Problems (1) Duodenal mass Code(s): K31.89 - OTHER DISEASES OF STOMACH AND DUODENUM (2) GIB (gastrointestinal bleeding) Code(s): K92.2 - GASTROINTESTINAL HEMORRHAGE, UNSPECIFIED Qualifiers: GI bleed type/associated pathology: melena Qualified Code(s): K92.1 - Melena
[2017-10-03 20:08] VITALS: BP 148/72; PULSE 74
--- NOTE | 2017-10-04 07:13 | CONS ---
DATE OF CONSULTATION: 10/02/2017 REFERRING PHYSICIAN: Imelda Barnett MD REASON FOR CONSULTATION: Duodenal obstruction by recurrent colon cancer. HISTORY OF PRESENT ILLNESS: The patient is a 77-year-old woman with a history of a T4aN0 colonic adenocarcinoma who underwent right hemicolectomy and abdominal wall resection, which revealed tumor invading through the serosa with perforation and 20 benign lymph nodes. Postoperatively, she was unable to receive adjuvant chemotherapy due to postoperative complications, ascites, and abscess. Recently, she was admitted for melena, and CT of the abdomen showed a 7 cm periduodenal mass on September 01. She was readmitted for recurrent melena with a hemoglobin of 6.8. She was transfused and has remained hemodynamically stable. An EGD showed a near circumferential obstructing, fungating mass in the 2nd portion of the duodenum. Initial biopsy was inconclusive, but the 2nd biopsy on September 26, 2017 confirmed recurrent invasive adenocarcinoma of the colon. She now has abdominal pain and bloating, nausea and vomiting. An upper GI series suggests gastric outlet obstruction. She is considering a stent at this time. She is not a surgical candidate, per chart, the patient and daughter. We were asked to evaluate for a role for radiation therapy. She has no history of prior radiotherapy, inflammatory bowel disease, or collagen vascular disease. PAST MEDICAL HISTORY: Spontaneous pneumothorax status post chest tube, endoscopic clipping of distal esophageal bleeding site, GERD, Whitfield esophagus, liver cirrhosis with esophageal varices, cholelithiasis, hypothyroidism status post radioactive iodine for hyperthyroid, cellulitis, 2 sections, oophorectomy, acute renal failure resolved. PAST SURGICAL HISTORY: As noted above. ALLERGIES: No known drug allergies. CURRENT MEDICATIONS: Zofran p.r.n., simethicone p.r.n., MiraLAX, Protonix, Synthroid, vitamin B12. SOCIAL HISTORY: She is . No current tobacco or alcohol use. FAMILY HISTORY: Father had lung cancer. Mother had ovarian cancer. Brother had lung cancer. Daughter had lupus. REVIEW OF SYSTEMS: Reports mild abdominal pain. No recent nausea or vomiting. PHYSICAL EXAMINATION: General: An elderly female in no acute distress with daughter at bedside. Vital Signs: Height 5 feet 3 inches, weight 115 pounds, temperature 98.6, blood pressure 145/66, pulse 81, respiratory rate 18, SaO2 99% on room air. HEENT: Normocephalic and atraumatic. Moist mucous membranes. Clear oral cavity. Neck: No thyromegaly or adenopathy. Chest: Clear. Cardiovascular: Regular. Abdomen: Moderately distended and tense with tenderness. Bowel sounds are hypoactive. Organomegaly is not appreciated. Extremities: No edema. Neurologic: Nonfocal. LABORATORY DATA: WBC 8.9, hemoglobin 9.7, platelets 184,000. Electrolytes: Sodium 132, potassium 3.7, BUN 20, creatinine 1.1, calcium 8.4, total bilirubin 0.4, GGT 118, AST 29, ALT 14, alkaline phosphatase 235, albumin 2.6. PATHOLOGIC DATA: See HPI. RADIOLOGIC DATA: See HPI. IMPRESSION: A 77-year-old woman with recurrent colon cancer mass involving the duodenum with bleeding and obstruction. She is apparently not a good candidate for surgical resection per Dr. Torres. She is considering placement of an endoluminal stent for nutritional support. I discussed a role for radiation therapy with or without chemotherapy to palliate and reduce further bleeding and minimize further obstruction and possibly mitigate the process . I discussed the possibility of worsening obstruction during radiation therapy with consideration of a temporary stent and/or jejunal feeding tube is reasonable. We did discuss the issues of stent migration and risks should she have a good tumor reponse to therapy. She and her daughter have agreed for transfer to [facility] for a stent. We reviewed potential risks/side effects of radiation therapy that may include, but not limited to, enteritis, worsening obstruction, bilious as well as dermatitis, mild depression, fatigue. The role of concurrent chemotherapy will be considered with medical oncology. She and her daughter were given the opportunity to ask questions and wish to further consider palliative radiation therapy after the stent placement. I have provided our office number. Thank you for asking me to see this patient. BEBO ELISE M.D. [id number] MTDD
== END 2017-10-03 22:00 | disposition home or self-care (01) | DRG 375 ==
LOC: JER 11:31 → JERBED 16:46 → JICU 23:50 → J2W 09-24 20:54
PROVIDERS: ADMIT Specialist; ATTEND Specialist
PROC: 30233H1 Transfusion of Nonautologous Whole Blood into Peripheral Vein, Percutaneous Approach (ICD-10-PCS; 2017-09-23)
PROC: 0DD98ZX Extraction of Duodenum, Via Natural or Artificial Opening Endoscopic, Diagnostic (ICD-10-PCS; principal; 2017-09-24 09:00)
DX: C78.4 Secondary malignant neoplasm of small intestine (principal); K31.1 Adult hypertrophic pyloric stenosis; D62 Acute posthemorrhagic anemia; N17.9 Acute kidney failure, unspecified; E87.1 Hypo-osmolality and hyponatremia; I85.10 Secondary esophageal varices without bleeding; K76.6 Portal hypertension; Z85.038 Personal history of other malignant neoplasm of large intestine; K31.89 Other diseases of stomach and duodenum; Z90.49 Acquired absence of other specified parts of digestive tract; K74.60 Unspecified cirrhosis of liver; N18.2 Chronic kidney disease, stage 2 (mild); K22.70 Barrett's esophagus without dysplasia; K64.4 Residual hemorrhoidal skin tags; E89.0 Postprocedural hypothyroidism
CPT/HCPCS: 36415; 36430; 71045-TC-FY; 74018-TC-FY; 74240-TC-FY; 76705-TC; 80053; 81003; 82150; 82272; 82378; 82747; 82977; 83540; 83550; 83605; 83615; 83690; 83735; 83930; 84100; 84252; 85014; 85025; 85027; 85044; 85610; 85730; 86140; 86850; 86900; 86901; 86922; 87086; 88305-TC; 88341-TC; 93005; 93010; 99283-25; 99285-25; P9058

== ENCOUNTER 2017-10-27 11:33 | Inpatient (IN) | payer OTHER, BC ==
[2017-10-27] MEDS ORDERED: SODIUM CHLORIDE 1,000 ML IV SCH ×2 (13:00→18:15)
[2017-10-27 13:31] LABS: BASO % 0.2 % (0-2.0); EOS % 0.2 % (0-4.5); HEMATOCRIT 23.1 % (32.4-45.2); HEMOGLOBIN 7.5 GM/dL (10.7-15.3); LYMPH % 4.6 % (8-40); MCH 27.1 pg (25.7-33.7); MCHC 32.3 g/dl (32.0-36.0); MEAN CELL VOLUME 83.8 fl (80-96); MEAN PLT VOLUME 7.3 fl (7.5-11.1); MONO % 4.5 % (3.8-10.2); NEUT % 90.5 % (42.8-82.8); PLATELET COUNT 354 K/MM3 (134-434); RBC 2.76 M/mm3 (3.60-5.2); RDW 17.7 % (11.6-15.6)
[2017-10-27 13:55] LABS: ALBUMIN 1.9 g/dl (3.4-5.0); ANION GAP 15 (8-16); BILIRUBIN,TOTAL 0.3 mg/dL (0.2-1.0); BLOOD UREA NITROGEN 25 mg/dL (7-18); CALCIUM 7.8 mg/dL (8.5-10.1); CHLORIDE 103 mmol/L (98-107); CO2 18 mmol/L (21-32); CREATININE 1.2 mg/dL (0.55-1.02); LIPASE 104 U/L (73-393); SGPT/ALT 10 U/L (12-78); SODIUM 136 mmol/L (136-145); TOT PROT 5.6 g/dl (6.4-8.2)
[2017-10-27 13:56] LABS: ALK PHOS 163 U/L (45-117)
[2017-10-27 14:13] LABS: POTASSIUM 4.2 mmol/L (3.5-5.1)
[2017-10-27 14:14] LABS: BILIRUBIN,DIRECT < 0.2 mg/dL (0.0-0.2)
[2017-10-27 14:16] LABS: SGOT/AST 30 U/L (15-37)
--- NOTE | 2017-10-27 15:20 | PDOC ---
History of Present Illness - General Chief Complaint: Abscess Boil Stated Complaint: WOUND CARE Time Seen by Provider: 10/27/17 12:49 History Source: Patient, Family Exam Limitations: No Limitations - History of Present Illness Initial Comments: 10/27/17 17:20 HPI: This 77-year-old female presents to the emergency room with complaints of abdominal pain and feeling weak. She has a history of colon cancer and had a laparoscopic: Colectomy in the past he also [facility] be [facility] as well. Now she has through one of the old surgical laparoscopic sites drainage that is greenish in color that started yesterday. Afebrile. Her GI physician is Dr. Dasilva who suggested emergency room and admission possibly to [facility], and her surgical attending for the colectomy was Dr. Torres however she did have the duodenal stenting placed in [facility] 2 months ago. Chief Compliant: Possible fistula versus abscess PMH: :colon CA FH: Pt has not recently traveled outside the country in the last 30 days. Pt has not been in contact with people who have traveled out of the country, in contact with people who have been ill with fever, n, v, d. SH: smoking use: NONE illicit drug use: NONE alcohol use: NONE PSH: duodenal stent, colectomy Home med use noted on OCT Allergies:NKA Immunizations: PCP: Dr. Tayler Fay 10/27/17 17:34 Past History - Past Medical History Allergies/Adverse Reactions: Allergies Allergy/AdvReac Type Severity Reaction Status Date / Time No Known Allergies Allergy Verified 10/27/17 12:14 Home Medications: Ambulatory Orders Levothyroxine [Synthroid -] 50 mcg PO DAILY@0700 tablet 05/25/17 Multivit-Min/Iron/Folic/Lutein [Centrum Silver Women Tablet] 1 each PO DAILY Pantoprazole Sodium [Protonix -] 40 mg PO BID 09/22/17 Ferrous Sulfate [Iron] 325 mg PO DAILY 10/27/17 Anemia: Yes Cancer: Yes (COLON CA AND TUMOR) COPD: No GI Disorders: Yes (Gerd) Disorders: Yes (ACUTE KIDNEY INJURY) Liver Disease: Yes (cirrhosis) Thyroid Disease: Yes - Surgical History Abdominal Surgery: Yes (04/2017) - Suicide/Smoking/Psychosocial Hx Smoking History: Never smoked Have you smoked in the past 12 months: No If you are a former smoker, when did you quit?: 50 YEARS AGO Information on smoking cessation initiated: No 'Breaking Loose' booklet given: 09/23/17 Hx Alcohol Use: No Drug/Substance Use Hx: No Substance Use Type: None Hx Substance Use Treatment: No Review of Systems - Review of Systems Able to Perform ROS?: Yes Comments:: 10/27/17 17:39 General statement: Not feeling well Hematology: neg history of bleeding/blood thinners Skin: Neg for lesions, rash, bruising. HEENT: Neg symptoms Respiratory: Neg SOB or difficulty in breathing Cardiac: Neg chest pain GI: + pain, n/v Trevor multiple abdominal surgeries : Neg problems on voiding MS: Neg for joint pain/stiffness, no edema Neuro: Neg for LOC, weakness, Endocrine: Neg for excess thirst/hunger, cold/heat intolerance, excess sweating Allergies: Neg for allergies *Physical Exam - Vital Signs Last Vital Signs Temp Pulse Resp BP Pulse Ox 97.5 F L 85 20 113/41 98 10/27/17 12:15 10/27/17 12:15 10/27/17 12:15 10/27/17 12:15 10/27/17 12:15 - Physical Exam Comments: 10/27/17 17:58 General Appearance: This ill-appearing 77-year-old female V/S: hemodynamically stable, afebrile Skin: WNL of pt's skin color, no signs of pallor, mottling, cyanosis Head:symmetrical Eyes: EOM's intact, PERRLA Ears: denies pain Nose: patent Throat: lips, teeth, gums, tongue, buccal mucos pink and moist Lungs: Chest symmetry equal. Cap refill <3 seconds. Lung sounds clear Cardiac: PMI at R 4MCL space, pos S1 and S2, regular rate. Abdomen: Soft, round, +tender with lap sites that are leaking green bile : Not observed Muscularskeletal: Gait steady, ambulated in to ER, no edema +PMS Neuro: AAOx3, cognitively intact, speech clear and appropriate. ED Treatment Course - LABORATORY CBC & Chemistry Diagram: 10/27/17 13:08 10/27/17 13:08 - ADDITIONAL ORDERS Additional order review: Laboratory Results 10/27/17 13:08 Sodium 136 Potassium 4.2 Chloride 103 Carbon Dioxide 18 L Anion Gap 15 BUN 25 H Creatinine 1.2 H Creat Clearance w eGFR 43.56 Calcium 7.8 L Total Bilirubin 0.3 D Direct Bilirubin < 0.2 AST 30 ALT 10 L Alkaline Phosphatase 163 H Total Protein 5.6 L Albumin 1.9 L Lipase 104 10/27/17 13:08 RBC 2.76 L MCV 83.8 MCHC 32.3 RDW 17.7 H MPV 7.3 L Neutrophils % 90.5 H D Lymphocytes % 4.6 L D Monocytes % 4.5 Eosinophils % 0.2 D Basophils % 0.2 - RADIOLOGY Radiology Studies Ordered: Category Date Time Status ABDOMEN & PELVIS CT WITH CONTR [CT] Stat CT Scan 10/27/17 12:58 Ordered CHEST X-RAY PORTABLE* [RAD] Stat Radiology 10/27/17 13:00 Completed Medical Decision Making - Medical Decision Making 10/27/17 17:59 Patient seen and examined. Family at the bedside. Patient is complaining of some leaking from the laparoscopic sites that were done recently for a colectomy and duodenal stenting. Patient is having green bile drainage from that site. Patient found to have a white count of 16 although she is afebrile. She is also found to have approximately a 9 x 10.5 x 12.5 and a meter masslike collection abscess on the right upper and right lower quadrants of the abdomen can containing gas low be wasn't extravagant gets extravagant cans of the oral contrast from the duodenal with additional small bowel loops and extends to the right abdominal wall giving it an abscess type formation. I've discussed the case with Dr. Dasilva who states that he will follow patient if the patient remains in the hospital however there is no further GI intervention for this patient at this time. I've also spoken with Dr. Espinoza, surgery who reviewed the CAT scan and also felt that the patient does not warrant any surgical intervention at this time here at [facility] and a fistula bag can be placed on this as well as an discussion with the oncologist and possibly palliative care. I spoke with Dr. Sayda Couch regarding the findings as well as the discussion with the other physicians and she expressed to admit the patient and have Dr. Gomez on board for oncology. Family and patient are aware. *DC/Admit/Observation/Transfer Diagnosis at time of Disposition: Duodenal mass, Colon neoplasm, Fistula - Discharge Dispostion Condition at time of disposition: Guarded Admit: Yes - Referrals Referrals: Sayda Segura [Primary Care Provider] - - Patient Instructions - Post Discharge Activity
[2017-10-27 15:23] LABS: GLUCOSE,RANDOM 106 mg/dL (74-106)
[2017-10-27] MEDS ORDERED: PIPERACILLIN/TAZOB 2.25 GM/50 ML PREMIX BAG IVPB ONE (18:03)
[2017-10-27] MEDS ORDERED: VANCOMYCIN 1,000 MG in DEXTROSE 5%-WATER - 250 ML IVPB ONE (18:03)
--- NOTE | 2017-10-27 18:11 | HP ---
Admitting History and Physical - Primary Care Physician PCP: Sayda Segura S - Admission Chief Complaint: weakness vomiting abdominal site drainage History of Present Illness: HPI: This 77-year-old female presents to the emergency room with complaints of abdominal pain and feeling weak. She has a history of colon cancer and had a laparoscopic Colectomy 6 months ago complicated with postop infections and never well enough for chemotherapy, also s/p a duodenal stent placed at [facility] for duodenal onbstruction sec to colon CA mets. Now she has through one of the old surgical laparoscopic sites drainage that is greenish in color that started yesterday. Afebrile. Her GI physician is Dr. Dasilva who suggested emergency room and admission possibly to [facility], and her surgical attending for the colectomy was Dr. Torres so pt came to ER here, accompanied by daughter. Denies pain/fever. Also vomited few times today/ History Source: Patient, Family Member, Medical Record Limitations to Obtaining History: No Limitations - Past Medical History Pulmonary: Yes: Other (right spontaneous pneumothorax managed with chest tube remotely) Gastrointestinal: Yes: Cancer (hepatic flexure adenocarcinoma with invasion into lymphatics), Constipation, Esophageal Varices, GERD (Whitfield's esophagus) Hepatobiliary: Yes: Cirrhosis (? SAMPSON), Cholelithiasis, Other (ASCITES POST SURGERY, HYPOALBUMINEMIA) Renal/: Yes: Renal Failure (resolved) Heme/Onc: Yes: Anemia Infectious Disease: Yes: Other (INTRAABDOMINAL ABSCESS POST SURGERY) Endocrine: Yes: Hyperthyroidism (treated with RAIU and now hypothyroid, recent benign biopsy) Dermatology: Yes: Cellulitis - Past Surgical History Past Surgical History: Yes: Colectomy, Colonoscopy, (C section x 2), Oopherectomy, Upper Endoscopy - Smoking History Smoking history: Never smoked Have you smoked in the past 12 months: No If you are a former smoker, when did you quit?: 50 YEARS AGO - Alcohol/Substance Use Hx Alcohol Use: No History of Substance Use: reports: None - Social History Usual Living Arrangement: Yes: With Child ADL: Independent History of Recent Travel: No Home Medications - Allergies Allergies/Adverse Reactions: Allergies Allergy/AdvReac Type Severity Reaction Status Date / Time No Known Allergies Allergy Verified 10/27/17 12:14 - Home Medications Home Medications: Ambulatory Orders Levothyroxine [Synthroid -] 50 mcg PO DAILY@0700 tablet 05/25/17 Multivit-Min/Iron/Folic/Lutein [Centrum Silver Women Tablet] 1 each PO DAILY Pantoprazole Sodium [Protonix -] 40 mg PO BID 09/22/17 Ferrous Sulfate [Iron] 325 mg PO DAILY 10/27/17 Acetaminophen [Tylenol .Regular Strength -] 325 mg PO Q4HPO tablet 10/31/17 Dextrose 5%-0.45% Saline [D5-1/2Ns -] 75 ml IV ASDIR 30 Days #30 infus.bag 10/31 Picc Line Flush [Picc Line Flush -] 8 ml IVPUSH PRN PRN ml 10/31/17 Piperacillin/Tazob 3.375 gm [Zosyn -] 3.375 gm IVPB Q8H-IV 10 Days #30 vial Family Disease History - Family Disease History Family Disease History: CA: Father (lung cancer), Mother (ovarian cancer), Brother (lung cancer), Other: Son, Daughter (lupus) Review of Systems - Review of Systems Constitutional: reports: Loss of Appetite, Weakness (general). denies: Chills, Fever, Lethargy Eyes: denies: Blind Spots, Blurred Vision, Double Vision HENT: denies: Ear Pain, Epistaxis Cardiovascular: denies: Chest Pain, Shortness of Breath Respiratory: denies: Cough, SOB Gastrointestinal: reports: Vomiting. denies: Abdominal Pain, Diarrhea Genitourinary: denies: Dysuria, Flank Pain Musculoskeletal: denies: Back Pain, Joint Swelling Integumentary: reports: Wound. denies: Rash Neurological: denies: Change in LOC, Change in Speech, Confusion, Dizziness Hematology/Lymphatic: denies: Easily Bruised, Excessive Bleeding Psychiatric: denies: Altered Sleep Pattern, Anxiety, Depression, Suicidal Physical Examination Vital Signs: Vital Signs Temperature 99.6 F 10/27/17 18:09 Pulse Rate 97 H 10/27/17 18:09 Respiratory Rate 18 10/27/17 18:09 Blood Pressure 127/53 10/27/17 18:09 O2 Sat by Pulse Oximetry (%) 98 10/27/17 18:09 Constitutional: Yes: No Distress, Calm Eyes: Yes: Conjunctiva Clear HENT: Yes: Atraumatic Neck: Yes: Supple Cardiovascular: Yes: Regular Rate and Rhythm Respiratory: Yes: CTA Bilaterally Gastrointestinal: Yes: Soft, Other (R tract draining yellow green fluid (from an old laparoscopy sites)). No: Distention, Tenderness Renal/: No: CVA Tenderness - Left, CVA Tenderness - Right Musculoskeletal: No: Joint Stiffness, Joint Swelling Extremities: No: Cold, Cool, Cyanosis Edema: No Integumentary: No: Pressure Ulcer, Rash, Venous Stasis Changes Neurological: Yes: WNL, Alert, Oriented ...Motor Strength: WNL Psychiatric: Yes: WNL, Oriented. No: Agitated, Suicidal Ideation Labs: CBC, BMP 10/27/17 13:08 10/27/17 13:08 Imaging - Results Chest X-ray: Report Reviewed Other: Report Reviewed Assessment/Plan 77-year-old female s/p R hemicolectomy for colon CA 6 months ago, s/p recent duodenal stent for obstruction sec to colon CA metastatic, admitted with vomiting and abdominal drainage throigh old laparoscopic site check abdomen CT GI and surgery eval NPO, IVF IV antibiotics ID eval surgery eval anemia: transfuse heme onc eval prognosis guarded d/w pt and daughter d/w ER staff; consider transfer to [facility] t time 75 min
[2017-10-27] MEDS ORDERED: VANCOMYCIN 1 GRAM (PRE-DOCKED) 1,000 MG/250 ML BAG IVPB ONE (18:16)
[2017-10-27] MEDS ORDERED: PIPERACILLIN/TAZOB 3.375 GM 3.375 GM/50 ML BAG IVPB ONE (18:16)
[2017-10-27] MEDS: PIPERACILLIN/TAZOB 3.375 GM 50 ML IVPB SCH (18:19)
[2017-10-27] MEDS ORDERED: PIPERACILLIN/TAZOB 2.25 GM 2.25 GM in DEXTROSE 5%-WATER - 50 ML IVPB ONE (18:35)
--- NOTE | 2017-10-27 21:22 | CON.GI ---
Consult Consult Specialty:: Gastroenterology Referred by:: Dr. Segura Reason for Consultation:: Pus draining from abdominal sinus tract - History of Present Illness Chief Complaint: RUQ pain with eruption of pus through sinus tract History of Present Illness: 77F with advanced colon cancer developed RUQ pain today and subsequent eruption of a sinus tract draining bile stained pus. Her familt squeezed to drain much of the pus but drainage was persistent. CT revealed a large periduodenal abscess containing contrast dye and a transtion zone with dilated stomach and esophagus. She vomited 4 times today. She was able to eat ravioli last night. She has a duodenal stent placed by Dr. Hudson Sherman at [facility] on 10/06/17. The CT also reveals a calcified gallstone in the peritoneum. Multiple sinus tracts are seen associated with this abscess. 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 Esophageal varices were also seen in the setting of Sexton's esophagus and an retained endoclip. She has had a yellow loose stool but no melena. She denies chills or severe or sharp pain. 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 Her postop course was complicated by abscesses requiring IR placed drainage catheters. She has never been well enough to allow for chemotherapy. 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 SAMPSON), Cholelithiasis, Other (ASCITES POST SURGERY, HYPOALBUMINEMIA) Renal/: Yes: Renal Failure (resolved) Heme/Onc: Yes: Anemia Infectious Disease: Yes: Other (INTRAABDOMINAL ABSCESS POST SURGERY) Endocrine: Yes: Hyperthyroidism (treated with RAIU and now hypothyroid, recent benign biopsy) Dermatology: Yes: Cellulitis - Past Surgical History Past Surgical History: Yes: Colectomy, Colonoscopy, (C section x 2), Oopherectomy, Upper Endoscopy Additional Surgical History: EGD with placement of metallic duodenal stent at [facility] - Alcohol/Substance Use Hx Alcohol Use: No History of Substance Use: reports: None - Smoking History Smoking history: Former smoker Have you smoked in the past 12 months: No If you are a former smoker, when did you quit?: 1970 - Social History Usual Living Arrangement: Alone ADL: Independent History of Recent Travel: No Home Medications - Allergies Allergies/Adverse Reactions: Allergies Allergy/AdvReac Type Severity Reaction Status Date / Time No Known Allergies Allergy Verified 10/27/17 12:14 - Home Medications Home Medications: Ambulatory Orders Levothyroxine [Synthroid -] 50 mcg PO DAILY@0700 tablet 05/25/17 Multivit-Min/Iron/Folic/Lutein [Centrum Silver Women Tablet] 1 each PO DAILY Pantoprazole Sodium [Protonix -] 40 mg PO BID 09/22/17 Ferrous Sulfate [Iron] 325 mg PO DAILY 10/27/17 Family Disease History - Family Disease History Family Disease History: CA: Father (lung cancer), Mother (ovarian cancer), Brother (lung cancer), Other: Son, Daughter (lupus) Review of Systems - Review of Systems Constitutional: reports: Loss of Appetite, Malaise, Unintentional Wgt. Loss Eyes: reports: No Symptoms HENT: reports: No Symptoms Neck: reports: No Symptoms Cardiovascular: reports: No Symptoms Respiratory: reports: Exercise Intolerance, SOB on Exertion Gastrointestinal: reports: Abdominal Pain, Vomiting Neurological: reports: No Symptoms Physical Exam-GI Vital Signs: Vital Signs Temperature 99.6 F 10/27/17 18:09 Pulse Rate 97 H 10/27/17 20:18 Respiratory Rate 18 10/27/17 20:18 Blood Pressure 121/54 10/27/17 20:18 O2 Sat by Pulse Oximetry (%) 99 10/27/17 20:18 CBC,CMP WBC 16.0 K/mm3 (4.0-10.0) H D 10/27/17 13:08 RBC 2.76 M/mm3 (3.60-5.2) L 10/27/17 13:08 Hgb 7.5 GM/dL (10.7-15.3) L 10/27/17 13:08 Hct 23.1 % (32.4-45.2) L 10/27/17 13:08 MCV 83.8 fl (80-96) 10/27/17 13:08 MCH 27.1 pg (25.7-33.7) 10/27/17 13:08 MCHC 32.3 g/dl (32.0-36.0) 10/27/17 13:08 RDW 17.7 % (11.6-15.6) H 10/27/17 13:08 Plt Count 354 K/MM3 (134-434) D 10/27/17 13:08 MPV 7.3 fl (7.5-11.1) L 10/27/17 13:08 Neutrophils % 90.5 % (42.8-82.8) H D 10/27/17 13:08 Lymphocytes % 4.6 % (8-40) L D 10/27/17 13:08 Monocytes % 4.5 % (3.8-10.2) 10/27/17 13:08 Eosinophils % 0.2 % (0-4.5) D 10/27/17 13:08 Basophils % 0.2 % (0-2.0) 10/27/17 13:08 Sodium 136 mmol/L (136-145) 10/27/17 13:08 Potassium 4.2 mmol/L (3.5-5.1) 10/27/17 13:08 Chloride 103 mmol/L (98-107) 10/27/17 13:08 Carbon Dioxide 18 mmol/L (21-32) L 10/27/17 13:08 Anion Gap 15 (8-16) 10/27/17 13:08 BUN 25 mg/dL (7-18) H 10/27/17 13:08 Creatinine 1.2 mg/dL (0.55-1.02) H 10/27/17 13:08 Creat Clearance w eGFR 43.56 (>60) 10/27/17 13:08 Random Glucose 106 mg/dL (74-106) 10/27/17 13:08 Calcium 7.8 mg/dL (8.5-10.1) L 10/27/17 13:08 Total Bilirubin 0.3 mg/dL (0.2-1.0) D 10/27/17 13:08 Direct Bilirubin < 0.2 mg/dL (0.0-0.2) 10/27/17 13:08 AST 30 U/L (15-37) 10/27/17 13:08 ALT 10 U/L (12-78) L 10/27/17 13:08 Alkaline Phosphatase 163 U/L (45-117) H 10/27/17 13:08 Total Protein 5.6 g/dl (6.4-8.2) L 10/27/17 13:08 Albumin 1.9 g/dl (3.4-5.0) L 10/27/17 13:08 Lipase 104 U/L (73-393) 10/27/17 13:08 Current Medications Generic Name Dose Route Start Last Admin Trade Name Freq PRN Reason Stop Dose Admin Sodium Chloride 1,000 mls @ 75 mls/hr 10/27/17 18:15 10/27/17 18:20 Normal Saline - IV 75 mls/hr ASDIR KARL Administration Vancomycin HCl 1,000 mg/ 250 mls @ 166.667 mls/hr 10/28/17 19:00 Dextrose IVPB DAILY@1900 [facility] Protocol Piperacillin/Tazobactam/Dextrose 50 mls @ 100 mls/hr 10/27/17 18:10 10/27/17 18:19 Zosyn 3.375gm Ivpb (Premix) IVPB 100 mls/hr Q8H-IV KARL Administration Protocol Levothyroxine Sodium 50 mcg 10/28/17 07:00 Synthroid - PO DAILY@0700 [facility] Multivitamins/Minerals 1 each 10/28/17 10:00 Theragran-M PO DAILY KARL Pantoprazole Sodium 40 mg 10/27/17 22:00 Protonix - PO BID KARL Constitutional: Yes: Calm Eyes: Yes: Conjunctiva Clear HENT: Yes: Atraumatic Neck: Yes: Supple Cardiovascular: Yes: Regular Rate and Rhythm Respiratory: Yes: CTA Bilaterally Gastrointestinal Inspection: Yes: Distention, Scars (healed laparoscopic and overlapping vertical suprapubic incisions), Other (right upper lateral abdomen sinus tract with fluctuance, C/S taken then the fluctuance was expressed and dressing placed) ...Auscultate: Yes: Hypoactive Bowel Sounds ...Palpate: Yes: Soft, Tenderness (only over sinus tract) ...Rectal Exam: Yes: Deferred Edema: No Peripheral Pulses WNL: Yes Neurological: Yes: Alert, Oriented Labs: CBC, BMP 10/27/17 13:08 10/27/17 13:08 Problem List - Problems (1) Colon neoplasm Assessment/Plan: I informed Marah and her son and daughter of the CT findings and advanced and serious nature of her malignancy and now abscesses related to tumor invasion and perforation of bowel and gallbladder. She expressed that she understands that she cannot be cured and will succumb to her illness after I answered her and her children's questions. She wishes to have DNR and hospice care. I have messaged Dr Segura. Code(s): D49.0 - NEOPLASM OF UNSPECIFIED BEHAVIOR OF DIGESTIVE SYSTEM (2) Abdominal abscess Assessment/Plan: I have cultured the discharge. Antibiotics started on ER. I will place order for IR to establish preferred drainage route to minimize fistulization. Will also keep NPO except for ice chips for this reason. She does not want surgery. Code(s): K65.1 - PERITONEAL ABSCESS (3) Anemia Code(s): D64.9 - ANEMIA, UNSPECIFIED Qualifiers: Qualified Code(s): D64.9 - Anemia, unspecified (4) Duodenal mass Code(s): K31.89 - OTHER DISEASES OF STOMACH AND DUODENUM (5) Fistula Code(s): L98.8 - OTH DISRD OF THE SKIN AND SUBCUTANEOUS TISSUE (6) Barretts esophagus Code(s): K22.70 - SEXTON'S ESOPHAGUS WITHOUT DYSPLASIA (7) Cholelithiasis Code(s): K80.20 - CALCULUS OF GALLBLADDER W/O CHOLECYSTITIS W/O OBSTRUCTION (8) Cirrhosis Code(s): K74.60 - UNSPECIFIED CIRRHOSIS OF LIVER (9) Esophageal varices Code(s): I85.00 - ESOPHAGEAL VARICES WITHOUT BLEEDING Assessment/Plan Hospice care Abscess drainage Antibiotics Analgesics [place] DNR - messaged Dr Segura.
[2017-10-27] MEDS: PANTOPRAZOLE 40 MG TABLET (FP) PO SCH (21:40)
[2017-10-27] MEDS ORDERED: ACETAMINOPHEN 325 MG TABLET (FP) PO PRN (21:42)
[2017-10-27] MEDS: ACETAMINOPHEN 325 MG TABLET (FP) PO SCH (22:11)
[2017-10-27] MEDS: oxyCODONE HCL 5 MG TABLET PO SCH (22:11)
[2017-10-27] MEDS: DEXTROSE 5%-0.45% SALINE 1,000 ML IV SCH (22:11)
[2017-10-27 22:48] VITALS: BMI 22.6
[2017-10-28] MEDS: oxyCODONE HCL 5 MG TABLET PO SCH ×6 (01:40→22:04)
[2017-10-28] MEDS: ACETAMINOPHEN 325 MG TABLET (FP) PO SCH ×6 (01:40→22:03)
[2017-10-28] MEDS ORDERED: PIPERACILLIN/TAZOB 3.375 GM 3.375 GM in DEXTROSE 5%-WATER - 50 ML IVPB ONE (02:00)
[2017-10-28] MEDS: LEVOTHYROXINE NA 50 MCG TABLET (FP) PO SCH (06:02)
--- NOTE | 2017-10-28 07:25 | PN ---
Progress Note, Physician Chief Complaint: admitted to ONC floor; awake alert NAD VSS feels weak and tired but no pain no vomiting CT reviewed; pt seen by GI; ONC consult placed; surgery reviewed CT and no surgical intervention warranted but will ask IR to drain abscess\ IV ATB per ID pt and daughter also do not want any aggressive intervention and wish only comfort care, DNR DNI and possibly hospice at home - Current Medication List Current Medications: Active Medications Acetaminophen (Tylenol -) 650 mg PO Q4H PRN PRN Reason: PAIN LEVEL 1 - 3 Last Admin: 10/28/17 06:03 Dose: 650 mg Acetaminophen (Tylenol -) 325 mg PO Q4HPO [facility] Last Admin: 10/28/17 06:02 Dose: Not Given Vancomycin HCl 1,000 mg/ (Dextrose) 250 mls @ 166.667 mls/hr IVPB DAILY@1900 [facility] PRN Reason: Protocol Piperacillin/Tazobactam/Dextrose (Zosyn 3.375gm Ivpb (Premix)) 50 mls @ 100 mls /hr IVPB Q8H-IV KARL PRN Reason: Protocol Last Admin: 10/27/17 18:19 Dose: 100 mls/hr Dextrose/Sodium Chloride (D5-1/2ns -) 1,000 mls @ 125 mls/hr IV ASDIR [facility] Last Admin: 10/27/17 22:11 Dose: 125 mls/hr Levothyroxine Sodium (Synthroid -) 50 mcg PO DAILY@0700 [facility] Last Admin: 10/28/17 06:02 Dose: 50 mcg Multivitamins/Minerals (Theragran-M) 1 each PO DAILY [facility] Oxycodone HCl (Roxicodone -) 5 mg PO Q4HPO [facility] Last Admin: 10/28/17 06:02 Dose: Not Given Pantoprazole Sodium (Protonix -) 40 mg PO BID [facility] Last Admin: 10/27/17 21:40 Dose: 40 mg - Objective Vital Signs: Vital Signs Temperature 98.3 F 10/27/17 22:38 Pulse Rate 90 10/27/17 22:38 Respiratory Rate 20 10/27/17 22:38 Blood Pressure 125/49 10/27/17 22:38 O2 Sat by Pulse Oximetry (%) 100 10/27/17 22:48 Constitutional: Yes: No Distress, Calm Eyes: Yes: Conjunctiva Clear HENT: Yes: Atraumatic Neck: Yes: Supple Cardiovascular: Yes: Regular Rate and Rhythm Respiratory: Yes: CTA Bilaterally Gastrointestinal: Yes: Soft. No: Distention, Tenderness Genitourinary: No: CVA Tenderness - Left, CVA Tenderness - Right, Hematuria Musculoskeletal: No: Joint Stiffness, Joint Swelling Extremities: No: Cold, Cool, Cyanosis Edema: No Integumentary: No: Rash, Venous Stasis Changes Neurological: Yes: WNL, Alert, Oriented, Weakness (general weakness but can ambulate few steps if needed) ...Motor Strength: WNL Psychiatric: Yes: WNL, Alert, Oriented. No: Agitated, Suicidal Ideation Labs: CBC, BMP 10/27/17 13:08 10/27/17 13:08 - ....Imaging Chest X-ray: Report Reviewed Cat Scan: Report Reviewed Other: Report Reviewed Assessment/Plan 77-year-old female s/p R hemicolectomy for colon CA 6 months ago, s/p recent duodenal stent for obstruction sec to colon CA metastatic, admitted with vomiting and abdominal drainage through old laparoscopic site R abdominal abscess abd biliary drain sec to metastatic local invasion anemia s/p transfusion NPO, IVF IV antibiotics anemia: transfused GI and heme onc f/u palliative care eval d/w pt and daughter t time 35 min
[2017-10-28] MEDS ORDERED: ONDANSETRON 4 MG/2 ML VIAL IVPB PRN (10:05)
[2017-10-28] MEDS: PIPERACILLIN/TAZOB 3.375 GM 50 ML IVPB SCH (10:15)
[2017-10-28] MEDS ORDERED: PIPERACILLIN/TAZOB 3.375 GM/50 ML PRE-DOCKED IVPB SCH (10:15)
--- NOTE | 2017-10-28 10:19 | PN ---
Progress Note (short form) - Note Progress Note: ID consult dictated imp/reccd 77 year old female- history of colon cancer, recent duodenal stent, now with abdominal abscess/fistula- admitted with vomiting, spontaneous drainage from her abdomen- first pus then greenish fluid ct scan confirms left abdominal abscess with possible fistula no fevers or chills seen by GI last night culture sent vancomycin and zosyn started less vomiting today +BM last night abdominal abscess probable fistula colon cancer continue zosyn f/u cultures IR for drain home hospice Problem List - Problems (1) Abdominal abscess Code(s): K65.1 - PERITONEAL ABSCESS (2) Fistula Code(s): L98.8 - OTH DISRD OF THE SKIN AND SUBCUTANEOUS TISSUE (3) Colon neoplasm Code(s): D49.0 - NEOPLASM OF UNSPECIFIED BEHAVIOR OF DIGESTIVE SYSTEM
[2017-10-28] MEDS: PANTOPRAZOLE 40 MG TABLET (FP) PO SCH ×2 (10:26→21:56)
[2017-10-28] MEDS: MULTIVITAMINS THER W-MINERALS COMBO TABLET (FP) PO SCH (10:26)
--- NOTE | 2017-10-28 10:56 | CONS ---
DATE OF CONSULTATION: REQUESTING PHYSICIAN: Sayda Segura MD HISTORY: This is a 77-year-old woman. She presented to the emergency room yesterday with complaints of abdominal pain and vomiting. On Friday she noted that she started having spontaneous drainage from one of the prior laparoscopic sites of her prior hemicolectomy. She started having purulence from the site followed by greenish fluid. There were no fevers or chills. She presented to the emergency room here where she was admitted. She was noted to have a white count of 16,000. She had a CAT scan of her abdomen and pelvis done in the emergency room that showed a 9 x 10 x 12.5 collection in the right upper and right lower quadrant of the abdomen with intraluminal contrast and gas locules as well she has a 4.5 x 1.5 collection within the right oblique musculature. She was started on vancomycin and Zosyn and admitted for further evaluation. She reports her vomiting has diminished. She had minimal vomiting this morning. She is having bowel movements and had a bowel movement last night. She has had no fevers or chills. Otherwise, she is resting comfortably. She denies cough. She denies shortness of breath. PAST MEDICAL HISTORY: Notable for colon cancer. She is status post right hemicolectomy in April 2017. This was complicated by a postoperative abscess. She ultimately was found to have a recurrence of her cancer at the duodenal sweep in September of this year. She was sent to [facility] where she had a duodenal stent, and she was able to tolerate orals at that time. Her past medical history is notable for the colon cancer with right hemicolectomy complicated by abscess and renal failure, recurrence of the cancer in September 2017 with duodenal stent placement. She has a history of liver cirrhosis secondary to SAMPSON with esophageal varices, Whitfield esophagus, hypothyroidism status post treatment now hypothyroid, history of spontaneous right pneumothorax. PAST SURGICAL HISTORY: Notable for right hemicolectomy, colon resection, section x2, and oophorectomy. SOCIAL HISTORY: She was [place] the [place] She is . She lives with her daughter. Former smoker. She quit in 1969. No history of substance use. FAMILY HISTORY: Notable for ovarian cancer in her mother. Lung cancer in a sibling and father. MEDICATIONS: At the time of admission include iron, Protonix, vitamins, and Synthroid. ALLERGIES: No known drug allergies. REVIEW OF SYSTEMS: She had a bowel movement yesterday. Her vomiting has diminished. There are no fever or chills. She has no cough or shortness of breath. Her abdominal pain is improved. PHYSICAL EXAMINATION: General: She is awake and alert. Resting comfortably. She is a thin woman in no acute distress. Vital Signs: Temperature 98.3. She weighs 124 pounds, pulse 90, blood pressure 125/49, respiratory rate 20. HEENT: She is normocephalic. Her eyes are anicteric. Neck: Supple. Lungs: Clear to auscultation. She has diminished breath sounds at the bases. Heart: Regular rate and rhythm. Abdomen: Firm. She has minimal tenderness. On the right side, she has a small opening with some white drainage. There is no surrounding erythema. Extremities: Without edema. LABORATORIES: Notable for a white count of 16,000, hemoglobin 7.5, platelets 354. Her BUN 25, creatinine 1.2 with an albumin 1.9. She is currently receiving a blood transfusion. Blood and urine cultures are pending. Chest x-ray shows no acute disease. CAT scan findings are as previously stated. In summary, this is a 77-year-old woman with abdominal abscess, probable fistula, colon cancer. Would continue Zosyn at this time. No need for vancomycin. There does not appear to be a cellulitic component. Most likely, these are enterics and gram-negatives related to her bowel shabbir. She has no history of resistant organisms. Would follow up cultures. IR consult has been placed for drainage. Plans are being made for home hospice. Further recommendations to follow. GILBERT MENDOZA M.D. [id number]
[2017-10-28 11:24] LABS: BASO % 0.2 % (0-2.0); EOS % 0.1 % (0-4.5); HEMATOCRIT 28.2 % (32.4-45.2); HEMOGLOBIN 9.5 GM/dL (10.7-15.3); MCH 27.5 pg (25.7-33.7); MCHC 33.8 g/dl (32.0-36.0); MEAN CELL VOLUME 81.5 fl (80-96); MEAN PLT VOLUME 7.5 fl (7.5-11.1); MONO % 3.4 % (3.8-10.2); NEUT % 93.3 % (42.8-82.8); PLATELET COUNT 345 K/MM3 (134-434); RBC 3.46 M/mm3 (3.60-5.2); RDW 15.6 % (11.6-15.6); WHITE BLOOD COUNT 18.4 K/mm3 (4.0-10.0)
[2017-10-28 11:36] LABS: INR 1.41 (0.82-1.09); PROTHROMBIN TIME (PATIENT) 15.9 SEC (9.98-11.88)
[2017-10-28 11:44] LABS: ALBUMIN 1.8 g/dl (3.4-5.0); ANION GAP 11 (8-16); BILIRUBIN,TOTAL 2.4 mg/dL (0.2-1.0); BLOOD UREA NITROGEN 32 mg/dL (7-18); CHLORIDE 105 mmol/L (98-107); CO2 19 mmol/L (21-32); CREATININE 1.3 mg/dL (0.55-1.02); GLUCOSE,RANDOM 114 mg/dL (74-106); POTASSIUM 3.7 mmol/L (3.5-5.1); SGOT/AST 21 U/L (15-37); SGPT/ALT 6 U/L (12-78); SODIUM 135 mmol/L (136-145); TOT PROT 4.9 g/dl (6.4-8.2)
[2017-10-28] MEDS ORDERED: FUROSEMIDE 40 MG/4 ML INJECTABLE VIAL IVPUSH ONE (11:45)
[2017-10-28 11:47] LABS: ALK PHOS 147 U/L (45-117)
[2017-10-28] MEDS: PIPERACILLIN/TAZOB 3.375 GM 3.375 GM in DEXTROSE 5%-WATER - 50 ML IVPB SCH ×2 (12:00→18:11)
[2017-10-28 14:17] LABS: URINE APPEARANCE SLCLOUDY; URINE BILIRUBIN NEGATIVE (<2.0 mg/dL); URINE BLOOD NEGATIVE (NEGATIVE); URINE COLOR YELLOW; URINE GLUCOSE (UA) NEGATIVE (NEGATIVE); URINE KETONE NEGATIVE (NEGATIVE); URINE LEUK ESTERASE NEGATIVE (NEGATIVE); URINE NITRITE NEGATIVE (NEGATIVE); URINE PROTEIN NEGATIVE (NEGATIVE); URINE UROBILINOGEN NEGATIVE mg/dL (0.2-1.0)
--- NOTE | 2017-10-28 17:04 | EKG ---
Test Reason : Blood Pressure : / mmHG Vent. Rate : 083 BPM Atrial Rate : 083 BPM P-R Int : 126 ms QRS Dur : 070 ms QT Int : 404 ms P-R-T Axes : 002 -38 065 degrees QTc Int : 474 ms NORMAL SINUS RHYTHM LEFT AXIS DEVIATION POSSIBLE ANTEROLATERAL INFARCT (CITED ON OR BEFORE 17-MAR-2017) ABNORMAL ECG WHEN COMPARED WITH ECG OF 22-SEP-2017 16:45, NONSPECIFIC T WAVE ABNORMALITY NO LONGER EVIDENT IN INFERIOR LEADS Confirmed by MD Allie, Tiago ([id number]) on 10/28/2017 5:04:26 PM Referred By: Confirmed By:Tiago Kelley MD
[2017-10-28] MEDS ORDERED: PT OWN MED DRAWER 7, Y5N ONE (17:56)
--- NOTE | 2017-10-28 18:17 | PN ---
GI Progress Note Subjective: GI NOte: Drain placed by Dr. Tristan is producing large volume of bile stained pus. Marah fells better since it was placed. Vomited again today. She is opting for hospice at home. - Objective Vital Signs: Vital Signs Temperature 97.3 F L 10/28/17 15:50 Pulse Rate 74 10/28/17 15:50 Respiratory Rate 20 10/28/17 15:50 Blood Pressure 106/49 10/28/17 15:50 O2 Sat by Pulse Oximetry (%) 97 10/28/17 14:22 Laboratory Tests 10/28/17 10/28/17 10:35 10:35 WBC 18.4 H Hct 28.2 L D Total Bilirubin 2.4 H D Albumin 1.8 L Constitutional: Calm, Thin Gastrointestinal Inspection: Yes: Other (right sinus has minimal drainage) ...Auscultate: Yes: Hypoactive Bowel Sounds ...Palpate: Yes: Soft Labs: CBC, BMP 10/28/17 10:35 10/28/17 10:35 INR, PTT INR 1.41 (0.82-1.09) H D 10/28/17 10:35 Problem List - Problems (1) Colon neoplasm Assessment/Plan: Advanced invasive overwhelming colon cancer with erosion through the duodenal wall and likely into the gallbladder leading to dropped gallstone. Drain was placed as a palliative measure. Continue antibiotics. Has been using only Tylenol as analgesia. Bilirubin rising. Prognosis grim. Code(s): D49.0 - NEOPLASM OF UNSPECIFIED BEHAVIOR OF DIGESTIVE SYSTEM (2) Abdominal abscess Code(s): K65.1 - PERITONEAL ABSCESS (3) Anemia Code(s): D64.9 - ANEMIA, UNSPECIFIED Qualifiers: Qualified Code(s): D64.9 - Anemia, unspecified (4) Duodenal mass Code(s): K31.89 - OTHER DISEASES OF STOMACH AND DUODENUM (5) Fistula Code(s): L98.8 - OTH DISRD OF THE SKIN AND SUBCUTANEOUS TISSUE (6) Barretts esophagus Code(s): K22.70 - SEXTON'S ESOPHAGUS WITHOUT DYSPLASIA (7) Cholelithiasis Code(s): K80.20 - CALCULUS OF GALLBLADDER W/O CHOLECYSTITIS W/O OBSTRUCTION (8) Cirrhosis Code(s): K74.60 - UNSPECIFIED CIRRHOSIS OF LIVER (9) Esophageal varices Code(s): I85.00 - ESOPHAGEAL VARICES WITHOUT BLEEDING
[2017-10-28] MEDS ORDERED: VANCOMYCIN 1,000 MG in DEXTROSE 5%-WATER - 250 ML IVPB SCH (19:00)
--- NOTE | 2017-10-28 19:31 | PN ---
Progress Note (short form) - Note Progress Note: Patient seen and examined Notes reviewed Drainage via J-P tube Discussed with patient and family at bedside. Will speak with other physicians
[2017-10-28] MEDS: DEXTROSE 5%-0.45% SALINE 1,000 ML IV SCH (21:56)
[2017-10-29] MEDS ORDERED: PT OWN MED DRAWER 7, Y5N ONE ×2 (02:14→18:24)
[2017-10-29] MEDS: PIPERACILLIN/TAZOB 3.375 GM 3.375 GM in DEXTROSE 5%-WATER - 50 ML IVPB SCH ×3 (02:19→19:45)
[2017-10-29] MEDS: oxyCODONE HCL 5 MG TABLET PO SCH ×6 (02:20→21:58)
[2017-10-29] MEDS: DEXTROSE 5%-0.45% SALINE 1,000 ML IV SCH ×3 (02:20→21:55)
[2017-10-29] MEDS: ACETAMINOPHEN 325 MG TABLET (FP) PO SCH ×6 (02:20→21:59)
--- NOTE | 2017-10-29 06:06 | PN ---
Progress Note, Physician Chief Complaint: IR placed drain IV ATB per ID; cultures pending - Current Medication List Current Medications: Active Medications Acetaminophen (Tylenol -) 650 mg PO Q4H PRN PRN Reason: PAIN LEVEL 1 - 3 Last Admin: 10/28/17 06:03 Dose: 650 mg Acetaminophen (Tylenol -) 325 mg PO Q4HPO [facility] Last Admin: 10/29/17 02:20 Dose: Not Given Dextrose/Sodium Chloride (D5-1/2ns -) 1,000 mls @ 125 mls/hr IV ASDIR [facility] Last Admin: 10/29/17 02:20 Dose: 125 mls/hr Piperacillin Sod/Tazobactam (Sod 3.375 gm/ Dextrose) 50 mls @ 100 mls/hr IVPB Q8H-IV [facility] Last Admin: 10/29/17 02:19 Dose: 100 mls/hr Levothyroxine Sodium (Synthroid -) 50 mcg PO DAILY@0700 [facility] Last Admin: 10/28/17 06:02 Dose: 50 mcg Multivitamins/Minerals (Theragran-M) 1 each PO DAILY [facility] Last Admin: 10/28/17 10:26 Dose: 1 each Ondansetron HCl (Zofran Injection) 8 mg IVPB Q6H PRN PRN Reason: NAUSEA AND/OR VOMITING Last Admin: 10/28/17 10:20 Dose: 8 mg Oxycodone HCl (Roxicodone -) 5 mg PO Q4HPO [facility] Last Admin: 10/29/17 02:20 Dose: Not Given Pantoprazole Sodium (Protonix -) 40 mg PO BID [facility] Last Admin: 10/28/17 21:56 Dose: 40 mg - Objective Vital Signs: Vital Signs Temperature 97.7 F 10/29/17 01:34 Pulse Rate 84 10/29/17 01:34 Respiratory Rate 20 10/29/17 01:34 Blood Pressure 120/55 10/29/17 01:34 O2 Sat by Pulse Oximetry (%) 98 10/28/17 22:00 Constitutional: Yes: No Distress, Calm Eyes: Yes: Conjunctiva Clear HENT: Yes: Atraumatic Neck: Yes: Supple Cardiovascular: Yes: Regular Rate and Rhythm Respiratory: Yes: CTA Bilaterally Gastrointestinal: Yes: Soft. No: Distention, Tenderness Genitourinary: No: CVA Tenderness - Left, CVA Tenderness - Right Musculoskeletal: No: Joint Stiffness, Joint Swelling Extremities: No: Cold, Cool Edema: No Integumentary: No: Rash, Venous Stasis Changes Neurological: Yes: WNL, Alert, Oriented ...Motor Strength: WNL Psychiatric: Yes: WNL, Alert, Oriented. No: Agitated, Suicidal Ideation Labs: CBC, BMP 10/28/17 10:35 10/28/17 10:35 INR, PTT INR 1.41 (0.82-1.09) H D 10/28/17 10:35 - ....Imaging Other: Report Reviewed Assessment/Plan 77-year-old female s/p R hemicolectomy for colon CA 6 months ago, s/p recent duodenal stent for obstruction sec to colon CA metastatic, admitted with vomiting and abdominal drainage through old laparoscopic site R abdominal abscess and biliary drainage sec to metastatic local invasion - IR drainage anemia s/p transfusion NPO, IVF IV antibiotics anemia: transfused GI and heme onc f/u palliative care eval; DNR DNI d/w pt and daughter; pt exploring DC options Claude/ home with hospice; pt and family seem inclined towards home hospice but they would want to continue all IVs given in H - d/w CM t time 35 min
[2017-10-29] MEDS: LEVOTHYROXINE NA 50 MCG TABLET (FP) PO SCH (06:27)
[2017-10-29 07:32] LABS: BASO % 0.4 % (0-2.0); EOS % 1.3 % (0-4.5); HEMATOCRIT 26.4 % (32.4-45.2); HEMOGLOBIN 9.1 GM/dL (10.7-15.3); LYMPH % 4.5 % (8-40); MCH 27.6 pg (25.7-33.7); MCHC 34.3 g/dl (32.0-36.0); MEAN CELL VOLUME 80.3 fl (80-96); MEAN PLT VOLUME 7.2 fl (7.5-11.1); MONO % 5.4 % (3.8-10.2); NEUT % 88.4 % (42.8-82.8); PLATELET COUNT 269 K/MM3 (134-434); RBC 3.29 M/mm3 (3.60-5.2); RDW 16.2 % (11.6-15.6); WHITE BLOOD COUNT 12.1 K/mm3 (4.0-10.0)
[2017-10-29 08:00] LABS: ALBUMIN 1.7 g/dl (3.4-5.0); ALK PHOS 133 U/L (45-117); ANION GAP 12 (8-16); BILIRUBIN,TOTAL 0.6 mg/dL (0.2-1.0); BLOOD UREA NITROGEN 33 mg/dL (7-18); CALCIUM 7.2 mg/dL (8.5-10.1); CHLORIDE 105 mmol/L (98-107); CO2 20 mmol/L (21-32); CREATININE 1.5 mg/dL (0.55-1.02); GLUCOSE,RANDOM 120 mg/dL (74-106); POTASSIUM 3.2 mmol/L (3.5-5.1); SGOT/AST 22 U/L (15-37); SGPT/ALT 9 U/L (12-78); SODIUM 137 mmol/L (136-145); TOT PROT 4.8 g/dl (6.4-8.2)
[2017-10-29] MEDS ORDERED: FUROSEMIDE 40 MG/4 ML INJECTABLE VIAL IVPUSH ONE (09:45)
[2017-10-29] MEDS: PANTOPRAZOLE 40 MG TABLET (FP) PO SCH ×2 (10:43→21:58)
[2017-10-29] MEDS: MULTIVITAMINS THER W-MINERALS COMBO TABLET (FP) PO SCH (10:43)
[2017-10-29] MEDS ORDERED: POTASSIUM ACETATE 10 MEQ in SODIUM CHLORIDE 100 ML IVPB SCH (12:30)
--- NOTE | 2017-10-29 12:39 | PN ---
GI Progress Note Subjective: GI NOte: Feels much better today. Drain is functioning well and has yielded 1440cc. NO vomiting today. Has opted for private duty nurse to allow for IV fluids and antibiotics at home. - Objective Vital Signs: Vital Signs Temperature 97.5 F L 10/29/17 09:00 Pulse Rate 79 10/29/17 09:00 Respiratory Rate 20 10/29/17 09:00 Blood Pressure 122/57 10/29/17 09:00 O2 Sat by Pulse Oximetry (%) 98 10/28/17 22:00 Laboratory Tests 10/28/17 10/29/17 10/29/17 10:35 06:00 06:00 WBC 18.4 H 12.1 H D BUN 33 H Creatinine 1.5 H Total Bilirubin 0.6 D Constitutional: Calm Gastrointestinal Inspection: Yes: Other (RUQ drain functional, no leaking onto skin) ...Auscultate: Yes: Normoactive Bowel Sounds ...Palpate: Yes: Soft, Other (nontender) Labs: CBC, BMP 10/29/17 06:00 10/29/17 06:00 INR, PTT INR 1.41 (0.82-1.09) H D 10/28/17 10:35 Problem List - Problems (1) Colon neoplasm Code(s): D49.0 - NEOPLASM OF UNSPECIFIED BEHAVIOR OF DIGESTIVE SYSTEM (2) Abdominal abscess Code(s): K65.1 - PERITONEAL ABSCESS (3) Anemia Code(s): D64.9 - ANEMIA, UNSPECIFIED Qualifiers: Qualified Code(s): D64.9 - Anemia, unspecified (4) Duodenal mass Code(s): K31.89 - OTHER DISEASES OF STOMACH AND DUODENUM (5) Fistula Code(s): L98.8 - OTH DISRD OF THE SKIN AND SUBCUTANEOUS TISSUE (6) Barretts esophagus Code(s): K22.70 - SEXTON'S ESOPHAGUS WITHOUT DYSPLASIA (7) Cholelithiasis Code(s): K80.20 - CALCULUS OF GALLBLADDER W/O CHOLECYSTITIS W/O OBSTRUCTION (8) Cirrhosis Code(s): K74.60 - UNSPECIFIED CIRRHOSIS OF LIVER (9) Esophageal varices Code(s): I85.00 - ESOPHAGEAL VARICES WITHOUT BLEEDING
[2017-10-29] MEDS: POTASSIUM CHLORIDE 10 MEQ in SODIUM CHLORIDE 100 ML IVPB SCH ×3 (13:38→16:37)
--- NOTE | 2017-10-29 15:18 | PN ---
Progress Note (short form) - Note Progress Note: no fevers alert nausea NPO drain placed yesterday- large volume of bilious green fluid in JLP drain Vital Signs Period Temp Pulse Resp BP Sys/Benavides Pulse Ox Last 24 Hr 97.3 F-98.8 F 74-90 20-20 105-149/49-80 97-98 cor-rrr llungs clear abd soft,+drain +marcia in place with green bilious fluid no erythema or fluctuance on palpation ext no edema CBC, BMP 10/29/17 06:00 10/29/17 06:00 Microbiology 10/27/17 13:04 Blood - Peripheral Venous Blood Culture - Preliminary NO GROWTH OBTAINED AFTER 48 HOURS, INCUBATION TO CONTINUE FOR 3 DAYS. 10/27/17 13:04 Blood - Peripheral Venous Blood Culture - Preliminary NO GROWTH OBTAINED AFTER 48 HOURS, INCUBATION TO CONTINUE FOR 3 DAYS. 10/27/17 20:45 Abdomen Gram Stain - Final 10/27/17 20:45 Abdomen Wound Culture - Preliminary Streptococcus Viridans a/p- perforation with fistula drain in place cultures pending colon cancer continue zosyn f/u cultures decisions about hospice being explored f/u cultures continue antibiotics for now d/w family at length d/w GI d/w PMD Problem List - Problems (1) Abdominal abscess Code(s): K65.1 - PERITONEAL ABSCESS (2) Fistula Code(s): L98.8 - OTH DISRD OF THE SKIN AND SUBCUTANEOUS TISSUE (3) Colon neoplasm Code(s): D49.0 - NEOPLASM OF UNSPECIFIED BEHAVIOR OF DIGESTIVE SYSTEM
[2017-10-29 16:24] LABS: CARCINOEMBRYONIC ANTIGEN 2.4 ng/mL (0.0-4.7)
[2017-10-30] MEDS: oxyCODONE HCL 5 MG TABLET PO SCH ×6 (01:21→21:21)
[2017-10-30] MEDS: ACETAMINOPHEN 325 MG TABLET (FP) PO SCH ×6 (01:21→21:20)
[2017-10-30] MEDS: PIPERACILLIN/TAZOB 3.375 GM 3.375 GM in DEXTROSE 5%-WATER - 50 ML IVPB SCH ×3 (01:22→18:32)
[2017-10-30] MEDS: LEVOTHYROXINE NA 50 MCG TABLET (FP) PO SCH (06:14)
[2017-10-30 07:53] LABS: BASO % 0.6 % (0-2.0); EOS % 1.8 % (0-4.5); HEMATOCRIT 26.5 % (32.4-45.2); HEMOGLOBIN 9.4 GM/dL (10.7-15.3); LYMPH % 5.4 % (8-40); MCH 28.7 pg (25.7-33.7); MCHC 35.4 g/dl (32.0-36.0); MEAN CELL VOLUME 81.1 fl (80-96); MONO % 6.7 % (3.8-10.2); NEUT % 85.5 % (42.8-82.8); PLATELET COUNT 231 K/MM3 (134-434); RBC 3.27 M/mm3 (3.60-5.2); RDW 16.6 % (11.6-15.6); WHITE BLOOD COUNT 10.2 K/mm3 (4.0-10.0)
[2017-10-30 08:00] LABS: ALBUMIN 1.6 g/dl (3.4-5.0); ANION GAP 13 (8-16); BLOOD UREA NITROGEN 27 mg/dL (7-18); CALCIUM 7.3 mg/dL (8.5-10.1); CHLORIDE 104 mmol/L (98-107); CO2 20 mmol/L (21-32); GLUCOSE,RANDOM 96 mg/dL (74-106); POTASSIUM 3.1 mmol/L (3.5-5.1); SGOT/AST 20 U/L (15-37); SGPT/ALT 6 U/L (12-78); SODIUM 137 mmol/L (136-145)
[2017-10-30 08:01] LABS: ALK PHOS 159 U/L (45-117); BILIRUBIN,TOTAL 0.5 mg/dL (0.2-1.0); CREATININE 1.5 mg/dL (0.55-1.02); TOT PROT 4.9 g/dl (6.4-8.2)
--- NOTE | 2017-10-30 09:29 | PN ---
Progress Note, Physician Chief Complaint: in bed awake alert NAD no new c/o no pain afebrile meds consults tests reviewed and d/w pt and daughter\ they do not want [facility] but they would want to continue home IVF and IV ATB dw GI and ID about further management daughter said she will have a private nurse for home infusion; she needs to have also labs done 1-2 times a week, will arrange home blood drawing d/w CM and palliative care extensively - Current Medication List Current Medications: Active Medications Acetaminophen (Tylenol -) 650 mg PO Q4H PRN PRN Reason: PAIN LEVEL 1 - 3 Last Admin: 10/28/17 06:03 Dose: 650 mg Acetaminophen (Tylenol -) 325 mg PO Q4HPO [facility] Last Admin: 10/30/17 06:14 Dose: 325 mg Piperacillin Sod/Tazobactam (Sod 3.375 gm/ Dextrose) 50 mls @ 100 mls/hr IVPB Q8H-IV [facility] Last Admin: 10/30/17 01:22 Dose: 100 mls/hr Potassium Chloride/Dextrose/Sod Cl (D5-1/2ns+10 Meq Kcl -) 10 meq in 1,000 mls @ 75 mls/hr IV ASDIR [facility] Potassium Chloride (Potassium Chloride 10 Meq Premix Ivpb -) 10 meq in 100 mls @ 100 mls/hr IVPB Q60M [facility] Stop: 10/30/17 12:29 Levothyroxine Sodium (Synthroid -) 50 mcg PO DAILY@0700 [facility] Last Admin: 10/30/17 06:14 Dose: 50 mcg Multivitamins/Minerals (Theragran-M) 1 each PO DAILY [facility] Last Admin: 10/29/17 10:43 Dose: 1 each Ondansetron HCl (Zofran Injection) 8 mg IVPB Q6H PRN PRN Reason: NAUSEA AND/OR VOMITING Last Admin: 10/28/17 10:20 Dose: 8 mg Oxycodone HCl (Roxicodone -) 5 mg PO Q4HPO [facility] Last Admin: 10/30/17 06:13 Dose: 5 mg Pantoprazole Sodium (Protonix -) 40 mg PO BID [facility] Last Admin: 10/29/17 21:58 Dose: 40 mg - Objective Vital Signs: Vital Signs Temperature 97.8 F 10/30/17 06:00 Pulse Rate 76 10/30/17 06:00 Respiratory Rate 20 10/30/17 06:00 Blood Pressure 152/68 10/30/17 06:00 O2 Sat by Pulse Oximetry (%) 97 10/29/17 21:00 Constitutional: Yes: No Distress, Calm Eyes: Yes: Conjunctiva Clear HENT: Yes: Atraumatic Neck: Yes: Supple Cardiovascular: Yes: Regular Rate and Rhythm Respiratory: Yes: CTA Bilaterally Gastrointestinal: Yes: Soft, Other (IR bag draiange). No: Distention Genitourinary: No: CVA Tenderness - Left, CVA Tenderness - Right Musculoskeletal: No: Joint Stiffness, Joint Swelling Extremities: No: Cold, Cool Edema: No Integumentary: No: Rash, Venous Stasis Changes Neurological: Yes: WNL, Alert, Oriented ...Motor Strength: WNL Psychiatric: Yes: WNL, Alert, Oriented. No: Agitated, Suicidal Ideation Labs: CBC, BMP 10/30/17 06:00 10/30/17 06:00 INR, PTT INR 1.41 (0.82-1.09) H D 10/28/17 10:35 - ....Imaging Other: Report Reviewed Assessment/Plan 77-year-old female s/p R hemicolectomy for colon CA 6 months ago, s/p recent duodenal stent for obstruction sec to colon CA metastatic, admitted with vomiting and abdominal drainage through old laparoscopic site R abdominal abscess and biliary drainage sec to metastatic local invasion - IR drainage anemia s/p transfusion IVF IV antibiotics anemia: transfused dry mouth: po ice chips GI and heme onc f/u palliative care eval; DNR DNI d/w pt and daughter; pt exploring DC options [facility]/ home with hospice; pt and family seem inclined towards home hospice but they would want to continue all IVs given in H - d/w CM t time 45 min
[2017-10-30] MEDS ORDERED: KCL 10 MEQ IVPB 10 MEQ/100 ML INFUS.BAG IVPB SCH (09:30)
[2017-10-30] MEDS ORDERED: PT OWN MED DRAWER 7, Y5N ONE ×2 (10:35→18:17)
[2017-10-30] MEDS: D5-1/2NS+10 MEQ KCL - 10 MEQ/1,000 ML INFUS.BAG IV SCH (10:51)
[2017-10-30] MEDS: MULTIVITAMINS THER W-MINERALS COMBO TABLET (FP) PO SCH (10:52)
[2017-10-30] MEDS: PANTOPRAZOLE 40 MG TABLET (FP) PO SCH ×2 (10:52→21:21)
[2017-10-30] MEDS: POTASSIUM CHLORIDE 10 MEQ in SODIUM CHLORIDE 100 ML IVPB SCH ×3 (11:42→17:30)
--- NOTE | 2017-10-30 11:57 | CON.PULM ---
Consult Consult Specialty:: PULM/CCM Referred by:: BALWINDER Reason for Consultation:: SOB - History of Present Illness Chief Complaint: SOB History of Present Illness: 77 F, advanced adenocarcinoma of the colon, previous right hemicolectomy, COPD, Sexton's esophagus, esophageal varices, and recent placement of IR guided biliary drain with a large volume of dark green drainage. Patient has chronic bronchitis and does have a mild dry chronic cough due to known COPD. CXR: bilateral infiltrates in the bases and RUL. No hemoptysis. She is currently comfortable on RA. She is on Zosyn for ABX coverage. - History Source History Provided By: Patient Limitations to Obtaining History: No Limitations - Past Medical History Pulmonary: Yes: Other (right spontaneous pneumothorax managed with chest tube remotely) Gastrointestinal: Yes: Cancer (hepatic flexure adenocarcinoma with invasion into lymphatics), Constipation, Esophageal Varices, GERD (Sexton's esophagus), GI Bleed (from duodenal invasion by colon cancer which also caused obstruction of the duodenal sweep) Hepatobiliary: Yes: Cirrhosis (? SAMPSON), Cholelithiasis, Other (ASCITES POST SURGERY, HYPOALBUMINEMIA) Renal/: Yes: Renal Failure (resolved) Infectious Disease: Yes: Other (INTRAABDOMINAL ABSCESS POST SURGERY) Endocrine: Yes: Hyperthyroidism (treated with RAIU and now hypothyroid, recent benign biopsy) Dermatology: Yes: Cellulitis - Past Surgical History Past Surgical History: Yes: Colectomy, Colonoscopy, (C section x 2), Oopherectomy, Upper Endoscopy Additional Surgical History: EGD with placement of metallic duodenal stent at [facility] - Alcohol/Substance Use Hx Alcohol Use: No History of Substance Use: reports: None - Smoking History Smoking history: Former smoker Have you smoked in the past 12 months: No If you are a former smoker, when did you quit?: 1970 - Social History Usual Living Arrangement: Alone ADL: Independent History of Recent Travel: No Home Medications - Allergies Allergies/Adverse Reactions: Allergies Allergy/AdvReac Type Severity Reaction Status Date / Time No Known Allergies Allergy Verified 10/27/17 12:14 - Home Medications Home Medications: Ambulatory Orders Levothyroxine [Synthroid -] 50 mcg PO DAILY@0700 tablet 05/25/17 Multivit-Min/Iron/Folic/Lutein [Centrum Silver Women Tablet] 1 each PO DAILY Pantoprazole Sodium [Protonix -] 40 mg PO BID 09/22/17 Ferrous Sulfate [Iron] 325 mg PO DAILY 10/27/17 Family Disease History - Family Disease History Family Disease History: CA: Father (lung cancer), Mother (ovarian cancer), Brother (lung cancer), Other: Son, Daughter (lupus) Review of Systems - Review of Systems Constitutional: reports: Malaise, Night Sweats. denies: Chills, Fever Eyes: reports: No Symptoms HENT: reports: No Symptoms Neck: reports: No Symptoms Cardiovascular: reports: Shortness of Breath. denies: Chest Pain, Edema, Palpitations Respiratory: reports: Cough, SOB, SOB on Exertion. denies: Hemoptysis, Snoring , Wheezing Gastrointestinal: reports: No Symptoms Genitourinary: reports: No Symptoms Breasts: reports: No Symptoms Reported Musculoskeletal: reports: No Symptoms Integumentary: reports: No Symptoms Neurological: reports: No Symptoms Endocrine: reports: No Symptoms Hematology/Lymphatic: reports: No Symptoms Psychiatric: reports: No Symptoms Physical Exam Vital Sings: Vital Signs Temperature 97.8 F 10/30/17 06:00 Pulse Rate 76 10/30/17 06:00 Respiratory Rate 20 10/30/17 06:00 Blood Pressure 152/68 10/30/17 06:00 O2 Sat by Pulse Oximetry (%) 97 10/29/17 21:00 Constitutional: Yes: No Distress, Thin Eyes: Yes: Conjunctiva Clear, EOM Intact HENT: Yes: Atraumatic, Normocephalic Neck: Yes: Supple, Trachea Midline Cardiovascular: Yes: Regular Rate and Rhythm Respiratory: Yes: Cough, Diminished, Rhonchi. No: Accessory Muscle Use, On Nasal O2, Rales, Stridor, Tachypnea, Wheezes ...Inspection: Yes: WNL ...Clubbing: No Gastrointestinal: Yes: Normal Bowel Sounds, Soft, Other (IR Drain ) Musculoskeletal: Yes: WNL Extremities: Yes: WNL Edema: No Peripheral Pulses WNL: Yes Integumentary: Yes: WNL Neurological: Yes: WNL, Alert, Oriented ...Motor Strength: WNL Psychiatric: Yes: WNL, Alert, Oriented Labs: CBC, BMP 10/30/17 06:00 10/30/17 06:00 Imaging - Results Chest X-ray: Report Reviewed, Image Reviewed Problem List - Problems (1) Atelectasis Code(s): J98.11 - ATELECTASIS (2) Colon neoplasm Code(s): D49.0 - NEOPLASM OF UNSPECIFIED BEHAVIOR OF DIGESTIVE SYSTEM (3) Duodenal mass Code(s): K31.89 - OTHER DISEASES OF STOMACH AND DUODENUM (4) Fistula Code(s): L98.8 - OTH DISRD OF THE SKIN AND SUBCUTANEOUS TISSUE (5) Abdominal abscess Code(s): K65.1 - PERITONEAL ABSCESS (6) Barretts esophagus Code(s): K22.70 - SEXTON'S ESOPHAGUS WITHOUT DYSPLASIA (7) Cholelithiasis Code(s): K80.20 - CALCULUS OF GALLBLADDER W/O CHOLECYSTITIS W/O OBSTRUCTION (8) Chronic kidney disease Code(s): N18.9 - CHRONIC KIDNEY DISEASE, UNSPECIFIED Qualifiers: Chronic kidney disease stage: stage 2 (mild) Qualified Code(s): N18.2 - Chronic kidney disease, stage 2 (mild) (9) Esophageal varices Code(s): I85.00 - ESOPHAGEAL VARICES WITHOUT BLEEDING (10) 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 (11) GERD (gastroesophageal reflux disease) Code(s): K21.9 - GASTRO-ESOPHAGEAL REFLUX DISEASE WITHOUT ESOPHAGITIS Qualifiers: Esophagitis presence: with esophagitis Qualified Code(s): K21.0 - Gastro- esophageal reflux disease with esophagitis (12) History of colon cancer Code(s): Z85.038 - PERSONAL HISTORY OF MALIGNANT NEOPLASM OF LARGE INTESTINE (13) Hypoalbuminemia Code(s): E88.09 - OTH DISORDERS OF PLASMA-PROTEIN METABOLISM, NEC (14) Hypothyroidism Code(s): E03.9 - HYPOTHYROIDISM, UNSPECIFIED Qualifiers: Hypothyroidism type: unspecified Qualified Code(s): E03.9 - Hypothyroidism , unspecified (15) Iron deficiency anemia Code(s): D50.9 - IRON DEFICIENCY ANEMIA, UNSPECIFIED Qualifiers: Iron deficiency anemia type: unspecified iron deficiency Qualified Code(s) : D50.9 - Iron deficiency anemia, unspecified Assessment/Plan Despitye CXR findings, there is a paucity of symptoms. Cough is not significantly worse and not productive. Empiric Zosyn for now O2 as needed Incentive Spirometry Repeat CXR in AM Current management BD TX Monitor off systemic steroids Will follow Thank you. Dr Mckeon
--- NOTE | 2017-10-30 16:43 | PN ---
Progress Note (short form) - Note Progress Note: Pt seen and examined Is much more awake Last Vital Signs Temp Pulse Resp BP Pulse Ox 97.5 F L 69 20 128/64 97 10/30/17 14:57 10/30/17 14:57 10/30/17 14:57 10/30/17 14:57 10/29/17 21:00 CBC, BMP 10/30/17 06:00 10/30/17 06:00 Current Medications Generic Name Dose Route Start Last Admin Trade Name Freq PRN Reason Stop Dose Admin Acetaminophen 650 mg 10/27/17 21:42 10/28/17 06:03 Tylenol - PO 650 mg Q4H PRN Administration PAIN LEVEL 1 - 3 Acetaminophen 325 mg 10/27/17 22:00 10/30/17 10:53 Tylenol - PO Not Given Q4HPO [facility] Piperacillin Sod/Tazobactam 50 mls @ 100 mls/hr 10/28/17 10:45 10/30/17 10:52 Sod 3.375 gm/ Dextrose IVPB 100 mls/hr Q8H-IV [facility] Administration Potassium Chloride/Dextrose/Sod Cl 10 meq in 1,000 mls @ 75 mls/hr 10/30/17 09 :30 10/30/17 10:51 D5-1/2ns+10 Meq Kcl - IV 75 mls/hr ASDIR [facility] Administration Levothyroxine Sodium 50 mcg 10/28/17 07:00 10/30/17 06:14 Synthroid - PO 50 mcg DAILY@0700 [facility] Administration Multivitamins/Minerals 1 each 10/28/17 10:00 10/30/17 10:52 Theragran-M PO 1 each DAILY [facility] Administration Ondansetron HCl 8 mg 10/28/17 10:05 10/28/17 10:20 Zofran Injection IVPB 8 mg Q6H PRN Administration NAUSEA AND/OR VOMITING Oxycodone HCl 5 mg 10/27/17 22:00 10/30/17 10:53 Roxicodone - PO Not Given Q4HPO [facility] Pantoprazole Sodium 40 mg 10/27/17 22:00 10/30/17 10:52 Protonix - PO 40 mg BID [facility] Administration advanced CRC: Not a candidate for Rx. Fistula/Perforation/Biliary drain abx per ID Dispo: family discussing, likely will be discharged home,logistics needs to be worked out, daughter working on it
--- NOTE | 2017-10-30 17:55 | PN ---
Progress Note (short form) - Note Progress Note: no fevers alert NPO drain placed yesterday- large volume of bilious green fluid in JLP drain-less drainage today Vital Signs Period Temp Pulse Resp BP Sys/Benavides Pulse Ox Last 24 Hr 97.5 F-98.2 F 69-80 20-20 122-152/51-68 97-97 cor-rrr lungs decreased bs at bases abd flat, firm, nt no erythema- +drain with bilious fluid ext no edema CBC, BMP 10/30/17 06:00 10/30/17 06:00 Microbiology 10/27/17 20:45 Abdomen Gram Stain - Final 10/27/17 20:45 Abdomen Wound Culture - Final Streptococcus Viridans 10/27/17 13:04 Blood - Peripheral Venous Blood Culture - Preliminary NO GROWTH OBTAINED AFTER 72 HOURS, INCUBATION TO CONTINUE FOR 2 DAYS. 10/27/17 13:04 Blood - Peripheral Venous Blood Culture - Preliminary NO GROWTH OBTAINED AFTER 72 HOURS, INCUBATION TO CONTINUE FOR 2 DAYS. 10/28/17 14:30 Abscess Gram Stain - Final 10/28/17 14:30 Abscess Body Fluid Culture - Preliminary Lactose Fermenting Neg Bacilli Group D Strep Or Entero Coccus Pending Organism 10/28/17 12:45 Urine - Urine Clean Catch Urine Culture - Final a/p- perforation with fistula drain in place cultures pending colon cancer continue zosyn f/u cultures decisions about hospice being explored continue antibiotics for now d/w daughter at length Problem List - Problems (1) Abdominal abscess Code(s): K65.1 - PERITONEAL ABSCESS (2) Fistula Code(s): L98.8 - OTH DISRD OF THE SKIN AND SUBCUTANEOUS TISSUE (3) Colon neoplasm Code(s): D49.0 - NEOPLASM OF UNSPECIFIED BEHAVIOR OF DIGESTIVE SYSTEM
[2017-10-31] MEDS: ACETAMINOPHEN 325 MG TABLET (FP) PO SCH ×6 (02:00→22:26)
[2017-10-31] MEDS: oxyCODONE HCL 5 MG TABLET PO SCH ×6 (02:00→22:26)
[2017-10-31] MEDS ORDERED: PT OWN MED DRAWER 7, Y5N ONE ×3 (02:05→17:20)
[2017-10-31] MEDS: PIPERACILLIN/TAZOB 3.375 GM 3.375 GM in DEXTROSE 5%-WATER - 50 ML IVPB SCH ×3 (02:07→18:06)
[2017-10-31] MEDS ORDERED: PICC LINE 8 ML FLUSH PROTOCOL IVPUSH PRN (05:54)
--- NOTE | 2017-10-31 05:54 | PN ---
Progress Note, Physician Chief Complaint: in bed slept well feels well daughter and family at bedside they all expressed wish to go home with IVF IV ATB and eventually to transition to home hospice they understand she has limited life expectancy and pt and daughter want and signed DNR DNI, wish comfort care only I d/w GI and ID and CM about DC home planning, pt will have private nurse for IVs, to check her lungs, might needs home O2 eventually (now O2 sat/RA 97%) also to have home blood drawing; all scripts and orders put in and faxed to the labs and infusion company and d/w CM to have a PICC or tunnelled cath placed in - Current Medication List Current Medications: Active Medications Acetaminophen (Tylenol -) 650 mg PO Q4H PRN PRN Reason: PAIN LEVEL 1 - 3 Last Admin: 10/28/17 06:03 Dose: 650 mg Acetaminophen (Tylenol -) 325 mg PO Q4HPO [facility] Last Admin: 10/31/17 02:00 Dose: Not Given Piperacillin Sod/Tazobactam (Sod 3.375 gm/ Dextrose) 50 mls @ 100 mls/hr IVPB Q8H-IV [facility] Last Admin: 10/31/17 02:07 Dose: 100 mls/hr Potassium Chloride/Dextrose/Sod Cl (D5-1/2ns+10 Meq Kcl -) 10 meq in 1,000 mls @ 75 mls/hr IV ASDIR [facility] Last Admin: 10/30/17 10:51 Dose: 75 mls/hr Levothyroxine Sodium (Synthroid -) 50 mcg PO DAILY@0700 [facility] Last Admin: 10/30/17 06:14 Dose: 50 mcg Multivitamins/Minerals (Theragran-M) 1 each PO DAILY [facility] Last Admin: 10/30/17 10:52 Dose: 1 each Ondansetron HCl (Zofran Injection) 8 mg IVPB Q6H PRN PRN Reason: NAUSEA AND/OR VOMITING Last Admin: 10/28/17 10:20 Dose: 8 mg Oxycodone HCl (Roxicodone -) 5 mg PO Q4HPO [facility] Last Admin: 10/31/17 02:00 Dose: Not Given Pantoprazole Sodium (Protonix -) 40 mg PO BID [facility] Last Admin: 10/30/17 21:21 Dose: 40 mg - Objective Vital Signs: Vital Signs Temperature 97.7 F 10/31/17 05:24 Pulse Rate 76 10/31/17 05:24 Respiratory Rate 18 10/31/17 05:24 Blood Pressure 142/64 10/31/17 05:24 O2 Sat by Pulse Oximetry (%) 97 10/30/17 21:00 Constitutional: Yes: No Distress, Calm Eyes: Yes: Conjunctiva Clear HENT: Yes: Atraumatic Neck: Yes: Supple Cardiovascular: Yes: Regular Rate and Rhythm Respiratory: Yes: CTA Bilaterally Gastrointestinal: Yes: Soft. No: Distention, Tenderness Genitourinary: No: CVA Tenderness - Left, CVA Tenderness - Right Musculoskeletal: No: Joint Stiffness, Joint Swelling Extremities: No: Cold, Cool, Cyanosis Edema: No Integumentary: No: Rash, Venous Stasis Changes Neurological: Yes: WNL, Alert, Oriented ...Motor Strength: WNL Psychiatric: Yes: WNL, Alert, Oriented. No: Agitated Labs: CBC, BMP 10/30/17 06:00 10/30/17 06:00 INR, PTT INR 1.41 (0.82-1.09) H D 10/28/17 10:35 - ....Imaging Other: Report Reviewed Assessment/Plan 77-year-old female s/p R hemicolectomy for colon CA 6 months ago, s/p recent duodenal stent for obstruction sec to colon CA metastatic, admitted with vomiting and abdominal drainage through old laparoscopic site R abdominal abscess and biliary drainage sec to metastatic local invasion - s/p IR drainage anemia s/p transfusion IVF IV antibiotics anemia: transfused dry mouth: po ice chips palliative care eval; DNR DNI d/w pt and daughter; pt and family want home hospice but they would want to continue all IVs given in H - d/w CM tunnelled cath insertion scripts done and faxed; d/w CM d/w ID: few more days IV ATB d/w heme onc: no further intervention, no chemo, also would not rec sq heparin b /o risk of bleeding t time 50 min
[2017-10-31] MEDS: LEVOTHYROXINE NA 50 MCG TABLET (FP) PO SCH (06:15)
[2017-10-31] MEDS: D5-1/2NS+10 MEQ KCL - 10 MEQ/1,000 ML INFUS.BAG IV SCH ×2 (06:21→10:35)
[2017-10-31 08:06] LABS: BASO % 0.9 % (0-2.0); EOS % 1.4 % (0-4.5); HEMATOCRIT 30.2 % (32.4-45.2); LYMPH % 5.2 % (8-40); MCH 27.4 pg (25.7-33.7); MCHC 33.2 g/dl (32.0-36.0); MEAN CELL VOLUME 82.5 fl (80-96); MEAN PLT VOLUME 6.8 fl (7.5-11.1); MONO % 5.5 % (3.8-10.2); PLATELET COUNT 258 K/MM3 (134-434); RBC 3.66 M/mm3 (3.60-5.2); RDW 17.1 % (11.6-15.6); WHITE BLOOD COUNT 11.2 K/mm3 (4.0-10.0)
[2017-10-31 08:38] LABS: CHLORIDE 105 mmol/L (98-107); POTASSIUM 3.3 mmol/L (3.5-5.1); SODIUM 136 mmol/L (136-145)
[2017-10-31 08:50] LABS: ANION GAP 10 (8-16); BLOOD UREA NITROGEN 20 mg/dL (7-18); CALCIUM 7.5 mg/dL (8.5-10.1); CO2 21 mmol/L (21-32); CREATININE 1.5 mg/dL (0.55-1.02); GLUCOSE,RANDOM 91 mg/dL (74-106)
[2017-10-31] MEDS: PANTOPRAZOLE 40 MG TABLET (FP) PO SCH ×2 (10:35→21:16)
[2017-10-31] MEDS: MULTIVITAMINS THER W-MINERALS COMBO TABLET (FP) PO SCH (10:37)
--- NOTE | 2017-10-31 14:30 | PN ---
Progress Note (short form) - Note Progress Note: no fevers alert\no vomiting sipping water and ice pops drain placed yesterday- large volume of bilious green fluid in JLP drain-clear Vital Signs Period Temp Pulse Resp BP Sys/Benavides Pulse Ox Last 24 Hr 97.5 F-97.8 F 69-78 18-20 128-142/56-64 97 cor-rrr lungs decreased bs at bases- abd soft, nontender marcia drain with green bile ext no edema CBC, BMP 10/31/17 07:40 10/31/17 07:40 Microbiology 10/27/17 13:04 Blood - Peripheral Venous Blood Culture - Preliminary NO GROWTH OBTAINED AFTER 96 HOURS, INCUBATION TO CONTINUE FOR 1 DAYS. 10/27/17 13:04 Blood - Peripheral Venous Blood Culture - Preliminary NO GROWTH OBTAINED AFTER 96 HOURS, INCUBATION TO CONTINUE FOR 1 DAYS. 10/28/17 14:30 Abscess Gram Stain - Final 10/28/17 14:30 Abscess Body Fluid Culture - Preliminary Escherichia Coli Enterococcus Faecalis Alpha Hemolytic Streptococcus Yeast Like Organism 10/28/17 14:30 Abscess Anaerobic Culture - Preliminary No growth. 10/27/17 20:45 Abdomen Gram Stain - Final 10/27/17 20:45 Abdomen Wound Culture - Final Streptococcus Viridans 10/28/17 12:45 Urine - Urine Clean Catch Urine Culture - Final a/p- abscess perforation with fistula drain in place colon cancer continue zosyn day #3, she cannot take po- d/w daughter she would like her to continue antiibotics d/w Dr Segura, fluid clearing, will plan another 7 days iv zosyn suspect cxray findings are congestion but cannot r/o pneumonia- zosyn will treat this as well cultures as expected have enteric shabbir- she has a fistula as well decisions about hospice being explored DNR/DNI please call back if needed Problem List - Problems (1) Abdominal abscess Code(s): K65.1 - PERITONEAL ABSCESS (2) Fistula Code(s): L98.8 - OTH DISRD OF THE SKIN AND SUBCUTANEOUS TISSUE (3) Colon neoplasm Code(s): D49.0 - NEOPLASM OF UNSPECIFIED BEHAVIOR OF DIGESTIVE SYSTEM
--- NOTE | 2017-10-31 15:13 | PN ---
Progress Note (short form) - Note Progress Note: PULMONARY APPEARS STABLE FROM A RESPIRATORY STANDPOINT VSS/AFEBRILE WEAK/WANTS TO GO HOME ANICTERIC DIMINISHED BREATH SOUNDS BASES S1S2 BS+ DELFIN DRAIN IN PLACE WITH BILIOUS DRAINAGE NO EDEMA LABS/MEDS/NOTES/IMAGES/MICRO REVIEWED (1) Atelectasis Code(s): J98.11 - ATELECTASIS (2) Colon neoplasm Code(s): D49.0 - NEOPLASM OF UNSPECIFIED BEHAVIOR OF DIGESTIVE SYSTEM (3) Duodenal mass Code(s): K31.89 - OTHER DISEASES OF STOMACH AND DUODENUM (4) Fistula Code(s): L98.8 - OTH DISRD OF THE SKIN AND SUBCUTANEOUS TISSUE (5) Abdominal abscess Code(s): K65.1 - PERITONEAL ABSCESS (6) Barretts esophagus Code(s): K22.70 - SEXTON'S ESOPHAGUS WITHOUT DYSPLASIA (7) Cholelithiasis Code(s): K80.20 - CALCULUS OF GALLBLADDER W/O CHOLECYSTITIS W/O OBSTRUCTION (8) Chronic kidney disease Code(s): N18.9 - CHRONIC KIDNEY DISEASE, UNSPECIFIED Qualifiers: Chronic kidney disease stage: stage 2 (mild) Qualified Code(s): N18.2 - Chronic kidney disease, stage 2 (mild) (9) Esophageal varices Code(s): I85.00 - ESOPHAGEAL VARICES WITHOUT BLEEDING (10) 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 (11) GERD (gastroesophageal reflux disease) Code(s): K21.9 - GASTRO-ESOPHAGEAL REFLUX DISEASE WITHOUT ESOPHAGITIS Qualifiers: Esophagitis presence: with esophagitis Qualified Code(s): K21.0 - Gastro- esophageal reflux disease with esophagitis (12) History of colon cancer Code(s): Z85.038 - PERSONAL HISTORY OF MALIGNANT NEOPLASM OF LARGE INTESTINE (13) Hypoalbuminemia Code(s): E88.09 - OTH DISORDERS OF PLASMA-PROTEIN METABOLISM, NEC (14) Hypothyroidism Code(s): E03.9 - HYPOTHYROIDISM, UNSPECIFIED Qualifiers: Hypothyroidism type: unspecified Qualified Code(s): E03.9 - Hypothyroidism , unspecified (15) Iron deficiency anemia Code(s): D50.9 - IRON DEFICIENCY ANEMIA, UNSPECIFIED Qualifiers: Iron deficiency anemia type: unspecified iron deficiency Qualified Code(s) : D50.9 - Iron deficiency anemia, unspecified Assessment/Plan Cough is improved and not productive. Antibiotics O2 as needed Incentive Spirometry BD TX Monitor off systemic steroids Would try to fulfill patient's wish of being home for Elizabeth MIR MD
[2017-10-31] MEDS: POTASSIUM CHLORIDE 10 MEQ in SODIUM CHLORIDE 100 ML IVPB SCH ×3 (15:43→21:16)
--- NOTE | 2017-10-31 18:52 | PN ---
GI Progress Note Subjective: GI NOte: Remarkably stoic. Had PICC placed. Family at bedside. Minimal abdominal pain. Peritoneal fluid drainage down to 300cc today. Growing multiple organisms as expected, including fungus. Firm on her wish to spend her last Easter at home and to at home. Discussed situation with son and daughter as well. - Objective Vital Signs: Vital Signs Temperature 97.9 F 10/31/17 14:53 Pulse Rate 85 10/31/17 14:53 Respiratory Rate 20 10/31/17 14:53 Blood Pressure 153/77 10/31/17 14:53 O2 Sat by Pulse Oximetry (%) 97 10/31/17 09:00 Constitutional: Calm ...Palpate: Yes: Other (ruq drain functioning, no new fistulae) Labs: CBC, BMP 10/31/17 07:40 10/31/17 07:40 INR, PTT INR 1.41 (0.82-1.09) H D 10/28/17 10:35 Assessment/Plan Going home tomorrow for 10 dayus of antibiotics then hospice care [place] DNR Problem List - Problems (1) Colon neoplasm Code(s): D49.0 - NEOPLASM OF UNSPECIFIED BEHAVIOR OF DIGESTIVE SYSTEM (2) Abdominal abscess Code(s): K65.1 - PERITONEAL ABSCESS (3) Anemia Code(s): D64.9 - ANEMIA, UNSPECIFIED Qualifiers: Qualified Code(s): D64.9 - Anemia, unspecified (4) Duodenal mass Code(s): K31.89 - OTHER DISEASES OF STOMACH AND DUODENUM (5) Fistula Code(s): L98.8 - OTH DISRD OF THE SKIN AND SUBCUTANEOUS TISSUE (6) Barretts esophagus Code(s): K22.70 - SEXTON'S ESOPHAGUS WITHOUT DYSPLASIA (7) Cholelithiasis Code(s): K80.20 - CALCULUS OF GALLBLADDER W/O CHOLECYSTITIS W/O OBSTRUCTION (8) Cirrhosis Code(s): K74.60 - UNSPECIFIED CIRRHOSIS OF LIVER (9) Esophageal varices Code(s): I85.00 - ESOPHAGEAL VARICES WITHOUT BLEEDING
[2017-11-01] MEDS: PIPERACILLIN/TAZOB 3.375 GM 3.375 GM in DEXTROSE 5%-WATER - 50 ML IVPB SCH ×2 (01:16→10:31)
[2017-11-01] MEDS: oxyCODONE HCL 5 MG TABLET PO SCH ×4 (01:17→14:22)
[2017-11-01] MEDS: ACETAMINOPHEN 325 MG TABLET (FP) PO SCH ×4 (01:17→14:22)
[2017-11-01 06:33] VITALS: BP 137/67; PULSE 83; TEMP 97.8
[2017-11-01] MEDS: LEVOTHYROXINE NA 50 MCG TABLET (FP) PO SCH (06:48)
--- NOTE | 2017-11-01 07:27 | DS ---
Physical Examination Vital Signs: Vital Signs Temperature 97.8 F 11/01/17 06:32 Pulse Rate 83 11/01/17 06:32 Respiratory Rate 20 11/01/17 06:32 Blood Pressure 137/67 11/01/17 06:32 O2 Sat by Pulse Oximetry (%) 98 10/31/17 21:00 Findings/Remarks: in bed awake alert NAD VSS happy to go home for Easter daughter at bedside all scripts done; RAMY/DENTAL LABORATORY TECHNICIAN APPRENTICE checked d/w pt and daughter schedules and meds home labs on friday IV ATB x 10 days then hospice RTER if severe symptoms t time 40 min Constitutional: Yes: No Distress, Calm Eyes: Yes: Conjunctiva Clear HENT: Yes: Atraumatic Neck: Yes: Supple Cardiovascular: Yes: Regular Rate and Rhythm Respiratory: Yes: CTA Bilaterally Gastrointestinal: Yes: Soft, Other (drain working). No: Distention, Tenderness Renal/: No: CVA Tenderness - Left, CVA Tenderness - Right Musculoskeletal: No: Joint Stiffness, Joint Swelling Extremities: No: Cold, Cool, Cyanosis Edema: No Integumentary: No: Rash, Venous Stasis Changes Neurological: Yes: WNL, Alert, Oriented ...Motor Strength: WNL Psychiatric: Yes: WNL, Alert, Oriented. 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 Condition: Guarded - Instructions Diet, Activity, Other Instructions: home IVF and IV antibiotics as ordered home hospice DNR DNI comfort care RTER if severe symptoms Referrals: Sayda Segura [Primary Care Provider] - Disposition: VNS/HOME HEALTH CARE - Home Medications Comprehensive Discharge Medication List: Ambulatory Orders Levothyroxine [Synthroid -] 50 mcg PO DAILY@0700 tablet 05/25/17 Multivit-Min/Iron/Folic/Lutein [Centrum Silver Women Tablet] 1 each PO DAILY Pantoprazole Sodium [Protonix -] 40 mg PO BID 09/22/17 Ferrous Sulfate [Iron] 325 mg PO DAILY 10/27/17 Acetaminophen [Tylenol .Regular Strength -] 325 mg PO Q4HPO tablet 10/31/17 Dextrose 5%-0.45% Saline [D5-1/2Ns -] 75 ml IV ASDIR 30 Days #30 infus.bag 10/31 Picc Line Flush [Picc Line Flush -] 8 ml IVPUSH PRN PRN ml 10/31/17 Piperacillin/Tazob 3.375 gm [Zosyn -] 3.375 gm IVPB Q8H-IV 10 Days #30 vial oxyCODONE HCL [Roxicodone -] 5 mg PO Q6H PRN #100 tablet MDD 4 10/31/17
[2017-11-01] MEDS ORDERED: PT OWN MED DRAWER 7, Y5N ONE (09:48)
[2017-11-01] MEDS: MULTIVITAMINS THER W-MINERALS COMBO TABLET (FP) PO SCH (10:31)
[2017-11-01] MEDS: D5-1/2NS+10 MEQ KCL - 10 MEQ/1,000 ML INFUS.BAG IV SCH (10:32)
[2017-11-01] MEDS: PANTOPRAZOLE 40 MG TABLET (FP) PO SCH (10:32)
== END 2017-11-01 17:45 | disposition home health service (06) | DRG 374 ==
LOC: JER 11:33 → JERBED 17:23 → J7W 20:36
PROVIDERS: ADMIT Internal Medicine; ATTEND Internal Medicine
PROC: 30233N1 Transfusion of Nonautologous Red Blood Cells into Peripheral Vein, Percutaneous Approach (ICD-10-PCS; 2017-10-27)
PROC: 0D9W30Z Drainage of Peritoneum with Drainage Device, Percutaneous Approach (ICD-10-PCS; principal; 2017-10-28)
PROC: 02HV33Z Insertion of Infusion Device into Superior Vena Cava, Percutaneous Approach (ICD-10-PCS; 2017-10-31)
DX: D49.0 Neoplasm of unspecified behavior of digestive system (principal); K65.1 Peritoneal abscess; J98.11 Atelectasis; K31.6 Fistula of stomach and duodenum; D64.9 Anemia, unspecified; K31.89 Other diseases of stomach and duodenum; K22.70 Barrett's esophagus without dysplasia; K80.20 Calculus of gallbladder without cholecystitis without obstruction
CPT/HCPCS: 36415; 36430; 36569; 49406; 71045-TC-FY; 74177-TC; 77001-TC-FY; 80048; 80053; 80076; 81003; 82378; 82728; 83540; 83690; 85025; 85610; 86850; 86900; 86901; 86922; 87040; 87070; 87075; 87086; 87186; 87205; 93005; 93010; 94010; 99283-25; C1729; C1751; C1769; J7030; P9038; P9058

== ENCOUNTER 2017-11-07 19:57 | Inpatient (IN) | payer OTHER, BC ==
[2017-11-07] MEDS ORDERED: PANTOPRAZOLE SODIUM 40 MG VIAL IVPUSH ONE (21:33)
--- NOTE | 2017-11-07 21:33 | PDOC ---
History of Present Illness <Yoana Vogt - Last Filed: 11/08/17 02:01> - General History Source: Family Exam Limitations: No Limitations - History of Present Illness Initial Comments: 11/07/17 22:23 The patient is a 77-year-old female, with a past medical history of colon cancer , GERD, acute kidney failure, cirrhosis, who presents to the ED with rectal bleeding. The patient had a laparoscopic colectomy 6 months ago with complicated with postoperative infections, which prevented her from receiving chemotherapy or radiation. A duodenal stent was placed a month ago at [facility] for duodenal obstruction secondary to colon cancer mets. Daughter brought the patient in today because she noted the patient was bleeding from the rectum. She reports that the patient has been undergoing enteric feeding coupled with dextrose for the past week. Daughter denies that the patient is experiencing any fever, chills, nausea, or vomiting. Denies any shortness of breath or chest pain. Allergies: NKA PCP: Dr. Sayda Segura Commodity Lead: Dr. Padilla Oncologist: Dr. Luisito Reyes <Karon López - Last Filed: 11/08/17 02:10> - General Chief Complaint: Rectal Bleed Stated Complaint: Rectal Bleed Time Seen by Provider: 11/07/17 20:01 Past History - Past Medical History Anemia: Yes Cancer: Yes (COLON CA AND TUMOR) COPD: No GI Disorders: Yes (Gerd) Disorders: Yes (ACUTE KIDNEY INJURY) Liver Disease: Yes (cirrhosis) Thyroid Disease: Yes - Surgical History Abdominal Surgery: Yes (04/2017) - Suicide/Smoking/Psychosocial Hx Smoking History: Never smoked Have you smoked in the past 12 months: No If you are a former smoker, when did you quit?: 50 YEARS AGO Information on smoking cessation initiated: No 'Breaking Loose' booklet given: 09/23/17 Hx Alcohol Use: No Drug/Substance Use Hx: No Substance Use Type: None Hx Substance Use Treatment: No <Yoana Vogt - Last Filed: 11/08/17 02:01> <Karon López - Last Filed: 11/08/17 02:10> - Past Medical History Allergies/Adverse Reactions: Allergies Allergy/AdvReac Type Severity Reaction Status Date / Time No Known Allergies Allergy Verified 11/07/17 20:47 Home Medications: Ambulatory Orders Levothyroxine [Synthroid -] 50 mcg PO DAILY@0700 tablet 05/25/17 Multivit-Min/Iron/Folic/Lutein [Centrum Silver Women Tablet] 1 each PO DAILY Pantoprazole Sodium [Protonix -] 40 mg PO BID 09/22/17 Ferrous Sulfate [Iron] 325 mg PO DAILY 10/27/17 Acetaminophen [Tylenol .Regular Strength -] 325 mg PO Q4HPO tablet 10/31/17 Dextrose 5%-0.45% Saline [D5-1/2Ns -] 75 ml IV ASDIR 30 Days #30 infus.bag 10/31 Picc Line Flush [Picc Line Flush -] 8 ml IVPUSH PRN PRN ml 10/31/17 Piperacillin/Tazob 3.375 gm [Zosyn -] 3.375 gm IVPB Q8H-IV 10 Days #30 vial oxyCODONE HCL [Roxicodone -] 5 mg PO Q6H PRN #100 tablet MDD 4 10/31/17 Potassium Chloride Oral Soln [KCl Oral Solution] 20 meq PO BID 30 Days #900 cup 11/01/17 Review of Systems - Review of Systems Able to Perform ROS?: Yes Comments:: 11/07/17 22:23 CONSTITUTIONAL: Absent: fever, chills, diaphoresis, generalized weakness, malaise, loss of appetite HEENT: Absent: rhinorrhea, nasal congestion, throat pain, throat swelling, difficulty swallowing, mouth swelling, ear pain, eye pain, visual Changes CARDIOVASCULAR: Absent: chest pain, syncope, palpitations, irregular heart rate, lightheadedness , peripheral edema RESPIRATORY: Absent: cough, shortness of breath, dyspnea with exertion, orthopnea, wheezing, stridor, hemoptysis GASTROINTESTINAL: Absent: abdominal pain, abdominal distension, nausea, vomiting, diarrhea, constipation, melena, hematochezia GENITOURINARY: Present: (+)rectal bleeding Absent: dysuria, frequency, urgency, hesitancy, hematuria, flank pain, genital pain MUSCULOSKELETAL: Absent: myalgia, arthralgia, joint swelling SKIN: Absent: rash, itching, pallor HEMATOLOGIC/IMMUNOLOGIC: Absent: easy bleeding, easy bruising, lymphadenopathy, frequent infections ENDOCRINE: Absent: unexplained weight gain, unexplained weight loss, heat intolerance, cold intolerance NEUROLOGIC: Absent: headache, focal weakness or paresthesias, dizziness, unsteady gait, seizure, mental status changes, bladder or bowel incontinence PSYCHIATRIC: Absent: anxiety, depression, suicidal or homicidal ideation, hallucinations. <Karon López - Last Filed: 11/08/17 02:10> *Physical Exam - Vital Signs Last Vital Signs Temp Pulse Resp BP Pulse Ox 97.5 F L 83 18 98/55 100 11/07/17 20:46 11/07/17 20:46 11/07/17 20:46 11/07/17 20:46 11/07/17 20:46 <Yoana Vogt - Last Filed: 11/08/17 02:01> - Vital Signs Last Vital Signs Temp Pulse Resp BP Pulse Ox 97.5 F L 83 18 98/55 100 11/07/17 20:46 11/07/17 20:46 11/07/17 20:46 11/07/17 20:46 11/07/17 20:46 - Physical Exam Comments: 11/07/17 22:24 GENERAL: Awake and alert. No acute distress. HEENT: Normocephalic, atraumatic. PERRLA, EOMI. No conjunctival pallor. Sclera are non- icteric. Moist mucous membranes. Oropharynx is clear. NECK: Supple. Full ROM. No JVD. Carotid pulses 2+ and symmetric, without bruits. No thyromegaly. No lymphadenopathy. CARDIOVASCULAR: (+)Systolic murmur. No rubs, or gallops. Distal pulses are 2+ and symmetric. PULMONARY: No evidence of respiratory distress. Lungs clear to auscultation bilaterally. No wheezing, rales or rhonchi. ABDOMINAL: Soft. Non-tender. Non-distended. No rebound or guarding. No organomegaly. Normoactive bowel sounds. MUSCULOSKELETAL Normal range of motion at all joints. No bony deformities or tenderness. No CVA tenderness. EXTREMITIES: (+)Pitting edema up to thigh bilaterally. No cyanosis. No clubbing. No calf tenderness. SKIN: Warm and dry. Normal capillary refill. No rashes. No jaundice. NEUROLOGICAL: Alert, awake, appropriate. PSYCHIATRIC: Cooperative. Good eye contact. Appropriate mood and affect. <Karon López - Last Filed: 11/08/17 02:10> Heart Score/ECG Review - ECG Intrepretation Comment:: 11/08/17 02:08 EKG was reviewed by Dr. Vogt at 20:33. Impression: Normal sinus rhythm with sinus arrhythmia. Low voltage QRS, Inferior infarct, age undetermined. Cannot rule out Anterior infarct, age undetermined. <Karon López - Last Filed: 11/08/17 02:10> ED Treatment Course - LABORATORY CBC & Chemistry Diagram: 11/07/17 21:34 11/07/17 21:00 <Yoana Vogt - Last Filed: 11/08/17 02:01> - LABORATORY CBC & Chemistry Diagram: 11/07/17 21:34 11/07/17 21:00 - Medications Given in the ED: ED Medications Discontinued Medications Generic Name Dose Route Start Last Admin Trade Name Freq PRN Reason Stop Dose Admin Pantoprazole Sodium 80 mg 11/07/17 21:33 11/07/17 21:40 Protonix Iv IVPUSH 11/07/17 21:34 80 mg ONCE ONE Administration <Karon López - Last Filed: 11/08/17 02:10> Medical Decision Making - Medical Decision Making 11/07/17 22:48 Pt has a Hb 5.1 and platelt count of 15 - which is new. Pt has worsening renal failure - family states that she is not producing urine, and that she has been NPO, only given IV hydration for the past 7 days. 11/08/17 02:01 i SPOKE TO dR. Sayda Segura, WHO AGREES THAT PT SHOULD GO TO THE ICU OVERNIGHT, AND SHE IS REQUESTING THAT WE CONSULT DR. REYES (WITH WHOM I SPOKE AND HE RECOMMENDS THAT WE GET A BASELINE FIBRINOGEN LEVEL AND PTT) HE IS REQUESTING FFP 'S 2 BAGS AND 10MG VIT. K <Yoana Vogt - Last Filed: 11/08/17 02:01> - Medical Decision Making 11/07/17 22:38 Dr. Sayda Segura was paged and notified via phone service. <Karon López - Last Filed: 11/08/17 02:10> *DC/Admit/Observation/Transfer - Discharge Dispostion Admit: Yes <Yoana Vogt - Last Filed: 11/08/17 02:01> - Attestations Scribe Attestion: 11/07/17 22:26 Documentation prepared by Karon López, acting as biomedical engineering professor for Yoana Vogt MD. <Karon López - Last Filed: 11/08/17 02:10> Diagnosis at time of Disposition: Anasarca, History of colon cancer, Duodenal mass, Thrombocytopenia Anemia Qualifiers: Iron deficiency anemia type: chronic blood loss Qualified Code(s): D64.9 - Anemia, unspecified GI bleeding Qualifiers: GI bleed type/associated pathology: melena Qualified Code(s): K92.1 - Melena - Discharge Dispostion Condition at time of disposition: Guarded - Referrals Referrals: Navjot Segura MD [Primary Care Provider] - - Patient Instructions - Post Discharge Activity
[2017-11-07 21:36] VITALS: BMI 28.3
[2017-11-07 22:24] LABS: HEMATOCRIT 15.9 % (32.4-45.2); MCH 28.5 pg (25.7-33.7); MCHC 32.1 g/dl (32.0-36.0); MEAN CELL VOLUME 88.6 fl (80-96); MEAN PLT VOLUME 11.2 fl (7.5-11.1); RDW 18.7 % (11.6-15.6); WHITE BLOOD COUNT 15.6 K/mm3 (4.0-10.0)
[2017-11-07 22:31] LABS: INR 2.38 (0.82-1.09); PROTHROMBIN TIME (PATIENT) 26.9 SEC (9.98-11.88)
[2017-11-07 22:33] LABS: HEMOGLOBIN 5.1 GM/dL (10.7-15.3); PLATELET COUNT 15 K/MM3 (134-434)
[2017-11-07 22:41] LABS: ALBUMIN 1.2 g/dl (3.4-5.0); ANION GAP 13 (8-16); BILIRUBIN,TOTAL 0.6 mg/dL (0.2-1.0); BLOOD UREA NITROGEN 33 mg/dL (7-18); CHLORIDE 107 mmol/L (98-107); CO2 14 mmol/L (21-32); CREATININE 2.6 mg/dL (0.55-1.02); GLUCOSE,RANDOM 102 mg/dL (74-106); POTASSIUM 3.5 mmol/L (3.5-5.1); SGOT/AST 35 U/L (15-37); SGPT/ALT 13 U/L (12-78); SODIUM 134 mmol/L (136-145); TOT PROT 4.5 g/dl (6.4-8.2)
[2017-11-07 22:44] LABS: ALK PHOS 798 U/L (45-117)
[2017-11-07 23:08] LABS: ANISOCYTOSIS 2+
[2017-11-07 23:09] LABS: MACROCYTOSIS 1+; PLATELET ESTIMATE MOD DECREASED
--- NOTE | 2017-11-07 23:25 | PN ---
Teaching Attending Note Name of Resident: Virgen Gaspar ATTENDING PHYSICIAN STATEMENT I saw and evaluated the patient. I reviewed the resident's note and discussed the case with the resident. I agree with the resident's findings and plan as documented. SUBJECTIVE: OBJECTIVE: ASSESSMENT AND PLAN: this is a 77 y/o female with stage 4 colorectal cancer, on home hospice care presented to the ER with fresh blood per rectum that started this afternoon, according to the family she has not had this in a while. patient stated that she has been NPO for 10-12 days because of the tumor obstruction she had a PICC line placed at [facility] where she is getting the IV fluid hydration patient was noted to have an acute drop in Hb and platelets, as well as SHARITA will admit the patient to hospital for failure to thrive, acute anemia 2/2 GI loss, and SHARITA start fluid hydration transfuse 3 units of pRBC transfuse 2 units of platelets GI consultation pain management for the patient keep NPO start fluid hydration for the SHARITA patient DNR/DNI according to the daughter and her
[2017-11-07 23:40] LABS: N-TERMINAL BNP 4294.03 pg/ml (5-450)
[2017-11-07] MEDS ORDERED: SODIUM CHLORIDE 1,000 ML IV SCH (23:45)
[2017-11-07 23:52] LABS: ACTIVATED PTT 39.9 SECONDS (26.9-34.4)
[2017-11-08] MEDS ORDERED: oxyCODONE HCL 5 MG TABLET PO PRN (00:19)
--- NOTE | 2017-11-08 00:31 | HP ---
CHIEF COMPLAINT: rectal bleeding PCP: Dr Segura HISTORY OF PRESENT ILLNESS: This 77 year old female presents to the hospital complaining of rectal bleeding that started this evening. History was taken from the patient and her daughter that is present at bedside. She has a history of right hemicolectomy performed by by Dr Torres on 04/24/17 due to adenocarcinoma. Postop course was complicated by abscesses requiring IR placed drainage catheters. She has never been well enough to allow for chemotherapy. She was recently discharged home on Zosyn, d51 /2 NS, NPO for 10-12 days. The plan was to continue hospice. The episode of BRBPR this evening prompted her to come to the hospital. She didn't have any more bloody bowel movements in the hospital. She was found to be severely anemic Hg 5.1, PLT 15 with associated SHARITA. She was given blood and platelets transfusion and admitted to ICU. 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, constipation, esophageal Varices, GERD (Whitfield's esophagus) Cirrhosis, cholelithiasis, anemia, hyperthyroidism treated with RAIU, now hypothyroidism PAST SURGICAL HISTORY: Colectomy, Colonoscopy, C section x 2, oopherectomy, Social History: Smoking:former smoker, quit 50 years ago Alcohol:no Drugs:no Family History: Father:lung cancer, Mother:ovarian cancer Allergies No Known Allergies Allergy (Verified 11/07/17 20:47) HOME MEDICATIONS: Home Medications Medication Instructions Recorded Levothyroxine [Synthroid -] 50 mcg PO DAILY@0700 tablet 05/25/17 Multivit-Min/Iron/Folic/Lutein 1 each PO DAILY 09/22/17 [Centrum Silver Women Tablet] Pantoprazole Sodium [Protonix -] 40 mg PO BID 09/22/17 Ferrous Sulfate [Iron] 325 mg PO DAILY 10/27/17 Acetaminophen [Tylenol .Regular 325 mg PO Q4HPO tablet 10/31/17 Strength -] Dextrose 5%-0.45% Saline [D5-1/2Ns 75 ml IV ASDIR 30 Days #30 10/31/17 -] infus.bag Picc Line Flush [Picc Line Flush -] 8 ml IVPUSH PRN PRN ml 10/31/17 Piperacillin/Tazob 3.375 gm [Zosyn 3.375 gm IVPB Q8H-IV 10 Days #30 10/31/17 -] vial oxyCODONE HCL [Roxicodone -] 5 mg PO Q6H PRN #100 tablet MDD 4 10/31/17 Potassium Chloride Oral Soln [KCl 20 meq PO BID 30 Days #900 cup 11/01/17 Oral Solution] REVIEW OF SYSTEMS CONSTITUTIONAL: generalized weakness Absent: fever, chills, diaphoresis, , malaise, loss of appetite, weight change HEENT: Absent: rhinorrhea, nasal congestion, throat pain, throat swelling, difficulty swallowing CARDIOVASCULAR: Absent: chest pain, syncope, palpitations, irregular heart rate, lightheadedness , peripheral edema RESPIRATORY: Absent: cough, shortness of breath, dyspnea with exertion, orthopnea, wheezing, stridor, hemoptysis GASTROINTESTINAL:hematochezia Absent: abdominal pain, abdominal distension, nausea, vomiting, diarrhea, constipation GENITOURINARY: Absent: dysuria, frequency, urgency, hesitancy, hematuria, flank pain, genital pain MUSCULOSKELETAL: Absent: myalgia, arthralgia, joint swelling, back pain, neck pain SKIN: Absent: rash, itching, pallor ENDOCRINE: Absent: unexplained weight gain, unexplained weight loss, NEUROLOGIC: Absent: headache, focal weakness or paresthesias PSYCHIATRIC: Absent: anxiety, depression PHYSICAL EXAMINATION Vital Signs - 24 hr 11/07/17 11/07/17 20:43 20:46 Temperature 97.1 F L 97.5 F L Pulse Rate 85 83 Respiratory 18 18 Rate Blood Pressure 98/55 98/55 O2 Sat by Pulse 100 Oximetry (%) GENERAL: Awake, alert, and fully oriented, in no acute distress. HEAD: Normal with no signs of trauma. EYES: Pupils equal, round and reactive to light, extraocular movements intact, sclera anicteric, conjunctiva clear. No lid lag. EARS, NOSE, THROAT: Ears normal, nares patent, oropharynx clear without exudates. Moist mucous membranes. NECK: Normal range of motion, supple without lymphadenopathy, JVD, or masses. LUNGS: Breath sounds equal, clear to auscultation bilaterally. No wheezes, and no crackles. No accessory muscle use. HEART: Regular rate and rhythm, normal S1 and S2 without murmur, rub or gallop. ABDOMEN: Nontender, distended, hypomoactive bowel sounds, no guarding, no rebound, drain on right side, draining black fluid. MUSCULOSKELETAL: Normal range of motion at all joints. No CVA tenderness. UPPER EXTREMITIES: 2+ pulses, warm, well-perfused. No cyanosis. No clubbing. No peripheral edema. LOWER EXTREMITIES: 2+ pulses, warm, well-perfused. No calf tenderness. No peripheral edema. NEUROLOGICAL: Normal speech, no facial asymmetry. Gait not observed. PSYCHIATRIC: Cooperative. Good eye contact. Appropriate mood and affect. SKIN: Warm, dry, normal turgor, no rashes or lesions noted, normal capillary refill. Laboratory Results - last 24 hr 11/07/17 11/07/17 11/07/17 21:00 21:34 21:34 WBC 15.6 H D RBC 1.80 L D Hgb 5.1 L* D Hct 15.9 L D MCV 88.6 D MCH 28.5 MCHC 32.1 RDW 18.7 H Plt Count 15 L* D MPV 11.2 H D Neutrophils % No Result Required. Neutrophils % (Manual) 84.0 H Band Neutrophils % 6.0 Lymphocytes % No Result Required. Lymphocytes % (Manual) 5.0 L D Monocytes % (Manual) 5 Hypochromia 3+ Platelet Estimate Mod decreased Anisocytosis 2+ Microcytosis 1+ Macrocytosis 1+ PT with INR 26.90 H INR 2.38 H D PTT (Actin FS) Fibrinogen D-Dimer Sodium 134 L Potassium 3.5 Chloride 107 Carbon Dioxide 14 L Anion Gap 13 BUN 33 H Creatinine 2.6 H Creat Clearance w eGFR 17.85 Random Glucose 102 Calcium 7.0 L Total Bilirubin 0.6 AST 35 ALT 13 Alkaline Phosphatase 798 H Creatine Kinase 35 Troponin I < 0.02 B-Natriuretic Peptide 4294.03 H Total Protein 4.5 L Albumin 1.2 L Blood Type Antibody Screen Crossmatch 11/07/17 11/07/17 11/07/17 21:34 21:35 21:35 WBC RBC Hgb Hct MCV MCH MCHC RDW Plt Count MPV Neutrophils % Neutrophils % (Manual) Band Neutrophils % Lymphocytes % Lymphocytes % (Manual) Monocytes % (Manual) Hypochromia Platelet Estimate Anisocytosis Microcytosis Macrocytosis PT with INR INR PTT (Actin FS) 39.9 H D Fibrinogen 328.0 D-Dimer 896 H Sodium Potassium Chloride Carbon Dioxide Anion Gap BUN Creatinine Creat Clearance w eGFR Random Glucose Calcium Total Bilirubin AST ALT Alkaline Phosphatase Creatine Kinase Troponin I B-Natriuretic Peptide Total Protein Albumin Blood Type O POSITIVE Antibody Screen Negative Crossmatch See Detail ASSESSMENT/PLAN: This 77 year old female presents to the hospital complaining of rectal bleeding this evening. History was taken from the patient and her daughter that is present at bedside. She has a history of right hemicolectomy. The pt presented with BRBPR. Rectal bleeding: -hemodynamically stable, monitor vitals q4h -NPO -GI consulted- Dr Padilla -ordered 3 u of PRBC, 2 u plt -monitor CBC -protonix given in ED -hold NS for now Thrombocytopenia: PLT count 15, ordered 2 u of platelets -monitor for bleeding Leukocytosis: -the pt was on abx, will monitor for signs of infection SHARITA: Cr 2.6, baseline 1.5 -will avoid nephrotoxic substances LE edema: -possibly related to malignancy, elevated BNP -will hold fluids H/o of colon ca, s/p resection: -GI consulted-Richard Padilla -palliative care f/u -will continue abx given at home GERD: cont home meds when stable Hypothyroidim: -continue Synthroid DVT PPXx; -no haparin -scds F/E/N no/no changes/NPO Disposition: ICU monitoring, poor prognosis. her daughter confirmed in ED that the pt is DNR/ DNI and documents were signed on previous admission. Problem List - Problem (1) Duodenal mass Code(s): K31.89 - OTHER DISEASES OF STOMACH AND DUODENUM (2) GIB (gastrointestinal bleeding) Code(s): K92.2 - GASTROINTESTINAL HEMORRHAGE, UNSPECIFIED Qualifiers: GI bleed type/associated pathology: melena Qualified Code(s): K92.1 - Melena (3) History of colon cancer Code(s): Z85.038 - PERSONAL HISTORY OF MALIGNANT NEOPLASM OF LARGE INTESTINE (4) Thrombocytopenia Code(s): D69.6 - THROMBOCYTOPENIA, UNSPECIFIED (5) SHARITA (acute kidney injury) Code(s): N17.9 - ACUTE KIDNEY FAILURE, UNSPECIFIED (6) Acute blood loss anemia Code(s): D62 - ACUTE POSTHEMORRHAGIC ANEMIA Visit type - Emergency Visit Emergency Visit: Yes ED Registration Date: 11/08/17 Care time: The patient presented to the Emergency Department on the above date and was hospitalized for further evaluation of their emergent condition. - New Patient This patient is new to me today: Yes Date on this admission: 11/08/17 - Critical Care Critical Care patient: No Hospitalist Screening - Colonoscopy Questionnaire Colonoscopy Questionnaire: Colonoscopy Questionnaire - Patient: 50 - 75 years old and never had a screening colonoscopy: No History of colon or rectal polyps, or CA: No History of IBD, Crohn's disease or UC: No History of abdominal radiation therapy as a child: No - Relative: 1 with colon or rectal CA, or polyps at age 60 or younger: No Colon or rectal CA diagnosed at age 45 or younger: No Multiple relatives with colon or rectal CA: No - Outcome: Screening Result: Negative Screen
[2017-11-08] MEDS ORDERED: PHYTONADIONE 10 MG/1 ML AMP IVPB ONE (02:04)
[2017-11-08 02:10] LABS: URINE APPEARANCE CLEAR; URINE BILIRUBIN NEGATIVE (<2.0 mg/dL); URINE BLOOD NEGATIVE (NEGATIVE); URINE COLOR YELLOW; URINE GLUCOSE (UA) NEGATIVE (NEGATIVE); URINE KETONE NEGATIVE (NEGATIVE); URINE LEUK ESTERASE NEGATIVE (NEGATIVE); URINE NITRITE NEGATIVE (NEGATIVE); URINE PROTEIN NEGATIVE (NEGATIVE); URINE UROBILINOGEN NEGATIVE mg/dL (0.2-1.0)
--- NOTE | 2017-11-08 03:23 | CONSULT ---
Consult Consult Specialty:: Pulmonary/Critical Care Medicine Reason for Consultation:: GI Bleed - History of Present Illness Chief Complaint: Bright red blood per rectum History of Present Illness: Mrs. León is a 77yo female with stage 4 colorectal cancer, previous R hemicolectomy, cirrhosis, COPD, Whitfield's esophagus, esophageal varices, hypothyroidism, recently admitted where underwent IR placed biliary drain, also had PICC placed, discharged home about 1wk ago on IVFs, remaining NPO, with wish to remain at home and have hospice when the time came for that. Now presenting to ED s/p episode of BRBPR. In ED, found to have labs notable for Hgb 5.1, WBC 15, Plts 15, INR 2.3, Na 134 , SCr 2.6 (prior admit 1.5), Alk Phos 798, BNP 4298, UA neg. GI consulted by ED. Admitted to ICU for acute anemia in setting of GI bleed (m/l lower) and SHARITA. Arrived to ICU alert and conversant with initial vitals BP 98/49. Hr 86, and RR 16. Reports dizziness at time of BRBPR rectum around 7pm yesterday. Admits h/o hemorrhoids. Denies any LOC. Denies fever/chills, PLUMMER, vomitting. Does admit some episodes of vomiting after discharge home that subsided with zofran, and described as dark brown. No emesis in last 4 days as per patient. States she was told to do ice pops or ice chips only, but also admits no appetite. Denies CP. +ESCOBAR since yesterday. Denies abd pain. Denies dysuria or retention, but does admit very infrequently voiding last 2-3 days. 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 SAMPSON), Cholelithiasis, Other (ASCITES POST SURGERY, HYPOALBUMINEMIA) Renal/: Yes: Renal Failure (resolved) Heme/Onc: Yes: Anemia Infectious Disease: Yes: Other (INTRAABDOMINAL ABSCESS POST SURGERY) Endocrine: Yes: Hyperthyroidism (treated with RAIU and now hypothyroid, recent benign biopsy) Dermatology: Yes: Cellulitis - Past Surgical History Past Surgical History: Yes: Colectomy, Colonoscopy, (C section x 2), Oopherectomy, Upper Endoscopy - Alcohol/Substance Use Hx Alcohol Use: No History of Substance Use: reports: None - Smoking History Smoking history: Former smoker Have you smoked in the past 12 months: No If you are a former smoker, when did you quit?: 50 YEARS AGO - Social History Usual Living Arrangement: Alone ADL: Family Assistance (assisted by daughter) Place of : [facility] History of Recent Travel: No Home Medications - Allergies Allergies/Adverse Reactions: Allergies Allergy/AdvReac Type Severity Reaction Status Date / Time No Known Allergies Allergy Verified 11/07/17 20:47 - Home Medications Home Medications: Ambulatory Orders Levothyroxine [Synthroid -] 50 mcg PO DAILY@0700 tablet 05/25/17 Multivit-Min/Iron/Folic/Lutein [Centrum Silver Women Tablet] 1 each PO DAILY Pantoprazole Sodium [Protonix -] 40 mg PO BID 09/22/17 Ferrous Sulfate [Iron] 325 mg PO DAILY 10/27/17 Acetaminophen [Tylenol .Regular Strength -] 325 mg PO Q4HPO tablet 10/31/17 Dextrose 5%-0.45% Saline [D5-1/2Ns -] 75 ml IV ASDIR 30 Days #30 infus.bag 10/31 Picc Line Flush [Picc Line Flush -] 8 ml IVPUSH PRN PRN ml 10/31/17 Piperacillin/Tazob 3.375 gm [Zosyn -] 3.375 gm IVPB Q8H-IV 10 Days #30 vial oxyCODONE HCL [Roxicodone -] 5 mg PO Q6H PRN #100 tablet MDD 4 10/31/17 Potassium Chloride Oral Soln [KCl Oral Solution] 20 meq PO BID 30 Days #900 cup 11/01/17 Family Disease History - Family Disease History Family Disease History: CA: Father (lung cancer), Mother (ovarian cancer), Brother (lung cancer), Other: Son, Daughter (lupus) Review of Systems - Review of Systems Constitutional: reports: Lethargy, Loss of Appetite, Weakness HENT: reports: Other (dry mouth) Cardiovascular: reports: No Symptoms Respiratory: reports: SOB on Exertion Gastrointestinal: reports: Rectal Bleeding Genitourinary: reports: Other (reports minimal UOP) Neurological: reports: Dizziness Hematology/Lymphatic: reports: Easily Bruised Physical Exam Vital Signs: Vital Signs Temperature 97.5 F L 11/07/17 20:46 Pulse Rate 83 11/07/17 20:46 Respiratory Rate 18 11/07/17 20:46 Blood Pressure 98/55 11/07/17 20:46 O2 Sat by Pulse Oximetry (%) 100 11/07/17 20:46 Constitutional: Yes: Calm, Cachectic, Pallor Eyes: Yes: Conjunctiva Clear, PERRL HENT: Yes: WNL Neck: Yes: Supple Cardiovascular: Yes: Regular Rate and Rhythm Respiratory: Yes: CTA Bilaterally Gastrointestinal: Yes: Normal Bowel Sounds, Soft, Rectal Bleeding (in ED but none at this time of admit to ICU) Renal/: Yes: Garcia Present Edema: Yes Edema: LLE: 4+, RLE: 4+ Peripheral Pulses WNL: Yes Integumentary: Yes: Bruising (scattered areas of ecchymosis to b/l UEs) Wound/Incision: Yes: Dressing Dry and Intact Neurological: Yes: Alert, Oriented ...Motor Strength: WNL Psychiatric: Yes: WNL Labs: CBC, BMP 11/07/17 21:34 11/07/17 21:00 Hepatic Panel Total Bilirubin 0.6 mg/dL (0.2-1.0) 11/07/17 21:00 AST 35 U/L (15-37) 11/07/17 21:00 ALT 13 U/L (12-78) 11/07/17 21:00 Alkaline Phosphatase 798 U/L (45-117) H 11/07/17 21:00 Albumin 1.2 g/dl (3.4-5.0) L 11/07/17 21:00 Troponin, BNP 11/07/17 21:00 Troponin I < 0.02 B-Natriuretic Peptide 4294.03 H Problem List - Problems (1) Anasarca Code(s): R60.1 - GENERALIZED EDEMA (2) Anemia Code(s): D64.9 - ANEMIA, UNSPECIFIED Qualifiers: Iron deficiency anemia type: chronic blood loss (3) GIB (gastrointestinal bleeding) Code(s): K92.2 - GASTROINTESTINAL HEMORRHAGE, UNSPECIFIED Qualifiers: GI bleed type/associated pathology: melena Qualified Code(s): K92.1 - Melena (4) History of colon cancer Code(s): Z85.038 - PERSONAL HISTORY OF MALIGNANT NEOPLASM OF LARGE INTESTINE (5) Thrombocytopenia Code(s): D69.6 - THROMBOCYTOPENIA, UNSPECIFIED (6) SHARITA (acute kidney injury) Code(s): N17.9 - ACUTE KIDNEY FAILURE, UNSPECIFIED Assessment/Plan 77yo female with stage 4 colorectal cancer, s/p R hemicolectomy, cirrhosis, COPD , Whitfield's esophagus, esophageal varices, hypothyroidism, recent admission where s/p IR placed biliary drain, s/p PICC, DNR/DNI, now being admitted to ICU for acute anemia in setting of GIB and SHARITA. -Transfuse for Hgb>7 and plts>50 -If overt e/o bleeding, transfuse while awaiting repeat labs -Maintain active T&S -Serial CBC & coags -Vitamin K & FFP for coagulopathy -Access = double lumen LUE PICC -GI consulted by ED -Would be cautious with any further IVF resuscitation given concerning respiratory status (+dyspnea, BNP 4294, 4+ edema) -Supplemental O2 as needed for O2sat>90% -NPO -Consider empiric abx though leukocytosis can be in setting of GI Bleed (does have prior micro h/o wound w Ecoli, strep viridans, enterococcus & urine w group B strep, ecoli, enterococcus) -f/u pending urine culture -Send blood cultures -Strict I/Os, garcia, trend SCr -Pain mgmt as needed -DVT Ppx: venodynes, hold Hep SQ given bleeding -GI ppx: PPI (indication: malignancy, renal failure) -Reviewed GOC w/ patient: DNR/DNI, amenable to receiving blood products but does not want aggressive measures, daughter is her HCP and patient states daughter is in agreement with her -DNR/DNI Critical Care Time: 45 minutes
--- NOTE | 2017-11-08 10:52 | EKG ---
Test Reason : Blood Pressure : / mmHG Vent. Rate : 085 BPM Atrial Rate : 085 BPM P-R Int : 140 ms QRS Dur : 074 ms QT Int : 396 ms P-R-T Axes : -03 -12 -59 degrees QTc Int : 471 ms NORMAL SINUS RHYTHM WITH SINUS ARRHYTHMIA LOW VOLTAGE QRS INFERIOR INFARCT , AGE UNDETERMINED CANNOT RULE OUT ANTERIOR INFARCT (CITED ON OR BEFORE 17-MAR-2017) ABNORMAL ECG WHEN COMPARED WITH ECG OF 27-OCT-2017 13:34, NONSPECIFIC T WAVE ABNORMALITY NOW EVIDENT IN INFERIOR LEADS NONSPECIFIC T WAVE ABNORMALITY HAS REPLACED INVERTED T WAVES IN ANTERIOR LEADS Confirmed by ANDREINA FIGUEROA, CONRADO ([id number]) on 11/08/2017 10:51:39 AM Referred By: Confirmed By:CONRADO HDZ MD
[2017-11-08 11:53] LABS: HEMATOCRIT 20.4 % (32.4-45.2); MCH 29.5 pg (25.7-33.7); MCHC 34.2 g/dl (32.0-36.0); MEAN CELL VOLUME 86.1 fl (80-96); MEAN PLT VOLUME 9.4 fl (7.5-11.1); PLATELET COUNT 61 K/MM3 (134-434); RBC 2.37 M/mm3 (3.60-5.2); RDW 15.1 % (11.6-15.6); WHITE BLOOD COUNT 13.8 K/mm3 (4.0-10.0)
[2017-11-08] MEDS ORDERED: OCTREOTIDE ACETATE 50 MCG/1 ML - 1 ML VIAL IVPUSH ONE (12:08)
--- NOTE | 2017-11-08 12:21 | CON.GI ---
Consult Consult Specialty:: Dr. Becerra covering for Dr. Padilla Referred by:: Sr. Sayda Segura Reason for Consultation:: Anemia / GI bleed - History of Present Illness Chief Complaint: Rectal Bleed History of Present Illness: 77F with advanced colon cancer involving her duodenum. Currently admitted for dark rectal bleeding/ She was noted to be coagulopathic, with hgb of 5 and plt count of 15k. She was transfused FFP, Platelets and 2 U PRBC. She was recently admitted the end of October for a draining wound and a CT scan revealed a large periduodenal abscess containing contrast dye and a transtion zone with dilated stomach and esophagus. She vomited 4 times today. She underwent percutaneous peritoneal drain placement and has been on home hospice. Prior to that she had a duodenal stent placed by Dr. Hudson Sherman at [facility] on 10/06/17. EGDs done by Dr. 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 Esophageal varices were also seen in the setting of Whitfield's esophagus and an retained endoclip. 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 Her postop course was complicated by abscesses requiring IR placed drainage catheters. She has never been well enough to allow for chemotherapy. She was a patient of Dr Willard until he relocated his practice and started to be followed by Dr. Padilla 08/21. She currently denies any abdominal pain. 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 SAMPSON), Cholelithiasis, Other (ASCITES POST SURGERY, HYPOALBUMINEMIA) Renal/: Yes: Renal Failure (resolved) Infectious Disease: Yes: Other (INTRAABDOMINAL ABSCESS POST SURGERY) Endocrine: Yes: Hyperthyroidism (treated with RAIU and now hypothyroid, recent benign biopsy) Dermatology: Yes: Cellulitis - Past Surgical History Past Surgical History: Yes: Colectomy, Colonoscopy, (C section x 2), Oopherectomy, Upper Endoscopy - Alcohol/Substance Use Hx Alcohol Use: No History of Substance Use: reports: None - Smoking History Smoking history: Former smoker Have you smoked in the past 12 months: No If you are a former smoker, when did you quit?: 50 YEARS AGO - Social History Usual Living Arrangement: Alone ADL: Family Assistance (assisted by daughter) History of Recent Travel: No Home Medications - Allergies Allergies/Adverse Reactions: Allergies Allergy/AdvReac Type Severity Reaction Status Date / Time No Known Allergies Allergy Verified 11/07/17 20:47 - Home Medications Home Medications: Ambulatory Orders Levothyroxine [Synthroid -] 50 mcg PO DAILY@0700 tablet 05/25/17 Multivit-Min/Iron/Folic/Lutein [Centrum Silver Women Tablet] 1 each PO DAILY Pantoprazole Sodium [Protonix -] 40 mg PO BID 09/22/17 Ferrous Sulfate [Iron] 325 mg PO DAILY 10/27/17 Acetaminophen [Tylenol .Regular Strength -] 325 mg PO Q4HPO tablet 10/31/17 Dextrose 5%-0.45% Saline [D5-1/2Ns -] 75 ml IV ASDIR 30 Days #30 infus.bag 10/31 Picc Line Flush [Picc Line Flush -] 8 ml IVPUSH PRN PRN ml 10/31/17 Piperacillin/Tazob 3.375 gm [Zosyn -] 3.375 gm IVPB Q8H-IV 10 Days #30 vial oxyCODONE HCL [Roxicodone -] 5 mg PO Q6H PRN #100 tablet MDD 4 10/31/17 Potassium Chloride Oral Soln [KCl Oral Solution] 20 meq PO BID 30 Days #900 cup 11/01/17 Family Disease History - Family Disease History Family Disease History: CA: Father (lung cancer), Mother (ovarian cancer), Brother (lung cancer), Other: Son, Daughter (lupus) Review of Systems - Review of Systems Constitutional: denies: Fever Cardiovascular: denies: Chest Pain Gastrointestinal: reports: Rectal Bleeding. denies: Abdominal Pain, Nausea, Vomiting Physical Exam-GI Vital Signs: Vital Signs Temperature 97.2 F L 11/08/17 06:00 Pulse Rate 88 11/08/17 08:00 Respiratory Rate 14 11/08/17 08:00 Blood Pressure 118/50 11/08/17 08:00 O2 Sat by Pulse Oximetry (%) 100 11/08/17 09:50 Constitutional: Yes: Calm Eyes: Yes: Sclera Icterus Cardiovascular: Yes: Regular Rate and Rhythm Respiratory: Yes: Diminished (at bases b/l) Gastrointestinal Inspection: Yes: Distention (fullness) ...Auscultate: Yes: Normoactive Bowel Sounds ...Palpate: No: Tenderness ...Percussion: No: Tympanitic Edema: Yes Edema: LLE: 2+, RLE: 2+ Neurological: Yes: Alert, Oriented Labs: INR 2.38 (0.82-1.09) H D 11/07/17 21:34 Fibrinogen 328.0 mg/dL (238-498) 11/07/17 21:35 Laboratory Tests 11/07/17 11/07/17 21:00 21:34 WBC 15.6 H D Hgb 5.1 L* D Plt Count 15 L* D BUN 33 H Creatinine 2.6 H Total Bilirubin 0.6 AST 35 ALT 13 Alkaline Phosphatase 798 H Problem List - Problems (1) GIB (gastrointestinal bleeding) Assessment/Plan: Suspect source of bleeding to be from advanced colon cancer that has involved her small bowel and ? biliary tract. Her severe thrombocytopenia and worsening coaglopathy compounding her bleeding as well Would advise supportive measures. Given the whole clinical picture, pursuing aggressive measures such as endoscopy / angiography would likely be potemntially more harmful that good at this point - Started octreotide - Support measures. Correct severe thrombocytopenia, coagulopathy. PRBC's. Consider heme eval - Palliative care. Ms. León was on home hospice at home Code(s): K92.2 - GASTROINTESTINAL HEMORRHAGE, UNSPECIFIED Qualifiers: GI bleed type/associated pathology: melena Qualified Code(s): K92.1 - Melena
[2017-11-08 12:46] LABS: ANION GAP 12 (8-16); BLOOD UREA NITROGEN 32 mg/dL (7-18); CALCIUM 7.3 mg/dL (8.5-10.1); CHLORIDE 110 mmol/L (98-107); CO2 16 mmol/L (21-32); CREATININE 2.4 mg/dL (0.55-1.02); GLUCOSE,RANDOM 81 mg/dL (74-106); POTASSIUM 3.3 mmol/L (3.5-5.1); SODIUM 138 mmol/L (136-145)
--- NOTE | 2017-11-08 15:06 | PN ---
Progress Note (short form) - Note Progress Note: Patient well-lnown to Dr. Gomez, with metastatic colon cancer recently sent home on hospice, returns with profuse rectal bleeding, with anemia, thrombocytopenia, and coagulopathy. Admitted to ICU, and feeling well after transfusion (red cells, platelets and FFP). Has no complaints at this time. Seen by GI - supportive measures as above recommended. Octreotride. Meds reviewed. Current Medications Generic Name Dose Route Start Last Admin Trade Name Freq PRN Reason Stop Dose Admin Sodium Chloride 1,000 mls @ 100 mls/hr 11/07/17 23:45 11/08/17 03:59 Normal Saline - IV Not Given ASDIR KARL Octreotide Acetate 1,200 mcg/ 500 mls @ 20.83 mls/hr 11/08/17 12:15 Dextrose IVPB Q24H KARL 50 MCG/HR Levothyroxine Sodium 50 mcg 11/09/17 07:00 Synthroid - PO DAILY@0700 KARL Oxycodone HCl 5 mg 11/08/17 00:19 Roxicodone - PO Q6H PRN PAIN LEVEL 7 - 10 On exam: Last Vital Signs Temp Pulse Resp BP Pulse Ox 97.3 F L 87 14 122/46 100 11/08/17 13:00 11/08/17 15:00 11/08/17 15:00 11/08/17 15:00 11/08/17 09:50 General: Looks well, supine in bed. Extremities: Pallor, no icterus. Chest: breathing comfortably, clear to auscultation Abdomen: Non-distended Neuro: Alert, oriented, non-focal. Skin: No rash CBC, BMP 11/08/17 10:25 11/08/17 11:50 Assessment. Metastatic colon cancer, history detailed elsewhere, recently placed on home hospice, returns with copious GI bleeding. Unclear what has accounted for the acute drop in her platelets. Does not appear to be septic. Good response following platelet transfusion. Coagulopathy has been slowly progressive - likely attributable to liver disease , poor nutrition. Empiric dose Vitamin K given. Ongoing palliative measures as above. Hopefully bleeding will vanessa with correction of thrombocytopenia/coagulopathy. Can consider initiation of an antifibrinolytic agent. If bleeding persists then alternate plan will be required - certainly ongoing use of blood products in this context would not be appropriate.
[2017-11-08] MEDS: OCTREOTIDE ACETATE 1,200 MCG in DEXTROSE 5%-WATER - 488 ML IVPB SCH (15:45)
[2017-11-08 21:49] LABS: HEMATOCRIT 29.7 % (32.4-45.2); HEMOGLOBIN 10.1 GM/dL (10.7-15.3); MCH 29.9 pg (25.7-33.7); MCHC 34.1 g/dl (32.0-36.0); MEAN CELL VOLUME 87.7 fl (80-96); MEAN PLT VOLUME 9.4 fl (7.5-11.1); PLATELET COUNT 65 K/MM3 (134-434); RBC 3.38 M/mm3 (3.60-5.2); RDW 15.8 % (11.6-15.6); WHITE BLOOD COUNT 16.6 K/mm3 (4.0-10.0)
[2017-11-09 06:11] LABS: HEMATOCRIT 30.1 % (32.4-45.2); HEMOGLOBIN 10.3 GM/dL (10.7-15.3); MCH 29.9 pg (25.7-33.7); MCHC 34.3 g/dl (32.0-36.0); MEAN CELL VOLUME 87.2 fl (80-96); MEAN PLT VOLUME 9.7 fl (7.5-11.1); PLATELET COUNT 73 K/MM3 (134-434); RBC 3.45 M/mm3 (3.60-5.2); RDW 15.7 % (11.6-15.6); WHITE BLOOD COUNT 15.3 K/mm3 (4.0-10.0)
[2017-11-09] MEDS: LEVOTHYROXINE NA 50 MCG TABLET (FP) PO SCH (06:16)
[2017-11-09 06:38] LABS: MAGNESIUM 2.2 mg/dL (1.8-2.4); PHOSPHOROUS 4.8 mg/dL (2.5-4.9)
--- NOTE | 2017-11-09 07:30 | PN ---
Progress Note (short form) - Note Progress Note: PULM/CCM Progress note Pt seen and examined in ICU 24Hr: -responded well to plt, ffp and prbc transfusion -hemodynamically stable -hgb 10 x 2 Vital Signs Temp 98.1 F 11/09/17 06:00 Pulse 82 11/09/17 06:00 Resp 19 11/09/17 06:00 BP 140/52 11/09/17 06:00 Pulse Ox 100 11/08/17 20:00 Intake & Output 11/08/17 11/08/17 11/09/17 11:59 23:59 11:59 Intake Total 1250 800 100 Output Total 680 702 200 Balance 570 98 -100 Weight 64.002 kg 67.495 kg Intake: IV 100 lac 100 Oral 100 Packed Cells 350 700 Fresh Frozen Plasma 600 Platelets 300 Output: Drainage 30 2 0 Right 30 2 0 Urine 650 700 200 Garcia 650 700 200 Other: Voiding Method Indwelling Catheter Indwelling Catheter Height 5 ft 4 in Body Mass Index (BMI) 28.3 Weight Measurement Method [facility] Active Medications Sodium Chloride (Normal Saline -) 1,000 mls @ 100 mls/hr IV ASDIR [facility] Last Admin: 11/08/17 03:59 Dose: Not Given Octreotide Acetate 1,200 mcg/ (Dextrose) 500 mls @ 20.83 mls/hr IVPB Q24H [facility] PRN Reason: 50 MCG/HR Last Admin: 11/08/17 15:45 Dose: 20.83 mls/hr Levothyroxine Sodium (Synthroid -) 50 mcg PO DAILY@0700 [facility] Last Admin: 11/09/17 06:16 Dose: 50 mcg Oxycodone HCl (Roxicodone -) 5 mg PO Q6H PRN PRN Reason: PAIN LEVEL 7 - 10 Last Admin: 11/09/17 07:06 Dose: 5 mg CBCD WBC 15.3 K/mm3 (4.0-10.0) H 11/09/17 05:50 RBC 3.45 M/mm3 (3.60-5.2) L 11/09/17 05:50 Hgb 10.3 GM/dL (10.7-15.3) L 11/09/17 05:50 Hct 30.1 % (32.4-45.2) L 11/09/17 05:50 MCV 87.2 fl (80-96) 11/09/17 05:50 MCHC 34.3 g/dl (32.0-36.0) 11/09/17 05:50 RDW 15.7 % (11.6-15.6) H 11/09/17 05:50 Plt Count 73 K/MM3 (134-434) L 11/09/17 05:50 MPV 9.7 fl (7.5-11.1) 11/09/17 05:50 CMP Sodium 138 mmol/L (136-145) 11/08/17 11:50 Potassium 3.3 mmol/L (3.5-5.1) L 11/08/17 11:50 Chloride 110 mmol/L (98-107) H 11/08/17 11:50 Carbon Dioxide 16 mmol/L (21-32) L 11/08/17 11:50 Anion Gap 12 (8-16) 11/08/17 11:50 BUN 32 mg/dL (7-18) H 11/08/17 11:50 Creatinine 2.4 mg/dL (0.55-1.02) H 11/08/17 11:50 Creat Clearance w eGFR 17.85 (>60) 11/07/17 21:00 Calcium 7.3 mg/dL (8.5-10.1) L 11/08/17 11:50 Total Bilirubin 0.6 mg/dL (0.2-1.0) 11/07/17 21:00 AST 35 U/L (15-37) 11/07/17 21:00 ALT 13 U/L (12-78) 11/07/17 21:00 Alkaline Phosphatase 798 U/L (45-117) H 11/07/17 21:00 Total Protein 4.5 g/dl (6.4-8.2) L 11/07/17 21:00 Albumin 1.2 g/dl (3.4-5.0) L 11/07/17 21:00 Assessment/Plan 77yo female with stage 4 colorectal cancer, s/p R hemicolectomy, cirrhosis, COPD , Whitfield's esophagus, esophageal varices, hypothyroidism, recent admission where s/p IR placed biliary drain, s/p PICC, DNR/DNI, now being admitted to ICU for acute anemia in setting of GIB and SHARITA. -daily CBC, normal transfusion thresholds, plt>50 if bleeding. -Maintain active T&S -GI following -octreotide gtt as per GI -Would be cautious with any further IVF resuscitation given concerning respiratory status (+dyspnea, BNP 4294, 4+ edema) -Supplemental O2 as needed for O2sat>90% -comfort feeds -f/u cxl -Strict I/Os, garcia, trend SCr -Pain mgmt as needed -DVT Ppx: venodynes, hold Hep SQ given bleeding -Reviewed GOC w/ patient: DNR/DNI, amenable to receiving blood products but does not want aggressive measures, daughter is her HCP and patient states daughter is in agreement with her -DNR/DNI -OK for floor. Critical Care Time:35 minutes Vonnie ACNP [id number]
[2017-11-09] MEDS ORDERED: oxyCODONE HCL 5 MG TABLET PO PRN (09:25)
--- NOTE | 2017-11-09 11:02 | PN ---
Progress Note, Physician Chief Complaint: pt admitted by hospitalist service; d/w H today, will take over pt's care meds chart consults reviewed pt in ICU, rectal bleed; anemic; s/p blood transfusion PRBC and PLT; ARF on IVF also on IV antibiotics d/w pt and corazon at bedside; d/w ICU team pt is axox3 comfortable no pain no distress - Current Medication List Current Medications: Active Medications Octreotide Acetate 1,200 mcg/ (Dextrose) 500 mls @ 20.83 mls/hr IVPB Q24H KARL PRN Reason: 50 MCG/HR Last Admin: 11/08/17 15:45 Dose: 20.83 mls/hr Levothyroxine Sodium (Synthroid -) 50 mcg PO DAILY@0700 [facility] Last Admin: 11/09/17 06:16 Dose: 50 mcg Oxycodone HCl (Roxicodone -) 7.5 mg PO Q6H PRN PRN Reason: PAIN LEVEL 7 - 10 Last Admin: 11/09/17 10:06 Dose: 7.5 mg - Objective Vital Signs: Vital Signs Temperature 97.8 F 11/09/17 10:00 Pulse Rate 90 11/09/17 10:00 Respiratory Rate 18 11/09/17 10:00 Blood Pressure 146/99 11/09/17 10:00 O2 Sat by Pulse Oximetry (%) 100 11/08/17 20:00 Constitutional: Yes: No Distress, Calm Eyes: Yes: Conjunctiva Clear HENT: Yes: Atraumatic Neck: Yes: Supple Cardiovascular: Yes: Regular Rate and Rhythm Respiratory: Yes: Diminished Gastrointestinal: Yes: Soft, Other (drain tube). No: Distention, Tenderness Genitourinary: Yes: Braga Present. No: Hematuria Musculoskeletal: No: Joint Stiffness, Joint Swelling Extremities: No: Cold, Cool Edema: Yes Integumentary: No: Rash, Venous Stasis Changes Neurological: Yes: WNL, Alert, Oriented ...Motor Strength: WNL Psychiatric: Yes: WNL, Alert, Oriented. No: Agitated, Suicidal Ideation Labs: CBC, BMP 11/09/17 05:50 11/08/17 11:50 INR, PTT INR 2.38 (0.82-1.09) H D 11/07/17 21:34 Fibrinogen 328.0 mg/dL (238-498) 11/07/17 21:35 - ....Imaging Other: Report Reviewed Assessment/Plan 77 YOF advanced colon CA with local mets and invasion, erosion into duodenum and biliary tree, admitted with rectal bleed and anemia, low PLT, ARF s/p PRBC and PLT IVF IV antibiotics f/u labs CX heme onc GI evals prognosis poor DNR DNId/w pt and duaghter and ICU staff t time 40 min
[2017-11-09] MEDS: OCTREOTIDE ACETATE 1,200 MCG in DEXTROSE 5%-WATER - 488 ML IVPB SCH (13:33)
--- NOTE | 2017-11-09 14:28 | PN ---
Progress Note (short form) - Note Progress Note: Scant dark rectal bleeding overnight, none today. received 4 U PRBC in total as well as Vit K, platelets and FFP. Hgb 10.1 4/7 at 9pm, 10.3 at 6am this monring. Ms. León resting comfortably H/H stable and by description of rectal output It sounds as though bleeding has significantly subsided Continuing octritode for now Ms. León's daughter asked what the next step is at this point. I advised she discuss things with Dr. Segura re: continuied goals oif care / ? hospice. If hospice and comfort measures are what is desired, can stop octreotide. Problem List - Problems (1) GIB (gastrointestinal bleeding) Code(s): K92.2 - GASTROINTESTINAL HEMORRHAGE, UNSPECIFIED Qualifiers: GI bleed type/associated pathology: melena Qualified Code(s): K92.1 - Melena
--- NOTE | 2017-11-09 14:34 | PN ---
Progress Note (short form) - Note Progress Note: No new complaints. Patient sleeping. As per reports, bleeding significantly less over past 24 hours. . Meds reviewed. Current Medications Generic Name Dose Route Start Last Admin Trade Name [place] PRN Reason Stop Dose Admin Octreotide Acetate 1,200 mcg/ 500 mls @ 20.83 mls/hr 11/08/17 12:15 11/09/17 13:33 Dextrose IVPB 20.83 mls/hr Q24H KARL Administration 50 MCG/HR Levothyroxine Sodium 50 mcg 11/09/17 07:00 11/09/17 06:16 Synthroid - PO 50 mcg DAILY@0700 KARL Administration Oxycodone HCl 7.5 mg 11/09/17 09:25 11/09/17 10:06 Roxicodone - PO 7.5 mg Q6H PRN Administration PAIN LEVEL 7 - 10 On exam: Last Vital Signs Temp Pulse Resp BP Pulse Ox 98 F 77 16 115/54 100 11/09/17 13:33 11/09/17 13:33 11/09/17 13:33 11/09/17 13:33 11/09/17 10:00 General: Looks well, supine in bed. Chest: breathing comfortably Abdomen: Non-distended Neuro: non-focal. Skin: No rash CBC, BMP 11/09/17 05:50 11/08/17 11:50 Assessment. Metastatic colon cancer, history detailed elsewhere, recently placed on home hospice, returns with copious GI bleeding. Unclear what has accounted for the acute drop in her platelets. Does not appear to be septic. Good response following platelet transfusion, and platelets spontaneously improved from yesterday to today. Coagulopathy has been slowly progressive - likely attributable to liver disease , poor nutrition. Empiric dose Vitamin K given. Ongoing palliative measures as above. Bleeding appears to have abated with addressing of her thrombocytopenia/ coagulopathy. Can consider initiation of an antifibrinolytic agent if bleeding resumes. If bleeding persists then alternate plan will be required - certainly ongoing use of blood products in this context would not be appropriate.
[2017-11-09 20:40] LABS: BASO % 0.2 % (0-2.0); EOS % 0.4 % (0-4.5); HEMATOCRIT 33.5 % (32.4-45.2); HEMOGLOBIN 11.4 GM/dL (10.7-15.3); LYMPH % 3.5 % (8-40); MCH 29.8 pg (25.7-33.7); MEAN CELL VOLUME 87.7 fl (80-96); MEAN PLT VOLUME 9.2 fl (7.5-11.1); MONO % 5.7 % (3.8-10.2); NEUT % 90.2 % (42.8-82.8); PLATELET COUNT 113 K/MM3 (134-434); RBC 3.82 M/mm3 (3.60-5.2); RDW 15.7 % (11.6-15.6); WHITE BLOOD COUNT 23.3 K/mm3 (4.0-10.0)
[2017-11-10] MEDS ORDERED: AMIODARONE HCL 150 MG/3 ML VIAL ONE (00:44)
[2017-11-10 02:03] LABS: HEMATOCRIT 34.3 % (32.4-45.2); HEMOGLOBIN 11.6 GM/dL (10.7-15.3); MCH 29.8 pg (25.7-33.7); MCHC 33.8 g/dl (32.0-36.0); MEAN PLT VOLUME 9.1 fl (7.5-11.1); PLATELET COUNT 142 K/MM3 (134-434); RDW 15.8 % (11.6-15.6); WHITE BLOOD COUNT 29.5 K/mm3 (4.0-10.0)
[2017-11-10] MEDS ORDERED: AMIODARONE HCL INJECTION 150 MG in DEXTROSE 5%-WATER - 97 ML IVPB ONE (02:31)
[2017-11-10] MEDS ORDERED: SODIUM CHLORIDE 0.9% 500 ML INFUS.BAG IV ONE (02:32)
[2017-11-10] MEDS ORDERED: PIPERACILLIN/TAZOB 4.5 GM/100 ML PREMIX BAG IVPB ONE (02:38)
[2017-11-10] MEDS ORDERED: AMIODARONE HCL INJECTION 450 MG in DEXTROSE 5%-WATER - 241 ML IVPB SCH (02:45)
[2017-11-10] MEDS ORDERED: PIPERACILLIN/TAZOB 2.25 GM 2.25 GM in DEXTROSE 5%-WATER - 50 ML IVPB ONE (03:00)
[2017-11-10] MEDS ORDERED: PIPERACILLIN/TAZOBACTAM 2.25 GM VIAL IVPB ONE (03:04)
[2017-11-10] MEDS ORDERED: DEXTROSE 5%-WATER - 50 ML IVPB ONE (03:05)
[2017-11-10 03:36] LABS: URINE APPEARANCE SLCLOUDY; URINE BILIRUBIN NEGATIVE (<2.0 mg/dL); URINE BLOOD 1+ (NEGATIVE); URINE COLOR YELLOW; URINE GLUCOSE (UA) NEGATIVE (NEGATIVE); URINE KETONE NEGATIVE (NEGATIVE); URINE NITRITE NEGATIVE (NEGATIVE); URINE UROBILINOGEN NEGATIVE mg/dL (0.2-1.0)
[2017-11-10 03:40] LABS: URINE LEUK ESTERASE 1+ (NEGATIVE); URINE PROTEIN 1+ (NEGATIVE)
[2017-11-10 03:41] LABS: EPI CELLS RARE /HPF (FEW); URINE HYALINE CAST 1 /lpf; URINE MUCUS RARE; YEAST RARE
[2017-11-10 04:17] LABS: ANISOCYTOSIS 2+; MACROCYTOSIS 1+; PLATELET ESTIMATE NORMAL
[2017-11-10 06:27] LABS: ANION GAP 11 (8-16); BLOOD UREA NITROGEN 32 mg/dL (7-18); CHLORIDE 111 mmol/L (98-107); CO2 15 mmol/L (21-32); CREATININE 2.1 mg/dL (0.55-1.02); GLUCOSE,RANDOM 141 mg/dL (74-106); POTASSIUM 3.1 mmol/L (3.5-5.1); SODIUM 137 mmol/L (136-145)
[2017-11-10] MEDS: LEVOTHYROXINE NA 50 MCG TABLET (FP) PO SCH (06:28)
--- NOTE | 2017-11-10 06:55 | PN ---
Progress Note, Physician Chief Complaint: in bed awake alert NAD no pain, consults d/w pt and daughter, current treatment d/w them, pt said she wants to go home to in her bed will arrange for home hospice - Current Medication List Current Medications: Active Medications Octreotide Acetate 1,200 mcg/ (Dextrose) 500 mls @ 20.83 mls/hr IVPB Q24H KARL PRN Reason: 50 MCG/HR Last Admin: 11/09/17 13:33 Dose: 20.83 mls/hr Amiodarone HCl 450 mg/ (Dextrose) 250 mls @ 33.33 mls/hr IVPB TITR KARL; 1 MG/ MIN PRN Reason: Protocol Last Admin: 11/10/17 03:10 Dose: 1 mg/min, 33.33 mls/hr Levothyroxine Sodium (Synthroid -) 50 mcg PO DAILY@0700 KARL Last Admin: 11/10/17 06:28 Dose: 50 mcg Oxycodone HCl (Roxicodone -) 7.5 mg PO Q6H PRN PRN Reason: PAIN LEVEL 7 - 10 Last Admin: 11/09/17 10:06 Dose: 7.5 mg - Objective Vital Signs: Vital Signs Temperature 97.9 F 11/10/17 06:00 Pulse Rate 76 11/10/17 06:54 Respiratory Rate 11 L 11/10/17 06:54 Blood Pressure 108/57 11/10/17 06:54 O2 Sat by Pulse Oximetry (%) 100 11/09/17 21:00 Constitutional: Yes: No Distress, Calm Eyes: Yes: Conjunctiva Clear HENT: Yes: Atraumatic Neck: Yes: Supple Cardiovascular: Yes: Regular Rate and Rhythm Respiratory: Yes: Diminished Gastrointestinal: Yes: Soft, Other (drain tube) Genitourinary: No: CVA Tenderness - Left, CVA Tenderness - Right Musculoskeletal: No: Joint Stiffness, Joint Swelling Extremities: No: Cold, Cool Edema: Yes (U/LE bilat ) Integumentary: No: Rash, Venous Stasis Changes Neurological: Yes: WNL, Alert, Oriented ...Motor Strength: WNL Psychiatric: Yes: WNL, Alert, Oriented. No: Agitated, Suicidal Ideation Labs: CBC, BMP 11/10/17 01:50 11/10/17 05:45 INR, PTT INR 2.38 (0.82-1.09) H D 11/07/17 21:34 Fibrinogen 328.0 mg/dL (238-498) 11/07/17 21:35 - ....Imaging Other: Report Reviewed Assessment/Plan 77 YOF advanced colon CA with local mets and invasion, erosion into duodenum and biliary tree, admitted with rectal bleed and anemia, low PLT, ARF s/p PRBC and PLT IVF IV antibiotics f/u labs CX heme onc GI f/u; eval for home hospice prognosis poor DNR DNId/w pt and daughter and ICU staff t time 35 min
[2017-11-10] MEDS ORDERED: POTASSIUM CHLORIDE TABS 20 MEQ TABLET.ER (FP) PO ONE ×2 (08:31→13:31)
[2017-11-10] MEDS ORDERED: POTASSIUM CHLORIDE 30 MEQ in SODIUM CHLORIDE 285 ML IVPB ONE (09:30)
--- NOTE | 2017-11-10 09:38 | PN ---
Progress Note (short form) - Note Progress Note: GI NOte: Dr. Becerra's coverage is appreciated. I spoke with Marah's daughter as she is deeply asleep after an exhausting night. The daughter tells me that her mother wants to at home and does not want to go to [facility]. She would like to arrange hospice care via [place]. Bloody BMs have slowed down. Will decrease Octreotide and wean off as DNR remains in effect.
[2017-11-10] MEDS ORDERED: POTASSIUM CHLORIDE ORAL LIQUID 20 MEQ/15 ML PO ONE (09:43)
[2017-11-10 09:54] LABS: MAGNESIUM 1.9 mg/dL (1.8-2.4)
--- NOTE | 2017-11-10 09:54 | PN ---
Physical Exam: SUBJECTIVE: Patient seen and examined Overnight, pt became tachycardic to 160s, was placed on amiodarone gtt. This am , pt has no complaints and denies lightheadedness, headache, chest pain, SOB, abdominal pain, n/v, dysuria. She had an episode of melena this am. OBJECTIVE: Vital Signs Period Temp Pulse Resp BP Sys/Benavides Pulse Ox Last 24 Hr 97.6 F-98.5 F 75-167 10-20 84-146/47-99 100-100 GENERAL: elderly female, lying in bed, in NAD HEENT: NC, AT LUNGS: CTAB, no rales or rhonchi HEART: Regular rate and rhythm, S1, S2 without murmurs ABDOMEN: soft, NT, ND EXTREMITIES: 2+ LE edema NEUROLOGICAL: Cranial nerves II through XII grossly intact. Normal speech Laboratory Results - last 24 hr 11/09/17 11/10/17 11/10/17 20:00 01:50 02:30 WBC 23.3 H D 29.5 H RBC 3.82 3.90 Hgb 11.4 D 11.6 Hct 33.5 34.3 MCV 87.7 88.0 MCH 29.8 29.8 MCHC 34.0 33.8 RDW 15.7 H 15.8 H Plt Count 113 L D 142 D MPV 9.2 9.1 Neutrophils % 90.2 H Sales Lead Generator Neutrophils % (Manual) 78.9 Band Neutrophils % 10.0 Lymphocytes % 3.5 L D [employer] Generator Lymphocytes % (Manual) 4.5 L Monocytes % 5.7 Sales Lead Generator Monocytes % (Manual) 1 L Eosinophils % 0.4 Sales Lead Generator Eosinophils % (Manual) 2.2 Basophils % 0.2 Sales Lead Generator Basophils % (Manual) 0.0 Myelocytes % (Man) 0 Promyelocytes % (Man) 0 Blast Cells % (Manual) 0 Nucleated RBC % 2 H Metamyelocytes 0 Hypochromia 0 Platelet Estimate Normal Polychromasia 0 Poikilocytosis 0 Basophilic Stippling 1+ Anisocytosis 2+ Microcytosis 1+ Macrocytosis 1+ Sodium Potassium Chloride Carbon Dioxide Anion Gap BUN Creatinine Random Glucose Calcium Urine Color Yellow Urine Appearance Slcloudy Urine pH 5.0 Ur Specific [place] 1.019 Urine Protein 1+ H Urine Glucose (UA) Negative Urine Ketones Negative Urine Blood 1+ H Urine Nitrite Negative Urine Bilirubin Negative Urine Urobilinogen Negative Ur Leukocyte Esterase 1+ H Urine WBC (Auto) 27 Urine RBC (Auto) 1 Ur Epithelial Cells Rare Hyaline Casts 1 Urine Mucus Rare Urine Yeast Rare 11/10/17 05:45 WBC RBC Hgb Hct MCV MCH MCHC RDW Plt Count MPV Neutrophils % Neutrophils % (Manual) Band Neutrophils % Lymphocytes % Lymphocytes % (Manual) Monocytes % Monocytes % (Manual) Eosinophils % Eosinophils % (Manual) Basophils % Basophils % (Manual) Myelocytes % (Man) Promyelocytes % (Man) Blast Cells % (Manual) Nucleated RBC % Metamyelocytes Hypochromia Platelet Estimate Polychromasia Poikilocytosis Basophilic Stippling Anisocytosis Microcytosis Macrocytosis Sodium 137 Potassium 3.1 L Chloride 111 H Carbon Dioxide 15 L Anion Gap 11 BUN 32 H Creatinine 2.1 H Random Glucose 141 H Calcium 7.0 L Urine Color Urine Appearance Urine pH Ur Specific [place] Urine Protein Urine Glucose (UA) Urine Ketones Urine Blood Urine Nitrite Urine Bilirubin Urine Urobilinogen Ur Leukocyte Esterase Urine WBC (Auto) Urine RBC (Auto) Ur Epithelial Cells Hyaline Casts Urine Mucus Urine Yeast Active Medications Generic Name Dose Route Start Last Admin Trade Name Freq PRN Reason Stop Dose Admin Amiodarone HCl 450 mg/ 250 mls @ 33.33 mls/hr 11/10/17 02:45 11/10/17 03:10 Dextrose IVPB 1 mg/min TITR KARL 33.33 mls/hr Protocol Administration 1 MG/MIN Potassium Chloride 30 meq/ 300 mls @ 100 mls/hr 11/10/17 09:30 Sodium Chloride IVPB 11/10/17 12:29 ONCE ONE Octreotide Acetate 1,200 mcg/ 500 mls @ 10.41 mls/hr 11/10/17 09:39 Dextrose IVPB Q24H KARL Protocol 25 MCG/HR Potassium Chloride 10 meq in 100 mls @ 100 mls/hr 11/10/17 09:45 Potassium Chloride 10 Meq Premix Ivpb - IVPB 11/10/17 11:44 Q60M KARL Levothyroxine Sodium 50 mcg 11/09/17 07:00 11/10/17 06:28 Synthroid - PO 50 mcg DAILY@0700 KARL Administration Oxycodone HCl 7.5 mg 11/09/17 09:25 11/09/17 10:06 Roxicodone - PO 7.5 mg Q6H PRN Administration PAIN LEVEL 7 - 10 ASSESSMENT/PLAN: 77F w/ hx of hepatic flexure adenocarcinoma s/p right hemicolectomy, GERD, cirrhosis, cholelithiasis, and anemia who presented with BRBPR Rectal bleeding: -hemodynamically stable, monitor vitals q4h -NPO -GI consulted- Dr Padilla -ordered 3 u of PRBC, 2 u plt -monitor CBC -protonix given in ED -hold NS for now Thrombocytopenia: PLT count 15, ordered 2 u of platelets -monitor for bleeding Leukocytosis: -the pt was on abx, will monitor for signs of infection SHARITA: Cr 2.6, baseline 1.5 -will avoid nephrotoxic substances LE edema: -possibly related to malignancy, elevated BNP -will hold fluids H/o of colon ca, s/p resection: -GI consulted-Richard Padilla -palliative care f/u -will continue abx given at home GERD: cont home meds when stable Hypothyroidim: -continue Synthroid DVT PPXx; -no haparin -scds F/E/N no/no changes/NPO Disposition: ICU monitoring, poor prognosis. her daughter confirmed in ED that the pt is DNR/ DNI and documents were signed on previous admission.
[2017-11-10] MEDS: OCTREOTIDE ACETATE 1,200 MCG in DEXTROSE 5%-WATER - 488 ML IVPB SCH (10:24)
--- NOTE | 2017-11-10 11:58 | CON.CARD ---
Consult Consult Specialty:: Cardiology Referred by:: Dr. Segura Reason for Consultation:: Cardiac evaluation - History of Present Illness Chief Complaint: GI bleed History of Present Illness: Patient is a 77 year old female well known to our service with underlying history of hypothyroidism, spontaneous pneumothorax post chest tube decompression, anemia and CKD who presents with rectal bleed. She has history of right hemicolectomy in 04/2017 due to adenocarcinoma. Post op course was complicated by abscess requiring IR drainage. She complained of BRBPR which prompted her to come to the hospital. She was given PRBC and platelet transfusion and was admitted to ICU. She denies chest pain, shortness of breath or palpitations. She denies paroxysmal nocturnal dyspnea or orthopnea. She denies fever or chills. She denies nausea, vomiting, diarrhea or abdominal pain. She denies headache or lightheadedness. - History Source History Provided By: Patient, Family Member, Medical Record Limitations to Obtaining History: Clinical Condition - Past Medical History Pulmonary: Yes: Other (right spontaneous pneumothorax managed with chest tube decompression) Gastrointestinal: Yes: Cancer (hepatic flexure adenocarcinoma with invasion into lymphatics), Constipation, Esophageal Varices, GERD (Whitfield's esophagus) Hepatobiliary: Yes: Cirrhosis (? SAMPSON), Cholelithiasis, Other (ASCITES POST SURGERY, HYPOALBUMINEMIA) Renal/: Yes: Renal Failure (resolved) Infectious Disease: Yes: Other (INTRA-ABDOMINAL ABSCESS POST SURGERY) Endocrine: Yes: Hyperthyroidism (treated with RAIU and now hypothyroid, recent benign biopsy) Dermatology: Yes: Cellulitis - Past Surgical History Past Surgical History: Yes: Colectomy, Colonoscopy, (C section x 2), Oopherectomy, Upper Endoscopy - Alcohol/Substance Use Hx Alcohol Use: No History of Substance Use: reports: None - Smoking History Smoking history: Former smoker Have you smoked in the past 12 months: No If you are a former smoker, when did you quit?: 50 YEARS AGO - Social History Usual Living Arrangement: Alone ADL: Family Assistance (assisted by daughter) History of Recent Travel: No Home Medications - Allergies Allergies/Adverse Reactions: Allergies Allergy/AdvReac Type Severity Reaction Status Date / Time No Known Allergies Allergy Verified 11/07/17 20:47 - Home Medications Home Medications: Ambulatory Orders Levothyroxine [Synthroid -] 50 mcg PO DAILY@0700 tablet 05/25/17 Multivit-Min/Iron/Folic/Lutein [Centrum Silver Women Tablet] 1 each PO DAILY Pantoprazole Sodium [Protonix -] 40 mg PO BID 09/22/17 Ferrous Sulfate [Iron] 325 mg PO DAILY 10/27/17 Acetaminophen [Tylenol .Regular Strength -] 325 mg PO Q4HPO tablet 10/31/17 Dextrose 5%-0.45% Saline [D5-1/2Ns -] 75 ml IV ASDIR 30 Days #30 infus.bag 10/31 Picc Line Flush [Picc Line Flush -] 8 ml IVPUSH PRN PRN ml 10/31/17 Piperacillin/Tazob 3.375 gm [Zosyn -] 3.375 gm IVPB Q8H-IV 10 Days #30 vial oxyCODONE HCL [Roxicodone -] 5 mg PO Q6H PRN #100 tablet MDD 4 10/31/17 Potassium Chloride Oral Soln [KCl Oral Solution] 20 meq PO BID 30 Days #900 cup 11/01/17 Family Disease History - Family Disease History Family Disease History: CA: Father (lung cancer), Mother (ovarian cancer), Brother (lung cancer), Other: Son, Daughter (lupus) Review of Systems - Review of Systems Constitutional: denies: Chills, Fever Cardiovascular: denies: Chest Pain, Palpitations, Shortness of Breath Respiratory: denies: Cough, Orthopnea, PND, SOB, SOB on Exertion Gastrointestinal: reports: Melena, Rectal Bleeding. denies: Constipation, Diarrhea, Nausea, Vomiting, Vomiting Blood Neurological: reports: Weakness. denies: Dizziness, Headache, Seizure, Syncope Vital Signs: Vital Signs Temperature 98.5 F 11/10/17 08:01 Pulse Rate 73 11/10/17 11:00 Respiratory Rate 12 11/10/17 11:00 Blood Pressure 110/53 11/10/17 11:00 O2 Sat by Pulse Oximetry (%) 100 11/10/17 08:24 HENT: Yes: Atraumatic Neck: Yes: Supple Respiratory: Yes: Diminished Gastrointestinal: Yes: Normal Bowel Sounds, Soft. No: Tenderness Cardiovascular: Yes: Regular Rate and Rhythm JVD: No Carotid Bruit: No PMI: Non-Displaced Heart Sounds: Yes: S1, S2 Murmur: Yes: Systolic Murmur, Grade 1 Edema: Yes Edema: LLE: 1+, RLE: 1+ - Other Data Labs, Other Data: CBC, BMP 11/10/17 01:50 11/10/17 05:45 INR, PTT INR 2.38 (0.82-1.09) H D 11/07/17 21:34 Fibrinogen 328.0 mg/dL (238-498) 11/07/17 21:35 Laboratory Results - last 24 hr 11/10/17 11/10/17 11/10/17 01:50 02:30 05:45 WBC 29.5 H RBC 3.90 Hgb 11.6 Hct 34.3 MCV 88.0 MCH 29.8 MCHC 33.8 RDW 15.8 H Plt Count 142 D MPV 9.1 Neutrophils % Egg Gatherer Neutrophils % (Manual) 78.9 Band Neutrophils % 10.0 Lymphocytes % Egg Gatherer Lymphocytes % (Manual) 4.5 L Monocytes % Egg Gatherer Monocytes % (Manual) 1 L Eosinophils % Egg Gatherer Eosinophils % (Manual) 2.2 Basophils % [employer] Gatherer Basophils % (Manual) 0.0 Myelocytes % (Man) 0 Promyelocytes % (Man) 0 Blast Cells % (Manual) 0 Nucleated RBC % 2 H Metamyelocytes 0 Hypochromia 0 Platelet Estimate Normal Polychromasia 0 Poikilocytosis 0 Basophilic Stippling 1+ Anisocytosis 2+ Microcytosis 1+ Macrocytosis 1+ Sodium 137 Potassium 3.1 L Chloride 111 H Carbon Dioxide 15 L Anion Gap 11 BUN 32 H Creatinine 2.1 H Random Glucose 141 H Calcium 7.0 L Magnesium 1.9 Urine Color Yellow Urine Appearance Slcloudy Urine pH 5.0 Ur Specific [place] 1.019 Urine Protein 1+ H Urine Glucose (UA) Negative Urine Ketones Negative Urine Blood 1+ H Urine Nitrite Negative Urine Bilirubin Negative Urine Urobilinogen Negative Ur Leukocyte Esterase 1+ H Urine WBC (Auto) 27 Urine RBC (Auto) 1 Ur Epithelial Cells Rare Hyaline Casts 1 Urine Mucus Rare Urine Yeast Rare Sinus rhythm with sinus arrhythmia, inferior infarct Problem List - Problems (1) Anemia Code(s): D64.9 - ANEMIA, UNSPECIFIED Qualifiers: Iron deficiency anemia type: other iron deficiency (2) GIB (gastrointestinal bleeding) Code(s): K92.2 - GASTROINTESTINAL HEMORRHAGE, UNSPECIFIED Qualifiers: GI bleed type/associated pathology: melena Qualified Code(s): K92.1 - Melena (3) History of colon cancer Code(s): Z85.038 - PERSONAL HISTORY OF MALIGNANT NEOPLASM OF LARGE INTESTINE (4) Thrombocytopenia Code(s): D69.6 - THROMBOCYTOPENIA, UNSPECIFIED (5) SHARITA (acute kidney injury) Code(s): N17.9 - ACUTE KIDNEY FAILURE, UNSPECIFIED (6) Abdominal abscess Code(s): K65.1 - PERITONEAL ABSCESS (7) Chronic kidney disease Code(s): N18.9 - CHRONIC KIDNEY DISEASE, UNSPECIFIED Qualifiers: Chronic kidney disease stage: stage 2 (mild) Qualified Code(s): N18.2 - Chronic kidney disease, stage 2 (mild) (8) Hypothyroidism Code(s): E03.9 - HYPOTHYROIDISM, UNSPECIFIED Qualifiers: Hypothyroidism type: unspecified Qualified Code(s): E03.9 - Hypothyroidism , unspecified (9) Paroxysmal atrial fibrillation Code(s): I48.0 - PAROXYSMAL ATRIAL FIBRILLATION Assessment/Plan 1. GI bleed 2. Adenocarcinoma of colon s/p right hemicolectomy last year complicated by abscess 3. Anemia and thrombocytopenia 4. Acute on CKD 5. Pedal edema 6. Atrial fibrillation with RVR (Paroxysmal) PLAN: 1. Palliative care as per patient and family - hospice 2. Patient was started on Amiodarone drip last night. Consider stopping as patient remains in sinus rhythm. Patient is not a candidate for anticoagulation 3. Consider adding beta taisha if tolerated 4. Supportive care. Overall poor prognosis Tucker Marquez MD
[2017-11-10] MEDS: KCL 10 MEQ IVPB 10 MEQ/100 ML INFUS.BAG IVPB SCH (12:38)
--- NOTE | 2017-11-10 13:13 | PN ---
Teaching Attending Note Name of Resident: Danny Castillo ATTENDING PHYSICIAN STATEMENT I saw and evaluated the patient. I reviewed the resident's note and discussed the case with the resident. I agree with the resident's findings and plan as documented. SUBJECTIVE: Pt seen and examined in the ICU. Some dark stools overnight but H/H stable this AM. No shortness of breath or chest pain. No abdominal pain. Tolerated clears. OBJECTIVE: Last Vital Signs Temp Pulse Resp BP Pulse Ox 98.5 F 73 12 110/53 100 11/10/17 08:01 11/10/17 11:00 11/10/17 11:00 11/10/17 11:00 11/10/17 08:24 Intake & Output 11/07/17 11/08/17 11/09/17 11/10/17 23:59 23:59 23:59 23:59 Intake Total 2050 453.2 1315.4 Output Total 1382 720 201 Balance 668 -266.8 1114.4 Weight 74.843 kg 64.002 kg 67.495 kg 66.723 kg Gen: NAD at rest, cachectic Heart: RRR Lung: decreased breath sounds at the bases Abd: soft, nontender Ext: no edema CBC, BMP 11/10/17 01:50 11/10/17 05:45 Active Medications Amiodarone HCl 450 mg/ (Dextrose) 250 mls @ 33.33 mls/hr IVPB TITR KARL; 1 MG/ MIN PRN Reason: Protocol Last Titration: 11/10/17 10:24 Dose: 0.5 mg/min, 16.66 mls/hr Potassium Chloride 30 meq/ (Sodium Chloride) 300 mls @ 100 mls/hr IVPB ONCE ONE Stop: 11/10/17 12:29 Octreotide Acetate 1,200 mcg/ (Dextrose) 500 mls @ 10.41 mls/hr IVPB Q24H KARL; 25 MCG/HR PRN Reason: Protocol Last Admin: 11/10/17 10:24 Dose: 10.41 mls/hr Levothyroxine Sodium (Synthroid -) 50 mcg PO DAILY@0700 KARL Last Admin: 11/10/17 06:28 Dose: 50 mcg Oxycodone HCl (Roxicodone -) 7.5 mg PO Q6H PRN PRN Reason: PAIN LEVEL 7 - 10 Last Admin: 11/09/17 10:06 Dose: 7.5 mg ASSESSMENT AND PLAN: Metastatic Colon Ca s/p R Hemicolectomy Liver Cirrhosis h/o Esophageal Varices GI Bleed Acute Blood Loss Anemia s/p PRBC transfusions Thrombocytopenia improving Coagulopathy improving Acute on Chronic Renal Failure Biliary Drain - monitor H/H - titrate off octreotide - protonix - PO per GI - monitor biliary drain - monitor WBC trend - replete lytes - OOB to chair - mechanical DVT prophylaxis - can monitor on floor critical care time spent in reviewing chart, evaluating patient and formulating plan 35 min
--- NOTE | 2017-11-10 13:17 | PN ---
Progress Note (short form) - Note Progress Note: ID consult dictated imp/reccd GI bleed afib leukocytosis metastatic colon cancer s/p recent IR drainage of periduodenal fistula/abscess no fever alert cultures have been sent, received zosyn this am afib overnight, picc line site ok leukocytosis- ?leukemoid reaction to bleed/malignancy thrombocytopenia resolved f/u cultures vanco/cefepime for now adjusted for CKD ?hospice d/w Dr Segura-she will discuss with family Problem List - Problems (1) GIB (gastrointestinal bleeding) Code(s): K92.2 - GASTROINTESTINAL HEMORRHAGE, UNSPECIFIED Qualifiers: GI bleed type/associated pathology: melena Qualified Code(s): K92.1 - Melena (2) Afib Code(s): I48.91 - UNSPECIFIED ATRIAL FIBRILLATION (3) Leukocytosis Code(s): D72.829 - ELEVATED WHITE BLOOD CELL COUNT, UNSPECIFIED (4) Metastatic colon cancer in female Code(s): C78.5 - SECONDARY MALIGNANT NEOPLASM OF LARGE INTESTINE AND RECTUM
[2017-11-10] MEDS ORDERED: VANCOMYCIN 1 GRAM (PRE-DOCKED) 1,000 MG/250 ML BAG IVPB ONE (14:03)
--- NOTE | 2017-11-10 14:22 | CONSULT ---
Consultation: REQUESTING PROVIDER: CONSULT REQUEST: We have been asked to medically evaluate this patient for BRBPR. HISTORY OF PRESENT ILLNESS: 77F w/ hx of hepatic flexure adenocarcinoma s/p right hemicolectomy (performed by by Dr Torres on 04/24/17), GERD, cirrhosis, cholelithiasis, and anemia who presented from home hospice with profuse BRBPR. Postoperative course was complicated by abscesses requiring IR-placed drainage catheters. Pt has never been well enough to allow for chemotherapy. She was recently discharged home on Zosyn, d51/2 NS, NPO for 10-12 days. In the hospital here, she was found to be severely anemic Hg 5.1, PLT 15 with associated SHARITA. She was given blood, platelets transfusion, FFP, vit. K and admitted to ICU. Overnight, pt became tachycardic to 160s and was placed on amiodarone gtt. This am, pt has no complaints and denies lightheadedness, headache, chest pain, SOB, abdominal pain, n/v, dysuria. She had an episode of melena this am. REVIEW OF SYSTEMS: CONSTITUTIONAL: Absent: fever, chills, diaphoresis, generalized weakness, malaise, loss of appetite, weight change HEENT: Absent: rhinorrhea, nasal congestion, throat pain, throat swelling, difficulty swallowing, mouth swelling, ear pain, eye pain, visual changes CARDIOVASCULAR: Absent: chest pain, syncope, palpitations, irregular heart rate, lightheadedness , peripheral edema RESPIRATORY: Absent: cough, shortness of breath, dyspnea with exertion, orthopnea, wheezing, stridor, hemoptysis GASTROINTESTINAL: Absent: abdominal pain, abdominal distension, nausea, vomiting, diarrhea, constipation Present: melena GENITOURINARY: Absent: dysuria, frequency, urgency, hesitancy, hematuria, flank pain, genital pain MUSCULOSKELETAL: Absent: myalgia, arthralgia, joint swelling, back pain, neck pain SKIN: Absent: rash, itching, pallor HEMATOLOGIC/IMMUNOLOGIC: Absent: easy bruising, lymphadenopathy, frequent infections ENDOCRINE: Absent: unexplained weight gain, unexplained weight loss, heat intolerance, cold intolerance NEUROLOGIC: Absent: headache, focal weakness or paresthesias, dizziness, unsteady gait, seizure, mental status changes PSYCHIATRIC: Absent: anxiety, depression, suicidal or homicidal ideation, hallucinations. PHYSICAL EXAMINATION Vital Signs - 24 hr 11/09/17 11/09/17 11/09/17 16:00 18:00 20:00 Temperature 97.8 F Pulse Rate 80 84 82 Respiratory 10 L 18 18 Rate Blood Pressure 124/56 139/66 129/71 O2 Sat by Pulse Oximetry (%) 11/09/17 11/09/17 11/10/17 21:00 22:00 00:00 Temperature Pulse Rate 87 89 Respiratory 18 18 11 L Rate Blood Pressure 122/61 107/84 O2 Sat by Pulse 100 Oximetry (%) 11/10/17 11/10/17 11/10/17 00:26 00:33 02:00 Temperature 97.6 F Pulse Rate 167 H 157 H 142 H Respiratory 14 18 20 Rate Blood Pressure 88/57 105/72 94/76 O2 Sat by Pulse Oximetry (%) 11/10/17 11/10/17 11/10/17 03:00 04:00 05:00 Temperature Pulse Rate 134 H 143 H 137 H Respiratory 16 12 12 Rate Blood Pressure 100/55 84/61 92/69 O2 Sat by Pulse Oximetry (%) 11/10/17 11/10/17 11/10/17 06:00 06:54 08:01 Temperature 97.9 F 98.5 F Pulse Rate 122 H 76 75 Respiratory 11 L 11 L 12 Rate Blood Pressure 95/72 108/57 95/47 O2 Sat by Pulse Oximetry (%) 11/10/17 11/10/17 11/10/17 08:24 10:00 11:00 Temperature Pulse Rate 73 Respiratory 12 Rate Blood Pressure 110/53 O2 Sat by Pulse 100 99 Oximetry (%) 11/10/17 13:00 Temperature Pulse Rate 72 Respiratory 16 Rate Blood Pressure 111/46 O2 Sat by Pulse Oximetry (%) GENERAL: elderly female, lying in bed, in NAD HEENT: NC, AT LUNGS: CTAB, no rales or rhonchi HEART: Regular rate and rhythm, S1, S2 without murmurs ABDOMEN: soft, NT, ND EXTREMITIES: 2+ LE edema NEUROLOGICAL: Cranial nerves II through XII grossly intact. Normal speech Laboratory Results - last 24 hr 11/09/17 11/10/17 11/10/17 20:00 01:50 02:30 WBC 23.3 H D 29.5 H RBC 3.82 3.90 Hgb 11.4 D 11.6 Hct 33.5 34.3 MCV 87.7 88.0 MCH 29.8 29.8 MCHC 34.0 33.8 RDW 15.7 H 15.8 H Plt Count 113 L D 142 D MPV 9.2 9.1 Neutrophils % 90.2 H [facility] Neutrophils % (Manual) 78.9 Band Neutrophils % 10.0 Lymphocytes % 3.5 L D [facility] Lymphocytes % (Manual) 4.5 L Monocytes % 5.7 [facility] Monocytes % (Manual) 1 L Eosinophils % 0.4 [facility] Eosinophils % (Manual) 2.2 Basophils % 0.2 [facility] Basophils % (Manual) 0.0 Myelocytes % (Man) 0 Promyelocytes % (Man) 0 Blast Cells % (Manual) 0 Nucleated RBC % 2 H Metamyelocytes 0 Hypochromia 0 Platelet Estimate Normal Polychromasia 0 Poikilocytosis 0 Basophilic Stippling 1+ Anisocytosis 2+ Microcytosis 1+ Macrocytosis 1+ Sodium Potassium Chloride Carbon Dioxide Anion Gap BUN Creatinine Random Glucose Calcium Magnesium Urine Color Yellow Urine Appearance Slcloudy Urine pH 5.0 Ur Specific Stanley 1.019 Urine Protein 1+ H Urine Glucose (UA) Negative Urine Ketones Negative Urine Blood 1+ H Urine Nitrite Negative Urine Bilirubin Negative Urine Urobilinogen Negative Ur Leukocyte Esterase 1+ H Urine WBC (Auto) 27 Urine RBC (Auto) 1 Ur Epithelial Cells Rare Hyaline Casts 1 Urine Mucus Rare Urine Yeast Rare 11/10/17 11/10/17 05:45 05:45 WBC RBC Hgb Hct MCV MCH MCHC RDW Plt Count MPV Neutrophils % Neutrophils % (Manual) Band Neutrophils % Lymphocytes % Lymphocytes % (Manual) Monocytes % Monocytes % (Manual) Eosinophils % Eosinophils % (Manual) Basophils % Basophils % (Manual) Myelocytes % (Man) Promyelocytes % (Man) Blast Cells % (Manual) Nucleated RBC % Metamyelocytes Hypochromia Platelet Estimate Polychromasia Poikilocytosis Basophilic Stippling Anisocytosis Microcytosis Macrocytosis Sodium 137 Potassium 3.1 L Chloride 111 H Carbon Dioxide 15 L Anion Gap 11 BUN 32 H Creatinine 2.1 H Random Glucose 141 H Calcium 7.0 L Magnesium 1.9 Cancelled Urine Color Urine Appearance Urine pH Ur Specific Stanley Urine Protein Urine Glucose (UA) Urine Ketones Urine Blood Urine Nitrite Urine Bilirubin Urine Urobilinogen Ur Leukocyte Esterase Urine WBC (Auto) Urine RBC (Auto) Ur Epithelial Cells Hyaline Casts Urine Mucus Urine Yeast Active Medications Generic Name Dose Route Start Last Admin Trade Name Freq PRN Reason Stop Dose Admin Amiodarone HCl 450 mg/ 250 mls @ 33.33 mls/hr 11/10/17 02:45 11/10/17 10:24 Dextrose IVPB 0.5 mg/min TITR KARL 16.66 mls/hr Protocol Titration 1 MG/MIN Octreotide Acetate 1,200 mcg/ 500 mls @ 10.41 mls/hr 11/10/17 09:39 11/10/17 10:24 Dextrose IVPB 10.41 mls/hr Q24H [facility] Administration Protocol 25 MCG/HR Cefepime HCl 1 gm in 50 mls @ 100 mls/hr 11/10/17 22:00 Maxipime 1 Gm Premix Ivpb IVPB BID [facility]AR[facility] Levothyroxine Sodium 50 mcg 11/09/17 07:00 11/10/17 06:28 Synthroid - PO 50 mcg DAILY@0700 [facility] Administration Oxycodone HCl 7.5 mg 11/09/17 09:25 11/09/17 10:06 Roxicodone - PO 7.5 mg Q6H PRN Administration PAIN LEVEL 7 - 10 Pantoprazole Sodium 40 mg 11/10/17 14:00 Protonix Iv IVPUSH BID [facility] Vancomycin HCl 1,000 mg 11/10/17 14:03 Vancomycin (Pre-Docked) IVPB 11/10/17 14:04 ONCE ONE Protocol ASSESSMENT/PLAN: 77F w/ hx of hepatic flexure adenocarcinoma s/p right hemicolectomy, GERD, cirrhosis, cholelithiasis, and anemia who presented with BRBPR, is s/p PRBCs, platelets, FFP, and vit. K, with resolving symptoms. GI #BRBPR- resolving -one episode of melena overnight -MAPs of 63-114 -clear liquid diet -GI consulted, Dr Padilla, recs appreciated -s/p PRBC, platelets, FFP, and vitamin K -monitor CBC -protonix -octreotide gtt, weaning off #H/o of colon ca, s/p resection -GI consulted, Dr. Padilla -palliative care f #GERD -protonix Heme #Thrombocytopenia -platelets of 142 this am -monitor for bleeding ID #Leukocytosis- possibly 2/2 leukemoid reaction vs. malignancy -ID on board, recs appreciated. pt got zosyn today. Per ID, cefepime and vanc as well. Nephro #SHARITA Cr 2.1, baseline 1.5 -will avoid nephrotoxic substances Vascular #LE edema- possibly related to malignancy, elevated BNP -will hold fluids Endo #Hypothyroidim -continue Synthroid FEN/ppx -po fluids -potassium repleted -clear liquid diet -no heparin; scds -protonix Disposition ICU monitoring, poor prognosis. her daughter confirmed in ED that the pt is DNR/ DNI and documents were signed on previous admission. Case discussed with attending, Dr. Rizzo. -Danny Castillo MD PGY1 ICU Team Visit type - Emergency Visit Emergency Visit: Yes ED Registration Date: 11/08/17 Care time: The patient presented to the Emergency Department on the above date and was hospitalized for further evaluation of their emergent condition. - New Patient This patient is new to me today: Yes Date on this admission: 11/10/17 - Critical Care Critical Care patient: Yes Total Critical Care Time (in minutes): 37 Critical Care Statement: The care of this patient involved high complexity decision making to prevent further life threatening deterioration of the patient 's condition and/or to evaluate & treat vital organ system(s) failure or risk of failure.
[2017-11-10] MEDS: PANTOPRAZOLE SODIUM 40 MG VIAL IVPUSH SCH ×2 (14:30→21:46)
[2017-11-10] MEDS ORDERED: VANCOMYCIN 1,000 MG in DEXTROSE 5%-WATER - 250 ML IVPB ONE (15:15)
--- NOTE | 2017-11-10 17:03 | CONS ---
DATE OF CONSULTATION: DATE OF DICTATION: 11/10/2017 INFECTIOUS DISEASE CONSULTATION REQUESTED BY: Navjot Segura MD HISTORY OF PRESENT ILLNESS: This is an elderly woman. She was just in the hospital October 27 to November 01. She has a history of metastatic colon cancer. She is status post right hemicolectomy. She was never able to get to chemo or radiation. This was diagnosed in April 2017. In September, she had a recurrence in her duodenum, and she had a duodenal stent placed. She was admitted October 27 with drainage from one of the prior laparoscopic sites. She was found to have a collection in the right upper quadrant for which an IR drain was placed. She was started on Zosyn. The feeling that there was probably an associated fistula with this collection. After extensive discussion between the patient and primary doctor and GI, decision was made to discharge her home on IV fluids to complete another week of antibiotics. She was discharged on IV fluids and Zosyn on November 01. She was readmitted on November 07 when her family noted she had rectal bleeding. She came to the emergency room where she was found to have bleeding from the rectum. She was hypotensive as well as she had a hemoglobin of 5.1. Platelet count was 15,000. She was treated with blood products and FFP. She also was noted to have worsening renal failure. She was admitted to the ICU. By DIC parameters, was not in DIC. She responded to blood products quite well. She never had any fever. Her rectal bleeding stopped. She is now having black stools. She has no pain whatsoever and is not requesting any pain medicine. She is not short of breath and has taken her oxygen off and is breathing comfortably on room air. I am asked to see her for a slowly rising white count which today is 29,000. Of note, her hemoglobin is now 11, and her platelets are now normal at 142. She has had no fever whatsoever. PAST MEDICAL HISTORY: Notable for the history of metastatic colon cancer. She has had a history of prior spontaneous pneumothorax, constipation, esophageal varices, [place] esophagus, liver cirrhosis, renal insufficiency, hypothyroidism. SURGICAL HISTORY: Notable for C section x2, oophorectomy, and colectomy. ALLERGIES: She has no known drug allergies. MEDICATIONS: At home included levothyroxine, Protonix, ferrous sulfate, IV fluids, oral potassium, as well as piperacillin/Tazobactam which she was supposed to have finished this Friday. She has no prior history of any prior resistant organisms. SOCIAL HISTORY: She lives at home with her daughter. They have been having visiting nurse services, and this is from the infusion [facility]. There is no home hospice. REVIEW OF SYSTEMS: She denies pain. Daughter reports she was taking no pain medicine at home. She is not eating. PHYSICAL EXAMINATION: Vital Signs: She has been afebrile since admission, temperature is 98.5, pulse of 72, blood pressure 111/46, respiratory rate 16. HEENT: She is normocephalic. Eyes are anicteric. She has no thrush. Neck: Supple. Lungs: Clear to auscultation. Heart: Regular rate and rhythm. Abdomen: Soft. She has a DELFIN drain with minimal output. Extremities: She has trace edema of her arms and legs. PICC line site is without any signs of infection. There is no associated erythema. LABORATORY: White count is 29.5 with 78% poly, hemoglobin 11.6, platelets 142. INR was 2.38. Chemistries: BUN 32 and creatinine 2.1. LFTs are notable for alkaline phosphatase of 798, otherwise unremarkable with a normal bilirubin. Urine, blood, and blood cultures are pending. A urine culture done on admission on November 08 was negative. Cultures have been repeated today. She is currently also on amiodarone for her atrial fibrillation, and she received a dose of Zosyn this morning at 3 a.m. IMPRESSION: In summary, this is an elderly woman who I am asked to see for leukocytosis who has had a gastrointestinal bleed and atrial fibrillation with metastatic colon cancer, status post recent interventional radiology drainage of a paraduodenal fistula abscess. She currently has no fever, is quite alert, cultures have been sent. She is hemodynamically stable. PICC line site looks good. I question whether this is a leukemoid reaction, especially given the platelet recovery. I would agree with cultures that have been sent. We will give her a dose of vancomycin and cefepime. We are awaiting cultures. We will follow up on her cultures and further advise at that time. GILBERT MENDOZA M.D. [id number]
[2017-11-10] MEDS: CEFEPIME HCL/D5W 1 GM/50 ML BAG IVPB SCH (18:40)
[2017-11-10] MEDS ORDERED: METOPROLOL TARTRATE 5 MG/5 ML VIAL IVPUSH PRN (23:34)
[2017-11-11] MEDS: CEFEPIME HCL/D5W 1 GM/50 ML BAG IVPB SCH (06:38)
[2017-11-11] MEDS: LEVOTHYROXINE NA 50 MCG TABLET (FP) PO SCH (06:39)
[2017-11-11 06:56] LABS: BASO % 0.7 % (0-2.0); EOS % 0.9 % (0-4.5); HEMATOCRIT 31.2 % (32.4-45.2); HEMOGLOBIN 10.8 GM/dL (10.7-15.3); LYMPH % 5.4 % (8-40); MCH 31.2 pg (25.7-33.7); MCHC 34.5 g/dl (32.0-36.0); MEAN CELL VOLUME 90.4 fl (80-96); MEAN PLT VOLUME 8.8 fl (7.5-11.1); MONO % 6.7 % (3.8-10.2); NEUT % 86.3 % (42.8-82.8); PLATELET COUNT 144 K/MM3 (134-434); RBC 3.45 M/mm3 (3.60-5.2); RDW 17.2 % (11.6-15.6); WHITE BLOOD COUNT 16.6 K/mm3 (4.0-10.0)
--- NOTE | 2017-11-11 06:57 | PN ---
Progress Note (short form) - Note Progress Note: Chief Complaint: Events noted, notes reviewed, denies any chest pain or dyspnea , peripheral edema persists, sinus rhythm noted History of Present Illness: Seen and examined in the ICU. Events noted, notes reviewed, denies any chest pain or dyspnea, peripheral edema persists, sinus rhythm noted Medications: Current Medications Octreotide Acetate 1,200 mcg/ (Dextrose) 500 mls @ 10.41 mls/hr IVPB Q24H [facility]; 25 MCG/HR PRN Reason: Protocol Last Admin: 11/11/17 09:05 Dose: 10.41 mls/hr Cefepime HCl (Maxipime 1 Gm Premix Ivpb) 1 gm in 50 mls @ 100 mls/hr IVPB Q12H [facility] Last Admin: 11/11/17 06:38 Dose: 100 mls/hr Levothyroxine Sodium (Synthroid -) 50 mcg PO DAILY@0700 [facility] Last Admin: 11/11/17 06:39 Dose: 50 mcg Metoprolol Tartrate (Lopressor Injection -) 5 mg IVPUSH Q4H PRN PRN Reason: HYPERTENSION Oxycodone HCl (Roxicodone -) 7.5 mg PO Q6H PRN PRN Reason: PAIN LEVEL 7 - 10 Last Admin: 11/09/17 10:06 Dose: 7.5 mg Pantoprazole Sodium (Protonix Iv) 40 mg IVPUSH BID [facility] Last Admin: 11/11/17 09:23 Dose: 40 mg Review of Systems - Review of Systems Constitutional: denies: Chills, Fever Cardiovascular: as noted above Respiratory: denies: Cough or Sputum Production Gastrointestinal: denies: Nausea, Diarrhea, Vomiting, Constipation Or Abdominal Discomfort Neurological: denies: Dizziness or Headache Vital Signs: Last Vital Signs Temp Pulse Resp BP Pulse Ox 98.1 F 64 17 137/66 99 11/11/17 06:00 11/11/17 08:00 11/11/17 09:00 11/11/17 08:00 11/11/17 09:00 Intake & Output 11/08/17 11/09/17 11/10/17 11/11/17 23:59 23:59 23:59 23:59 Intake Total 2050 453.2 2557.4 370 Output Total 1382 720 503 400 Balance 668 -266.8 2054.4 -30 Weight 141 lb 1.6 oz 148 lb 12.8 oz 147 lb 1.6 oz 145 lb 6.4 oz Constitutional: No Distress, Calm Neck: Supple Negative JVD No Bruit Respiratory: Diminished Bilaterally at the Bases Cardiovascular: S1 S2 Regular Rate and Rhythm Gastrointestinal: Soft Benign Normal Bowel Sounds Ext: Edema Labs: CBC, BMP 11/11/17 06:15 11/11/17 06:15 Hepatic Panel Total Bilirubin 0.5 mg/dL (0.2-1.0) 11/11/17 06:15 AST 28 U/L (15-37) 11/11/17 06:15 ALT 10 U/L (12-78) L 11/11/17 06:15 Alkaline Phosphatase 589 U/L (45-117) H 11/11/17 06:15 Albumin 1.3 g/dl (3.4-5.0) L 11/11/17 06:15 INR, PTT INR 2.38 (0.82-1.09) H D 11/07/17 21:34 Fibrinogen 328.0 mg/dL (238-498) 11/07/17 21:35 Assessment/Plan ASSESSMENT: 1. Paroxysmal atrial fibrillation [id number] score of 3, currently in sinus rhythm not an appropriate candidate for anticoagulation related to 2. Gastrointestinal bleed 3. History of adenocarcinoma of colon post right hemicolectomy/last year complicated by abscess formation 4. Anemia and thrombocytopenia 5. Acute on CKD 6. Persistence pedal edema PLAN: 1. If atrial fibrillation recurs recommend resumption of Amiodarone therapy 2. As outlined above patient is not an appropriate candidate for lead technical architect anticoagulation considering the above-noted clinical presentation with gastrointestinal bleed/anemia/thrombocytopenia 3. Continue beta taisha therapy with caution hemodynamics permitting 4. Plan for palliative/supportive care as outlined in prior note Dania Gerard M.D.
--- NOTE | 2017-11-11 07:01 | PN ---
Progress Note, Physician Chief Complaint: in bed had some tachycardia, received IV amio then IV toprol; no CP/SOB; seen by cardiology again expressed wish to go home on hospice to in her bed; wants home hospice but does not want any more meds, no IVF no IV antibiotics, not even morphine for home; does not want [facility] d/w pt and daughter at bedside, I will d/w hospice nurse to arrange DC home on hospice care - Current Medication List Current Medications: Active Medications Octreotide Acetate 1,200 mcg/ (Dextrose) 500 mls @ 10.41 mls/hr IVPB Q24H [facility]; 25 MCG/HR PRN Reason: Protocol Last Admin: 11/10/17 10:24 Dose: 10.41 mls/hr Cefepime HCl (Maxipime 1 Gm Premix Ivpb) 1 gm in 50 mls @ 100 mls/hr IVPB Q12H [facility] Last Admin: 11/11/17 06:38 Dose: 100 mls/hr Levothyroxine Sodium (Synthroid -) 50 mcg PO DAILY@0700 [facility] Last Admin: 11/11/17 06:39 Dose: 50 mcg Metoprolol Tartrate (Lopressor Injection -) 5 mg IVPUSH Q4H PRN PRN Reason: HYPERTENSION Oxycodone HCl (Roxicodone -) 7.5 mg PO Q6H PRN PRN Reason: PAIN LEVEL 7 - 10 Last Admin: 11/09/17 10:06 Dose: 7.5 mg Pantoprazole Sodium (Protonix Iv) 40 mg IVPUSH BID [facility] Last Admin: 11/10/17 21:46 Dose: 40 mg - Objective Vital Signs: Vital Signs Temperature 98.1 F 11/11/17 06:00 Pulse Rate 74 11/11/17 06:00 Respiratory Rate 12 11/11/17 06:00 Blood Pressure 136/80 11/11/17 06:00 O2 Sat by Pulse Oximetry (%) 99 11/10/17 20:00 Constitutional: Yes: No Distress, Calm Eyes: Yes: Conjunctiva Clear HENT: Yes: Atraumatic Neck: Yes: Supple Cardiovascular: Yes: Regular Rate and Rhythm Respiratory: Yes: Diminished Gastrointestinal: Yes: Soft. No: Distention Genitourinary: No: Hematuria Musculoskeletal: No: Joint Stiffness, Joint Swelling Extremities: No: Cold, Cool Edema: Yes (U/LE bilat ) Integumentary: No: Rash Neurological: Yes: WNL, Alert, Oriented ...Motor Strength: WNL Psychiatric: Yes: WNL, Alert, Oriented. No: Agitated, Suicidal Ideation Labs: INR, PTT INR 2.38 (0.82-1.09) H D 11/07/17 21:34 Fibrinogen 328.0 mg/dL (238-498) 11/07/17 21:35 - ....Imaging Other: Report Reviewed Assessment/Plan 77 YOF advanced colon CA with local mets and invasion, erosion into duodenum and biliary tree, admitted with rectal bleed and anemia, low PLT, ARF s/p PRBC and PLT IVF IV antibiotics f/u labs CX heme onc GI f/u; eval for home hospice - pt to be DC home on hospice as soon as hospice in place for home, will d/w nurse from [facility] today; prognosis poor DNR DNI d/w pt and daughter and ICU staff; pt's daughter also spoke with her brother (pt 's son) about pt's wishes and they are all in agreement with the current plan. t time 35 min
[2017-11-11 07:33] LABS: ALBUMIN 1.3 g/dl (3.4-5.0); ANION GAP 7 (8-16); BLOOD UREA NITROGEN 31 mg/dL (7-18); CALCIUM 7.2 mg/dL (8.5-10.1); CHLORIDE 113 mmol/L (98-107); CO2 17 mmol/L (21-32); GLUCOSE,RANDOM 108 mg/dL (74-106); MAGNESIUM 1.9 mg/dL (1.8-2.4); POTASSIUM 4.2 mmol/L (3.5-5.1); SODIUM 137 mmol/L (136-145)
[2017-11-11 07:46] LABS: ALK PHOS 589 U/L (45-117); BILIRUBIN,TOTAL 0.5 mg/dL (0.2-1.0); CREATININE 1.9 mg/dL (0.55-1.02); PHOSPHOROUS 3.9 mg/dL (2.5-4.9); SGOT/AST 28 U/L (15-37); SGPT/ALT 10 U/L (12-78); TOT PROT 4.6 g/dl (6.4-8.2)
[2017-11-11] MEDS: OCTREOTIDE ACETATE 1,200 MCG in DEXTROSE 5%-WATER - 488 ML IVPB SCH (09:05)
[2017-11-11] MEDS: PANTOPRAZOLE SODIUM 40 MG VIAL IVPUSH SCH ×2 (09:23→21:32)
--- NOTE | 2017-11-11 12:33 | PN ---
Teaching Attending Note Name of Resident: Danny Castillo ATTENDING PHYSICIAN STATEMENT I saw and evaluated the patient. I reviewed the resident's note and discussed the case with the resident. I agree with the resident's findings and plan as documented. SUBJECTIVE: Pt seen and examined in the ICU. No bloody bowel movements. No shortness of breath or chest pain. No abdominal pain. OBJECTIVE: Last Vital Signs Temp Pulse Resp BP Pulse Ox 97.4 F L 68 14 135/64 99 11/11/17 10:00 11/11/17 10:00 11/11/17 10:00 11/11/17 10:00 11/11/17 12:00 Intake & Output 11/08/17 11/09/17 11/10/17 11/11/17 23:59 23:59 23:59 23:59 Intake Total 2050 453.2 2557.4 370 Output Total 1382 720 503 400 Balance 668 -266.8 2054.4 -30 Weight 64.002 kg 67.495 kg 66.723 kg 65.952 kg Gen: NAD at rest, cachectic Heart: RRR Lung: decreased breath sounds at the bases Abd: soft, nontender Ext: + edema CBC, BMP 11/11/17 06:15 11/11/17 06:15 Active Medications Cefepime HCl (Maxipime 1 Gm Premix Ivpb) 1 gm in 50 mls @ 100 mls/hr IVPB Q12H [facility] Last Admin: 11/11/17 06:38 Dose: 100 mls/hr Levothyroxine Sodium (Synthroid -) 50 mcg PO DAILY@0700 [facility] Last Admin: 11/11/17 06:39 Dose: 50 mcg Metoprolol Tartrate (Lopressor Injection -) 5 mg IVPUSH Q4H PRN PRN Reason: HYPERTENSION Oxycodone HCl (Roxicodone -) 7.5 mg PO Q6H PRN PRN Reason: PAIN LEVEL 7 - 10 Last Admin: 11/09/17 10:06 Dose: 7.5 mg Pantoprazole Sodium (Protonix Iv) 40 mg IVPUSH BID [facility] Last Admin: 11/11/17 09:23 Dose: 40 mg ASSESSMENT AND PLAN: Metastatic Colon Ca s/p R Hemicolectomy Liver Cirrhosis h/o Esophageal Varices GI Bleed Acute Blood Loss Anemia s/p PRBC transfusions Thrombocytopenia improving Coagulopathy improving Acute on Chronic Renal Failure Biliary Drain - titrate off octreotide - PO per GI - discussion with patient and daughter confirming they would like home hospice , no further medications, blood draws, IV medications - they would also like to d/c PICC line and biliary drain - mechanical DVT prophylaxis - can monitor on floor critical care time spent in reviewing chart, evaluating patient and formulating plan 35 min
--- NOTE | 2017-11-11 12:58 | PN ---
Progress Note (short form) - Note Progress Note: mom is sleeping d/w dr bourne and daughter at bedside no further interventions will d/c antibiotics home with hospice
--- NOTE | 2017-11-11 13:08 | PN ---
Physical Exam: SUBJECTIVE: Patient seen and examined No acute events overnight. Amiodarone gtt discontinued. Pt reports having a small BM overnight, and nurse did not mention any blood in it. Pt denies lightheadedness, headache, SOB, chest pain, n/v, abdominal pain, and dysuria. In morning, pt became bradycardic, an EKG was done, and it was unremarkable. Daughter present in room. Pt and daughter stated that they don't want any more IV medications or blood draws, and they want the PICC and drain removed. Daughter stated that she would confirm home hospice situation with Lisa. OBJECTIVE: Vital Signs Period Temp Pulse Resp BP Sys/Benavides Pulse Ox Last 24 Hr 97.4 F-98.8 F 64-74 12-18 117-138/58-80 99-99 GENERAL: elderly female, lying in bed, in NAD HEENT: NC, AT LUNGS: CTAB, no rales or rhonchi HEART: Regular rate and rhythm, S1, S2 without murmurs ABDOMEN: soft, NT, ND EXTREMITIES: 2+ edema in all extremities NEUROLOGICAL: Cranial nerves II through XII grossly intact. Normal speech Laboratory Results - last 24 hr 11/07/17 11/10/17 11/11/17 21:34 Unknown 06:15 WBC RBC Hgb Hct MCV MCH MCHC RDW Plt Count MPV Neutrophils % Lymphocytes % Monocytes % Eosinophils % Basophils % Sodium 137 Potassium 4.2 4.2 Chloride 113 H Carbon Dioxide 17 L Anion Gap 7 L BUN 31 H Creatinine 1.9 H Creat Clearance w eGFR 25.63 Random Glucose 108 H Calcium 7.2 L Phosphorus 3.9 Magnesium 1.9 Total Bilirubin 0.5 AST 28 ALT 10 L Alkaline Phosphatase 589 H Total Protein 4.6 L Albumin 1.3 L TSH 12.40 H Blood Type O POSITIVE Antibody Screen Negative Crossmatch See Detail 11/11/17 06:15 WBC 16.6 H D RBC 3.45 L Hgb 10.8 Hct 31.2 L MCV 90.4 MCH 31.2 MCHC 34.5 RDW 17.2 H Plt Count 144 MPV 8.8 Neutrophils % 86.3 H Lymphocytes % 5.4 L D Monocytes % 6.7 Eosinophils % 0.9 D Basophils % 0.7 D Sodium Potassium Chloride Carbon Dioxide Anion Gap BUN Creatinine Creat Clearance w eGFR Random Glucose Calcium Phosphorus Magnesium Total Bilirubin AST ALT Alkaline Phosphatase Total Protein Albumin TSH Blood Type Antibody Screen Crossmatch Active Medications Generic Name Dose Route Start Last Admin Trade Name Freq PRN Reason Stop Dose Admin Oxycodone HCl 7.5 mg 11/09/17 09:25 11/09/17 10:06 Roxicodone - PO 7.5 mg Q6H PRN Administration PAIN LEVEL 7 - 10 Pantoprazole Sodium 40 mg 11/10/17 14:00 11/11/17 09:23 Protonix Iv IVPUSH 40 mg BID KARL Administration ASSESSMENT/PLAN: 77F w/ hx of hepatic flexure adenocarcinoma s/p right hemicolectomy, GERD, cirrhosis, cholelithiasis, and anemia who presented with BRBPR, is s/p PRBCs, platelets, FFP, and vit. K, with resolving symptoms. GI #BRBPR- resolving -no further reported episodes of melena or hematochezia -MAPs of 63-98 -clear liquid diet well tolerated, pt wants to remain on this diet -GI consulted, Dr Padilla, recs appreciated -s/p PRBC, platelets, FFP, and vitamin K -monitor CBC. Hgb of 10.8, down from 11.6 yesterday -protonix -octreotide gtt d/c'd #H/o of colon ca, s/p resection -GI consulted, Dr. Padilla -palliative care, pt to go on home hospice #GERD -protonix Heme #Thrombocytopenia -platelets of 144 this am -monitor for bleeding ID #Leukocytosis- possibly 2/2 leukemoid reaction vs. malignancy -leukocytosis of 16.6, down from 29. afebrile overnight. -ID on board, recs appreciated. Due to pt's wishes, abx discontinued -cultures pending Nephro #SHARITA Cr 1.9, improving, baseline 1.5 -will avoid nephrotoxic substances Vascular #LE edema- possibly related to malignancy, elevated BNP -will hold fluids Endo #Hypothyroidim -Synthroid FEN/ppx -po fluids -electrolytes wnl -clear liquid diet -no heparin; scds -protonix Disposition -stable for transfer to floors -her daughter confirmed in ED that the pt is DNR/DNI and documents were signed on previous admission. Case discussed with attending, Dr. Rizzo. -Danny Castillo MD PGY1 ICU Team Visit type - Emergency Visit Emergency Visit: Yes ED Registration Date: 11/08/17 Care time: The patient presented to the Emergency Department on the above date and was hospitalized for further evaluation of their emergent condition. - New Patient This patient is new to me today: No - Critical Care Critical Care patient: Yes Total Critical Care Time (in minutes): 35 Critical Care Statement: The care of this patient involved high complexity decision making to prevent further life threatening deterioration of the patient 's condition and/or to evaluate & treat vital organ system(s) failure or risk of failure.
--- NOTE | 2017-11-11 13:34 | EKG ---
Test Reason : Blood Pressure : / mmHG Vent. Rate : 067 BPM Atrial Rate : 067 BPM P-R Int : 136 ms QRS Dur : 084 ms QT Int : 442 ms P-R-T Axes : 000 -24 -14 degrees QTc Int : 467 ms NORMAL SINUS RHYTHM LOW VOLTAGE QRS POSSIBLE ANTEROLATERAL INFARCT (CITED ON OR BEFORE 17-MAR-2017) ABNORMAL ECG WHEN COMPARED WITH ECG OF 10-NOV-2017 00:38, SINUS RHYTHM HAS REPLACED ATRIAL FIBRILLATION VENT. RATE HAS DECREASED BY 90 BPM QUESTIONABLE CHANGE IN INITIAL FORCES OF LATERAL LEADS NONSPECIFIC T WAVE ABNORMALITY, IMPROVED IN LATERAL LEADS Confirmed by MD Charlie, Julian ([id number]) on 11/11/2017 1:34:11 PM Referred By: Confirmed By:Julian Guerra MD
--- NOTE | 2017-11-11 13:36 | EKG ---
Test Reason : Blood Pressure : / mmHG Vent. Rate : 157 BPM Atrial Rate : 090 BPM P-R Int : 000 ms QRS Dur : 076 ms QT Int : 306 ms P-R-T Axes : 000 -14 -33 degrees QTc Int : 494 ms ATRIAL FIBRILLATION WITH RAPID VENTRICULAR RESPONSE LOW VOLTAGE QRS CANNOT RULE OUT ANTERIOR INFARCT (CITED ON OR BEFORE 17-MAR-2017) ABNORMAL ECG WHEN COMPARED WITH ECG OF 07-NOV-2017 20:33, ATRIAL FIBRILLATION HAS REPLACED SINUS RHYTHM VENT. RATE HAS INCREASED BY 72 BPM NONSPECIFIC T WAVE ABNORMALITY, WORSE IN LATERAL LEADS Confirmed by MD Guerra Daniel ([id number]) on 11/11/2017 1:35:43 PM Referred By: Confirmed By:Julian Guerra MD
[2017-11-11] MEDS ORDERED: METOPROLOL TARTRATE 5 MG/5 ML VIAL ONE (21:31)
[2017-11-11] MEDS ORDERED: METOPROLOL TARTRATE 5 MG/5 ML VIAL IVPUSH PRN (21:40)
--- NOTE | 2017-11-11 22:48 | PN ---
GI Progress Note Subjective: GI NOte: Awake tonight. No abdominal pain but has back pain and can't find a comfortable position. No further overt brisk bleeding. Has opted for home hospice care with [facility]. - Objective Vital Signs: Vital Signs Temperature 98.7 F 11/11/17 22:00 Pulse Rate 124 H 11/11/17 22:00 Respiratory Rate 14 11/11/17 22:00 Blood Pressure 124/56 11/11/17 22:00 O2 Sat by Pulse Oximetry (%) 99 11/11/17 20:49 Laboratory Tests 11/10/17 11/11/17 11/11/17 01:50 06:15 06:15 WBC 29.5 H 16.6 H D Hgb 11.6 10.8 Total Bilirubin 0.5 Constitutional: Calm ...Auscultate: Yes: Hypoactive Bowel Sounds ...Palpate: Yes: Soft, Other (nontender) Labs: CBC, BMP 11/11/17 06:15 11/11/17 06:15 INR, PTT INR 2.38 (0.82-1.09) H D 11/07/17 21:34 Fibrinogen 328.0 mg/dL (238-498) 11/07/17 21:35 Assessment/Plan Prognosis grim. Concur with hospice care. Daughter is present.
--- NOTE | 2017-11-12 06:45 | PN ---
Progress Note (short form) - Note Progress Note: Chief Complaint: Events noted, notes reviewed, recurrent atrial fibrillation earlier this AM, denies any chest pain or dyspnea, peripheral edema persists with blueish left foot discoloration, sinus rhythm noted History of Present Illness: Seen and examined in the ICU. Events noted, notes reviewed, recurrent atrial fibrillation earlier this AM, denies any chest pain or dyspnea, peripheral edema persists with blueish left foot discoloration, sinus rhythm noted Medications: Current Medications Metoprolol Tartrate (Lopressor Injection -) 5 mg IVPUSH Q6H PRN PRN Reason: FOR HR>120 Last Admin: 11/11/17 22:50 Dose: 5 mg Oxycodone HCl (Roxicodone -) 7.5 mg PO Q6H PRN PRN Reason: PAIN LEVEL 7 - 10 Last Admin: 11/09/17 10:06 Dose: 7.5 mg Pantoprazole Sodium (Protonix Iv) 40 mg IVPUSH BID KARL Last Admin: 11/11/17 21:32 Dose: 40 mg Review of Systems - Review of Systems Constitutional: denies: Chills, Fever Cardiovascular: As noted above Respiratory: denies: Cough or Sputum Production Gastrointestinal: denies: Nausea, Diarrhea, Vomiting, Constipation Or Abdominal Discomfort Neurological: denies: Dizziness or Headache Vital Signs: Last Vital Signs Temp Pulse Resp BP Pulse Ox 986 F H 67 18 107/54 99 11/12/17 06:00 11/12/17 06:00 11/12/17 06:00 11/12/17 06:00 11/11/17 20:49 Intake & Output 11/09/17 11/10/17 11/11/17 11/12/17 23:59 23:59 23:59 23:59 Intake Total 453.2 2557.4 1040 125 Output Total 720 503 620 260 Balance -266.8 2054.4 420 -135 Weight 148 lb 12.8 oz 147 lb 1.6 oz 145 lb 6.4 oz 146 lb 4.8 oz Constitutional: No Distress, Calm Neck: Supple Negative JVD No Bruit Respiratory: Diminished Bilaterally at the Bases Cardiovascular: S1 S2 Regular Rate and Rhythm Gastrointestinal: Soft Benign Normal Bowel Sounds Ext: Edema Blueish Left Foot Discoloration and Coldness Labs: CBC, BMP 11/11/17 06:15 11/11/17 06:15 Hepatic Panel Total Bilirubin 0.5 mg/dL (0.2-1.0) 11/11/17 06:15 AST 28 U/L (15-37) 11/11/17 06:15 ALT 10 U/L (12-78) L 11/11/17 06:15 Alkaline Phosphatase 589 U/L (45-117) H 11/11/17 06:15 Albumin 1.3 g/dl (3.4-5.0) L 11/11/17 06:15 INR, PTT INR 2.38 (0.82-1.09) H D 11/07/17 21:34 Fibrinogen 328.0 mg/dL (238-498) 11/07/17 21:35 Assessment/Plan ASSESSMENT: 1. Paroxysmal atrial fibrillation [id number] score of 3, currently in sinus rhythm not an appropriate candidate for anticoagulation related to 2. Gastrointestinal bleed 3. History of adenocarcinoma of colon post right hemicolectomy/last year complicated by abscess formation 4. Anemia and thrombocytopenia 5. Acute on CKD 6. Persistence pedal edema with foot discoloration PLAN: 1. Initiate Amiodarone therapy 2. Initiate PO Lopressor therapy hemodynamics permitting 3. As outlined above patient is not an appropriate candidate for intermediate anticoagulation considering the above-noted clinical presentation with gastrointestinal bleed/anemia/thrombocytopenia 4. Plan for palliative/supportive care as outlined in prior notes, plan to D/C home without any further intervention Dania Gerard M.D.
--- NOTE | 2017-11-12 06:59 | DS ---
Physical Examination Vital Signs: Vital Signs Temperature 986 F H 11/12/17 06:00 Pulse Rate 67 11/12/17 06:00 Respiratory Rate 18 11/12/17 06:00 Blood Pressure 107/54 11/12/17 06:00 O2 Sat by Pulse Oximetry (%) 99 11/11/17 20:49 Findings/Remarks: in ICU awake alert NAD able to ask questions and to respond appropriately, daughter at bedside Braga removed; PICC line removed; R sided abdominal drain tube in place draining in the bag small amt of fluid, per daughter had some small amt of leaking around it earlier but she and pt do not want to have it reinserted by IR pt has no pain and wants to go home ewa; I d/w hospice nurse - she has home O2 , oxycodone prn for pain scripts done and d/w daughter at bedside Constitutional: Yes: No Distress, Calm Eyes: Yes: Conjunctiva Clear HENT: Yes: Atraumatic Neck: Yes: Supple Cardiovascular: Yes: Regular Rate and Rhythm Respiratory: Yes: Diminished Gastrointestinal: Yes: Soft. No: Distention, Tenderness Renal/: No: CVA Tenderness - Left, CVA Tenderness - Right Musculoskeletal: No: Joint Stiffness, Joint Swelling Extremities: No: Cold, Cool Edema: Yes (extremities) Integumentary: No: Rash, Venous Stasis Changes Neurological: Yes: WNL, Alert, Oriented ...Motor Strength: WNL Psychiatric: Yes: WNL, Alert, Oriented. No: Agitated, Suicidal Ideation Labs: CBC, BMP 11/11/17 06:15 11/11/17 06:15 Discharge Summary Reason For Visit: ANEMIA, GENERALIZED EDEMA Current Active Problems Afib (Acute) Anasarca (Acute) Anemia (Acute) Duodenal mass (Acute) GIB (gastrointestinal bleeding) (Acute) History of colon cancer (Acute) Leukocytosis (Acute) Metastatic colon cancer in female (Acute) Paroxysmal atrial fibrillation (Acute) Thrombocytopenia (Acute) Procedures: Principal: admitted with low GI bleed anemia and low PLT; ARF Other Procedures: transfused PRBC and PLT; also received IVF, IV ATB, lytes repleated;. seen by GI, heme onc, hospice;. bleeding stopped, counts improved; Hospital Course: DNR DNI pt to be DC home on hospice / comfort care only per pt's wish Condition: Guarded - Instructions Diet, Activity, Other Instructions: home hospice and comfort care Referrals: Sayda Segura [Staff Physician] - Disposition: HOME - Home Medications Comprehensive Discharge Medication List: Ambulatory Orders Levothyroxine [Synthroid -] 50 mcg PO DAILY@0700 tablet 05/25/17 Pantoprazole Sodium [Protonix -] 40 mg PO BID 09/22/17 Ferrous Sulfate [Iron] 325 mg PO DAILY 10/27/17 Acetaminophen [Tylenol .Regular Strength -] 325 mg PO Q4HPO tablet 10/31/17 Picc Line Flush [Picc Line Flush -] 8 ml IVPUSH PRN PRN ml 10/31/17 oxyCODONE HCL [Roxicodone -] 5 mg PO Q6H PRN #100 tablet MDD 4 10/31/17 Potassium Chloride Oral Soln [KCl Oral Solution] 20 meq PO BID 30 Days #900 cup 11/01/17 Metoprolol Tartrate [Lopressor -] 25 mg PO BID #60 tablet 11/12/17
--- NOTE | 2017-11-12 09:32 | PN ---
Physical Exam: SUBJECTIVE: Patient seen and examined. Overnight, pt became tachy to 150s, placed on amiodoranone 200 BID and lopressor 25 BID. This am, pt has no complaints. She denies chest pain, SOB, abdominal pain, n/v/d/c, and dysuria. She denies any further episodes of BRBPR. OBJECTIVE: Vital Signs Period Temp Pulse Resp BP Sys/Benavides Pulse Ox Last 24 Hr 97.4 F-986 F 67-154 12-18 107-135/54-91 99-99 GENERAL: elderly female, lying in bed, in NAD HEENT: NC, AT LUNGS: CTAB, no rales or rhonchi HEART: Regular rate and rhythm, S1, S2 without murmurs ABDOMEN: soft, NT, ND EXTREMITIES: 2+ edema in all extremities NEUROLOGICAL: Cranial nerves II through XII grossly intact. Normal speech Laboratory Results - last 24 hr 11/07/17 21:34 Blood Type O POSITIVE Antibody Screen Negative Crossmatch See Detail Active Medications Generic Name Dose Route Start Last Admin Trade Name Freq PRN Reason Stop Dose Admin Amiodarone HCl 200 mg 11/12/17 10:00 Cordarone - PO BID KARL Metoprolol Tartrate 5 mg 11/11/17 21:40 11/11/17 22:50 Lopressor Injection - IVPUSH 5 mg Q6H PRN Administration FOR HR>120 Metoprolol Tartrate 25 mg 11/12/17 10:00 Lopressor - PO BID KARL Oxycodone HCl 7.5 mg 11/09/17 09:25 11/09/17 10:06 Roxicodone - PO 7.5 mg Q6H PRN Administration PAIN LEVEL 7 - 10 Pantoprazole Sodium 40 mg 11/10/17 14:00 11/11/17 21:32 Protonix Iv IVPUSH 40 mg BID KARL Administration ASSESSMENT/PLAN: 77F w/ hx of hepatic flexure adenocarcinoma s/p right hemicolectomy, GERD, cirrhosis, cholelithiasis, and anemia who presented with BRBPR, is s/p PRBCs, platelets, FFP, and vit. K, with resolving symptoms. Pt going home on home hospice, and requests no more blood draws, IV medications, and to remove PICC line. GI #BRBPR- resolving -no further reported episodes of melena or hematochezia -MAPs of 63-98 -clear liquid diet well tolerated, pt wants to remain on this diet -GI consulted, Dr Padilla, recs appreciated -s/p PRBC, platelets, FFP, and vitamin K -no labs this am -protonix -drain in place -PICC removed #H/o of colon ca, s/p resection -GI consulted, Dr. Padilla -palliative care, pt to go on home hospice #GERD -protonix Heme #Thrombocytopenia -no labs this am, no further episodes of bleeding ID #Leukocytosis- possibly 2/2 leukemoid reaction vs. malignancy -no labs this am, afebrile overnight. -ID on board, recs appreciated. Due to pt's wishes, abx discontinued Nephro #SHARITA -will avoid nephrotoxic substances Endo #Hypothyroidim FEN/ppx -po fluids -no labs today -clear liquid diet -no heparin; scds -protonix Disposition -stable for discharge -her daughter confirmed in ED that the pt is DNR/DNI and documents were signed on previous admission -pt going home on home hospice via [facility] Case discussed with attending, Dr. Rizzo. -Danny Castillo MD PGY1 ICU Team Visit type - Emergency Visit Emergency Visit: Yes ED Registration Date: 11/08/17 Care time: The patient presented to the Emergency Department on the above date and was hospitalized for further evaluation of their emergent condition. - New Patient This patient is new to me today: No - Critical Care Critical Care patient: Yes Total Critical Care Time (in minutes): 35 Critical Care Statement: The care of this patient involved high complexity decision making to prevent further life threatening deterioration of the patient 's condition and/or to evaluate & treat vital organ system(s) failure or risk of failure.
[2017-11-12] MEDS ORDERED: METOPROLOL TARTRATE 25 MG TABLET (FP) PO SCH (10:00)
[2017-11-12] MEDS ORDERED: AMIODARONE HCL 200 MG TABLET (FP) PO SCH (10:00)
[2017-11-12 10:45] VITALS: TEMP 97.3
[2017-11-12] MEDS: PANTOPRAZOLE SODIUM 40 MG VIAL IVPUSH SCH (12:05)
--- NOTE | 2017-11-12 12:19 | PN ---
Teaching Attending Note Name of Resident: Danny Castillo ATTENDING PHYSICIAN STATEMENT I saw and evaluated the patient. I reviewed the resident's note and discussed the case with the resident. I agree with the resident's findings and plan as documented. SUBJECTIVE: Pt seen and examined in the ICU. No further bleeding. Denies pain, shortness of breath or chest pain. OBJECTIVE: Last Vital Signs Temp Pulse Resp BP Pulse Ox 97.3 F L 65 18 115/57 99 11/12/17 10:00 11/12/17 10:00 11/12/17 10:00 11/12/17 10:00 11/12/17 09:00 Intake & Output 11/09/17 11/10/17 11/11/17 11/12/17 23:59 23:59 23:59 23:59 Intake Total 453.2 2557.4 1040 125 Output Total 720 503 620 260 Balance -266.8 2054.4 420 -135 Weight 67.495 kg 66.723 kg 65.952 kg 66.361 kg Gen: NAD at rest Heart: RRR Lung: decreased breath sounds at the bases Abd: soft, nontender Ext: + edema CBC, BMP 11/11/17 06:15 11/11/17 06:15 Active Medications Amiodarone HCl (Cordarone -) 200 mg PO BID [facility] Last Admin: 11/12/17 12:08 Dose: 200 mg Metoprolol Tartrate (Lopressor Injection -) 5 mg IVPUSH Q6H PRN PRN Reason: FOR HR>120 Last Admin: 11/11/17 22:50 Dose: 5 mg Metoprolol Tartrate (Lopressor -) 25 mg PO BID [facility] Last Admin: 11/12/17 12:08 Dose: Not Given Oxycodone HCl (Roxicodone -) 7.5 mg PO Q6H PRN PRN Reason: PAIN LEVEL 7 - 10 Last Admin: 11/09/17 10:06 Dose: 7.5 mg Pantoprazole Sodium (Protonix Iv) 40 mg IVPUSH BID [facility] Last Admin: 11/12/17 12:05 Dose: Not Given ASSESSMENT AND PLAN: Metastatic Colon Ca s/p R Hemicolectomy Liver Cirrhosis h/o Esophageal Varices GI Bleed Acute Blood Loss Anemia s/p PRBC transfusions Thrombocytopenia improving Coagulopathy improving Acute on Chronic Renal Failure Biliary Drain - continue supportive, comfort measures - d/c home with hospice
[2017-11-12 12:26] VITALS: BP 118/56; PULSE 60
== END 2017-11-12 12:45 | disposition home or self-care (01) | DRG 813 ==
LOC: JER 19:57 → JERBED 11-08 02:04 → JICU 11-08 03:04
PROVIDERS: ADMIT Internal Medicine; ATTEND Specialist
PROC: 30233N1 Transfusion of Nonautologous Red Blood Cells into Peripheral Vein, Percutaneous Approach (ICD-10-PCS; principal; 2017-11-08)
PROC: 30233L1 Transfusion of Nonautologous Fresh Plasma into Peripheral Vein, Percutaneous Approach (ICD-10-PCS; 2017-11-08)
PROC: 30233K1 Transfusion of Nonautologous Frozen Plasma into Peripheral Vein, Percutaneous Approach (ICD-10-PCS; 2017-11-08)
PROC: 30233R1 Transfusion of Nonautologous Platelets into Peripheral Vein, Percutaneous Approach (ICD-10-PCS; 2017-11-08)
DX: D69.6 Thrombocytopenia, unspecified (principal); K92.2 Gastrointestinal hemorrhage, unspecified; N17.9 Acute kidney failure, unspecified; D62 Acute posthemorrhagic anemia; R64 Cachexia; D68.9 Coagulation defect, unspecified; D72.829 Elevated white blood cell count, unspecified; K21.9 Gastro-esophageal reflux disease without esophagitis; E03.9 Hypothyroidism, unspecified; Z85.038 Personal history of other malignant neoplasm of large intestine; K74.60 Unspecified cirrhosis of liver; I48.0 Paroxysmal atrial fibrillation; Z68.28 Body mass index [BMI] 28.0-28.9, adult
CPT/HCPCS: 36415; 36430; 71045-TC-FY; 80048; 80053; 81003; 81015; 82550; 83735; 83880; 84100; 84132; 84443; 84484; 85025; 85027; 85379; 85384; 85610; 85730; 86850; 86900; 86901; 86922; 87040; 87070; 87075; 87077; 87086; 87186; 87205; 93005; 93010; 99283-25; P9017; P9034; P9038; P9058